=== PATIENT | male | born 1955 | race Caucasian/White ===

== ENCOUNTER 2023-02-25 08:15 | Observation (INO) | payer OTHER ==
--- OUTSIDE RECORDS SUMMARY | 2023-02-25 08:30 | XMS REPORT | Continuity of Care Document ---
:1955 Author Organization [facility] t Address [address] [place] [address] [address] [place] [address] Care Team Providers Name Role Phone Ji CUMMINS, Tani Acosta Primary Care Physician Zara Kumari Attending Clinician Unavailable Brenden Anthony Attending Clinician Unavailable Jae Jaffe I Attending Clinician Unavailable Mehran Rowe Attending Clinician Unavailable Rose Davies Physic Attending Clinician Unavailable IkRadha Attending Clinician Unavailable Ian Coronel Attending Clinician Unavailable Rose Davies Physic Admitting Clinician Unavailable Jae Jaffe I Admitting Clinician Unavailable IksoilaC Admitting Clinician Unavailable Avel Banerjee Admitting Clinician Unavailable Payers Payer Name Policy Type Policy Number Effective Date Expiration Date Dave ROWE (MEDICARE [id number] 2019 REPLACEMENT PPO) 00:00:00 Problems Condition Condition Condition Status Onset Resolution Last Treating Co mments Source Name Details Category Date Date Treatment Clinician Date Upper Upper Problem Active 2020-09 [facility] respirator Respirator 1-20 Fa charlene y y 00:00: Practic infection Infection 00 e Type 2 Type 2 Disease Active Methodi diabetes diabetes 04-16 mellitus mellitus 00:00: Hospit a without without 00 l complicati complicati on, with on, with long-term long-term current current use of use of insulin insulin Essential Essential Disease Active Met [facility] hypertensi hypertensi 04-16 on on 00:00: Hospita 00 l Mixed Mixed Disease Active Methodi hyperlipid hyperlipid 04-16 emia emia 00:00: Hospita 00 l Dupuytren' Dupuytren' Disease Active M ethodi s s 04-16 contractur contractur 00:00: Ho spita e e 00 l Hypotensio Hypotensio Disease Active M ethodi n n 04-16 00:00: Hospita 00 l director state pharmacy correction Disease Active Met hodi current current 04-16 use of use of 00:00: Hospita anticoagul anticoagul 00 l ant ant therapy therapy Paroxysmal Paroxysmal Disease Active M ethodi atrial atrial 04-16 fibrillati fibrillati 00:00: Ho spita on on 00 l Chronic Chronic Disease Active Methodi fatigue fatigue 04-16 00:00: Hospita 00 l BMI BMI Disease Active Methodi 38.0-38.9, 38.0-38.9, 04-16 adult adult 00:00: Hospita 00 l Generalize Generalize Disease Active M ethodi d anxiety d anxiety 04-16 disorder disorder 00:00: Hospit a 00 l Precordial Precordial Disease Active 0 M ethodi pain pain 04-16 00:00: Hospita 00 l Gastroesop Gastroesop Disease Active M ethodi hageal hageal 04-16 reflux reflux 00:00: Hospita disease disease 00 l without without esophagiti esophagiti s s Paresthesi Paresthesi Disease Active M ethodi a of both a of both 04-16 feet feet 00:00: Hospita 00 l Allergies, Adverse Reactions, Alerts Allergy Allergy Status Severity Reaction(s) Onset Inactive Treating Comm ents Source Name Type Date Date Clinician NSAIDS DA Active MO SWOLLEN 2021- [facility] (Non-[facility] THROAT 1-03 Clear roidal 00:00: [place] Anti-Inf 00 [facility] aspirin DA Active MO SWOLLEN 2021- [facility] THROAT 1-03 Clear 00:00: [place] [facility] aspirin DA Active U UNKNOWN 2021- [facility] 9-28 Clear 00:00: [place] [facility] ASPIRIN DA Active U UNKNOWN [facility] 9-27 Clear 00:00: [place] [facility] NSAIDS DA Active SV ANAPHYLAXIS [facility] (Non-Artur 3-31 Clear roidal 00:00: [place] Anti-Inf 00 [facility] NSAIDS DA Active SV 2020- [facility] (Non-Artur 3-31 Clear roidal 00:00: [place] Anti-Inf 00 [facility] aspirin DA Active SV ANAPHYLAXIS 2020- [facility] 3-30 Clear 00:00: [place] [facility] aspirin DA Active SV 2020- [facility] 3-30 Clear 00:00: [place] [facility] Nsaids Propensi Active Anaphylaxis Asprin Met hodi (Non-Artur ty to 7-[address] roidal adverse 00:00: Asprin Hospita Anti-Inf reaction 00 products l [facility] s to y Drug) drug aspirin DA Active U 2002-0 [facility] 8-22 Clear 00:00: [place] [facility] ASPIRIN DA Active U 2001-0 [facility] 8-22 Clear 00:00: [place] [facility] No Known DA Active U 2001-0 [facility] Contrast 8-22 Clear Allergie 00:00: [place] [facility] No Known DA Active U 2002-0 [facility] Food 8-22 Clear Allergie 00:00: [place] [facility] No Known DA Active U 2002-0 [facility] Other 8-22 Clear Allergie 00:00: [place] [facility] Family History Family Member Diagnosis Comments Start Date Stop Date Source Natural father Diabetes [facility] Natural father Heart disease [facility] Social History Social Habit Start Date Stop Date Quantity Comments Source Gender identity [facility] Sexual [facility] History of tobacco Cigarette Smoker [facility] Alcohol intake 2018-04-16 2018-04-16 Current drinker [facility] 00:00:00 00:00:00 of alcohol Hospital (finding) History of Social 2018-04-16 2018-04-[address] function 00:00:00 00:00:00 Hospital Tobacco Comment 2018-04-16 2018-04-16 patient states he [facility] 00:[facility]:00 has not smoked Hospital for 3 months now Alcohol Comment 2018-04-16 2018-04-16 occasional [facility] 00:00:00 00:00:00 Hospital Cigarettes smoked 2018-04-16 2018-04-[address] current (pack per 00:00:00 00:00:00 Hospita l day) - Reported Cigarette 2018-04-16 2018-04-16 [facility] pack-years 00:00:00 00:00:00 Hospital Tobacco use and 2018-04-16 2018-04-16 Smokeless tobacco [facility] exposure 00:00:00 00:00:00 non-user Hospital Sex Assigned At [birth year] [facility] 00:00:[facility] 00:[facility]:00 Hospital Smoking Status Start Date Stop Date Source Never Smoker [facility] Ex-smoker 2018-04-16 00:00:00 2018-04-16 00:00:00 Method t [facility] Medications Ordered Filled Start Stop Current Ordering Indication Dosage Frequency Signature Comments Components Source Medication Medication Date Date Medication? Clinician (SIG) Name Name metFORMIN 2017-09 Yes TAKE ONE [facility] (GLUCOPHAGE 0-[address] ) 1,000 mg 00:00: MOUTH Hospit a tablet 00 TWICE l DAILY with meals. metFORMIN 2017-09 Yes TAKE ONE [facility] (GLUCOPHAGE 0-[address] ) 1,000 mg 00:00: MOUTH Hospit a tablet 00 TWICE l DAILY with meals. metFORMIN 2017-09 Yes TAKE ONE [facility] (GLUCOPHAGE 0-[address] ) 1,000 mg 00:00: MOUTH Hospit a tablet 00 TWICE l DAILY with meals. metFORMIN 2017-09 Yes TAKE ONE [facility] (GLUCOPHAGE 0-[address] ) 1,000 mg 00:00: MOUTH Hospit a tablet 00 TWICE l DAILY with meals. metFORMIN 2017-09 Yes TAKE ONE [facility] (GLUCOPHAGE 0-[address] ) 1,000 mg 00:00: MOUTH Hospit a tablet 00 TWICE l DAILY with meals. metFORMIN 2017-09 Yes TAKE ONE [facility] (GLUCOPHAGE 0-23 TABLET BY ) 1,000 mg 00:00: MOUTH Hospit a tablet 00 TWICE l DAILY with meals. metFORMIN 2017-09 Yes TAKE ONE [facility] (GLUCOPHAGE 0-23 TABLET BY ) 1,000 mg 00:00: MOUTH Hospit a tablet 00 TWICE l DAILY with meals. metFORMIN 2017-09 Yes TAKE ONE [facility] (GLUCOPHAGE 0-23 TABLET BY ) 1,000 mg 00:00: MOUTH Hospit a tablet 00 TWICE l DAILY with meals. metFORMIN 2017-09 Yes TAKE ONE [facility] (GLUCOPHAGE 0-23 TABLET BY ) 1,000 mg 00:00: MOUTH Hospit a tablet 00 TWICE l DAILY with meals. FENOFIBRATE 0 Yes 135mg Take 135 M ethodi ORAL 7-[address] 09:29: mouth. Hospita 18 l FENOFIBRATE 2017- Yes 135mg Take 135 M ethodi ORAL 7-[address] 09:29: mouth. Hospita 18 l FENOFIBRATE 2017-0 Yes 135mg Take 135 M ethodi ORAL 7-[address] 09:29: mouth. Hospita 18 l FENOFIBRATE 2017-0 Yes 135mg Take 135 M ethodi ORAL 7-[address] 09:29: mouth. Hospita 18 l FENOFIBRATE 2018-0 Yes 135mg Take 135 M ethodi ORAL 7-[address] 09:29: mouth. Hospita 18 l FENOFIBRATE 2017-0 Yes 135mg Take 135 M ethodi ORAL 7-[address] 09:29: mouth. Hospita 18 l FENOFIBRATE 2017-0 Yes 135mg Take 135 M ethodi ORAL 7-[address] 09:29: mouth. Hospita 18 l FENOFIBRATE 2018-0 Yes 135mg Take 135 M ethodi ORAL 7-[address] 09:29: mouth. Hospita 18 l FENOFIBRATE 2017-0 Yes 135mg Take 135 M ethodi ORAL 7-[address] 09:29: mouth. Hospita 18 l METOPROLOL 2017-0 Yes 100mg Take 100 [facility] SUCCINATE 7-[address] ORAL 09:20: mouth. Hospita 54 l cholecalcif 2017-0 Yes 2000U Take 2,000 Methodi riki, 7-[address] vitamin D3, 09:20: mouth. Hosp jenniffer (VITAMIN D3 54 l ORAL) PARoxetine 2018-0 Yes 25mg QD Take 25 mg M ethodi CR 7-[address] (PAXIL-CR) 09:20: every Hospit a 25 MG 24 hr 54 morning. l tablet amLODIPine 2018-0 Yes 5mg QD Take 5 mg Me [facility] (NORVASC) 5 7-[address] mg tablet 09:20: daily. Hospit a 54 l METOPROLOL 2018-0 Yes 100mg Take 100 Me thodi SUCCINATE 7-[address] ORAL 09:20: mouth. Hospita 54 l cholecalcif 2018-0 Yes 2000U Take 2,000 Methodi riki, 7-[address] vitamin D3, 09:20: mouth. Hosp jenniffer (VITAMIN D3 54 l ORAL) PARoxetine 2018-0 Yes 25mg QD Take 25 mg M ethodi CR 7-[address] (PAXIL-CR) 09:20: every Hospit a 25 MG 24 hr 54 morning. l tablet amLODIPine 2018-0 Yes 5mg QD Take 5 mg Me thodi (NORVASC) 5 7-[address] mg tablet 09:20: daily. Hospit a 54 l METOPROLOL 2018-0 Yes 100mg Take 100 Me thodi SUCCINATE 7-[address] ORAL 09:20: mouth. Hospita 54 l cholecalcif 2018-0 Yes 2000U Take 2,000 Methodi riki, 7-[address] vitamin D3, 09:20: mouth. Hosp jenniffer (VITAMIN D3 54 l ORAL) PARoxetine 2018-0 Yes 25mg QD Take 25 mg M ethodi CR 7-[address] (PAXIL-CR) 09:20: every Hospit a 25 MG 24 hr 54 morning. l tablet amLODIPine 2018-0 Yes 5mg QD Take 5 mg Me [facility] (NORVASC) 5 7-[address] mg tablet 09:20: daily. Hospit a 54 l PARoxetine 2018-0 Yes 25mg QD Take 25 mg M ethodi CR 7-[address] (PAXIL-CR) 09:20: every Hospit a 25 MG 24 hr 54 morning. l tablet amLODIPine 2018-0 Yes 5mg QD Take 5 mg Me [facility] (NORVASC) 5 7-[address] mg tablet 09:20: daily. Hospit a 54 l METOPROLOL 2018-0 Yes 100mg Take 100 Me thodi SUCCINATE 7-[address] ORAL 09:20: mouth. Hospita 54 l cholecalcif 2018-0 Yes 2000U Take 2,000 Methodi riki, 7-[address] vitamin D3, 09:20: mouth. Hosp jenniffer (VITAMIN D3 54 l ORAL) METOPROLOL 2018-0 Yes 100mg Take 100 Me thodi SUCCINATE 7-[address] ORAL 09:20: mouth. Hospita 54 l cholecalcif 2018-0 Yes 2000U Take 2,000 Methodi riki, 7-[address] vitamin D3, 09:20: mouth. Hosp jenniffer (VITAMIN D3 54 l ORAL) PARoxetine 2018-0 Yes 25mg QD Take 25 mg M ethodi CR 7-[address] (PAXIL-CR) 09:20: every Hospit a 25 MG 24 hr 54 morning. l tablet amLODIPine 2018-0 Yes 5mg QD Take 5 mg Me [facility] (NORVASC) 5 7-[address] mg tablet 09:20: daily. Hospit a 54 l METOPROLOL 2018-0 Yes 100mg Take 100 Me thodi SUCCINATE 7-[address] ORAL 09:20: mouth. Hospita 54 l cholecalcif 2018-0 Yes 2000U Take 2,000 Methodi riki, 7-[address] vitamin D3, 09:20: mouth. Hosp jenniffer (VITAMIN D3 54 l ORAL) PARoxetine 2018-0 Yes 25mg QD Take 25 mg M ethodi CR 7-[address] (PAXIL-CR) 09:20: every Hospit a 25 MG 24 hr 54 morning. l tablet amLODIPine 2018-0 Yes 5mg QD Take 5 mg Me [facility]odi (NORVASC) 5 7-[address] mg tablet 09:20: daily. Hospit a 54 l METOPROLOL 2018-0 Yes 100mg Take 100 Me thodi SUCCINATE 7-[address] ORAL 09:20: mouth. Hospita 54 l cholecalcif 2018-0 Yes 2000U Take 2,000 Methodi riki, 7-[address] vitamin D3, 09:20: mouth. Hosp jenniffer (VITAMIN D3 54 l ORAL) PARoxetine 2018-0 Yes 25mg QD Take 25 mg M ethodi CR 7-[address] (PAXIL-CR) 09:20: every Hospit a 25 MG 24 hr 54 morning. l tablet amLODIPine 2018-0 Yes 5mg QD Take 5 mg Me [facility] (NORVASC) 5 7-[address] mg tablet 09:20: daily. Hospit a 54 l METOPROLOL 2018-0 Yes 100mg Take 100 Me [facility]odi SUCCINATE 7-[address] ORAL 09:20: mouth. Hospita 54 l cholecalcif 2018-0 Yes 2000U Take 2,000 Methodi riki, 7-[address] vitamin D3, 09:20: mouth. Hosp jenniffer (VITAMIN D3 54 l ORAL) PARoxetine 2018-0 Yes 25mg QD Take 25 mg M ethodi CR 7-[address] (PAXIL-CR) 09:20: every Hospit a 25 MG 24 hr 54 morning. l tablet amLODIPine 2018-0 Yes 5mg QD Take 5 mg Me [facility]odi (NORVASC) 5 7-[address] mg tablet 09:20: daily. Hospit a 54 l METOPROLOL 2018-0 Yes 100mg Take 100 Me thodi SUCCINATE 7-[address] ORAL 09:20: mouth. Hospita 54 l cholecalcif 2018-0 Yes 2000U Take 2,000 Methodi riki, 7-[address] vitamin D3, 09:20: mouth. Hosp jenniffer (VITAMIN D3 54 l ORAL) PARoxetine 2018-0 Yes 25mg QD Take 25 mg M ethodi CR 7-[address] (PAXIL-CR) 09:20: every Hospit a 25 MG 24 hr 54 morning. l tablet amLODIPine 2018-0 Yes 5mg QD Take 5 mg Me [facility]odi (NORVASC) 5 7-[address] mg tablet 09:20: daily. Hospit a 54 l docosahexan 2018-0 Yes 3600mg Take 3,600 [facility] oic 7-[address] acid/epa 09:16: mouth. Hospita (FISH OIL 06 l ORAL) esomeprazol 2018-0 Yes 20mg QD Take 20 mg Methodi e (NexIUM) 7-[address] 20 MG 09:16: daily Hospita capsule 06 before l breakfast. valsartan-h 2018-0 Yes 1{tbl} QD Take 1 Me [facility]odi ydrochlorot 7-[address] hiazide 09:16: mouth Hospita (DIOVAN-HCT 06 daily. l ) 320-25 mg per tablet edoxaban 2018-0 Yes 60mg QD Take 60 mg Met hodi (SAVAYSA) 7-[address] 60 mg 09:16: daily. Hospita tablet 06 l docosahexan 2018-0 Yes 3600mg Take 3,600 Methodi oic 7-[address] acid/epa 09:16: mouth. Hospita (FISH OIL 06 l ORAL) esomeprazol 2018-0 Yes 20mg QD Take 20 mg Methodi e (NexIUM) 7-[address] 20 MG 09:16: daily Hospita capsule 06 before l breakfast. valsartan-h 2018-0 Yes 1{tbl} QD Take 1 Me thodi ydrochlorot 7-[address] hiazide 09:16: mouth Hospita (DIOVAN-HCT 06 daily. l ) 320-25 mg per tablet edoxaban 2018-0 Yes 60mg QD Take 60 mg Met hodi (SAVAYSA) 7-[address] 60 mg 09:16: daily. Hospita tablet 06 l docosahexan 2018-0 Yes 3600mg Take 3,600 Methodi oic 7-[address] acid/epa 09:16: mouth. Hospita (FISH OIL 06 l ORAL) esomeprazol 2018-0 Yes 20mg QD Take 20 mg Methodi e (NexIUM) 7-[address] 20 MG 09:16: daily Hospita capsule 06 before l breakfast. valsartan-h 2018-0 Yes 1{tbl} QD Take 1 Me thodi ydrochlorot 7-[address] hiazide 09:16: mouth Hospita (DIOVAN-HCT 06 daily. l ) 320-25 mg per tablet edoxaban 2018-0 Yes 60mg QD Take 60 mg Met hodi (SAVAYSA) 7-[address] 60 mg 09:16: daily. Hospita tablet 06 l docosahexan 2018-0 Yes 3600mg Take 3,600 Methodi oic 7-[address] acid/epa 09:16: mouth. Hospita (FISH OIL 06 l ORAL) esomeprazol 2018-0 Yes 20mg QD Take 20 mg Methodi e (NexIUM) 7-[address] 20 MG 09:16: daily Hospita capsule 06 before l breakfast. valsartan-h 2018-0 Yes 1{tbl} QD Take 1 Me thodi ydrochlorot 7-[address] hiazide 09:16: mouth Hospita (DIOVAN-HCT 06 daily. l ) 320-25 mg per tablet edoxaban 2018-0 Yes 60mg QD Take 60 mg Met hodi (SAVAYSA) 7-[address] 60 mg 09:16: daily. Hospita tablet 06 l docosahexan 2018-0 Yes 3600mg Take 3,600 Methodi oic 7-[address] acid/epa 09:16: mouth. Hospita (FISH OIL 06 l ORAL) esomeprazol 2018-0 Yes 20mg QD Take 20 mg Methodi e (NexIUM) 7-[address] 20 MG 09:16: daily Hospita capsule 06 before l breakfast. valsartan-h 2018-0 Yes 1{tbl} QD Take 1 Me thodi ydrochlorot 7-[address] hiazide 09:16: mouth Hospita (DIOVAN-HCT 06 daily. l ) 320-25 mg per tablet edoxaban 2018-0 Yes 60mg QD Take 60 mg Met hodi (SAVAYSA) 7-[address] 60 mg 09:16: daily. Hospita tablet 06 l docosahexan 2018-0 Yes 3600mg Take 3,600 Methodi oic 7-[address] acid/epa 09:16: mouth. Hospita (FISH OIL 06 l ORAL) esomeprazol 2018-0 Yes 20mg QD Take 20 mg Methodi e (NexIUM) 7-[address] 20 MG 09:16: daily Hospita capsule 06 before l breakfast. valsartan-h 2018-0 Yes 1{tbl} QD Take 1 Me thodi ydrochlorot 7-[address] hiazide 09:16: mouth Hospita (DIOVAN-HCT 06 daily. l ) 320-25 mg per tablet edoxaban 2018-0 Yes 60mg QD Take 60 mg Met hodi (SAVAYSA) 7-[address] 60 mg 09:16: daily. Hospita tablet 06 l docosahexan 2018-0 Yes 3600mg Take 3,600 Methodi oic 7-[address] acid/epa 09:16: mouth. Hospita (FISH OIL 06 l ORAL) esomeprazol 2018-0 Yes 20mg QD Take 20 mg Methodi e (NexIUM) 7-[address] 20 MG 09:16: daily Hospita capsule 06 before l breakfast. valsartan-h 2018-0 Yes 1{tbl} QD Take 1 Me thodi ydrochlorot 7-[address] hiazide 09:16: mouth Hospita (DIOVAN-HCT 06 daily. l ) 320-25 mg per tablet edoxaban 2018-0 Yes 60mg QD Take 60 mg Met hodi (SAVAYSA) 7-[address] 60 mg 09:16: daily. Hospita tablet 06 l docosahexan 2018-0 Yes 3600mg Take 3,600 Methodi oic 7-[address] acid/epa 09:16: mouth. Hospita (FISH OIL 06 l ORAL) esomeprazol 2018-0 Yes 20mg QD Take 20 mg Methodi e (NexIUM) 7-[address] 20 MG 09:16: daily Hospita capsule 06 before l breakfast. valsartan-h 2018-0 Yes 1{tbl} QD Take 1 [facility]odi ydrochlorot 7-[address] hiazide 09:16: mouth Hospita (DIOVAN-HCT 06 daily. l ) 320-25 mg per tablet edoxaban 2018-0 Yes 60mg QD Take 60 mg Met hodi (SAVAYSA) 7-[address] 60 mg 09:16: daily. Hospita tablet 06 l docosahexan 2018-0 Yes 3600mg Take 3,600 Methodi oic 7-[address] acid/epa 09:16: mouth. Hospita (FISH OIL 06 l ORAL) esomeprazol 2018-0 Yes 20mg QD Take 20 mg Methodi e (NexIUM) 7-[address] 20 MG 09:16: daily Hospita capsule 06 before l breakfast. valsartan-h 2018-0 Yes 1{tbl} QD Take 1 Me [facility]odi ydrochlorot 7-[address] hiazide 09:16: mouth Hospita (DIOVAN-HCT 06 daily. l ) 320-25 mg per tablet edoxaban 2018-0 Yes 60mg QD Take 60 mg Met hodi (SAVAYSA) 7-[address] 60 mg 09:16: daily. Hospita tablet 06 l ascorbic 2018-0 Yes 500mg QD Take 500 [facility] acid, 7-[address] vitamin C, 09:13: mouth Hospit a (ascorbic 00 daily. l acid with edbbie hips) 500 MG tablet multivit-mi 2017-0 Yes Take by Met hodi nerals/ferr 04-[address] ous fum 09:13: Hospita (MULTI 00 l VITAMIN ORAL) ascorbic 2017-0 Yes 500mg QD Take 500 [facility] acid, 7-[address] vitamin C, 09:13: mouth Hospit a (ascorbic 00 daily. l acid with debbie hips) 500 MG tablet multivit-mi 2017-0 Yes Take by Met hodi nerals/ferr [address] ous fum 09:13: Hospita (MULTI 00 l VITAMIN ORAL) ascorbic 2017-0 Yes 500mg QD Take 500 [facility] acid, 7-[address] vitamin C, 09:13: mouth Hospit a (ascorbic 00 daily. l acid with debbie hips) 500 MG tablet multivit-mi 2017-0 Yes Take by Met hodi nerals/ferr 04-[address] ous fum 09:13: Hospita (MULTI 00 l VITAMIN ORAL) ascorbic 2017-0 Yes 500mg QD Take 500 [facility] acid, 7-[address] vitamin C, 09:13: mouth Hospit a (ascorbic 00 daily. l acid with debbie hips) 500 MG tablet multivit-mi 2017-0 Yes Take by Met hodi nerals/ferr 04-[address] ous fum 09:13: Hospita (MULTI 00 l VITAMIN ORAL) ascorbic 2018-0 Yes 500mg QD Take 500 [facility] acid, 7-[address] vitamin C, 09:13: mouth Hospit a (ascorbic 00 daily. l acid with debbie hips) 500 MG tablet multivit-mi 2018-0 Yes Take by Met hodi nerals/ferr [address] ous fum 09:13: Hospita (MULTI 00 l VITAMIN ORAL) ascorbic 2018-0 Yes 500mg QD Take 500 [facility] acid, 7-[address] vitamin C, 09:13: mouth Hospit a (ascorbic 00 daily. l acid with debbie hips) 500 MG tablet multivit-mi 2018-0 Yes Take by Met hodi nerals/ferr 7-[address] ous fum 09:13: Hospita (MULTI 00 l VITAMIN ORAL) ascorbic 2018-0 Yes 500mg QD Take 500 [facility] acid, 7-[address] vitamin C, 09:13: mouth Hospit a (ascorbic 00 daily. l acid with debbie hips) 500 MG tablet multivit-mi 2017-0 Yes Take by Met hodi nerals/ferr 7-[address] ous fum 09:13: Hospita (MULTI 00 l VITAMIN ORAL) ascorbic 2018-0 Yes 500mg QD Take 500 [facility] acid, 7-[address] vitamin C, 09:13: mouth Hospit a (ascorbic 00 daily. l acid with debbie hips) 500 MG tablet multivit-mi 2017-0 Yes Take by Met hodi nerals/ferr 7-[address] ous fum 09:13: Hospita (MULTI 00 l VITAMIN ORAL) ascorbic 2017-0 Yes 500mg QD Take 500 [facility] acid, 7-24 mg by vitamin C, 09:13: mouth Hospit a (ascorbic 00 daily. l acid with debbie hips) 500 MG tablet multivit-mi 2017-0 Yes Take by Met hodi nerals/ferr 7-[address] ous fum 09:13: Hospita (MULTI 00 l VITAMIN ORAL) canaglifloz Yes 300mg QD Take 300 M ethodi in 7-[address] (INVOKANA) 00:00: mouth Hospit a 300 mg 00 daily. l tablet pravastatin Yes 80mg QD Take 1 [facility] (PRAVACHOL) 7-24 tablet (80 st 80 MG 00:00: mg total) Hospita tablet 00 by mouth l nightly. dulaglutide 2017- Yes 1.5mg Q1W Inject 1.5 [facility] (TRULICITY) 7-[address] 1.5 mg/0.5 00:00: the skin Hos senait mL pen 00 every 7 l injector days. insulin 2018-0 Yes 125U QD Inject 125 [facility] degludec 7-[address] (TRESIBA 00:00: under the Hosp jenniffer FLEXTOUCH 00 skin l U-200) 200 nightly. unit/mL (3 mL) insulin pen canaglifloz 2018-0 Yes 300mg QD Take 300 M ethodi in 7-[address] (INVOKANA) 00:00: mouth Hospit a 300 mg 00 daily. l tablet pravastatin 2018-0 Yes 80mg QD Take 1 [facility] (PRAVACHOL) 7-24 tablet (80 st 80 MG 00:00: mg total) Hospita tablet 00 by mouth l nightly. dulaglutide 2018-0 Yes 1.5mg Q1W Inject 1.5 [facility] (TRULICITY) 7-[address] 1.5 mg/0.5 00:00: the skin Hos senait mL pen 00 every 7 l injector days. insulin 2018-0 Yes 125U QD Inject 125 [facility] degludec 7-[address] (TRESIBA 00:00: under the [facility]osp [facility] FLEXTOUCH 00 skin l U-200) 200 nightly. unit/mL (3 mL) insulin pen canaglifloz 2018-0 Yes 300mg QD Take 300 M ethodi in 7-[address] (INVOKANA) 00:00: mouth Hospit a 300 mg 00 daily. l tablet pravastatin 2018-0 Yes 80mg QD Take 1 [facility] (PRAVACHOL) 7-24 tablet (80 st 80 MG 00:00: mg total) Hospita tablet 00 by mouth l nightly. dulaglutide 2018-0 Yes 1.5mg Q1W Inject 1.5 [facility] (TRULICITY) 7-[address] 1.5 mg/0.5 00:00: the skin Hos senait mL pen 00 every 7 l injector days. insulin 2018-0 Yes 125U QD Inject 125 [facility] degludec 7-[address] (TRESIBA 00:00: under the [facility]osp [facility] FLEXTOUCH 00 skin l U-200) 200 nightly. unit/mL (3 mL) insulin pen canaglifloz 2018-0 Yes 300mg QD Take 300 M ethodi in 7-[address] (INVOKANA) 00:00: mouth Hospit a 300 mg 00 daily. l tablet canaglifloz 2018-0 Yes 300mg QD Take 300 M ethodi in 7-[address] (INVOKANA) 00:00: mouth Hospit a 300 mg 00 daily. l tablet pravastatin 2018-0 Yes 80mg QD Take 1 [facility] (PRAVACHOL) 7-24 tablet (80 st 80 MG 00:00: mg total) Hospita tablet 00 by mouth l nightly. dulaglutide 2018-0 Yes 1.5mg Q1W Inject 1.5 [facility] (TRULICITY) 7-[address] 1.5 mg/0.5 00:00: the skin Hos senait mL pen 00 every 7 l injector days. insulin 2018-0 Yes 125U QD Inject 125 [facility] degludec 7-[address] (TRESIBA 00:00: under the Hosp jenn[facility] FLEXTOUCH 00 skin l U-200) 200 nightly. unit/mL (3 mL) insulin pen pravastatin 2018-0 Yes 80mg QD Take 1 [facility] (PRAVACHOL) 7-24 tablet (80 st 80 MG 00:00: mg total) Hospita tablet 00 by mouth l nightly. dulaglutide 2018-0 Yes 1.5mg Q1W Inject 1.5 [facility] (TRULICITY) 7-[address] 1.5 mg/0.5 00:00: the skin Hos senait mL pen 00 every 7 l injector days. insulin 2018-0 Yes 125U QD Inject 125 [facility] degludec 7-[address] (TRESIBA 00:00: under the [facility]osp j[facility] FLEXTOUCH 00 skin l U-200) 200 nightly. unit/mL (3 mL) insulin pen canaglifloz 2018-0 Yes 300mg QD Take 300 M ethodi in 7-[address] (INVOKANA) 00:00: mouth Hospit a 300 mg 00 daily. l tablet pravastatin 2018-0 Yes 80mg QD Take 1 [facility] (PRAVACHOL) 7-24 tablet (80 st 80 MG 00:00: mg total) Hospita tablet 00 by mouth l nightly. dulaglutide 2018-0 Yes 1.5mg Q1W Inject 1.5 [facility] (TRULICITY) 7-[address] 1.5 mg/0.5 00:00: the skin Hos senait mL pen 00 every 7 l injector days. insulin 2018-0 Yes 125U QD Inject 125 Meth usnita degludec 7-[address] (TRESIBA 00:00: under the Hosp jenniffer FLEXTOUCH 00 skin l U-200) 200 nightly. unit/mL (3 mL) insulin pen canaglifloz 2018-0 Yes 300mg QD Take 300 M ethodi in 7-[address] (INVOKANA) 00:00: mouth Hospit a 300 mg 00 daily. l tablet pravastatin 2018-0 Yes 80mg QD Take 1 [facility] (PRAVACHOL) 7-24 tablet (80 st 80 MG 00:00: mg total) Hospita tablet 00 by mouth l nightly. dulaglutide 2018-0 Yes 1.5mg Q1W Inject 1.5 Methodi (TRULICITY) 7-[address] 1.5 mg/0.5 00:00: the skin Hos senait mL pen 00 every 7 l injector days. insulin 2018-0 Yes 125U QD Inject 125 Meth sunita degludec 7-[address] (TRESIBA 00:00: under the Hosp jenniffer FLEXTOUCH 00 skin l U-200) 200 nightly. unit/mL (3 mL) insulin pen canaglifloz 2018-0 Yes 300mg QD Take 300 M ethodi in 7-[address] (INVOKANA) 00:00: mouth Hospit a 300 mg 00 daily. l tablet pravastatin 2018-0 Yes 80mg QD Take 1 Meth sunita (PRAVACHOL) 7-24 tablet (80 st 80 MG 00:00: mg total) Hospita tablet 00 by mouth l nightly. dulaglutide 2018-0 Yes 1.5mg Q1W Inject 1.5 Methodi (TRULICITY) 7-[address] 1.5 mg/0.5 00:00: the skin Hos senait mL pen 00 every 7 l injector days. insulin 2018-0 Yes 125U QD Inject 125 Meth sunita degludec 7-[address] (TRESIBA 00:00: under the Hosp jenniffer FLEXTOUCH 00 skin l U-200) 200 nightly. unit/mL (3 mL) insulin pen canaglifloz 2018-0 Yes 300mg QD Take 300 M ethodi in 7-[address] (INVOKANA) 00:00: mouth Hospit a 300 mg 00 daily. l tablet pravastatin 2018-0 Yes 80mg QD Take 1 Meth sunita (PRAVACHOL) 7-24 tablet (80 st 80 MG 00:00: mg total) Hospita tablet 00 by mouth l nightly. dulaglutide 2018-0 Yes 1.5mg Q1W Inject 1.5 Methodi (TRULICITY) 7-[address] 1.5 mg/0.5 00:00: the skin Hos senait mL pen 00 every 7 l injector days. insulin 2018-0 Yes 125U QD Inject 125 Meth sunita degludec 7-[address] (TRESIBA 00:00: under the Hosp jenniffer FLEXTOUCH 00 skin l U-200) 200 nightly. unit/mL (3 mL) insulin pen amiodarone amiodarone No amiodarone [place] 100 mg 100 mg 100 mg Family tablet tablet tablet Practic e atorvastati atorvastati No atorvastat [place] n 40 mg n 40 mg in 40 mg Famil y tablet tablet tablet Practic e Basaglar Basaglar No Basaglar Melissa lois KwikPen KwikPen KwikPen Family U-100 U-100 U-100 Practic Insulin 100 Insulin 100 Insulin e unit/mL (3 unit/mL (3 100 mL) mL) unit/mL (3 subcutaneou subcutaneou mL) s s subcutaneo us BD BD No BD [place] Ultra-Fine Ultra-Fine Ultra-Fine Family Shantal Pen Shantal Pen Shantal Pen Pra ctic Needle 32 Needle 32 Needle 32 e gauge x gauge x gauge x " " " Bromfed DM Bromfed DM No 10mL Q4H Bromfed DM [facility] 2 mg-30 2 mg-30 2 mg-30 Family mg-10 mg/5 mg-10 mg/5 mg-10 mg/5 Practic mL oral mL oral mL oral e syrup Take syrup Take syrup Take 10 mL every 10 mL every 10 mL 4 hours by 4 hours by every 4 oral route oral route hours by for 7 days. for 7 days. oral route for 7 days. ciprofloxac ciprofloxac No ciprofloxa [place] in 500 mg in 500 mg arsen 500 mg Family tablet tablet tablet Practic e clonazepam clonazepam No clonazepam [facility] 1 mg tablet 1 mg tablet 1 mg F amily tablet Practic e clopidogrel clopidogrel No clopidogre [place] 75 mg 75 mg l 75 mg Family tablet tablet tablet Practic e gemfibrozil gemfibrozil No gemfibrozi [facility] 600 mg 600 mg l 600 mg Family tablet tablet tablet Practic e Jardiance Jardiance No Jardiance [place] 25 mg 25 mg 25 mg Family tablet tablet tablet Practic e losartan losartan No losartan [facility] lois 100 100 100 Family mg-hydrochl mg-hydrochl mg-hydroch Practic orothiazide orothiazide lorothiazi e 25 mg 25 mg de 25 mg tablet tablet tablet metformin metformin No metformin [facility] 1,000 mg 1,000 mg 1,000 mg Fam chantale tablet tablet tablet Practic e metoprolol metoprolol No metoprolol [facility] succinate succinate succinate Family ER 100 mg ER 100 mg ER 100 mg Practic tablet,exte tablet,exte tablet,ext e nded nded ended release 24 release 24 release 24 hr hr hr metoprolol metoprolol No metoprolol [facility] tartrate 25 tartrate 25 tartrate Family mg tablet mg tablet 25 mg Prac tic tablet e OneTouch OneTouch No OneTouch [facility] lois Delica Plus Delica Plus Delica Family Lancet 33 Lancet 33 Plus Pract ic gauge gauge Lancet 33 e gauge OneTouch OneTouch No OneTouch [facility] Verio Flex Verio Flex Verio Flex Family Meter Meter Meter Practic e OneTouch OneTouch No [facility] Ver[facility] test Verio test Verio test Family strips strips strips Practic e pantoprazol pantoprazol No pantoprazo [place] e 40 mg e 40 mg le 40 mg Famil y tablet,francisco tablet,francisco tablet,del Practic yed release yed release ayed e release paroxetine paroxetine No paroxetine [facility] ER 37.5 mg ER 37.5 mg ER 37.5 mg Family tablet,exte tablet,exte tablet,ext Practic nded nded ended e release 24 release 24 release 24 hr hr hr pioglitazon pioglitazon No pioglitazo [facility] e 30 mg e 30 mg ne 30 mg Famil y tablet tablet tablet Practic e Trulicity Trulicity No Trulicity [facility] 1.5 mg/0.5 1.5 mg/0.5 1.5 mg/0.5 Family mL mL mL Practic subcutaneou subcutaneou subcutaneo e s pen s pen us pen injector injector injector Xarelto 20 Xarelto 20 No Xarelto 20 Village mg tablet mg tablet mg tablet Family Practic e Zithromax Zithromax No Zithromax [facility] Z-Bib 250 Z-Bib 250 Z-Bib 250 Family mg tablet mg tablet mg tablet Practic TAKE 2 TAKE 2 TAKE 2 e TABLETS TABLETS TABLETS (500 MG) BY (500 MG) BY (500 MG) ORAL ROUTE ORAL ROUTE BY ORAL ONCE DAILY ONCE DAILY ROUTE ONCE FOR 1 DAY FOR 1 DAY DAILY FOR THEN 1 THEN 1 1 DAY THEN TABLET (250 TABLET (250 1 TABLET MG) BY ORAL MG) BY ORAL (250 MG) ROUTE ONCE ROUTE ONCE BY ORAL DAILY FOR 4 DAILY FOR 4 ROUTE ONCE DAYS DAYS DAILY FOR 4 DAYS Immunizations Ordered Immunization Filled Immunization Date Status Commen ts Source Name Name COVID-19, mRNA, COVID-19, mRNA, 2020-11-03 Completed [facility] Family LNP-S, PF, 100 LNP-S, PF, 100 00:00:00 Practi ce mcg/0.5 mL dose mcg/0.5 mL dose (Moderna) (Moderna) COVID-19, mRNA, COVID-19, mRNA, 2020-10-06 Completed Vill age Family LNP-S, PF, 100 LNP-S, PF, 100 00:00:00 Practi ce mcg/0.5 mL dose mcg/0.5 mL dose (Moderna) (Moderna) Procedures Procedure Date / Time Performed Performing Clinician [facility] e [id number] 2020-12-27 00:00:00 PATMA.12 [facility] [id number] 2020-12-23 00:00:00 CHAAB.01 [facility] [id number] 2020-12-23 00:00:00 CHAAB.01 [facility] [id number] 2020-12-23 00:00:00 CHAAB.01 [facility] [id number] 2020-12-23 00:00:00 CHAAB.01 [facility] [id number] 2020-12-23 00:00:00 MAYJO [facility] [id number] 2020-12-23 00:00:00 MAYJO [facility] [id number] 2020-12-22 00:00:00 SHABA.01 [facility] [id number] 2020-12-22 00:00:00 SHABA.01 [facility] Hernia Repair W/mesh 2011-07-25 00:00:00 [facility] Plan of Care Planned Activity Planned Date Details Comments Source Future Scheduled Test 2022-12-27 COVID-19 VACCINE (#1) [facility] 14:21:13 [code = COVID-19 VACCINE (#1)] Future Scheduled Test 2022-12-[address] [facility] 14:21:13 [code = COLONOSCOPY SCREENING] Future Scheduled Test 2022-12-27 SHINGLES VACCINES (1 [facility] 14:21:13 of 2) [code = SHINGLES VACCINES (1 of 2)] Future Scheduled Test 2022-12-27 65+ PNEUMOCOCCAL [facility] 14:21:13 VACCINE (1 - PCV) [code = 65+ PNEUMOCOCCAL VACCINE (1 - PCV)] Future Scheduled Test 2022-12-27 INFLUENZA VACCINE [facility] 14:21:13 [code = INFLUENZA VACCINE] Future Scheduled Test 2022-09-06 COVID-19 VACCINE (#1) [facility] 12:35:03 [code = COVID-19 VACCINE (#1)] Future Scheduled Test 2022-09-[address] [facility] 12:35:03 [code = COLONOSCOPY SCREENING] Future Scheduled Test 2022-09-06 SHINGLES VACCINES (1 [facility] 12:35:03 of 2) [code = SHINGLES VACCINES (1 of 2)] Future Scheduled Test 2022-09-06 65+ PNEUMOCOCCAL [facility] 12:35:03 VACCINE (1 - PCV) [code = 65+ PNEUMOCOCCAL VACCINE (1 - PCV)] Future Scheduled Test 2022-09-06 INFLUENZA VACCINE [facility] 12:35:03 [code = INFLUENZA VACCINE] Future Scheduled Test 2022-09-06 COVID-19 VACCINE (#1) [facility] 12:35:03 [code = COVID-19 VACCINE (#1)] Future Scheduled Test 2022-09-[address] [facility] 12:35:03 [code = COLONOSCOPY SCREENING] Future Scheduled Test 2022-09-06 SHINGLES VACCINES (1 [facility] 12:35:03 of 2) [code = SHINGLES VACCINES (1 of 2)] Future Scheduled Test 2022-09-06 65+ PNEUMOCOCCAL [facility] 12:35:03 VACCINE (1 - PCV) [code = 65+ PNEUMOCOCCAL VACCINE (1 - PCV)] Future Scheduled Test 2022-09-06 INFLUENZA VACCINE [facility] 12:35:03 [code = INFLUENZA VACCINE] Future Scheduled Test 2022-09-06 COVID-19 VACCINE (#1) [facility] 12:35:03 [code = COVID-19 VACCINE (#1)] Future Scheduled Test 2022-09-[address] [facility] 12:35:03 [code = COLONOSCOPY SCREENING] Future Scheduled Test 2022-09-06 SHINGLES VACCINES (1 [facility] 12:35:03 of 2) [code = SHINGLES VACCINES (1 of 2)] Future Scheduled Test 2022-09-06 65+ PNEUMOCOCCAL [facility] 12:35:03 VACCINE (1 - PCV) [code = 65+ PNEUMOCOCCAL VACCINE (1 - PCV)] Future Scheduled Test 2022-09-06 INFLUENZA VACCINE [facility] 12:35:03 [code = INFLUENZA VACCINE] Future Scheduled Test 2022-09-06 COVID-19 VACCINE (#1) [facility] 12:35:03 [code = COVID-19 VACCINE (#1)] Future Scheduled Test 2022-09-[address] [facility] 12:35:03 [code = COLONOSCOPY SCREENING] Future Scheduled Test 2022-09-06 SHINGLES VACCINES (1 [facility] 12:35:03 of 2) [code = SHINGLES VACCINES (1 of 2)] Future Scheduled Test 2022-09-06 65+ PNEUMOCOCCAL [facility] 12:35:03 VACCINE (1 - PCV) [code = 65+ PNEUMOCOCCAL VACCINE (1 - PCV)] Future Scheduled Test 2022-09-06 INFLUENZA VACCINE [facility] 12:35:03 [code = INFLUENZA VACCINE] Future Scheduled Test 2022-09-06 COVID-19 VACCINE (#1) [facility] 12:35:03 [code = COVID-19 VACCINE (#1)] Future Scheduled Test 2022-09-[address] [facility] 12:35:03 [code = COLONOSCOPY SCREENING] Future Scheduled Test 2022-09-06 SHINGLES VACCINES (1 [facility] 12:35:03 of 2) [code = SHINGLES VACCINES (1 of 2)] Future Scheduled Test 2022-09-06 65+ PNEUMOCOCCAL [facility] 12:35:03 VACCINE (1 - PCV) [code = 65+ PNEUMOCOCCAL VACCINE (1 - PCV)] Future Scheduled Test 2022-09-06 INFLUENZA VACCINE [facility] 12:35:03 [code = INFLUENZA VACCINE] Future Scheduled Test 2022-07-[address] [facility] 14:44:45 (1 of 3 - 3-dose series) [code = HEPATITIS B VACCINES (1 of 3 - 3-dose series)] Future Scheduled Test 2022-07-26 COVID-19 VACCINE (#1) [facility] 14:44:45 [code = COVID-19 VACCINE (#1)] Future Scheduled Test 2022-07-[address] [facility] 14:44:45 [code = COLONOSCOPY SCREENING] Future Scheduled Test 2022-07-26 SHINGLES VACCINES (1 [facility] 14:44:45 of 2) [code = SHINGLES VACCINES (1 of 2)] Future Scheduled Test 2022-07-26 65+ PNEUMOCOCCAL [facility] 14:44:45 VACCINE (1 - PCV) [code = 65+ PNEUMOCOCCAL VACCINE (1 - PCV)] Future Scheduled Test 2022-07-26 INFLUENZA VACCINE [facility] 14:44:45 [code = INFLUENZA VACCINE] Future Scheduled Test 2022-06-[address] [facility] 16:05:36 (1 of 3 - 3-dose series) [code = HEPATITIS B VACCINES (1 of 3 - 3-dose series)] Future Scheduled Test 2022-06-21 COVID-19 VACCINE (#1) [facility] 16:05:36 [code = COVID-19 VACCINE (#1)] Future Scheduled Test 2022-06-[address] [facility] 16:05:36 [code = COLONOSCOPY SCREENING] Future Scheduled Test 2022-06-21 SHINGLES VACCINES (1 [facility] 16:05:36 of 2) [code = SHINGLES VACCINES (1 of 2)] Future Scheduled Test 2022-06-21 65+ PNEUMOCOCCAL [facility] 16:05:36 VACCINE (1 - PCV) [code = 65+ PNEUMOCOCCAL VACCINE (1 - PCV)] Future Scheduled Test 2022-06-21 INFLUENZA VACCINE [facility] 16:05:36 [code = INFLUENZA VACCINE] Future Scheduled Test 2022-05-[address] [facility] 12:32:35 (1 of 3 - 3-dose series) [code = HEPATITIS B VACCINES (1 of 3 - 3-dose series)] Future Scheduled Test 2022-05-23 COVID-19 VACCINE (#1) [facility] 12:32:35 [code = COVID-19 VACCINE (#1)] Future Scheduled Test 2022-05-[address] [facility] 12:32:35 [code = COLONOSCOPY SCREENING] Future Scheduled Test 2022-05-23 SHINGLES VACCINES (1 [facility] 12:32:35 of 2) [code = SHINGLES VACCINES (1 of 2)] Future Scheduled Test 2022-05-23 65+ PNEUMOCOCCAL [facility] 12:32:35 VACCINE (1 - PCV) [code = 65+ PNEUMOCOCCAL VACCINE (1 - PCV)] Future Scheduled Test 2022-05-23 INFLUENZA VACCINE [facility] 12:32:35 [code = INFLUENZA VACCINE] Instructions [facility] Practice Encounters Start End Encounter Admission Attending Care Care Encounter Source Date/Time Date/Time Type Type Clinicians Facility Department ID 2020-12-21 Inpatient [id number] [facility] 09:27:20 Zara 27 [facility] 2022-07-31 2022-07-31 Outpatient TOMI Roth DAYS [id number] [facility] 05:26:00 05:26:00 Tamer 51 [facility] 2022-06-21 2022-06-26 Inpatient EM Yasmine [facility]01 [id number] [facility] 19:57:00 08:11:00 Jae Worthington 53 [facility] 2022-06-20 2022-06-20 Emergency EM Jae, [facility] JOSEPH [id number] [facility] 16:45:00 18:11:00 Mehran 11 [facility] 2022-03-13 2022-03-13 Outpatient MARYANN Nicole MRAD [id number] [facility] 11:12:00 11:12:00 Rose 62 [facility] 2021-12-06 2021-12-06 Outpatient Ike_C VFP VFP [id number] -[id number] [facility] 04:56:00 04:56:00 [id number] Family Practic e 2021-12-06 2021-12-06 Outpatient Ike_C VFP VFP [id number] -[id number] [facility] 04:56:00 04:56:00 [id number] Family Practic e 2021-12-06 2021-12-06 Outpatient Ike_C VFP VFP [id number] -[id number] [facility] 00:00:00 00:00:00 [id number] Family Practic e 2021-12-06 2021-12-06 Outpatient Ike_C VFP VFP [id number] -[id number] [facility] 00:00:00 00:00:00 [id number] Family Practic e 2021-11-02 2021-11-02 Outpatient Ike_C VFP VFP [id number] -[id number] [facility] 03:43:00 03:43:00 [id number] Family Practic e 2021-09-27 2021-09-27 Outpatient Ike_C VFP VFP [id number] -20 [facility] 02:48:00 02:48:00 [id number] Family Practic e 2021-09-09 2021-09-09 Outpatient Ike_C VFP VFP [id number] -[id number] [facility] 02:14:00 02:14:00 [id number] Family Practic e 2021-08-13 2021-08-13 Outpatient Ike_C VFP VFP [id number] -20 [facility] 11:00:00 11:00:00 [id number] Family Practic e 2021-08-13 2021-08-13 Marie VFP [place] - [id number] V illage 00:00:00 00:00:00 [facility] Famil y Jesus, MEDICINE ASSISTANT: [place] [id number] VM_HOU_[facility] [place] ([facility]) [facility], [place] [address] , Ph. 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 BASIC METABOLIC [id number] 11:19:00 Test Item Value Reference Range Interpretation Comments SODIUM (test code = NA) 142 mEq/L 134-147 N POTASSIUM (test code = 3.3 mEq/L 3.4-5.0 L K) CHLORIDE (test code = 105 mEq/L 100-108 N CL) CARBON DIOXIDE (test 25 mEq/l 21-33 N code = CO2) ANION GAP (test code = 15 0-20 N GAP) GLUCOSE (test code = 141 mg/dL 70-110 H GLU) BLOOD UREA NITROGEN 18 mg/dL 7-18 N (test code = BUN) GLOMERULAR FILTRATION 66.6 80-90 L Units of measure = RATE (test code = GFR) ml/mi n/1.73 m2 CREATININE (test code = 1.1 mg/dL 0.6-1.3 N CREAT) CALCIUM (test code = 9.4 mg/dL 8.0-10.5 N CA) GLUCOSE [id number] 22:09:00 Test Item Value Reference Range Interpretation Comments GLUCOSE BEDSIDE (test 183 MG/DL 70-110 H Perfor med by certified code = GLUBED) 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 GLUCOSE [id number] 16:20:00 Test Item Value Reference Range Interpretation Comments GLUCOSE BEDSIDE (test 271 MG/DL 70-110 H Perfor med by certified code = GLUBED) 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 GLUCOSE [id number] 12:08:00 Test Item Value Reference Range Interpretation Comments GLUCOSE BEDSIDE (test 246 MG/DL 70-110 H Perfor med by certified code = GLUBED) 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 CBC W/AUTO [id number] 08:14:00 Test Item Value Reference Range Interpretation Comments WHITE BLOOD CELL (test code = 7.4 x10 3/uL 4.5-11.0 N WBC) RED BLOOD CELL (test code = 4.35 x10 6/uL 4.00-5.60 N RBC) HEMOGLOBIN (test code = HGB) 12.4 g/dL 12.5-16.9 L HEMATOCRIT (test code = HCT) 37.2 % 37.5-50.7 L MEAN CELL VOLUME (test code = 85.5 fL 81.0-99.0 MCV) MEAN CELL HGB (test code = MCH) 28.5 pg 27.0-33.0 N MEAN CELL HGB CONCETRATION 33.3 g/dL 33.0-37.0 N (test code = MCHC) RED CELL DISTRIBUTION WIDTH CV 15.0 % 11.5-14.5 H (test code = RDW) RED CELL DISTRIBUTION WIDTH SD 47.5 fL 37.0-54.0 N (test code = RDW-SD) PLATELET COUNT (test code = 262 x10 3/uL 150-400 N PLT) MEAN PLATELET VOLUME (test code 10.4 fL 7.0-9.0 H = MPV) NEUTROPHIL % (test code = NT%) 74.6 % 56.0-77.0 N IMMATURE GRANULOCYTE % (test 2.0 % 0.0-2.0 N code = IG%) LYMPHOCYTE % (test code = LY%) 15.5 % 14.0-32.0 N MONOCYTE % (test code = MO%) 7.7 % 4.8-9.0 N EOSINOPHIL % (test code = EO%) 0.1 % 0.3-3.7 L BASOPHIL % (test code = BA%) 0.1 % 0.0-2.0 N NUCLEATED RBC % (test code = 0.0 % 0-0 N NRBC%) NEUTROPHIL # (test code = NT#) 5.54 x10 3/uL 2.0-7.6 N IMMATURE GRANULOCYTE # (test 0.15 x10 3/uL 0.00-0.03 H code = IG#) LYMPHOCYTE # (test code = LY#) 1.15 x10 3/uL 1.0-3.8 N MONOCYTE # (test code = MO#) 0.57 x10 3/uL 0.1-0.8 N EOSINOPHIL # (test code = EO#) 0.01 x10 3/uL 0.0-0.2 N BASOPHIL # (test code = BA#) 0.01 x10 3/uL 0.0-0.2 N NUCLEATED RBC # (test code = 0.00 x10 3/uL 0.0-0.1 N NRBC#) MANUAL DIFF REQUIRED (test code NO = MDIFF) GLUCOSE [id number] 07:41:00 Test Item Value Reference Range Interpretation Comments GLUCOSE BEDSIDE (test 199 MG/DL 70-110 H Perfor med by certified code = GLUBED) 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 BASIC METABOLIC [id number] 07:25:00 Test Item Value Reference Range Interpretation Comments SODIUM (test code = NA) 137 mEq/L 134-147 N POTASSIUM (test code = 4.1 mEq/L 3.4-5.0 N K) CHLORIDE (test code = 108 mEq/L 100-108 N CL) CARBON DIOXIDE (test 20 mEq/l 21-33 L code = CO2) ANION GAP (test code = 13 0-20 N GAP) GLUCOSE (test code = 200 mg/dL 70-110 H GLU) BLOOD UREA NITROGEN 11 mg/dL 7-18 (test code = BUN) GLOMERULAR FILTRATION 83.9 80-90 N Units of measure = RATE (test code = GFR) ml/mi n/1.73 m2 CREATININE (test code = 0.9 mg/dL 0.6-1.3 N CREAT) CALCIUM (test code = 8.3 mg/dL 8.0-10.5 N CA) GLUCOSE [id number] 20:51:00 Test Item Value Reference Range Interpretation Comments GLUCOSE BEDSIDE (test 218 MG/DL 70-110 H Perfor med by certified code = GLUBED) 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 GLUCOSE [id number] 16:56:00 Test Item Value Reference Range Interpretation Comments GLUCOSE BEDSIDE (test 280 MG/DL 70-110 H Perfor med by certified code = GLUBED) 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 GLUCOSE [id number] 11:58:00 Test Item Value Reference Range Interpretation Comments GLUCOSE BEDSIDE (test 201 MG/DL 70-110 H Perfor med by certified code = GLUBED) 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 BASIC METABOLIC [id number] 07:52:00 Test Item Value Reference Range Interpretation Comments SODIUM (test code = 138 mEq/L 134-147 N NA) POTASSIUM (test code = 5.0 mEq/L 3.4-5.0 SPECI MEN SLIGHTLY K) HEMOLYZED.Resul ts known to be adv ersely affected by hem olysis are: Potassium Magnesium LDH Phosphorus CHLORIDE (test code = 113 mEq/L 100-108 H CL) CARBON DIOXIDE (test 15 mEq/l 21-33 L code = CO2) ANION GAP (test code = 15 0-20 N GAP) GLUCOSE (test code = 162 mg/dL 70-110 H GLU) BLOOD UREA NITROGEN 7 mg/dL 7-18 (test code = BUN) GLOMERULAR FILTRATION 83.9 80-90 N Units of measure = RATE (test code = GFR) ml/mi n/1.73 m2 CREATININE (test code 0.9 mg/dL 0.6-1.3 N = CREAT) CALCIUM (test code = 8.9 mg/dL 8.0-10.5 N CA) GLUCOSE [id number] 07:35:00 Test Item Value Reference Range Interpretation Comments GLUCOSE BEDSIDE (test 189 MG/DL 70-110 H Perfor med by certified code = GLUBED) 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 [facility] CBC W/AUTO [id number] 07:10:00 Test Item Value Reference Range Interpretation Comments WHITE BLOOD CELL (test code = 9.2 x10 3/uL 4.5-11.0 N WBC) RED BLOOD CELL (test code = 4.55 x10 6/uL 4.00-5.60 N RBC) HEMOGLOBIN (test code = HGB) 12.9 g/dL 12.5-16.9 N HEMATOCRIT (test code = HCT) 41.0 % 37.5-50.7 N MEAN CELL VOLUME (test code = 90.1 fL 81.0-99.0 N MCV) MEAN CELL HGB (test code = MCH) 28.4 pg 27.0-33.0 N MEAN CELL HGB CONCETRATION 31.5 g/dL 33.0-37.0 L (test code = MCHC) RED CELL DISTRIBUTION WIDTH CV 15.8 % 11.5-14.5 H (test code = RDW) RED CELL DISTRIBUTION WIDTH SD 52.8 fL 37.0-54.0 N (test code = RDW-SD) PLATELET COUNT (test code = 258 x10 3/uL 150-400 N PLT) MEAN PLATELET VOLUME (test code 10.9 fL 7.0-9.0 H = MPV) NEUTROPHIL % (test code = NT%) 84.0 % 56.0-77.0 H IMMATURE GRANULOCYTE % (test 0.5 % 0.0-2.0 N code = IG%) LYMPHOCYTE % (test code = LY%) 11.2 % 14.0-32.0 L MONOCYTE % (test code = MO%) 4.1 % 4.8-9.0 L EOSINOPHIL % (test code = EO%) 0.1 % 0.3-3.7 L BASOPHIL % (test code = BA%) 0.1 % 0.0-2.0 N NUCLEATED RBC % (test code = 0.0 % 0-0 N NRBC%) NEUTROPHIL # (test code = NT#) 7.69 x10 3/uL 2.0-7.6 H IMMATURE GRANULOCYTE # (test 0.05 x10 3/uL 0.00-0.03 H code = IG#) LYMPHOCYTE # (test code = LY#) 1.03 x10 3/uL 1.0-3.8 N MONOCYTE # (test code = MO#) 0.38 x10 3/uL 0.1-0.8 N EOSINOPHIL # (test code = EO#) 0.01 x10 3/uL 0.0-0.2 N BASOPHIL # (test code = BA#) 0.01 x10 3/uL 0.0-0.2 N NUCLEATED RBC # (test code = 0.00 x10 3/uL 0.0-0.1 N NRBC#) MANUAL DIFF REQUIRED (test code NO = MDIFF) GLUCOSE [id number] 20:23:00 Test Item Value Reference Range Interpretation Comments GLUCOSE BEDSIDE (test 236 MG/DL 70-110 H Perfor med by certified code = GLUBED) 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 GLUCOSE [id number] 17:31:00 Test Item Value Reference Range Interpretation Comments GLUCOSE BEDSIDE (test 188 MG/DL 70-110 H Perfor med by certified code = GLUBED) 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 GLUCOSE [id number] 12:02:00 Test Item Value Reference Range Interpretation Comments GLUCOSE BEDSIDE (test 253 MG/DL 70-110 H Perfor med by certified code = GLUBED) 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 [facility] GLUCOSE [id number] 08:13:00 Test Item Value Reference Range Interpretation Comments GLUCOSE BEDSIDE (test 177 MG/DL 70-110 H Perfor med by certified code = GLUBED) 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 [facility] BASIC METABOLIC [id number] 04:53:00 Test Item Value Reference Range Interpretation Comments SODIUM (test code = NA) 141 mEq/L 134-147 N POTASSIUM (test code = 3.7 mEq/L 3.4-5.0 N K) CHLORIDE (test code = 108 mEq/L 100-108 N CL) CARBON DIOXIDE (test 23 mEq/l 21-33 N code = CO2) ANION GAP (test code = 13 0-20 N GAP) GLUCOSE (test code = 174 mg/dL 70-110 H GLU) BLOOD UREA NITROGEN 12 mg/dL 7-18 N (test code = BUN) GLOMERULAR FILTRATION 83.9 80-90 N Units of measure = RATE (test code = GFR) ml/mi n/1.73 m2 CREATININE (test code = 0.9 mg/dL 0.6-1.3 N CREAT) CALCIUM (test code = 8.5 mg/dL 8.0-10.5 N CA) [id number] 04:53:00 Test Item Value Reference Range Interpretation Comments PHOSPHOROUS (test code = PHOS) 2.4 MG/DL 2.5-4.9 L [id number] 04:53:00 Test Item Value Reference Range Interpretation Comments MAGNESIUM (test code = MAG) 1.98 mg/dL 1.80-2.40 N CBC W/AUTO [id number] 04:46:00 Test Item Value Reference Range Interpretation Comments WHITE BLOOD CELL (test code = 10.6 x10 3/uL 4.5-11.0 N WBC) RED BLOOD CELL (test code = 4.08 x10 6/uL 4.00-5.60 N RBC) HEMOGLOBIN (test code = HGB) 11.3 g/dL 12.5-16.9 L HEMATOCRIT (test code = HCT) 35.9 % 37.5-50.7 L MEAN CELL VOLUME (test code = 88.0 fL 81.0-99.0 N MCV) MEAN CELL HGB (test code = MCH) 27.7 pg 27.0-33.0 N MEAN CELL HGB CONCETRATION 31.5 g/dL 33.0-37.0 L (test code = MCHC) RED CELL DISTRIBUTION WIDTH CV 15.7 % 11.5-14.5 H (test code = RDW) RED CELL DISTRIBUTION WIDTH SD 50.8 fL 37.0-54.0 N (test code = RDW-SD) PLATELET COUNT (test code = 230 x10 3/uL 150-400 N PLT) MEAN PLATELET VOLUME (test code 10.6 fL 7.0-9.0 H = MPV) NEUTROPHIL % (test code = NT%) 86.4 % 56.0-77.0 H IMMATURE GRANULOCYTE % (test 0.5 % 0.0-2.0 N code = IG%) LYMPHOCYTE % (test code = LY%) 8.4 % 14.0-32.0 L MONOCYTE % (test code = MO%) 4.5 % 4.8-9.0 L EOSINOPHIL % (test code = EO%) 0.1 % 0.3-3.7 L BASOPHIL % (test code = BA%) 0.1 % 0.0-2.0 N NUCLEATED RBC % (test code = 0.0 % 0-0 N NRBC%) NEUTROPHIL # (test code = NT#) 9.15 x10 3/uL 2.0-7.6 H IMMATURE GRANULOCYTE # (test 0.05 x10 3/uL 0.00-0.03 H code = IG#) LYMPHOCYTE # (test code = LY#) 0.89 x10 3/uL 1.0-3.8 L MONOCYTE # (test code = MO#) 0.48 x10 3/uL 0.1-0.8 N EOSINOPHIL # (test code = EO#) 0.01 x10 3/uL 0.0-0.2 N BASOPHIL # (test code = BA#) 0.01 x10 3/uL 0.0-0.2 N NUCLEATED RBC # (test code = 0.00 x10 3/uL 0.0-0.1 N NRBC#) MANUAL DIFF REQUIRED (test code NO = MDIFF) GLUCOSE [id number] 19:59:00 Test Item Value Reference Range Interpretation Comments GLUCOSE BEDSIDE (test 254 MG/DL 70-110 H Perfor med by certified code = GLUBED) 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 [facility] BASIC METABOLIC [id number] 08:20:00 Test Item Value Reference Range Interpretation Comments SODIUM (test code = NA) 144 mEq/L 134-147 N POTASSIUM (test code = 3.9 mEq/L 3.4-5.0 K) CHLORIDE (test code = 107 mEq/L 100-108 N CL) CARBON DIOXIDE (test 24 mEq/l 21-33 N code = CO2) ANION GAP (test code = 17 0-20 N GAP) GLUCOSE (test code = 160 mg/dL 70-110 H GLU) BLOOD UREA NITROGEN 12 mg/dL 7-18 N (test code = BUN) GLOMERULAR FILTRATION 66.6 80-90 L Units of measure = RATE (test code = GFR) ml/mi n/1.73 m2 CREATININE (test code = 1.1 mg/dL 0.6-1.3 N CREAT) CALCIUM (test code = 9.6 mg/dL 8.0-10.5 N CA) [id number] 08:20:00 Test Item Value Reference Range Interpretation Comments MAGNESIUM (test code = MAG) 2.03 mg/dL 1.80-2.40 N TSH REFLEX TO [id number] 08:20:00 Test Item Value Reference Range Interpretation Comments TSH REFLEX TO FT4 (test code = 1.06 IU/mL 0.42-5.47 N TSHREFLEX) GLUCOSE [id number] 08:02:00 Test Item Value Reference Range Interpretation Comments GLUCOSE BEDSIDE (test 156 MG/DL 70-110 H Perfor med by certified code = GLUBED) 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 [facility] [id number] 07:16:00 Test Item Value Reference Range Interpretation Comments HGBA1C% (test code = HGBA1C%) 7.0 %A1C 4.8-6.0 H CBC W/O [id number] 07:00:00 Test Item Value Reference Range Interpretation Comments WHITE BLOOD CELL (test code = 11.4 x10 3/uL 4.5-11.0 H WBC) RED BLOOD CELL (test code = 4.36 x10 6/uL 4.00-5.60 N RBC) HEMOGLOBIN (test code = HGB) 12.6 g/dL 12.5-16.9 N HEMATOCRIT (test code = HCT) 38.1 % 37.5-50.7 N MEAN CELL VOLUME (test code = 87.4 fL 81.0-99.0 N MCV) MEAN CELL HGB (test code = MCH) 28.9 pg 27.0-33.0 N MEAN CELL HGB CONCETRATION 33.1 g/dL 33.0-37.0 N (test code = MCHC) RED CELL DISTRIBUTION WIDTH CV 15.8 % 11.5-14.5 H (test code = RDW) RED CELL DISTRIBUTION WIDTH SD 50.0 fL 37.0-54.0 N (test code = RDW-SD) PLATELET COUNT (test code = 241 x10 3/uL 150-400 N PLT) MEAN PLATELET VOLUME (test code 10.4 fL 7.0-9.0 H = MPV) TROP-I HIGH [id number] 01:16:00 Test Item Value Reference Range Interpretation Comments TROP-I HIGH 6 ng/L 0-54 N CAUTION: Units of the SENSITIVITY (test current te st methodology code = TROPIHS) (ng/L) diffe rfrom the prior test methodolog y (ng/mL) by a factor of 1000. 99th Percentile Upper Reference Limit (URL): Females: 34 ng/LMales: 54 n g/L In order to distinguish acute elevations of h igh sensitivitytrop onin from other clinical conditions, the FourthUnive rsal Definition of M yocardial Infarction stre ssesclinical assessment and the demonstration o f a rise and/orfall in s erial troponin result s above the URL. These resu lts were obtained using Siemens Atellica IM TnI Hreagent. Results from di fferent methodologies s hould not becompared to o ne another as quantitative results and URLs mayvary by method. HGB [id number] 00:59:00 Test Item Value Reference Range Interpretation Comments HEMOGLOBIN (test code = HGB) 12.1 g/dL 12.5-16.9 L HEMATOCRIT (test code = HCT) 37.0 % 37.5-50.7 L TROP-I HIGH [id number] 21:44:00 Test Item Value Reference Range Interpretation Comments TROP-I HIGH 6 ng/L 0-54 N CAUTION: Units of the SENSITIVITY (test current te st methodology code = TROPIHS) (ng/L) diffe rfrom the prior test methodolog y (ng/mL) by a factor of 1000. 99th Percentile Upper Reference Limit (URL): Females: 34 ng/LMales: 54 n g/L In order to distinguish acute elevations of h igh sensitivitytrop onin from other clinical conditions, the FourthUnive rsal Definition of M yocardial Infarction stre ssesclinical assessment and the demonstration o f a rise and/orfall in s erial troponin result s above the URL. These resu lts were obtained using Siemens Atellica IM TnI Hreagent. Results from di fferent methodologies s hould not becompared to o ne another as quantitative results and URLs mayvary by method. AG STREP GROUP A (THROAT)2022-06-21 18:12:00 Test Item Value Reference Range Interpretation Comments AG STREP GROUP A Negative Negative Negative fo r Strep A (THROAT) (test code = nuclei c acid STREPA) BASIC METABOLIC [id number] 18:06:00 Test Item Value Reference Range Interpretation Comments SODIUM (test code = NA) 140 mEq/L 134-147 N POTASSIUM (test code = 3.1 mEq/L 3.4-5.0 L K) CHLORIDE (test code = 102 mEq/L 100-108 N CL) CARBON DIOXIDE (test 26 mEq/l 21-33 N code = CO2) ANION GAP (test code = 15 0-20 N GAP) GLUCOSE (test code = 135 mg/dL 70-110 H GLU) BLOOD UREA NITROGEN 14 mg/dL 7-18 N (test code = BUN) GLOMERULAR FILTRATION 60.2 80-90 L Units of measure = RATE (test code = GFR) ml/mi n/1.73 m2 CREATININE (test code = 1.2 mg/dL 0.6-1.3 N CREAT) CALCIUM (test code = 9.7 mg/dL 8.0-10.5 N CA) GLUCOSE [id number] 17:59:00 Test Item Value Reference Range Interpretation Comments GLUCOSE BEDSIDE (test 127 MG/DL 70-110 H [facility] med by certified code = GLUBED) 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 [facility] CBC W/AUTO [id number] 17:50:00 Test Item Value Reference Range Interpretation Comments WHITE BLOOD CELL (test code = 12.2 x10 3/uL 4.5-11.0 H WBC) RED BLOOD CELL (test code = 4.65 x10 6/uL 4.00-5.60 N RBC) HEMOGLOBIN (test code = HGB) 13.2 g/dL 12.5-16.9 N HEMATOCRIT (test code = HCT) 40.6 % 37.5-50.7 N MEAN CELL VOLUME (test code = 87.3 fL 81.0-99.0 N MCV) MEAN CELL HGB (test code = MCH) 28.4 pg 27.0-33.0 N MEAN CELL HGB CONCETRATION 32.5 g/dL 33.0-37.0 L (test code = MCHC) RED CELL DISTRIBUTION WIDTH CV 16.1 % 11.5-14.5 H (test code = RDW) RED CELL DISTRIBUTION WIDTH SD 50.4 fL 37.0-54.0 N (test code = RDW-SD) PLATELET COUNT (test code = 243 x10 3/uL 150-400 N PLT) MEAN PLATELET VOLUME (test code 10.7 fL 7.0-9.0 H = MPV) NEUTROPHIL % (test code = NT%) 80.9 % 56.0-77.0 H IMMATURE GRANULOCYTE % (test 0.5 % 0.0-2.0 N code = IG%) LYMPHOCYTE % (test code = LY%) 10.6 % 14.0-32.0 L MONOCYTE % (test code = MO%) 7.6 % 4.8-9.0 N EOSINOPHIL % (test code = EO%) 0.1 % 0.3-3.7 L BASOPHIL % (test code = BA%) 0.3 % 0.0-2.0 N NUCLEATED RBC % (test code = 0.0 % 0-0 N NRBC%) NEUTROPHIL # (test code = NT#) 9.90 x10 3/uL 2.0-7.6 H IMMATURE GRANULOCYTE # (test 0.06 x10 3/uL 0.00-0.03 H code = IG#) LYMPHOCYTE # (test code = LY#) 1.30 x10 3/uL 1.0-3.8 N MONOCYTE # (test code = MO#) 0.93 x10 3/uL 0.1-0.8 H EOSINOPHIL # (test code = EO#) 0.01 x10 3/uL 0.0-0.2 N BASOPHIL # (test code = BA#) 0.04 x10 3/uL 0.0-0.2 N NUCLEATED RBC # (test code = 0.00 x10 3/uL 0.0-0.1 N NRBC#) MANUAL DIFF REQUIRED (test code NO = MDIFF) - CT MAXIFAC [id number] 00:00:[facility] 1955 Sex: M Name: SONYA MINAYA [facility] : 1955 Age/S: 66 / M [address] [place] [address] Unit #: [id number] Loc: [place] [address] Phys: Murphy Michelle MEDICINE ASSISTANT Acct: [id number] Dis Date: Status: REG ER PHONE #: [phone] Exam Date: 06/21/2022 [facility] FAX #: [phone] Reason: SWELLING, DYSPHAGIA EXAMS:CPT CODE: [id number] CT MAXIFAC W/CONTRAST 87617 PROCEDURE INFORMATION: Exam: CT Maxillofacial With Contrast Exam date and time: 06/21/2022 6:54 PM Age: 66 years old Clinical indication: Other: Swelling,dysphagia TECHNIQUE: Imaging protocol: Computed tomography of the face with contrast. Radiation optimization: All CT scans at this facility use at least one of these dose optimization techniques: automated exposure control; mA and/or kV adjustment per patient size (includes targeted exams where dose is matched to clinical indication); or iterative reconstruction. Contrast material: ISO 300; Contrast volume: 100 ml; Contrast route: INTRAVENOUS (IV); COMPARISON: No relevant prior studies available. FIN DINGS: Orbital cavities: Orbits are normal. Globes are unremarkable. Bones/joints: Degenerative changes of the cervical spine. Paranasal sinuses: Normal. No air-fluid levels. Lymph nodes: Enlarged jugular chain lymph nodes measuring up to 1.5 cm. Soft tissues: Unremarkable. Pharynx: Asymmetric enlargem ent of the right palatine tonsil, with a right peritonsillar collection measuring 1.5 x 0.9 x 1.0 cm. There is moderate edema of the right lateral pharyngeal wall as well as the right true vocal fold. IMPRESSION: 1. Asymmetric enlargement of the right palatine tonsil, with a right peritonsillar fluid c ollection measuring 1.5 x 0.9 x 1.0 cm. Moderate edema of the right lateral pharyngeal wall and truevocal folds are also noted. 2. In this age group, an underlying mass would be difficult to exclude and follow-up to resolution is recommended. ENT consultation may be helpful. 3. Mildly enlarged, likely reactive jugular chain lymph nodes. at 1925 Reported and signed by: Jony Kellogg M.D. PAGE 1 Signed Report (CONTINUED) Name: SONYA MINAYA [facility] : 1955 Age/S: 66 / M [address] [place] [address] Unit #: [id number] Loc: [place] [address] Phys: Murphy Michelle MEDICINE ASSISTANT Acct: [id number] Dis Date: Status: REG ER PHONE #: [phone] Exam Date: 06/21/2022 1857 FAX #: [phone] Reason: SWELLING, DYSPHAGIA EXAMS: CPT CODE: [id number] CT MAXIFAC W/CONTRAST 76091 (Continued) CC: Murphy Michelle MEDICINE ASSISTANT; Rose Davies Technologist:Carly Jimenez, RT(R)(CT) CTDI: DLP: Trnscb Date/Time: 06/21/2022 (1924) [email or web address] Orig Print D/T: S: 06/21/2022 (1924) PAGE 2 Signed Report- XR CHEST 2 [id number] 11:43:00 [facility] : 1955 Sex: M FAX: Rose Cornelius [phone] [place]: St: REG Name: SONYA MINAYA [facility] : 1955 Age/S: 66/M [address] [facility] Unit #: [id number] Loc: [place], [place] Phys: Rose Davies [address] Acct: [id number] Dis Date: Status: REG CLI PHONE #: [phone] Exam Date: 03/13/2022 1132 FAX #: [phone] Reason: PRODUCTIVE COUGH EXAMS: CPT CODE: [id number] XR CHEST 2 V 94714 EXAM: CHESTX-RAY INDICATION: PRODUCTIVE COUGH ADMITTING DIAGNOSIS: R05.8 LOCATION CODE: C3 COMPARISON: None TECHNIQUE: Two views of the chest DISCUSSION: Catheter and Tubes: none Lung: The lungs are clear. No pneumothorax or pleural effusion. Mediastinum: Multiple sternotomy wires are noted. Cardiac: Unremarkable Osseous structures are within normal limits. IMPRESSION: 1. No acute cardiopulmonary process. The above report was generated by using voice recognition. at 1143 Reported and signed by: Bran Montano M.D. CC: Rose garcia Technologist: UTE FARRIS Trniard Date/Time/By: 03/13/2022 (7433) : By: Marilee PAGE 1Signed Report FAX: Rose Cornelius [phone] [place]: St: REG Name: SONYA MINAYA [facility] : 1955 Age/S: 66/M [address] [facility] Unit #: [id number] Loc: [place] Phys: Rose Davies [address] Acct: [id number] Dis Date: Status: REG CLI PHONE #: [phone] Exam Date: 03/13/2022 1132 FAX #: [phone] Reason: PRODUCTIVE COUGH EXAMS: CPT CODE: [id number] XR CHEST 2V 16182 <Continued> Orig Print D/T: S: 03/13/2022 (5129) PAGE 2 Signed ReportSURGICAL PATH [id number] 08:12:00 Test Item Value Reference Range Interpretation Comments SURGICAL PATH SPECIMENS (test code = SURG) RUN DATE: 12/30/20 [place] - LAB PAGE 1 RUN TIME: 811 Specimen Inquiry RUN USER: INTERFACE PATIENT: SONYA MINAYA LOC: ERIC U #: [id number] AGE/SX: 65/M ROOM: [facility] RE12/22/20REG DR: Jae Jaffe MD : [birth year] BED: 1 DIS: 12/29/20 STATUS: DIS IN TLOC: SPEC #: [id number] RECD: 12/28/20 STATUS: TOSIN HORTON #: [id number] MUNA: 12/28/[address]: Jae Jaffe MD ENTERED: 12/29/20 SP TYPE: SURG SPEC OTHR DR: Ian Coronel MD,Paresh Banerjee,Ramin Blount MD, MD, Bahaeddin A MDORDERED: GROSS AND MICRO CODES: [id number] - PLEURAL FLUID COPIES TO: Ian Coronel MD [address] [place] [address] Paresh Hernadez MD [address] [facility] [place] [address] Jae Jaffe MD [address] [place] [address] [place] [address] Avel Banerjee MD [address] [facility] [address] [address] Ramin Sanchez MD [address] [place] [address] Zara Kumari MD [address] [place] [address] PROCEDURES: GROSS AND MICRO (Incomplete) CONTINUED ON NEXT PAGE RUN DATE: 12/30/20 [place] - LAB PAGE 2 RUN TIME: 811 Specimen Inquiry RUN USER: INTERFACE SPEC #: [id number] PATIENT: SONYA MINAYA #[id number] (Continued) TISSUES: 1. PLEURAL FLUID, NOS - Pleural fluid, left, cytology FINAL DIAGNOSIS Pleural fluid, left, cytology: No malignant cells identified. GROSS AND MICROSCOPIC GROSS DESCRIPTION: Received are 45 cc of dark red left pleural fluid, processed for cytospin and cell block, for cytologic evaluation. MICROSCOPIC EXAMINATION: A microscopic examination was performed to arrive at the diagnostic conclusion reported. 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 [facility] - DUP VEIN [id number] 14:40:00 [facility] : 1955 Sex: M Name: [facility] : 1955 Age/S: 65 / M [address] [place] [address] Blvd Unit #: [id number] Loc: [place] [address] Phys: Kevin Hinkle NP Acct: [id number] Dis Date: Status: ADM IN PHONE#: [phone] Exam Date: 12/29/2020 1346 FAX #: [phone] Reason: r/o dvt EXAMS: CPT CODE: [id number] DUP VEIN BUCK 93859 EXAM: 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 TECHNIQUE: Multiplanar grayscale, color Doppler and spectral Doppler ultrasound of the bilateral lower extremity veins. FINDINGS: Right lower extremity: Right saphenous vein thrombus is seen. The common femoral vein, femoral vein, pop liteal vein and visualized posterior tibial/calf veins are patent. There is no echogenic debris to suggest deep venous thrombosis. Left lower extremity: The common femoral vein, superficial femoral vein, popliteal vein and visualized posterior tibial/calf veins are patent. There is no echogenic debristo suggest deep venous thrombosis. IMPRESSION: No Deep Venous Thrombosis of the lower extremities. Right saphenous vein thrombus is seen. SL: [id number] at 1440 Reported and signed by: Kali Crews D.O. CC: Kevin Hinkle NP; Jae Worthington MD; Avel Banerjee MD; Zara Kumari MD Technologist: Ava Bah RDMS() Trnscb Date/Time: 12/29/2020 (1440) [email or web address] Orig Print D/T: S: 12/29/2020 (4113) Probe: PAGE 1 Signed Report- XR CHEST 1 [id number] 13:46:00 [facility] SONYA MINAY[facility] : 1955 Sex: M FAX: Kevin Hinkle NP [place]: St: ADM FAX: Jae Watkins I [phone] FAX: Avel Latham MD [phone] FAX: Zara Ruiz [phone] Name: SONYA MINAYA [facility] Lloyd Capellan : 1955 Age/S: 65/M [address] [place] [address] Unit #: [id number] Loc: G.[address] [place] [address] Phys: Kevin Hinkle NP Acct: [id number] Dis Date: Status: ADM IN PHONE #: [phone] Exam Date: 12/29/2020 0629 FAX #: [phone] Reason: Cardiac Surgery Post Op EXAMS: CPT CODE: [id number] XR CHEST 1 V 45801 EXAM: CHEST SINGLE VIEW HISTORY: 65-year-old male status post cardiac surgery COMPARISON: Chest radiograph 12/28/2020 FINDINGS: Stable left retrocardiac opacity. Stable mild residual prominence. The cardiomediastinal silhouette is stable. Osseous structures are unchanged. Sternotomy wires present. IMPRESSION: 1. Stable left retrocardiac opacity likely representing combination atelectasis, consolidation, and pleural fluid. 2. Mild interstitial prominence suggestive of congestion. SL: [id number] at 1346 Reported and signed by: Joce Sotomayor M.D. 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 [id number] 07:18:00 Test Item Value Reference Range Interpretation Comments GLUBED (test code = 169 MG/DL 70-110 H 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 [id number] 21:18:00 Test Item Value Reference Range Interpretation Comments GLUBED (test code = 127 MG/DL 70-110 H 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 [facility] [id number] 16:41:00 Test Item Value Reference Range Interpretation Comments GLUBED (test code = 159 MG/DL 70-110 H 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 [id number] 11:39:00 Test Item Value Reference Range Interpretation Comments GLUBED (test code = 212 MG/DL 70-110 H 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 [facility] - XR CHEST 1 [id number] 08:22:00 [facility] : 1955 Sex: M FAX: Kevin Hinkle NP [place]: St: [facility] FAX: Jae Watkins I [phone] FAX: Avel Latham MD [phone] FAX: Wilbert KumariSusypriti Moseley [phone] Name: SONYA MINAYA [facility] : 1955 Age/S: 65/M [address] [place] [address] Unit #: [id number] Loc: G.[address] [place] [address] Phys: Kevin Hinkle NP Acct: [id number] Dis Date: Status: ADM IN PHONE #: [phone] Exam Date: 12/28/202045 FAX #: [phone] Reason: Cardiac Surgery Post Op EXAMS: CPT CODE: [id number] XR CHEST 1 V 35238 Study: - XR CHEST 1V 12/28/2020 5:00 AM Patient Name: SONYA MINAYA MR: [id number] : 1955; Age: 65 years y/o Male Ordering Physician: Kevin Hinkle NP Clinical Indication: Cardiac Surgery Post Op Comparison: December 27, 2020 x-ray FINDINGS LUNGS: Left retrocardiac opacity, representing any combination of pleural effusion, atelectasis, or pneumonia. HEART AND MEDIASTINUM: Heart size at the upper limits of normal. Postoperative changes from CABG. LINES: None. OSSEOUS STRUCTURES: No fracture, dislocation, or suspicious focal osseous lesion. OTHER: None. IMPRESSION: Left retrocardiac opacity, representing any combination of pleural effusion, atelectasis, or pneumonia. SL: [id number] at 0822 Reported and signed by: Fco De La Cruz M.D. PAGE 1 Signed R eport (CONTINUED) FAX: Kevin Hinkle NP [place]: St: ADM FAX: Jae Watkins I [phone] FAX: Avel Latham MD [phone] FAX: Zara Ruiz [phone] Name: SONYA MINAYA [facility] : 1955 Age/S: 65/M [address] [place] [address] Unit #: [id number] Loc: G.[address] [place] [address] Phys: Kevin Hinkle NP Acct: [id number] Dis Date: Status: ADM IN PHONE #: [phone] Exam Date: 12/28/2020544 FAX #: [phone] Reason: Cardiac Surgery Post Op EXAMS: CPT CODE: [id number] XR CHEST 1 V 48932 (Continued) CC: Kevin Hinkle NP; Jae Worthington MD; Avel Banerjee MD; Zara Kumari MD Technologist: Arvind Alonzo, RT(R); Emma Patterson RT(R) Trniard Date/Time/By: 12/28/2020 (821) : By: [email or web address] Orig Print D/T: S: 12/28/2020 (824) PAGE 2 Signed ReportGLUBED 2020-12-28 08:13:00 Test Item Value Reference Range Interpretation Comments GLUBED (test code = 158 MG/DL 70-110 H 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 1955 Sex: M Name: SONYA MINAYA [facility] : 1955 Age/S: 65 / M [address] [place] [place] [address] Unit #: [id number] Loc: [place] [address] Phys: Kevin Hinkle NP Acct: [id number] Dis Date: Status: ADM IN PHONE #: [phone] Exam Date: 12/27/2020 1445 FAX #: [phone] Reason: pl effusion left EXAMS: CPT CODE: [id number] US THORACENTESIS W/IMAG 35285 PROCEDURE: Ultrasound-guided left thoracentesis. INDICATION: Left pleural effusion. COMPARISON: None. TECHNIQUE: The procedure, risks, benefits and alternatives were discussed. Informed consent was obtained. Timeout was performed prior to the procedure. The technical component of this study was performed by directly supervised physician medical staff assistant. The technical report is available in the electronic medical record. Performed by: JUSTINO Lamb Supervised and Electronically signed by: Kali Crews DO Findings: Total volume of 300 cc of blood-tingedpleural fluid was removed. IMPRESSION: 1. Technically successful ultrasound-guided thoracentesis. at 1516 Reported and signed by: Kali Crews D.O. CC: Kevin Hinkle NP; Jae Worthington MD; Avel Banerjee MD; Zara Kumari MD Technologist: Anna Bah [facility] Date/Time: 12/27/2020 (1515) [email or web address] Orig Print D/T: S: 12/27/2020 (1520) Probe: PAGE 1 Signed Report- XR CHEST 1 V 2020-12-27 15:04:00 [facility] 1955 Sex: M FAX: Paul Henriquez PA-C [phone] [place]: St: ADM FAX: Jae Watkins I [phone] FAX: Avel [place] MD [phone] FAX: Zara Ruiz [phone] Name: SONYA MINAYA [facility] : 1955 Age/S: 65/M [address] [place] [address] Unit #: [id number] Loc: G.[address] [place] [address] Phys: Paul Henriquez PA-C Acct: [id number] Dis Date: Status: ADM IN PHONE #: [phone] Exam Date: 12/27/2020 1455FAX #: [phone] Reason: POST LEFT THORACENTESIS DONE BY IR EXAMS: CPT CODE: [id number] XR CHEST 1 V 55393 EXAM: XR CHEST 1 VIEW DATE: 12/27/2020 2:45 PM : 1955; Age: 65 years y/o Male INDICATION: POST LEFT THORACENTESIS DONE BY IR COMPARISON: Radiograph from same day TECHNIQUE: AP chest. IMPRESSION: Lines, tubes and hardware: Prior sternotomy changes. Heart, mediastinum and lungs: Heart and hilar vasculature is stable. Right lung remains clear. Improvement in layering left effusion with underlying airspace disease. No left pneumothorax is seen. SL: [id number] at 1504 Reported and signed by: Kali Crews D.O. 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 [facility] - XR CHEST 1 [id number] 08:24:00 [facility] : 1955 Sex: M FAX: Kevin Hinkle NP [place]: St: ADM FAX: Jae Watkins I [phone] FAX: Avel [place] MD [phone] FAX: Zara Ruiz [phone] Name: SONYA MINAYA [facility] Lloyd Capellan : 1955 Age/S: 65/M [address] [place] [address] Unit #: [id number] Loc: G.[address] [place] [address] Phys: Kevin Hinkle NP Acct: [id number] Dis Date: Status: ADM IN PHONE #: [phone] Exam Date: 12/27/2020539 FAX #: [phone] Reason: Cardiac Surgery Post Op EXAMS: CPT CODE: [id number] XR CHEST 1 V 75282 EXAM: XR CHEST 1 VIEW DATE: 12/27/2020 5:00 AM : 1955; Age: 65 years y/o Male INDICATION: Cardiac Surgery Post Op COMPARISON: Radiograph from prior day TECHNIQUE: AP chest. IMPRESSION: Lines, tubes and hardware: Prior sternotomy changes. Heart, mediastinum and lungs: Heart and hilar vasculature is stable. Right lung remains clear. Unchanged moderate layering left effusion with underlying airspace disease. SL: [facility] [id number] at 0824 Reported andsigned by: Kali Crews D.O. 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 [id number] 16:55:00 Test Item Value Reference Range Interpretation Comments GLUBED (test code = 278 MG/DL 70-110 H 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 [id number] 16:55:00 Test Item Value Reference Range Interpretation Comments GLUBED (test code = 307 MG/DL 70-110 H 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 [id number] 11:46:00 Test Item Value Reference Range Interpretation Comments GLUBED (test code = 192 MG/DL 70-110 H 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 - XR CHEST 1 [id number] 09:54:00 [facility] : 1955 Sex: M FAX: Kevin Hinkle NP [place]: St: ADM FAX: Jae Watkins I [phone] FAX: Avel [place] MD [phone] FAX: Zara Ruiz [phone] Name: SONYA MINAYA [facility] : 1955 Age/S: 65/M [address] [place] [address] Unit #: [id number] Loc: G.[address] [place] [address] Phys: Kevin Hinkle NP Acct: [id number] Dis Date: Status: ADM IN PHONE #: [phone] Exam Date: 12/26/2020 0704 FAX #: [phone] Reason: Cardiac Surgery Post Op EXAMS: CPT CODE: [id number] XR CHEST 1 V 69654 Chest single view 12/26/2020 HISTORY: Postoperative cardiac surgery Comparison is made to 12/25/2020 FINDINGS: Cardiomegalyis stable. Aorta is unchanged. Left pleural effusion and left base atelectasis/infiltrate are unchanged. No interstitial edema is present. Midline sternotomy wires are stable. IMPRESSION: Stable chest.SL: [id number] at 0954 Reported and signed by: All Maher M.D. 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 BASIC METABOLIC [id number] 07:53:00 Test Item Value Reference Range Interpretation Comments SODIUM (test code = NA) 138 mEq/L 134-147 N POTASSIUM (test code = 3.4 mEq/L 3.4-5.0 N K) CHLORIDE (test code = 103 mEq/L 100-108 N CL) CARBON DIOXIDE (test 24 mEq/l 21-33 N code = CO2) ANION GAP (test code = 14 0-20 N GAP) GLUCOSE (test code = 149 mg/dL 70-110 H GLU) BLOOD UREA NITROGEN 13 mg/dL 7-18 N (test code = BUN) GLOMERULAR FILTRATION 96.4 80-90 H Units of measure = RATE (test code = GFR) ml/mi n/1.73 m2 CREATININE (test code = 0.8 mg/dL 0.6-1.3 N CREAT) CALCIUM (test code = 8.6 mg/dL 8.0-10.5 N CA) COMMENTS: POD #1HEPATIC FUNCTION [id number] 07:53:00 Test Item Value Reference Range Interpretation Comments TOTAL PROTEIN (test code = PROT) 6.2 g/dL 6.4-8.2 L ALBUMIN (test code = ALB) 3.20 g/dL 3.4-5.0 L BILIRUBIN TOTAL (test code = BILT) 0.70 mg/dL 0.0-1.0 N BILIRUBIN DIRECT (test code = 0.30 MG/DL 0.0-0.30 N BILD) BILIRUBIN INDIRECT (test code = 0.40 MG/DL BILIND) SGOT/AST (test code = AST) 35 IUnit/L 15-37 N SGPT/ALT (test code = ALT) 17 IUnit/L 30-65 L ALKALINE PHOSPHATASE TOTAL (test 54 IUnit/L 20-125 N code = ALKP) COMMENTS: POD #[id number] 07:53:00 Test Item Value Reference Range Interpretation Comments MAGNESIUM (test code = MAG) 1.96 mg/dL 1.80-2.40 N COMMENTS: POD #1CBC W/AUTO [id number] 07:14:00 Test Item Value Reference Range Interpretation Comments WHITE BLOOD CELL (test code = 10.0 x10 3/uL 4.5-11.0 N WBC) RED BLOOD CELL (test code = 3.32 x10 6/uL 4.00-5.60 L RBC) HEMOGLOBIN (test code = HGB) 9.4 g/dL 12.5-16.9 L HEMATOCRIT (test code = HCT) 30.3 % 37.5-50.7 L MEAN CELL VOLUME (test code = 91.3 fL 81.0-99.0 N MCV) MEAN CELL HGB (test code = MCH) 28.3 pg 27.0-33.0 N MEAN CELL HGB CONCETRATION 31.0 g/dL 33.0-37.0 L (test code = MCHC) RED CELL DISTRIBUTION WIDTH CV 15.3 % 11.5-14.5 H (test code = RDW) RED CELL DISTRIBUTION WIDTH SD 51.1 fL 37.0-54.0 N (test code = RDW-SD) PLATELET COUNT (test code = 172 x10 3/uL 150-400 N PLT) MEAN PLATELET VOLUME (test code 11.2 fL 7.0-9.0 H = MPV) NEUTROPHIL % (test code = NT%) 77.0 % 56.0-77.0 N IMMATURE GRANULOCYTE % (test 0.8 % 0.0-2.0 N code = IG%) LYMPHOCYTE % (test code = LY%) 14.2 % 14.0-32.0 N MONOCYTE % (test code = MO%) 7.5 % 4.8-9.0 N EOSINOPHIL % (test code = EO%) 0.2 % 0.3-3.7 L BASOPHIL % (test code = BA%) 0.3 % 0.0-2.0 N NUCLEATED RBC % (test code = 0.0 % 0-0 N NRBC%) NEUTROPHIL # (test code = NT#) 7.73 x10 3/uL 2.0-7.6 H IMMATURE GRANULOCYTE # (test 0.08 x10 3/uL 0.00-0.03 H code = IG#) LYMPHOCYTE # (test code = LY#) 1.43 x10 3/uL 1.0-3.8 N MONOCYTE # (test code = MO#) 0.75 x10 3/uL 0.1-0.8 N EOSINOPHIL # (test code = EO#) 0.02 x10 3/uL 0.0-0.2 N BASOPHIL # (test code = BA#) 0.03 x10 3/uL 0.0-0.2 N NUCLEATED RBC # (test code = 0.00 x10 3/uL 0.0-0.1 N NRBC#) MANUAL DIFF REQUIRED (test code NO = MDIFF) CBC W/AUTO [id number] 07:02:00 Test Item Value Reference Range Interpretation Comments WHITE BLOOD CELL (test code = x10 3/uL 4.5-11.0 WBC) RED BLOOD CELL (test code = RBC) x10 6/uL 4.00-5.60 HEMOGLOBIN (test code = HGB) g/dL 12.5-16.9 HEMATOCRIT (test code = HCT) % 37.5-50.7 MEAN CELL VOLUME (test code = fL 81.0-99.0 MCV) MEAN CELL HGB (test code = MCH) pg 27.0-33.0 MEAN CELL HGB CONCETRATION (test g/dL 33.0-37.0 code = MCHC) RED CELL DISTRIBUTION WIDTH CV % 11.5-14.5 (test code = RDW) PLATELET COUNT (test code = PLT) 172 x10 3/uL 150-400 N NEUTROPHIL % (test code = NT%) % 56.0-77.0 LYMPHOCYTE % (test code = LY%) % 14.0-32.0 NEUTROPHIL # (test code = NT#) x10 3/uL 2.0-7.6 LYMPHOCYTE # (test code = LY#) x10 3/uL 1.0-3.8 MANUAL DIFF REQUIRED (test code = MDIFF) [id number] 20:36:00 Test Item Value Reference Range Interpretation Comments GLUBED (test code = 153 MG/DL 70-110 H 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 [id number] 19:10:00 Test Item Value Reference Range Interpretation Comments GLUBED (test code = 207 MG/DL 70-110 H 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 1955 Sex: M FAX: Kevin Hinkle NP [place]: St: ADM FAX: Jae Watkins I [phone] FAX: Avel [place] MD [phone] FAX: Zara Ruiz [phone] Name: MARIMARSONYA [facility] : 1955 Age/S: 65/M [address] [place] [address] Unit #: [id number] Loc: G.[address] [place] [address] Phys: Kevin Hinkle NP Acct: [id number] Dis Date: Status: ADM IN PHONE #: [phone] Exam Date: 12/25/2020 0704 FAX #: [phone] Reason: Cardiac Surgery Post Op EXAMS: CPT CODE: [id number] XR CHEST 1 V [id number] Chest view 12/25/2020 HISTORY: Postoperative cardiac surgery Comparison is made to 12/24/2020 FINDINGS: Right jugular line has been removed. Cardiomegaly is stable. Aorta is unchanged. Midline sternotomy wires are stable. Left pleural effusion and left base atelectasis/infiltrate are unchanged. No focal opacity within the right lung is identified. IMPRESSION: 1. Removal of right jugular line. 2. Otherwise stable chest. SL:[id number] at 0807 Reported and signed by: All Maher M.D. CC: Kevin Hinkle NP; Jae Worthington MD; Avel Banerjee MD; Zara Kumari MD Technologist: Donna Burciaga, RT(R); Sally Jo, RT(R) Trniard Date/Time/By: 12/25/2020 (806) : By: [email or web address] Orig Print D/T: S: 12/25/2020 (0810) PAGE 1 [facility] [id number] 06:15:00 Test Item Value Reference Range Interpretation Comments ABG PATIENT RESP RATE (test code 20 /MIN = RRPATA) VIVEK'S TEST (test code = ALLENS) Positive POC VENOUS BLOOD GAS PH (test 7.530 7.33-7.45 H code = POCPHV) POC VENOUS BLOOD GAS PCO2 (test 26.0 mmHg 43-47 LL code = IWOXMS4F) POC VENOUS BLOOD GAS PO2 (test 59.7 mmHG 10-50 H code = DWXJE3U) POC TCO2 VENOUS (test code = 22.5 KPFXJD8G) POC HCO3 VENOUS (test code = 21.7 MMOL/L 22-27 L HVMEPV6E) POC BASE EXCESS VENOUS (test code -1.0 MMOL/L -4.0-4.0 N = POCBEV) POC O2 SATURATION VENOUS (test 93.7 % 60-80 H code = LWUF9TK) VENOUS BLOOD GAS FIO2 (test code 100 % = FIO2V) VENOUS BLOOD GAS DELIVERY (test NRBMASK code = DELV) VENOUS BLOOD GAS TEMP (test code 98.6 F = TEMPV) VENOUS BLOOD GAS SITE (test code R Radial = SITEV) BASIC METABOLIC [id number] 04:20:00 Test Item Value Reference Range Interpretation Comments SODIUM (test code = NA) 137 mEq/L 134-147 N POTASSIUM (test code = 3.8 mEq/L 3.4-5.0 N K) CHLORIDE (test code = 105 mEq/L 100-108 N CL) CARBON DIOXIDE (test 23 mEq/l 21-33 N code = CO2) ANION GAP (test code = 13 0-20 N GAP) GLUCOSE (test code = 183 mg/dL 70-110 H GLU) BLOOD UREA NITROGEN 11 mg/dL 7-18 (test code = BUN) GLOMERULAR FILTRATION 84.2 80-90 N Units of measure = RATE (test code = GFR) ml/mi n/1.73 m2 CREATININE (test code = 0.9 mg/dL 0.6-1.3 N CREAT) CALCIUM (test code = 8.6 mg/dL 8.0-10.5 N CA) COMMENTS: POD #1HEPATIC FUNCTION [id number] 04:20:00 Test Item Value Reference Range Interpretation Comments TOTAL PROTEIN (test code = PROT) 6.0 g/dL 6.4-8.2 L ALBUMIN (test code = ALB) 3.50 g/dL 3.4-5.0 N BILIRUBIN TOTAL (test code = BILT) 0.80 mg/dL 0.0-1.0 BILIRUBIN DIRECT (test code = 0.40 MG/DL 0.0-0.30 H BILD) BILIRUBIN INDIRECT (test code = 0.40 MG/DL BILIND) SGOT/AST (test code = AST) 64 IUnit/L 15-37 H SGPT/ALT (test code = ALT) 18 IUnit/L 30-65 L ALKALINE PHOSPHATASE TOTAL (test 42 IUnit/L 20-125 N code = ALKP) COMMENTS: POD #[id number] 04:20:00 Test Item Value Reference Range Interpretation Comments MAGNESIUM (test code = MAG) 2.17 mg/dL 1.80-2.40 N COMMENTS: POD #1CBC W/AUTO [id number] 04:08:00 Test Item Value Reference Range Interpretation Comments WHITE BLOOD CELL (test code = 10.8 x10 3/uL 4.5-11.0 N WBC) RED BLOOD CELL (test code = 3.42 x10 6/uL 4.00-5.60 L RBC) HEMOGLOBIN (test code = HGB) 9.7 g/dL 12.5-16.9 L HEMATOCRIT (test code = HCT) 30.6 % 37.5-50.7 L MEAN CELL VOLUME (test code = 89.5 fL 81.0-99.0 N MCV) MEAN CELL HGB (test code = MCH) 28.4 pg 27.0-33.0 N MEAN CELL HGB CONCETRATION 31.7 g/dL 33.0-37.0 L (test code = MCHC) RED CELL DISTRIBUTION WIDTH CV 15.9 % 11.5-14.5 H (test code = RDW) RED CELL DISTRIBUTION WIDTH SD 51.9 fL 37.0-54.0 N (test code = RDW-SD) PLATELET COUNT (test code = 149 x10 3/uL 150-400 L PLT) MEAN PLATELET VOLUME (test code 11.2 fL 7.0-9.0 H = MPV) NEUTROPHIL % (test code = NT%) 79.3 % 56.0-77.0 H IMMATURE GRANULOCYTE % (test 0.5 % 0.0-2.0 N code = IG%) LYMPHOCYTE % (test code = LY%) 11.8 % 14.0-32.0 L MONOCYTE % (test code = MO%) 8.1 % 4.8-9.0 N EOSINOPHIL % (test code = EO%) 0.0 % 0.3-3.7 L BASOPHIL % (test code = BA%) 0.3 % 0.0-2.0 N NUCLEATED RBC % (test code = 0.0 % 0-0 N NRBC%) NEUTROPHIL # (test code = NT#) 8.57 x10 3/uL 2.0-7.6 H IMMATURE GRANULOCYTE # (test 0.05 x10 3/uL 0.00-0.03 H code = IG#) LYMPHOCYTE # (test code = LY#) 1.27 x10 3/uL 1.0-3.8 N MONOCYTE # (test code = MO#) 0.88 x10 3/uL 0.1-0.8 H EOSINOPHIL # (test code = EO#) 0.00 x10 3/uL 0.0-0.2 N BASOPHIL # (test code = BA#) 0.03 x10 3/uL 0.0-0.2 N NUCLEATED RBC # (test code = 0.00 x10 3/uL 0.0-0.1 N NRBC#) MANUAL DIFF REQUIRED (test code NO = MDIFF) [id number] 21:32:00 Test Item Value Reference Range Interpretation Comments GLUBED (test code = 185 MG/DL 70-110 H 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 [facility] [id number] 16:40:00 Test Item Value Reference Range Interpretation Comments GLUBED (test code = 225 MG/DL 70-110 H 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 [facility] [id number] 12:21:00 Test Item Value Reference Range Interpretation Comments GLUBED (test code = 220 MG/DL 70-110 H 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 [facility] - XR CHEST 1 [id number] 08:09:00 [facility] : 1955 Sex: M FAX: Kevin Hinkle NP [place]: St: [facility] FAX: Jae Watkins I [phone] FAX: Avel [place] MD [phone] FAX: Zara Ruiz [phone] Name: SONYA MINAYA [facility] Lloyd Capellan : 1955 Age/S: 65/M [address] [place] [address] Unit #: [id number] Loc: [address] [address] Phys: Kevin Hinkle NP Acct: [id number] Dis Date: Status: ADM IN PHONE #: [phone] Exam Date: 12/24/2020 0549 FAX #: [phone] Reason: Cardiac Surgery Post Op EXAMS: CPT CODE: [id number] XR CHEST 1 V 11814 CHEST RADIOGRAPH ONE VIEW 12/24/2020 AT 0439 HOURS. CLINICAL HISTORY: Cardiac surgery. Postoperative. COMPARISON STUDIES: Chest one view 12/23/2020. FINDINGS: One view of the chest was obtained. Decreased lung volumes with central crowding of the pulmonary vasculature slightly improved subluxation of the left cardiac border. Persistent perihilar and bibasilar pulmonary opacities are again seen. Probable low-volume left pleural fluid. The right costophrenic sulcus is chart. Enlarged cardiac silhouette with median sternotomy keeping with history. The right IJ Humphrey-Tiffanie catheter sheath projects at the level of the SVC. Thepatient has been extubated and the nasogastric tube has been removed. No destructive bone lesions. IMPRESSION: 1. Extubation and nasogastric tube removal with slightly improved pulmonary aeration. 2. Persistent bilateral perihilar and bibasilar pulmonary opacities, probably representing atelectasis and or secretions. 3. Probable low-volume pleural fluid. SL: ER-H at 0809 Reported and signed by: Donato Plata M.D. 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 [id number] 04:10:00 Test Item Value Reference Range Interpretation Comments GLUBED (test code = 144 MG/DL 70-110 H 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 BASIC METABOLIC [id number] 03:49:00 Test Item Value Reference Range Interpretation Comments SODIUM (test code = NA) 140 mEq/L 134-147 N POTASSIUM (test code = 4.0 mEq/L 3.4-5.0 N K) CHLORIDE (test code = 107 mEq/L 100-108 N CL) CARBON DIOXIDE (test 26 mEq/l 21-33 N code = CO2) ANION GAP (test code = 11 0-20 N GAP) GLUCOSE (test code = 161 mg/dL 70-110 H GLU) BLOOD UREA NITROGEN 18 mg/dL 7-18 N (test code = BUN) GLOMERULAR FILTRATION 60.4 80-90 L Units of measure = RATE (test code = GFR) ml/mi n/1.73 m2 CREATININE (test code = 1.2 mg/dL 0.6-1.3 N CREAT) CALCIUM (test code = 8.6 mg/dL 8.0-10.5 N CA) COMMENTS: POD #1HEPATIC FUNCTION [id number] 03:49:00 Test Item Value Reference Range Interpretation Comments TOTAL PROTEIN (test code = PROT) 5.5 g/dL 6.4-8.2 L ALBUMIN (test code = ALB) 3.50 g/dL 3.4-5.0 N BILIRUBIN TOTAL (test code = BILT) 0.40 mg/dL 0.0-1.0 N BILIRUBIN DIRECT (test code = 0.20 MG/DL 0.0-0.30 N BILD) BILIRUBIN INDIRECT (test code = 0.20 MG/DL BILIND) SGOT/AST (test code = AST) 69 IUnit/L 15-37 H SGPT/ALT (test code = ALT) 17 IUnit/L 30-65 L ALKALINE PHOSPHATASE TOTAL (test 34 IUnit/L 20-125 N code = ALKP) COMMENTS: POD #[id number] 03:49:00 Test Item Value Reference Range Interpretation Comments MAGNESIUM (test code = MAG) 2.14 mg/dL 1.80-2.40 COMMENTS: POD #1LACTIC [id number] 03:42:00 Test Item Value Reference Range Interpretation Comments LACTIC ACID (test code = LACT) 1.4 mmol/L 0.4-1.9 N CBC W/AUTO [id number] 03:38:00 Test Item Value Reference Range Interpretation Comments WHITE BLOOD CELL (test code = 8.6 x10 3/uL 4.5-11.0 WBC) RED BLOOD CELL (test code = 3.42 x10 6/uL 4.00-5.60 L RBC) HEMOGLOBIN (test code = HGB) 9.6 g/dL 12.5-16.9 L HEMATOCRIT (test code = HCT) 30.8 % 37.5-50.7 L MEAN CELL VOLUME (test code = 90.1 fL 81.0-99.0 N MCV) MEAN CELL HGB (test code = MCH) 28.1 pg 27.0-33.0 N MEAN CELL HGB CONCETRATION 31.2 g/dL 33.0-37.0 L (test code = MCHC) RED CELL DISTRIBUTION WIDTH CV 15.9 % 11.5-14.5 H (test code = RDW) RED CELL DISTRIBUTION WIDTH SD 52.6 fL 37.0-54.0 N (test code = RDW-SD) PLATELET COUNT (test code = 154 x10 3/uL 150-400 N PLT) MEAN PLATELET VOLUME (test code 11.0 fL 7.0-9.0 H = MPV) NEUTROPHIL % (test code = NT%) 80.8 % 56.0-77.0 H IMMATURE GRANULOCYTE % (test 0.5 % 0.0-2.0 N code = IG%) LYMPHOCYTE % (test code = LY%) 10.3 % 14.0-32.0 L MONOCYTE % (test code = MO%) 8.2 % 4.8-9.0 N EOSINOPHIL % (test code = EO%) 0.0 % 0.3-3.7 L BASOPHIL % (test code = BA%) 0.2 % 0.0-2.0 N NUCLEATED RBC % (test code = 0.0 % 0-0 N NRBC%) NEUTROPHIL # (test code = NT#) 6.94 x10 3/uL 2.0-7.6 N IMMATURE GRANULOCYTE # (test 0.04 x10 3/uL 0.00-0.03 H code = IG#) LYMPHOCYTE # (test code = LY#) 0.88 x10 3/uL 1.0-3.8 L MONOCYTE # (test code = MO#) 0.70 x10 3/uL 0.1-0.8 N EOSINOPHIL # (test code = EO#) 0.00 x10 3/uL 0.0-0.2 N BASOPHIL # (test code = BA#) 0.02 x10 3/uL 0.0-0.2 N NUCLEATED RBC # (test code = 0.00 x10 3/uL 0.0-0.1 N NRBC#) MANUAL DIFF REQUIRED (test code NO = MDIFF) POC ARTERIAL BLOOD [id number] 03:11:00 Test Item Value Reference Range Interpretation Comments POC ARTERIAL BLOOD GAS PH (test 7.416 7.35-7.45 N code = POCPHA) POC ARTERIAL BLOOD GAS PCO2 (test 39.8 mmHg 35.0-45 N code = [id number]) POC TCO2 ARTERIAL (test code = 26.5 POCTCO2) POC ARTERIAL BLOOD GAS PO2 (test 56.6 mmHg 80-100.0 L code = PBDAD3Y) POC HCO3 ARTERIAL (test code = 25.3 MMOL/L 22.0-26.0 N [id number]) POC BASE EXCESS (test code = 1.0 MMOL/L -4.0-4.0 N POCBEA) POC O2 SATURATION (test code = 87.9 % 90-100 L POCO2S) ABG DELIVERY (test code = FRANCISCO) Cannula ABG TEMPERATURE (test code = 100.4 F TEMPA) ABG SITE (test code = SITEA) R Radial VIVEK'S TEST (test code = ALLENS) Positive [id number] 03:11:00 Test Item Value Reference Range Interpretation Comments SODIUM (test code = NA/ABG) MEQ/L 134-147 [id number] 03:11:00 Test Item Value Reference Range Interpretation Comments POTASSIUM (test code = K/ABG) MEQ/L 3.4-5.0 [id number] 03:11:00 Test Item Value Reference Range Interpretation Comments CHLORIDE (test code = CL/ABG) MEQ/L 100-108 CREATININE [id number] 03:11:00 Test Item Value Reference Range Interpretation Comments CREATININE ABG (test code = CREAABG) mg/dL 0.8-1.3 [id number] 03:11:00 Test Item Value Reference Range Interpretation Comments HEMOGLOBIN (test code = HGB/ABG) G/DL 12.5-16.9 [id number] 03:11:00 Test Item Value Reference Range Interpretation Comments HEMATOCRIT (test code = HCT/ABG) % 37.5-50.7 POC IONIZED [id number] 03:11:00 Test Item Value Reference Range Interpretation Comments POC IONIZED CALCIUM (test code = MMOL/L 1.12-1.32 POCCA) POC LACTIC [id number] 03:11:00 Test Item Value Reference Range Interpretation Comments POC LACTIC ACID (test code = POCLAC) mmol/l 0.9-1.7 POC [id number] 03:11:00 Test Item Value Reference Range Interpretation Comments POC GLUCOSE (test code = POCGLU) MG/DL 70-110 POC ARTERIAL BLOOD [id number] 03:11:00 Test Item Value Reference Range Interpretation Comments POC ARTERIAL BLOOD GAS PH (test 7.416 7.35-7.45 N code = POCPHA) POC ARTERIAL BLOOD GAS PCO2 (test 39.8 mmHg 35.0-45 N code = SWXPWW0C) POC TCO2 ARTERIAL (test code = 26.5 POCTCO2) POC ARTERIAL BLOOD GAS PO2 (test 56.6 mmHg 80-100.0 L code = CINAQ7A) POC HCO3 ARTERIAL (test code = 25.3 MMOL/L 22.0-26.0 N [id number]) POC BASE EXCESS (test code = 1.0 MMOL/L -4.0-4.0 N POCBEA) POC O2 SATURATION (test code = 87.9 % 90-100 L POCO2S) ABG DELIVERY (test code = FRANCISCO) Cannula ABG TEMPERATURE (test code = 100.4 F TEMPA) ABG SITE (test code = SITEA) R Radial VIVEK'S TEST (test code = ALLENS) Positive [id number] 03:11:00 Test Item Value Reference Range Interpretation Comments SODIUM (test code = NA/ABG) 140 MEQ/L 134-147 N [id number] 03:11:00 Test Item Value Reference Range Interpretation Comments POTASSIUM (test code = K/ABG) MEQ/L 3.4-5.0 [id number] 03:11:00 Test Item Value Reference Range Interpretation Comments CHLORIDE (test code = CL/ABG) MEQ/L 100-108 CREATININE [id number] 03:11:00 Test Item Value Reference Range Interpretation Comments CREATININE ABG (test code = CREAABG) mg/dL 0.8-1.3 [id number] 03:11:00 Test Item Value Reference Range Interpretation Comments HEMOGLOBIN (test code = HGB/ABG) G/DL 12.5-16.9 [id number] 03:11:00 Test Item Value Reference Range Interpretation Comments HEMATOCRIT (test code = HCT/ABG) % 37.5-50.7 POC IONIZED [id number] 03:11:00 Test Item Value Reference Range Interpretation Comments POC IONIZED CALCIUM (test code = MMOL/L 1.12-1.32 POCCA) POC LACTIC [id number] 03:11:00 Test Item Value Reference Range Interpretation Comments POC LACTIC ACID (test code = POCLAC) mmol/l 0.9-1.7 POC [id number] 03:11:00 Test Item Value Reference Range Interpretation Comments POC GLUCOSE (test code = POCGLU) MG/DL 70-110 POC ARTERIAL BLOOD [id number] 03:11:00 Test Item Value Reference Range Interpretation Comments POC ARTERIAL BLOOD GAS PH (test 7.416 7.35-7.45 N code = POCPHA) POC ARTERIAL BLOOD GAS PCO2 (test 39.8 mmHg 35.0-45 N code = RCUUYQ6H) POC TCO2 ARTERIAL (test code = 26.5 POCTCO2) POC ARTERIAL BLOOD GAS PO2 (test 56.6 mmHg 80-100.0 L code = DDZHZ4T) POC HCO3 ARTERIAL (test code = 25.3 MMOL/L 22.0-26.0 N TSCTOJ5Q) POC BASE EXCESS (test code = 1.0 MMOL/L -4.0-4.0 N POCBEA) POC O2 SATURATION (test code = 87.9 % 90-100 L POCO2S) ABG DELIVERY (test code = FRANCISCO) Cannula ABG TEMPERATURE (test code = 100.4 F TEMPA) ABG SITE (test code = SITEA) R Radial VIVEK'S TEST (test code = ALLENS) Positive [id number] 03:11:00 Test Item Value Reference Range Interpretation Comments SODIUM (test code = NA/ABG) 140 MEQ/L 134-147 N [id number] 03:11:00 Test Item Value Reference Range Interpretation Comments POTASSIUM (test code = K/ABG) 4.0 MEQ/L 3.4-5.0 N [id number] 03:11:00 Test Item Value Reference Range Interpretation Comments CHLORIDE (test code = CL/ABG) MEQ/L 100-108 CREATININE [id number] 03:11:00 Test Item Value Reference Range Interpretation Comments CREATININE ABG (test code = CREAABG) mg/dL 0.8-1.3 [id number] 03:11:00 Test Item Value Reference Range Interpretation Comments HEMOGLOBIN (test code = HGB/ABG) G/DL 12.5-16.9 [id number] 03:11:00 Test Item Value Reference Range Interpretation Comments HEMATOCRIT (test code = HCT/ABG) % 37.5-50.7 POC IONIZED [id number] 03:11:00 Test Item Value Reference Range Interpretation Comments POC IONIZED CALCIUM (test code = MMOL/L 1.12-1.32 POCCA) POC LACTIC [id number] 03:11:00 Test Item Value Reference Range Interpretation Comments POC LACTIC ACID (test code = POCLAC) mmol/l 0.9-1.7 POC [id number] 03:11:00 Test Item Value Reference Range Interpretation Comments POC GLUCOSE (test code = POCGLU) MG/DL 70-110 POC ARTERIAL BLOOD [id number] 03:11:00 Test Item Value Reference Range Interpretation Comments POC ARTERIAL BLOOD GAS PH (test 7.416 7.35-7.45 N code = POCPHA) POC ARTERIAL BLOOD GAS PCO2 (test 39.8 mmHg 35.0-45 N code = OEQECN0Y) POC TCO2 ARTERIAL (test code = 26.5 POCTCO2) POC ARTERIAL BLOOD GAS PO2 (test 56.6 mmHg 80-100.0 L code = ITDPU6R) POC HCO3 ARTERIAL (test code = 25.3 MMOL/L 22.0-26.0 N XYOEAQ2W) POC BASE EXCESS (test code = 1.0 MMOL/L -4.0-4.0 N POCBEA) POC O2 SATURATION (test code = 87.9 % 90-100 L POCO2S) ABG DELIVERY (test code = FRANCISCO) Cannula ABG TEMPERATURE (test code = 100.4 F TEMPA) ABG SITE (test code = SITEA) R Radial VIVEK'S TEST (test code = ALLENS) Positive [id number] 03:11:00 Test Item Value Reference Range Interpretation Comments SODIUM (test code = NA/ABG) 140 MEQ/L 134-147 N [id number] 03:11:00 Test Item Value Reference Range Interpretation Comments POTASSIUM (test code = K/ABG) 4.0 MEQ/L 3.4-5.0 N [id number] 03:11:00 Test Item Value Reference Range Interpretation Comments CHLORIDE (test code = CL/ABG) MEQ/L 100-108 CREATININE [id number] 03:11:00 Test Item Value Reference Range Interpretation Comments CREATININE ABG (test code = CREAABG) mg/dL 0.8-1.3 [id number] 03:11:00 Test Item Value Reference Range Interpretation Comments HEMOGLOBIN (test code = HGB/ABG) G/DL 12.5-16.9 [id number] 03:11:00 Test Item Value Reference Range Interpretation Comments HEMATOCRIT (test code = HCT/ABG) % 37.5-50.7 POC IONIZED [id number] 03:11:00 Test Item Value Reference Range Interpretation Comments POC IONIZED CALCIUM (test code = 1.13 MMOL/L 1.12-1.32 N POCCA) POC LACTIC [id number] 03:11:00 Test Item Value Reference Range Interpretation Comments POC LACTIC ACID (test code = POCLAC) mmol/l 0.9-1.7 POC [id number] 03:11:00 Test Item Value Reference Range Interpretation Comments POC GLUCOSE (test code = POCGLU) MG/DL 70-110 POC ARTERIAL BLOOD [id number] 03:11:00 Test Item Value Reference Range Interpretation Comments POC ARTERIAL BLOOD GAS PH (test 7.416 7.35-7.45 N code = POCPHA) POC ARTERIAL BLOOD GAS PCO2 (test 39.8 mmHg 35.0-45 N code = MAAFUO9B) POC TCO2 ARTERIAL (test code = 26.5 POCTCO2) POC ARTERIAL BLOOD GAS PO2 (test 56.6 mmHg 80-100.0 L code = CWCVQ8D) POC HCO3 ARTERIAL (test code = 25.3 MMOL/L 22.0-26.0 N PGNOQN5R) POC BASE EXCESS (test code = 1.0 MMOL/L -4.0-4.0 N POCBEA) POC O2 SATURATION (test code = 87.9 % 90-100 L POCO2S) ABG DELIVERY (test code = FRANCISCO) Cannula ABG TEMPERATURE (test code = 100.4 F TEMPA) ABG SITE (test code = SITEA) R Radial VIVEK'S TEST (test code = ALLENS) Positive [id number] 03:11:00 Test Item Value Reference Range Interpretation Comments SODIUM (test code = NA/ABG) 140 MEQ/L 134-147 N [id number] 03:11:00 Test Item Value Reference Range Interpretation Comments POTASSIUM (test code = K/ABG) 4.0 MEQ/L 3.4-5.0 N [id number] 03:11:00 Test Item Value Reference Range Interpretation Comments CHLORIDE (test code = CL/ABG) MEQ/L 100-108 CREATININE [id number] 03:11:00 Test Item Value Reference Range Interpretation Comments CREATININE ABG (test code = CREAABG) mg/dL 0.8-1.3 [id number] 03:11:00 Test Item Value Reference Range Interpretation Comments HEMOGLOBIN (test code = HGB/ABG) G/DL 12.5-16.9 [id number] 03:11:00 Test Item Value Reference Range Interpretation Comments HEMATOCRIT (test code = HCT/ABG) % 37.5-50.7 POC IONIZED [id number] 03:11:00 Test Item Value Reference Range Interpretation Comments POC IONIZED CALCIUM (test code = 1.13 MMOL/L 1.12-1.32 N POCCA) POC LACTIC [id number] 03:11:00 Test Item Value Reference Range Interpretation Comments POC LACTIC ACID (test code = POCLAC) mmol/l 0.9-1.7 POC [id number] 03:11:00 Test Item Value Reference Range Interpretation Comments POC GLUCOSE (test code = POCGLU) 160 MG/DL 70-110 H POC ARTERIAL BLOOD [id number] 03:11:00 Test Item Value Reference Range Interpretation Comments POC ARTERIAL BLOOD GAS PH (test 7.416 7.35-7.45 N code = POCPHA) POC ARTERIAL BLOOD GAS PCO2 (test 39.8 mmHg 35.0-45 N code = FYIBFM6X) POC TCO2 ARTERIAL (test code = 26.5 POCTCO2) POC ARTERIAL BLOOD GAS PO2 (test 56.6 mmHg 80-100.0 L code = RICFD5Q) POC HCO3 ARTERIAL (test code = 25.3 MMOL/L 22.0-26.0 N FKNIVB9T) POC BASE EXCESS (test code = 1.0 MMOL/L -4.0-4.0 N POCBEA) POC O2 SATURATION (test code = 87.9 % 90-100 L POCO2S) ABG DELIVERY (test code = FRANCISCO) Cannula ABG TEMPERATURE (test code = 100.4 F TEMPA) ABG SITE (test code = SITEA) R Radial VIVEK'S TEST (test code = ALLENS) Positive [id number] 03:11:00 Test Item Value Reference Range Interpretation Comments SODIUM (test code = NA/ABG) 140 MEQ/L 134-147 N [id number] 03:11:00 Test Item Value Reference Range Interpretation Comments POTASSIUM (test code = K/ABG) 4.0 MEQ/L 3.4-5.0 N [id number] 03:11:00 Test Item Value Reference Range Interpretation Comments CHLORIDE (test code = CL/ABG) MEQ/L 100-108 CREATININE [id number] 03:11:00 Test Item Value Reference Range Interpretation Comments CREATININE ABG (test code = CREAABG) mg/dL 0.8-1.3 [id number] 03:11:00 Test Item Value Reference Range Interpretation Comments HEMOGLOBIN (test code = HGB/ABG) G/DL 12.5-16.9 [id number] 03:11:00 Test Item Value Reference Range Interpretation Comments HEMATOCRIT (test code = HCT/ABG) % 37.5-50.7 POC IONIZED [id number] 03:11:00 Test Item Value Reference Range Interpretation Comments POC IONIZED CALCIUM (test code = 1.13 MMOL/L 1.12-1.32 N POCCA) POC LACTIC [id number] 03:11:00 Test Item Value Reference Range Interpretation Comments POC LACTIC ACID (test code = 1.3 mmol/l 0.9-1.7 N POCLAC) POC [id number] 03:11:00 Test Item Value Reference Range Interpretation Comments POC GLUCOSE (test code = POCGLU) 160 MG/DL 70-110 H POC ARTERIAL BLOOD [id number] 03:11:00 Test Item Value Reference Range Interpretation Comments POC ARTERIAL BLOOD GAS PH (test 7.416 7.35-7.45 N code = POCPHA) POC ARTERIAL BLOOD GAS PCO2 (test 39.8 mmHg 35.0-45 N code = MDLZMW4V) POC TCO2 ARTERIAL (test code = 26.5 POCTCO2) POC ARTERIAL BLOOD GAS PO2 (test 56.6 mmHg 80-100.0 L code = HPGRT5T) POC HCO3 ARTERIAL (test code = 25.3 MMOL/L 22.0-26.0 N UTMLLS3A) POC BASE EXCESS (test code = 1.0 MMOL/L -4.0-4.0 N POCBEA) POC O2 SATURATION (test code = 87.9 % 90-100 L POCO2S) ABG DELIVERY (test code = FRANCISCO) Cannula ABG TEMPERATURE (test code = 100.4 F TEMPA) ABG SITE (test code = SITEA) R Radial VIVEK'S TEST (test code = ALLENS) Positive [id number] 03:11:00 Test Item Value Reference Range Interpretation Comments SODIUM (test code = NA/ABG) 140 MEQ/L 134-147 N [id number] 03:11:00 Test Item Value Reference Range Interpretation Comments POTASSIUM (test code = K/ABG) 4.0 MEQ/L 3.4-5.0 N [id number] 03:11:00 Test Item Value Reference Range Interpretation Comments CHLORIDE (test code = CL/ABG) MEQ/L 100-108 CREATININE [id number] 03:11:00 Test Item Value Reference Range Interpretation Comments CREATININE ABG (test code = CREAABG) mg/dL 0.8-1.3 [id number] 03:11:00 Test Item Value Reference Range Interpretation Comments HEMOGLOBIN (test code = HGB/ABG) G/DL 12.5-16.9 [id number] 03:11:00 Test Item Value Reference Range Interpretation Comments HEMATOCRIT (test code = HCT/ABG) 28 % 37.5-50.7 L POC IONIZED [id number] 03:11:00 Test Item Value Reference Range Interpretation Comments POC IONIZED CALCIUM (test code = 1.13 MMOL/L 1.12-1.32 N POCCA) POC LACTIC [id number] 03:11:00 Test Item Value Reference Range Interpretation Comments POC LACTIC ACID (test code = 1.3 mmol/l 0.9-1.7 N POCLAC) POC [id number] 03:11:00 Test Item Value Reference Range Interpretation Comments POC GLUCOSE (test code = POCGLU) 160 MG/DL 70-110 H POC ARTERIAL BLOOD [id number] 03:11:00 Test Item Value Reference Range Interpretation Comments POC ARTERIAL BLOOD GAS PH (test 7.416 7.35-7.45 N code = POCPHA) POC ARTERIAL BLOOD GAS PCO2 (test 39.8 mmHg 35.0-45 N code = XPTANI2O) POC TCO2 ARTERIAL (test code = 26.5 POCTCO2) POC ARTERIAL BLOOD GAS PO2 (test 56.6 mmHg 80-100.0 L code = ASMYW4K) POC HCO3 ARTERIAL (test code = 25.3 MMOL/L 22.0-26.0 N QESUJP9V) POC BASE EXCESS (test code = 1.0 MMOL/L -4.0-4.0 N POCBEA) POC O2 SATURATION (test code = 87.9 % 90-100 L POCO2S) ABG DELIVERY (test code = FRANCISCO) Cannula ABG TEMPERATURE (test code = 100.4 F TEMPA) ABG SITE (test code = SITEA) R Radial VIVEK'S TEST (test code = ALLENS) Positive [id number] 03:11:00 Test Item Value Reference Range Interpretation Comments SODIUM (test code = NA/ABG) 140 MEQ/L 134-147 N [id number] 03:11:00 Test Item Value Reference Range Interpretation Comments POTASSIUM (test code = K/ABG) 4.0 MEQ/L 3.4-5.0 N [id number] 03:11:00 Test Item Value Reference Range Interpretation Comments CHLORIDE (test code = CL/ABG) MEQ/L 100-108 CREATININE [id number] 03:11:00 Test Item Value Reference Range Interpretation Comments CREATININE ABG (test code = CREAABG) mg/dL 0.8-1.3 [id number] 03:11:00 Test Item Value Reference Range Interpretation Comments HEMOGLOBIN (test code = HGB/ABG) 9.4 G/DL 12.5-16.9 L [id number] 03:11:00 Test Item Value Reference Range Interpretation Comments HEMATOCRIT (test code = HCT/ABG) 28 % 37.5-50.7 L POC IONIZED [id number] 03:11:00 Test Item Value Reference Range Interpretation Comments POC IONIZED CALCIUM (test code = 1.13 MMOL/L 1.12-1.32 N POCCA) POC LACTIC [id number] 03:11:00 Test Item Value Reference Range Interpretation Comments POC LACTIC ACID (test code = 1.3 mmol/l 0.9-1.7 N POCLAC) POC [id number] 03:11:00 Test Item Value Reference Range Interpretation Comments POC GLUCOSE (test code = POCGLU) 160 MG/DL 70-110 H POC ARTERIAL BLOOD [id number] 03:11:00 Test Item Value Reference Range Interpretation Comments POC ARTERIAL BLOOD GAS PH (test 7.416 7.35-7.45 N code = POCPHA) POC ARTERIAL BLOOD GAS PCO2 (test 39.8 mmHg 35.0-45 N code = AGMSSO0S) POC TCO2 ARTERIAL (test code = 26.5 POCTCO2) POC ARTERIAL BLOOD GAS PO2 (test 56.6 mmHg 80-100.0 L code = WHUMP2Y) POC HCO3 ARTERIAL (test code = 25.3 MMOL/L 22.0-26.0 N UXCROX4I) POC BASE EXCESS (test code = 1.0 MMOL/L -4.0-4.0 N POCBEA) POC O2 SATURATION (test code = 87.9 % 90-100 L POCO2S) ABG DELIVERY (test code = FRANCISCO) Cannula ABG TEMPERATURE (test code = 100.4 F TEMPA) ABG SITE (test code = SITEA) R Radial VIVEK'S TEST (test code = ALLENS) Positive [id number] 03:11:00 Test Item Value Reference Range Interpretation Comments SODIUM (test code = NA/ABG) 140 MEQ/L 134-147 N [id number] 03:11:00 Test Item Value Reference Range Interpretation Comments POTASSIUM (test code = K/ABG) 4.0 MEQ/L 3.4-5.0 N [id number] 03:11:00 Test Item Value Reference Range Interpretation Comments CHLORIDE (test code = CL/ABG) 103 MEQ/L 100-108 N CREATININE [id number] 03:11:00 Test Item Value Reference Range Interpretation Comments CREATININE ABG (test code = CREAABG) mg/dL 0.8-1.3 [id number] 03:11:00 Test Item Value Reference Range Interpretation Comments HEMOGLOBIN (test code = HGB/ABG) 9.4 G/DL 12.5-16.9 L [id number] 03:11:00 Test Item Value Reference Range Interpretation Comments HEMATOCRIT (test code = HCT/ABG) 28 % 37.5-50.7 L POC IONIZED [id number] 03:11:00 Test Item Value Reference Range Interpretation Comments POC IONIZED CALCIUM (test code = 1.13 MMOL/L 1.12-1.32 N POCCA) POC LACTIC [id number] 03:11:00 Test Item Value Reference Range Interpretation Comments POC LACTIC ACID (test code = 1.3 mmol/l 0.9-1.7 N POCLAC) POC [id number] 03:11:00 Test Item Value Reference Range Interpretation Comments POC GLUCOSE (test code = POCGLU) 160 MG/DL 70-110 H POC ARTERIAL BLOOD [id number] 03:11:00 Test Item Value Reference Range Interpretation Comments POC ARTERIAL BLOOD GAS PH (test 7.416 7.35-7.45 N code = POCPHA) POC ARTERIAL BLOOD GAS PCO2 (test 39.8 mmHg 35.0-45 N code = HVBHHP0R) POC TCO2 ARTERIAL (test code = 26.5 POCTCO2) POC ARTERIAL BLOOD GAS PO2 (test 56.6 mmHg 80-100.0 L code = XFLLG3M) POC HCO3 ARTERIAL (test code = 25.3 MMOL/L 22.0-26.0 N LYCGMO5D) POC BASE EXCESS (test code = 1.0 MMOL/L -4.0-4.0 N POCBEA) POC O2 SATURATION (test code = 87.9 % 90-100 L POCO2S) ABG DELIVERY (test code = FRANCISCO) Cannula ABG TEMPERATURE (test code = 100.4 F TEMPA) ABG SITE (test code = SITEA) R Radial VIVEK'S TEST (test code = ALLENS) Positive [id number] 03:11:00 Test Item Value Reference Range Interpretation Comments SODIUM (test code = NA/ABG) 140 MEQ/L 134-147 N [id number] 03:11:00 Test Item Value Reference Range Interpretation Comments POTASSIUM (test code = K/ABG) 4.0 MEQ/L 3.4-5.0 N [id number] 03:11:00 Test Item Value Reference Range Interpretation Comments CHLORIDE (test code = CL/ABG) 103 MEQ/L 100-108 N CREATININE [id number] 03:11:00 Test Item Value Reference Range Interpretation Comments CREATININE ABG (test code = 1.2 mg/dL 0.8-1.3 N CREAABG) [id number] 03:11:00 Test Item Value Reference Range Interpretation Comments HEMOGLOBIN (test code = HGB/ABG) 9.4 G/DL 12.5-16.9 L [id number] 03:11:00 Test Item Value Reference Range Interpretation Comments HEMATOCRIT (test code = HCT/ABG) 28 % 37.5-50.7 L POC IONIZED [id number] 03:11:00 Test Item Value Reference Range Interpretation Comments POC IONIZED CALCIUM (test code = 1.13 MMOL/L 1.12-1.32 N POCCA) POC LACTIC [id number] 03:11:00 Test Item Value Reference Range Interpretation Comments POC LACTIC ACID (test code = 1.3 mmol/l 0.9-1.7 N POCLAC) POC [id number] 03:11:00 Test Item Value Reference Range Interpretation Comments POC GLUCOSE (test code = POCGLU) 160 MG/DL 70-110 H [id number] 02:07:00 Test Item Value Reference Range Interpretation Comments GLUBED (test code = 151 MG/DL 70-110 H 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[place] [id number] 00:12:00 Test Item Value Reference Range Interpretation Comments GLUBED (test code = 145 MG/DL 70-110 H 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[place] [id number] 22:22:00 Test Item Value Reference Range Interpretation Comments GLUBED (test code = 131 MG/DL 70-110 H 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[place] LACTIC [id number] 21:38:00 Test Item Value Reference Range Interpretation Comments LACTIC ACID (test code = LACT) 1.9 mmol/L 0.4-1.9 N [id number] 21:34:00 Test Item Value Reference Range Interpretation Comments POTASSIUM (test code = K) 4.4 mEq/L 3.4-5.0 [id number] 20:02:00 Test Item Value Reference Range Interpretation Comments GLUBED (test code = 174 MG/DL 70-110 H 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[place] [id number] 19:24:00 Test Item Value Reference Range Interpretation Comments GLUBED (test code = 183 MG/DL 70-110 H 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[place] [id number] 19:24:00 Test Item Value Reference Range Interpretation Comments GLUBED (test code = 174 MG/DL 70-110 H 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[place] [id number] 19:24:00 Test Item Value Reference Range Interpretation Comments GLUBED (test code = 164 MG/DL 70-110 H 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[place] LACTIC ACID 2ND [id number] 17:42:00 Test Item Value Reference Range Interpretation Comments LACTIC ACID 2ND REPEAT (test code 5.6 mmol/L 0.4-1.9 HH = LACT2) LACTIC ACID [id number] 15:36:00 Test Item Value Reference Range Interpretation Comments LACTIC ACID REPEAT (test code = 6.4 mmol/l 0.4-1.9 HH LACTR) [id number] 15:01:00 Test Item Value Reference Range Interpretation Comments GLUBED (test code = 147 MG/DL 70-110 H 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[place] [id number] 15:01:00 Test Item Value Reference Range Interpretation Comments GLUBED (test code = 135 MG/DL 70-110 H 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[place] POC ARTERIAL BLOOD [id number] 14:42:00 Test Item Value Reference Range Interpretation Comments POC ARTERIAL BLOOD GAS PH (test 7.345 7.35-7.45 L code = POCPHA) POC ARTERIAL BLOOD GAS PCO2 41.9 mmHg 35.0-45 N (test code = CEWGYS4T) POC TCO2 ARTERIAL (test code = 24.2 POCTCO2) POC ARTERIAL BLOOD GAS PO2 (test 65.8 mmHg 80-100.0 L code = WWTKH5Z) POC HCO3 ARTERIAL (test code = 22.9 MMOL/L 22.0-26.0 N MXBRKU0S) POC BASE EXCESS (test code = -2.8 MMOL/L -4.0-4.0 N POCBEA) POC O2 SATURATION (test code = 91.5 % 90-100 N POCO2S) FIO2 (test code = FIO2A) 50 % PaO2/FiO2 (test code = [id number]) 131.60 mm/Hg ABG DELIVERY (test code = FRANCISCO) Adult Vent ABG VENT MODE (test code = CPAP/PS MODEA) ABG VENT RESP RATE (test code = 24 /MIN RRA) ABG TIDAL VOLUME (test code = 740 ml TVA) ABG PEEP (test code = PEEPA) 5 cmH2O ABG PRESSURE SUPPORT (test code 5 cmH2O = PSABG) ABG SITE (test code = SITEA) Art Line [id number] 14:42:00 Test Item Value Reference Range Interpretation Comments SODIUM (test code = NA/ABG) MEQ/L 134-147 [id number] 14:42:00 Test Item Value Reference Range Interpretation Comments POTASSIUM (test code = K/ABG) MEQ/L 3.4-5.0 [id number] 14:42:00 Test Item Value Reference Range Interpretation Comments CHLORIDE (test code = CL/ABG) MEQ/L 100-108 CREATININE [id number] 14:42:00 Test Item Value Reference Range Interpretation Comments CREATININE ABG (test code = CREAABG) mg/dL 0.8-1.3 [id number] 14:42:00 Test Item Value Reference Range Interpretation Comments HEMOGLOBIN (test code = HGB/ABG) G/DL 12.5-16.9 [id number] 14:42:00 Test Item Value Reference Range Interpretation Comments HEMATOCRIT (test code = HCT/ABG) % 37.5-50.7 POC IONIZED [id number] 14:42:00 Test Item Value Reference Range Interpretation Comments POC IONIZED CALCIUM (test code = MMOL/L 1.12-1.32 POCCA) POC LACTIC [id number] 14:42:00 Test Item Value Reference Range Interpretation Comments POC LACTIC ACID (test code = POCLAC) mmol/l 0.9-1.7 POC [id number] 14:42:00 Test Item Value Reference Range Interpretation Comments POC GLUCOSE (test code = POCGLU) MG/DL 70-110 POC ARTERIAL BLOOD [id number] 14:42:00 Test Item Value Reference Range Interpretation Comments POC ARTERIAL BLOOD GAS PH (test 7.345 7.35-7.45 L code = POCPHA) POC ARTERIAL BLOOD GAS PCO2 41.9 mmHg 35.0-45 N (test code = [id number]) POC TCO2 ARTERIAL (test code = 24.2 POCTCO2) POC ARTERIAL BLOOD GAS PO2 (test 65.8 mmHg 80-100.0 L code = PAJLY5U) POC HCO3 ARTERIAL (test code = 22.9 MMOL/L 22.0-26.0 N [id number]) POC BASE EXCESS (test code = -2.8 MMOL/L -4.0-4.0 N POCBEA) POC O2 SATURATION (test code = 91.5 % 90-100 N POCO2S) FIO2 (test code = FIO2A) 50 % PaO2/FiO2 (test code = [id number]) 131.60 mm/Hg ABG DELIVERY (test code = FRANCISCO) Adult Vent ABG VENT MODE (test code = CPAP/PS MODEA) ABG VENT RESP RATE (test code = 24 /MIN RRA) ABG TIDAL VOLUME (test code = 740 ml TVA) ABG PEEP (test code = PEEPA) 5 cmH2O ABG PRESSURE SUPPORT (test code 5 cmH2O = PSABG) ABG SITE (test code = SITEA) Art Line [id number] 14:42:00 Test Item Value Reference Range Interpretation Comments SODIUM (test code = NA/ABG) 146 MEQ/L 134-147 N [id number] 14:42:00 Test Item Value Reference Range Interpretation Comments POTASSIUM (test code = K/ABG) MEQ/L 3.4-5.0 [id number] 14:42:00 Test Item Value Reference Range Interpretation Comments CHLORIDE (test code = CL/ABG) MEQ/L 100-108 CREATININE [id number] 14:42:00 Test Item Value Reference Range Interpretation Comments CREATININE ABG (test code = CREAABG) mg/dL 0.8-1.3 [id number] 14:42:00 Test Item Value Reference Range Interpretation Comments HEMOGLOBIN (test code = HGB/ABG) G/DL 12.5-16.9 [id number] 14:42:00 Test Item Value Reference Range Interpretation Comments HEMATOCRIT (test code = HCT/ABG) % 37.5-50.7 POC IONIZED [id number] 14:42:00 Test Item Value Reference Range Interpretation Comments POC IONIZED CALCIUM (test code = MMOL/L 1.12-1.32 POCCA) POC LACTIC [id number] 14:42:00 Test Item Value Reference Range Interpretation Comments POC LACTIC ACID (test code = POCLAC) mmol/l 0.9-1.7 POC [id number] 14:42:00 Test Item Value Reference Range Interpretation Comments POC GLUCOSE (test code = POCGLU) MG/DL 70-110 POC ARTERIAL BLOOD [id number] 14:42:00 Test Item Value Reference Range Interpretation Comments POC ARTERIAL BLOOD GAS PH (test 7.345 7.35-7.45 L code = POCPHA) POC ARTERIAL BLOOD GAS PCO2 41.9 mmHg 35.0-45 N (test code = ESDACZ5Y) POC TCO2 ARTERIAL (test code = 24.2 POCTCO2) POC ARTERIAL BLOOD GAS PO2 (test 65.8 mmHg 80-100.0 L code = JMJYJ1K) POC HCO3 ARTERIAL (test code = 22.9 MMOL/L 22.0-26.0 N MIMHEC4L) POC BASE EXCESS (test code = -2.8 MMOL/L -4.0-4.0 N POCBEA) POC O2 SATURATION (test code = 91.5 % 90-100 N POCO2S) FIO2 (test code = FIO2A) 50 % PaO2/FiO2 (test code = [id number]) 131.60 mm/Hg ABG DELIVERY (test code = FRANCISCO) Adult Vent ABG VENT MODE (test code = CPAP/PS MODEA) ABG VENT RESP RATE (test code = 24 /MIN RRA) ABG TIDAL VOLUME (test code = 740 ml TVA) ABG PEEP (test code = PEEPA) 5 cmH2O ABG PRESSURE SUPPORT (test code 5 cmH2O = PSABG) ABG SITE (test code = SITEA) Art Line [id number] 14:42:00 Test Item Value Reference Range Interpretation Comments SODIUM (test code = NA/ABG) 146 MEQ/L 134-147 N [id number] 14:42:00 Test Item Value Reference Range Interpretation Comments POTASSIUM (test code = K/ABG) 3.5 MEQ/L 3.4-5.0 N [id number] 14:42:00 Test Item Value Reference Range Interpretation Comments CHLORIDE (test code = CL/ABG) MEQ/L 100-108 CREATININE [id number] 14:42:00 Test Item Value Reference Range Interpretation Comments CREATININE ABG (test code = CREAABG) mg/dL 0.8-1.3 [id number] 14:42:00 Test Item Value Reference Range Interpretation Comments HEMOGLOBIN (test code = HGB/ABG) G/DL 12.5-16.9 [id number] 14:42:00 Test Item Value Reference Range Interpretation Comments HEMATOCRIT (test code = HCT/ABG) % 37.5-50.7 POC IONIZED [id number] 14:42:00 Test Item Value Reference Range Interpretation Comments POC IONIZED CALCIUM (test code = MMOL/L 1.12-1.32 POCCA) POC LACTIC [id number] 14:42:00 Test Item Value Reference Range Interpretation Comments POC LACTIC ACID (test code = POCLAC) mmol/l 0.9-1.7 POC [id number] 14:42:00 Test Item Value Reference Range Interpretation Comments POC GLUCOSE (test code = POCGLU) MG/DL 70-110 POC ARTERIAL BLOOD [id number] 14:42:00 Test Item Value Reference Range Interpretation Comments POC ARTERIAL BLOOD GAS PH (test 7.345 7.35-7.45 L code = POCPHA) POC ARTERIAL BLOOD GAS PCO2 41.9 mmHg 35.0-45 N (test code = QLWSJT2C) POC TCO2 ARTERIAL (test code = 24.2 POCTCO2) POC ARTERIAL BLOOD GAS PO2 (test 65.8 mmHg 80-100.0 L code = TOGOS3R) POC HCO3 ARTERIAL (test code = 22.9 MMOL/L 22.0-26.0 N MSFXSK4K) POC BASE EXCESS (test code = -2.8 MMOL/L -4.0-4.0 N POCBEA) POC O2 SATURATION (test code = 91.5 % 90-100 N POCO2S) FIO2 (test code = FIO2A) 50 % PaO2/FiO2 (test code = GZP4KXE7) 131.60 mm/Hg ABG DELIVERY (test code = FRANCISCO) Adult Vent ABG VENT MODE (test code = CPAP/PS MODEA) ABG VENT RESP RATE (test code = 24 /MIN RRA) ABG TIDAL VOLUME (test code = 740 ml TVA) ABG PEEP (test code = PEEPA) 5 cmH2O ABG PRESSURE SUPPORT (test code 5 cmH2O = PSABG) ABG SITE (test code = SITEA) Art Line [id number] 14:42:00 Test Item Value Reference Range Interpretation Comments SODIUM (test code = NA/ABG) 146 MEQ/L 134-147 N [id number] 14:42:00 Test Item Value Reference Range Interpretation Comments POTASSIUM (test code = K/ABG) 3.5 MEQ/L 3.4-5.0 N [id number] 14:42:00 Test Item Value Reference Range Interpretation Comments CHLORIDE (test code = CL/ABG) MEQ/L 100-108 CREATININE [id number] 14:42:00 Test Item Value Reference Range Interpretation Comments CREATININE ABG (test code = CREAABG) mg/dL 0.8-1.3 [id number] 14:42:00 Test Item Value Reference Range Interpretation Comments HEMOGLOBIN (test code = HGB/ABG) G/DL 12.5-16.9 [id number] 14:42:00 Test Item Value Reference Range Interpretation Comments HEMATOCRIT (test code = HCT/ABG) % 37.5-50.7 POC IONIZED [id number] 14:42:00 Test Item Value Reference Range Interpretation Comments POC IONIZED CALCIUM (test code = 1.22 MMOL/L 1.12-1.32 N POCCA) POC LACTIC [id number] 14:42:00 Test Item Value Reference Range Interpretation Comments POC LACTIC ACID (test code = POCLAC) mmol/l 0.9-1.7 POC [id number] 14:42:00 Test Item Value Reference Range Interpretation Comments POC GLUCOSE (test code = POCGLU) MG/DL 70-110 POC ARTERIAL BLOOD [id number] 14:42:00 Test Item Value Reference Range Interpretation Comments POC ARTERIAL BLOOD GAS PH (test 7.345 7.35-7.45 L code = POCPHA) POC ARTERIAL BLOOD GAS PCO2 41.9 mmHg 35.0-45 N (test code = QXINDW2A) POC TCO2 ARTERIAL (test code = 24.2 POCTCO2) POC ARTERIAL BLOOD GAS PO2 (test 65.8 mmHg 80-100.0 L code = CUEPR5P) POC HCO3 ARTERIAL (test code = 22.9 MMOL/L 22.0-26.0 N VXERBA4R) POC BASE EXCESS (test code = -2.8 MMOL/L -4.0-4.0 N POCBEA) POC O2 SATURATION (test code = 91.5 % 90-100 N POCO2S) FIO2 (test code = FIO2A) 50 % PaO2/FiO2 (test code = DHV2ABG9) 131.60 mm/Hg ABG DELIVERY (test code = FARNCISCO) Adult Vent ABG VENT MODE (test code = CPAP/PS MODEA) ABG VENT RESP RATE (test code = 24 /MIN RRA) ABG TIDAL VOLUME (test code = 740 ml TVA) ABG PEEP (test code = PEEPA) 5 cmH2O ABG PRESSURE SUPPORT (test code 5 cmH2O = PSABG) ABG SITE (test code = SITEA) Art Line [id number] 14:42:00 Test Item Value Reference Range Interpretation Comments SODIUM (test code = NA/ABG) 146 MEQ/L 134-147 N [id number] 14:42:00 Test Item Value Reference Range Interpretation Comments POTASSIUM (test code = K/ABG) 3.5 MEQ/L 3.4-5.0 N [id number] 14:42:00 Test Item Value Reference Range Interpretation Comments CHLORIDE (test code = CL/ABG) MEQ/L 100-108 CREATININE [id number] 14:42:00 Test Item Value Reference Range Interpretation Comments CREATININE ABG (test code = CREAABG) mg/dL 0.8-1.3 [id number] 14:42:00 Test Item Value Reference Range Interpretation Comments HEMOGLOBIN (test code = HGB/ABG) G/DL 12.5-16.9 [id number] 14:42:00 Test Item Value Reference Range Interpretation Comments HEMATOCRIT (test code = HCT/ABG) % 37.5-50.7 POC IONIZED [id number] 14:42:00 Test Item Value Reference Range Interpretation Comments POC IONIZED CALCIUM (test code = 1.22 MMOL/L 1.12-1.32 N POCCA) POC LACTIC [id number] 14:42:00 Test Item Value Reference Range Interpretation Comments POC LACTIC ACID (test code = POCLAC) mmol/l 0.9-1.7 POC [id number] 14:42:00 Test Item Value Reference Range Interpretation Comments POC GLUCOSE (test code = POCGLU) 174 MG/DL 70-110 H POC ARTERIAL BLOOD [id number] 14:42:00 Test Item Value Reference Range Interpretation Comments POC ARTERIAL BLOOD GAS PH (test 7.345 7.35-7.45 L code = POCPHA) POC ARTERIAL BLOOD GAS PCO2 41.9 mmHg 35.0-45 N (test code = WABVND8K) POC TCO2 ARTERIAL (test code = 24.2 POCTCO2) POC ARTERIAL BLOOD GAS PO2 (test 65.8 mmHg 80-100.0 L code = GQXMX7E) POC HCO3 ARTERIAL (test code = 22.9 MMOL/L 22.0-26.0 N RYMCPQ0B) POC BASE EXCESS (test code = -2.8 MMOL/L -4.0-4.0 N POCBEA) POC O2 SATURATION (test code = 91.5 % 90-100 N POCO2S) FIO2 (test code = FIO2A) 50 % PaO2/FiO2 (test code = PWY2DUE5) 131.60 mm/Hg ABG DELIVERY (test code = FRANCISCO) Adult Vent ABG VENT MODE (test code = CPAP/PS MODEA) ABG VENT RESP RATE (test code = 24 /MIN RRA) ABG TIDAL VOLUME (test code = 740 ml TVA) ABG PEEP (test code = PEEPA) 5 cmH2O ABG PRESSURE SUPPORT (test code 5 cmH2O = PSABG) ABG SITE (test code = SITEA) Art Line [id number] 14:42:00 Test Item Value Reference Range Interpretation Comments SODIUM (test code = NA/ABG) 146 MEQ/L 134-147 N [id number] 14:42:00 Test Item Value Reference Range Interpretation Comments POTASSIUM (test code = K/ABG) 3.5 MEQ/L 3.4-5.0 N [id number] 14:42:00 Test Item Value Reference Range Interpretation Comments CHLORIDE (test code = CL/ABG) MEQ/L 100-108 CREATININE [id number] 14:42:00 Test Item Value Reference Range Interpretation Comments CREATININE ABG (test code = CREAABG) mg/dL 0.8-1.3 [id number] 14:42:00 Test Item Value Reference Range Interpretation Comments HEMOGLOBIN (test code = HGB/ABG) G/DL 12.5-16.9 [id number] 14:42:00 Test Item Value Reference Range Interpretation Comments HEMATOCRIT (test code = HCT/ABG) % 37.5-50.7 POC IONIZED [id number] 14:42:00 Test Item Value Reference Range Interpretation Comments POC IONIZED CALCIUM (test code = 1.22 MMOL/L 1.12-1.32 N POCCA) POC LACTIC [id number] 14:42:00 Test Item Value Reference Range Interpretation Comments POC LACTIC ACID (test code = 7.1 mmol/l 0.9-1.7 HH POCLAC) POC [id number] 14:42:00 Test Item Value Reference Range Interpretation Comments POC GLUCOSE (test code = POCGLU) 174 MG/DL 70-110 H POC ARTERIAL BLOOD [id number] 14:42:00 Test Item Value Reference Range Interpretation Comments POC ARTERIAL BLOOD GAS PH (test 7.345 7.35-7.45 L code = POCPHA) POC ARTERIAL BLOOD GAS PCO2 41.9 mmHg 35.0-45 N (test code = SLXMYP4Y) POC TCO2 ARTERIAL (test code = 24.2 POCTCO2) POC ARTERIAL BLOOD GAS PO2 (test 65.8 mmHg 80-100.0 L code = XFFOV1H) POC HCO3 ARTERIAL (test code = 22.9 MMOL/L 22.0-26.0 N VGMFTU7X) POC BASE EXCESS (test code = -2.8 MMOL/L -4.0-4.0 N POCBEA) POC O2 SATURATION (test code = 91.5 % 90-100 N POCO2S) FIO2 (test code = FIO2A) 50 % PaO2/FiO2 (test code = CNS8OSD5) 131.60 mm/Hg ABG DELIVERY (test code = FRANCISCO) Adult Vent ABG VENT MODE (test code = CPAP/PS MODEA) ABG VENT RESP RATE (test code = 24 /MIN RRA) ABG TIDAL VOLUME (test code = 740 ml TVA) ABG PEEP (test code = PEEPA) 5 cmH2O ABG PRESSURE SUPPORT (test code 5 cmH2O = PSABG) ABG SITE (test code = SITEA) Art Line [id number] 14:42:00 Test Item Value Reference Range Interpretation Comments SODIUM (test code = NA/ABG) 146 MEQ/L 134-147 N [id number] 14:42:00 Test Item Value Reference Range Interpretation Comments POTASSIUM (test code = K/ABG) 3.5 MEQ/L 3.4-5.0 N [id number] 14:42:00 Test Item Value Reference Range Interpretation Comments CHLORIDE (test code = CL/ABG) MEQ/L 100-108 CREATININE [id number] 14:42:00 Test Item Value Reference Range Interpretation Comments CREATININE ABG (test code = CREAABG) mg/dL 0.8-1.3 [id number] 14:42:00 Test Item Value Reference Range Interpretation Comments HEMOGLOBIN (test code = HGB/ABG) G/DL 12.5-16.9 [id number] 14:42:00 Test Item Value Reference Range Interpretation Comments HEMATOCRIT (test code = HCT/ABG) 35 % 37.5-50.7 L POC IONIZED [id number] 14:42:00 Test Item Value Reference Range Interpretation Comments POC IONIZED CALCIUM (test code = 1.22 MMOL/L 1.12-1.32 N POCCA) POC LACTIC [id number] 14:42:00 Test Item Value Reference Range Interpretation Comments POC LACTIC ACID (test code = 7.1 mmol/l 0.9-1.7 HH POCLAC) POC [id number] 14:42:00 Test Item Value Reference Range Interpretation Comments POC GLUCOSE (test code = POCGLU) 174 MG/DL 70-110 H POC ARTERIAL BLOOD [id number] 14:42:00 Test Item Value Reference Range Interpretation Comments POC ARTERIAL BLOOD GAS PH (test 7.345 7.35-7.45 L code = POCPHA) POC ARTERIAL BLOOD GAS PCO2 41.9 mmHg 35.0-45 N (test code = ZYGJOU8L) POC TCO2 ARTERIAL (test code = 24.2 POCTCO2) POC ARTERIAL BLOOD GAS PO2 (test 65.8 mmHg 80-100.0 L code = VQATR1Z) POC HCO3 ARTERIAL (test code = 22.9 MMOL/L 22.0-26.0 N BFIKNO5N) POC BASE EXCESS (test code = -2.8 MMOL/L -4.0-4.0 N POCBEA) POC O2 SATURATION (test code = 91.5 % 90-100 N POCO2S) FIO2 (test code = FIO2A) 50 % PaO2/FiO2 (test code = EOR2QJR6) 131.60 mm/Hg ABG DELIVERY (test code = FRANCISCO) Adult Vent ABG VENT MODE (test code = CPAP/PS MODEA) ABG VENT RESP RATE (test code = 24 /MIN RRA) ABG TIDAL VOLUME (test code = 740 ml TVA) ABG PEEP (test code = PEEPA) 5 cmH2O ABG PRESSURE SUPPORT (test code 5 cmH2O = PSABG) ABG SITE (test code = SITEA) Art Line [id number] 14:42:00 Test Item Value Reference Range Interpretation Comments SODIUM (test code = NA/ABG) 146 MEQ/L 134-147 N [id number] 14:42:00 Test Item Value Reference Range Interpretation Comments POTASSIUM (test code = K/ABG) 3.5 MEQ/L 3.4-5.0 N [id number] 14:42:00 Test Item Value Reference Range Interpretation Comments CHLORIDE (test code = CL/ABG) MEQ/L 100-108 CREATININE [id number] 14:42:00 Test Item Value Reference Range Interpretation Comments CREATININE ABG (test code = CREAABG) mg/dL 0.8-1.3 [id number] 14:42:00 Test Item Value Reference Range Interpretation Comments HEMOGLOBIN (test code = HGB/ABG) 11.8 G/DL 12.5-16.9 L [id number] 14:42:00 Test Item Value Reference Range Interpretation Comments HEMATOCRIT (test code = HCT/ABG) 35 % 37.5-50.7 L POC IONIZED [id number] 14:42:00 Test Item Value Reference Range Interpretation Comments POC IONIZED CALCIUM (test code = 1.22 MMOL/L 1.12-1.32 N POCCA) POC LACTIC [id number] 14:42:00 Test Item Value Reference Range Interpretation Comments POC LACTIC ACID (test code = 7.1 mmol/l 0.9-1.7 HH POCLAC) POC [id number] 14:42:00 Test Item Value Reference Range Interpretation Comments POC GLUCOSE (test code = POCGLU) 174 MG/DL 70-110 H POC ARTERIAL BLOOD [id number] 14:42:00 Test Item Value Reference Range Interpretation Comments POC ARTERIAL BLOOD GAS PH (test 7.345 7.35-7.45 L code = POCPHA) POC ARTERIAL BLOOD GAS PCO2 41.9 mmHg 35.0-45 N (test code = VFXIFZ1P) POC TCO2 ARTERIAL (test code = 24.2 POCTCO2) POC ARTERIAL BLOOD GAS PO2 (test 65.8 mmHg 80-100.0 L code = RTZSM9U) POC HCO3 ARTERIAL (test code = 22.9 MMOL/L 22.0-26.0 N ZMKGNX3L) POC BASE EXCESS (test code = -2.8 MMOL/L -4.0-4.0 N POCBEA) POC O2 SATURATION (test code = 91.5 % 90-100 N POCO2S) FIO2 (test code = FIO2A) 50 % PaO2/FiO2 (test code = TKM8AWC5) 131.60 mm/Hg ABG DELIVERY (test code = FRANCISCO) Adult Vent ABG VENT MODE (test code = CPAP/PS MODEA) ABG VENT RESP RATE (test code = 24 /MIN RRA) ABG TIDAL VOLUME (test code = 740 ml TVA) ABG PEEP (test code = PEEPA) 5 cmH2O ABG PRESSURE SUPPORT (test code 5 cmH2O = PSABG) ABG SITE (test code = SITEA) Art Line [id number] 14:42:00 Test Item Value Reference Range Interpretation Comments SODIUM (test code = NA/ABG) 146 MEQ/L 134-147 N [id number] 14:42:00 Test Item Value Reference Range Interpretation Comments POTASSIUM (test code = K/ABG) 3.5 MEQ/L 3.4-5.0 N [id number] 14:42:00 Test Item Value Reference Range Interpretation Comments CHLORIDE (test code = CL/ABG) 107 MEQ/L 100-108 N CREATININE [id number] 14:42:00 Test Item Value Reference Range Interpretation Comments CREATININE ABG (test code = CREAABG) mg/dL 0.8-1.3 [id number] 14:42:00 Test Item Value Reference Range Interpretation Comments HEMOGLOBIN (test code = HGB/ABG) 11.8 G/DL 12.5-16.9 L [id number] 14:42:00 Test Item Value Reference Range Interpretation Comments HEMATOCRIT (test code = HCT/ABG) 35 % 37.5-50.7 L POC IONIZED [id number] 14:42:00 Test Item Value Reference Range Interpretation Comments POC IONIZED CALCIUM (test code = 1.22 MMOL/L 1.12-1.32 N POCCA) POC LACTIC [id number] 14:42:00 Test Item Value Reference Range Interpretation Comments POC LACTIC ACID (test code = 7.1 mmol/l 0.9-1.7 HH POCLAC) POC [id number] 14:42:00 Test Item Value Reference Range Interpretation Comments POC GLUCOSE (test code = POCGLU) 174 MG/DL 70-110 H POC ARTERIAL BLOOD [id number] 14:42:00 Test Item Value Reference Range Interpretation Comments POC ARTERIAL BLOOD GAS PH (test 7.345 7.35-7.45 L code = POCPHA) POC ARTERIAL BLOOD GAS PCO2 41.9 mmHg 35.0-45 N (test code = OMHYIJ4Y) POC TCO2 ARTERIAL (test code = 24.2 POCTCO2) POC ARTERIAL BLOOD GAS PO2 (test 65.8 mmHg 80-100.0 L code = RXLIF3N) POC HCO3 ARTERIAL (test code = 22.9 MMOL/L 22.0-26.0 N XNFJKI4B) POC BASE EXCESS (test code = -2.8 MMOL/L -4.0-4.0 N POCBEA) POC O2 SATURATION (test code = 91.5 % 90-100 N POCO2S) FIO2 (test code = FIO2A) 50 % PaO2/FiO2 (test code = VDI9HXU6) 131.60 mm/Hg ABG DELIVERY (test code = FRANCISCO) Adult Vent ABG VENT MODE (test code = CPAP/PS MODEA) ABG VENT RESP RATE (test code = 24 /MIN RRA) ABG TIDAL VOLUME (test code = 740 ml TVA) ABG PEEP (test code = PEEPA) 5 cmH2O ABG PRESSURE SUPPORT (test code 5 cmH2O = PSABG) ABG SITE (test code = SITEA) Art Line [id number] 14:42:00 Test Item Value Reference Range Interpretation Comments SODIUM (test code = NA/ABG) 146 MEQ/L 134-147 N [id number] 14:42:00 Test Item Value Reference Range Interpretation Comments POTASSIUM (test code = K/ABG) 3.5 MEQ/L 3.4-5.0 N [id number] 14:42:00 Test Item Value Reference Range Interpretation Comments CHLORIDE (test code = CL/ABG) 107 MEQ/L 100-108 N CREATININE [id number] 14:42:00 Test Item Value Reference Range Interpretation Comments CREATININE ABG (test code = 1.2 mg/dL 0.8-1.3 CREAABG) [id number] 14:42:00 Test Item Value Reference Range Interpretation Comments HEMOGLOBIN (test code = HGB/ABG) 11.8 G/DL 12.5-16.9 L [id number] 14:42:00 Test Item Value Reference Range Interpretation Comments HEMATOCRIT (test code = HCT/ABG) 35 % 37.5-50.7 L POC IONIZED [id number] 14:42:00 Test Item Value Reference Range Interpretation Comments POC IONIZED CALCIUM (test code = 1.22 MMOL/L 1.12-1.32 N POCCA) POC LACTIC [id number] 14:42:00 Test Item Value Reference Range Interpretation Comments POC LACTIC ACID (test code = 7.1 mmol/l 0.9-1.7 HH POCLAC) POC [id number] 14:42:00 Test Item Value Reference Range Interpretation Comments POC GLUCOSE (test code = POCGLU) 174 MG/DL 70-110 H - XR CHEST 1 [id number] 14:24:00 [facility] : 1955 Sex: M FAX: Kevin Hinkle NP [place]: St: ADM FAX: Jae Watkins [phone] FAX: Avel Latham MD [phone] FAX: Wilbert ArmasbrynKaruna jean baptisterakan Moseley [phone] Name: SONYA MINAYA [facility] : 1955 Age/S: 65/M [address] [place] [address] Unit #: [id number] Loc: .[address] [place] [id number] Phys: Kevin Hinkle NP Acct: [id number] Dis Date: Status: ADM IN PHONE #: [phone] Exam Date: 12/23/2020 1337 FAX #: [phone] Reason: Cardiac Surgery Post Op EXAMS: CPT CODE: [id number] XR CHEST 1 V [id number] PROCEDURE: CHEST S CINTHYA VIEW INDICATION: Cardiac Surgery Post Op; . COMPARISON: 12/21/2020 FINDINGS: TUBES AND LINES: Endotracheal tube approximately 3.5 cm above the hal. Enteric tube tip at the level of proximal stomach. Mediastinal and left thoracostomy drains in place. Right IJ sheath in place. CHEST: Lung volumes are diminished. Indistinct opacities in the perihilar regions bilateral. Ill-defined increased opacity left base obscuring the left hemidiaphragm. There is no pneumothorax. Enlarged postoperative cardiomediastinal silhouette with indistinct margins. Sternotomy wires are intact. IMPRESSION: 1. Postoperative chest with diminished lung volumes, indistinct perihilar opacities and left basilar pleural-parenchymal disease. Indistinct appearance of the postoperative cardiac silhouette. SL: [id number] at 1424 Reported and signed by: Mikey Torres M.D. CC: Kevin Hinkle NP; Jae Worthington MD; Avel Banerjee MD; Zara Kumari MD Technologist: RED Lujan) Trnscrd Date/Time/By: 12/23/2020 (2066) : By: [email or web address] Orig Print D/T: S: 12/23/2020 (3870) PAGE 1 Signed ReportLACTIC [id number] 13:55:00 Test Item Value Reference Range Interpretation Comments LACTIC ACID (test 5.1 mmol/L 0.4-1.9 HH Critical r esult called code = LACT) to [employer] VALERIOLAB.DVW at 13 12/23/20Nurse r ead back result and tech confirmed it's correct? Y BASIC METABOLIC [id number] 13:55:00 Test Item Value Reference Range Interpretation Comments SODIUM (test code = NA) 146 mEq/L 134-147 N POTASSIUM (test code = 3.5 mEq/L 3.4-5.0 N K) CHLORIDE (test code = 112 mEq/L 100-108 H CL) CARBON DIOXIDE (test 24 mEq/l 21-33 N code = CO2) ANION GAP (test code = 14 0-20 N GAP) GLUCOSE (test code = 154 mg/dL 70-110 H GLU) BLOOD UREA NITROGEN 15 mg/dL 7-18 N (test code = BUN) GLOMERULAR FILTRATION 66.8 80-90 L Units of measure = RATE (test code = GFR) ml/mi n/1.73 m2 CREATININE (test code = 1.1 mg/dL 0.6-1.3 N CREAT) CALCIUM (test code = 9.0 mg/dL 8.0-10.5 N CA) COMMENTS: On [id number] 13:55:00 Test Item Value Reference Range Interpretation Comments MAGNESIUM (test code = MAG) 2.61 mg/dL 1.80-2.40 H COMMENTS: On arrivalCBC W/AUTO [id number] 13:41:00 Test Item Value Reference Range Interpretation Comments WHITE BLOOD CELL (test code = 16.4 x10 3/uL 4.5-11.0 H WBC) RED BLOOD CELL (test code = 3.84 x10 6/uL 4.00-5.60 L RBC) HEMOGLOBIN (test code = HGB) 11.1 g/dL 12.5-16.9 L HEMATOCRIT (test code = HCT) 34.7 % 37.5-50.7 L MEAN CELL VOLUME (test code = 90.4 fL 81.0-99.0 N MCV) MEAN CELL HGB (test code = 28.9 pg 27.0-33.0 N MCH) MEAN CELL HGB CONCETRATION 32.0 g/dL 33.0-37.0 L (test code = MCHC) RED CELL DISTRIBUTION WIDTH CV 15.4 % 11.5-14.5 H (test code = RDW) RED CELL DISTRIBUTION WIDTH SD 51.1 fL 37.0-54.0 N (test code = RDW-SD) PLATELET COUNT (test code = 211 x10 3/uL 150-400 N PLT) MEAN PLATELET VOLUME (test 10.5 fL 7.0-9.0 H code = MPV) NEUTROPHIL % (test code = NT%) 77.0 % 56.0-77.0 N IMMATURE GRANULOCYTE % (test 0.9 % 0.0-2.0 N code = IG%) LYMPHOCYTE % (test code = LY%) 19.4 % 14.0-32.0 N MONOCYTE % (test code = MO%) 2.2 % 4.8-9.0 L EOSINOPHIL % (test code = EO%) 0.2 % 0.3-3.7 L BASOPHIL % (test code = BA%) 0.3 % 0.0-2.0 N NUCLEATED RBC % (test code = 0.0 % 0-0 N NRBC%) NEUTROPHIL # (test code = NT#) 12.58 x10 3/uL 2.0-7.6 H IMMATURE GRANULOCYTE # (test 0.15 x10 3/uL 0.00-0.03 H code = IG#) LYMPHOCYTE # (test code = LY#) 3.18 x10 3/uL 1.0-3.8 N MONOCYTE # (test code = MO#) 0.36 x10 3/uL 0.1-0.8 N EOSINOPHIL # (test code = EO#) 0.04 x10 3/uL 0.0-0.2 N BASOPHIL # (test code = BA#) 0.05 x10 3/uL 0.0-0.2 N NUCLEATED RBC # (test code = 0.00 x10 3/uL 0.0-0.1 N NRBC#) MANUAL DIFF REQUIRED (test NO code = MDIFF) CBC W/AUTO [id number] 13:40:00 Test Item Value Reference Range Interpretation Comments WHITE BLOOD CELL (test code = x10 3/uL 4.5-11.0 WBC) RED BLOOD CELL (test code = RBC) x10 6/uL 4.00-5.60 HEMOGLOBIN (test code = HGB) g/dL 12.5-16.9 HEMATOCRIT (test code = HCT) % 37.5-50.7 MEAN CELL VOLUME (test code = fL 81.0-99.0 MCV) MEAN CELL HGB (test code = MCH) pg 27.0-33.0 MEAN CELL HGB CONCETRATION (test g/dL 33.0-37.0 code = MCHC) RED CELL DISTRIBUTION WIDTH CV % 11.5-14.5 (test code = RDW) PLATELET COUNT (test code = PLT) 211 x10 3/uL 150-400 N NEUTROPHIL % (test code = NT%) % 56.0-77.0 LYMPHOCYTE % (test code = LY%) % 14.0-32.0 NEUTROPHIL # (test code = NT#) x10 3/uL 2.0-7.6 LYMPHOCYTE # (test code = LY#) x10 3/uL 1.0-3.8 MANUAL DIFF REQUIRED (test code = MDIFF) POC IONIZED [id number] 13:14:00 Test Item Value Reference Range Interpretation Comments POC IONIZED CALCIUM (test code = 1.11 MMOL/L 1.12-1.32 L POCCA) POC LACTIC [id number] 13:14:00 Test Item Value Reference Range Interpretation Comments POC LACTIC ACID (test code = 4.2 mmol/l 0.9-1.7 HH POCLAC) POC [id number] 13:14:00 Test Item Value Reference Range Interpretation Comments POC GLUCOSE (test code = POCGLU) 122 MG/DL 70-110 H POC ARTERIAL BLOOD [id number] 13:14:00 Test Item Value Reference Range Interpretation Comments POC ARTERIAL BLOOD GAS PH (test 7.308 7.35-7.45 L code = POCPHA) POC ARTERIAL BLOOD GAS PCO2 (test 39.4 mmHg 35.0-45 N code = [id number]) POC TCO2 ARTERIAL (test code = 20.9 POCTCO2) POC ARTERIAL BLOOD GAS PO2 (test 51.5 mmHg 80-100.0 L code = [id number]) POC HCO3 ARTERIAL (test code = 19.7 MMOL/L 22.0-26.0 L [id number]) POC BASE EXCESS (test code = -6.6 MMOL/L -4.0-4.0 L POCBEA) POC O2 SATURATION (test code = 82.7 % 90-100 L POCO2S) FIO2 (test code = FIO2A) 90 % PaO2/FiO2 (test code = [id number]) 57.22 mm/Hg ABG DELIVERY (test code = FRANCISCO) Adult Vent ABG VENT MODE (test code = MODEA) CPAP/PS ABG PEEP (test code = PEEPA) 5 cmH2O ABG PRESSURE SUPPORT (test code = 5 cmH2O PSABG) ABG SITE (test code = SITEA) Art Line [id number] 13:14:00 Test Item Value Reference Range Interpretation Comments SODIUM (test code = NA/ABG) 147 MEQ/L 134-147 N [id number] 13:14:00 Test Item Value Reference Range Interpretation Comments POTASSIUM (test code = K/ABG) 2.7 MEQ/L 3.4-5.0 LL [id number] 13:14:00 Test Item Value Reference Range Interpretation Comments CHLORIDE (test code = CL/ABG) MEQ/L 100-108 CREATININE [id number] 13:14:00 Test Item Value Reference Range Interpretation Comments CREATININE ABG (test code = CREAABG) mg/dL 0.8-1.3 [id number] 13:14:00 Test Item Value Reference Range Interpretation Comments HEMOGLOBIN (test code = HGB/ABG) 8.8 G/DL 12.5-16.9 L [id number] 13:14:00 Test Item Value Reference Range Interpretation Comments HEMATOCRIT (test code = HCT/ABG) 26 % 37.5-50.7 L POC IONIZED [id number] 13:14:00 Test Item Value Reference Range Interpretation Comments POC IONIZED CALCIUM (test code = 1.11 MMOL/L 1.12-1.32 L POCCA) POC LACTIC [id number] 13:14:00 Test Item Value Reference Range Interpretation Comments POC LACTIC ACID (test code = 4.2 mmol/l 0.9-1.7 HH POCLAC) POC [id number] 13:14:00 Test Item Value Reference Range Interpretation Comments POC GLUCOSE (test code = POCGLU) 122 MG/DL 70-110 H POC ARTERIAL BLOOD [id number] 13:14:00 Test Item Value Reference Range Interpretation Comments POC ARTERIAL BLOOD GAS PH (test 7.308 7.35-7.45 L code = POCPHA) POC ARTERIAL BLOOD GAS PCO2 (test 39.4 mmHg 35.0-45 N code = TRJAKL6Z) POC TCO2 ARTERIAL (test code = 20.9 POCTCO2) POC ARTERIAL BLOOD GAS PO2 (test 51.5 mmHg 80-100.0 L code = RXDRU9P) POC HCO3 ARTERIAL (test code = 19.7 MMOL/L 22.0-26.0 L EZZZFN9S) POC BASE EXCESS (test code = -6.6 MMOL/L -4.0-4.0 L POCBEA) POC O2 SATURATION (test code = 82.7 % 90-100 L POCO2S) FIO2 (test code = FIO2A) 90 % PaO2/FiO2 (test code = [id number]) 57.22 mm/Hg ABG DELIVERY (test code = FRANCISCO) Adult Vent ABG VENT MODE (test code = MODEA) CPAP/PS ABG PEEP (test code = PEEPA) 5 cmH2O ABG PRESSURE SUPPORT (test code = 5 cmH2O PSABG) ABG SITE (test code = SITEA) Art Line [id number] 13:14:00 Test Item Value Reference Range Interpretation Comments SODIUM (test code = NA/ABG) 147 MEQ/L 134-147 N [id number] 13:14:00 Test Item Value Reference Range Interpretation Comments POTASSIUM (test code = K/ABG) 2.7 MEQ/L 3.4-5.0 LL [id number] 13:14:00 Test Item Value Reference Range Interpretation Comments CHLORIDE (test code = CL/ABG) 113 MEQ/L 100-108 H CREATININE [id number] 13:14:00 Test Item Value Reference Range Interpretation Comments CREATININE ABG (test code = CREAABG) mg/dL 0.8-1.3 [id number] 13:14:00 Test Item Value Reference Range Interpretation Comments HEMOGLOBIN (test code = HGB/ABG) 8.8 G/DL 12.5-16.9 L [id number] 13:14:00 Test Item Value Reference Range Interpretation Comments HEMATOCRIT (test code = HCT/ABG) 26 % 37.5-50.7 L POC IONIZED [id number] 13:14:00 Test Item Value Reference Range Interpretation Comments POC IONIZED CALCIUM (test code = 1.11 MMOL/L 1.12-1.32 L POCCA) POC LACTIC [id number] 13:14:00 Test Item Value Reference Range Interpretation Comments POC LACTIC ACID (test code = 4.2 mmol/l 0.9-1.7 HH POCLAC) POC [id number] 13:14:00 Test Item Value Reference Range Interpretation Comments POC GLUCOSE (test code = POCGLU) 122 MG/DL 70-110 H POC ARTERIAL BLOOD [id number] 13:14:00 Test Item Value Reference Range Interpretation Comments POC ARTERIAL BLOOD GAS PH (test 7.308 7.35-7.45 L code = POCPHA) POC ARTERIAL BLOOD GAS PCO2 (test 39.4 mmHg 35.0-45 N code = [id number]) POC TCO2 ARTERIAL (test code = 20.9 POCTCO2) POC ARTERIAL BLOOD GAS PO2 (test 51.5 mmHg 80-100.0 L code = GXPSO0G) POC HCO3 ARTERIAL (test code = 19.7 MMOL/L 22.0-26.0 L UILCEU0S) POC BASE EXCESS (test code = -6.6 MMOL/L -4.0-4.0 L POCBEA) POC O2 SATURATION (test code = 82.7 % 90-100 L POCO2S) FIO2 (test code = FIO2A) 90 % PaO2/FiO2 (test code = [id number]) 57.22 mm/Hg ABG DELIVERY (test code = FRANCISCO) Adult Vent ABG VENT MODE (test code = MODEA) CPAP/PS ABG PEEP (test code = PEEPA) 5 cmH2O ABG PRESSURE SUPPORT (test code = 5 cmH2O PSABG) ABG SITE (test code = SITEA) Art Line [id number] 13:14:00 Test Item Value Reference Range Interpretation Comments SODIUM (test code = NA/ABG) 147 MEQ/L 134-147 N [id number] 13:14:00 Test Item Value Reference Range Interpretation Comments POTASSIUM (test code = K/ABG) 2.7 MEQ/L 3.4-5.0 LL [id number] 13:14:00 Test Item Value Reference Range Interpretation Comments CHLORIDE (test code = CL/ABG) 113 MEQ/L 100-108 H CREATININE [id number] 13:14:00 Test Item Value Reference Range Interpretation Comments CREATININE ABG (test code = 0.9 mg/dL 0.8-1.3 N CREAABG) [id number] 13:14:00 Test Item Value Reference Range Interpretation Comments HEMOGLOBIN (test code = HGB/ABG) 8.8 G/DL 12.5-16.9 L [id number] 13:14:00 Test Item Value Reference Range Interpretation Comments HEMATOCRIT (test code = HCT/ABG) 26 % 37.5-50.7 L POC IONIZED [id number] 13:14:00 Test Item Value Reference Range Interpretation Comments POC IONIZED CALCIUM (test code = 1.11 MMOL/L 1.12-1.32 L POCCA) POC LACTIC [id number] 13:14:00 Test Item Value Reference Range Interpretation Comments POC LACTIC ACID (test code = 4.2 mmol/l 0.9-1.7 HH POCLAC) POC [id number] 13:14:00 Test Item Value Reference Range Interpretation Comments POC GLUCOSE (test code = POCGLU) 122 MG/DL 70-110 H POC ARTERIAL BLOOD [id number] 13:14:00 Test Item Value Reference Range Interpretation Comments POC ARTERIAL BLOOD GAS PH (test 7.308 7.35-7.45 L code = POCPHA) POC ARTERIAL BLOOD GAS PCO2 (test 39.4 mmHg 35.0-45 N code = LLNVJT9S) POC TCO2 ARTERIAL (test code = 20.9 POCTCO2) POC ARTERIAL BLOOD GAS PO2 (test 51.5 mmHg 80-100.0 L code = RVNGD1K) POC HCO3 ARTERIAL (test code = 19.7 MMOL/L 22.0-26.0 L ELDLSI9T) POC BASE EXCESS (test code = -6.6 MMOL/L -4.0-4.0 L POCBEA) POC O2 SATURATION (test code = 82.7 % 90-100 L POCO2S) FIO2 (test code = FIO2A) 90 % PaO2/FiO2 (test code = UUR1TGV9) 57.22 mm/Hg ABG DELIVERY (test code = FRANCISCO) Adult Vent ABG VENT MODE (test code = MODEA) CPAP/PS ABG PEEP (test code = PEEPA) 5 cmH2O ABG PRESSURE SUPPORT (test code = 5 cmH2O PSABG) ABG SITE (test code = SITEA) Art Line [id number] 13:14:00 Test Item Value Reference Range Interpretation Comments SODIUM (test code = NA/ABG) MEQ/L 134-147 [id number] 13:14:00 Test Item Value Reference Range Interpretation Comments POTASSIUM (test code = K/ABG) MEQ/L 3.4-5.0 [id number] 13:14:00 Test Item Value Reference Range Interpretation Comments CHLORIDE (test code = CL/ABG) MEQ/L 100-108 CREATININE [id number] 13:14:00 Test Item Value Reference Range Interpretation Comments CREATININE ABG (test code = CREAABG) mg/dL 0.8-1.3 [id number] 13:14:00 Test Item Value Reference Range Interpretation Comments HEMOGLOBIN (test code = HGB/ABG) G/DL 12.5-16.9 [id number] 13:14:00 Test Item Value Reference Range Interpretation Comments HEMATOCRIT (test code = HCT/ABG) % 37.5-50.7 POC IONIZED [id number] 13:14:00 Test Item Value Reference Range Interpretation Comments POC IONIZED CALCIUM (test code = MMOL/L 1.12-1.32 POCCA) POC LACTIC [id number] 13:14:00 Test Item Value Reference Range Interpretation Comments POC LACTIC ACID (test code = POCLAC) mmol/l 0.9-1.7 POC [id number] 13:14:00 Test Item Value Reference Range Interpretation Comments POC GLUCOSE (test code = POCGLU) MG/DL 70-110 POC ARTERIAL BLOOD [id number] 13:14:00 Test Item Value Reference Range Interpretation Comments POC ARTERIAL BLOOD GAS PH (test 7.308 7.35-7.45 L code = POCPHA) POC ARTERIAL BLOOD GAS PCO2 (test 39.4 mmHg 35.0-45 N code = OSLYMY3D) POC TCO2 ARTERIAL (test code = 20.9 POCTCO2) POC ARTERIAL BLOOD GAS PO2 (test 51.5 mmHg 80-100.0 L code = MZLMG7G) POC HCO3 ARTERIAL (test code = 19.7 MMOL/L 22.0-26.0 L ZKTJQZ6L) POC BASE EXCESS (test code = -6.6 MMOL/L -4.0-4.0 L POCBEA) POC O2 SATURATION (test code = 82.7 % 90-100 L POCO2S) FIO2 (test code = FIO2A) 90 % PaO2/FiO2 (test code = PFO3NKW3) 57.22 mm/Hg ABG DELIVERY (test code = FRANCISCO) Adult Vent ABG VENT MODE (test code = MODEA) CPAP/PS ABG PEEP (test code = PEEPA) 5 cmH2O ABG PRESSURE SUPPORT (test code = 5 cmH2O PSABG) ABG SITE (test code = SITEA) Art Line [id number] 13:14:00 Test Item Value Reference Range Interpretation Comments SODIUM (test code = NA/ABG) 147 MEQ/L 134-147 N [id number] 13:14:00 Test Item Value Reference Range Interpretation Comments POTASSIUM (test code = K/ABG) MEQ/L 3.4-5.0 [id number] 13:14:00 Test Item Value Reference Range Interpretation Comments CHLORIDE (test code = CL/ABG) MEQ/L 100-108 CREATININE [id number] 13:14:00 Test Item Value Reference Range Interpretation Comments CREATININE ABG (test code = CREAABG) mg/dL 0.8-1.3 [id number] 13:14:00 Test Item Value Reference Range Interpretation Comments HEMOGLOBIN (test code = HGB/ABG) G/DL 12.5-16.9 [id number] 13:14:00 Test Item Value Reference Range Interpretation Comments HEMATOCRIT (test code = HCT/ABG) % 37.5-50.7 POC IONIZED [id number] 13:14:00 Test Item Value Reference Range Interpretation Comments POC IONIZED CALCIUM (test code = MMOL/L 1.12-1.32 POCCA) POC LACTIC [id number] 13:14:00 Test Item Value Reference Range Interpretation Comments POC LACTIC ACID (test code = POCLAC) mmol/l 0.9-1.7 POC [id number] 13:14:00 Test Item Value Reference Range Interpretation Comments POC GLUCOSE (test code = POCGLU) MG/DL 70-110 POC ARTERIAL BLOOD [id number] 13:14:00 Test Item Value Reference Range Interpretation Comments POC ARTERIAL BLOOD GAS PH (test 7.308 7.35-7.45 L code = POCPHA) POC ARTERIAL BLOOD GAS PCO2 (test 39.4 mmHg 35.0-45 N code = PRTACG3V) POC TCO2 ARTERIAL (test code = 20.9 POCTCO2) POC ARTERIAL BLOOD GAS PO2 (test 51.5 mmHg 80-100.0 L code = WBGFV2Q) POC HCO3 ARTERIAL (test code = 19.7 MMOL/L 22.0-26.0 L MZBDRD9I) POC BASE EXCESS (test code = -6.6 MMOL/L -4.0-4.0 L POCBEA) POC O2 SATURATION (test code = 82.7 % 90-100 L POCO2S) FIO2 (test code = FIO2A) 90 % PaO2/FiO2 (test code = [id number]) 57.22 mm/Hg ABG DELIVERY (test code = FRANCISCO) Adult Vent ABG VENT MODE (test code = MODEA) CPAP/PS ABG PEEP (test code = PEEPA) 5 cmH2O ABG PRESSURE SUPPORT (test code = 5 cmH2O PSABG) ABG SITE (test code = SITEA) Art Line [id number] 13:14:00 Test Item Value Reference Range Interpretation Comments SODIUM (test code = NA/ABG) 147 MEQ/L 134-147 N [id number] 13:14:00 Test Item Value Reference Range Interpretation Comments POTASSIUM (test code = K/ABG) 2.7 MEQ/L 3.4-5.0 LL [id number] 13:14:00 Test Item Value Reference Range Interpretation Comments CHLORIDE (test code = CL/ABG) MEQ/L 100-108 CREATININE [id number] 13:14:00 Test Item Value Reference Range Interpretation Comments CREATININE ABG (test code = CREAABG) mg/dL 0.8-1.3 [id number] 13:14:00 Test Item Value Reference Range Interpretation Comments HEMOGLOBIN (test code = HGB/ABG) G/DL 12.5-16.9 [id number] 13:14:00 Test Item Value Reference Range Interpretation Comments HEMATOCRIT (test code = HCT/ABG) % 37.5-50.7 POC IONIZED [id number] 13:14:00 Test Item Value Reference Range Interpretation Comments POC IONIZED CALCIUM (test code = MMOL/L 1.12-1.32 POCCA) POC LACTIC [id number] 13:14:00 Test Item Value Reference Range Interpretation Comments POC LACTIC ACID (test code = POCLAC) mmol/l 0.9-1.7 POC [id number] 13:14:00 Test Item Value Reference Range Interpretation Comments POC GLUCOSE (test code = POCGLU) MG/DL 70-110 POC ARTERIAL BLOOD [id number] 13:14:00 Test Item Value Reference Range Interpretation Comments POC ARTERIAL BLOOD GAS PH (test 7.308 7.35-7.45 L code = POCPHA) POC ARTERIAL BLOOD GAS PCO2 (test 39.4 mmHg 35.0-45 N code = QLLWRR2X) POC TCO2 ARTERIAL (test code = 20.9 POCTCO2) POC ARTERIAL BLOOD GAS PO2 (test 51.5 mmHg 80-100.0 L code = RNOBI9S) POC HCO3 ARTERIAL (test code = 19.7 MMOL/L 22.0-26.0 L XRUMVS5C) POC BASE EXCESS (test code = -6.6 MMOL/L -4.0-4.0 L POCBEA) POC O2 SATURATION (test code = 82.7 % 90-100 L POCO2S) FIO2 (test code = FIO2A) 90 % PaO2/FiO2 (test code = OHB5SNW3) 57.22 mm/Hg ABG DELIVERY (test code = FRANCISCO) Adult Vent ABG VENT MODE (test code = MODEA) CPAP/PS ABG PEEP (test code = PEEPA) 5 cmH2O ABG PRESSURE SUPPORT (test code = 5 cmH2O PSABG) ABG SITE (test code = SITEA) Art Line [id number] 13:14:00 Test Item Value Reference Range Interpretation Comments SODIUM (test code = NA/ABG) 147 MEQ/L 134-147 N [id number] 13:14:00 Test Item Value Reference Range Interpretation Comments POTASSIUM (test code = K/ABG) 2.7 MEQ/L 3.4-5.0 LL [id number] 13:14:00 Test Item Value Reference Range Interpretation Comments CHLORIDE (test code = CL/ABG) MEQ/L 100-108 CREATININE [id number] 13:14:00 Test Item Value Reference Range Interpretation Comments CREATININE ABG (test code = CREAABG) mg/dL 0.8-1.3 [id number] 13:14:00 Test Item Value Reference Range Interpretation Comments HEMOGLOBIN (test code = HGB/ABG) G/DL 12.5-16.9 [id number] 13:14:00 Test Item Value Reference Range Interpretation Comments HEMATOCRIT (test code = HCT/ABG) % 37.5-50.7 POC IONIZED [id number] 13:14:00 Test Item Value Reference Range Interpretation Comments POC IONIZED CALCIUM (test code = 1.11 MMOL/L 1.12-1.32 L POCCA) POC LACTIC [id number] 13:14:00 Test Item Value Reference Range Interpretation Comments POC LACTIC ACID (test code = POCLAC) mmol/l 0.9-1.7 POC [id number] 13:14:00 Test Item Value Reference Range Interpretation Comments POC GLUCOSE (test code = POCGLU) MG/DL 70-110 POC ARTERIAL BLOOD [id number] 13:14:00 Test Item Value Reference Range Interpretation Comments POC ARTERIAL BLOOD GAS PH (test 7.308 7.35-7.45 L code = POCPHA) POC ARTERIAL BLOOD GAS PCO2 (test 39.4 mmHg 35.0-45 N code = RJTSNN8H) POC TCO2 ARTERIAL (test code = 20.9 POCTCO2) POC ARTERIAL BLOOD GAS PO2 (test 51.5 mmHg 80-100.0 L code = DUBAE5H) POC HCO3 ARTERIAL (test code = 19.7 MMOL/L 22.0-26.0 L MKYZOV8D) POC BASE EXCESS (test code = -6.6 MMOL/L -4.0-4.0 L POCBEA) POC O2 SATURATION (test code = 82.7 % 90-100 L POCO2S) FIO2 (test code = FIO2A) 90 % PaO2/FiO2 (test code = IJI0KBD0) 57.22 mm/Hg ABG DELIVERY (test code = FRANCISCO) Adult Vent ABG VENT MODE (test code = MODEA) CPAP/PS ABG PEEP (test code = PEEPA) 5 cmH2O ABG PRESSURE SUPPORT (test code = 5 cmH2O PSABG) ABG SITE (test code = SITEA) Art Line [id number] 13:14:00 Test Item Value Reference Range Interpretation Comments SODIUM (test code = NA/ABG) 147 MEQ/L 134-147 N [id number] 13:14:00 Test Item Value Reference Range Interpretation Comments POTASSIUM (test code = K/ABG) 2.7 MEQ/L 3.4-5.0 LL [id number] 13:14:00 Test Item Value Reference Range Interpretation Comments CHLORIDE (test code = CL/ABG) MEQ/L 100-108 CREATININE [id number] 13:14:00 Test Item Value Reference Range Interpretation Comments CREATININE ABG (test code = CREAABG) mg/dL 0.8-1.3 [id number] 13:14:00 Test Item Value Reference Range Interpretation Comments HEMOGLOBIN (test code = HGB/ABG) G/DL 12.5-16.9 [id number] 13:14:00 Test Item Value Reference Range Interpretation Comments HEMATOCRIT (test code = HCT/ABG) % 37.5-50.7 POC IONIZED [id number] 13:14:00 Test Item Value Reference Range Interpretation Comments POC IONIZED CALCIUM (test code = 1.11 MMOL/L 1.12-1.32 L POCCA) POC LACTIC [id number] 13:14:00 Test Item Value Reference Range Interpretation Comments POC LACTIC ACID (test code = POCLAC) mmol/l 0.9-1.7 POC [id number] 13:14:00 Test Item Value Reference Range Interpretation Comments POC GLUCOSE (test code = POCGLU) 122 MG/DL 70-110 H POC ARTERIAL BLOOD [id number] 13:14:00 Test Item Value Reference Range Interpretation Comments POC ARTERIAL BLOOD GAS PH (test 7.308 7.35-7.45 L code = POCPHA) POC ARTERIAL BLOOD GAS PCO2 (test 39.4 mmHg 35.0-45 N code = HLLIEX8J) POC TCO2 ARTERIAL (test code = 20.9 POCTCO2) POC ARTERIAL BLOOD GAS PO2 (test 51.5 mmHg 80-100.0 L code = WYFID6O) POC HCO3 ARTERIAL (test code = 19.7 MMOL/L 22.0-26.0 L JPJFYB9B) POC BASE EXCESS (test code = -6.6 MMOL/L -4.0-4.0 L POCBEA) POC O2 SATURATION (test code = 82.7 % 90-100 L POCO2S) FIO2 (test code = FIO2A) 90 % PaO2/FiO2 (test code = UXO5DLC9) 57.22 mm/Hg ABG DELIVERY (test code = FRANCISCO) Adult Vent ABG VENT MODE (test code = MODEA) CPAP/PS ABG PEEP (test code = PEEPA) 5 cmH2O ABG PRESSURE SUPPORT (test code = 5 cmH2O PSABG) ABG SITE (test code = SITEA) Art Line [id number] 13:14:00 Test Item Value Reference Range Interpretation Comments SODIUM (test code = NA/ABG) 147 MEQ/L 134-147 N [id number] 13:14:00 Test Item Value Reference Range Interpretation Comments POTASSIUM (test code = K/ABG) 2.7 MEQ/L 3.4-5.0 LL [id number] 13:14:00 Test Item Value Reference Range Interpretation Comments CHLORIDE (test code = CL/ABG) MEQ/L 100-108 CREATININE [id number] 13:14:00 Test Item Value Reference Range Interpretation Comments CREATININE ABG (test code = CREAABG) mg/dL 0.8-1.3 [id number] 13:14:00 Test Item Value Reference Range Interpretation Comments HEMOGLOBIN (test code = HGB/ABG) G/DL 12.5-16.9 [id number] 13:14:00 Test Item Value Reference Range Interpretation Comments HEMATOCRIT (test code = HCT/ABG) % 37.5-50.7 POC IONIZED [id number] 13:14:00 Test Item Value Reference Range Interpretation Comments POC IONIZED CALCIUM (test code = 1.11 MMOL/L 1.12-1.32 L POCCA) POC LACTIC [id number] 13:14:00 Test Item Value Reference Range Interpretation Comments POC LACTIC ACID (test code = 4.2 mmol/l 0.9-1.7 HH POCLAC) POC [id number] 13:14:00 Test Item Value Reference Range Interpretation Comments POC GLUCOSE (test code = POCGLU) 122 MG/DL 70-110 H POC ARTERIAL BLOOD [id number] 13:14:00 Test Item Value Reference Range Interpretation Comments POC ARTERIAL BLOOD GAS PH (test 7.308 7.35-7.45 L code = POCPHA) POC ARTERIAL BLOOD GAS PCO2 (test 39.4 mmHg 35.0-45 N code = GTVLNY2N) POC TCO2 ARTERIAL (test code = 20.9 POCTCO2) POC ARTERIAL BLOOD GAS PO2 (test 51.5 mmHg 80-100.0 L code = GMVVN5U) POC HCO3 ARTERIAL (test code = 19.7 MMOL/L 22.0-26.0 L EZKJNV8V) POC BASE EXCESS (test code = -6.6 MMOL/L -4.0-4.0 L POCBEA) POC O2 SATURATION (test code = 82.7 % 90-100 L POCO2S) FIO2 (test code = FIO2A) 90 % PaO2/FiO2 (test code = [id number]) 57.22 mm/Hg ABG DELIVERY (test code = FRANCISCO) Adult Vent ABG VENT MODE (test code = MODEA) CPAP/PS ABG PEEP (test code = PEEPA) 5 cmH2O ABG PRESSURE SUPPORT (test code = 5 cmH2O PSABG) ABG SITE (test code = SITEA) Art Line [id number] 13:14:00 Test Item Value Reference Range Interpretation Comments SODIUM (test code = NA/ABG) 147 MEQ/L 134-147 N [id number] 13:14:00 Test Item Value Reference Range Interpretation Comments POTASSIUM (test code = K/ABG) 2.7 MEQ/L 3.4-5.0 LL [id number] 13:14:00 Test Item Value Reference Range Interpretation Comments CHLORIDE (test code = CL/ABG) MEQ/L 100-108 CREATININE [id number] 13:14:00 Test Item Value Reference Range Interpretation Comments CREATININE ABG (test code = CREAABG) mg/dL 0.8-1.3 [id number] 13:14:00 Test Item Value Reference Range Interpretation Comments HEMOGLOBIN (test code = HGB/ABG) G/DL 12.5-16.9 [id number] 13:14:00 Test Item Value Reference Range Interpretation Comments HEMATOCRIT (test code = HCT/ABG) 26 % 37.5-50.7 L POC ARTERIAL BLOOD [id number] 12:49:00 Test Item Value Reference Range Interpretation Comments POC ARTERIAL BLOOD GAS PH (test 7.355 7.35-7.45 N code = POCPHA) POC ARTERIAL BLOOD GAS PCO2 (test 39.7 mmHg 35.0-45 N code = OJLMOF5L) POC TCO2 ARTERIAL (test code = 23.4 POCTCO2) POC ARTERIAL BLOOD GAS PO2 (test 195.8 mmHg 80-100.0 H code = AIPZK2C) POC HCO3 ARTERIAL (test code = 22.2 MMOL/L 22.0-26.0 N WADZMT1V) POC BASE EXCESS (test code = -3.1 MMOL/L -4.0-4.0 N POCBEA) POC O2 SATURATION (test code = 99.7 % 90-100 N POCO2S) [id number] 12:49:00 Test Item Value Reference Range Interpretation Comments SODIUM (test code = NA/ABG) MEQ/L 134-147 [id number] 12:49:00 Test Item Value Reference Range Interpretation Comments POTASSIUM (test code = K/ABG) MEQ/L 3.4-5.0 [id number] 12:49:00 Test Item Value Reference Range Interpretation Comments CHLORIDE (test code = CL/ABG) MEQ/L 100-108 CREATININE [id number] 12:49:00 Test Item Value Reference Range Interpretation Comments CREATININE ABG (test code = CREAABG) mg/dL 0.8-1.3 [id number] 12:49:00 Test Item Value Reference Range Interpretation Comments HEMOGLOBIN (test code = HGB/ABG) G/DL 12.5-16.9 [id number] 12:49:00 Test Item Value Reference Range Interpretation Comments HEMATOCRIT (test code = HCT/ABG) % 37.5-50.7 POC IONIZED [id number] 12:49:00 Test Item Value Reference Range Interpretation Comments POC IONIZED CALCIUM (test code = MMOL/L 1.12-1.32 POCCA) POC LACTIC [id number] 12:49:00 Test Item Value Reference Range Interpretation Comments POC LACTIC ACID (test code = POCLAC) mmol/l 0.9-1.7 POC [id number] 12:49:00 Test Item Value Reference Range Interpretation Comments POC GLUCOSE (test code = POCGLU) MG/DL 70-110 POC ARTERIAL BLOOD [id number] 12:49:00 Test Item Value Reference Range Interpretation Comments POC ARTERIAL BLOOD GAS PH (test 7.355 7.35-7.45 N code = POCPHA) POC ARTERIAL BLOOD GAS PCO2 (test 39.7 mmHg 35.0-45 N code = [id number]) POC TCO2 ARTERIAL (test code = 23.4 POCTCO2) POC ARTERIAL BLOOD GAS PO2 (test 195.8 mmHg 80-100.0 H code = MSAXZ1Z) POC HCO3 ARTERIAL (test code = 22.2 MMOL/L 22.0-26.0 N [id number]) POC BASE EXCESS (test code = -3.1 MMOL/L -4.0-4.0 N POCBEA) POC O2 SATURATION (test code = 99.7 % 90-100 N POCO2S) [id number] 12:49:00 Test Item Value Reference Range Interpretation Comments SODIUM (test code = NA/ABG) 143 MEQ/L 134-147 N [id number] 12:49:00 Test Item Value Reference Range Interpretation Comments POTASSIUM (test code = K/ABG) MEQ/L 3.4-5.0 [id number] 12:49:00 Test Item Value Reference Range Interpretation Comments CHLORIDE (test code = CL/ABG) MEQ/L 100-108 CREATININE [id number] 12:49:00 Test Item Value Reference Range Interpretation Comments CREATININE ABG (test code = CREAABG) mg/dL 0.8-1.3 [id number] 12:49:00 Test Item Value Reference Range Interpretation Comments HEMOGLOBIN (test code = HGB/ABG) G/DL 12.5-16.9 [id number] 12:49:00 Test Item Value Reference Range Interpretation Comments HEMATOCRIT (test code = HCT/ABG) % 37.5-50.7 POC IONIZED [id number] 12:49:00 Test Item Value Reference Range Interpretation Comments POC IONIZED CALCIUM (test code = MMOL/L 1.12-1.32 POCCA) POC LACTIC [id number] 12:49:00 Test Item Value Reference Range Interpretation Comments POC LACTIC ACID (test code = POCLAC) mmol/l 0.9-1.7 POC [id number] 12:49:00 Test Item Value Reference Range Interpretation Comments POC GLUCOSE (test code = POCGLU) MG/DL 70-110 POC ARTERIAL BLOOD [id number] 12:49:00 Test Item Value Reference Range Interpretation Comments POC ARTERIAL BLOOD GAS PH (test 7.355 7.35-7.45 N code = POCPHA) POC ARTERIAL BLOOD GAS PCO2 (test 39.7 mmHg 35.0-45 N code = [id number]) POC TCO2 ARTERIAL (test code = 23.4 POCTCO2) POC ARTERIAL BLOOD GAS PO2 (test 195.8 mmHg 80-100.0 H code = FQFMY6D) POC HCO3 ARTERIAL (test code = 22.2 MMOL/L 22.0-26.0 N [id number]) POC BASE EXCESS (test code = -3.1 MMOL/L -4.0-4.0 N POCBEA) POC O2 SATURATION (test code = 99.7 % 90-100 N POCO2S) [id number] 12:49:00 Test Item Value Reference Range Interpretation Comments SODIUM (test code = NA/ABG) 143 MEQ/L 134-147 N [id number] 12:49:00 Test Item Value Reference Range Interpretation Comments POTASSIUM (test code = K/ABG) 3.6 MEQ/L 3.4-5.0 N [id number] 12:49:00 Test Item Value Reference Range Interpretation Comments CHLORIDE (test code = CL/ABG) MEQ/L 100-108 CREATININE [id number] 12:49:00 Test Item Value Reference Range Interpretation Comments CREATININE ABG (test code = CREAABG) mg/dL 0.8-1.3 [id number] 12:49:00 Test Item Value Reference Range Interpretation Comments HEMOGLOBIN (test code = HGB/ABG) G/DL 12.5-16.9 [id number] 12:49:00 Test Item Value Reference Range Interpretation Comments HEMATOCRIT (test code = HCT/ABG) % 37.5-50.7 POC IONIZED [id number] 12:49:00 Test Item Value Reference Range Interpretation Comments POC IONIZED CALCIUM (test code = MMOL/L 1.12-1.32 POCCA) POC LACTIC [id number] 12:49:00 Test Item Value Reference Range Interpretation Comments POC LACTIC ACID (test code = POCLAC) mmol/l 0.9-1.7 POC [id number] 12:49:00 Test Item Value Reference Range Interpretation Comments POC GLUCOSE (test code = POCGLU) MG/DL 70-110 POC ARTERIAL BLOOD [id number] 12:49:00 Test Item Value Reference Range Interpretation Comments POC ARTERIAL BLOOD GAS PH (test 7.355 7.35-7.45 N code = POCPHA) POC ARTERIAL BLOOD GAS PCO2 (test 39.7 mmHg 35.0-45 N code = DKQJSA3B) POC TCO2 ARTERIAL (test code = 23.4 POCTCO2) POC ARTERIAL BLOOD GAS PO2 (test 195.8 mmHg 80-100.0 H code = WIUYI8G) POC HCO3 ARTERIAL (test code = 22.2 MMOL/L 22.0-26.0 N MOOJEX1G) POC BASE EXCESS (test code = -3.1 MMOL/L -4.0-4.0 N POCBEA) POC O2 SATURATION (test code = 99.7 % 90-100 N POCO2S) [id number] 12:49:00 Test Item Value Reference Range Interpretation Comments SODIUM (test code = NA/ABG) 143 MEQ/L 134-147 N [id number] 12:49:00 Test Item Value Reference Range Interpretation Comments POTASSIUM (test code = K/ABG) 3.6 MEQ/L 3.4-5.0 N [id number] 12:49:00 Test Item Value Reference Range Interpretation Comments CHLORIDE (test code = CL/ABG) MEQ/L 100-108 CREATININE [id number] 12:49:00 Test Item Value Reference Range Interpretation Comments CREATININE ABG (test code = CREAABG) mg/dL 0.8-1.3 [id number] 12:49:00 Test Item Value Reference Range Interpretation Comments HEMOGLOBIN (test code = HGB/ABG) G/DL 12.5-16.9 [id number] 12:49:00 Test Item Value Reference Range Interpretation Comments HEMATOCRIT (test code = HCT/ABG) % 37.5-50.7 POC IONIZED [id number] 12:49:00 Test Item Value Reference Range Interpretation Comments POC IONIZED CALCIUM (test code = 1.25 MMOL/L 1.12-1.32 N POCCA) POC LACTIC [id number] 12:49:00 Test Item Value Reference Range Interpretation Comments POC LACTIC ACID (test code = POCLAC) mmol/l 0.9-1.7 POC [id number] 12:49:00 Test Item Value Reference Range Interpretation Comments POC GLUCOSE (test code = POCGLU) MG/DL 70-110 POC ARTERIAL BLOOD [id number] 12:49:00 Test Item Value Reference Range Interpretation Comments POC ARTERIAL BLOOD GAS PH (test 7.355 7.35-7.45 N code = POCPHA) POC ARTERIAL BLOOD GAS PCO2 (test 39.7 mmHg 35.0-45 N code = VPILAG9U) POC TCO2 ARTERIAL (test code = 23.4 POCTCO2) POC ARTERIAL BLOOD GAS PO2 (test 195.8 mmHg 80-100.0 H code = XZHEZ5H) POC HCO3 ARTERIAL (test code = 22.2 MMOL/L 22.0-26.0 N GPHCHZ1R) POC BASE EXCESS (test code = -3.1 MMOL/L -4.0-4.0 N POCBEA) POC O2 SATURATION (test code = 99.7 % 90-100 N POCO2S) [id number] 12:49:00 Test Item Value Reference Range Interpretation Comments SODIUM (test code = NA/ABG) 143 MEQ/L 134-147 N [id number] 12:49:00 Test Item Value Reference Range Interpretation Comments POTASSIUM (test code = K/ABG) 3.6 MEQ/L 3.4-5.0 N [id number] 12:49:00 Test Item Value Reference Range Interpretation Comments CHLORIDE (test code = CL/ABG) MEQ/L 100-108 CREATININE [id number] 12:49:00 Test Item Value Reference Range Interpretation Comments CREATININE ABG (test code = CREAABG) mg/dL 0.8-1.3 [id number] 12:49:00 Test Item Value Reference Range Interpretation Comments HEMOGLOBIN (test code = HGB/ABG) G/DL 12.5-16.9 [id number] 12:49:00 Test Item Value Reference Range Interpretation Comments HEMATOCRIT (test code = HCT/ABG) % 37.5-50.7 POC IONIZED [id number] 12:49:00 Test Item Value Reference Range Interpretation Comments POC IONIZED CALCIUM (test code = 1.25 MMOL/L 1.12-1.32 N POCCA) POC LACTIC [id number] 12:49:00 Test Item Value Reference Range Interpretation Comments POC LACTIC ACID (test code = POCLAC) mmol/l 0.9-1.7 POC [id number] 12:49:00 Test Item Value Reference Range Interpretation Comments POC GLUCOSE (test code = POCGLU) 149 MG/DL 70-110 H POC ARTERIAL BLOOD [id number] 12:49:00 Test Item Value Reference Range Interpretation Comments POC ARTERIAL BLOOD GAS PH (test 7.355 7.35-7.45 N code = POCPHA) POC ARTERIAL BLOOD GAS PCO2 (test 39.7 mmHg 35.0-45 N code = RYNSPT3G) POC TCO2 ARTERIAL (test code = 23.4 POCTCO2) POC ARTERIAL BLOOD GAS PO2 (test 195.8 mmHg 80-100.0 H code = LZPDZ3P) POC HCO3 ARTERIAL (test code = 22.2 MMOL/L 22.0-26.0 N UCBFPJ3M) POC BASE EXCESS (test code = -3.1 MMOL/L -4.0-4.0 N POCBEA) POC O2 SATURATION (test code = 99.7 % 90-100 N POCO2S) [id number] 12:49:00 Test Item Value Reference Range Interpretation Comments SODIUM (test code = NA/ABG) 143 MEQ/L 134-147 N [id number] 12:49:00 Test Item Value Reference Range Interpretation Comments POTASSIUM (test code = K/ABG) 3.6 MEQ/L 3.4-5.0 N [id number] 12:49:00 Test Item Value Reference Range Interpretation Comments CHLORIDE (test code = CL/ABG) MEQ/L 100-108 CREATININE [id number] 12:49:00 Test Item Value Reference Range Interpretation Comments CREATININE ABG (test code = CREAABG) mg/dL 0.8-1.3 [id number] 12:49:00 Test Item Value Reference Range Interpretation Comments HEMOGLOBIN (test code = HGB/ABG) G/DL 12.5-16.9 [id number] 12:49:00 Test Item Value Reference Range Interpretation Comments HEMATOCRIT (test code = HCT/ABG) % 37.5-50.7 POC IONIZED [id number] 12:49:00 Test Item Value Reference Range Interpretation Comments POC IONIZED CALCIUM (test code = 1.25 MMOL/L 1.12-1.32 N POCCA) POC LACTIC [id number] 12:49:00 Test Item Value Reference Range Interpretation Comments POC LACTIC ACID (test code = 3.7 mmol/l 0.9-1.7 H POCLAC) POC [id number] 12:49:00 Test Item Value Reference Range Interpretation Comments POC GLUCOSE (test code = POCGLU) 149 MG/DL 70-110 H POC ARTERIAL BLOOD [id number] 12:49:00 Test Item Value Reference Range Interpretation Comments POC ARTERIAL BLOOD GAS PH (test 7.355 7.35-7.45 N code = POCPHA) POC ARTERIAL BLOOD GAS PCO2 (test 39.7 mmHg 35.0-45 N code = WFYVEK9B) POC TCO2 ARTERIAL (test code = 23.4 POCTCO2) POC ARTERIAL BLOOD GAS PO2 (test 195.8 mmHg 80-100.0 H code = VDQFZ7E) POC HCO3 ARTERIAL (test code = 22.2 MMOL/L 22.0-26.0 N XYGWSE5A) POC BASE EXCESS (test code = -3.1 MMOL/L -4.0-4.0 N POCBEA) POC O2 SATURATION (test code = 99.7 % 90-100 N POCO2S) [id number] 12:49:00 Test Item Value Reference Range Interpretation Comments SODIUM (test code = NA/ABG) 143 MEQ/L 134-147 N [id number] 12:49:00 Test Item Value Reference Range Interpretation Comments POTASSIUM (test code = K/ABG) 3.6 MEQ/L 3.4-5.0 N [id number] 12:49:00 Test Item Value Reference Range Interpretation Comments CHLORIDE (test code = CL/ABG) MEQ/L 100-108 CREATININE [id number] 12:49:00 Test Item Value Reference Range Interpretation Comments CREATININE ABG (test code = CREAABG) mg/dL 0.8-1.3 [id number] 12:49:00 Test Item Value Reference Range Interpretation Comments HEMOGLOBIN (test code = HGB/ABG) G/DL 12.5-16.9 [id number] 12:49:00 Test Item Value Reference Range Interpretation Comments HEMATOCRIT (test code = HCT/ABG) 31 % 37.5-50.7 L POC IONIZED [id number] 12:49:00 Test Item Value Reference Range Interpretation Comments POC IONIZED CALCIUM (test code = 1.25 MMOL/L 1.12-1.32 N POCCA) POC LACTIC [id number] 12:49:00 Test Item Value Reference Range Interpretation Comments POC LACTIC ACID (test code = 3.7 mmol/l 0.9-1.7 H POCLAC) POC [id number] 12:49:00 Test Item Value Reference Range Interpretation Comments POC GLUCOSE (test code = POCGLU) 149 MG/DL 70-110 H POC ARTERIAL BLOOD [id number] 12:49:00 Test Item Value Reference Range Interpretation Comments POC ARTERIAL BLOOD GAS PH (test 7.355 7.35-7.45 N code = POCPHA) POC ARTERIAL BLOOD GAS PCO2 (test 39.7 mmHg 35.0-45 N code = BXREZN2U) POC TCO2 ARTERIAL (test code = 23.4 POCTCO2) POC ARTERIAL BLOOD GAS PO2 (test 195.8 mmHg 80-100.0 H code = WMUWK9X) POC HCO3 ARTERIAL (test code = 22.2 MMOL/L 22.0-26.0 N VDUYSJ4R) POC BASE EXCESS (test code = -3.1 MMOL/L -4.0-4.0 N POCBEA) POC O2 SATURATION (test code = 99.7 % 90-100 N POCO2S) [id number] 12:49:00 Test Item Value Reference Range Interpretation Comments SODIUM (test code = NA/ABG) 143 MEQ/L 134-147 N [id number] 12:49:00 Test Item Value Reference Range Interpretation Comments POTASSIUM (test code = K/ABG) 3.6 MEQ/L 3.4-5.0 N [id number] 12:49:00 Test Item Value Reference Range Interpretation Comments CHLORIDE (test code = CL/ABG) MEQ/L 100-108 CREATININE [id number] 12:49:00 Test Item Value Reference Range Interpretation Comments CREATININE ABG (test code = CREAABG) mg/dL 0.8-1.3 [id number] 12:49:00 Test Item Value Reference Range Interpretation Comments HEMOGLOBIN (test code = HGB/ABG) 10.7 G/DL 12.5-16.9 L [id number] 12:49:00 Test Item Value Reference Range Interpretation Comments HEMATOCRIT (test code = HCT/ABG) 31 % 37.5-50.7 L POC IONIZED [id number] 12:49:00 Test Item Value Reference Range Interpretation Comments POC IONIZED CALCIUM (test code = 1.25 MMOL/L 1.12-1.32 N POCCA) POC LACTIC [id number] 12:49:00 Test Item Value Reference Range Interpretation Comments POC LACTIC ACID (test code = 3.7 mmol/l 0.9-1.7 H POCLAC) POC [id number] 12:49:00 Test Item Value Reference Range Interpretation Comments POC GLUCOSE (test code = POCGLU) 149 MG/DL 70-110 H POC ARTERIAL BLOOD [id number] 12:49:00 Test Item Value Reference Range Interpretation Comments POC ARTERIAL BLOOD GAS PH (test 7.355 7.35-7.45 N code = POCPHA) POC ARTERIAL BLOOD GAS PCO2 (test 39.7 mmHg 35.0-45 N code = EAAQFK8G) POC TCO2 ARTERIAL (test code = 23.4 POCTCO2) POC ARTERIAL BLOOD GAS PO2 (test 195.8 mmHg 80-100.0 H code = UXFBW0S) POC HCO3 ARTERIAL (test code = 22.2 MMOL/L 22.0-26.0 N ZHMSSH6M) POC BASE EXCESS (test code = -3.1 MMOL/L -4.0-4.0 N POCBEA) POC O2 SATURATION (test code = 99.7 % 90-100 N POCO2S) [id number] 12:49:00 Test Item Value Reference Range Interpretation Comments SODIUM (test code = NA/ABG) 143 MEQ/L 134-147 N [id number] 12:49:00 Test Item Value Reference Range Interpretation Comments POTASSIUM (test code = K/ABG) 3.6 MEQ/L 3.4-5.0 N [id number] 12:49:00 Test Item Value Reference Range Interpretation Comments CHLORIDE (test code = CL/ABG) 109 MEQ/L 100-108 H CREATININE [id number] 12:49:00 Test Item Value Reference Range Interpretation Comments CREATININE ABG (test code = CREAABG) mg/dL 0.8-1.3 [id number] 12:49:00 Test Item Value Reference Range Interpretation Comments HEMOGLOBIN (test code = HGB/ABG) 10.7 G/DL 12.5-16.9 L [id number] 12:49:00 Test Item Value Reference Range Interpretation Comments HEMATOCRIT (test code = HCT/ABG) 31 % 37.5-50.7 L POC IONIZED [id number] 12:49:00 Test Item Value Reference Range Interpretation Comments POC IONIZED CALCIUM (test code = 1.25 MMOL/L 1.12-1.32 N POCCA) POC LACTIC [id number] 12:49:00 Test Item Value Reference Range Interpretation Comments POC LACTIC ACID (test code = 3.7 mmol/l 0.9-1.7 H POCLAC) POC [id number] 12:49:00 Test Item Value Reference Range Interpretation Comments POC GLUCOSE (test code = POCGLU) 149 MG/DL 70-110 H POC ARTERIAL BLOOD [id number] 12:49:00 Test Item Value Reference Range Interpretation Comments POC ARTERIAL BLOOD GAS PH (test 7.355 7.35-7.45 N code = POCPHA) POC ARTERIAL BLOOD GAS PCO2 (test 39.7 mmHg 35.0-45 N code = NFIMPV4G) POC TCO2 ARTERIAL (test code = 23.4 POCTCO2) POC ARTERIAL BLOOD GAS PO2 (test 195.8 mmHg 80-100.0 H code = RDXNW7K) POC HCO3 ARTERIAL (test code = 22.2 MMOL/L 22.0-26.0 N SGQMDX6J) POC BASE EXCESS (test code = -3.1 MMOL/L -4.0-4.0 N POCBEA) POC O2 SATURATION (test code = 99.7 % 90-100 N POCO2S) [id number] 12:49:00 Test Item Value Reference Range Interpretation Comments SODIUM (test code = NA/ABG) 143 MEQ/L 134-147 N [id number] 12:49:00 Test Item Value Reference Range Interpretation Comments POTASSIUM (test code = K/ABG) 3.6 MEQ/L 3.4-5.0 N [id number] 12:49:00 Test Item Value Reference Range Interpretation Comments CHLORIDE (test code = CL/ABG) 109 MEQ/L 100-108 H CREATININE [id number] 12:49:00 Test Item Value Reference Range Interpretation Comments CREATININE ABG (test code = 0.9 mg/dL 0.8-1.3 N CREAABG) [id number] 12:49:00 Test Item Value Reference Range Interpretation Comments HEMOGLOBIN (test code = HGB/ABG) 10.7 G/DL 12.5-16.9 L [id number] 12:49:00 Test Item Value Reference Range Interpretation Comments HEMATOCRIT (test code = HCT/ABG) 31 % 37.5-50.7 L POC IONIZED [id number] 12:49:00 Test Item Value Reference Range Interpretation Comments POC IONIZED CALCIUM (test code = 1.25 MMOL/L 1.12-1.32 N POCCA) POC LACTIC [id number] 12:49:00 Test Item Value Reference Range Interpretation Comments POC LACTIC ACID (test code = 3.7 mmol/l 0.9-1.7 H POCLAC) POC [id number] 12:49:00 Test Item Value Reference Range Interpretation Comments POC GLUCOSE (test code = POCGLU) 149 MG/DL 70-110 H PROTHROMBIN [id number] 12:23:00 Test Item Value Reference Range Interpretation Comments PROTHROMBIN TIME 15.6 SECONDS 9.3-12.9 H PATIENT (test code = PTP) INTERNATIONAL NORMAL 1.4 0.8-1.2 H TARGET INR BY RATIO (test code = INDICATIO N Indication INR) INR1. Prophylax is of venous thrombos is 2.0 - 3.0 (orthoped ic surgery), Proph ylaxis of venous throm bosis (other than hig h-risk surgery), Treat ment of Deep Vein Thrombosis/Pulm onary Embolism, Preve ntion of systemic emb olism - Tissue heart va lves, Acute Myocardia l Infarction (to prevent systemic emboli sm), Valvular heart disease, Atrial Fibrillation, Bileaflet mecha nical valve in aortic position.2. Mec hanical prosthetic valv es (high risk), 2. 5 - 3.5 Presence of Lup us Anticoagulant o r Antiphospholipi d Antibodies, Pre vention of systemic emb olism - Acute Myocardia l Infarction (to prevent recurrent infar ct). COMMENTS: On arrivalTHROMBOPLASTIN TIME [id number] 12:23:00 Test Item Value Reference Range Interpretation Comments THROMBOPLASTIN TIME 28.2 Seconds 25.0-39.5 N Therape utic Range: PARTIAL (test code = 50.4 - 88.3 Seconds PTT) Effective 01/07/2019 COMMENTS: On arrivalCBC W/AUTO [id number] 12:15:00 Test Item Value Reference Range Interpretation Comments WHITE BLOOD CELL (test code = 17.0 x10 3/uL 4.5-11.0 H WBC) RED BLOOD CELL (test code = 3.46 x10 6/uL 4.00-5.60 L RBC) HEMOGLOBIN (test code = HGB) 10.0 g/dL 12.5-16.9 L HEMATOCRIT (test code = HCT) 31.2 % 37.5-50.7 L MEAN CELL VOLUME (test code = 90.2 fL 81.0-99.0 N MCV) MEAN CELL HGB (test code = 28.9 pg 27.0-33.0 N MCH) MEAN CELL HGB CONCETRATION 32.1 g/dL 33.0-37.0 L (test code = MCHC) RED CELL DISTRIBUTION WIDTH CV 15.3 % 11.5-14.5 H (test code = RDW) RED CELL DISTRIBUTION WIDTH SD 51.2 fL 37.0-54.0 N (test code = RDW-SD) PLATELET COUNT (test code = 208 x10 3/uL 150-400 N PLT) MEAN PLATELET VOLUME (test 10.6 fL 7.0-9.0 H code = MPV) NEUTROPHIL % (test code = NT%) 70.6 % 56.0-77.0 N IMMATURE GRANULOCYTE % (test 1.0 % 0.0-2.0 N code = IG%) LYMPHOCYTE % (test code = LY%) 25.2 % 14.0-32.0 N MONOCYTE % (test code = MO%) 2.6 % 4.8-9.0 L EOSINOPHIL % (test code = EO%) 0.2 % 0.3-3.7 L BASOPHIL % (test code = BA%) 0.4 % 0.0-2.0 N NUCLEATED RBC % (test code = 0.0 % 0-0 N NRBC%) NEUTROPHIL # (test code = NT#) 12.00 x10 3/uL 2.0-7.6 H IMMATURE GRANULOCYTE # (test 0.17 x10 3/uL 0.00-0.03 H code = IG#) LYMPHOCYTE # (test code = LY#) 4.28 x10 3/uL 1.0-3.8 H MONOCYTE # (test code = MO#) 0.45 x10 3/uL 0.1-0.8 N EOSINOPHIL # (test code = EO#) 0.04 x10 3/uL 0.0-0.2 N BASOPHIL # (test code = BA#) 0.06 x10 3/uL 0.0-0.2 N NUCLEATED RBC # (test code = 0.00 x10 3/uL 0.0-0.1 N NRBC#) MANUAL DIFF REQUIRED (test NO code = MDIFF) COMMENTS: On [id number] 12:01:00 Test Item Value Reference Range Interpretation Comments ACT-ISTAT (test code 109 SEC 74-137 N 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 ARTERIAL BLOOD [id number] 11:59:00 Test Item Value Reference Range Interpretation Comments POC ARTERIAL BLOOD GAS PH (test 7.365 7.35-7.45 N code = POCPHA) POC ARTERIAL BLOOD GAS PCO2 (test 41.6 mmHg 35.0-45 N code = ICSDMB6I) POC TCO2 ARTERIAL (test code = 25.1 POCTCO2) POC ARTERIAL BLOOD GAS PO2 (test 82.6 mmHg 80-100.0 N code = TWRXO8B) POC HCO3 ARTERIAL (test code = 23.8 MMOL/L 22.0-26.0 N XWFZZJ5E) POC BASE EXCESS (test code = -1.5 MMOL/L -4.0-4.0 N POCBEA) POC O2 SATURATION (test code = 95.7 % 90-100 N POCO2S) [id number] 11:59:00 Test Item Value Reference Range Interpretation Comments SODIUM (test code = NA/ABG) MEQ/L 134-147 [id number] 11:59:00 Test Item Value Reference Range Interpretation Comments POTASSIUM (test code = K/ABG) MEQ/L 3.4-5.0 [id number] 11:59:00 Test Item Value Reference Range Interpretation Comments CHLORIDE (test code = CL/ABG) MEQ/L 100-108 CREATININE [id number] 11:59:00 Test Item Value Reference Range Interpretation Comments CREATININE ABG (test code = CREAABG) mg/dL 0.8-1.3 [id number] 11:59:00 Test Item Value Reference Range Interpretation Comments HEMOGLOBIN (test code = HGB/ABG) G/DL 12.5-16.9 [id number] 11:59:00 Test Item Value Reference Range Interpretation Comments HEMATOCRIT (test code = HCT/ABG) % 37.5-50.7 POC IONIZED [id number] 11:59:00 Test Item Value Reference Range Interpretation Comments POC IONIZED CALCIUM (test code = MMOL/L 1.12-1.32 POCCA) POC LACTIC [id number] 11:59:00 Test Item Value Reference Range Interpretation Comments POC LACTIC ACID (test code = POCLAC) mmol/l 0.9-1.7 POC [id number] 11:59:00 Test Item Value Reference Range Interpretation Comments POC GLUCOSE (test code = POCGLU) MG/DL 70-110 POC ARTERIAL BLOOD [id number] 11:59:00 Test Item Value Reference Range Interpretation Comments POC ARTERIAL BLOOD GAS PH (test 7.365 7.35-7.45 N code = POCPHA) POC ARTERIAL BLOOD GAS PCO2 (test 41.6 mmHg 35.0-45 N code = MMHPJH6J) POC TCO2 ARTERIAL (test code = 25.1 POCTCO2) POC ARTERIAL BLOOD GAS PO2 (test 82.6 mmHg 80-100.0 N code = BGXYB9V) POC HCO3 ARTERIAL (test code = 23.8 MMOL/L 22.0-26.0 N FIILZQ1G) POC BASE EXCESS (test code = -1.5 MMOL/L -4.0-4.0 N POCBEA) POC O2 SATURATION (test code = 95.7 % 90-100 N POCO2S) [id number] 11:59:00 Test Item Value Reference Range Interpretation Comments SODIUM (test code = NA/ABG) 142 MEQ/L 134-147 N [id number] 11:59:00 Test Item Value Reference Range Interpretation Comments POTASSIUM (test code = K/ABG) MEQ/L 3.4-5.0 [id number] 11:59:00 Test Item Value Reference Range Interpretation Comments CHLORIDE (test code = CL/ABG) MEQ/L 100-108 CREATININE [id number] 11:59:00 Test Item Value Reference Range Interpretation Comments CREATININE ABG (test code = CREAABG) mg/dL 0.8-1.3 [id number] 11:59:00 Test Item Value Reference Range Interpretation Comments HEMOGLOBIN (test code = HGB/ABG) G/DL 12.5-16.9 [id number] 11:59:00 Test Item Value Reference Range Interpretation Comments HEMATOCRIT (test code = HCT/ABG) % 37.5-50.7 POC IONIZED [id number] 11:59:00 Test Item Value Reference Range Interpretation Comments POC IONIZED CALCIUM (test code = MMOL/L 1.12-1.32 POCCA) POC LACTIC [id number] 11:59:00 Test Item Value Reference Range Interpretation Comments POC LACTIC ACID (test code = POCLAC) mmol/l 0.9-1.7 POC [id number] 11:59:00 Test Item Value Reference Range Interpretation Comments POC GLUCOSE (test code = POCGLU) MG/DL 70-110 POC ARTERIAL BLOOD [id number] 11:59:00 Test Item Value Reference Range Interpretation Comments POC ARTERIAL BLOOD GAS PH (test 7.365 7.35-7.45 N code = POCPHA) POC ARTERIAL BLOOD GAS PCO2 (test 41.6 mmHg 35.0-45 N code = FHKKMG9L) POC TCO2 ARTERIAL (test code = 25.1 POCTCO2) POC ARTERIAL BLOOD GAS PO2 (test 82.6 mmHg 80-100.0 N code = JOGYA0A) POC HCO3 ARTERIAL (test code = 23.8 MMOL/L 22.0-26.0 N JQFUJQ4I) POC BASE EXCESS (test code = -1.5 MMOL/L -4.0-4.0 N POCBEA) POC O2 SATURATION (test code = 95.7 % 90-100 N POCO2S) [id number] 11:59:00 Test Item Value Reference Range Interpretation Comments SODIUM (test code = NA/ABG) 142 MEQ/L 134-147 N [id number] 11:59:00 Test Item Value Reference Range Interpretation Comments POTASSIUM (test code = K/ABG) 2.9 MEQ/L 3.4-5.0 L [id number] 11:59:00 Test Item Value Reference Range Interpretation Comments CHLORIDE (test code = CL/ABG) MEQ/L 100-108 CREATININE [id number] 11:59:00 Test Item Value Reference Range Interpretation Comments CREATININE ABG (test code = CREAABG) mg/dL 0.8-1.3 [id number] 11:59:00 Test Item Value Reference Range Interpretation Comments HEMOGLOBIN (test code = HGB/ABG) G/DL 12.5-16.9 [id number] 11:59:00 Test Item Value Reference Range Interpretation Comments HEMATOCRIT (test code = HCT/ABG) % 37.5-50.7 POC IONIZED [id number] 11:59:00 Test Item Value Reference Range Interpretation Comments POC IONIZED CALCIUM (test code = MMOL/L 1.12-1.32 POCCA) POC LACTIC [id number] 11:59:00 Test Item Value Reference Range Interpretation Comments POC LACTIC ACID (test code = POCLAC) mmol/l 0.9-1.7 POC [id number] 11:59:00 Test Item Value Reference Range Interpretation Comments POC GLUCOSE (test code = POCGLU) MG/DL 70-110 POC ARTERIAL BLOOD [id number] 11:59:00 Test Item Value Reference Range Interpretation Comments POC ARTERIAL BLOOD GAS PH (test 7.365 7.35-7.45 N code = POCPHA) POC ARTERIAL BLOOD GAS PCO2 (test 41.6 mmHg 35.0-45 N code = [id number]) POC TCO2 ARTERIAL (test code = 25.1 POCTCO2) POC ARTERIAL BLOOD GAS PO2 (test 82.6 mmHg 80-100.0 N code = [id number]) POC HCO3 ARTERIAL (test code = 23.8 MMOL/L 22.0-26.0 N [id number]) POC BASE EXCESS (test code = -1.5 MMOL/L -4.0-4.0 N POCBEA) POC O2 SATURATION (test code = 95.7 % 90-100 N POCO2S) [id number] 11:59:00 Test Item Value Reference Range Interpretation Comments SODIUM (test code = NA/ABG) 142 MEQ/L 134-147 N [id number] 11:59:00 Test Item Value Reference Range Interpretation Comments POTASSIUM (test code = K/ABG) 2.9 MEQ/L 3.4-5.0 L [id number] 11:59:00 Test Item Value Reference Range Interpretation Comments CHLORIDE (test code = CL/ABG) MEQ/L 100-108 CREATININE [id number] 11:59:00 Test Item Value Reference Range Interpretation Comments CREATININE ABG (test code = CREAABG) mg/dL 0.8-1.3 [id number] 11:59:00 Test Item Value Reference Range Interpretation Comments HEMOGLOBIN (test code = HGB/ABG) G/DL 12.5-16.9 [id number] 11:59:00 Test Item Value Reference Range Interpretation Comments HEMATOCRIT (test code = HCT/ABG) % 37.5-50.7 POC IONIZED [id number] 11:59:00 Test Item Value Reference Range Interpretation Comments POC IONIZED CALCIUM (test code = 1.12 MMOL/L 1.12-1.32 N POCCA) POC LACTIC [id number] 11:59:00 Test Item Value Reference Range Interpretation Comments POC LACTIC ACID (test code = POCLAC) mmol/l 0.9-1.7 POC [id number] 11:59:00 Test Item Value Reference Range Interpretation Comments POC GLUCOSE (test code = POCGLU) MG/DL 70-110 POC ARTERIAL BLOOD [id number] 11:59:00 Test Item Value Reference Range Interpretation Comments POC ARTERIAL BLOOD GAS PH (test 7.365 7.35-7.45 N code = POCPHA) POC ARTERIAL BLOOD GAS PCO2 (test 41.6 mmHg 35.0-45 N code = [id number]) POC TCO2 ARTERIAL (test code = 25.1 POCTCO2) POC ARTERIAL BLOOD GAS PO2 (test 82.6 mmHg 80-100.0 N code = QOUCJ1A) POC HCO3 ARTERIAL (test code = 23.8 MMOL/L 22.0-26.0 N [id number]) POC BASE EXCESS (test code = -1.5 MMOL/L -4.0-4.0 N POCBEA) POC O2 SATURATION (test code = 95.7 % 90-100 N POCO2S) [id number] 11:59:00 Test Item Value Reference Range Interpretation Comments SODIUM (test code = NA/ABG) 142 MEQ/L 134-147 N [id number] 11:59:00 Test Item Value Reference Range Interpretation Comments POTASSIUM (test code = K/ABG) 2.9 MEQ/L 3.4-5.0 L [id number] 11:59:00 Test Item Value Reference Range Interpretation Comments CHLORIDE (test code = CL/ABG) MEQ/L 100-108 CREATININE [id number] 11:59:00 Test Item Value Reference Range Interpretation Comments CREATININE ABG (test code = CREAABG) mg/dL 0.8-1.3 [id number] 11:59:00 Test Item Value Reference Range Interpretation Comments HEMOGLOBIN (test code = HGB/ABG) G/DL 12.5-16.9 [id number] 11:59:00 Test Item Value Reference Range Interpretation Comments HEMATOCRIT (test code = HCT/ABG) % 37.5-50.7 POC IONIZED [id number] 11:59:00 Test Item Value Reference Range Interpretation Comments POC IONIZED CALCIUM (test code = 1.12 MMOL/L 1.12-1.32 N POCCA) POC LACTIC [id number] 11:59:00 Test Item Value Reference Range Interpretation Comments POC LACTIC ACID (test code = POCLAC) mmol/l 0.9-1.7 POC [id number] 11:59:00 Test Item Value Reference Range Interpretation Comments POC GLUCOSE (test code = POCGLU) 182 MG/DL 70-110 H POC ARTERIAL BLOOD [id number] 11:59:00 Test Item Value Reference Range Interpretation Comments POC ARTERIAL BLOOD GAS PH (test 7.365 7.35-7.45 N code = POCPHA) POC ARTERIAL BLOOD GAS PCO2 (test 41.6 mmHg 35.0-45 N code = YVXBVO4Z) POC TCO2 ARTERIAL (test code = 25.1 POCTCO2) POC ARTERIAL BLOOD GAS PO2 (test 82.6 mmHg 80-100.0 N code = HVMCE1Z) POC HCO3 ARTERIAL (test code = 23.8 MMOL/L 22.0-26.0 N [id number]) POC BASE EXCESS (test code = -1.5 MMOL/L -4.0-4.0 N POCBEA) POC O2 SATURATION (test code = 95.7 % 90-100 N POCO2S) [id number] 11:59:00 Test Item Value Reference Range Interpretation Comments SODIUM (test code = NA/ABG) 142 MEQ/L 134-147 N [id number] 11:59:00 Test Item Value Reference Range Interpretation Comments POTASSIUM (test code = K/ABG) 2.9 MEQ/L 3.4-5.0 L [id number] 11:59:00 Test Item Value Reference Range Interpretation Comments CHLORIDE (test code = CL/ABG) MEQ/L 100-108 CREATININE [id number] 11:59:00 Test Item Value Reference Range Interpretation Comments CREATININE ABG (test code = CREAABG) mg/dL 0.8-1.3 [id number] 11:59:00 Test Item Value Reference Range Interpretation Comments HEMOGLOBIN (test code = HGB/ABG) G/DL 12.5-16.9 [id number] 11:59:00 Test Item Value Reference Range Interpretation Comments HEMATOCRIT (test code = HCT/ABG) % 37.5-50.7 POC IONIZED [id number] 11:59:00 Test Item Value Reference Range Interpretation Comments POC IONIZED CALCIUM (test code = 1.12 MMOL/L 1.12-1.32 N POCCA) POC LACTIC [id number] 11:59:00 Test Item Value Reference Range Interpretation Comments POC LACTIC ACID (test code = 3.0 mmol/l 0.9-1.7 H POCLAC) POC [id number] 11:59:00 Test Item Value Reference Range Interpretation Comments POC GLUCOSE (test code = POCGLU) 182 MG/DL 70-110 H POC ARTERIAL BLOOD [id number] 11:59:00 Test Item Value Reference Range Interpretation Comments POC ARTERIAL BLOOD GAS PH (test 7.365 7.35-7.45 N code = POCPHA) POC ARTERIAL BLOOD GAS PCO2 (test 41.6 mmHg 35.0-45 N code = HEHLGR8A) POC TCO2 ARTERIAL (test code = 25.1 POCTCO2) POC ARTERIAL BLOOD GAS PO2 (test 82.6 mmHg 80-100.0 N code = WQLFB3H) POC HCO3 ARTERIAL (test code = 23.8 MMOL/L 22.0-26.0 N VWICGZ6L) POC BASE EXCESS (test code = -1.5 MMOL/L -4.0-4.0 N POCBEA) POC O2 SATURATION (test code = 95.7 % 90-100 N POCO2S) [id number] 11:59:00 Test Item Value Reference Range Interpretation Comments SODIUM (test code = NA/ABG) 142 MEQ/L 134-147 N [id number] 11:59:00 Test Item Value Reference Range Interpretation Comments POTASSIUM (test code = K/ABG) 2.9 MEQ/L 3.4-5.0 L [id number] 11:59:00 Test Item Value Reference Range Interpretation Comments CHLORIDE (test code = CL/ABG) MEQ/L 100-108 CREATININE [id number] 11:59:00 Test Item Value Reference Range Interpretation Comments CREATININE ABG (test code = CREAABG) mg/dL 0.8-1.3 [id number] 11:59:00 Test Item Value Reference Range Interpretation Comments HEMOGLOBIN (test code = HGB/ABG) G/DL 12.5-16.9 [id number] 11:59:00 Test Item Value Reference Range Interpretation Comments HEMATOCRIT (test code = HCT/ABG) 30 % 37.5-50.7 L POC IONIZED [id number] 11:59:00 Test Item Value Reference Range Interpretation Comments POC IONIZED CALCIUM (test code = 1.12 MMOL/L 1.12-1.32 N POCCA) POC LACTIC [id number] 11:59:00 Test Item Value Reference Range Interpretation Comments POC LACTIC ACID (test code = 3.0 mmol/l 0.9-1.7 H POCLAC) POC [id number] 11:59:00 Test Item Value Reference Range Interpretation Comments POC GLUCOSE (test code = POCGLU) 182 MG/DL 70-110 H POC ARTERIAL BLOOD [id number] 11:59:00 Test Item Value Reference Range Interpretation Comments POC ARTERIAL BLOOD GAS PH (test 7.365 7.35-7.45 N code = POCPHA) POC ARTERIAL BLOOD GAS PCO2 (test 41.6 mmHg 35.0-45 N code = GKWMGL3S) POC TCO2 ARTERIAL (test code = 25.1 POCTCO2) POC ARTERIAL BLOOD GAS PO2 (test 82.6 mmHg 80-100.0 N code = DLCXM2M) POC HCO3 ARTERIAL (test code = 23.8 MMOL/L 22.0-26.0 N BXCUVD5R) POC BASE EXCESS (test code = -1.5 MMOL/L -4.0-4.0 N POCBEA) POC O2 SATURATION (test code = 95.7 % 90-100 N POCO2S) [id number] 11:59:00 Test Item Value Reference Range Interpretation Comments SODIUM (test code = NA/ABG) 142 MEQ/L 134-147 N [id number] 11:59:00 Test Item Value Reference Range Interpretation Comments POTASSIUM (test code = K/ABG) 2.9 MEQ/L 3.4-5.0 L [id number] 11:59:00 Test Item Value Reference Range Interpretation Comments CHLORIDE (test code = CL/ABG) MEQ/L 100-108 CREATININE [id number] 11:59:00 Test Item Value Reference Range Interpretation Comments CREATININE ABG (test code = CREAABG) mg/dL 0.8-1.3 [id number] 11:59:00 Test Item Value Reference Range Interpretation Comments HEMOGLOBIN (test code = HGB/ABG) 10.0 G/DL 12.5-16.9 L [id number] 11:59:00 Test Item Value Reference Range Interpretation Comments HEMATOCRIT (test code = HCT/ABG) 30 % 37.5-50.7 L POC IONIZED [id number] 11:59:00 Test Item Value Reference Range Interpretation Comments POC IONIZED CALCIUM (test code = 1.12 MMOL/L 1.12-1.32 N POCCA) POC LACTIC [id number] 11:59:00 Test Item Value Reference Range Interpretation Comments POC LACTIC ACID (test code = 3.0 mmol/l 0.9-1.7 H POCLAC) POC [id number] 11:59:00 Test Item Value Reference Range Interpretation Comments POC GLUCOSE (test code = POCGLU) 182 MG/DL 70-110 H POC ARTERIAL BLOOD [id number] 11:59:00 Test Item Value Reference Range Interpretation Comments POC ARTERIAL BLOOD GAS PH (test 7.365 7.35-7.45 N code = POCPHA) POC ARTERIAL BLOOD GAS PCO2 (test 41.6 mmHg 35.0-45 N code = [id number]) POC TCO2 ARTERIAL (test code = 25.1 POCTCO2) POC ARTERIAL BLOOD GAS PO2 (test 82.6 mmHg 80-100.0 N code = VLXQP0N) POC HCO3 ARTERIAL (test code = 23.8 MMOL/L 22.0-26.0 N OGWSVG8N) POC BASE EXCESS (test code = -1.5 MMOL/L -4.0-4.0 N POCBEA) POC O2 SATURATION (test code = 95.7 % 90-100 N POCO2S) [id number] 11:59:00 Test Item Value Reference Range Interpretation Comments SODIUM (test code = NA/ABG) 142 MEQ/L 134-147 N [id number] 11:59:00 Test Item Value Reference Range Interpretation Comments POTASSIUM (test code = K/ABG) 2.9 MEQ/L 3.4-5.0 L [id number] 11:59:00 Test Item Value Reference Range Interpretation Comments CHLORIDE (test code = CL/ABG) 107 MEQ/L 100-108 N CREATININE [id number] 11:59:00 Test Item Value Reference Range Interpretation Comments CREATININE ABG (test code = CREAABG) mg/dL 0.8-1.3 [id number] 11:59:00 Test Item Value Reference Range Interpretation Comments HEMOGLOBIN (test code = HGB/ABG) 10.0 G/DL 12.5-16.9 L [id number] 11:59:00 Test Item Value Reference Range Interpretation Comments HEMATOCRIT (test code = HCT/ABG) 30 % 37.5-50.7 L POC IONIZED [id number] 11:59:00 Test Item Value Reference Range Interpretation Comments POC IONIZED CALCIUM (test code = 1.12 MMOL/L 1.12-1.32 N POCCA) POC LACTIC [id number] 11:59:00 Test Item Value Reference Range Interpretation Comments POC LACTIC ACID (test code = 3.0 mmol/l 0.9-1.7 H POCLAC) POC [id number] 11:59:00 Test Item Value Reference Range Interpretation Comments POC GLUCOSE (test code = POCGLU) 182 MG/DL 70-110 H POC ARTERIAL BLOOD [id number] 11:59:00 Test Item Value Reference Range Interpretation Comments POC ARTERIAL BLOOD GAS PH (test 7.365 7.35-7.45 N code = POCPHA) POC ARTERIAL BLOOD GAS PCO2 (test 41.6 mmHg 35.0-45 N code = KEHZEQ3N) POC TCO2 ARTERIAL (test code = 25.1 POCTCO2) POC ARTERIAL BLOOD GAS PO2 (test 82.6 mmHg 80-100.0 N code = MWCOX7O) POC HCO3 ARTERIAL (test code = 23.8 MMOL/L 22.0-26.0 N LAOYGV0C) POC BASE EXCESS (test code = -1.5 MMOL/L -4.0-4.0 N POCBEA) POC O2 SATURATION (test code = 95.7 % 90-100 N POCO2S) [id number] 11:59:00 Test Item Value Reference Range Interpretation Comments SODIUM (test code = NA/ABG) 142 MEQ/L 134-147 N [id number] 11:59:00 Test Item Value Reference Range Interpretation Comments POTASSIUM (test code = K/ABG) 2.9 MEQ/L 3.4-5.0 L [id number] 11:59:00 Test Item Value Reference Range Interpretation Comments CHLORIDE (test code = CL/ABG) 107 MEQ/L 100-108 N CREATININE [id number] 11:59:00 Test Item Value Reference Range Interpretation Comments CREATININE ABG (test code = 1.1 mg/dL 0.8-1.3 N CREAABG) [id number] 11:59:00 Test Item Value Reference Range Interpretation Comments HEMOGLOBIN (test code = HGB/ABG) 10.0 G/DL 12.5-16.9 L [id number] 11:59:00 Test Item Value Reference Range Interpretation Comments HEMATOCRIT (test code = HCT/ABG) 30 % 37.5-50.7 L POC IONIZED [id number] 11:59:00 Test Item Value Reference Range Interpretation Comments POC IONIZED CALCIUM (test code = 1.12 MMOL/L 1.12-1.32 N POCCA) POC LACTIC [id number] 11:59:00 Test Item Value Reference Range Interpretation Comments POC LACTIC ACID (test code = 3.0 mmol/l 0.9-1.7 H POCLAC) POC [id number] 11:59:00 Test Item Value Reference Range Interpretation Comments POC GLUCOSE (test code = POCGLU) 182 MG/DL 70-110 H [id number] 11:34:00 Test Item Value Reference Range Interpretation Comments ACT-ISTAT (test code 500 SEC 74-137 H 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 ARTERIAL BLOOD [id number] 11:22:00 Test Item Value Reference Range Interpretation Comments POC ARTERIAL BLOOD GAS PH (test 7.398 7.35-7.45 N code = POCPHA) POC ARTERIAL BLOOD GAS PCO2 (test 41.5 mmHg 35.0-45 N code = UJTZDG5G) POC TCO2 ARTERIAL (test code = 26.8 POCTCO2) POC ARTERIAL BLOOD GAS PO2 (test 490.4 mmHg 80-100.0 HH code = APXPS1X) POC HCO3 ARTERIAL (test code = 25.6 MMOL/L 22.0-26.0 N VAUXXC6N) POC BASE EXCESS (test code = 0.6 MMOL/L -4.0-4.0 N POCBEA) POC O2 SATURATION (test code = 100.0 % 90-100 N POCO2S) [id number] 11:22:00 Test Item Value Reference Range Interpretation Comments SODIUM (test code = NA/ABG) MEQ/L 134-147 [id number] 11:22:00 Test Item Value Reference Range Interpretation Comments POTASSIUM (test code = K/ABG) MEQ/L 3.4-5.0 [id number] 11:22:00 Test Item Value Reference Range Interpretation Comments CHLORIDE (test code = CL/ABG) MEQ/L 100-108 CREATININE [id number] 11:22:00 Test Item Value Reference Range Interpretation Comments CREATININE ABG (test code = CREAABG) mg/dL 0.8-1.3 [id number] 11:22:00 Test Item Value Reference Range Interpretation Comments HEMOGLOBIN (test code = HGB/ABG) G/DL 12.5-16.9 [id number] 11:22:00 Test Item Value Reference Range Interpretation Comments HEMATOCRIT (test code = HCT/ABG) % 37.5-50.7 POC IONIZED [id number] 11:22:00 Test Item Value Reference Range Interpretation Comments POC IONIZED CALCIUM (test code = MMOL/L 1.12-1.32 POCCA) POC LACTIC [id number] 11:22:00 Test Item Value Reference Range Interpretation Comments POC LACTIC ACID (test code = POCLAC) mmol/l 0.9-1.7 POC [id number] 11:22:00 Test Item Value Reference Range Interpretation Comments POC GLUCOSE (test code = POCGLU) MG/DL 70-110 POC ARTERIAL BLOOD [id number] 11:22:00 Test Item Value Reference Range Interpretation Comments POC ARTERIAL BLOOD GAS PH (test 7.398 7.35-7.45 N code = POCPHA) POC ARTERIAL BLOOD GAS PCO2 (test 41.5 mmHg 35.0-45 N code = CLGWVO2G) POC TCO2 ARTERIAL (test code = 26.8 POCTCO2) POC ARTERIAL BLOOD GAS PO2 (test 490.4 mmHg 80-100.0 HH code = PJDZT8D) POC HCO3 ARTERIAL (test code = 25.6 MMOL/L 22.0-26.0 N SNSJOY0W) POC BASE EXCESS (test code = 0.6 MMOL/L -4.0-4.0 N POCBEA) POC O2 SATURATION (test code = 100.0 % 90-100 N POCO2S) [id number] 11:22:00 Test Item Value Reference Range Interpretation Comments SODIUM (test code = NA/ABG) 140 MEQ/L 134-147 N [id number] 11:22:00 Test Item Value Reference Range Interpretation Comments POTASSIUM (test code = K/ABG) MEQ/L 3.4-5.0 [id number] 11:22:00 Test Item Value Reference Range Interpretation Comments CHLORIDE (test code = CL/ABG) MEQ/L 100-108 CREATININE [id number] 11:22:00 Test Item Value Reference Range Interpretation Comments CREATININE ABG (test code = CREAABG) mg/dL 0.8-1.3 [id number] 11:22:00 Test Item Value Reference Range Interpretation Comments HEMOGLOBIN (test code = HGB/ABG) G/DL 12.5-16.9 [id number] 11:22:00 Test Item Value Reference Range Interpretation Comments HEMATOCRIT (test code = HCT/ABG) % 37.5-50.7 POC IONIZED [id number] 11:22:00 Test Item Value Reference Range Interpretation Comments POC IONIZED CALCIUM (test code = MMOL/L 1.12-1.32 POCCA) POC LACTIC [id number] 11:22:00 Test Item Value Reference Range Interpretation Comments POC LACTIC ACID (test code = POCLAC) mmol/l 0.9-1.7 POC [id number] 11:22:00 Test Item Value Reference Range Interpretation Comments POC GLUCOSE (test code = POCGLU) MG/DL 70-110 POC ARTERIAL BLOOD [id number] 11:22:00 Test Item Value Reference Range Interpretation Comments POC ARTERIAL BLOOD GAS PH (test 7.398 7.35-7.45 N code = POCPHA) POC ARTERIAL BLOOD GAS PCO2 (test 41.5 mmHg 35.0-45 N code = AFVCSL2Z) POC TCO2 ARTERIAL (test code = 26.8 POCTCO2) POC ARTERIAL BLOOD GAS PO2 (test 490.4 mmHg 80-100.0 HH code = KITNF3K) POC HCO3 ARTERIAL (test code = 25.6 MMOL/L 22.0-26.0 N VOKPUR4X) POC BASE EXCESS (test code = 0.6 MMOL/L -4.0-4.0 N POCBEA) POC O2 SATURATION (test code = 100.0 % 90-100 N POCO2S) [id number] 11:22:00 Test Item Value Reference Range Interpretation Comments SODIUM (test code = NA/ABG) 140 MEQ/L 134-147 N [id number] 11:22:00 Test Item Value Reference Range Interpretation Comments POTASSIUM (test code = K/ABG) 4.1 MEQ/L 3.4-5.0 N [id number] 11:22:00 Test Item Value Reference Range Interpretation Comments CHLORIDE (test code = CL/ABG) MEQ/L 100-108 CREATININE [id number] 11:22:00 Test Item Value Reference Range Interpretation Comments CREATININE ABG (test code = CREAABG) mg/dL 0.8-1.3 [id number] 11:22:00 Test Item Value Reference Range Interpretation Comments HEMOGLOBIN (test code = HGB/ABG) G/DL 12.5-16.9 [id number] 11:22:00 Test Item Value Reference Range Interpretation Comments HEMATOCRIT (test code = HCT/ABG) % 37.5-50.7 POC IONIZED [id number] 11:22:00 Test Item Value Reference Range Interpretation Comments POC IONIZED CALCIUM (test code = MMOL/L 1.12-1.32 POCCA) POC LACTIC [id number] 11:22:00 Test Item Value Reference Range Interpretation Comments POC LACTIC ACID (test code = POCLAC) mmol/l 0.9-1.7 POC [id number] 11:22:00 Test Item Value Reference Range Interpretation Comments POC GLUCOSE (test code = POCGLU) MG/DL 70-110 POC ARTERIAL BLOOD [id number] 11:22:00 Test Item Value Reference Range Interpretation Comments POC ARTERIAL BLOOD GAS PH (test 7.398 7.35-7.45 N code = POCPHA) POC ARTERIAL BLOOD GAS PCO2 (test 41.5 mmHg 35.0-45 N code = ICJMMB5K) POC TCO2 ARTERIAL (test code = 26.8 POCTCO2) POC ARTERIAL BLOOD GAS PO2 (test 490.4 mmHg 80-100.0 HH code = QCVYH3Q) POC HCO3 ARTERIAL (test code = 25.6 MMOL/L 22.0-26.0 N JDTGHY6D) POC BASE EXCESS (test code = 0.6 MMOL/L -4.0-4.0 N POCBEA) POC O2 SATURATION (test code = 100.0 % 90-100 N POCO2S) [id number] 11:22:00 Test Item Value Reference Range Interpretation Comments SODIUM (test code = NA/ABG) 140 MEQ/L 134-147 N [id number] 11:22:00 Test Item Value Reference Range Interpretation Comments POTASSIUM (test code = K/ABG) 4.1 MEQ/L 3.4-5.0 N [id number] 11:22:00 Test Item Value Reference Range Interpretation Comments CHLORIDE (test code = CL/ABG) MEQ/L 100-108 CREATININE [id number] 11:22:00 Test Item Value Reference Range Interpretation Comments CREATININE ABG (test code = CREAABG) mg/dL 0.8-1.3 [id number] 11:22:00 Test Item Value Reference Range Interpretation Comments HEMOGLOBIN (test code = HGB/ABG) G/DL 12.5-16.9 [id number] 11:22:00 Test Item Value Reference Range Interpretation Comments HEMATOCRIT (test code = HCT/ABG) % 37.5-50.7 POC IONIZED [id number] 11:22:00 Test Item Value Reference Range Interpretation Comments POC IONIZED CALCIUM (test code = 1.10 MMOL/L 1.12-1.32 L POCCA) POC LACTIC [id number] 11:22:00 Test Item Value Reference Range Interpretation Comments POC LACTIC ACID (test code = POCLAC) mmol/l 0.9-1.7 POC [id number] 11:22:00 Test Item Value Reference Range Interpretation Comments POC GLUCOSE (test code = POCGLU) MG/DL 70-110 POC ARTERIAL BLOOD [id number] 11:22:00 Test Item Value Reference Range Interpretation Comments POC ARTERIAL BLOOD GAS PH (test 7.398 7.35-7.45 N code = POCPHA) POC ARTERIAL BLOOD GAS PCO2 (test 41.5 mmHg 35.0-45 N code = YRDZOF5Q) POC TCO2 ARTERIAL (test code = 26.8 POCTCO2) POC ARTERIAL BLOOD GAS PO2 (test 490.4 mmHg 80-100.0 HH code = IIZUT9C) POC HCO3 ARTERIAL (test code = 25.6 MMOL/L 22.0-26.0 N CNRGBQ6D) POC BASE EXCESS (test code = 0.6 MMOL/L -4.0-4.0 N POCBEA) POC O2 SATURATION (test code = 100.0 % 90-100 N POCO2S) [id number] 11:22:00 Test Item Value Reference Range Interpretation Comments SODIUM (test code = NA/ABG) 140 MEQ/L 134-147 N [id number] 11:22:00 Test Item Value Reference Range Interpretation Comments POTASSIUM (test code = K/ABG) 4.1 MEQ/L 3.4-5.0 N [id number] 11:22:00 Test Item Value Reference Range Interpretation Comments CHLORIDE (test code = CL/ABG) MEQ/L 100-108 CREATININE [id number] 11:22:00 Test Item Value Reference Range Interpretation Comments CREATININE ABG (test code = CREAABG) mg/dL 0.8-1.3 [id number] 11:22:00 Test Item Value Reference Range Interpretation Comments HEMOGLOBIN (test code = HGB/ABG) G/DL 12.5-16.9 [id number] 11:22:00 Test Item Value Reference Range Interpretation Comments HEMATOCRIT (test code = HCT/ABG) % 37.5-50.7 POC IONIZED [id number] 11:22:00 Test Item Value Reference Range Interpretation Comments POC IONIZED CALCIUM (test code = 1.10 MMOL/L 1.12-1.32 L POCCA) POC LACTIC [id number] 11:22:00 Test Item Value Reference Range Interpretation Comments POC LACTIC ACID (test code = POCLAC) mmol/l 0.9-1.7 POC [id number] 11:22:00 Test Item Value Reference Range Interpretation Comments POC GLUCOSE (test code = POCGLU) 137 MG/DL 70-110 H POC ARTERIAL BLOOD [id number] 11:22:00 Test Item Value Reference Range Interpretation Comments POC ARTERIAL BLOOD GAS PH (test 7.398 7.35-7.45 N code = POCPHA) POC ARTERIAL BLOOD GAS PCO2 (test 41.5 mmHg 35.0-45 N code = SVGKYL0K) POC TCO2 ARTERIAL (test code = 26.8 POCTCO2) POC ARTERIAL BLOOD GAS PO2 (test 490.4 mmHg 80-100.0 HH code = CCBFM1E) POC HCO3 ARTERIAL (test code = 25.6 MMOL/L 22.0-26.0 N NGEVBK7K) POC BASE EXCESS (test code = 0.6 MMOL/L -4.0-4.0 N POCBEA) POC O2 SATURATION (test code = 100.0 % 90-100 N POCO2S) [id number] 11:22:00 Test Item Value Reference Range Interpretation Comments SODIUM (test code = NA/ABG) 140 MEQ/L 134-147 N [id number] 11:22:00 Test Item Value Reference Range Interpretation Comments POTASSIUM (test code = K/ABG) 4.1 MEQ/L 3.4-5.0 N [id number] 11:22:00 Test Item Value Reference Range Interpretation Comments CHLORIDE (test code = CL/ABG) MEQ/L 100-108 CREATININE [id number] 11:22:00 Test Item Value Reference Range Interpretation Comments CREATININE ABG (test code = CREAABG) mg/dL 0.8-1.3 [id number] 11:22:00 Test Item Value Reference Range Interpretation Comments HEMOGLOBIN (test code = HGB/ABG) G/DL 12.5-16.9 [id number] 11:22:00 Test Item Value Reference Range Interpretation Comments HEMATOCRIT (test code = HCT/ABG) % 37.5-50.7 POC IONIZED [id number] 11:22:00 Test Item Value Reference Range Interpretation Comments POC IONIZED CALCIUM (test code = 1.10 MMOL/L 1.12-1.32 L POCCA) POC LACTIC [id number] 11:22:00 Test Item Value Reference Range Interpretation Comments POC LACTIC ACID (test code = 2.0 mmol/l 0.9-1.7 H POCLAC) POC [id number] 11:22:00 Test Item Value Reference Range Interpretation Comments POC GLUCOSE (test code = POCGLU) 137 MG/DL 70-110 H POC ARTERIAL BLOOD [id number] 11:22:00 Test Item Value Reference Range Interpretation Comments POC ARTERIAL BLOOD GAS PH (test 7.398 7.35-7.45 N code = POCPHA) POC ARTERIAL BLOOD GAS PCO2 (test 41.5 mmHg 35.0-45 N code = [id number]) POC TCO2 ARTERIAL (test code = 26.8 POCTCO2) POC ARTERIAL BLOOD GAS PO2 (test 490.4 mmHg 80-100.0 HH code = WCLUG5V) POC HCO3 ARTERIAL (test code = 25.6 MMOL/L 22.0-26.0 N [id number]) POC BASE EXCESS (test code = 0.6 MMOL/L -4.0-4.0 N POCBEA) POC O2 SATURATION (test code = 100.0 % 90-100 N POCO2S) [id number] 11:22:00 Test Item Value Reference Range Interpretation Comments SODIUM (test code = NA/ABG) 140 MEQ/L 134-147 N [id number] 11:22:00 Test Item Value Reference Range Interpretation Comments POTASSIUM (test code = K/ABG) 4.1 MEQ/L 3.4-5.0 N [id number] 11:22:00 Test Item Value Reference Range Interpretation Comments CHLORIDE (test code = CL/ABG) MEQ/L 100-108 CREATININE [id number] 11:22:00 Test Item Value Reference Range Interpretation Comments CREATININE ABG (test code = CREAABG) mg/dL 0.8-1.3 [id number] 11:22:00 Test Item Value Reference Range Interpretation Comments HEMOGLOBIN (test code = HGB/ABG) G/DL 12.5-16.9 [id number] 11:22:00 Test Item Value Reference Range Interpretation Comments HEMATOCRIT (test code = HCT/ABG) 29 % 37.5-50.7 L POC IONIZED [id number] 11:22:00 Test Item Value Reference Range Interpretation Comments POC IONIZED CALCIUM (test code = 1.10 MMOL/L 1.12-1.32 L POCCA) POC LACTIC [id number] 11:22:00 Test Item Value Reference Range Interpretation Comments POC LACTIC ACID (test code = 2.0 mmol/l 0.9-1.7 H POCLAC) POC [id number] 11:22:00 Test Item Value Reference Range Interpretation Comments POC GLUCOSE (test code = POCGLU) 137 MG/DL 70-110 H POC ARTERIAL BLOOD [id number] 11:22:00 Test Item Value Reference Range Interpretation Comments POC ARTERIAL BLOOD GAS PH (test 7.398 7.35-7.45 N code = POCPHA) POC ARTERIAL BLOOD GAS PCO2 (test 41.5 mmHg 35.0-45 N code = [id number]) POC TCO2 ARTERIAL (test code = 26.8 POCTCO2) POC ARTERIAL BLOOD GAS PO2 (test 490.4 mmHg 80-100.0 HH code = GMSZM4R) POC HCO3 ARTERIAL (test code = 25.6 MMOL/L 22.0-26.0 N [id number]) POC BASE EXCESS (test code = 0.6 MMOL/L -4.0-4.0 N POCBEA) POC O2 SATURATION (test code = 100.0 % 90-100 N POCO2S) [id number] 11:22:00 Test Item Value Reference Range Interpretation Comments SODIUM (test code = NA/ABG) 140 MEQ/L 134-147 N [id number] 11:22:00 Test Item Value Reference Range Interpretation Comments POTASSIUM (test code = K/ABG) 4.1 MEQ/L 3.4-5.0 N [id number] 11:22:00 Test Item Value Reference Range Interpretation Comments CHLORIDE (test code = CL/ABG) MEQ/L 100-108 CREATININE [id number] 11:22:00 Test Item Value Reference Range Interpretation Comments CREATININE ABG (test code = CREAABG) mg/dL 0.8-1.3 [id number] 11:22:00 Test Item Value Reference Range Interpretation Comments HEMOGLOBIN (test code = HGB/ABG) 9.9 G/DL 12.5-16.9 L [id number] 11:22:00 Test Item Value Reference Range Interpretation Comments HEMATOCRIT (test code = HCT/ABG) 29 % 37.5-50.7 L POC IONIZED [id number] 11:22:00 Test Item Value Reference Range Interpretation Comments POC IONIZED CALCIUM (test code = 1.10 MMOL/L 1.12-1.32 L POCCA) POC LACTIC [id number] 11:22:00 Test Item Value Reference Range Interpretation Comments POC LACTIC ACID (test code = 2.0 mmol/l 0.9-1.7 H POCLAC) POC [id number] 11:22:00 Test Item Value Reference Range Interpretation Comments POC GLUCOSE (test code = POCGLU) 137 MG/DL 70-110 H POC ARTERIAL BLOOD [id number] 11:22:00 Test Item Value Reference Range Interpretation Comments POC ARTERIAL BLOOD GAS PH (test 7.398 7.35-7.45 N code = POCPHA) POC ARTERIAL BLOOD GAS PCO2 (test 41.5 mmHg 35.0-45 N code = DJALFR0Y) POC TCO2 ARTERIAL (test code = 26.8 POCTCO2) POC ARTERIAL BLOOD GAS PO2 (test 490.4 mmHg 80-100.0 HH code = FYBBH3P) POC HCO3 ARTERIAL (test code = 25.6 MMOL/L 22.0-26.0 N ZPEIQO0F) POC BASE EXCESS (test code = 0.6 MMOL/L -4.0-4.0 N POCBEA) POC O2 SATURATION (test code = 100.0 % 90-100 N POCO2S) [id number] 11:22:00 Test Item Value Reference Range Interpretation Comments SODIUM (test code = NA/ABG) 140 MEQ/L 134-147 N [id number] 11:22:00 Test Item Value Reference Range Interpretation Comments POTASSIUM (test code = K/ABG) 4.1 MEQ/L 3.4-5.0 N [id number] 11:22:00 Test Item Value Reference Range Interpretation Comments CHLORIDE (test code = CL/ABG) 106 MEQ/L 100-108 N CREATININE [id number] 11:22:00 Test Item Value Reference Range Interpretation Comments CREATININE ABG (test code = CREAABG) mg/dL 0.8-1.3 [id number] 11:22:00 Test Item Value Reference Range Interpretation Comments HEMOGLOBIN (test code = HGB/ABG) 9.9 G/DL 12.5-16.9 L [id number] 11:22:00 Test Item Value Reference Range Interpretation Comments HEMATOCRIT (test code = HCT/ABG) 29 % 37.5-50.7 L POC IONIZED [id number] 11:22:00 Test Item Value Reference Range Interpretation Comments POC IONIZED CALCIUM (test code = 1.10 MMOL/L 1.12-1.32 L POCCA) POC LACTIC [id number] 11:22:00 Test Item Value Reference Range Interpretation Comments POC LACTIC ACID (test code = 2.0 mmol/l 0.9-1.7 H POCLAC) POC [id number] 11:22:00 Test Item Value Reference Range Interpretation Comments POC GLUCOSE (test code = POCGLU) 137 MG/DL 70-110 H POC ARTERIAL BLOOD [id number] 11:22:00 Test Item Value Reference Range Interpretation Comments POC ARTERIAL BLOOD GAS PH (test 7.398 7.35-7.45 N code = POCPHA) POC ARTERIAL BLOOD GAS PCO2 (test 41.5 mmHg 35.0-45 N code = GRHNOW1D) POC TCO2 ARTERIAL (test code = 26.8 POCTCO2) POC ARTERIAL BLOOD GAS PO2 (test 490.4 mmHg 80-100.0 HH code = TNGFY9T) POC HCO3 ARTERIAL (test code = 25.6 MMOL/L 22.0-26.0 N ENHPOR7N) POC BASE EXCESS (test code = 0.6 MMOL/L -4.0-4.0 N POCBEA) POC O2 SATURATION (test code = 100.0 % 90-100 N POCO2S) [id number] 11:22:00 Test Item Value Reference Range Interpretation Comments SODIUM (test code = NA/ABG) 140 MEQ/L 134-147 N [id number] 11:22:00 Test Item Value Reference Range Interpretation Comments POTASSIUM (test code = K/ABG) 4.1 MEQ/L 3.4-5.0 N [id number] 11:22:00 Test Item Value Reference Range Interpretation Comments CHLORIDE (test code = CL/ABG) 106 MEQ/L 100-108 N CREATININE [id number] 11:22:00 Test Item Value Reference Range Interpretation Comments CREATININE ABG (test code = 1.0 mg/dL 0.8-1.3 N CREAABG) [id number] 11:22:00 Test Item Value Reference Range Interpretation Comments HEMOGLOBIN (test code = HGB/ABG) 9.9 G/DL 12.5-16.9 L [id number] 11:22:00 Test Item Value Reference Range Interpretation Comments HEMATOCRIT (test code = HCT/ABG) 29 % 37.5-50.7 L POC IONIZED [id number] 11:22:00 Test Item Value Reference Range Interpretation Comments POC IONIZED CALCIUM (test code = 1.10 MMOL/L 1.12-1.32 L POCCA) POC LACTIC [id number] 11:22:00 Test Item Value Reference Range Interpretation Comments POC LACTIC ACID (test code = 2.0 mmol/l 0.9-1.7 H POCLAC) POC [id number] 11:22:00 Test Item Value Reference Range Interpretation Comments POC GLUCOSE (test code = POCGLU) 137 MG/DL 70-110 H [id number] 11:09:00 Test Item Value Reference Range Interpretation Comments ACT-ISTAT (test code 543 SEC 74-137 H 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 ARTERIAL BLOOD [id number] 10:57:00 Test Item Value Reference Range Interpretation Comments POC ARTERIAL BLOOD GAS PH (test 7.422 7.35-7.45 N code = POCPHA) POC ARTERIAL BLOOD GAS PCO2 (test 40.1 mmHg 35.0-45 N code = JFSHWN4K) POC TCO2 ARTERIAL (test code = 27.3 POCTCO2) POC ARTERIAL BLOOD GAS PO2 (test 371.9 mmHg 80-100.0 HH code = OWYMO4I) POC HCO3 ARTERIAL (test code = 26.1 MMOL/L 22.0-26.0 H ARHQHW7F) POC BASE EXCESS (test code = 1.5 MMOL/L -4.0-4.0 N POCBEA) POC O2 SATURATION (test code = 100.0 % 90-100 N POCO2S) [id number] 10:57:00 Test Item Value Reference Range Interpretation Comments SODIUM (test code = NA/ABG) MEQ/L 134-147 [id number] 10:57:00 Test Item Value Reference Range Interpretation Comments POTASSIUM (test code = K/ABG) MEQ/L 3.4-5.0 [id number] 10:57:00 Test Item Value Reference Range Interpretation Comments CHLORIDE (test code = CL/ABG) MEQ/L 100-108 CREATININE [id number] 10:57:00 Test Item Value Reference Range Interpretation Comments CREATININE ABG (test code = CREAABG) mg/dL 0.8-1.3 [id number] 10:57:00 Test Item Value Reference Range Interpretation Comments HEMOGLOBIN (test code = HGB/ABG) G/DL 12.5-16.9 [id number] 10:57:00 Test Item Value Reference Range Interpretation Comments HEMATOCRIT (test code = HCT/ABG) % 37.5-50.7 POC IONIZED [id number] 10:57:00 Test Item Value Reference Range Interpretation Comments POC IONIZED CALCIUM (test code = MMOL/L 1.12-1.32 POCCA) POC LACTIC [id number] 10:57:00 Test Item Value Reference Range Interpretation Comments POC LACTIC ACID (test code = POCLAC) mmol/l 0.9-1.7 POC [id number] 10:57:00 Test Item Value Reference Range Interpretation Comments POC GLUCOSE (test code = POCGLU) MG/DL 70-110 POC ARTERIAL BLOOD [id number] 10:57:00 Test Item Value Reference Range Interpretation Comments POC ARTERIAL BLOOD GAS PH (test 7.422 7.35-7.45 N code = POCPHA) POC ARTERIAL BLOOD GAS PCO2 (test 40.1 mmHg 35.0-45 N code = MDYOPA3X) POC TCO2 ARTERIAL (test code = 27.3 POCTCO2) POC ARTERIAL BLOOD GAS PO2 (test 371.9 mmHg 80-100.0 HH code = DRAUW7T) POC HCO3 ARTERIAL (test code = 26.1 MMOL/L 22.0-26.0 H ZJYNCL9G) POC BASE EXCESS (test code = 1.5 MMOL/L -4.0-4.0 N POCBEA) POC O2 SATURATION (test code = 100.0 % 90-100 N POCO2S) [id number] 10:57:00 Test Item Value Reference Range Interpretation Comments SODIUM (test code = NA/ABG) 140 MEQ/L 134-147 N [id number] 10:57:00 Test Item Value Reference Range Interpretation Comments POTASSIUM (test code = K/ABG) MEQ/L 3.4-5.0 [id number] 10:57:00 Test Item Value Reference Range Interpretation Comments CHLORIDE (test code = CL/ABG) MEQ/L 100-108 CREATININE [id number] 10:57:00 Test Item Value Reference Range Interpretation Comments CREATININE ABG (test code = CREAABG) mg/dL 0.8-1.3 [id number] 10:57:00 Test Item Value Reference Range Interpretation Comments HEMOGLOBIN (test code = HGB/ABG) G/DL 12.5-16.9 [id number] 10:57:00 Test Item Value Reference Range Interpretation Comments HEMATOCRIT (test code = HCT/ABG) % 37.5-50.7 POC IONIZED [id number] 10:57:00 Test Item Value Reference Range Interpretation Comments POC IONIZED CALCIUM (test code = MMOL/L 1.12-1.32 POCCA) POC LACTIC [id number] 10:57:00 Test Item Value Reference Range Interpretation Comments POC LACTIC ACID (test code = POCLAC) mmol/l 0.9-1.7 POC [id number] 10:57:00 Test Item Value Reference Range Interpretation Comments POC GLUCOSE (test code = POCGLU) MG/DL 70-110 POC ARTERIAL BLOOD [id number] 10:57:00 Test Item Value Reference Range Interpretation Comments POC ARTERIAL BLOOD GAS PH (test 7.422 7.35-7.45 N code = POCPHA) POC ARTERIAL BLOOD GAS PCO2 (test 40.1 mmHg 35.0-45 N code = CKULMT9E) POC TCO2 ARTERIAL (test code = 27.3 POCTCO2) POC ARTERIAL BLOOD GAS PO2 (test 371.9 mmHg 80-100.0 HH code = DOQHD6K) POC HCO3 ARTERIAL (test code = 26.1 MMOL/L 22.0-26.0 H EMGBRE3R) POC BASE EXCESS (test code = 1.5 MMOL/L -4.0-4.0 N POCBEA) POC O2 SATURATION (test code = 100.0 % 90-100 N POCO2S) [id number] 10:57:00 Test Item Value Reference Range Interpretation Comments SODIUM (test code = NA/ABG) 140 MEQ/L 134-147 N [id number] 10:57:00 Test Item Value Reference Range Interpretation Comments POTASSIUM (test code = K/ABG) 4.4 MEQ/L 3.4-5.0 N [id number] 10:57:00 Test Item Value Reference Range Interpretation Comments CHLORIDE (test code = CL/ABG) MEQ/L 100-108 CREATININE [id number] 10:57:00 Test Item Value Reference Range Interpretation Comments CREATININE ABG (test code = CREAABG) mg/dL 0.8-1.3 [id number] 10:57:00 Test Item Value Reference Range Interpretation Comments HEMOGLOBIN (test code = HGB/ABG) G/DL 12.5-16.9 [id number] 10:57:00 Test Item Value Reference Range Interpretation Comments HEMATOCRIT (test code = HCT/ABG) % 37.5-50.7 POC IONIZED [id number] 10:57:00 Test Item Value Reference Range Interpretation Comments POC IONIZED CALCIUM (test code = MMOL/L 1.12-1.32 POCCA) POC LACTIC [id number] 10:57:00 Test Item Value Reference Range Interpretation Comments POC LACTIC ACID (test code = POCLAC) mmol/l 0.9-1.7 POC [id number] 10:57:00 Test Item Value Reference Range Interpretation Comments POC GLUCOSE (test code = POCGLU) MG/DL 70-110 POC ARTERIAL BLOOD [id number] 10:57:00 Test Item Value Reference Range Interpretation Comments POC ARTERIAL BLOOD GAS PH (test 7.422 7.35-7.45 N code = POCPHA) POC ARTERIAL BLOOD GAS PCO2 (test 40.1 mmHg 35.0-45 N code = WPZEJW4O) POC TCO2 ARTERIAL (test code = 27.3 POCTCO2) POC ARTERIAL BLOOD GAS PO2 (test 371.9 mmHg 80-100.0 HH code = HBJGU8X) POC HCO3 ARTERIAL (test code = 26.1 MMOL/L 22.0-26.0 H EPODOZ7O) POC BASE EXCESS (test code = 1.5 MMOL/L -4.0-4.0 N POCBEA) POC O2 SATURATION (test code = 100.0 % 90-100 N POCO2S) [id number] 10:57:00 Test Item Value Reference Range Interpretation Comments SODIUM (test code = NA/ABG) 140 MEQ/L 134-147 N [id number] 10:57:00 Test Item Value Reference Range Interpretation Comments POTASSIUM (test code = K/ABG) 4.4 MEQ/L 3.4-5.0 N [id number] 10:57:00 Test Item Value Reference Range Interpretation Comments CHLORIDE (test code = CL/ABG) MEQ/L 100-108 CREATININE [id number] 10:57:00 Test Item Value Reference Range Interpretation Comments CREATININE ABG (test code = CREAABG) mg/dL 0.8-1.3 [id number] 10:57:00 Test Item Value Reference Range Interpretation Comments HEMOGLOBIN (test code = HGB/ABG) G/DL 12.5-16.9 [id number] 10:57:00 Test Item Value Reference Range Interpretation Comments HEMATOCRIT (test code = HCT/ABG) % 37.5-50.7 POC IONIZED [id number] 10:57:00 Test Item Value Reference Range Interpretation Comments POC IONIZED CALCIUM (test code = 1.08 MMOL/L 1.12-1.32 L POCCA) POC LACTIC [id number] 10:57:00 Test Item Value Reference Range Interpretation Comments POC LACTIC ACID (test code = POCLAC) mmol/l 0.9-1.7 POC [id number] 10:57:00 Test Item Value Reference Range Interpretation Comments POC GLUCOSE (test code = POCGLU) MG/DL 70-110 POC ARTERIAL BLOOD [id number] 10:57:00 Test Item Value Reference Range Interpretation Comments POC ARTERIAL BLOOD GAS PH (test 7.422 7.35-7.45 N code = POCPHA) POC ARTERIAL BLOOD GAS PCO2 (test 40.1 mmHg 35.0-45 N code = EWZHBP6D) POC TCO2 ARTERIAL (test code = 27.3 POCTCO2) POC ARTERIAL BLOOD GAS PO2 (test 371.9 mmHg 80-100.0 HH code = BVCUY1O) POC HCO3 ARTERIAL (test code = 26.1 MMOL/L 22.0-26.0 H CWURIL3C) POC BASE EXCESS (test code = 1.5 MMOL/L -4.0-4.0 N POCBEA) POC O2 SATURATION (test code = 100.0 % 90-100 N POCO2S) [id number] 10:57:00 Test Item Value Reference Range Interpretation Comments SODIUM (test code = NA/ABG) 140 MEQ/L 134-147 N [id number] 10:57:00 Test Item Value Reference Range Interpretation Comments POTASSIUM (test code = K/ABG) 4.4 MEQ/L 3.4-5.0 N [id number] 10:57:00 Test Item Value Reference Range Interpretation Comments CHLORIDE (test code = CL/ABG) MEQ/L 100-108 CREATININE [id number] 10:57:00 Test Item Value Reference Range Interpretation Comments CREATININE ABG (test code = CREAABG) mg/dL 0.8-1.3 [id number] 10:57:00 Test Item Value Reference Range Interpretation Comments HEMOGLOBIN (test code = HGB/ABG) G/DL 12.5-16.9 [id number] 10:57:00 Test Item Value Reference Range Interpretation Comments HEMATOCRIT (test code = HCT/ABG) % 37.5-50.7 POC IONIZED [id number] 10:57:00 Test Item Value Reference Range Interpretation Comments POC IONIZED CALCIUM (test code = 1.08 MMOL/L 1.12-1.32 L POCCA) POC LACTIC [id number] 10:57:00 Test Item Value Reference Range Interpretation Comments POC LACTIC ACID (test code = POCLAC) mmol/l 0.9-1.7 POC [id number] 10:57:00 Test Item Value Reference Range Interpretation Comments POC GLUCOSE (test code = POCGLU) 140 MG/DL 70-110 H POC ARTERIAL BLOOD [id number] 10:57:00 Test Item Value Reference Range Interpretation Comments POC ARTERIAL BLOOD GAS PH (test 7.422 7.35-7.45 N code = POCPHA) POC ARTERIAL BLOOD GAS PCO2 (test 40.1 mmHg 35.0-45 N code = QQKODI4H) POC TCO2 ARTERIAL (test code = 27.3 POCTCO2) POC ARTERIAL BLOOD GAS PO2 (test 371.9 mmHg 80-100.0 HH code = ABAHH7Y) POC HCO3 ARTERIAL (test code = 26.1 MMOL/L 22.0-26.0 H KNQAIU7J) POC BASE EXCESS (test code = 1.5 MMOL/L -4.0-4.0 N POCBEA) POC O2 SATURATION (test code = 100.0 % 90-100 N POCO2S) [id number] 10:57:00 Test Item Value Reference Range Interpretation Comments SODIUM (test code = NA/ABG) 140 MEQ/L 134-147 N [id number] 10:57:00 Test Item Value Reference Range Interpretation Comments POTASSIUM (test code = K/ABG) 4.4 MEQ/L 3.4-5.0 N [id number] 10:57:00 Test Item Value Reference Range Interpretation Comments CHLORIDE (test code = CL/ABG) MEQ/L 100-108 CREATININE [id number] 10:57:00 Test Item Value Reference Range Interpretation Comments CREATININE ABG (test code = CREAABG) mg/dL 0.8-1.3 [id number] 10:57:00 Test Item Value Reference Range Interpretation Comments HEMOGLOBIN (test code = HGB/ABG) G/DL 12.5-16.9 [id number] 10:57:00 Test Item Value Reference Range Interpretation Comments HEMATOCRIT (test code = HCT/ABG) % 37.5-50.7 POC IONIZED [id number] 10:57:00 Test Item Value Reference Range Interpretation Comments POC IONIZED CALCIUM (test code = 1.08 MMOL/L 1.12-1.32 L POCCA) POC LACTIC [id number] 10:57:00 Test Item Value Reference Range Interpretation Comments POC LACTIC ACID (test code = 1.8 mmol/l 0.9-1.7 H POCLAC) POC [id number] 10:57:00 Test Item Value Reference Range Interpretation Comments POC GLUCOSE (test code = POCGLU) 140 MG/DL 70-110 H POC ARTERIAL BLOOD [id number] 10:57:00 Test Item Value Reference Range Interpretation Comments POC ARTERIAL BLOOD GAS PH (test 7.422 7.35-7.45 N code = POCPHA) POC ARTERIAL BLOOD GAS PCO2 (test 40.1 mmHg 35.0-45 N code = CGFRVP0O) POC TCO2 ARTERIAL (test code = 27.3 POCTCO2) POC ARTERIAL BLOOD GAS PO2 (test 371.9 mmHg 80-100.0 HH code = VAOUP2I) POC HCO3 ARTERIAL (test code = 26.1 MMOL/L 22.0-26.0 H HAOCHJ4U) POC BASE EXCESS (test code = 1.5 MMOL/L -4.0-4.0 N POCBEA) POC O2 SATURATION (test code = 100.0 % 90-100 N POCO2S) [id number] 10:57:00 Test Item Value Reference Range Interpretation Comments SODIUM (test code = NA/ABG) 140 MEQ/L 134-147 N [id number] 10:57:00 Test Item Value Reference Range Interpretation Comments POTASSIUM (test code = K/ABG) 4.4 MEQ/L 3.4-5.0 N [id number] 10:57:00 Test Item Value Reference Range Interpretation Comments CHLORIDE (test code = CL/ABG) MEQ/L 100-108 CREATININE [id number] 10:57:00 Test Item Value Reference Range Interpretation Comments CREATININE ABG (test code = CREAABG) mg/dL 0.8-1.3 [id number] 10:57:00 Test Item Value Reference Range Interpretation Comments HEMOGLOBIN (test code = HGB/ABG) G/DL 12.5-16.9 [id number] 10:57:00 Test Item Value Reference Range Interpretation Comments HEMATOCRIT (test code = HCT/ABG) 29 % 37.5-50.7 L POC IONIZED [id number] 10:57:00 Test Item Value Reference Range Interpretation Comments POC IONIZED CALCIUM (test code = 1.08 MMOL/L 1.12-1.32 L POCCA) POC LACTIC [id number] 10:57:00 Test Item Value Reference Range Interpretation Comments POC LACTIC ACID (test code = 1.8 mmol/l 0.9-1.7 H POCLAC) POC [id number] 10:57:00 Test Item Value Reference Range Interpretation Comments POC GLUCOSE (test code = POCGLU) 140 MG/DL 70-110 H POC ARTERIAL BLOOD [id number] 10:57:00 Test Item Value Reference Range Interpretation Comments POC ARTERIAL BLOOD GAS PH (test 7.422 7.35-7.45 N code = POCPHA) POC ARTERIAL BLOOD GAS PCO2 (test 40.1 mmHg 35.0-45 N code = RIHTDQ0F) POC TCO2 ARTERIAL (test code = 27.3 POCTCO2) POC ARTERIAL BLOOD GAS PO2 (test 371.9 mmHg 80-100.0 HH code = BVIBH9U) POC HCO3 ARTERIAL (test code = 26.1 MMOL/L 22.0-26.0 H FNGSLY4Z) POC BASE EXCESS (test code = 1.5 MMOL/L -4.0-4.0 N POCBEA) POC O2 SATURATION (test code = 100.0 % 90-100 N POCO2S) [id number] 10:57:00 Test Item Value Reference Range Interpretation Comments SODIUM (test code = NA/ABG) 140 MEQ/L 134-147 N [id number] 10:57:00 Test Item Value Reference Range Interpretation Comments POTASSIUM (test code = K/ABG) 4.4 MEQ/L 3.4-5.0 N [id number] 10:57:00 Test Item Value Reference Range Interpretation Comments CHLORIDE (test code = CL/ABG) MEQ/L 100-108 CREATININE [id number] 10:57:00 Test Item Value Reference Range Interpretation Comments CREATININE ABG (test code = CREAABG) mg/dL 0.8-1.3 [id number] 10:57:00 Test Item Value Reference Range Interpretation Comments HEMOGLOBIN (test code = HGB/ABG) 9.9 G/DL 12.5-16.9 L [id number] 10:57:00 Test Item Value Reference Range Interpretation Comments HEMATOCRIT (test code = HCT/ABG) 29 % 37.5-50.7 L POC IONIZED [id number] 10:57:00 Test Item Value Reference Range Interpretation Comments POC IONIZED CALCIUM (test code = 1.08 MMOL/L 1.12-1.32 L POCCA) POC LACTIC [id number] 10:57:00 Test Item Value Reference Range Interpretation Comments POC LACTIC ACID (test code = 1.8 mmol/l 0.9-1.7 H POCLAC) POC [id number] 10:57:00 Test Item Value Reference Range Interpretation Comments POC GLUCOSE (test code = POCGLU) 140 MG/DL 70-110 H POC ARTERIAL BLOOD [id number] 10:57:00 Test Item Value Reference Range Interpretation Comments POC ARTERIAL BLOOD GAS PH (test 7.422 7.35-7.45 N code = POCPHA) POC ARTERIAL BLOOD GAS PCO2 (test 40.1 mmHg 35.0-45 N code = QWBJFM9E) POC TCO2 ARTERIAL (test code = 27.3 POCTCO2) POC ARTERIAL BLOOD GAS PO2 (test 371.9 mmHg 80-100.0 HH code = YRTWB3I) POC HCO3 ARTERIAL (test code = 26.1 MMOL/L 22.0-26.0 H YKWQQG2N) POC BASE EXCESS (test code = 1.5 MMOL/L -4.0-4.0 N POCBEA) POC O2 SATURATION (test code = 100.0 % 90-100 N POCO2S) [id number] 10:57:00 Test Item Value Reference Range Interpretation Comments SODIUM (test code = NA/ABG) 140 MEQ/L 134-147 N [id number] 10:57:00 Test Item Value Reference Range Interpretation Comments POTASSIUM (test code = K/ABG) 4.4 MEQ/L 3.4-5.0 N [id number] 10:57:00 Test Item Value Reference Range Interpretation Comments CHLORIDE (test code = CL/ABG) 105 MEQ/L 100-108 N CREATININE [id number] 10:57:00 Test Item Value Reference Range Interpretation Comments CREATININE ABG (test code = CREAABG) mg/dL 0.8-1.3 [id number] 10:57:00 Test Item Value Reference Range Interpretation Comments HEMOGLOBIN (test code = HGB/ABG) 9.9 G/DL 12.5-16.9 L [id number] 10:57:00 Test Item Value Reference Range Interpretation Comments HEMATOCRIT (test code = HCT/ABG) 29 % 37.5-50.7 L POC IONIZED [id number] 10:57:00 Test Item Value Reference Range Interpretation Comments POC IONIZED CALCIUM (test code = 1.08 MMOL/L 1.12-1.32 L POCCA) POC LACTIC [id number] 10:57:00 Test Item Value Reference Range Interpretation Comments POC LACTIC ACID (test code = 1.8 mmol/l 0.9-1.7 H POCLAC) POC [id number] 10:57:00 Test Item Value Reference Range Interpretation Comments POC GLUCOSE (test code = POCGLU) 140 MG/DL 70-110 H POC ARTERIAL BLOOD [id number] 10:57:00 Test Item Value Reference Range Interpretation Comments POC ARTERIAL BLOOD GAS PH (test 7.422 7.35-7.45 N code = POCPHA) POC ARTERIAL BLOOD GAS PCO2 (test 40.1 mmHg 35.0-45 N code = HTBALU6B) POC TCO2 ARTERIAL (test code = 27.3 POCTCO2) POC ARTERIAL BLOOD GAS PO2 (test 371.9 mmHg 80-100.0 HH code = KRKLG4C) POC HCO3 ARTERIAL (test code = 26.1 MMOL/L 22.0-26.0 H DOMMWY5Y) POC BASE EXCESS (test code = 1.5 MMOL/L -4.0-4.0 N POCBEA) POC O2 SATURATION (test code = 100.0 % 90-100 N POCO2S) [id number] 10:57:00 Test Item Value Reference Range Interpretation Comments SODIUM (test code = NA/ABG) 140 MEQ/L 134-147 N [id number] 10:57:00 Test Item Value Reference Range Interpretation Comments POTASSIUM (test code = K/ABG) 4.4 MEQ/L 3.4-5.0 N [id number] 10:57:00 Test Item Value Reference Range Interpretation Comments CHLORIDE (test code = CL/ABG) 105 MEQ/L 100-108 N CREATININE [id number] 10:57:00 Test Item Value Reference Range Interpretation Comments CREATININE ABG (test code = 0.9 mg/dL 0.8-1.3 N CREAABG) [id number] 10:57:00 Test Item Value Reference Range Interpretation Comments HEMOGLOBIN (test code = HGB/ABG) 9.9 G/DL 12.5-16.9 L [id number] 10:57:00 Test Item Value Reference Range Interpretation Comments HEMATOCRIT (test code = HCT/ABG) 29 % 37.5-50.7 L POC IONIZED [id number] 10:57:00 Test Item Value Reference Range Interpretation Comments POC IONIZED CALCIUM (test code = 1.08 MMOL/L 1.12-1.32 L POCCA) POC LACTIC [id number] 10:57:00 Test Item Value Reference Range Interpretation Comments POC LACTIC ACID (test code = 1.8 mmol/l 0.9-1.7 H POCLAC) POC [id number] 10:57:00 Test Item Value Reference Range Interpretation Comments POC GLUCOSE (test code = POCGLU) 140 MG/DL 70-110 H [id number] 10:38:00 Test Item Value Reference Range Interpretation Comments ACT-ISTAT (test code 670 SEC 74-137 H 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 ARTERIAL BLOOD [id number] 10:23:00 Test Item Value Reference Range Interpretation Comments POC ARTERIAL BLOOD GAS PH (test 7.421 7.35-7.45 N code = POCPHA) POC ARTERIAL BLOOD GAS PCO2 (test 39.2 mmHg 35.0-45 N code = [id number]) POC TCO2 ARTERIAL (test code = 26.7 POCTCO2) POC ARTERIAL BLOOD GAS PO2 (test 252.2 mmHg 80-100.0 HH code = TVKKH8V) POC HCO3 ARTERIAL (test code = 25.5 MMOL/L 22.0-26.0 N [id number]) POC BASE EXCESS (test code = 1.0 MMOL/L -4.0-4.0 N POCBEA) POC O2 SATURATION (test code = 99.9 % 90-100 N POCO2S) [id number] 10:23:00 Test Item Value Reference Range Interpretation Comments SODIUM (test code = NA/ABG) MEQ/L 134-147 [id number] 10:23:00 Test Item Value Reference Range Interpretation Comments POTASSIUM (test code = K/ABG) MEQ/L 3.4-5.0 [id number] 10:23:00 Test Item Value Reference Range Interpretation Comments CHLORIDE (test code = CL/ABG) MEQ/L 100-108 CREATININE [id number] 10:23:00 Test Item Value Reference Range Interpretation Comments CREATININE ABG (test code = CREAABG) mg/dL 0.8-1.3 [id number] 10:23:00 Test Item Value Reference Range Interpretation Comments HEMOGLOBIN (test code = HGB/ABG) G/DL 12.5-16.9 [id number] 10:23:00 Test Item Value Reference Range Interpretation Comments HEMATOCRIT (test code = HCT/ABG) % 37.5-50.7 POC IONIZED [id number] 10:23:00 Test Item Value Reference Range Interpretation Comments POC IONIZED CALCIUM (test code = MMOL/L 1.12-1.32 POCCA) POC LACTIC [id number] 10:23:00 Test Item Value Reference Range Interpretation Comments POC LACTIC ACID (test code = POCLAC) mmol/l 0.9-1.7 POC [id number] 10:23:00 Test Item Value Reference Range Interpretation Comments POC GLUCOSE (test code = POCGLU) MG/DL 70-110 POC ARTERIAL BLOOD [id number] 10:23:00 Test Item Value Reference Range Interpretation Comments POC ARTERIAL BLOOD GAS PH (test 7.421 7.35-7.45 N code = POCPHA) POC ARTERIAL BLOOD GAS PCO2 (test 39.2 mmHg 35.0-45 N code = KJEFYM6L) POC TCO2 ARTERIAL (test code = 26.7 POCTCO2) POC ARTERIAL BLOOD GAS PO2 (test 252.2 mmHg 80-100.0 HH code = IXMDW0G) POC HCO3 ARTERIAL (test code = 25.5 MMOL/L 22.0-26.0 N UDDUJE1V) POC BASE EXCESS (test code = 1.0 MMOL/L -4.0-4.0 N POCBEA) POC O2 SATURATION (test code = 99.9 % 90-100 N POCO2S) [id number] 10:23:00 Test Item Value Reference Range Interpretation Comments SODIUM (test code = NA/ABG) 139 MEQ/L 134-147 N [id number] 10:23:00 Test Item Value Reference Range Interpretation Comments POTASSIUM (test code = K/ABG) MEQ/L 3.4-5.0 [id number] 10:23:00 Test Item Value Reference Range Interpretation Comments CHLORIDE (test code = CL/ABG) MEQ/L 100-108 CREATININE [id number] 10:23:00 Test Item Value Reference Range Interpretation Comments CREATININE ABG (test code = CREAABG) mg/dL 0.8-1.3 [id number] 10:23:00 Test Item Value Reference Range Interpretation Comments HEMOGLOBIN (test code = HGB/ABG) G/DL 12.5-16.9 [id number] 10:23:00 Test Item Value Reference Range Interpretation Comments HEMATOCRIT (test code = HCT/ABG) % 37.5-50.7 POC IONIZED [id number] 10:23:00 Test Item Value Reference Range Interpretation Comments POC IONIZED CALCIUM (test code = MMOL/L 1.12-1.32 POCCA) POC LACTIC [id number] 10:23:00 Test Item Value Reference Range Interpretation Comments POC LACTIC ACID (test code = POCLAC) mmol/l 0.9-1.7 POC [id number] 10:23:00 Test Item Value Reference Range Interpretation Comments POC GLUCOSE (test code = POCGLU) MG/DL 70-110 POC ARTERIAL BLOOD [id number] 10:23:00 Test Item Value Reference Range Interpretation Comments POC ARTERIAL BLOOD GAS PH (test 7.421 7.35-7.45 N code = POCPHA) POC ARTERIAL BLOOD GAS PCO2 (test 39.2 mmHg 35.0-45 N code = AAUAGX9Q) POC TCO2 ARTERIAL (test code = 26.7 POCTCO2) POC ARTERIAL BLOOD GAS PO2 (test 252.2 mmHg 80-100.0 HH code = FAWSQ3P) POC HCO3 ARTERIAL (test code = 25.5 MMOL/L 22.0-26.0 N FMFPMR4D) POC BASE EXCESS (test code = 1.0 MMOL/L -4.0-4.0 N POCBEA) POC O2 SATURATION (test code = 99.9 % 90-100 N POCO2S) [id number] 10:23:00 Test Item Value Reference Range Interpretation Comments SODIUM (test code = NA/ABG) 139 MEQ/L 134-147 N [id number] 10:23:00 Test Item Value Reference Range Interpretation Comments POTASSIUM (test code = K/ABG) 4.1 MEQ/L 3.4-5.0 N [id number] 10:23:00 Test Item Value Reference Range Interpretation Comments CHLORIDE (test code = CL/ABG) MEQ/L 100-108 CREATININE [id number] 10:23:00 Test Item Value Reference Range Interpretation Comments CREATININE ABG (test code = CREAABG) mg/dL 0.8-1.3 [id number] 10:23:00 Test Item Value Reference Range Interpretation Comments HEMOGLOBIN (test code = HGB/ABG) G/DL 12.5-16.9 [id number] 10:23:00 Test Item Value Reference Range Interpretation Comments HEMATOCRIT (test code = HCT/ABG) % 37.5-50.7 POC IONIZED [id number] 10:23:00 Test Item Value Reference Range Interpretation Comments POC IONIZED CALCIUM (test code = MMOL/L 1.12-1.32 POCCA) POC LACTIC [id number] 10:23:00 Test Item Value Reference Range Interpretation Comments POC LACTIC ACID (test code = POCLAC) mmol/l 0.9-1.7 POC [id number] 10:23:00 Test Item Value Reference Range Interpretation Comments POC GLUCOSE (test code = POCGLU) MG/DL 70-110 POC ARTERIAL BLOOD [id number] 10:23:00 Test Item Value Reference Range Interpretation Comments POC ARTERIAL BLOOD GAS PH (test 7.421 7.35-7.45 N code = POCPHA) POC ARTERIAL BLOOD GAS PCO2 (test 39.2 mmHg 35.0-45 N code = UQUUHJ3F) POC TCO2 ARTERIAL (test code = 26.7 POCTCO2) POC ARTERIAL BLOOD GAS PO2 (test 252.2 mmHg 80-100.0 HH code = VIYGO0W) POC HCO3 ARTERIAL (test code = 25.5 MMOL/L 22.0-26.0 N HSVHGF5L) POC BASE EXCESS (test code = 1.0 MMOL/L -4.0-4.0 N POCBEA) POC O2 SATURATION (test code = 99.9 % 90-100 N POCO2S) [id number] 10:23:00 Test Item Value Reference Range Interpretation Comments SODIUM (test code = NA/ABG) 139 MEQ/L 134-147 N [id number] 10:23:00 Test Item Value Reference Range Interpretation Comments POTASSIUM (test code = K/ABG) 4.1 MEQ/L 3.4-5.0 N [id number] 10:23:00 Test Item Value Reference Range Interpretation Comments CHLORIDE (test code = CL/ABG) MEQ/L 100-108 CREATININE [id number] 10:23:00 Test Item Value Reference Range Interpretation Comments CREATININE ABG (test code = CREAABG) mg/dL 0.8-1.3 [id number] 10:23:00 Test Item Value Reference Range Interpretation Comments HEMOGLOBIN (test code = HGB/ABG) G/DL 12.5-16.9 [id number] 10:23:00 Test Item Value Reference Range Interpretation Comments HEMATOCRIT (test code = HCT/ABG) % 37.5-50.7 POC IONIZED [id number] 10:23:00 Test Item Value Reference Range Interpretation Comments POC IONIZED CALCIUM (test code = 1.06 MMOL/L 1.12-1.32 L POCCA) POC LACTIC [id number] 10:23:00 Test Item Value Reference Range Interpretation Comments POC LACTIC ACID (test code = POCLAC) mmol/l 0.9-1.7 POC [id number] 10:23:00 Test Item Value Reference Range Interpretation Comments POC GLUCOSE (test code = POCGLU) MG/DL 70-110 POC ARTERIAL BLOOD [id number] 10:23:00 Test Item Value Reference Range Interpretation Comments POC ARTERIAL BLOOD GAS PH (test 7.421 7.35-7.45 N code = POCPHA) POC ARTERIAL BLOOD GAS PCO2 (test 39.2 mmHg 35.0-45 N code = WCMLHV8A) POC TCO2 ARTERIAL (test code = 26.7 POCTCO2) POC ARTERIAL BLOOD GAS PO2 (test 252.2 mmHg 80-100.0 HH code = XCARZ0S) POC HCO3 ARTERIAL (test code = 25.5 MMOL/L 22.0-26.0 N ROLHLB1X) POC BASE EXCESS (test code = 1.0 MMOL/L -4.0-4.0 N POCBEA) POC O2 SATURATION (test code = 99.9 % 90-100 N POCO2S) [id number] 10:23:00 Test Item Value Reference Range Interpretation Comments SODIUM (test code = NA/ABG) 139 MEQ/L 134-147 N [id number] 10:23:00 Test Item Value Reference Range Interpretation Comments POTASSIUM (test code = K/ABG) 4.1 MEQ/L 3.4-5.0 N [id number] 10:23:00 Test Item Value Reference Range Interpretation Comments CHLORIDE (test code = CL/ABG) MEQ/L 100-108 CREATININE [id number] 10:23:00 Test Item Value Reference Range Interpretation Comments CREATININE ABG (test code = CREAABG) mg/dL 0.8-1.3 [id number] 10:23:00 Test Item Value Reference Range Interpretation Comments HEMOGLOBIN (test code = HGB/ABG) G/DL 12.5-16.9 [id number] 10:23:00 Test Item Value Reference Range Interpretation Comments HEMATOCRIT (test code = HCT/ABG) % 37.5-50.7 POC IONIZED [id number] 10:23:00 Test Item Value Reference Range Interpretation Comments POC IONIZED CALCIUM (test code = 1.06 MMOL/L 1.12-1.32 L POCCA) POC LACTIC [id number] 10:23:00 Test Item Value Reference Range Interpretation Comments POC LACTIC ACID (test code = POCLAC) mmol/l 0.9-1.7 POC [id number] 10:23:00 Test Item Value Reference Range Interpretation Comments POC GLUCOSE (test code = POCGLU) 136 MG/DL 70-110 H POC ARTERIAL BLOOD [id number] 10:23:00 Test Item Value Reference Range Interpretation Comments POC ARTERIAL BLOOD GAS PH (test 7.421 7.35-7.45 N code = POCPHA) POC ARTERIAL BLOOD GAS PCO2 (test 39.2 mmHg 35.0-45 N code = PYVXIT1Q) POC TCO2 ARTERIAL (test code = 26.7 POCTCO2) POC ARTERIAL BLOOD GAS PO2 (test 252.2 mmHg 80-100.0 HH code = GCWTA9P) POC HCO3 ARTERIAL (test code = 25.5 MMOL/L 22.0-26.0 N XYFVNI7T) POC BASE EXCESS (test code = 1.0 MMOL/L -4.0-4.0 N POCBEA) POC O2 SATURATION (test code = 99.9 % 90-100 N POCO2S) [id number] 10:23:00 Test Item Value Reference Range Interpretation Comments SODIUM (test code = NA/ABG) 139 MEQ/L 134-147 N [id number] 10:23:00 Test Item Value Reference Range Interpretation Comments POTASSIUM (test code = K/ABG) 4.1 MEQ/L 3.4-5.0 N [id number] 10:23:00 Test Item Value Reference Range Interpretation Comments CHLORIDE (test code = CL/ABG) MEQ/L 100-108 CREATININE [id number] 10:23:00 Test Item Value Reference Range Interpretation Comments CREATININE ABG (test code = CREAABG) mg/dL 0.8-1.3 [id number] 10:23:00 Test Item Value Reference Range Interpretation Comments HEMOGLOBIN (test code = HGB/ABG) G/DL 12.5-16.9 [id number] 10:23:00 Test Item Value Reference Range Interpretation Comments HEMATOCRIT (test code = HCT/ABG) % 37.5-50.7 POC IONIZED [id number] 10:23:00 Test Item Value Reference Range Interpretation Comments POC IONIZED CALCIUM (test code = 1.06 MMOL/L 1.12-1.32 L POCCA) POC LACTIC [id number] 10:23:00 Test Item Value Reference Range Interpretation Comments POC LACTIC ACID (test code = 1.0 mmol/l 0.9-1.7 N POCLAC) POC [id number] 10:23:00 Test Item Value Reference Range Interpretation Comments POC GLUCOSE (test code = POCGLU) 136 MG/DL 70-110 H POC ARTERIAL BLOOD [id number] 10:23:00 Test Item Value Reference Range Interpretation Comments POC ARTERIAL BLOOD GAS PH (test 7.421 7.35-7.45 N code = POCPHA) POC ARTERIAL BLOOD GAS PCO2 (test 39.2 mmHg 35.0-45 N code = AGETDA9H) POC TCO2 ARTERIAL (test code = 26.7 POCTCO2) POC ARTERIAL BLOOD GAS PO2 (test 252.2 mmHg 80-100.0 HH code = LDPFW9V) POC HCO3 ARTERIAL (test code = 25.5 MMOL/L 22.0-26.0 N LSHFBT2G) POC BASE EXCESS (test code = 1.0 MMOL/L -4.0-4.0 N POCBEA) POC O2 SATURATION (test code = 99.9 % 90-100 N POCO2S) [id number] 10:23:00 Test Item Value Reference Range Interpretation Comments SODIUM (test code = NA/ABG) 139 MEQ/L 134-147 N [id number] 10:23:00 Test Item Value Reference Range Interpretation Comments POTASSIUM (test code = K/ABG) 4.1 MEQ/L 3.4-5.0 N [id number] 10:23:00 Test Item Value Reference Range Interpretation Comments CHLORIDE (test code = CL/ABG) MEQ/L 100-108 CREATININE [id number] 10:23:00 Test Item Value Reference Range Interpretation Comments CREATININE ABG (test code = CREAABG) mg/dL 0.8-1.3 [id number] 10:23:00 Test Item Value Reference Range Interpretation Comments HEMOGLOBIN (test code = HGB/ABG) G/DL 12.5-16.9 [id number] 10:23:00 Test Item Value Reference Range Interpretation Comments HEMATOCRIT (test code = HCT/ABG) 29 % 37.5-50.7 L POC IONIZED [id number] 10:23:00 Test Item Value Reference Range Interpretation Comments POC IONIZED CALCIUM (test code = 1.06 MMOL/L 1.12-1.32 L POCCA) POC LACTIC [id number] 10:23:00 Test Item Value Reference Range Interpretation Comments POC LACTIC ACID (test code = 1.0 mmol/l 0.9-1.7 N POCLAC) POC [id number] 10:23:00 Test Item Value Reference Range Interpretation Comments POC GLUCOSE (test code = POCGLU) 136 MG/DL 70-110 H POC ARTERIAL BLOOD [id number] 10:23:00 Test Item Value Reference Range Interpretation Comments POC ARTERIAL BLOOD GAS PH (test 7.421 7.35-7.45 N code = POCPHA) POC ARTERIAL BLOOD GAS PCO2 (test 39.2 mmHg 35.0-45 N code = AEMURF6M) POC TCO2 ARTERIAL (test code = 26.7 POCTCO2) POC ARTERIAL BLOOD GAS PO2 (test 252.2 mmHg 80-100.0 HH code = KMTFG4J) POC HCO3 ARTERIAL (test code = 25.5 MMOL/L 22.0-26.0 N PVKMCC3F) POC BASE EXCESS (test code = 1.0 MMOL/L -4.0-4.0 N POCBEA) POC O2 SATURATION (test code = 99.9 % 90-100 N POCO2S) [id number] 10:23:00 Test Item Value Reference Range Interpretation Comments SODIUM (test code = NA/ABG) 139 MEQ/L 134-147 N [id number] 10:23:00 Test Item Value Reference Range Interpretation Comments POTASSIUM (test code = K/ABG) 4.1 MEQ/L 3.4-5.0 N [id number] 10:23:00 Test Item Value Reference Range Interpretation Comments CHLORIDE (test code = CL/ABG) MEQ/L 100-108 CREATININE [id number] 10:23:00 Test Item Value Reference Range Interpretation Comments CREATININE ABG (test code = CREAABG) mg/dL 0.8-1.3 [id number] 10:23:00 Test Item Value Reference Range Interpretation Comments HEMOGLOBIN (test code = HGB/ABG) 9.9 G/DL 12.5-16.9 L [id number] 10:23:00 Test Item Value Reference Range Interpretation Comments HEMATOCRIT (test code = HCT/ABG) 29 % 37.5-50.7 L POC IONIZED [id number] 10:23:00 Test Item Value Reference Range Interpretation Comments POC IONIZED CALCIUM (test code = 1.06 MMOL/L 1.12-1.32 L POCCA) POC LACTIC [id number] 10:23:00 Test Item Value Reference Range Interpretation Comments POC LACTIC ACID (test code = 1.0 mmol/l 0.9-1.7 N POCLAC) POC [id number] 10:23:00 Test Item Value Reference Range Interpretation Comments POC GLUCOSE (test code = POCGLU) 136 MG/DL 70-110 H POC ARTERIAL BLOOD [id number] 10:23:00 Test Item Value Reference Range Interpretation Comments POC ARTERIAL BLOOD GAS PH (test 7.421 7.35-7.45 N code = POCPHA) POC ARTERIAL BLOOD GAS PCO2 (test 39.2 mmHg 35.0-45 N code = GLSUQY3J) POC TCO2 ARTERIAL (test code = 26.7 POCTCO2) POC ARTERIAL BLOOD GAS PO2 (test 252.2 mmHg 80-100.0 HH code = FEWCN4L) POC HCO3 ARTERIAL (test code = 25.5 MMOL/L 22.0-26.0 N BTVBBL9W) POC BASE EXCESS (test code = 1.0 MMOL/L -4.0-4.0 N POCBEA) POC O2 SATURATION (test code = 99.9 % 90-100 N POCO2S) [id number] 10:23:00 Test Item Value Reference Range Interpretation Comments SODIUM (test code = NA/ABG) 139 MEQ/L 134-147 N [id number] 10:23:00 Test Item Value Reference Range Interpretation Comments POTASSIUM (test code = K/ABG) 4.1 MEQ/L 3.4-5.0 N [id number] 10:23:00 Test Item Value Reference Range Interpretation Comments CHLORIDE (test code = CL/ABG) 105 MEQ/L 100-108 N CREATININE [id number] 10:23:00 Test Item Value Reference Range Interpretation Comments CREATININE ABG (test code = CREAABG) mg/dL 0.8-1.3 [id number] 10:23:00 Test Item Value Reference Range Interpretation Comments HEMOGLOBIN (test code = HGB/ABG) 9.9 G/DL 12.5-16.9 L [id number] 10:23:00 Test Item Value Reference Range Interpretation Comments HEMATOCRIT (test code = HCT/ABG) 29 % 37.5-50.7 L POC IONIZED [id number] 10:23:00 Test Item Value Reference Range Interpretation Comments POC IONIZED CALCIUM (test code = 1.06 MMOL/L 1.12-1.32 L POCCA) POC LACTIC [id number] 10:23:00 Test Item Value Reference Range Interpretation Comments POC LACTIC ACID (test code = 1.0 mmol/l 0.9-1.7 N POCLAC) POC [id number] 10:23:00 Test Item Value Reference Range Interpretation Comments POC GLUCOSE (test code = POCGLU) 136 MG/DL 70-110 H POC ARTERIAL BLOOD [id number] 10:23:00 Test Item Value Reference Range Interpretation Comments POC ARTERIAL BLOOD GAS PH (test 7.421 7.35-7.45 N code = POCPHA) POC ARTERIAL BLOOD GAS PCO2 (test 39.2 mmHg 35.0-45 N code = CEEDSD6H) POC TCO2 ARTERIAL (test code = 26.7 POCTCO2) POC ARTERIAL BLOOD GAS PO2 (test 252.2 mmHg 80-100.0 HH code = TJKEJ7E) POC HCO3 ARTERIAL (test code = 25.5 MMOL/L 22.0-26.0 N CEEYQE5H) POC BASE EXCESS (test code = 1.0 MMOL/L -4.0-4.0 N POCBEA) POC O2 SATURATION (test code = 99.9 % 90-100 N POCO2S) [id number] 10:23:00 Test Item Value Reference Range Interpretation Comments SODIUM (test code = NA/ABG) 139 MEQ/L 134-147 N [id number] 10:23:00 Test Item Value Reference Range Interpretation Comments POTASSIUM (test code = K/ABG) 4.1 MEQ/L 3.4-5.0 N [id number] 10:23:00 Test Item Value Reference Range Interpretation Comments CHLORIDE (test code = CL/ABG) 105 MEQ/L 100-108 N CREATININE [id number] 10:23:00 Test Item Value Reference Range Interpretation Comments CREATININE ABG (test code = 1.0 mg/dL 0.8-1.3 N CREAABG) [id number] 10:23:00 Test Item Value Reference Range Interpretation Comments HEMOGLOBIN (test code = HGB/ABG) 9.9 G/DL 12.5-16.9 L [id number] 10:23:00 Test Item Value Reference Range Interpretation Comments HEMATOCRIT (test code = HCT/ABG) 29 % 37.5-50.7 L POC IONIZED [id number] 10:23:00 Test Item Value Reference Range Interpretation Comments POC IONIZED CALCIUM (test code = 1.06 MMOL/L 1.12-1.32 L POCCA) POC LACTIC [id number] 10:23:00 Test Item Value Reference Range Interpretation Comments POC LACTIC ACID (test code = 1.0 mmol/l 0.9-1.7 N POCLAC) POC [id number] 10:23:00 Test Item Value Reference Range Interpretation Comments POC GLUCOSE (test code = POCGLU) 136 MG/DL 70-110 H [id number] 10:08:00 Test Item Value Reference Range Interpretation Comments ACT-ISTAT (test code 654 SEC 74-137 H 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 ARTERIAL BLOOD [id number] 09:55:00 Test Item Value Reference Range Interpretation Comments POC ARTERIAL BLOOD GAS PH (test 7.419 7.35-7.45 N code = POCPHA) POC ARTERIAL BLOOD GAS PCO2 (test 40.7 mmHg 35.0-45 N code = BPFBGZ9R) POC TCO2 ARTERIAL (test code = 27.6 POCTCO2) POC ARTERIAL BLOOD GAS PO2 (test 320.1 mmHg 80-100.0 HH code = XRTEU4E) POC HCO3 ARTERIAL (test code = 26.4 MMOL/L 22.0-26.0 H LCBUJG2C) POC BASE EXCESS (test code = 1.7 MMOL/L -4.0-4.0 N POCBEA) POC O2 SATURATION (test code = 99.9 % 90-100 N POCO2S) [id number] 09:55:00 Test Item Value Reference Range Interpretation Comments SODIUM (test code = NA/ABG) MEQ/L 134-147 [id number] 09:55:00 Test Item Value Reference Range Interpretation Comments POTASSIUM (test code = K/ABG) MEQ/L 3.4-5.0 [id number] 09:55:00 Test Item Value Reference Range Interpretation Comments CHLORIDE (test code = CL/ABG) MEQ/L 100-108 CREATININE [id number] 09:55:00 Test Item Value Reference Range Interpretation Comments CREATININE ABG (test code = CREAABG) mg/dL 0.8-1.3 [id number] 09:55:00 Test Item Value Reference Range Interpretation Comments HEMOGLOBIN (test code = HGB/ABG) G/DL 12.5-16.9 [id number] 09:55:00 Test Item Value Reference Range Interpretation Comments HEMATOCRIT (test code = HCT/ABG) % 37.5-50.7 POC IONIZED [id number] 09:55:00 Test Item Value Reference Range Interpretation Comments POC IONIZED CALCIUM (test code = MMOL/L 1.12-1.32 POCCA) POC LACTIC [id number] 09:55:00 Test Item Value Reference Range Interpretation Comments POC LACTIC ACID (test code = POCLAC) mmol/l 0.9-1.7 POC [id number] 09:55:00 Test Item Value Reference Range Interpretation Comments POC GLUCOSE (test code = POCGLU) MG/DL 70-110 POC ARTERIAL BLOOD [id number] 09:55:00 Test Item Value Reference Range Interpretation Comments POC ARTERIAL BLOOD GAS PH (test 7.419 7.35-7.45 N code = POCPHA) POC ARTERIAL BLOOD GAS PCO2 (test 40.7 mmHg 35.0-45 N code = MQUDZZ2M) POC TCO2 ARTERIAL (test code = 27.6 POCTCO2) POC ARTERIAL BLOOD GAS PO2 (test 320.1 mmHg 80-100.0 HH code = IGRQO7X) POC HCO3 ARTERIAL (test code = 26.4 MMOL/L 22.0-26.0 H QGTXEH3W) POC BASE EXCESS (test code = 1.7 MMOL/L -4.0-4.0 N POCBEA) POC O2 SATURATION (test code = 99.9 % 90-100 N POCO2S) [id number] 09:55:00 Test Item Value Reference Range Interpretation Comments SODIUM (test code = NA/ABG) 139 MEQ/L 134-147 N [id number] 09:55:00 Test Item Value Reference Range Interpretation Comments POTASSIUM (test code = K/ABG) MEQ/L 3.4-5.0 [id number] 09:55:00 Test Item Value Reference Range Interpretation Comments CHLORIDE (test code = CL/ABG) MEQ/L 100-108 CREATININE [id number] 09:55:00 Test Item Value Reference Range Interpretation Comments CREATININE ABG (test code = CREAABG) mg/dL 0.8-1.3 [id number] 09:55:00 Test Item Value Reference Range Interpretation Comments HEMOGLOBIN (test code = HGB/ABG) G/DL 12.5-16.9 [id number] 09:55:00 Test Item Value Reference Range Interpretation Comments HEMATOCRIT (test code = HCT/ABG) % 37.5-50.7 POC IONIZED [id number] 09:55:00 Test Item Value Reference Range Interpretation Comments POC IONIZED CALCIUM (test code = MMOL/L 1.12-1.32 POCCA) POC LACTIC [id number] 09:55:00 Test Item Value Reference Range Interpretation Comments POC LACTIC ACID (test code = POCLAC) mmol/l 0.9-1.7 POC [id number] 09:55:00 Test Item Value Reference Range Interpretation Comments POC GLUCOSE (test code = POCGLU) MG/DL 70-110 POC ARTERIAL BLOOD [id number] 09:55:00 Test Item Value Reference Range Interpretation Comments POC ARTERIAL BLOOD GAS PH (test 7.419 7.35-7.45 N code = POCPHA) POC ARTERIAL BLOOD GAS PCO2 (test 40.7 mmHg 35.0-45 N code = UNHUTX4O) POC TCO2 ARTERIAL (test code = 27.6 POCTCO2) POC ARTERIAL BLOOD GAS PO2 (test 320.1 mmHg 80-100.0 HH code = WAKPH5S) POC HCO3 ARTERIAL (test code = 26.4 MMOL/L 22.0-26.0 H RMGVLE5H) POC BASE EXCESS (test code = 1.7 MMOL/L -4.0-4.0 N POCBEA) POC O2 SATURATION (test code = 99.9 % 90-100 N POCO2S) [id number] 09:55:00 Test Item Value Reference Range Interpretation Comments SODIUM (test code = NA/ABG) 139 MEQ/L 134-147 N [id number] 09:55:00 Test Item Value Reference Range Interpretation Comments POTASSIUM (test code = K/ABG) 4.2 MEQ/L 3.4-5.0 N [id number] 09:55:00 Test Item Value Reference Range Interpretation Comments CHLORIDE (test code = CL/ABG) MEQ/L 100-108 CREATININE [id number] 09:55:00 Test Item Value Reference Range Interpretation Comments CREATININE ABG (test code = CREAABG) mg/dL 0.8-1.3 [id number] 09:55:00 Test Item Value Reference Range Interpretation Comments HEMOGLOBIN (test code = HGB/ABG) G/DL 12.5-16.9 [id number] 09:55:00 Test Item Value Reference Range Interpretation Comments HEMATOCRIT (test code = HCT/ABG) % 37.5-50.7 POC IONIZED [id number] 09:55:00 Test Item Value Reference Range Interpretation Comments POC IONIZED CALCIUM (test code = MMOL/L 1.12-1.32 POCCA) POC LACTIC [id number] 09:55:00 Test Item Value Reference Range Interpretation Comments POC LACTIC ACID (test code = POCLAC) mmol/l 0.9-1.7 POC [id number] 09:55:00 Test Item Value Reference Range Interpretation Comments POC GLUCOSE (test code = POCGLU) MG/DL 70-110 POC ARTERIAL BLOOD [id number] 09:55:00 Test Item Value Reference Range Interpretation Comments POC ARTERIAL BLOOD GAS PH (test 7.419 7.35-7.45 N code = POCPHA) POC ARTERIAL BLOOD GAS PCO2 (test 40.7 mmHg 35.0-45 N code = [id number]) POC TCO2 ARTERIAL (test code = 27.6 POCTCO2) POC ARTERIAL BLOOD GAS PO2 (test 320.1 mmHg 80-100.0 HH code = [id number]) POC HCO3 ARTERIAL (test code = 26.4 MMOL/L 22.0-26.0 H [id number]) POC BASE EXCESS (test code = 1.7 MMOL/L -4.0-4.0 N POCBEA) POC O2 SATURATION (test code = 99.9 % 90-100 N POCO2S) [id number] 09:55:00 Test Item Value Reference Range Interpretation Comments SODIUM (test code = NA/ABG) 139 MEQ/L 134-147 N [id number] 09:55:00 Test Item Value Reference Range Interpretation Comments POTASSIUM (test code = K/ABG) 4.2 MEQ/L 3.4-5.0 N [id number] 09:55:00 Test Item Value Reference Range Interpretation Comments CHLORIDE (test code = CL/ABG) MEQ/L 100-108 CREATININE [id number] 09:55:00 Test Item Value Reference Range Interpretation Comments CREATININE ABG (test code = CREAABG) mg/dL 0.8-1.3 [id number] 09:55:00 Test Item Value Reference Range Interpretation Comments HEMOGLOBIN (test code = HGB/ABG) G/DL 12.5-16.9 [id number] 09:55:00 Test Item Value Reference Range Interpretation Comments HEMATOCRIT (test code = HCT/ABG) % 37.5-50.7 POC IONIZED [id number] 09:55:00 Test Item Value Reference Range Interpretation Comments POC IONIZED CALCIUM (test code = 1.03 MMOL/L 1.12-1.32 L POCCA) POC LACTIC [id number] 09:55:00 Test Item Value Reference Range Interpretation Comments POC LACTIC ACID (test code = POCLAC) mmol/l 0.9-1.7 POC [id number] 09:55:00 Test Item Value Reference Range Interpretation Comments POC GLUCOSE (test code = POCGLU) MG/DL 70-110 POC ARTERIAL BLOOD [id number] 09:55:00 Test Item Value Reference Range Interpretation Comments POC ARTERIAL BLOOD GAS PH (test 7.419 7.35-7.45 N code = POCPHA) POC ARTERIAL BLOOD GAS PCO2 (test 40.7 mmHg 35.0-45 N code = [id number]) POC TCO2 ARTERIAL (test code = 27.6 POCTCO2) POC ARTERIAL BLOOD GAS PO2 (test 320.1 mmHg 80-100.0 HH code = RILFL4E) POC HCO3 ARTERIAL (test code = 26.4 MMOL/L 22.0-26.0 H [id number]) POC BASE EXCESS (test code = 1.7 MMOL/L -4.0-4.0 N POCBEA) POC O2 SATURATION (test code = 99.9 % 90-100 N POCO2S) [id number] 09:55:00 Test Item Value Reference Range Interpretation Comments SODIUM (test code = NA/ABG) 139 MEQ/L 134-147 N [id number] 09:55:00 Test Item Value Reference Range Interpretation Comments POTASSIUM (test code = K/ABG) 4.2 MEQ/L 3.4-5.0 N [id number] 09:55:00 Test Item Value Reference Range Interpretation Comments CHLORIDE (test code = CL/ABG) MEQ/L 100-108 CREATININE [id number] 09:55:00 Test Item Value Reference Range Interpretation Comments CREATININE ABG (test code = CREAABG) mg/dL 0.8-1.3 [id number] 09:55:00 Test Item Value Reference Range Interpretation Comments HEMOGLOBIN (test code = HGB/ABG) G/DL 12.5-16.9 [id number] 09:55:00 Test Item Value Reference Range Interpretation Comments HEMATOCRIT (test code = HCT/ABG) % 37.5-50.7 POC IONIZED [id number] 09:55:00 Test Item Value Reference Range Interpretation Comments POC IONIZED CALCIUM (test code = 1.03 MMOL/L 1.12-1.32 L POCCA) POC LACTIC [id number] 09:55:00 Test Item Value Reference Range Interpretation Comments POC LACTIC ACID (test code = POCLAC) mmol/l 0.9-1.7 POC [id number] 09:55:00 Test Item Value Reference Range Interpretation Comments POC GLUCOSE (test code = POCGLU) 135 MG/DL 70-110 H POC ARTERIAL BLOOD [id number] 09:55:00 Test Item Value Reference Range Interpretation Comments POC ARTERIAL BLOOD GAS PH (test 7.419 7.35-7.45 N code = POCPHA) POC ARTERIAL BLOOD GAS PCO2 (test 40.7 mmHg 35.0-45 N code = NTZJHO8A) POC TCO2 ARTERIAL (test code = 27.6 POCTCO2) POC ARTERIAL BLOOD GAS PO2 (test 320.1 mmHg 80-100.0 HH code = LPBPH4N) POC HCO3 ARTERIAL (test code = 26.4 MMOL/L 22.0-26.0 H VGERQU7L) POC BASE EXCESS (test code = 1.7 MMOL/L -4.0-4.0 N POCBEA) POC O2 SATURATION (test code = 99.9 % 90-100 N POCO2S) [id number] 09:55:00 Test Item Value Reference Range Interpretation Comments SODIUM (test code = NA/ABG) 139 MEQ/L 134-147 N [id number] 09:55:00 Test Item Value Reference Range Interpretation Comments POTASSIUM (test code = K/ABG) 4.2 MEQ/L 3.4-5.0 N [id number] 09:55:00 Test Item Value Reference Range Interpretation Comments CHLORIDE (test code = CL/ABG) MEQ/L 100-108 CREATININE [id number] 09:55:00 Test Item Value Reference Range Interpretation Comments CREATININE ABG (test code = CREAABG) mg/dL 0.8-1.3 [id number] 09:55:00 Test Item Value Reference Range Interpretation Comments HEMOGLOBIN (test code = HGB/ABG) G/DL 12.5-16.9 [id number] 09:55:00 Test Item Value Reference Range Interpretation Comments HEMATOCRIT (test code = HCT/ABG) % 37.5-50.7 POC IONIZED [id number] 09:55:00 Test Item Value Reference Range Interpretation Comments POC IONIZED CALCIUM (test code = 1.03 MMOL/L 1.12-1.32 L POCCA) POC LACTIC [id number] 09:55:00 Test Item Value Reference Range Interpretation Comments POC LACTIC ACID (test code = 1.1 mmol/l 0.9-1.7 N POCLAC) POC [id number] 09:55:00 Test Item Value Reference Range Interpretation Comments POC GLUCOSE (test code = POCGLU) 135 MG/DL 70-110 H POC ARTERIAL BLOOD [id number] 09:55:00 Test Item Value Reference Range Interpretation Comments POC ARTERIAL BLOOD GAS PH (test 7.419 7.35-7.45 N code = POCPHA) POC ARTERIAL BLOOD GAS PCO2 (test 40.7 mmHg 35.0-45 N code = UOTETF9Y) POC TCO2 ARTERIAL (test code = 27.6 POCTCO2) POC ARTERIAL BLOOD GAS PO2 (test 320.1 mmHg 80-100.0 HH code = QMBGH9K) POC HCO3 ARTERIAL (test code = 26.4 MMOL/L 22.0-26.0 H SNPSBJ9U) POC BASE EXCESS (test code = 1.7 MMOL/L -4.0-4.0 N POCBEA) POC O2 SATURATION (test code = 99.9 % 90-100 N POCO2S) [id number] 09:55:00 Test Item Value Reference Range Interpretation Comments SODIUM (test code = NA/ABG) 139 MEQ/L 134-147 N [id number] 09:55:00 Test Item Value Reference Range Interpretation Comments POTASSIUM (test code = K/ABG) 4.2 MEQ/L 3.4-5.0 N [id number] 09:55:00 Test Item Value Reference Range Interpretation Comments CHLORIDE (test code = CL/ABG) MEQ/L 100-108 CREATININE [id number] 09:55:00 Test Item Value Reference Range Interpretation Comments CREATININE ABG (test code = CREAABG) mg/dL 0.8-1.3 [id number] 09:55:00 Test Item Value Reference Range Interpretation Comments HEMOGLOBIN (test code = HGB/ABG) G/DL 12.5-16.9 [id number] 09:55:00 Test Item Value Reference Range Interpretation Comments HEMATOCRIT (test code = HCT/ABG) 30 % 37.5-50.7 L POC IONIZED [id number] 09:55:00 Test Item Value Reference Range Interpretation Comments POC IONIZED CALCIUM (test code = 1.03 MMOL/L 1.12-1.32 L POCCA) POC LACTIC [id number] 09:55:00 Test Item Value Reference Range Interpretation Comments POC LACTIC ACID (test code = 1.1 mmol/l 0.9-1.7 N POCLAC) POC [id number] 09:55:00 Test Item Value Reference Range Interpretation Comments POC GLUCOSE (test code = POCGLU) 135 MG/DL 70-110 H POC ARTERIAL BLOOD [id number] 09:55:00 Test Item Value Reference Range Interpretation Comments POC ARTERIAL BLOOD GAS PH (test 7.419 7.35-7.45 N code = POCPHA) POC ARTERIAL BLOOD GAS PCO2 (test 40.7 mmHg 35.0-45 N code = PZXNOT0Y) POC TCO2 ARTERIAL (test code = 27.6 POCTCO2) POC ARTERIAL BLOOD GAS PO2 (test 320.1 mmHg 80-100.0 HH code = LGURM8Y) POC HCO3 ARTERIAL (test code = 26.4 MMOL/L 22.0-26.0 H WFSINF7D) POC BASE EXCESS (test code = 1.7 MMOL/L -4.0-4.0 N POCBEA) POC O2 SATURATION (test code = 99.9 % 90-100 N POCO2S) [id number] 09:55:00 Test Item Value Reference Range Interpretation Comments SODIUM (test code = NA/ABG) 139 MEQ/L 134-147 N [id number] 09:55:00 Test Item Value Reference Range Interpretation Comments POTASSIUM (test code = K/ABG) 4.2 MEQ/L 3.4-5.0 N [id number] 09:55:00 Test Item Value Reference Range Interpretation Comments CHLORIDE (test code = CL/ABG) MEQ/L 100-108 CREATININE [id number] 09:55:00 Test Item Value Reference Range Interpretation Comments CREATININE ABG (test code = CREAABG) mg/dL 0.8-1.3 [id number] 09:55:00 Test Item Value Reference Range Interpretation Comments HEMOGLOBIN (test code = HGB/ABG) 10.3 G/DL 12.5-16.9 L [id number] 09:55:00 Test Item Value Reference Range Interpretation Comments HEMATOCRIT (test code = HCT/ABG) 30 % 37.5-50.7 L POC IONIZED [id number] 09:55:00 Test Item Value Reference Range Interpretation Comments POC IONIZED CALCIUM (test code = 1.03 MMOL/L 1.12-1.32 L POCCA) POC LACTIC [id number] 09:55:00 Test Item Value Reference Range Interpretation Comments POC LACTIC ACID (test code = 1.1 mmol/l 0.9-1.7 N POCLAC) POC [id number] 09:55:00 Test Item Value Reference Range Interpretation Comments POC GLUCOSE (test code = POCGLU) 135 MG/DL 70-110 H POC ARTERIAL BLOOD [id number] 09:55:00 Test Item Value Reference Range Interpretation Comments POC ARTERIAL BLOOD GAS PH (test 7.419 7.35-7.45 N code = POCPHA) POC ARTERIAL BLOOD GAS PCO2 (test 40.7 mmHg 35.0-45 N code = NFYBKS6K) POC TCO2 ARTERIAL (test code = 27.6 POCTCO2) POC ARTERIAL BLOOD GAS PO2 (test 320.1 mmHg 80-100.0 HH code = ZOLWP1E) POC HCO3 ARTERIAL (test code = 26.4 MMOL/L 22.0-26.0 H [id number]) POC BASE EXCESS (test code = 1.7 MMOL/L -4.0-4.0 N POCBEA) POC O2 SATURATION (test code = 99.9 % 90-100 N POCO2S) [id number] 09:55:00 Test Item Value Reference Range Interpretation Comments SODIUM (test code = NA/ABG) 139 MEQ/L 134-147 N [id number] 09:55:00 Test Item Value Reference Range Interpretation Comments POTASSIUM (test code = K/ABG) 4.2 MEQ/L 3.4-5.0 N [id number] 09:55:00 Test Item Value Reference Range Interpretation Comments CHLORIDE (test code = CL/ABG) 104 MEQ/L 100-108 N CREATININE [id number] 09:55:00 Test Item Value Reference Range Interpretation Comments CREATININE ABG (test code = CREAABG) mg/dL 0.8-1.3 [id number] 09:55:00 Test Item Value Reference Range Interpretation Comments HEMOGLOBIN (test code = HGB/ABG) 10.3 G/DL 12.5-16.9 L [id number] 09:55:00 Test Item Value Reference Range Interpretation Comments HEMATOCRIT (test code = HCT/ABG) 30 % 37.5-50.7 L POC IONIZED [id number] 09:55:00 Test Item Value Reference Range Interpretation Comments POC IONIZED CALCIUM (test code = 1.03 MMOL/L 1.12-1.32 L POCCA) POC LACTIC [id number] 09:55:00 Test Item Value Reference Range Interpretation Comments POC LACTIC ACID (test code = 1.1 mmol/l 0.9-1.7 N POCLAC) POC [id number] 09:55:00 Test Item Value Reference Range Interpretation Comments POC GLUCOSE (test code = POCGLU) 135 MG/DL 70-110 H POC ARTERIAL BLOOD [id number] 09:55:00 Test Item Value Reference Range Interpretation Comments POC ARTERIAL BLOOD GAS PH (test 7.419 7.35-7.45 N code = POCPHA) POC ARTERIAL BLOOD GAS PCO2 (test 40.7 mmHg 35.0-45 N code = QYBKUR8E) POC TCO2 ARTERIAL (test code = 27.6 POCTCO2) POC ARTERIAL BLOOD GAS PO2 (test 320.1 mmHg 80-100.0 HH code = MJKJL5B) POC HCO3 ARTERIAL (test code = 26.4 MMOL/L 22.0-26.0 H WBRNAF3M) POC BASE EXCESS (test code = 1.7 MMOL/L -4.0-4.0 N POCBEA) POC O2 SATURATION (test code = 99.9 % 90-100 N POCO2S) [id number] 09:55:00 Test Item Value Reference Range Interpretation Comments SODIUM (test code = NA/ABG) 139 MEQ/L 134-147 N [id number] 09:55:00 Test Item Value Reference Range Interpretation Comments POTASSIUM (test code = K/ABG) 4.2 MEQ/L 3.4-5.0 N [id number] 09:55:00 Test Item Value Reference Range Interpretation Comments CHLORIDE (test code = CL/ABG) 104 MEQ/L 100-108 N CREATININE [id number] 09:55:00 Test Item Value Reference Range Interpretation Comments CREATININE ABG (test code = 0.9 mg/dL 0.8-1.3 N CREAABG) [id number] 09:55:00 Test Item Value Reference Range Interpretation Comments HEMOGLOBIN (test code = HGB/ABG) 10.3 G/DL 12.5-16.9 L [id number] 09:55:00 Test Item Value Reference Range Interpretation Comments HEMATOCRIT (test code = HCT/ABG) 30 % 37.5-50.7 L POC IONIZED [id number] 09:55:00 Test Item Value Reference Range Interpretation Comments POC IONIZED CALCIUM (test code = 1.03 MMOL/L 1.12-1.32 L POCCA) POC LACTIC [id number] 09:55:00 Test Item Value Reference Range Interpretation Comments POC LACTIC ACID (test code = 1.1 mmol/l 0.9-1.7 N POCLAC) POC [id number] 09:55:00 Test Item Value Reference Range Interpretation Comments POC GLUCOSE (test code = POCGLU) 135 MG/DL 70-110 H [id number] 09:43:00 Test Item Value Reference Range Interpretation Comments ACT-ISTAT (test code 626 SEC 74-137 H 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[place] [id number] 09:37:00 Test Item Value Reference Range Interpretation Comments ACT-ISTAT (test code 626 SEC 74-137 H 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 ARTERIAL BLOOD [id number] 09:12:00 Test Item Value Reference Range Interpretation Comments POC ARTERIAL BLOOD GAS PH (test 7.390 7.35-7.45 N code = POCPHA) POC ARTERIAL BLOOD GAS PCO2 (test 41.0 mmHg 35.0-45 N code = UECGRH6B) POC TCO2 ARTERIAL (test code = 26.1 POCTCO2) POC ARTERIAL BLOOD GAS PO2 (test 178.3 mmHg 80-100.0 H code = UUPLY8B) POC HCO3 ARTERIAL (test code = 24.8 MMOL/L 22.0-26.0 N ZQURVS0N) POC BASE EXCESS (test code = -0.2 MMOL/L -4.0-4.0 N POCBEA) POC O2 SATURATION (test code = 99.6 % 90-100 N POCO2S) [id number] 09:12:00 Test Item Value Reference Range Interpretation Comments SODIUM (test code = NA/ABG) MEQ/L 134-147 [id number] 09:12:00 Test Item Value Reference Range Interpretation Comments POTASSIUM (test code = K/ABG) MEQ/L 3.4-5.0 [id number] 09:12:00 Test Item Value Reference Range Interpretation Comments CHLORIDE (test code = CL/ABG) MEQ/L 100-108 CREATININE [id number] 09:12:00 Test Item Value Reference Range Interpretation Comments CREATININE ABG (test code = CREAABG) mg/dL 0.8-1.3 [id number] 09:12:00 Test Item Value Reference Range Interpretation Comments HEMOGLOBIN (test code = HGB/ABG) G/DL 12.5-16.9 [id number] 09:12:00 Test Item Value Reference Range Interpretation Comments HEMATOCRIT (test code = HCT/ABG) % 37.5-50.7 POC IONIZED [id number] 09:12:00 Test Item Value Reference Range Interpretation Comments POC IONIZED CALCIUM (test code = MMOL/L 1.12-1.32 POCCA) POC LACTIC [id number] 09:12:00 Test Item Value Reference Range Interpretation Comments POC LACTIC ACID (test code = POCLAC) mmol/l 0.9-1.7 POC [id number] 09:12:00 Test Item Value Reference Range Interpretation Comments POC GLUCOSE (test code = POCGLU) MG/DL 70-110 POC ARTERIAL BLOOD [id number] 09:12:00 Test Item Value Reference Range Interpretation Comments POC ARTERIAL BLOOD GAS PH (test 7.390 7.35-7.45 N code = POCPHA) POC ARTERIAL BLOOD GAS PCO2 (test 41.0 mmHg 35.0-45 N code = TBIIWN6S) POC TCO2 ARTERIAL (test code = 26.1 POCTCO2) POC ARTERIAL BLOOD GAS PO2 (test 178.3 mmHg 80-100.0 H code = DXXBI9A) POC HCO3 ARTERIAL (test code = 24.8 MMOL/L 22.0-26.0 N CIGOXP8T) POC BASE EXCESS (test code = -0.2 MMOL/L -4.0-4.0 N POCBEA) POC O2 SATURATION (test code = 99.6 % 90-100 N POCO2S) [id number] 09:12:00 Test Item Value Reference Range Interpretation Comments SODIUM (test code = NA/ABG) 141 MEQ/L 134-147 N [id number] 09:12:00 Test Item Value Reference Range Interpretation Comments POTASSIUM (test code = K/ABG) MEQ/L 3.4-5.0 [id number] 09:12:00 Test Item Value Reference Range Interpretation Comments CHLORIDE (test code = CL/ABG) MEQ/L 100-108 CREATININE [id number] 09:12:00 Test Item Value Reference Range Interpretation Comments CREATININE ABG (test code = CREAABG) mg/dL 0.8-1.3 [id number] 09:12:00 Test Item Value Reference Range Interpretation Comments HEMOGLOBIN (test code = HGB/ABG) G/DL 12.5-16.9 [id number] 09:12:00 Test Item Value Reference Range Interpretation Comments HEMATOCRIT (test code = HCT/ABG) % 37.5-50.7 POC IONIZED [id number] 09:12:00 Test Item Value Reference Range Interpretation Comments POC IONIZED CALCIUM (test code = MMOL/L 1.12-1.32 POCCA) POC LACTIC [id number] 09:12:00 Test Item Value Reference Range Interpretation Comments POC LACTIC ACID (test code = POCLAC) mmol/l 0.9-1.7 POC [id number] 09:12:00 Test Item Value Reference Range Interpretation Comments POC GLUCOSE (test code = POCGLU) MG/DL 70-110 POC ARTERIAL BLOOD [id number] 09:12:00 Test Item Value Reference Range Interpretation Comments POC ARTERIAL BLOOD GAS PH (test 7.390 7.35-7.45 N code = POCPHA) POC ARTERIAL BLOOD GAS PCO2 (test 41.0 mmHg 35.0-45 N code = VRJMSP2L) POC TCO2 ARTERIAL (test code = 26.1 POCTCO2) POC ARTERIAL BLOOD GAS PO2 (test 178.3 mmHg 80-100.0 H code = IYQOX4U) POC HCO3 ARTERIAL (test code = 24.8 MMOL/L 22.0-26.0 N PULETY1B) POC BASE EXCESS (test code = -0.2 MMOL/L -4.0-4.0 N POCBEA) POC O2 SATURATION (test code = 99.6 % 90-100 N POCO2S) [id number] 09:12:00 Test Item Value Reference Range Interpretation Comments SODIUM (test code = NA/ABG) 141 MEQ/L 134-147 N [id number] 09:12:00 Test Item Value Reference Range Interpretation Comments POTASSIUM (test code = K/ABG) 3.6 MEQ/L 3.4-5.0 N [id number] 09:12:00 Test Item Value Reference Range Interpretation Comments CHLORIDE (test code = CL/ABG) MEQ/L 100-108 CREATININE [id number] 09:12:00 Test Item Value Reference Range Interpretation Comments CREATININE ABG (test code = CREAABG) mg/dL 0.8-1.3 [id number] 09:12:00 Test Item Value Reference Range Interpretation Comments HEMOGLOBIN (test code = HGB/ABG) G/DL 12.5-16.9 [id number] 09:12:00 Test Item Value Reference Range Interpretation Comments HEMATOCRIT (test code = HCT/ABG) % 37.5-50.7 POC IONIZED [id number] 09:12:00 Test Item Value Reference Range Interpretation Comments POC IONIZED CALCIUM (test code = MMOL/L 1.12-1.32 POCCA) POC LACTIC [id number] 09:12:00 Test Item Value Reference Range Interpretation Comments POC LACTIC ACID (test code = POCLAC) mmol/l 0.9-1.7 POC [id number] 09:12:00 Test Item Value Reference Range Interpretation Comments POC GLUCOSE (test code = POCGLU) MG/DL 70-110 POC ARTERIAL BLOOD [id number] 09:12:00 Test Item Value Reference Range Interpretation Comments POC ARTERIAL BLOOD GAS PH (test 7.390 7.35-7.45 N code = POCPHA) POC ARTERIAL BLOOD GAS PCO2 (test 41.0 mmHg 35.0-45 N code = KIIDQN3S) POC TCO2 ARTERIAL (test code = 26.1 POCTCO2) POC ARTERIAL BLOOD GAS PO2 (test 178.3 mmHg 80-100.0 H code = UCVCX4J) POC HCO3 ARTERIAL (test code = 24.8 MMOL/L 22.0-26.0 N KLYFIM5V) POC BASE EXCESS (test code = -0.2 MMOL/L -4.0-4.0 N POCBEA) POC O2 SATURATION (test code = 99.6 % 90-100 N POCO2S) [id number] 09:12:00 Test Item Value Reference Range Interpretation Comments SODIUM (test code = NA/ABG) 141 MEQ/L 134-147 N [id number] 09:12:00 Test Item Value Reference Range Interpretation Comments POTASSIUM (test code = K/ABG) 3.6 MEQ/L 3.4-5.0 N [id number] 09:12:00 Test Item Value Reference Range Interpretation Comments CHLORIDE (test code = CL/ABG) MEQ/L 100-108 CREATININE [id number] 09:12:00 Test Item Value Reference Range Interpretation Comments CREATININE ABG (test code = CREAABG) mg/dL 0.8-1.3 [id number] 09:12:00 Test Item Value Reference Range Interpretation Comments HEMOGLOBIN (test code = HGB/ABG) G/DL 12.5-16.9 [id number] 09:12:00 Test Item Value Reference Range Interpretation Comments HEMATOCRIT (test code = HCT/ABG) % 37.5-50.7 POC IONIZED [id number] 09:12:00 Test Item Value Reference Range Interpretation Comments POC IONIZED CALCIUM (test code = 1.15 MMOL/L 1.12-1.32 N POCCA) POC LACTIC [id number] 09:12:00 Test Item Value Reference Range Interpretation Comments POC LACTIC ACID (test code = POCLAC) mmol/l 0.9-1.7 POC [id number] 09:12:00 Test Item Value Reference Range Interpretation Comments POC GLUCOSE (test code = POCGLU) MG/DL 70-110 POC ARTERIAL BLOOD [id number] 09:12:00 Test Item Value Reference Range Interpretation Comments POC ARTERIAL BLOOD GAS PH (test 7.390 7.35-7.45 N code = POCPHA) POC ARTERIAL BLOOD GAS PCO2 (test 41.0 mmHg 35.0-45 N code = LJSJWX2G) POC TCO2 ARTERIAL (test code = 26.1 POCTCO2) POC ARTERIAL BLOOD GAS PO2 (test 178.3 mmHg 80-100.0 H code = GXEAI7A) POC HCO3 ARTERIAL (test code = 24.8 MMOL/L 22.0-26.0 N AOTQVC9X) POC BASE EXCESS (test code = -0.2 MMOL/L -4.0-4.0 N POCBEA) POC O2 SATURATION (test code = 99.6 % 90-100 N POCO2S) [id number] 09:12:00 Test Item Value Reference Range Interpretation Comments SODIUM (test code = NA/ABG) 141 MEQ/L 134-147 N [id number] 09:12:00 Test Item Value Reference Range Interpretation Comments POTASSIUM (test code = K/ABG) 3.6 MEQ/L 3.4-5.0 N [id number] 09:12:00 Test Item Value Reference Range Interpretation Comments CHLORIDE (test code = CL/ABG) MEQ/L 100-108 CREATININE [id number] 09:12:00 Test Item Value Reference Range Interpretation Comments CREATININE ABG (test code = CREAABG) mg/dL 0.8-1.3 [id number] 09:12:00 Test Item Value Reference Range Interpretation Comments HEMOGLOBIN (test code = HGB/ABG) G/DL 12.5-16.9 [id number] 09:12:00 Test Item Value Reference Range Interpretation Comments HEMATOCRIT (test code = HCT/ABG) % 37.5-50.7 POC IONIZED [id number] 09:12:00 Test Item Value Reference Range Interpretation Comments POC IONIZED CALCIUM (test code = 1.15 MMOL/L 1.12-1.32 N POCCA) POC LACTIC [id number] 09:12:00 Test Item Value Reference Range Interpretation Comments POC LACTIC ACID (test code = POCLAC) mmol/l 0.9-1.7 POC [id number] 09:12:00 Test Item Value Reference Range Interpretation Comments POC GLUCOSE (test code = POCGLU) 161 MG/DL 70-110 H POC ARTERIAL BLOOD [id number] 09:12:00 Test Item Value Reference Range Interpretation Comments POC ARTERIAL BLOOD GAS PH (test 7.390 7.35-7.45 N code = POCPHA) POC ARTERIAL BLOOD GAS PCO2 (test 41.0 mmHg 35.0-45 N code = TNKMKD5Q) POC TCO2 ARTERIAL (test code = 26.1 POCTCO2) POC ARTERIAL BLOOD GAS PO2 (test 178.3 mmHg 80-100.0 H code = MVUGJ1C) POC HCO3 ARTERIAL (test code = 24.8 MMOL/L 22.0-26.0 N SXPVTD2U) POC BASE EXCESS (test code = -0.2 MMOL/L -4.0-4.0 N POCBEA) POC O2 SATURATION (test code = 99.6 % 90-100 N POCO2S) [id number] 09:12:00 Test Item Value Reference Range Interpretation Comments SODIUM (test code = NA/ABG) 141 MEQ/L 134-147 N [id number] 09:12:00 Test Item Value Reference Range Interpretation Comments POTASSIUM (test code = K/ABG) 3.6 MEQ/L 3.4-5.0 N [id number] 09:12:00 Test Item Value Reference Range Interpretation Comments CHLORIDE (test code = CL/ABG) MEQ/L 100-108 CREATININE [id number] 09:12:00 Test Item Value Reference Range Interpretation Comments CREATININE ABG (test code = CREAABG) mg/dL 0.8-1.3 [id number] 09:12:00 Test Item Value Reference Range Interpretation Comments HEMOGLOBIN (test code = HGB/ABG) G/DL 12.5-16.9 [id number] 09:12:00 Test Item Value Reference Range Interpretation Comments HEMATOCRIT (test code = HCT/ABG) % 37.5-50.7 POC IONIZED [id number] 09:12:00 Test Item Value Reference Range Interpretation Comments POC IONIZED CALCIUM (test code = 1.15 MMOL/L 1.12-1.32 N POCCA) POC LACTIC [id number] 09:12:00 Test Item Value Reference Range Interpretation Comments POC LACTIC ACID (test code = 0.9 mmol/l 0.9-1.7 N POCLAC) POC [id number] 09:12:00 Test Item Value Reference Range Interpretation Comments POC GLUCOSE (test code = POCGLU) 161 MG/DL 70-110 H POC ARTERIAL BLOOD [id number] 09:12:00 Test Item Value Reference Range Interpretation Comments POC ARTERIAL BLOOD GAS PH (test 7.390 7.35-7.45 N code = POCPHA) POC ARTERIAL BLOOD GAS PCO2 (test 41.0 mmHg 35.0-45 N code = [id number]) POC TCO2 ARTERIAL (test code = 26.1 POCTCO2) POC ARTERIAL BLOOD GAS PO2 (test 178.3 mmHg 80-100.0 H code = [id number]) POC HCO3 ARTERIAL (test code = 24.8 MMOL/L 22.0-26.0 N [id number]) POC BASE EXCESS (test code = -0.2 MMOL/L -4.0-4.0 N POCBEA) POC O2 SATURATION (test code = 99.6 % 90-100 N POCO2S) [id number] 09:12:00 Test Item Value Reference Range Interpretation Comments SODIUM (test code = NA/ABG) 141 MEQ/L 134-147 N [id number] 09:12:00 Test Item Value Reference Range Interpretation Comments POTASSIUM (test code = K/ABG) 3.6 MEQ/L 3.4-5.0 N [id number] 09:12:00 Test Item Value Reference Range Interpretation Comments CHLORIDE (test code = CL/ABG) MEQ/L 100-108 CREATININE [id number] 09:12:00 Test Item Value Reference Range Interpretation Comments CREATININE ABG (test code = CREAABG) mg/dL 0.8-1.3 [id number] 09:12:00 Test Item Value Reference Range Interpretation Comments HEMOGLOBIN (test code = HGB/ABG) G/DL 12.5-16.9 [id number] 09:12:00 Test Item Value Reference Range Interpretation Comments HEMATOCRIT (test code = HCT/ABG) 39 % 37.5-50.7 N POC IONIZED [id number] 09:12:00 Test Item Value Reference Range Interpretation Comments POC IONIZED CALCIUM (test code = 1.15 MMOL/L 1.12-1.32 N POCCA) POC LACTIC [id number] 09:12:00 Test Item Value Reference Range Interpretation Comments POC LACTIC ACID (test code = 0.9 mmol/l 0.9-1.7 N POCLAC) POC [id number] 09:12:00 Test Item Value Reference Range Interpretation Comments POC GLUCOSE (test code = POCGLU) 161 MG/DL 70-110 H POC ARTERIAL BLOOD [id number] 09:12:00 Test Item Value Reference Range Interpretation Comments POC ARTERIAL BLOOD GAS PH (test 7.390 7.35-7.45 N code = POCPHA) POC ARTERIAL BLOOD GAS PCO2 (test 41.0 mmHg 35.0-45 N code = BQOTCS0V) POC TCO2 ARTERIAL (test code = 26.1 POCTCO2) POC ARTERIAL BLOOD GAS PO2 (test 178.3 mmHg 80-100.0 H code = DJYOU8G) POC HCO3 ARTERIAL (test code = 24.8 MMOL/L 22.0-26.0 N [id number]) POC BASE EXCESS (test code = -0.2 MMOL/L -4.0-4.0 N POCBEA) POC O2 SATURATION (test code = 99.6 % 90-100 N POCO2S) [id number] 09:12:00 Test Item Value Reference Range Interpretation Comments SODIUM (test code = NA/ABG) 141 MEQ/L 134-147 N [id number] 09:12:00 Test Item Value Reference Range Interpretation Comments POTASSIUM (test code = K/ABG) 3.6 MEQ/L 3.4-5.0 N [id number] 09:12:00 Test Item Value Reference Range Interpretation Comments CHLORIDE (test code = CL/ABG) MEQ/L 100-108 CREATININE [id number] 09:12:00 Test Item Value Reference Range Interpretation Comments CREATININE ABG (test code = CREAABG) mg/dL 0.8-1.3 [id number] 09:12:00 Test Item Value Reference Range Interpretation Comments HEMOGLOBIN (test code = HGB/ABG) 13.1 G/DL 12.5-16.9 N [id number] 09:12:00 Test Item Value Reference Range Interpretation Comments HEMATOCRIT (test code = HCT/ABG) 39 % 37.5-50.7 N POC IONIZED [id number] 09:12:00 Test Item Value Reference Range Interpretation Comments POC IONIZED CALCIUM (test code = 1.15 MMOL/L 1.12-1.32 N POCCA) POC LACTIC [id number] 09:12:00 Test Item Value Reference Range Interpretation Comments POC LACTIC ACID (test code = 0.9 mmol/l 0.9-1.7 N POCLAC) POC [id number] 09:12:00 Test Item Value Reference Range Interpretation Comments POC GLUCOSE (test code = POCGLU) 161 MG/DL 70-110 H POC ARTERIAL BLOOD [id number] 09:12:00 Test Item Value Reference Range Interpretation Comments POC ARTERIAL BLOOD GAS PH (test 7.390 7.35-7.45 N code = POCPHA) POC ARTERIAL BLOOD GAS PCO2 (test 41.0 mmHg 35.0-45 N code = TBSIAT3J) POC TCO2 ARTERIAL (test code = 26.1 POCTCO2) POC ARTERIAL BLOOD GAS PO2 (test 178.3 mmHg 80-100.0 H code = WRRNM3R) POC HCO3 ARTERIAL (test code = 24.8 MMOL/L 22.0-26.0 N JQCIPQ5K) POC BASE EXCESS (test code = -0.2 MMOL/L -4.0-4.0 N POCBEA) POC O2 SATURATION (test code = 99.6 % 90-100 N POCO2S) [id number] 09:12:00 Test Item Value Reference Range Interpretation Comments SODIUM (test code = NA/ABG) 141 MEQ/L 134-147 N [id number] 09:12:00 Test Item Value Reference Range Interpretation Comments POTASSIUM (test code = K/ABG) 3.6 MEQ/L 3.4-5.0 N [id number] 09:12:00 Test Item Value Reference Range Interpretation Comments CHLORIDE (test code = CL/ABG) 106 MEQ/L 100-108 N CREATININE [id number] 09:12:00 Test Item Value Reference Range Interpretation Comments CREATININE ABG (test code = CREAABG) mg/dL 0.8-1.3 [id number] 09:12:00 Test Item Value Reference Range Interpretation Comments HEMOGLOBIN (test code = HGB/ABG) 13.1 G/DL 12.5-16.9 N [id number] 09:12:00 Test Item Value Reference Range Interpretation Comments HEMATOCRIT (test code = HCT/ABG) 39 % 37.5-50.7 N POC IONIZED [id number] 09:12:00 Test Item Value Reference Range Interpretation Comments POC IONIZED CALCIUM (test code = 1.15 MMOL/L 1.12-1.32 N POCCA) POC LACTIC [id number] 09:12:00 Test Item Value Reference Range Interpretation Comments POC LACTIC ACID (test code = 0.9 mmol/l 0.9-1.7 N POCLAC) POC [id number] 09:12:00 Test Item Value Reference Range Interpretation Comments POC GLUCOSE (test code = POCGLU) 161 MG/DL 70-110 H POC ARTERIAL BLOOD [id number] 09:12:00 Test Item Value Reference Range Interpretation Comments POC ARTERIAL BLOOD GAS PH (test 7.390 7.35-7.45 N code = POCPHA) POC ARTERIAL BLOOD GAS PCO2 (test 41.0 mmHg 35.0-45 N code = DOKYWW5Q) POC TCO2 ARTERIAL (test code = 26.1 POCTCO2) POC ARTERIAL BLOOD GAS PO2 (test 178.3 mmHg 80-100.0 H code = UUFRA2O) POC HCO3 ARTERIAL (test code = 24.8 MMOL/L 22.0-26.0 N UDLTJK6A) POC BASE EXCESS (test code = -0.2 MMOL/L -4.0-4.0 N POCBEA) POC O2 SATURATION (test code = 99.6 % 90-100 N POCO2S) [id number] 09:12:00 Test Item Value Reference Range Interpretation Comments SODIUM (test code = NA/ABG) 141 MEQ/L 134-147 N [id number] 09:12:00 Test Item Value Reference Range Interpretation Comments POTASSIUM (test code = K/ABG) 3.6 MEQ/L 3.4-5.0 N [id number] 09:12:00 Test Item Value Reference Range Interpretation Comments CHLORIDE (test code = CL/ABG) 106 MEQ/L 100-108 N CREATININE [id number] 09:12:00 Test Item Value Reference Range Interpretation Comments CREATININE ABG (test code = 1.0 mg/dL 0.8-1.3 N CREAABG) [id number] 09:12:00 Test Item Value Reference Range Interpretation Comments HEMOGLOBIN (test code = HGB/ABG) 13.1 G/DL 12.5-16.9 N [id number] 09:12:00 Test Item Value Reference Range Interpretation Comments HEMATOCRIT (test code = HCT/ABG) 39 % 37.5-50.7 N POC IONIZED [id number] 09:12:00 Test Item Value Reference Range Interpretation Comments POC IONIZED CALCIUM (test code = 1.15 MMOL/L 1.12-1.32 N POCCA) POC LACTIC [id number] 09:12:00 Test Item Value Reference Range Interpretation Comments POC LACTIC ACID (test code = 0.9 mmol/l 0.9-1.7 N POCLAC) POC [id number] 09:12:00 Test Item Value Reference Range Interpretation Comments POC GLUCOSE (test code = POCGLU) 161 MG/DL 70-110 H [id number] 07:15:00 Test Item Value Reference Range Interpretation Comments ACT-ISTAT (test code 120 SEC 74-137 N 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[place] [id number] 07:08:00 Test Item Value Reference Range Interpretation Comments HEMOGLOBIN (test code = HGB/ABG) G/DL 12.5-16.9 [id number] 07:08:00 Test Item Value Reference Range Interpretation Comments HEMATOCRIT (test code = HCT/ABG) % 37.5-50.7 POC IONIZED [id number] 07:08:00 Test Item Value Reference Range Interpretation Comments POC IONIZED CALCIUM (test code = MMOL/L 1.12-1.32 POCCA) POC LACTIC [id number] 07:08:00 Test Item Value Reference Range Interpretation Comments POC LACTIC ACID (test code = POCLAC) mmol/l 0.9-1.7 POC [id number] 07:08:00 Test Item Value Reference Range Interpretation Comments POC GLUCOSE (test code = POCGLU) MG/DL 70-110 POC ARTERIAL BLOOD [id number] 07:08:00 Test Item Value Reference Range Interpretation Comments POC ARTERIAL BLOOD GAS PH (test 7.396 7.35-7.45 N code = POCPHA) POC ARTERIAL BLOOD GAS PCO2 (test 45.2 mmHg 35.0-45 H code = XIHAWL8D) POC TCO2 ARTERIAL (test code = 29.2 POCTCO2) POC ARTERIAL BLOOD GAS PO2 (test 83.0 mmHg 80-100.0 N code = INBPF7S) POC HCO3 ARTERIAL (test code = 27.8 MMOL/L 22.0-26.0 H DMTPII2M) POC BASE EXCESS (test code = 2.3 MMOL/L -4.0-4.0 N POCBEA) POC O2 SATURATION (test code = 96.0 % 90-100 N POCO2S) [id number] 07:08:00 Test Item Value Reference Range Interpretation Comments SODIUM (test code = NA/ABG) 141 MEQ/L 134-147 N [id number] 07:08:00 Test Item Value Reference Range Interpretation Comments POTASSIUM (test code = K/ABG) 3.5 MEQ/L 3.4-5.0 N [id number] 07:08:00 Test Item Value Reference Range Interpretation Comments CHLORIDE (test code = CL/ABG) MEQ/L 100-108 CREATININE [id number] 07:08:00 Test Item Value Reference Range Interpretation Comments CREATININE ABG (test code = CREAABG) mg/dL 0.8-1.3 [id number] 07:08:00 Test Item Value Reference Range Interpretation Comments HEMOGLOBIN (test code = HGB/ABG) G/DL 12.5-16.9 [id number] 07:08:00 Test Item Value Reference Range Interpretation Comments HEMATOCRIT (test code = HCT/ABG) % 37.5-50.7 POC IONIZED [id number] 07:08:00 Test Item Value Reference Range Interpretation Comments POC IONIZED CALCIUM (test code = MMOL/L 1.12-1.32 POCCA) POC LACTIC [id number] 07:08:00 Test Item Value Reference Range Interpretation Comments POC LACTIC ACID (test code = POCLAC) mmol/l 0.9-1.7 POC [id number] 07:08:00 Test Item Value Reference Range Interpretation Comments POC GLUCOSE (test code = POCGLU) MG/DL 70-110 POC ARTERIAL BLOOD [id number] 07:08:00 Test Item Value Reference Range Interpretation Comments POC ARTERIAL BLOOD GAS PH (test 7.396 7.35-7.45 N code = POCPHA) POC ARTERIAL BLOOD GAS PCO2 (test 45.2 mmHg 35.0-45 H code = YCKYSC7R) POC TCO2 ARTERIAL (test code = 29.2 POCTCO2) POC ARTERIAL BLOOD GAS PO2 (test 83.0 mmHg 80-100.0 N code = UHNSQ7F) POC HCO3 ARTERIAL (test code = 27.8 MMOL/L 22.0-26.0 H QPBDTD9O) POC BASE EXCESS (test code = 2.3 MMOL/L -4.0-4.0 N POCBEA) POC O2 SATURATION (test code = 96.0 % 90-100 N POCO2S) [id number] 07:08:00 Test Item Value Reference Range Interpretation Comments SODIUM (test code = NA/ABG) 141 MEQ/L 134-147 N [id number] 07:08:00 Test Item Value Reference Range Interpretation Comments POTASSIUM (test code = K/ABG) 3.5 MEQ/L 3.4-5.0 N [id number] 07:08:00 Test Item Value Reference Range Interpretation Comments CHLORIDE (test code = CL/ABG) MEQ/L 100-108 CREATININE [id number] 07:08:00 Test Item Value Reference Range Interpretation Comments CREATININE ABG (test code = CREAABG) mg/dL 0.8-1.3 [id number] 07:08:00 Test Item Value Reference Range Interpretation Comments HEMOGLOBIN (test code = HGB/ABG) G/DL 12.5-16.9 [id number] 07:08:00 Test Item Value Reference Range Interpretation Comments HEMATOCRIT (test code = HCT/ABG) % 37.5-50.7 POC IONIZED [id number] 07:08:00 Test Item Value Reference Range Interpretation Comments POC IONIZED CALCIUM (test code = 1.19 MMOL/L 1.12-1.32 N POCCA) POC LACTIC [id number] 07:08:00 Test Item Value Reference Range Interpretation Comments POC LACTIC ACID (test code = POCLAC) mmol/l 0.9-1.7 POC [id number] 07:08:00 Test Item Value Reference Range Interpretation Comments POC GLUCOSE (test code = POCGLU) MG/DL 70-110 POC ARTERIAL BLOOD [id number] 07:08:00 Test Item Value Reference Range Interpretation Comments POC ARTERIAL BLOOD GAS PH (test 7.396 7.35-7.45 N code = POCPHA) POC ARTERIAL BLOOD GAS PCO2 (test 45.2 mmHg 35.0-45 H code = KZGXFF3M) POC TCO2 ARTERIAL (test code = 29.2 POCTCO2) POC ARTERIAL BLOOD GAS PO2 (test 83.0 mmHg 80-100.0 N code = CBCYE7S) POC HCO3 ARTERIAL (test code = 27.8 MMOL/L 22.0-26.0 H TMFYCT9C) POC BASE EXCESS (test code = 2.3 MMOL/L -4.0-4.0 N POCBEA) POC O2 SATURATION (test code = 96.0 % 90-100 N POCO2S) [id number] 07:08:00 Test Item Value Reference Range Interpretation Comments SODIUM (test code = NA/ABG) 141 MEQ/L 134-147 N [id number] 07:08:00 Test Item Value Reference Range Interpretation Comments POTASSIUM (test code = K/ABG) 3.5 MEQ/L 3.4-5.0 N [id number] 07:08:00 Test Item Value Reference Range Interpretation Comments CHLORIDE (test code = CL/ABG) MEQ/L 100-108 CREATININE [id number] 07:08:00 Test Item Value Reference Range Interpretation Comments CREATININE ABG (test code = CREAABG) mg/dL 0.8-1.3 [id number] 07:08:00 Test Item Value Reference Range Interpretation Comments HEMOGLOBIN (test code = HGB/ABG) G/DL 12.5-16.9 [id number] 07:08:00 Test Item Value Reference Range Interpretation Comments HEMATOCRIT (test code = HCT/ABG) % 37.5-50.7 POC IONIZED [id number] 07:08:00 Test Item Value Reference Range Interpretation Comments POC IONIZED CALCIUM (test code = 1.19 MMOL/L 1.12-1.32 N POCCA) POC LACTIC [id number] 07:08:00 Test Item Value Reference Range Interpretation Comments POC LACTIC ACID (test code = POCLAC) mmol/l 0.9-1.7 POC [id number] 07:08:00 Test Item Value Reference Range Interpretation Comments POC GLUCOSE (test code = POCGLU) 136 MG/DL 70-110 H POC ARTERIAL BLOOD [id number] 07:08:00 Test Item Value Reference Range Interpretation Comments POC ARTERIAL BLOOD GAS PH (test 7.396 7.35-7.45 N code = POCPHA) POC ARTERIAL BLOOD GAS PCO2 (test 45.2 mmHg 35.0-45 H code = HNXZKT5A) POC TCO2 ARTERIAL (test code = 29.2 POCTCO2) POC ARTERIAL BLOOD GAS PO2 (test 83.0 mmHg 80-100.0 N code = RZPRZ0C) POC HCO3 ARTERIAL (test code = 27.8 MMOL/L 22.0-26.0 H JXHAZK4R) POC BASE EXCESS (test code = 2.3 MMOL/L -4.0-4.0 N POCBEA) POC O2 SATURATION (test code = 96.0 % 90-100 N POCO2S) [id number] 07:08:00 Test Item Value Reference Range Interpretation Comments SODIUM (test code = NA/ABG) 141 MEQ/L 134-147 N [id number] 07:08:00 Test Item Value Reference Range Interpretation Comments POTASSIUM (test code = K/ABG) 3.5 MEQ/L 3.4-5.0 N [id number] 07:08:00 Test Item Value Reference Range Interpretation Comments CHLORIDE (test code = CL/ABG) MEQ/L 100-108 CREATININE [id number] 07:08:00 Test Item Value Reference Range Interpretation Comments CREATININE ABG (test code = CREAABG) mg/dL 0.8-1.3 [id number] 07:08:00 Test Item Value Reference Range Interpretation Comments HEMOGLOBIN (test code = HGB/ABG) G/DL 12.5-16.9 [id number] 07:08:00 Test Item Value Reference Range Interpretation Comments HEMATOCRIT (test code = HCT/ABG) % 37.5-50.7 POC IONIZED [id number] 07:08:00 Test Item Value Reference Range Interpretation Comments POC IONIZED CALCIUM (test code = 1.19 MMOL/L 1.12-1.32 N POCCA) POC LACTIC [id number] 07:08:00 Test Item Value Reference Range Interpretation Comments POC LACTIC ACID (test code = 1.5 mmol/l 0.9-1.7 N POCLAC) POC [id number] 07:08:00 Test Item Value Reference Range Interpretation Comments POC GLUCOSE (test code = POCGLU) 136 MG/DL 70-110 H POC ARTERIAL BLOOD [id number] 07:08:00 Test Item Value Reference Range Interpretation Comments POC ARTERIAL BLOOD GAS PH (test 7.396 7.35-7.45 N code = POCPHA) POC ARTERIAL BLOOD GAS PCO2 (test 45.2 mmHg 35.0-45 H code = GSXJNW1O) POC TCO2 ARTERIAL (test code = 29.2 POCTCO2) POC ARTERIAL BLOOD GAS PO2 (test 83.0 mmHg 80-100.0 N code = PLRQT5O) POC HCO3 ARTERIAL (test code = 27.8 MMOL/L 22.0-26.0 H EJHARO4K) POC BASE EXCESS (test code = 2.3 MMOL/L -4.0-4.0 N POCBEA) POC O2 SATURATION (test code = 96.0 % 90-100 N POCO2S) [id number] 07:08:00 Test Item Value Reference Range Interpretation Comments SODIUM (test code = NA/ABG) 141 MEQ/L 134-147 N [id number] 07:08:00 Test Item Value Reference Range Interpretation Comments POTASSIUM (test code = K/ABG) 3.5 MEQ/L 3.4-5.0 N [id number] 07:08:00 Test Item Value Reference Range Interpretation Comments CHLORIDE (test code = CL/ABG) MEQ/L 100-108 CREATININE [id number] 07:08:00 Test Item Value Reference Range Interpretation Comments CREATININE ABG (test code = CREAABG) mg/dL 0.8-1.3 [id number] 07:08:00 Test Item Value Reference Range Interpretation Comments HEMOGLOBIN (test code = HGB/ABG) G/DL 12.5-16.9 [id number] 07:08:00 Test Item Value Reference Range Interpretation Comments HEMATOCRIT (test code = HCT/ABG) 40 % 37.5-50.7 N POC IONIZED [id number] 07:08:00 Test Item Value Reference Range Interpretation Comments POC IONIZED CALCIUM (test code = 1.19 MMOL/L 1.12-1.32 N POCCA) POC LACTIC [id number] 07:08:00 Test Item Value Reference Range Interpretation Comments POC LACTIC ACID (test code = 1.5 mmol/l 0.9-1.7 N POCLAC) POC [id number] 07:08:00 Test Item Value Reference Range Interpretation Comments POC GLUCOSE (test code = POCGLU) 136 MG/DL 70-110 H POC ARTERIAL BLOOD [id number] 07:08:00 Test Item Value Reference Range Interpretation Comments POC ARTERIAL BLOOD GAS PH (test 7.396 7.35-7.45 N code = POCPHA) POC ARTERIAL BLOOD GAS PCO2 (test 45.2 mmHg 35.0-45 H code = VTMGEU5O) POC TCO2 ARTERIAL (test code = 29.2 POCTCO2) POC ARTERIAL BLOOD GAS PO2 (test 83.0 mmHg 80-100.0 N code = IZCOW0W) POC HCO3 ARTERIAL (test code = 27.8 MMOL/L 22.0-26.0 H MXKGDE1J) POC BASE EXCESS (test code = 2.3 MMOL/L -4.0-4.0 N POCBEA) POC O2 SATURATION (test code = 96.0 % 90-100 N POCO2S) [id number] 07:08:00 Test Item Value Reference Range Interpretation Comments SODIUM (test code = NA/ABG) 141 MEQ/L 134-147 N [id number] 07:08:00 Test Item Value Reference Range Interpretation Comments POTASSIUM (test code = K/ABG) 3.5 MEQ/L 3.4-5.0 N [id number] 07:08:00 Test Item Value Reference Range Interpretation Comments CHLORIDE (test code = CL/ABG) MEQ/L 100-108 CREATININE [id number] 07:08:00 Test Item Value Reference Range Interpretation Comments CREATININE ABG (test code = CREAABG) mg/dL 0.8-1.3 [id number] 07:08:00 Test Item Value Reference Range Interpretation Comments HEMOGLOBIN (test code = HGB/ABG) 13.7 G/DL 12.5-16.9 N [id number] 07:08:00 Test Item Value Reference Range Interpretation Comments HEMATOCRIT (test code = HCT/ABG) 40 % 37.5-50.7 N POC IONIZED [id number] 07:08:00 Test Item Value Reference Range Interpretation Comments POC IONIZED CALCIUM (test code = 1.19 MMOL/L 1.12-1.32 N POCCA) POC LACTIC [id number] 07:08:00 Test Item Value Reference Range Interpretation Comments POC LACTIC ACID (test code = 1.5 mmol/l 0.9-1.7 N POCLAC) POC [id number] 07:08:00 Test Item Value Reference Range Interpretation Comments POC GLUCOSE (test code = POCGLU) 136 MG/DL 70-110 H POC ARTERIAL BLOOD [id number] 07:08:00 Test Item Value Reference Range Interpretation Comments POC ARTERIAL BLOOD GAS PH (test 7.396 7.35-7.45 N code = POCPHA) POC ARTERIAL BLOOD GAS PCO2 (test 45.2 mmHg 35.0-45 H code = PSMZYT4U) POC TCO2 ARTERIAL (test code = 29.2 POCTCO2) POC ARTERIAL BLOOD GAS PO2 (test 83.0 mmHg 80-100.0 N code = CYIGQ0D) POC HCO3 ARTERIAL (test code = 27.8 MMOL/L 22.0-26.0 H CHHRRE9D) POC BASE EXCESS (test code = 2.3 MMOL/L -4.0-4.0 N POCBEA) POC O2 SATURATION (test code = 96.0 % 90-100 N POCO2S) [id number] 07:08:00 Test Item Value Reference Range Interpretation Comments SODIUM (test code = NA/ABG) 141 MEQ/L 134-147 N [id number] 07:08:00 Test Item Value Reference Range Interpretation Comments POTASSIUM (test code = K/ABG) 3.5 MEQ/L 3.4-5.0 N [id number] 07:08:00 Test Item Value Reference Range Interpretation Comments CHLORIDE (test code = CL/ABG) 105 MEQ/L 100-108 N CREATININE [id number] 07:08:00 Test Item Value Reference Range Interpretation Comments CREATININE ABG (test code = CREAABG) mg/dL 0.8-1.3 [id number] 07:08:00 Test Item Value Reference Range Interpretation Comments HEMOGLOBIN (test code = HGB/ABG) 13.7 G/DL 12.5-16.9 N [id number] 07:08:00 Test Item Value Reference Range Interpretation Comments HEMATOCRIT (test code = HCT/ABG) 40 % 37.5-50.7 N POC IONIZED [id number] 07:08:00 Test Item Value Reference Range Interpretation Comments POC IONIZED CALCIUM (test code = 1.19 MMOL/L 1.12-1.32 N POCCA) POC LACTIC [id number] 07:08:00 Test Item Value Reference Range Interpretation Comments POC LACTIC ACID (test code = 1.5 mmol/l 0.9-1.7 N POCLAC) POC [id number] 07:08:00 Test Item Value Reference Range Interpretation Comments POC GLUCOSE (test code = POCGLU) 136 MG/DL 70-110 H POC ARTERIAL BLOOD [id number] 07:08:00 Test Item Value Reference Range Interpretation Comments POC ARTERIAL BLOOD GAS PH (test 7.396 7.35-7.45 N code = POCPHA) POC ARTERIAL BLOOD GAS PCO2 (test 45.2 mmHg 35.0-45 H code = FUGVUI6D) POC TCO2 ARTERIAL (test code = 29.2 POCTCO2) POC ARTERIAL BLOOD GAS PO2 (test 83.0 mmHg 80-100.0 N code = WXZLO0K) POC HCO3 ARTERIAL (test code = 27.8 MMOL/L 22.0-26.0 H DDCQPJ0J) POC BASE EXCESS (test code = 2.3 MMOL/L -4.0-4.0 N POCBEA) POC O2 SATURATION (test code = 96.0 % 90-100 N POCO2S) [id number] 07:08:00 Test Item Value Reference Range Interpretation Comments SODIUM (test code = NA/ABG) 141 MEQ/L 134-147 N [id number] 07:08:00 Test Item Value Reference Range Interpretation Comments POTASSIUM (test code = K/ABG) 3.5 MEQ/L 3.4-5.0 N [id number] 07:08:00 Test Item Value Reference Range Interpretation Comments CHLORIDE (test code = CL/ABG) 105 MEQ/L 100-108 N CREATININE [id number] 07:08:00 Test Item Value Reference Range Interpretation Comments CREATININE ABG (test code = 1.1 mg/dL 0.8-1.3 N CREAABG) [id number] 07:08:00 Test Item Value Reference Range Interpretation Comments HEMOGLOBIN (test code = HGB/ABG) 13.7 G/DL 12.5-16.9 N [id number] 07:08:00 Test Item Value Reference Range Interpretation Comments HEMATOCRIT (test code = HCT/ABG) 40 % 37.5-50.7 N POC IONIZED [id number] 07:08:00 Test Item Value Reference Range Interpretation Comments POC IONIZED CALCIUM (test code = 1.19 MMOL/L 1.12-1.32 N POCCA) POC LACTIC [id number] 07:08:00 Test Item Value Reference Range Interpretation Comments POC LACTIC ACID (test code = 1.5 mmol/l 0.9-1.7 N POCLAC) POC [id number] 07:08:00 Test Item Value Reference Range Interpretation Comments POC GLUCOSE (test code = POCGLU) 136 MG/DL 70-110 H POC ARTERIAL BLOOD [id number] 07:08:00 Test Item Value Reference Range Interpretation Comments POC ARTERIAL BLOOD GAS PH (test 7.396 7.35-7.45 N code = POCPHA) POC ARTERIAL BLOOD GAS PCO2 (test 45.2 mmHg 35.0-45 H code = DBMVBZ2C) POC TCO2 ARTERIAL (test code = 29.2 POCTCO2) POC ARTERIAL BLOOD GAS PO2 (test 83.0 mmHg 80-100.0 N code = LAJVR8X) POC HCO3 ARTERIAL (test code = 27.8 MMOL/L 22.0-26.0 H TMHZHF8H) POC BASE EXCESS (test code = 2.3 MMOL/L -4.0-4.0 N POCBEA) POC O2 SATURATION (test code = 96.0 % 90-100 N POCO2S) [id number] 07:08:00 Test Item Value Reference Range Interpretation Comments SODIUM (test code = NA/ABG) MEQ/L 134-147 [id number] 07:08:00 Test Item Value Reference Range Interpretation Comments POTASSIUM (test code = K/ABG) MEQ/L 3.4-5.0 [id number] 07:08:00 Test Item Value Reference Range Interpretation Comments CHLORIDE (test code = CL/ABG) MEQ/L 100-108 CREATININE [id number] 07:08:00 Test Item Value Reference Range Interpretation Comments CREATININE ABG (test code = CREAABG) mg/dL 0.8-1.3 [id number] 07:08:00 Test Item Value Reference Range Interpretation Comments HEMOGLOBIN (test code = HGB/ABG) G/DL 12.5-16.9 [id number] 07:08:00 Test Item Value Reference Range Interpretation Comments HEMATOCRIT (test code = HCT/ABG) % 37.5-50.7 POC IONIZED [id number] 07:08:00 Test Item Value Reference Range Interpretation Comments POC IONIZED CALCIUM (test code = MMOL/L 1.12-1.32 POCCA) POC LACTIC [id number] 07:08:00 Test Item Value Reference Range Interpretation Comments POC LACTIC ACID (test code = POCLAC) mmol/l 0.9-1.7 POC [id number] 07:08:00 Test Item Value Reference Range Interpretation Comments POC GLUCOSE (test code = POCGLU) MG/DL 70-110 POC ARTERIAL BLOOD [id number] 07:08:00 Test Item Value Reference Range Interpretation Comments POC ARTERIAL BLOOD GAS PH (test 7.396 7.35-7.45 N code = POCPHA) POC ARTERIAL BLOOD GAS PCO2 (test 45.2 mmHg 35.0-45 H code = [id number]) POC TCO2 ARTERIAL (test code = 29.2 POCTCO2) POC ARTERIAL BLOOD GAS PO2 (test 83.0 mmHg 80-100.0 N code = POURS9S) POC HCO3 ARTERIAL (test code = 27.8 MMOL/L 22.0-26.0 H [id number]) POC BASE EXCESS (test code = 2.3 MMOL/L -4.0-4.0 N POCBEA) POC O2 SATURATION (test code = 96.0 % 90-100 N POCO2S) [id number] 07:08:00 Test Item Value Reference Range Interpretation Comments SODIUM (test code = NA/ABG) 141 MEQ/L 134-147 N [id number] 07:08:00 Test Item Value Reference Range Interpretation Comments POTASSIUM (test code = K/ABG) MEQ/L 3.4-5.0 [id number] 07:08:00 Test Item Value Reference Range Interpretation Comments CHLORIDE (test code = CL/ABG) MEQ/L 100-108 CREATININE [id number] 07:08:00 Test Item Value Reference Range Interpretation Comments CREATININE ABG (test code = CREAABG) mg/dL 0.8-1.3 B-TYPE NATRIURETIC [id number] 05:10:00 Test Item Value Reference Range Interpretation Comments B-TYPE NATRIURETIC PEPTIDE (test 35.0 PG/ML 0-100 N code = BNP) COMPREHENSIVE METABOLIC [id number] 04:48:00 Test Item Value Reference Range Interpretation Comments SODIUM (test code = NA) 142 mEq/L 134-147 N POTASSIUM (test code = 3.1 mEq/L 3.4-5.0 L K) CHLORIDE (test code = 107 mEq/L 100-108 N CL) CARBON DIOXIDE (test 27 mEq/l 21-33 code = CO2) ANION GAP (test code = 11 0-20 N GAP) GLUCOSE (test code = 112 mg/dL 70-110 H GLU) BLOOD UREA NITROGEN 15 mg/dL 7-18 (test code = BUN) GLOMERULAR FILTRATION 74.5 80-90 L Units of measure = RATE (test code = GFR) ml/mi n/1.73 m2 CREATININE (test code = 1.0 mg/dL 0.6-1.3 N CREAT) TOTAL PROTEIN (test 6.8 g/dL 6.4-8.2 N code = PROT) ALBUMIN (test code = 3.80 g/dL 3.4-5.0 N ALB) CALCIUM (test code = 9.4 mg/dL 8.0-10.5 N CA) BILIRUBIN TOTAL (test 0.50 mg/dL 0.0-1.0 N code = BILT) SGOT/AST (test code = 17 IUnit/L 15-37 N AST) SGPT/ALT (test code = 16 IUnit/L 30-65 L ALT) ALKALINE PHOSPHATASE 59 IUnit/L 20-125 N TOTAL (test code = ALKP) LIPID PROFILE (CORONARY RISK)2020-12-23 04:48:00 Test Item Value Reference Range Interpretation Comments TRIGLYCERIDES (test 117 mg/dL 40-150 N code = TRIG) CHOLESTEROL (test 141 mg/dL <200 code = CHOL) CHOLESTEROL/HDL 4.27 RATIO 3.43-4.97 N RISK ASSOCIA DONNA WITH RATIO (test code = CHOL/HDL RATIOS: RISK CHOLHDL) MALE FEMALE1/2 AVERAGE 3.43 3.27AVERAG E 4.97 4.442X AVERAGE 9.55 7.053X AVERAGE 23.39 11.04 NOTE THAT THE REFERENCE VALUE IS RELATEDTO RISK LEVELS RECOMMENDED BY THE NATL.HEART, MYAH G, AND BLOOD INST. HDL CHOLESTEROL 33.0 mg/dL 32-72 N (test code = HDL) LIPOPROTEIN LDL 96.7 mg/dL 0-100 N <100 OPTIMAL 100-129 (test code = LDL) NEAR OPTIM AL/ABOVE [id number] 89 HIGH>FC=829 DAMARIS Y HIGH*Guidelines provided by the National Choles terol EducationProgra m Adult Treatment Panel III HGBA1C%2020-12-23 04:48:00 Test Item Value Reference Range Interpretation Comments HGBA1C% (test code = HGBA1C%) 5.6 %A1C 4.8-6.0 N PROTHROMBIN [id number] 04:37:00 Test Item Value Reference Range Interpretation Comments PROTHROMBIN TIME 12.1 SECONDS 9.3-12.9 PATIENT (test code = PTP) INTERNATIONAL NORMAL 1.1 0.8-1.2 N TARGET INR BY RATIO (test code = INDICATIO N Indication INR) INR1. Prophylax is of venous thrombos is 2.0 - 3.0 (orthoped ic surgery), Proph ylaxis of venous throm bosis (other than hig h-risk surgery), Treat ment of Deep Vein Thrombosis/Pulm onary Embolism, Preve ntion of systemic emb olism - Tissue heart va lves, Acute Myocardia l Infarction (to prevent systemic emboli sm), Valvular heart disease, Atrial Fibrillation, Bileaflet mecha nical valve in aortic position.2. Mec hanical prosthetic valv es (high risk), 2. 5 - 3.5 Presence of Lup us Anticoagulant o r Antiphospholipi d Antibodies, Pre vention of systemic emb olism - Acute Myocardia l Infarction (to prevent recurrent infar ct). THROMBOPLASTIN TIME [id number] 04:37:00 Test Item Value Reference Range Interpretation Comments THROMBOPLASTIN TIME 30.1 Seconds 25.0-39.5 N Therape utic Range: PARTIAL (test code = 50.4 - 88.3 Seconds PTT) Effective 01/07/2019 CBC W/AUTO [id number] 04:32:00 Test Item Value Reference Range Interpretation Comments WHITE BLOOD CELL (test code = 6.1 x10 3/uL 4.5-11.0 N WBC) RED BLOOD CELL (test code = 4.68 x10 6/uL 4.00-5.60 N RBC) HEMOGLOBIN (test code = HGB) 13.0 g/dL 12.5-16.9 N HEMATOCRIT (test code = HCT) 41.6 % 37.5-50.7 N MEAN CELL VOLUME (test code = 88.9 fL 81.0-99.0 MCV) MEAN CELL HGB (test code = MCH) 27.8 pg 27.0-33.0 N MEAN CELL HGB CONCETRATION 31.3 g/dL 33.0-37.0 L (test code = MCHC) RED CELL DISTRIBUTION WIDTH CV 15.2 % 11.5-14.5 H (test code = RDW) RED CELL DISTRIBUTION WIDTH SD 49.6 fL 37.0-54.0 N (test code = RDW-SD) PLATELET COUNT (test code = 237 x10 3/uL 150-400 N PLT) MEAN PLATELET VOLUME (test code 10.7 fL 7.0-9.0 H = MPV) NEUTROPHIL % (test code = NT%) 49.3 % 56.0-77.0 L IMMATURE GRANULOCYTE % (test 0.3 % 0.0-2.0 N code = IG%) LYMPHOCYTE % (test code = LY%) 39.9 % 14.0-32.0 H MONOCYTE % (test code = MO%) 7.7 % 4.8-9.0 N EOSINOPHIL % (test code = EO%) 2.1 % 0.3-3.7 N BASOPHIL % (test code = BA%) 0.7 % 0.0-2.0 N NUCLEATED RBC % (test code = 0.0 % 0-0 N NRBC%) NEUTROPHIL # (test code = NT#) 2.99 x10 3/uL 2.0-7.6 N IMMATURE GRANULOCYTE # (test 0.02 x10 3/uL 0.00-0.03 N code = IG#) LYMPHOCYTE # (test code = LY#) 2.42 x10 3/uL 1.0-3.8 N MONOCYTE # (test code = MO#) 0.47 x10 3/uL 0.1-0.8 N EOSINOPHIL # (test code = EO#) 0.13 x10 3/uL 0.0-0.2 N BASOPHIL # (test code = BA#) 0.04 x10 3/uL 0.0-0.2 N NUCLEATED RBC # (test code = 0.00 x10 3/uL 0.0-0.1 N NRBC#) MANUAL DIFF REQUIRED (test code NO = MDIFF) UA RFLX MICR CULT IF [id number] 22:49:00 Test Item Value Reference Range Interpretation Comments UA COLOR (test code = COLU) YELLOW YEL/STRAW UA APPEARANCE (test code = CLEAR CLEAR APPU) UA GLUCOSE DIPSTICK (test code 3+ NEGATIVE A = DGLUU) UA BILIRUBIN DIPSTICK (test NEGATIVE NEGATIVE code = BILU) UA KETONE DIPSTICK (test code NEGATIVE NEGATIVE = KETU) UA SPECIFIC GRAVITY (test code 1.028 1.005-1.030 N = SGU) UA BLOOD DIPSTICK (test code = NEGATIVE NEGATIVE EVER) UA PH DIPSTICK (test code = 5.0 5.0-7.0 N YUMIKO) UA PROTEIN DIPSTICK (test code NEGATIVE NEGATIVE = PROU) UA UROBILINIOGEN DIPSTICK 0.2 mg/dL 0.2-1.0 (test code = URO) UA NITRITE DIPSTICK (test code NEGATIVE NEGATIVE = NASIR) UA LEUKOCYTE ESTERASE DIPSTICK NEGATIVE NEGATIVE (test code = LEUU) UA WBC (test code = WBCU) 0-3 WBC/HPF 0-3 UA RBC (test code = RBCU) 0-3 RBC/HPF 0-3 UA WBC NO REFLEX (test code = 0-3 WBC/HPF 0-3 WBCUCL) UA BACTERIA (test code = BACU) NONE SEEN /HPF NONE SEEN UA SQUAMOUS CELLS (test code = 0-5 /HPF NONE SEEN SQU) UA MUCUS (test code = MUCU) TRACE /LPF NONE SEEN Indication for culture: Dysuria/FrequencySpecimen Description: CLEAN CATCH- CT CHEST W/O [id number] 19:01:00 [facility] 1955 Sex: M Name: SONYA MINAYA [facility] : 1955 Age/S: 65 / M [address] [place] [address] Blvd Unit #: [id number] Loc: [place] [address] Phys: Jacy Hernandez MEDICINE ASSISTANT Acct: [id number] Dis Date: Status: ADM IN PHONE #: [phone] Exam Date: 12/22/20201809 FAX #: [phone] Reason: CABG EXAMS: CPT CODE: [id number] CT CHEST W/O CONTRAST 33617 Clinical Indication: CABG; Comparison: None TECHNIQUE: Sequentialtrans-axial images were obtained thru the chest and upper abdomen [<without>] administration of iodinated contrast. Coronal and sagittal reconstructions were obtained. CT imaging performed at this location utilizes radiation dose optimization techniques which include one or more of the following: -Automated exposure control -Adjustment of the mA and/or kV according to patient size -Use of iterative reconstruction technique CT Radiation Dose DLP 467.7 mGy-cm FINDINGS: LUNG PARENCHYMA AND PLEURA: Mild centrilobular emphysematous changes in both upper lobes. There are no pleural effusions.There is no pneumothorax. AIRWAY: The central airway is normal. MEDIASTINUM: The non- contrast enhanced images of the mediastinum show no definite mediastinal lymphadenopathy. Moderate to severe calcified atheromatous plaques along the left anterior descending coronary artery. No cardiomegaly. The non-contrast enhanced images of the pulmonary arteries and great vessels are unremarkable. OSSEOUS STRUCTURES: There are no definite significant osseous abnormalities seen. VISUALIZED NON-CONTRAST ENHANCED UPPER ABDOMEN: Cholelithiasis. Partially visualized hyperdensity within the bilateral renal pelvises. No hydronephrosis. IMPRESSION: 1. Moderate to severe left anterior descending coronary artery atherosclerotic disease. 2. Mild centrilobular emphysematous changes in both upper lobes. 3. Cholelithiasis. SL:SINAN PAGE 1 Signed Report (CONTINUED) Name: SONYA MINAYA [facility] : 1955 Age/S: 65 / M [address] [place] [address] Unit #: [id number] Loc: [place] [address] Phys: Jacy Hernandez NP Acct: [id number] Dis Date: Status: ADM IN PHONE #: [phone] Exam Date: 12/22/20201809 FAX #: [phone] Reason: CABG EXAMS: CPT CODE: [id number] CT CHEST W/O CONTRAST 02390 (Continued) at 1901 Reported and signed by: Lorie Stein M.D. CC: Avel Banerjee MD; Zara Kumari MD; Jacy Hernandez NP Technologist:Nelson Callejas, RT(R)(CT) CTDI: DLP: Trnscb Date/Time: 12/22/2020 (1900) [email or web address] Orig Print D/T: S: 12/22/2020 (1903) PAGE 2 Signed Report- DUP EXTRACRANIAL [id number] 17:56:00 [facility] 1955 Sex: M Name: SONYA MINAYA : 1955 Age/S: 65 / M [address] [place] [address] Blvd Unit #: [id number] Loc: [place] [address] Phys: MaryCarlosaga MEDICINE ASSISTANT Acct: [id number] Dis Date: Status: ADM IN PHONE #: [phone] Exam Date: 12/22/2020 1746 FAX #: [phone] Reason: CABG EXAMS: CPT CODE: [id number] DUP EXTRACRANIAL BUCK 73401 CAROTID ULTRASOUND. INDICATION: Preop CABG. Coronary artery disease. Left heart catheter. COMPARISON: None. TECHNIQUE: Henriquez-scale, color Doppler and spectral Doppler ofthe carotid arteries was performed. Any reported ICA stenoses indirectly reference the distal internal carotid diameter as the denominator for stenosis measurement, utilizing consensus panel criteria. RIGHT: Mild plaque formation is identified. ICA PSV: 63 cm/sec CCA PSV: 76 cm/sec ICA/CCA ratio: 0.8Vertebral flow is antegrade. LEFT: Mild plaque formation is identified. ICA PSV: 69 cm/sec CCA PSV:90 cm/sec ICA/CCA ratio: 0.8 Vertebral flow is antegrade. IMPRESSION: 1. RIGHT: Carotid artery stenosis estimated at less than 50% 2. LEFT: Carotid artery stenosis estimated at less than 50% End Impression Consensus panel Doppler US criteria for diagnosis of ICA stenosis. Stenosis (%) ICA PSV (cm/sec) ICA/CCA ratio <50 <125 <2.0 50-69 125-230 2.0-4.0 >70 but less than >230 >4.0 near occlusion Near occlusion High, low, or undetectable Variable SL: SG-H PAGE 1 Signed Report (CONTINUED) Name: [facility] [place] : 1955 Age/S: 65 / M [address] [place] [address] Unit #: [id number] Loc: [place] [address] Phys: Jacy Hernandez NP Acct: [id number] Dis Date: Status: ADM IN PHONE #: [phone] Exam Date: 12/22/2020 174 FAX #: [phone] Reason: CABG EXAMS: CPT CODE: [id number] DUP EXTRACRANIAL BUCK 88636 (Continued) t 1755 Reported and signed by: Kenyon Chapman M.D. 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 [facility] - DUP VEIN [id number] 17:43:00 [facility] : 1955 Sex: M Name: SONYA MINAYA [facility] [place] : 1955 Age/S: 65 / M [address] [place] [address] Unit #: [id number] Loc: [place] [address] Phys: Jacy Hernandez MEDICINE ASSISTANT Acct: [id number] Dis Date: Status: ADM IN PHONE #: [phone] Exam Date: 12/22/20201741 FAX #: [phone] Reason: VEIN MAPPING EXAMS: CPTCODE: [id number] DUP VEIN BUCK 84308 BILATERAL LOWER EXTREMITY VEIN MAPPING: HISTORY: Preoperative evaluation for vein harvesting for upcoming CABG. Vein mapping. COMPARISON: None. FINDINGS: Real-time evaluation was used to measure the great saphenous vein in each leg. Bilateral great saphenous veins compress. RIGHT great saphenous measurements: Upper thigh: 5.3 mm. Mid thigh: 4.7 mm. Lower thigh: 5.5mm. Upper calf: 5.1 mm. Mid calf: 2.2 mm. Lower calf: 3.6 mm. LEFT great saphenous measurements: Upper thigh: 3.8 mm. Mid thigh: 2.6 mm. Lower thigh: 4.5 mm. Upper calf: 5 mm. Mid calf: 3.8 mm. Lower calf: 4.3 mm. IMPRESSION: 1. The greater saphenous veins are patent bilaterally from the ankles to the saphenofemoral junctions. 2. Vein mapping as described above. SL: SGChelsyH at 1743 Reported and signed by: Kenyon Chapman M.D. PAGE 1 Signed Report (CONTINUED) Name: SONYA MINAYA [facility] : 1955 Age/S: 65 / M [address] [place] [address] Unit #: [id number] Loc: [place] [address] Phys: Jacy Hernandez MEDICINE ASSISTANT Acct: [id number] Dis Date: Status: ADM IN PHONE #: [phone] Exam Date: 12/22/20201741 FAX #: [phone] Reason: VEIN MAPPING EXAMS: CPT CODE: [id number] DUP VEIN BUCK 23305 (Continued) CC: Avel Banerjee MD; Zara Kumari MD; Jacy Hernandez NP Technologist: Tarsha Snow RDMS(AB) Trnscb Date/Time: 12/22/2020 (490) BrendanSG9 Orig Print D/T: S: 12/22/2020 (4705) Probe: PAGE 2 Signed [id number] 10:19:00 Test Item Value Reference Range Interpretation Comments GLUBED (test code = 134 MG/DL 70-110 H 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 Brice t performance dep ends on theamount of vi suki (antigen) in th e sample.This brice t has not been FDA cleare d or approved; the t est hasbeen authori zed by FDA under an Em ergency Use Authorizati on(EUA) for use by labo ratories certified under the CLIA thatmeet the requirements to perform moderate, high or waivedcomplexit y tests. COMMENTS: If not done this admission- XR CHEST 2 [id number] 12:40:00 [facility] : 1955 Sex: M FAX: Avel Latham MD [phone] [place]: St: PRE FAX: Zara Ruiz [phone] Name: SONYA MINAYA [facility] [place] : 1955 Age/S: 65/M [address] [place] [address] Bl Unit #: [id number] Loc: [place] [address] Phys: Zara Kumari MD Acct: [id number] Dis Date: Status[place] [facility] [place] #: [phone] Exam Date: 12/21/2020 1228 FAX #: [phone] Reason: [facility] EXAMS: CPT CODE: [id number] XR CHEST 2V 64852 EXAM: XR CHEST 2 VIEWS DATE: 12/21/2020 11:30 AM : 1955; Age: 65 years y/o Male INDICATION: [facility] R007.9 COMPARISON: None. TECHNIQUE: PA and lateral chest radiographs. FINDINGS: Lines, tubes and hardware: None. Lungs and pleura: The lungs are clear. No pleural effusion. Heart and mediastinum: The heart size is normal for technique. The mediastinal contours are normal. Pulmonary vascularity is normal. IMPRESSION: No acute cardiopulmonary process. SL: [id number] at 1240 Reported and signed by: Kali Crews D.O. CC: Avel Banerjee MD; Zara Kumari MD Technologist: RT Johann(Marleen)(M) Trnscrd Date/Time/By: 12/21/2020 (3932) : By: [email or web address] Orig Print D/T: S: 12/21/2020 (5245) PAGE 1 Signed ReportPROTHROMBIN [id number] 12:23:00 Test Item Value Reference Range Interpretation Comments PROTHROMBIN TIME 16.4 SECONDS 9.3-12.9 H PATIENT (test code = PTP) INTERNATIONAL NORMAL 1.5 0.8-1.2 H TARGE T INR BY RATIO (test code = INDICATIO N Indication INR) INR1. Prophylax is of venous thrombos is 2.0 - 3.0 (orthoped ic surgery), Proph ylaxis of venous throm bosis (other than hig h-risk surgery), Treat ment of Deep Vein Thrombosis/Pulm onary Embolism, Preve ntion of systemic emb olism - Tissue heart va lves, Acute Myocardia l Infarction (to prevent systemic emboli sm), Valvular heart disease, Atrial Fibrillation, Bileaflet mecha nical valve in aortic position.2. Mec hanical prosthetic valv es (high risk), 2. 5 - 3.5 Presence of Lup us Anticoagulant o r Antiphospholipi d Antibodies, Pre vention of systemic emb olism - Acute Myocardia l Infarction (to prevent recurrent infar ct). BASIC METABOLIC [id number] 12:21:00 Test Item Value Reference Range Interpretation Comments SODIUM (test code = NA) 139 mEq/L 134-147 N POTASSIUM (test code = 3.6 mEq/L 3.4-5.0 N K) CHLORIDE (test code = 108 mEq/L 100-108 N CL) CARBON DIOXIDE (test 21 mEq/l 21-33 N code = CO2) ANION GAP (test code = 13 0-20 N GAP) GLUCOSE (test code = 172 mg/dL 70-110 H GLU) BLOOD UREA NITROGEN 8 mg/dL 7-18 N (test code = BUN) GLOMERULAR FILTRATION 66.8 80-90 L Units of measure = RATE (test code = GFR) ml/mi n/1.73 m2 CREATININE (test code = 1.1 mg/dL 0.6-1.3 N CREAT) CALCIUM (test code = 9.1 mg/dL 8.0-10.5 N CA) CBC W/AUTO [id number] 12:02:00 Test Item Value Reference Range Interpretation Comments WHITE BLOOD CELL (test code = 6.9 x10 3/uL 4.5-11.0 N WBC) RED BLOOD CELL (test code = 4.89 x10 6/uL 4.00-5.60 N RBC) HEMOGLOBIN (test code = HGB) 14.1 g/dL 12.5-16.9 N HEMATOCRIT (test code = HCT) 45.2 % 37.5-50.7 N MEAN CELL VOLUME (test code = 92.4 fL 81.0-99.0 N MCV) MEAN CELL HGB (test code = MCH) 28.8 pg 27.0-33.0 N MEAN CELL HGB CONCETRATION 31.2 g/dL 33.0-37.0 L (test code = MCHC) RED CELL DISTRIBUTION WIDTH CV 15.6 % 11.5-14.5 H (test code = RDW) RED CELL DISTRIBUTION WIDTH SD 53.1 fL 37.0-54.0 N (test code = RDW-SD) PLATELET COUNT (test code = 257 x10 3/uL 150-400 N PLT) MEAN PLATELET VOLUME (test code 10.4 fL 7.0-9.0 H = MPV) NEUTROPHIL % (test code = NT%) 54.7 % 56.0-77.0 L IMMATURE GRANULOCYTE % (test 0.4 % 0.0-2.0 N code = IG%) LYMPHOCYTE % (test code = LY%) 34.4 % 14.0-32.0 H MONOCYTE % (test code = MO%) 7.8 % 4.8-9.0 N EOSINOPHIL % (test code = EO%) 2.0 % 0.3-3.7 N BASOPHIL % (test code = BA%) 0.7 % 0.0-2.0 N NUCLEATED RBC % (test code = 0.0 % 0-0 N NRBC%) NEUTROPHIL # (test code = NT#) 3.78 x10 3/uL 2.0-7.6 N IMMATURE GRANULOCYTE # (test 0.03 x10 3/uL 0.00-0.03 N code = IG#) LYMPHOCYTE # (test code = LY#) 2.38 x10 3/uL 1.0-3.8 N MONOCYTE # (test code = MO#) 0.54 x10 3/uL 0.1-0.8 N EOSINOPHIL # (test code = EO#) 0.14 x10 3/uL 0.0-0.2 N BASOPHIL # (test code = BA#) 0.05 x10 3/uL 0.0-0.2 N NUCLEATED RBC # (test code = 0.00 x10 3/uL 0.0-0.1 N NRBC#) MANUAL DIFF REQUIRED (test code NO = MDIFF) CBC W/AUTO [id number] 12:01:00 Test Item Value Reference Range Interpretation Comments WHITE BLOOD CELL (test code = x10 3/uL 4.5-11.0 WBC) RED BLOOD CELL (test code = RBC) x10 6/uL 4.00-5.60 HEMOGLOBIN (test code = HGB) 14.1 g/dL 12.5-16.9 N HEMATOCRIT (test code = HCT) 45.2 % 37.5-50.7 N MEAN CELL VOLUME (test code = fL 81.0-99.0 MCV) MEAN CELL HGB (test code = MCH) pg 27.0-33.0 MEAN CELL HGB CONCETRATION (test g/dL 33.0-37.0 code = MCHC) RED CELL DISTRIBUTION WIDTH CV % 11.5-14.5 (test code = RDW) PLATELET COUNT (test code = PLT) 257 x10 3/uL 150-400 N NEUTROPHIL % (test code = NT%) % 56.0-77.0 LYMPHOCYTE % (test code = LY%) % 14.0-32.0 NEUTROPHIL # (test code = NT#) x10 3/uL 2.0-7.6 LYMPHOCYTE # (test code = LY#) x10 3/uL 1.0-3.8 MANUAL DIFF REQUIRED (test code = MDIFF) Notes Date/Time Note Provider Source 2022-07-31 13:49:00-00:00 [facility] Discharge Summary REPORT#:[id number] REPORT STATUS: Signed DATE:07/31/22 TIME: 1348 PATIENT: SONYA MINAYA UNIT #: [id number] ROOM/BED: : 53 AGE: 66 SEX: M ATTEND: Jame Anthony MD ADM AUTHOR: Brenden Anthony MD * ALL edits or amendments must be made on the el [employer]/computer document * General Information Discharge date: 07/31/22 Admission diagnosis: BPH with LUTS Discharge diagnosis: BPH with luts Hospital course: Patient presented for diagnostic cystoscopy. Madison rodas tolerated it well, following the procedure patient recovered in the recovery room. He is tolerating p.o. intake, voiding without difficul ty, and his pain was well controlled. And medically stable for discharge. Med Rec PCP PCP: PCP: Rose Davies Med Rec Discharge meds: Continue taking these medications: LOSARTAN/HCTZ (HYZAAR 100/25 MG) 100 MG-25 MG TA B 1 TABLET ORAL BEDTIME. METOPROLOL SUCC XL (TOPROL XL) 100 MG TAB.SA 100 MILLIGRAM ORAL BEDTIME. PANTOPRAZOLE DR (PROTONIX) 40 MG TAB.DR 40 MILLIGRAM ORAL BEDTIME. LORATADINE (CLARITIN) 10 MG TAB 10 MILLIGRAM ORAL DAILY NEEDED. as needed fo r ALLERGIES ATORVASTATIN (LIPITOR) 40 MG TAB 40 MILLIGRAM ORAL BEDTIME. PIOGLITAZONE (ACTOS) 30 MG TAB 30 MILLIGRAM ORAL DAILY PM AMIODARONE (PACERONE) 100 MG TAB 100 MILLIGRAM ORAL BEDTIME. DULAGLUTIDE (TRULICITY) 1.5 MG/0.5 ML PEN.INJCTR 1.5 MILLIGRAM SUBCUTANEOUS Q7D- FRI EMPAGLIFLOZIN (JARDIANCE) 25 MG TAB 25 MILLIGRAM ORAL DAILY. INSULIN ASPART (NovoLOG FLEXPEN (15mL)) 100 UNIT /ML (3 ML) PEN.INJCTR UNITS SUBCUTANEOUS THREE TIMES DAILY NEEDED. as needed for DM Instructions: PER SLIDING SCALE INSULIN GLARGINE (BASAGLAR KWIKPEN U-100 (15mL)) 100 UNIT/ML (3 ML) PEN.INJCTR 35 UNITS SUBCUTANEOUS DAILY PM PARoxetine CR (PAXIL CR) 37.5 MG TAB.SR.24H 37.5 MILLIGRAM ORAL DAILY. buPROPion HCL XL (WELLBUTRIN XL) 150 MG TAB.SR.2 4H 150 MILLIGRAM ORAL BEDTIME. [TURMERIC CURCUMIN] 1,950 MILLIGRAM ORAL BEDTIME. Instructions: TURMERIC CURCUMIN W/ BIOPERINE CHOLECALCIFEROL (VITAMIN D3) (VITAMIN D3) 25 MCG (1,000 UNIT) TAB 1,000 UNITS ORAL DAILY. OMEGA-3 FATTY ACIDS (FISH OIL) 1,000 MG CAP 1,000 MILLIGRAM ORAL DAILY. Start taking the following new medications: ACETAMINOPHEN (TYLENOL) 325 MG TAB 650 MILLIGRAM ORAL EVERY 4 HOURS NEEDED. as needed for pain Qty = 60 Refills = 1 Objective VS/I O Last Documented: Result Date Time Pulse Ox 99 07/31 1125 B/P 114/58 07/31 1125 O2 Delivery Room air 07/31 1125 Temp 97.8 07/31 1125 Pulse 59 07/31 1125 Resp 18 07/31 1125 PATIENT WEIGHT: Weight (lb): 286 Weight (oz): 9.62 Weight (kg): 130.000 Discharge Instructions PCP PCP: PCP: Rose Davies )( Discharge to: Home/Self Care Discharge Instructions Additional Discharge Routines: None )( Diet: Resume Home Diet/Feeds Free Text DC Notes Free Text DC Notes: - OK to see blood in the urine, stay well hydrat ed - Take all medications as prescribed. - Keep all follow-up appointments. - Use your prescribed pain medications as direct ed. - Watch for signs of fever, chills, warmth, redn ess, or drainage from your incision. Seek medical atten tion for: fever >100.4 F, increasing warmth, redness , swelling. - My office to schedule follow up in 3-5 days to discuss next step. Electronically Signed by Brenden Anthony MD on 04/14 at 1354 RPT #:[id number] END OF REPORT 2022-07-31 13:42:00-00:00 [facility] ([facility]) DT Operative Note REPORT#:[id number] REPORT STATUS: Signed DATE:07/31/22 TIME: 1342 PATIENT: SONYA MINAYA UNIT #: [id number] ROOM/BED: : 53 AGE: 66 SEX: M ATTEND: Rai Anthony MD ADM AUTHOR: Brenden Anthony MD * ALL edits or amendments must be made on the el [employer]/computer document * Operative Report Operative Note Note: FULL OPERATIVE NOTE Date of Surgery: 07/31/22 Surgeon: Brenden Anthony MD Anesthesia Type: General LMA Pre-operative diagnosis: BPH with LUTS Post-operative diagnosis: BPH with LUTS Procedures: Cystocopy (49205) Findings: Patent pendulous urethra, some evidenc e of prior scar tissue within the pendulous and distal bul bar urethra however the urethra was patent, bilobar obstructive BPH, trigonitis, moderate bladder trabeculations. clear efflux from bilateral UOs. Indication: Sonya Minaya is a 66-year-old male with prior procedure of his urethra as a child who has had progressively wor sening LUTS and was unable to tolerate in clinic cystoscop y. He presents today for cystoscopy under sedation. Complications: none Estimated blood loss: 0 mL Specimens: none Drains: none Informed consent was obtained. The patient was b rought to the OR. Underwent general anesthesia. Placed i n the lithotomy position. Prepped and draped in the usual sterile fashion. They received Cipro 500g for pre operative prophylaxis. A time out was performed. A rigid cystoscope was p laced through the urethra to perform cystoscopy with findings of garza nt pendulous urethra, some evidence of prior scar tissue within the pendulous and dista l bulbar urethra however the urethra was patent, bilobar obstructive BPH, tri gonitis, moderate bladder trabeculations. Clear efflux from bilateral UOs. The bladder was emptied and the scope was removed. The patient tolerated the pro cedure and transfered to the recovery room in good condition. Brenden Anthony MD Electronically Signed by Brenden Anthony MD on 04/14 at 1349 RPT #:[id number] END OF REPORT 2022-07-27 08:42:00-00:00 [id number] [place] [address] PATIENT NAME: SONYA MINAYA ADMIT DATE: ACCOUNT NO: [id number] ROOM NO: AGE: 66 REPORT TYPE: eELECTROCARDIOGRAM REPORT SEX: M ADMITTING PHYSICIAN: ATTENDING PHYSICIAN:Brenden Anthony MD Order: [id number] Test Reason : PAT Test Date/Time Stamp: SunJul 27 2022 08:42:05 Blood Pressure : / mmHG Vent. Rate : 059 BPM Atrial Rate : 059 BPM P-R Int : 290 ms QRS Dur : 096 ms QT Int : 442 ms P-R-T Axes : 088 -19 042 degree s QTc Int : 437 ms Sinus bradycardia with 1st degree AV block Low voltage QRS Left axis deviation Incomplete right bundle branch block Possible Inferior infarct , age undetermined Abnormal ECG PRE_OP Confirmed by ALBINA BARBOSA MD ([id number]) on 07/27/20 3:21:28 PM Referred By: Brenden Anthony Confirmed by:ALBINA BARBOSA MD at 1521 PATIENT NAME: SONYA MINAYA [id number] 2022-07-17 08:29:00-00:00 [facility] ([facility]) Discharge Summary REPORT#:[id number] REPORT STATUS: Signed DATE:07/17/22 TIME: 828 PATIENT: SONYA MINAYA UNIT #: [id number] ROOM/BED: [place] [id number] : 53 AGE: 66 SEX: M ATTEND: Jae Jaffe MD ADM AUTHOR: Jae Jaffe MD * ALL edits or amendments must be made on the [employer] document * PCP PCP PCP: PCP: Rose Davies Discharge to: home General Information Date of admission: Observation Start Date: Date of admission: 06/21/22 Discharge date: 06/26/22 Admission diagnosis: 1. Dysphagia secondary to peritonsillar abscess 2. Diabetes mellitus type 2 3. Hypertension 4. Dyslipidemia 5. 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 Patient reports low-grade fever. Patient denies shortness of breath, headache, nausea, vomiting, chest pain , or other associated symptoms.Admission vital signs blood pressure 153 over 65, pulse 85, re spiration 18, temperature 36.4, O2 sat 96% on room air. Abnormal labs WBC 12.2, potassium 3.1, glucose [address] MAXIFAC W/CONTRAST reveals: 1. Asymmetric enlargement of the right palatine tonsil, with a right peritonsillar fluid collection measuring 1 .5 x 0.9 x 1.0 cm. Moderate edema of the right lateral pharyngeal w all and true vocal folds are also noted. June 22, 2022: Patient reports he is feeling slightly better He is able to swallow He tolerated liquid diet Diet was advanced to soft diet He was seen and evaluated by ENT No surgical intervention at this time June 23, 2022: Continue to have some dysphagia with significant improvement overall Able to eat soft foods Continues IV antibiotics The patient was hemodynamically stable a nd was discharged home, follow-up with PCP. Discharge medications as per reconciliatio n list. Med Rec PCP PCP: PCP: Rose Davies Med Rec Discharge meds: Continue taking these medications: LOSARTAN/HCTZ (HYZAAR 100/25 MG) 100 MG-25 MG TA B 1 TABLET ORAL DAILY. METOPROLOL SUCC XL (TOPROL XL) 100 MG TAB.SA 100 MILLIGRAM ORAL DAILY. RIVAROXABAN (XARELTO) 20 MG TAB CLOPIDOGREL (PLAVIX) 75 MG TAB 75 MILLIGRAM ORAL DAILY. PANTOPRAZOLE DR (PROTONIX) 40 MG TAB.DR 40 MILLIGRAM ORAL DAILY. LORATADINE (CLARITIN) 10 MG TAB 10 MILLIGRAM ORAL DAILY NEEDED. as needed fo r ALLERGIES Instructions: FOR ALLERGIES ATORVASTATIN (LIPITOR) 40 MG TAB 40 MILLIGRAM ORAL DAILY. PIOGLITAZONE (ACTOS) 30 MG TAB 30 MILLIGRAM ORAL DAILY. AMIODARONE (PACERONE) 100 MG TAB 100 MILLIGRAM ORAL DAILY. DULAGLUTIDE (TRULICITY) 1.5 MG/0.5 ML PEN.INJCTR 1.5 MILLIGRAM SUBCUTANEOUS EVERY 7 DAYS. EMPAGLIFLOZIN (JARDIANCE) 25 MG TAB 25 MILLIGRAM ORAL DAILY. INSULIN ASPART (NovoLOG FLEXPEN (15mL)) 100 UNIT /ML (3 ML) PEN.INJCTR 0 UNITS SUBCUTANEOUS THREE TIMES DAILY NEEDE D. as needed for HYPERGLYCEMIA PER PROTOCOL INSULIN GLARGINE (BASAGLAR KWIKPEN U-100 (15mL)) 100 UNIT/ML (3 ML) PEN.INJCTR 0 UNITS SUBCUTANEOUS DAILY. PARoxetine CR (PAXIL CR) 37.5 MG TAB.SR.24H 37.5 MILLIGRAM ORAL DAILY. buPROPion HCL XL (WELLBUTRIN XL) 150 MG TAB.SR.2 4H 150 MILLIGRAM ORAL DAILY. Start taking the following new medications: CLINDAMYCIN HCL (CLEOCIN) 300 MG CAP 300 MILLIGRAM ORAL EVERY 6 HOURS. Days = 7 Qty = 28 No Refills Objective VS/I O Last Documented: Result Date Time Pulse Ox 96 06/26 442 B/P 136/86 06/26 442 B/P Mean 102.9 06/26 442 O2 Delivery Room air 06/26 442 Temp 37.0 06/26 442 Pulse 68 06/26 442 Resp 14 06/26 442 PATIENT WEIGHT: Weight (lb): Weight (oz): Weight (kg): 131.818 Physical Exam Head/Eyes: atraumatic, EOMI, normal conjunctiva/sclera, normal eyelids/periorb, normocephalic, PERRLA ENT: normal dentition, normal ear left, normal e ar right, normal nose, normal pharynx, normal sinus Neck: supple/no meningismus, no JVD Cardiovascular: normal capillary refill, regular rate rhythm Respiratory: clear to auscultation, no distress Abdomen: non-tender, soft, no distention, no gua rding, no hernia, no mass/ organomegaly, no rebound Rectal: not indicated Extremities: Extremities: moves all, no edema 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, 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 Skin: dry, intact Psychiatry: normal affect, n ormal judgement/insight, normal mood, not homicidal, not suicidal, no hallucinations Discharge Instructions PCP )( Discharge to: Home/Self Care Discharge Instructions Additional Discharge Routines: PCP Follow-Up, Co nsultant Follow-Up )( Diet: Diabetic )( Return to work/school date: 06/27/22 Follow-up Appointments PCP follow up: PCP: Rose Davies PCP follow up timeframe: In 1-2 weeks Special instructions: PLEASE CALL FOR THE REPORT Consulting provider 1: Provider 1: Ian Coronel MD Specialty: Cardiology Special instructions: PLEASE CALL FOR APPOINTMENT Consulting provider 2: Provider 2: Elijah Crawford MD Specialty: Otolaryngology Electronically Signed by Jae Jaffe MD o n 07/17/22 at 0832 [facility] #:[id number] END OF REPORT 2022-06-26 08:23:00-00:00 [id number] [place] [address] PATIENT NAME: SONYA MINAYA ADMIT DATE: 2 ACCOUNT NO: [id number] ROOM NO: [facility] AGE: 66 REPORT TYPE: PROGRESS NOTE SEX: M ADMITTING PHYSICIAN:Jae Jaffe MD ATTENDING PHYSICIAN:Jae Jaffe MD DATE: 06/25/2022 SUBJECTIVE: The patient examined, chart reviewed . Events of last 24 hours noted. The patient clinically is doing about the same. He remains awake and alert. He states that his throat pain has almost completely resolved. He is eating better. Denies any new complaints. Remain s afebrile. No nausea, vomiting reported. No diarrhea reported. CURRENT MEDICATIONS: Include amiodarone, atorvas tatin, chlorhexidine oral care, clopidogrel, dexamethasone IV, glargine in sulin, losartan, metoprolol, pantoprazole, paroxetine, rivaroxaban, bupropion , Unasyn IV, docusate with senna p.r.n., glucagon p.r.n., hydrocodone babita trate p.r.n., loratadine p.r.n., hydralazine p.r.n., morphine sulfate p.r .n., ondansetron p.r.n. PHYSICAL EXAMINATION: GENERAL: The patient is resting in chair, fully conscious and alert, does not appear to be in any acute distress at the presen t time, does not appear to be toxic, and does not appear to be in any acute di stress. VITAL SIGNS: Temperature maximum since admission is 97.6 degrees Fahrenheit; however, the patient states that he had feverish feeling last night, blood pressure is 136/85, respirations 18 per minute, and pulse is 87 per minute. The patient's weight is around 131 kg. HEENT: Head is atraumatic and normocephalic. Pup ils are equal and reacting to light bilaterally. Extraocular movements are int act. Oropharyngeal examination shows erythema involving the tonsill ar area bilaterally. The erythema of the soft palate on the right side borden s significantly improved and the swelling is going down. Tenderness on the ri ght angle of jaw is still there, but significantly decreased. NECK: The patient's neck is otherwise supple. JV D is absent. No carotid bruit, thyromegaly, or cervical lymphadenopathy. The patient has a tender swelling on both upper neck, more so on the righ t side than left. LUNGS: There is fair air entry bilaterally. HEART: S1, S2 audible. No murmur appreciated. ABDOMEN: Soft and bulging nontender , no hepatosplenomegaly. Bowel sounds are normoactive. EXTREMITIES: Calves are soft. No calf tenderness . No significant edema. the swelling and erythema of the soft palate where h e had the abscess is significantly decreased. The patient has no ten derness on the angle of right jaw. LABORATORY DATA: WBC stable around 7000 with hem oglobin of 12, hematocrit of 37, platelet count is 262. Serum sodium is 137, potassium 4.1, chloride 108, bicarbonate 20, glucose 200, BUN 11, creatinine 0.9. Estimated GFR is 84, calcium is 8.3. PATIENT NAME: SONYA MINAYA 4053 ASSESSMENT AND PLAN: The patient with multiple c omorbidities, was initially admitted through the Emergen cy Room with worsening right-sided throat pain with odynophagia and significant difficulty i n swallowing. The patient was found to have a right peritonsillar a bscess. He was started on IV antibiotics along with steroids systemically. Clinically, he has shown improvement in his condition, was evaluated by ENT and no surgical interventio n was suggested. The patient continues to make progress and now is able to ea t and drink without any problems. His pain and swelling of the r ight side of his angle of the jaw area and throat has significantly decreased. Clinical ly, he is making progress. We will for now continue him on the present antibiotic regimen and if he continues to show improvement in condition, we will consid er switching him to oral Augmentin on discharge in the morning. Discussed with the patient's nursing staff. Dictated By: Mamadou Piedra MD Date Dictated: 06/26/2022 08:23:14 Date Transcribed: 06/26/2022 09:41:16 BORDEN/SULTANA Receipt ID: [id number] Authenticated and Edited by Mamadou Piedra MD On 07/09/22 3:29:12 AM Electronically Signed by Mamadou Piedra MD on at 0331 PATIENT NAME: SONYA MINAYA 4053 2022-06-25 21:16:00-00:00 [facility] Internal Medicine Prog. Note REPORT#:[id number] REPORT STATUS: Signed DATE:06/25/22 TIME: 2115 PATIENT: SONYA MINAYA UNIT #: [id number] ROOM/BED: [place] [address] : 53 AGE: 66 SEX: M ATTEND: Jae Jaffe MD ADM AUTHOR: Junie Yu NP * ALL edits or amendments must be made on the [employer]/computer document * Subjective Chief complaint: Peritonsillar abscess Review of Systems Constitutional: Denies: chills, fever. ENT: Reports: sore throat, throat pain. Denies: earac he, nasal congestion. Respiratory: Denies: hemoptysis, parox no cturnal dyspnea, pleurisy, pleuritic pain, pneumonia , SOB, wheezing. Cardiovascular: Denies: chest pain, palpitations. GI: Denies: abdominal pain, nausea, vomiting. : Denies: flank pain, frequency, hematuria. Musculoskeletal: Denies: extremity pain, extr emity swelling, joint pain, lumbar pain, neck pain. Neuro: Denies: change in LOC, confusion, dizziness, foc al weakness, gait problem, headache, lightheaded, numbness, seizure, slurre d speech, spinning sensation, syncope, unable to speak, vision change. Psych: Denies: agitation, anxiety, auditory hallucinati on, change in mental status, confusion, delusional, depre ssion, homicidal ideation, hostile, insomnia, stress , suicidal ideation, visual hallucination. Objective General VS/I O: Laboratory Tests 06/25/22 0807: [Embedded Image Not Available] 06/25/22 0412: [Embedded Image Not Available] 06/24/22 050: [Embedded Image Not Available] Laboratory Tests 06/25 06/25 06/25 06/25 06/24 1609 1156 0730 0412 204 Chemistry Sodium (134 - 147 mEq/L) 137 Potassium (3.4 - 5.0 mEq/L) 4.1 Chloride (100 - 108 mEq/L) 108 Carbon Dioxide (21 - 33 mEq/l) 20 L Anion Gap (0 - 20) 13 BUN (7 - 18 mg/dL) 11 Creatinine (0.6 - 1.3 mg/dL) 0.9 Glomerular Filtr Rate (80 - 90) 83.9 Glucose (70 - 110 mg/dL) 200 H POC Glucose (70 - 110 MG/DL) 271 H 246 H 199 H 218 H Calcium (8.0 - 10.5 mg/dL) 8.3 06/24 06/24 06/24 06/24 06/23 1645 1147 0724 0500 2010 Chemistry Sodium (134 - 147 mEq/L) 138 Potassium (3.4 - 5.0 mEq/L) 5.0 Chloride (100 - 108 mEq/L) 113 H Carbon Dioxide (21 - 33 mEq/l) 15 L Anion Gap (0 - 20) 15 BUN (7 - 18 mg/dL) 7 Creatinine (0.6 - 1.3 mg/dL) 0.9 Glomerular Filtr Rate (80 - 90) 83.9 Glucose (70 - 110 mg/dL) 162 H POC Glucose (70 - 110 MG/DL) 280 H 201 H 189 H 236 H Calcium (8.0 - 10.5 mg/dL) 8.9 06/23 06/23 06/23 06/23 1716 1150 0802 0410 Chemistry Sodium (134 - 147 mEq/L) 141 Potassium (3.4 - 5.0 mEq/L) 3.7 Chloride (100 - 108 mEq/L) 108 Carbon Dioxide (21 - 33 mEq/l) 23 Anion Gap (0 - 20) 13 BUN (7 - 18 mg/dL) 12 Creatinine (0.6 - 1.3 mg/dL) 0.9 Glomerular Filtr Rate (80 - 90) 83.9 Glucose (70 - 110 mg/dL) 174 H POC Glucose (70 - 110 MG/DL) 188 H 253 H 177 H Calcium (8.0 - 10.5 mg/dL) 8.5 Phosphorus (2.5 - 4.9 MG/DL) 2.4 L Magnesium (1.80 - 2.40 mg/dL) 1.98 Laboratory Tests 06/25 06/24 06/23 0807 0500 0410 Hematology WBC (4.5 - 11.0 x10 3/uL) 7.4 9.2 10.6 RBC (4.00 - 5.60 x10 6/uL) 4.35 4.55 4.08 Hgb (12.5 - 16.9 g/dL) 12.4 L 12.9 11.3 L Hct (37.5 - 50.7 %) 37.2 L 41.0 35.9 L MCV (81.0 - 99.0 fL) 85.5 90.1 88.0 MCH (27.0 - 33.0 pg) 28.5 28.4 27.7 MCHC (33.0 - 37.0 g/dL) 33.3 31.5 L 31.5 L RDW (11.5 - 14.5 %) 15.0 H 15.8 H 15.7 H Plt Count (150 - 400 x10 3/uL) 262 258 230 MPV (7.0 - 9.0 fL) 10.4 H 10.9 H 10.6 H Neut % (Auto) (56.0 - 77.0 %) 74.6 84.0 H 86.4 H Lymph % (Auto) (14.0 - 32.0 %) 15.5 11.2 L 8.4 L [place] % (Auto) (4.8 - 9.0 %) 7.7 4.1 L 4.5 L Eos % (Auto) (0.3 - 3.7 %) 0.1 L 0.1 L 0.1 L Baso % (Auto) (0.0 - 2.0 %) 0.1 0.1 0.1 Neut # (Auto) (2.0 - 7.6 x10 3/uL) 5.54 7.69 H 9.15 H Lymph # (Auto) (1.0 - 3.8 x10 3/uL) 1.15 1.03 0 .89 L [place] # (Auto) (0.1 - 0.8 x10 3/uL) 0.57 0.38 0. 48 Eos # (Auto) (0.0 - 0.2 x10 3/uL) 0.01 0.01 0.0 1 Baso # (Auto) (0.0 - 0.2 x10 3/uL) 0.01 0.01 0 .01 Abs Immat Gran (auto) (0.00 - 0.03 x10 3/uL) 0. 15 H 0.05 H 0.05 H Add Manual Diff NO NO NO Immature Gran % (0.0 - 2.0 %) 2.0 0.5 0.5 Nucleated RBC % (0 - 0 %) 0.0 0.0 0.0 Nucleated RBCs # (Man) (0.0 - 0.1 x10 3/uL) 0. 00 0.00 0.00 Vital Signs: Date Time Temp Pulse Resp B/P B/P Pulse O2 O2 F low FiO2 Mean Ox Delivery Rate 06/25 1929 37.2 55 14 157/68 97.3 96 Room air 06/25 1610 36.9 56 15 135/66 88.9 93 Room air 06/25 1159 36.8 52 16 133/59 83.2 96 Room air 06/25 0734 36.6 66 16 149/80 103.0 96 Room air 06/25 0337 36.5 51 12 126/76 92.3 97 Room air 06/24 2342 36.6 61 12 146/83 104.1 98 Room air Current Medications Sig/Jero Start time Last Medication Dose Route Stop Time Status Admin Dexamethasone Sodium 6 MG Q12HR 06/25 900 AC 1 0 Phosphate IV 07/25 0859 0841 Insulin Human Lispro 0 AC HS 06/24 730 AC SUBQ 07/24 0729 1801 Rivaroxaban 20 MG DAILY 1700 06/23 1830 AC PO 07/24 1659 1801 Amiodarone HCl 100 MG DAILY 06/23 0900 AC 06/25 PO 07/23 0859 0844 Bupropion HCl 150 MG DAILY 06/23 900 AC 06/25 PO 07/23 0859 0842 Clopidogrel Bisulfate 75 MG DAILY 06/23 900 AC 06/25 PO 07/23 0859 0843 Losartan Potassium 50 MG DAILY 06/23 900 AC PO 07/23 0859 0844 Metoprolol Succinate 100 MG DAILY 06/23 900 AC 06/25 PO 07/23 0859 0843 Pantoprazole 40 MG DAILY 06/23 900 AC 06/25 PO 07/23 0859 0851 Paroxetine HCl 40 MG DAILY 06/23 900 AC 06/25 PO 07/23 0859 0848 Atorvastatin Calcium 40 MG 2100 06/22 2100 AC 1 PO 07/22 Dextrose/Water 125 ML ASDIR PRN 06/22 1315 CKD IV 07/22 1314 Dextrose/Water 250 ML ASDIR PRN 06/22 1315 CKD IV 07/22 1314 Glucagon 1 MG ASDIR PRN 06/22 1315 AC IM 07/22 1314 Insulin Glargine 15 UNIT BID 06/22 1315 AC SUBQ 07/22 1314 0848 Loratadine 10 MG DAILY PRN PRN 06/22 1200 AC PO 07/22 1159 Acetaminophen 650 MG Q4H PRN PRN 06/22 0545 AC PO 07/22 0544 Docusate Sodium 100 MG BID PRN PRN 06/22 0545 A C PO 07/22 0544 Hydralazine HCl 10 MG Q6H PRN PRN 06/22 0545 AC IV 07/22 0544 Hydrocodone Bitart/ 1 TAB Q4H PRN PRN 06/22 054 5 AC Acetaminophen PO 06/27 0544 Ondansetron HCl 4 MG Q4H PRN PRN 06/22 0545 AC IV 07/22 0544 Ampicillin Sodium/ 3 GM Q6H 06/22 0330 AC 10 2 Sulbactam Sodium IV 07/02 0329 1801 Sodium Chloride 100 ML Chlorhexidine 15 ML BID 06/21 2130 AC 06/25 Gluconate PO 07/21 2129 0841 Morphine Sulfate 4 MG Q4H PRN PRN 06/21 2130 AC IV 06/26 2129 Dexamethasone Sodium 6 MG Q6H 06/21 2100 DC Phosphate IV 07/21 Vital Signs Date Temp Pulse Resp B/P B/P Mean Pulse Ox FiO2 06/24-06/25 36.5-37.2 51-66 12-16 126-157/59-83 83.2-104.1 93-98 Last Documented: Result Date Time Pulse Ox 96 06/25 1929 B/P 157/68 06/25 1929 B/P Mean 97.3 06/25 1929 O2 Delivery Room air 06/25 1929 Temp 37.2 06/25 1929 Pulse 55 06/25 1929 Resp 14 06/25 1929 PATIENT WEIGHT: Weight (lb): Weight (oz): Weight (kg): 131.818 Physical Exam General appearance: alert, awake Head/Eyes: atraumatic, EOMI, normal conjunctiva/sclera, normal eyelids/periorb, normocephalic, PERRLA ENT: normal dentition, normal ear left, normal e ar right, normal nose, normal pharynx, normal sinus Neck: supple/no meningismus, no JVD Cardiovascular: normal capillary refill, regular rate rhythm Respiratory: clear to auscultation, no distress Abdomen: non-tender, soft, no distention, no gua rding, no hernia, no mass/ organomegaly, no rebound Rectal: not indicated Extremities: Extremities: moves all, no edema 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 Patient reports low-grade fever. Patient denies shortness of breath, headache, nausea, vo miting, chest pain, or other associated symptoms.Admissio n vital signs blood pressure 153 over 65, pulse 85, respiration 18, temperature 36.4, O2 sat 96% on room air. Abnormal labs WBC 12.2, potassium 3.1, glucose [address] MAXIFAC W/CONTRAST reveals: 1. Asymmetric enlargement of the right palatine tonsil, with a right peritonsillar fluid collection measuring 1 .5 x 0.9 x 1.0 cm. Moderate edema of the right lateral pharyngeal w all and true vocal folds are also noted. 1. Dysphagia secondary to peritonsillar abscess 2. Diabetes mellitus type 2 3. Hypertension 4. Dyslipidemia 5. Morbid obesity June 22, 2022: Patient reports he is feeling slightly better He is able to swallow He tolerated liquid diet Diet was advanced to soft diet He was seen and evaluated by ENT No surgical intervention at this time June 23, 2022: Continue to have some dysphagia with significant improvement overall Able to eat soft foods Continues IV antibiotics Reevaluate in the a.m. June 24, 2022: Symptoms improving 06/25/22 No changes Taper Decadron Plan of care: Continue with Unasyn Taper Decadron Consultants melanyal noted Pain control IV fluids Sliding scale insulin and add Lantus Antihypertensives Statin Keep on telemetry Daily labs Daily weight Monitor vital signs closely Neb treatment Continues current medications see above Monitor vital sign closely Strict I's and O's Will evaluate in a.m. for possible discharge Plan of care discussed with the patient, patient's spouse, patient's nurse, and Dr. Underwood. Electronically Signed by Junie Yu MEDICINE ASSISTANT on 1 10/09/21 at 0017 Electronically Signed by Jae Jaffe MD o n 08/11/22 at 0847 RPT #:[id number] END OF REPORT 2022-06-25 20:47:00-00:00 [facility]) Infectious Dis. Progress Note REPORT#:[id number] REPORT STATUS: Signed DATE:06/25/22 TIME: 2046 PATIENT: SONYA MINAYA UNIT #: [id number] ROOM/BED: [address] : [address] AGE: 66 SEX: M ATTEND: Jae Jaffe MD ADM AUTHOR: Mamadou Piedra MD * ALL edits or amendments must be made on the el [employer]ronic/computer document * Subjective Comments: Patient examined, chart reviewed, events of last 24 hours noted. See full dictated note. Electronically Signed by Mamadou Piedra MD on 11/15 at 2052 [facility] #:[id number] END OF REPORT 2022-06-25 02:23:00-00:00 [id number] [address] PATIENT NAME: SONYA MINAYA ADMIT DATE: 2 ACCOUNT NO: [id number] ROOM NO: [facility] AGE: 66 REPORT TYPE: PROGRESS NOTE SEX: M ADMITTING PHYSICIAN:Jae Jaffe MD ATTENDING PHYSICIAN:Jae Jaffe MD DATE: 06/24/2022 SUBJECTIVE: The patient examined, chart reviewed . Events of last 24 hours noted. The patient clinically is doing much bett er, remains awake and alert. Denies any new complaints. States that h is throat pain and swelling difficulty has significantly improved. Denies any fever or chills. Denies any headache, dizziness, or blurring of vision. Denies any nona athing problems. CURRENT MEDICATIONS: Include amiodarone, atorvas tatin, chlorhexidine oral care, clopidogrel, dexamethasone IV, glargine in sulin, losartan, metoprolol, pantoprazole, paroxetine, rivaroxaban, bupropion , Unasyn IV, docusate with senna p.r.n., glucagon p.r.n., hydrocodone babita trate p.r.n., loratadine p.r.n., hydralazine p.r.n., morphine sulfate p.r .n., ondansetron p.r.n. PHYSICAL EXAMINATION: GENERAL: The patient is resting in chair, fully conscious and alert, does not appear to be in any acute distress at the presen t time, does not appear to be toxic, and does not appear to be in any acute di stress. VITAL SIGNS: Temperature maximum since admission is 97.6 degrees Fahrenheit; however, the patient states that he had feverish feeling last night, blood pressure is 136/85, respirations 18 per minute, and pulse is 87 per minute. The patient's weight is around 131 kg. HEENT: Head is atraumatic and normocephalic. Pup ils are equal and reacting to light bilaterally. Extraocular movements are int act. Oropharyngeal examination shows erythema involving the tonsill ar area bilaterally. The erythema of the soft palate on the right side borden s significantly improved and the swelling is going down. Tenderness on the ri ght angle of jaw is still there, but significantly decreased. NECK: The patient's neck is otherwise supple. JV D is absent. No carotid bruit, thyromegaly, or cervical lymphadenopathy. The patient has a tender swelling on both upper neck, more so on the righ t side than left. LUNGS: There is fair air entry bilaterally. HEART: S1, S2 audible. No murmur appreciated. ABDOMEN: Soft and bulging nontender , no hepatosplenomegaly. Bowel sounds are normoactive. EXTREMITIES: Calves are soft. No calf tenderness . No significant edema. LABORATORY DATA: WBC is stable at around 9000 wi th hemoglobin of 13, hematocrit of 41, platelet count is 258. Serum s odium is 138, potassium 5.0, chloride 113, bicarbonate 15, glucose 162, BUN 7 , creatinine 0.9. Estimated GFR is 84, calcium is 8.9. ASSESSMENT AND PLAN: The patient with multiple c omorbidities, was initially admitted through the Emergency Room with worseni ng pain and swelling on the PATIENT NAME: SONYA MINAYA 4053 right side of his throat and found to have right peritonsillar abscess and that was extending to the right soft palate. The lance ent was started on IV Unasyn and was also started on dexamethasone after givi ng a dose of Solu-Medrol. The patient was evaluated by ENT and no surgical int ervention was suggested. Clinically, he has started t o show improvement in his condition and making slow progress. We will for now continue him on the pr esent regimen and monitor him closely for any new development. Once hi s abscess has significantly decreased, then we will consider switching him to oral Augm entin. Discussed with the patient's nursing staff. Dictated By: Mamadou Piedra MD Date Dictated: 06/25/2022 02:23:45 Date Transcribed: 06/25/2022 03:56:38 NERI/KATHARINA Receipt ID: [id number] Authenticated and Edited by Mamadou Piedra MD On 07/09/22 3:28:56 AM Electronically Signed by Mamadou Piedra MD on at 0331 PATIENT NAME: SONYA MINAYA [id number] 2022-06-24 21:49:00-00:00 [facility] REPORT#:[id number] REPORT STATUS: Signed DATE:06/24/22 TIME: 2148 PATIENT: SONYA MINAYA UNIT #: [id number] ROOM/BED: [place] [address] : 53 AGE: 66 SEX: M ATTEND: Jae Jaffe MD ADM AUTHOR: Junie Yu NP * ALL edits or amendments must be made on the [employer] document * Subjective Chief complaint: Peritonsillar abscess Review of Systems Constitutional: Denies: chills, fever. ENT: Reports: sore throat, throat pain. Denies: earac he, nasal congestion. Respiratory: Denies: hemoptysis, parox no cturnal dyspnea, pleurisy, pleuritic pain, pneumonia , SOB, wheezing. Cardiovascular: Denies: chest pain, palpitations. GI: Denies: abdominal pain, nausea, vomiting. : Denies: flank pain, frequency, hematuria. Musculoskeletal: Denies: extremity pain, extr emity swelling, joint pain, lumbar pain, neck pain. Neuro: Denies: change in LOC, confusion, dizziness, foc al weakness, gait problem, headache, lightheaded, numbness, seizure, slurre d speech, spinning sensation, syncope, unable to speak, vision change. Psych: Denies: agitation, anxiety, auditory hallucinati on, change in mental status, confusion, delusional, depre ssion, homicidal ideation, hostile, insomnia, stress , suicidal ideation, visual hallucination. Objective General VS/I O: Laboratory Tests 06/24 06/24 06/24 06/24 06/24 2040 1645 1147 0724 0500 Chemistry Sodium (134 - 147 mEq/L) 138 Potassium (3.4 - 5.0 mEq/L) 5.0 Chloride (100 - 108 mEq/L) 113 H Carbon Dioxide (21 - 33 mEq/l) 15 L Anion Gap (0 - 20) 15 BUN (7 - 18 mg/dL) 7 Creatinine (0.6 - 1.3 mg/dL) 0.9 Glomerular Filtr Rate (80 - 90) 83.9 Glucose (70 - 110 mg/dL) 162 H POC Glucose (70 - 110 MG/DL) 218 H 280 H 201 H 189 H Calcium (8.0 - 10.5 mg/dL) 8.9 06/23 1716 1150 0802 0410 Chemistry Sodium (134 - 147 mEq/L) 141 Potassium (3.4 - 5.0 mEq/L) 3.7 Chloride (100 - 108 mEq/L) 108 Carbon Dioxide (21 - 33 mEq/l) 23 Anion Gap (0 - 20) 13 BUN (7 - 18 mg/dL) 12 Creatinine (0.6 - 1.3 mg/dL) 0.9 Glomerular Filtr Rate (80 - 90) 83.9 Glucose (70 - 110 mg/dL) 174 H POC Glucose (70 - 110 MG/DL) 236 H 188 H 253 H 177 H Calcium (8.0 - 10.5 mg/dL) 8.5 Phosphorus (2.5 - 4.9 MG/DL) 2.4 L Magnesium (1.80 - 2.40 mg/dL) 1.98 06/22 06/22 06/22 06/22 06/22 1948 1540 1141 0751 0600 Chemistry POC Glucose (70 - 110 MG/DL) 254 H 244 H 223 H 156 H Hemoglobin A1c (4.8 - 6.0 %A1C) 7.0 H 06/22 06/21 0600 2330 Chemistry Sodium (134 - 147 mEq/L) 144 Potassium (3.4 - 5.0 mEq/L) 3.9 Chloride (100 - 108 mEq/L) 107 Carbon Dioxide (21 - 33 mEq/l) 24 Anion Gap (0 - 20) 17 BUN (7 - 18 mg/dL) 12 Creatinine (0.6 - 1.3 mg/dL) 1.1 Glomerular Filtr Rate (80 - 90) 66.6 L Glucose (70 - 110 mg/dL) 160 H Calcium (8.0 - 10.5 mg/dL) 9.6 Magnesium (1.80 - 2.40 mg/dL) 2.03 Troponin I High Sens (0 - 54 ng/L) 6 TSH (0.42 - 5.47 IU/mL) 1.06 Laboratory Tests 06/24 06/23 06/22 06/21 0500 0410 0600 2330 Hematology WBC (4.5 - 11.0 x10 3/uL) 9.2 10.6 11.4 H RBC (4.00 - 5.60 x10 6/uL) 4.55 4.08 4.36 Hgb (12.5 - 16.9 g/dL) 12.9 11.3 L 12.6 12.1 L Hct (37.5 - 50.7 %) 41.0 35.9 L 38.1 37.0 L MCV (81.0 - 99.0 fL) 90.1 88.0 87.4 MCH (27.0 - 33.0 pg) 28.4 27.7 28.9 MCHC (33.0 - 37.0 g/dL) 31.5 L 31.5 L 33.1 RDW (11.5 - 14.5 %) 15.8 H 15.7 H 15.8 H Plt Count (150 - 400 x10 3/uL) 258 230 241 MPV (7.0 - 9.0 fL) 10.9 H 10.6 H 10.4 H Neut % (Auto) (56.0 - 77.0 %) 84.0 H 86.4 H Lymph % (Auto) (14.0 - 32.0 %) 11.2 L 8.4 L [place] % (Auto) (4.8 - 9.0 %) 4.1 L 4.5 L Eos % (Auto) (0.3 - 3.7 %) 0.1 L 0.1 L Baso % (Auto) (0.0 - 2.0 %) 0.1 0.1 Neut # (Auto) (2.0 - 7.6 x10 3/uL) 7.69 H 9.15 H Lymph # (Auto) (1.0 - 3.8 x10 3/uL) 1.03 0.89 L [place] # (Auto) (0.1 - 0.8 x10 3/uL) 0.38 0.48 Eos # (Auto) (0.0 - 0.2 x10 3/uL) 0.01 0.01 Baso # (Auto) (0.0 - 0.2 x10 3/uL) 0.01 0.01 Abs Immat Gran (auto) (0.00 - 0.03 0.05 H 0.05 H x10 3/uL) Add Manual Diff NO NO Immature Gran % (0.0 - 2.0 %) 0.5 0.5 Nucleated RBC % (0 - 0 %) 0.0 0.0 Nucleated RBCs # (Man) (0.0 - 0.1 0.00 0.00 x10 3/uL) Chemistry: 06/24 1645 1147 0724 0500 Chemistry Sodium (134 - 147 mEq/L) 138 Potassium (3.4 - 5.0 mEq/L) 5.0 Chloride (100 - 108 mEq/L) 113 H Carbon Dioxide (21 - 33 mEq/l) 15 L BUN (7 - 18 mg/dL) 7 Creatinine (0.6 - 1.3 mg/dL) 0.9 Glucose (70 - 110 mg/dL) 162 H POC Glucose (70 - 110 MG/DL) 218 H 280 H 201 H 189 H Calcium (8.0 - 10.5 mg/dL) 8.9 Vital Signs: Date Time Temp Pulse Resp B/P B/P Pulse O2 O2 F low FiO2 Mean Ox Delivery Rate 06/24 2008 36.7 62 12 127/77 93.8 97 Room air 06/24 1704 20 06/24 1645 37.0 65 146/81 102.6 99 06/24 1207 20 06/24 1149 37.0 60 133/73 92.6 98 06/24 0756 36.7 61 18 145/70 95 98 06/24 0356 36.4 60 16 137/79 98.5 98 CPAP 06/238 36.8 56 16 122/69 86.5 98 CPAP Current Medications Sig/Jero Start time Last Medication Dose Route Stop Time Status Admin Insulin Human Lispro 0 AC HS 06/24 730 AC 1 SUBQ 07/24 729 1731 Rivaroxaban 20 MG DAILY 1700 06/23 1830 AC 1 PO 07/24 1659 1731 Amiodarone HCl 100 MG DAILY 06/23 09 AC 1 PO 07/23 0859 0918 Bupropion HCl 150 MG DAILY 06/23 900 AC 06/24 PO 07/23 0859 0918 Clopidogrel Bisulfate 75 MG DAILY 06/23 900 AC 06/24 PO 07/23 0859 09 Losartan Potassium 50 MG DAILY 06/23 900 AC PO 07/23 0859 09 Metoprolol Succinate 100 MG DAILY 06/23 900 AC 06/24 PO 07/23 0859 0918 Pantoprazole 40 MG DAILY 06/23 900 AC 06/24 PO 07/23 0859 09 Paroxetine HCl 40 MG DAILY 06/23 900 AC 06/24 PO 07/23 0859 09 Atorvastatin Calcium 40 MG 2100 06/22 2100 AC 1 PO 07/22 Dextrose/Water 125 ML ASDIR PRN 06/22 1315 CKD IV 07/22 1314 Dextrose/Water 250 ML ASDIR PRN 06/22 1315 CKD IV 07/22 1314 Glucagon 1 MG ASDIR PRN 06/22 1315 AC IM 07/22 1314 Insulin Glargine 15 UNIT BID 06/22 1315 AC 10/ 1 SUBQ 07/22 1314 2009 Loratadine 10 MG DAILY PRN PRN 06/22 1200 AC PO 07/22 1159 Acetaminophen 650 MG Q4H PRN PRN 06/22 0545 AC PO 07/22 0544 Docusate Sodium 100 MG BID PRN PRN 06/22 0545 A C PO 07/22 0544 Hydralazine HCl 10 MG Q6H PRN PRN 06/22 0545 AC IV 07/22 0544 Hydrocodone Bitart/ 1 TAB Q4H PRN PRN 06/22 054 5 AC Acetaminophen PO 06/27 0544 Ondansetron HCl 4 MG Q4H PRN PRN 06/22 0545 AC IV 07/22 0544 Ampicillin Sodium/ 3 GM Q6H 06/22 0330 AC 06/24 Sulbactam Sodium IV 07/02 0329 2010 Sodium Chloride 100 ML Chlorhexidine 15 ML BID 06/21 2130 AC 06/24 Gluconate PO 07/21 Morphine Sulfate 4 MG Q4H PRN PRN 06/21 2130 AC IV 06/26 2129 Dexamethasone Sodium 6 MG Q6H 06/21 2100 AC Phosphate IV 07/21 Vital Signs Date Temp Pulse Resp B/P B/P Mean Pulse Ox FiO2 06/23-06/24 36.4-37.0 56-65 12-20 122-146/69-81 86.5-102.6 97-99 Last Documented: Result Date Time Pulse Ox 97 06/24 2008 B/P 127/77 06/24 2008 B/P Mean 93.8 06/24 2008 O2 Delivery Room air 06/24 2008 Temp 36.7 06/24 2008 Pulse 62 06/24 2008 Resp 12 06/24 2008 PATIENT WEIGHT: Weight (lb): Weight (oz): Weight (kg): 131.818 Physical Exam General appearance: alert, awake, oriented Head/Eyes: atraumatic, EOMI, normal conjunctiva/sclera, normal eyelids/periorb, normocephalic, PERRLA ENT: normal dentition, normal ear left, normal e ar right, normal nose, normal pharynx, normal sinus Neck: supple/no meningismus, no JVD Cardiovascular: normal capillary refill, regular rate rhythm Respiratory: clear to auscultation, no distress Abdomen: non-tender, soft, no distention, no gua rding, no hernia, no mass/ organomegaly, no rebound Rectal: not indicated Extremities: Extremities: moves all, no edema 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 Patient reports low-grade fever. Patient denies shortness of breath, headache, nausea, vo miting, chest pain, or other associated symptoms.Admissio n vital signs blood pressure 153 over 65, pulse 85, respiration 18, temperature 36.4, O2 sat 96% on room air. Abnormal labs WBC 12.2, potassium 3.1, glucose [address] MAXIFAC W/CONTRAST reveals: 1. Asymmetric enlargement of the right palatine tonsil, with a right peritonsillar fluid collection measuring 1 .5 x 0.9 x 1.0 cm. Moderate edema of the right lateral pharyngeal w all and true vocal folds are also noted. 1. Dysphagia secondary to peritonsillar abscess 2. Diabetes mellitus type 2 3. Hypertension 4. Dyslipidemia 5. Morbid obesity June 22, 2022: Patient reports he is feeling slightly better He is able to swallow He tolerated liquid diet Diet was advanced to soft diet He was seen and evaluated by ENT No surgical intervention at this time June 23, 2022: Continue to have some dysphagia with significant improvement overall Able to eat soft foods Continues IV antibiotics Reevaluate in the a.m. June 24, 2022: Symptoms improving Plan of care: Continue with Unasyn Taper Decadron Consultants melanyal noted Pain control IV fluids Sliding scale insulin and add Lantus Antihypertensives Statin Keep on telemetry Daily labs Daily weight Monitor vital signs closely Neb treatment Continues current medications see above Monitor vital sign closely Strict I's and O's Will evaluate in a.m. for possible discharge Plan of care discussed with the patient, patient's spouse, patient's nurse, and Dr. Underwood. Electronically Signed by Junie Yu MEDICINE ASSISTANT on 1 at 0012 Electronically Signed by Jae Jaffe MD o n 07/24/22 at 0839 RPT #:[id number] END OF REPORT 2022-06-24 19:51:00-00:00 [facility] ([facility]) Infectious Dis. Progress Note REPORT#:[id number] REPORT STATUS: Signed DATE:06/24/22 TIME: 1950 PATIENT: SONYA MINAYA UNIT #: [id number] ROOM/BED: [place] [address] : 53 AGE: 66 SEX: M ATTEND: Jae Jaffe MD ADM AUTHOR: Mamadou Piedra MD * ALL edits or amendments must be made on the [employer]/computer document * Subjective Comments: Patient examined, chart reviewed, events of last 24 hours noted. See full dictated note. Electronically Signed by Mamadou Piedra MD on 10/15 at 1956 RPT #:[id number] END OF REPORT 2022-06-24 09:20:00-00:00 [id number] [place], [place] [address] PATIENT NAME: SONYA MINAYA ADMIT DATE: 2 ACCOUNT NO: [id number] ROOM NO: G.C135 AGE: 66 REPORT TYPE: PROGRESS NOTE SEX: M ADMITTING PHYSICIAN:Jae Jaffe MD ATTENDING PHYSICIAN:Jae Jaffe MD DATE: 06/23/2022 SUBJECTIVE: The patient examined, chart reviewed . Events of last 24 hours noted. The patient clinically is doing fairly we ll. He remains awake and alert. States that his pain and swelling in his throat has significantly improved. He is eating well and has no significa nt odynophagia. He denies any fever or chills. Denies any headache, di zziness, or blurring of vision. Denies any chest pain, cough, expectoration, or shortne ss of breath. Denies any abdominal pain, nausea, vomiting, or diarrhea. D enies any dysuria, hematuria, frequency or urgency. Denies any joint pains. CURRENT MEDICATIONS: Include amiodarone, atorvas tatin, chlorhexidine oral care, clopidogrel, dexamethasone IV, glargine in sulin, losartan, metoprolol, pantoprazole, paroxetine, rivaroxaban, bupropion , Unasyn IV, docusate with senna p.r.n., glucagon p.r.n., hydrocodone babita trate p.r.n., loratadine p.r.n., hydralazine p.r.n., morphine sulfate p.r .n., ondansetron p.r.n. PHYSICAL EXAMINATION: GENERAL: The patient is resting in chair, fully conscious and alert, does not appear to be in any acute distress at the presen t time, does not appear to be toxic, and does not appear to be in any acute di stress. VITAL SIGNS: Temperature maximum since admission is 97.6 degrees Fahrenheit; however, the patient states that he had feverish feeling last night, blood pressure is 136/85, respirations 18 per minute, and pulse is 87 per minute. The patient's weight is around 131 kg. HEENT: Head is atraumatic and normocephalic. Pup ils are equal and reacting to light bilaterally. Extraocular movements are int act. Oropharyngeal examination shows erythema involving the tonsill ar area bilaterally. The patient has significant enlargement of the right tonsil with swelling of the right peritonsillar region, which is ext ending to the palate on the right side as well. No purulence noted at the present time. NECK: The patient's neck is otherwise supple. JVD is absent. No carotid brui t, thyromegaly, or cervical lymphadenopathy. The patient has a tender swelli ng on both upper neck, more so on the right side than left. LUNGS: There is fair air entry bilaterally. HEART: S1, S2 audible. No murmur appreciated. ABDOMEN: Soft and bulging nontender, no hepatosp lenomegaly. Bowel sounds are normoactive. EXTREMITIES: Calves are soft. No calf tenderness . No significant edema. the soft palate swelling has slightly decreased. He still has mild tenderness on the right angle of the jaw area. LABORATORY DATA: WBC is stable around 11 ,000 with hemoglobin of 11, hematocrit of 36, platelet count is 230 . Serum sodium is 141, potassium 3.7, chloride 108, PATIENT NAME: SONYA MINAYA [id number] bicarbonate 23, glucose 174, BUN 12, creatinine 0.9. Estimated GFR is 84, calcium is 8.5, phosphorus is 2.4, magnesium is 1.98. A 2D echocardiogram done today shows left ventri cular cavity size is normal, wall thickness is increased, systolic function i s normal. The estimated ejection fraction is 55% to 60%. Regional wall m otion abnormalities cannot be excluded. Left ventricular diastolic function pa rameters are normal for the patient's age. Tricuspid valve shows mil d regurgitation. Prominent pericardial fat pad is present. There is no pericardial effu david. Inferior vena cava is normal in size. The respirop hasic diameter changes are within the normal range. ASSESSMENT AND PLAN: The patient with multiple c omorbidities, was admitted through the Emergency Room w ith worsening pain and swelling on the right side of his throat. The patient had been having off and on sore throat for the last about two months, but for 2 days prior t o hospitalization, his swelling within the right side of his throat and tonsillar area increased to a point where he had difficulty in swallowing. The patient was st arted on IV Unasyn and dexamethasone IV. Clinically, he has started to show improvement in his condition. He was evaluated by ENT and no surgic al intervention is planned at the present time. We will for now keep h im on the current IV antibiotics along with other supportive treatments. Discussed with the patient's nursing staff. Once he is ready to be discharged, then we will consider switching him to oral Augmentin. Dictated By: Mamadou Piedra MD Date Dictated: 06/24/2022 09:20:34 Date Transcribed: 06/24/2022 10:14:37 BORDEN/KATHARINA Receipt ID: [id number] Authenticated and Edited by Mamadou Piedra MD On 07/09/22 3:27:24 AM Electronically Signed by Mamadou Piedra MD on at 0329 PATIENT NAME: SONYA MINAYA [id number] 2022-06-23 21:24:00-00:00 [facility] REPORT#:[id number] REPORT STATUS: Signed DATE:06/23/22 TIME: 2123 PATIENT: SONYA MINAYA UNIT #: [id number] ROOM/BED: [place] [address] : 53 AGE: 66 SEX: M ATTEND: Jae Jaffe MD ADM AUTHOR: Junie Yu MEDICINE ASSISTANT * ALL edits or amendments must be made on the [employer]/computer document * Subjective Chief complaint: Peritonsillar abscess Review of Systems Constitutional: Denies: chills, fever. ENT: Reports: sore throat, throat pain. Denies: earac he, nasal congestion. Respiratory: Denies: hemoptysis, parox no cturnal dyspnea, pleurisy, pleuritic pain, pneumonia , SOB, wheezing. Cardiovascular: Denies: chest pain, palpitations. GI: Denies: abdominal pain, nausea, vomiting. : Denies: flank pain, frequency, hematuria. Musculoskeletal: Denies: extremity pain, extr emity swelling, joint pain, lumbar pain, neck pain. Neuro: Denies: change in LOC, confusion, dizziness, foc al weakness, gait problem, headache, lightheaded, numbness, seizure, slurre d speech, spinning sensation, syncope, unable to speak, vision change. Psych: Denies: agitation, anxiety, auditory hallucinati on, change in mental status, confusion, delusional, depre ssion, homicidal ideation, hostile, insomnia, stress , suicidal ideation, visual hallucination. Objective General VS/I O: Laboratory Tests 06/23 1716 1150 0802 0410 Chemistry Sodium (134 - 147 mEq/L) 141 Potassium (3.4 - 5.0 mEq/L) 3.7 Chloride (100 - 108 mEq/L) 108 Carbon Dioxide (21 - 33 mEq/l) 23 Anion Gap (0 - 20) 13 BUN (7 - 18 mg/dL) 12 Creatinine (0.6 - 1.3 mg/dL) 0.9 Glomerular Filtr Rate (80 - 90) 83.9 Glucose (70 - 110 mg/dL) 174 H POC Glucose (70 - 110 MG/DL) 236 H 188 H 253 H 177 H Calcium (8.0 - 10.5 mg/dL) 8.5 Phosphorus (2.5 - 4.9 MG/DL) 2.4 L Magnesium (1.80 - 2.40 mg/dL) 1.98 06/22 06/22 06/22 06/22 06/22 1948 1540 1141 0751 0600 Chemistry POC Glucose (70 - 110 MG/DL) 254 H 244 H 223 H 156 H Hemoglobin A1c (4.8 - 6.0 %A1C) 7.0 H 06/22 06/21 06/21 06/21 06/21 0600 2330 2000 1747 1737 Chemistry Sodium (134 - 147 mEq/L) 144 140 Potassium (3.4 - 5.0 mEq/L) 3.9 3.1 L Chloride (100 - 108 mEq/L) 107 102 Carbon Dioxide (21 - 33 mEq/l) 24 26 Anion Gap (0 - 20) 17 15 BUN (7 - 18 mg/dL) 12 14 Creatinine (0.6 - 1.3 mg/dL) 1.1 1.2 Glomerular Filtr Rate (80 - 90) 66.6 L 60.2 L Glucose (70 - 110 mg/dL) 160 H 135 H POC Glucose (70 - 110 MG/DL) 127 H Calcium (8.0 - 10.5 mg/dL) 9.6 9.7 Magnesium (1.80 - 2.40 mg/dL) 2.03 Troponin I High Sens (0 - 54 ng/L) 6 6 TSH (0.42 - 5.47 IU/mL) 1.06 Laboratory Tests 06/23 06/22 06/21 06/21 0410 0600 2330 1737 Hematology WBC (4.5 - 11.0 x10 3/uL) 10.6 11.4 H 12.2 H RBC (4.00 - 5.60 x10 6/uL) 4.08 4.36 4.65 Hgb (12.5 - 16.9 g/dL) 11.3 L 12.6 12.1 L 13.2 Hct (37.5 - 50.7 %) 35.9 L 38.1 37.0 L 40.6 MCV (81.0 - 99.0 fL) 88.0 87.4 87.3 MCH (27.0 - 33.0 pg) 27.7 28.9 28.4 MCHC (33.0 - 37.0 g/dL) 31.5 L 33.1 32.5 L RDW (11.5 - 14.5 %) 15.7 H 15.8 H 16.1 H Plt Count (150 - 400 x10 3/uL) 230 241 243 MPV (7.0 - 9.0 fL) 10.6 H 10.4 H 10.7 H Neut % (Auto) (56.0 - 77.0 %) 86.4 H 80.9 H Lymph % (Auto) (14.0 - 32.0 %) 8.4 L 10.6 L [place] % (Auto) (4.8 - 9.0 %) 4.5 L 7.6 Eos % (Auto) (0.3 - 3.7 %) 0.1 L 0.1 L Baso % (Auto) (0.0 - 2.0 %) 0.1 0.3 Neut # (Auto) (2.0 - 7.6 x10 3/uL) 9.15 H 9.90 H Lymph # (Auto) (1.0 - 3.8 x10 3/uL) 0.89 L 1.30 [place] # (Auto) (0.1 - 0.8 x10 3/uL) 0.48 0.93 H Eos # (Auto) (0.0 - 0.2 x10 3/uL) 0.01 0.01 Baso # (Auto) (0.0 - 0.2 x10 3/uL) 0.01 0.04 Abs Immat Gran (auto) (0.00 - 0.03 x10 3/uL) 0. 05 H 0.06 H Add Manual Diff NO NO Immature Gran % (0.0 - 2.0 %) 0.5 0.5 Nucleated RBC % (0 - 0 %) 0.0 0.0 Nucleated RBCs # (Man) (0.0 - 0.1 x10 3/uL) 0.0 0 0.00 Laboratory Tests 06/21 1747 Serology Group A Strep Screen (Negative) Negative Microbiology Date/Time Procedure - Status Source Growth 06/21 1747 Streptococcus Culture - COMP THROAT Chemistry: 06/23 1716 1150 0802 0410 Chemistry Sodium (134 - 147 mEq/L) 141 Potassium (3.4 - 5.0 mEq/L) 3.7 Chloride (100 - 108 mEq/L) 108 Carbon Dioxide (21 - 33 mEq/l) 23 BUN (7 - 18 mg/dL) 12 Creatinine (0.6 - 1.3 mg/dL) 0.9 Glucose (70 - 110 mg/dL) 174 H POC Glucose (70 - 110 MG/DL) 236 H 188 H 253 H 177 H Calcium (8.0 - 10.5 mg/dL) 8.5 Phosphorus (2.5 - 4.9 MG/DL) 2.4 L Magnesium (1.80 - 2.40 mg/dL) 1.98 Microbiology: 06/21 1747 THROAT: Streptococcus Culture - COMP Vital Signs: Date Time Temp Pulse Resp B/P B/P Pulse O2 O2 F low FiO2 Mean Ox Delivery Rate 06/23 1921 36.7 65 18 119/72 87.5 96 Room air 06/23 1721 36.3 57 14 124/65 84.3 96 Room air 06/23 1152 36.7 76 14 131/75 94.0 96 Room air 06/23 0805 36.5 75 14 132/76 94.8 98 Room air 06/23 0411 36.6 74 18 111/55 73.5 96 06/22 2255 37.0 81 17 137/82 100.5 96 06/23 0700 06/22 2300 06/22 1500 Intake Total 1275.00 Output Total Balance 1275.00 Intake, IV 525.00 Intake, Oral 750 Number 1 Bowel Movements Number Voids 8 Current Medications Sig/Jero Start time Last Medication Dose Route Stop Time Status Admin Rivaroxaban 20 MG DAILY 1700 06/23 1830 AC 05/27 0 PO 07/24 1659 1858 Amiodarone HCl 100 MG DAILY 06/23 0900 AC 06/23 PO 07/23 0859 0901 Bupropion HCl 150 MG DAILY 06/23 09 AC 06/23 PO 07/23 0859 0859 Clopidogrel Bisulfate 75 MG DAILY 06/23 09 AC 06/23 PO 07/23 0859 0901 Losartan Potassium 50 MG DAILY 06/23 09 AC PO 07/23 0859 0859 Metoprolol Succinate 100 MG DAILY 06/23 09 AC 06/23 PO 07/23 0859 0858 Pantoprazole 40 MG DAILY 06/23 0900 AC 06/23 PO 07/23 0859 0858 Paroxetine HCl 40 MG DAILY 06/23 09 AC 06/23 PO 07/23 0859 0857 Perflutren Protein 0 [facility] 06/23 0837 DC 06/23 Type A Microsphe IV 1205 Atorvastatin Calcium 40 MG 2100 06/22 2100 AC 0 06/23 PO 07/22 Rivaroxaban 20 MG DAILY 1700 06/22 1700 AC PO 07/22 1159 Dextrose/Water 125 ML ASDIR PRN 06/22 1315 CKD IV 07/22 1314 Dextrose/Water 250 ML ASDIR PRN 06/22 1315 CKD IV 07/22 1314 Glucagon 1 MG ASDIR PRN 06/22 1315 AC IM 07/22 1314 Insulin Glargine 15 UNIT BID 06/22 1315 AC 05/27 0 SUBQ 07/22 1314 2040 Insulin Human Lispro 0 TID PRN PRN 06/22 1200 PEND SUBQ 07/22 1159 Loratadine 10 MG DAILY PRN PRN 06/22 1200 AC PO 07/22 1159 Acetaminophen 650 MG Q4H PRN PRN 06/22 0545 AC PO 07/22 0544 Docusate Sodium 100 MG BID PRN PRN 06/22 0545 AC PO 07/22 0544 Hydralazine HCl 10 MG Q6H PRN PRN 06/22 0545 AC IV 07/22 0544 Hydrocodone Bitart/ 1 TAB Q4H PRN PRN 06/22 054 5 AC Acetaminophen PO 06/27 0544 Ondansetron HCl 4 MG Q4H PRN PRN 06/22 0545 AC IV 07/22 0544 Ampicillin Sodium/ 3 GM Q6H 06/22 0330 AC 06/23 Sulbactam Sodium IV 07/02 329 204 Sodium Chloride 100 ML Chlorhexidine 15 ML BID 06/21 2130 AC 06/23 Gluconate PO 07/21 Morphine Sulfate 4 MG Q4H PRN PRN 06/21 2130 AC IV 06/26 2129 Sodium Chloride 1,000 ML .[id number] 06/21 213 DC 06/21 IV 07/21 Dexamethasone Sodium 6 MG Q6H 06/21 2100 AC Phosphate IV 07/21 Recent Impressions-Last 72 Hrs CAT SCAN - CT MAXIFAC W/CONTRAST 06/21 1857 Report Impression - Status: SIGNED Entered: 06/21/20221924 IMPRESSION: 1. Asymmetric enlargement of the right palatine tonsil, with a right peritonsillar fluid collection measuring 1 .5 x 0.9 x 1.0 cm. Moderate edema of the right lateral pharyngeal w all and true vocal folds are also noted. 2. In this age group, an underlying mass would b e difficult to exclude and follow-up to resolution is recommend ed. ENT consultation may be helpful. 3. Mildly enlarged, likely reactive jugular aurelia n lymph nodes. Impression By: [email or web address] - Jony Kellogg M.D. Vital Signs Date Temp Pulse Resp B/P B/P Mean Pulse Ox FiO2 06/22-06/23 36.3-37.0 57-81 14-18 111-137/55-82 73.5-100.5 96-98 Last Documented: Result Date Time Pulse Ox 96 06/23 1921 B/P 119/72 06/23 1921 B/P Mean 87.5 06/23 1921 O2 Delivery Room air 06/23 1921 Temp 36.7 06/23 1921 Pulse 65 06/23 1921 Resp 18 06/23 1921 24 hour I O ending at 0700: 06/23 0700 06/22 190 Intake Total 1275.00 Output Total Balance 1275.00 Intake, IV 525.00 Intake, Oral 750 Number 1 Bowel Movements Number Voids 8 PATIENT WEIGHT: Weight (lb): Weight (oz): Weight (kg): 131.818 Physical Exam General appearance: alert, awake, oriented Head/Eyes: atraumatic, EOMI, normal conjunctiva/sclera, normal eyelids/periorb, normocephalic, PERRLA ENT: normal dentition, normal ear left, normal e ar right, normal nose, normal pharynx, normal sinus Neck: supple/no meningismus, no JVD Cardiovascular: normal capillary refill, regular rate rhythm Respiratory: clear to auscultation, no distress Abdomen: non-tender, soft, no distention, no gua rding, no hernia, no mass/ organomegaly, no rebound Rectal: not indicated Extremities: Extremities: moves all, no edema 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 Patient reports low-grade fever. Patient denies shortness of breath, headache, nausea, vo miting, chest pain, or other associated symptoms.Admissio n vital signs blood pressure 153 over 65, pulse 85, respiration 18, temperature 36.4, O2 sat 96% on room air. Abnormal labs WBC 12.2, potassium 3.1, glucose [address] MAXIFAC W/CONTRAST reveals: 1. Asymmetric enlargement of the right palatine tonsil, with a right peritonsillar fluid collection measuring 1 .5 x 0.9 x 1.0 cm. Moderate edema of the right lateral pharyngeal w all and true vocal folds are also noted. 1. Dysphagia secondary to peritonsillar abscess 2. Diabetes mellitus type 2 3. Hypertension 4. Dyslipidemia 5. Morbid obesity June 22, 2022: Patient reports he is feeling slightly better He is able to swallow He tolerated liquid diet Diet was advanced to soft diet He was seen and evaluated by ENT No surgical intervention at this time June 23, 2022: Continue to have some dysphagia with significant improvement overall Able to eat soft foods Continues IV antibiotics Reevaluate in the a.m. Plan of care: Continue with Unasyn Decadron Consultants eval noted Pain control IV morphine IV fluids Sliding scale insulin and add Lantus Antihypertensives Statin Keep on telemetry Daily labs Daily weight Monitor vital signs closely Neb treatment Continues current medications see above Monitor vital sign closely Strict I's and O's Plan of care discussed with the patient, patient's spouse, patient's nurse, and Dr. Underwood. Electronically Signed by Junie Yu MEDICINE ASSISTANT on 1 at 0328 Electronically Signed by Jae Jaffe MD o n 07/24/22 at 0839 RPT #:[id number] END OF REPORT 2022-06-23 20:48:00-00:00 [facility] ([facility]) Infectious Dis. Progress Note REPORT#:[id number] REPORT STATUS: Signed DATE:06/23/22 TIME: 2047 PATIENT: SONYA MINAYA UNIT #: [id number] ROOM/BED: [place] [address] : 53 AGE: 66 SEX: M ATTEND: Jae Jaffe MD ADM AUTHOR: Mamadou Piedra MD * ALL edits or amendments must be made on the el [employer]/computer document * Subjective Comments: Patient examined, chart reviewed, events of last 24 hours noted. See full dictated note. Electronically Signed by Mamadou Piedra MD on at 2053 RPT #:[id number] END OF REPORT 2022-06-23 17:13:00-00:00 [id number] [address] PATIENT NAME: SONYA MINAYA ADMIT DATE: 2 ACCOUNT NO: [id number] ROOM NO: [id number] AGE: 66 REPORT TYPE: eECHOCARDIOGRAM REPORT SEX: M ADMITTING PHYSICIAN:Jae Jaffe MD ATTENDING PHYSICIAN:Jae Jaffe MD *[address] [address] Transthoracic Echocardiogram Patient: Sonya Minaya Study Date: 06/23/2022 BP: 111 / 55 Location: [facility] URN: [id number] 053 : 1955 Age: 66 Height: 69 in / 175.3 cm Gender: M Weight: 289 .4 lb / 131.5 kg BMI/BSA: 42.8 kg/m 2 / 2.59 m 2 *Ordering Physician: * Ian Coronel MD *Interpreting Physician: * Ian Coronel MD *Popcorn Machine Operator: Angi Salmon Indications: CABG. Study data: Transthoracic echocardiogram. Proced ure: Transthoracic echocardiography was performed. Image quality wa s good. The study was technically limited due to poor patient complian ce, restricted patient mobility, and body habitus. Intravenous contrast (Optison, 3 mls) was administered. Complete 2D, complete spectral Dop pler, and color Doppler. Location: Bedside. Patient status: Inok ainsley. Patient room number: C135. Study status: Routine. Findings Left ventricle: The cavity size is normal. Wall thickness is increased. Systolic function is normal. The estimated eject ion fraction is 55-60%. Regional wall motion abnormalities cannot be exc luded. Left ventricular diastolic function parameters are normal for the patient's age. PATIENT NAME: SONYA MINAYA 4053 Right ventricle: The cavity size is normal. Syst olic function is normal. Left atrium: The atrium is normal in size. Right atrium: The atrium is normal in size. Aorta: Aortic root: The aortic root is normal in size. Aortic valve: The valve is structurally normal. The valve is trileaflet. There is no evidence of stenosis. Th ere is no regurgitation. Mitral valve: The valve is structurally normal. There is no evidence of stenosis. There is mild regurgitatio n. Tricuspid valve: RVSP calculated 34.14 mmHg. The valve is structurally normal. There is mild regurgitation. Pulmonic valve: The valve is structurally normal . There is no regurgitation. Pericardium: A prominent pericardial fat pad is present. There is no pericardial effusion. Pulmonary arteries: The main pulmonary artery is normal-sized. Systemic veins: Inferior vena cava: The vessel is normal in size . The respirophasic diameter changes are in the normal range (= 50%) . Measurements Left ventricle Value Ref ALTAGRACIA, LAX 5.4 cm 4.2 - 5.8 ESD, LAX 3.7 cm 2.5 - 4.0 ESD/bsa, LAX 1.4 cm/m 2 1.3 - 2.1 FS, LAX 32 % 25 - 43 ESD/bsa major 3.0 cm/m 2 --------- ax, A4C ALTAGRACIA/bsa minor 3.0 cm/m 2 --------- ax, A4C ALTAGRACIA major ax, 9.0 cm --------- A2C ALTAGRACIA/bsa major 3.5 cm/m 2 --------- ax, A2C PW, ED 1.3 cm 0.6 - 1.0 IVS/PW, ED 0.85 --------- EF 60 % 52 - 72 E', lat [place], TDI 15.0 cm/sec >=10.0 E/e', lat [place], 6 --------- TDI E', med [place], TDI 16.7 cm/sec >=7.0 E/e', med [place], 5 --------- TDI E', avg, TDI 15.9 cm/sec --------- E/e', avg, TDI 6 <=14 LVOT Value Ref Diam, S 2.00 cm --------- Area 3.1 cm 2 --------- Peak te, S 0.95 m/sec --------- PATIENT NAME: SONYA MINAYA 4053 Mean te, S 0.65 m/sec --------- VTI, S 26.8 cm --------- Peak grad, S 4 mm Hg --------- Mean grad, S 2 mm Hg --------- SV 86 ml --------- Qs 5.81 L/min --------- Qs/bsa 2.2 L/(min-m 2) --------- SV/bsa 33 ml/m 2 --------- Ventricular septum Value Ref IVS, ED 1.1 cm 0.6 - 1.0 Right ventricle Value Ref ALTAGRACIA, LAX 2.7 cm --------- Pressure, S 34 mm Hg --------- Left atrium Value Ref AP dim, ES 3.65 cm 3.00 - 4.00 AP dim, ES MM 3.8 cm 3.0 - 4.0 LA/Ao root 1.12 --------- ratio, MM Aortic valve Value Ref Leaflet sep, MM 2.31 cm --------- Peak v, S 1.12 m/sec --------- Peak grad, S 5.1 mm Hg --------- LVOT/AV, Vpeak 0.85 --------- ratio SHANNAN, Vmax 2.71 cm 2 --------- Mitral valve Value Ref Peak E 0.16 m/sec --------- Peak A 0.54 m/sec --------- Mean v, D 0.63 m/sec --------- VTI leaflet 30.5 cm --------- coapt Decel time 260 ms --------- PHT 75 ms --------- Mean grad, D 1.9 mm Hg --------- Peak grad, D 5.1 mm Hg --------- Peak E/A ratio 1.63 --------- MVA, PHT 3.0 cm 2 --------- Pulmonic valve Value Ref MO v, ED 0.68 m/sec --------- Tricuspid valve Value Ref TR peak v 2.46 m/sec <=2.8 Peak RV-RA grad, 24 mm Hg --------- S Aortic root Value Ref Root diam 3.4 cm <4.6 PATIENT NAME: SONYA MINAYA 4053 Root diam, ED MM 3.42 cm --------- Ascending aorta Value Ref AAo AP diam, S 3.6 cm --------- AAo AP diam/bsa, 1.4 cm/m 2 --------- S Pulmonary artery Value Ref Pressure, S 29.8 mm Hg --------- Systemic veins Value Ref Estimated CVP 10 mm Hg --------- Conclusions Summary: 1. Left ventricle: The cavity size is normal. Wa ll thickness is increased. Systolic function is normal. The est imated ejection fraction is 55-60%. Regional wall motion abnorm alities cannot be excluded. Left ventricular diastolic function p arameters are normal for the patient's age. 2. Tricuspid valve: RVSP calculated 34.14 mmHg. There is mild regurgitation. 3. Pericardium, extracardiac: A prominent perica rdial fat pad is present. There is no pericardial effusion. 4. Inferior vena cava: The vessel is normal in s ize. The respirophasic diameter changes are in the normal range (= 50% ). Prepared and electronically signed by Ian Coronel MD 06/23/2022 17:13 Electronically Signed by Ian Coronel MD on 0 06/23/22 at 1713 PATIENT NAME: SONYA MINAYA 4053 2022-06-23 12:19:00-00:00 [id number] [address] PATIENT NAME: SONYA MINAYA ADMIT DATE: 2 ACCOUNT NO: [id number] ROOM NO: [facility] AGE: 66 REPORT TYPE: CONSULTATION REPORT SEX: M ADMITTING PHYSICIAN:Jae Jaffe MD ATTENDING PHYSICIAN:Jae Jaffe MD CONSULTATION DATE: FOLLOWUP ENT CONSULTATION HISTORY OF PRESENT ILLNESS: The patient remains asymptomatic. No pain, no fever. No swallowing or breathing issues. He rem ains afebrile. PHYSICAL EXAMINATION: His exam shows minimal swe lling in the right peritonsillar area. IMPRESSION: My impression is that he has respond ed nicely to the antibiotic. His white count is coming down. I think he, from my standpoint, does not need surgical intervention at thi s time. The abscess was small, greatest diameter is 1.5 cm. Many of those resolved without the need for incision and drainage. RECOMMENDATIONS: My recommendation is to dischar ge the patient on clindamycin 300 mg t.i.d. for one week and follow up with me if needed. Dictated By: Elijah Crawford MD Date Dictated: 06/23/2022 12:19:57 Date Transcribed: 06/23/2022 12:28:24 CLS/SULTANA Receipt ID: [id number] Authenticated by Elijah Crawford MD On 12:03:48 PM Electronically Signed by Elijah Crawford MD on 1 at 1203 PATIENT NAME: SONYA MINAYA 4053 2022-06-23 10:54:00-00:00 [facility] REPORT#:[id number] REPORT STATUS: Signed DATE:06/23/22 TIME: 1054 PATIENT: SONYA MINAYA UNIT #: [id number] ROOM/BED: [place] [address] : 53 AGE: 66 SEX: M ATTEND: Jae Jaffe MD ADM AUTHOR: Emily Zapata NP * ALL edits or amendments must be made on the [employer]/computer document * Subjective Chief complaint: doing ok Objective General VS/I O: Laboratory Tests 06/23/22 0410: [Embedded Image Not Available] 06/22/22 0600: [Embedded Image Not Available] 06/21/22 2330: [Embedded Image Not Available] 06/21/22 1737: [Embedded Image Not Available] Current Medications Sig/Jero Start time Last Medication Dose Route Stop Time Status Admin Amiodarone HCl 100 MG DAILY 06/23 900 AC 06/23 PO 07/23 859 09 Bupropion HCl 150 MG DAILY 06/23 900 AC 06/23 PO 07/23 859 08 Clopidogrel Bisulfate 75 MG DAILY 06/23 900 AC 06/23 PO 07/23 859 09 Losartan Potassium 50 MG DAILY 06/23 900 AC PO 07/23 859 0859 Metoprolol Succinate 100 MG DAILY 06/23 900 A C 06/23 PO 10/30 0859 0858 Pantoprazole 40 MG DAILY 06/23 0900 AC 06/23 PO 07/23 0859 0858 Paroxetine HCl 40 MG DAILY 06/23 09 AC 06/23 PO 07/23 0859 0857 Perflutren Protein 0 .STK-MED ONE 06/23 0837 DC Type A Microsphe IV Enoxaparin Sodium 40 MG Q12H 06/23 0600 CAN SUBQ 07/23 0559 Atorvastatin Calcium 40 MG 2100 06/22 2100 AC 0 06/22 PO 07/22 2059 2135 Rivaroxaban 20 MG DAILY 1700 06/22 1700 DA PO 07/22 1159 Insulin Human Lispro 0 AC HS 06/22 1630 CAN SUBQ 07/22 1629 Dextrose/Water 125 ML ASDIR PRN 06/22 1315 CKD IV 07/22 1314 Dextrose/Water 250 ML ASDIR PRN 06/22 1315 CKD IV 07/22 1314 Glucagon 1 MG ASDIR PRN 06/22 1315 AC IM 07/22 1314 Insulin Glargine 15 UNIT BID 06/22 1315 AC SUBQ 07/22 1314 0900 Insulin Human Lispro 0 TID PRN PRN 06/22 1200 P END SUBQ 07/22 1159 Loratadine 10 MG DAILY PRN PRN 06/22 1200 AC PO 07/22 1159 Acetaminophen 650 MG Q4H PRN PRN 06/22 0545 AC PO 07/22 0544 Docusate Sodium 100 MG BID PRN PRN 06/22 0545 A C PO 07/22 0544 Hydralazine HCl 10 MG Q6H PRN PRN 06/22 0545 AC IV 07/22 0544 Hydrocodone Bitart/ 1 TAB Q4H PRN PRN 06/22 05 45 AC Acetaminophen PO 06/27 0544 Ondansetron HCl 4 MG Q4H PRN PRN 06/22 0545 AC IV 07/22 0544 Ampicillin Sodium/ 3 GM Q6H 06/22 0330 AC 06/23 Sulbactam Sodium IV 07/02 0329 0900 Sodium Chloride 100 ML Chlorhexidine 15 ML BID 06/210 AC 06/23 Gluconate PO 07/21 2129 0857 Morphine Sulfate 4 MG Q4H PRN PRN 06/21 2130 AC IV 06/26 2129 Sodium Chloride 1,000 ML .[id number] 06/210 AC 06/21 IV 07/21 Dexamethasone Sodium 6 MG Q6H 06/21 2100 AC Phosphate IV 07/21 Hydrocodone Bitart/ 1 TAB Q4H PRN PRN 06/21 200 0 DC Acetaminophen PO 06/22 1853 24 hour I O ending at 0700: 06/23 0700 06/22 1900 Intake Total 1275.00 Output Total Balance 1275.00 Intake, IV 525.00 Intake, Oral 750 Number 1 Bowel Movements Number Voids 8 Vital Signs: Date Time Temp Pulse Resp B/P B/P Pulse O2 O2 F low FiO2 Mean Ox Delivery Rate 06/23 0805 36.5 75 14 132/76 94.8 98 Room air 06/23 0411 36.6 74 18 111/55 73.5 96 06/22 2255 37.0 81 17 137/82 100.5 96 06/22 1848 36.8 84 18 121/76 91.3 95 06/22 1542 36.8 92 12 154/75 101.1 96 Room air 06/22 1144 36.7 78 12 121/81 94.2 95 Room air PATIENT WEIGHT: Weight (lb): Weight (oz): Weight (kg): 131.818 Physical Exam General appearance: alert, awake, oriented, no a cute distress, pleasant Head/Eyes: atraumatic, PERRL Cardiovascular: CV assessment: regular rate and rhythm, pedal p ulses present Respiratory: clear to auscultation, no distress Abdomen: soft, non-tender, normal bowel sounds, no distention, no guarding Lower extremity: LE assessment: normal capillary refill, normal temperature, no edema 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, oriented X 3 Skin: dry, intact Diagnosis, Assessment Plan Free Text DxA P Notes Free Text DxA P Notes: 1. Peritonsillar abscess ENT eval- no surgical intervention at this time on IV antibiotics if surgery is needed and echo is stable then ok to proceed from cardiac standpoint if indicated 2. Dysphagia due to abscess improved, able to swallow 3. CAD s/p CABG continue statin, bb, plavix echo pending stable 4. PAF- in NSR continue bb, amiodarone, xarelto 5. Hypertension bp controlled with current meds continue losartan, bb Electronically Signed by Emily Zapata NP on 0 06/23/22 at 1137 Electronically Signed by Ian Coronel MD on at 1719 [facility] #:[id number] END OF REPORT 2022-06-23 09:01:00-00:00 [id number] [place] [address] PATIENT NAME: SONYA MINAYA ADMIT DATE: 2 ACCOUNT NO: [id number] ROOM NO: [id number] AGE: 66 REPORT TYPE: PROGRESS NOTE SEX: M ADMITTING PHYSICIAN:Jae Jaffe MD ATTENDING PHYSICIAN:Jae Jaffe MD DATE: 06/22/2022 SUBJECTIVE: The patient was examined and chart r isaacweitzel. Events of last 24 hours noted. The patient clinically is doing bet ter. He remains awake and alert. Denies any new complaints. States that hi s odynophagia and dysphagia has significantly improved and now he is able to eat and drink. He even ate solid food. Denies any fever or chills. Denies a ny chest pain, cough, expectoration, or shortness of breath. D enies abdominal pain, nausea, vomiting or diarrhea. CURRENT MEDICATIONS: Include amiodarone, atorvastatin, chlorhexidine oral care, clopidogrel, dexamethasone IV, glargine insulin, losartan, metoprolol, pantoprazole, paroxetine, ri varoxaban, bupropion, Unasyn IV, docusate with senna p.r.n., glucagon p.r.n., hydrocodone bitartrate p.r.n., loratadine p.r.n., hydralazine p.r.n., morphine sulfate p.r.n., ond ansetron p.r.n. PHYSICAL EXAMINATION: GENERAL: The patient is resting in chair, fully conscious and alert, does not appear to be in any acute distress at the presen t time, does not appear to be toxic, and does not appear to be in any acute di stress. VITAL SIGNS: Temperature maximum since admission is 97.6 degrees Fahrenheit; however, the patient states that he had feverish feeling last night, blood pressure is 136/85, respirations 18 per minute, and pulse is 87 per minute. The patient's weight is around 131 kg. HEENT: Head is atraumatic and normocephalic. Pup ils are equal and reacting to light bilaterally. Extraocular movements are int act. Oropharyngeal examination shows erythema involving the tonsill ar area bilaterally. The patient has significant enlargement of the right tonsil with marked swelling of the right peritonsillar region, which is exte nding to the palate on the right side as well. No purulence noted at the pr esent time. NECK: The patient's neck is otherwise supple. JV D is absent. No carotid bruit, thyromegaly, or cervical lymphadenopathy. The patient has a tender swelling on both upper neck, more so on the righ t side than left. LUNGS: There is fair air entry bilaterally. HEART: S1, S2 audible. No murmur appreciated. ABDOMEN: Soft and bulging nontender, no hepatosp lenomegaly. Bowel sounds are normoactive. EXTREMITIES: Calves are soft. No calf tenderness . No significant edema. LABORATORY DATA: The scale manager, hemoglobin w as 12, hematocrit was 37. WBC this morning is around 11,00 0 with hemoglobin of 13, hematocrit of 38, platelet count is 241. Hemoglobin A1c is 7.0. Serum sodiu m is 144, potassium 3.9, chloride 107, bicarbonate 24 , glucose 160, BUN 12, creatinine 1.1, calcium 9.6, PATIENT NAME: SONYA MINAYA 4053 magnesium 2.03. TSH is 1.06. ASSESSMENT AND PLAN: The patient with multiple c omorbidities, was initially admitted through the Emergency Room with worseni ng odynophagia and dysphagia. The patient had these sympto ms started about 2 months ago with bilateral throat pain, which showed improvement with a course of amoxicillin. The patient subsequently had worsening and recurrenc e again and at that time, he took some antibiotics, which he kenyetta t from [place]. On further inquiry, it was found out that the Maltese antibiotic was also amoxicillin. The patient at this time, did not have much improvement. W ithin the last 2 days, the patient's throat pain and swelling increased to a point where he was not a ble to swallow any liquids or his own saliva. The patient was brought to the e mergency room. He was started on IV Unasyn and steroids. The patient has under gone CT of the soft tissue of the neck, which had shown peritonsillar abscess. Clinically, he is making slow progress on the current IV a ntibiotic regimen. For now, we will keep him on the same antibiotic. Discussed with is DOROTEO Yu a nd with the patient's nursing staff. Dictated By: Mamadou Piedra MD Date Dictated: 06/23/2022 09:01:02 Date Transcribed: 06/23/2022 09:23:36 BORDEN/SULTANA/AMI Receipt ID: [id number] Authenticated and Edited by Mamadou Piedra MD On 07/09/22 3:26:27 AM Electronically Signed by Mamadou Piedra MD on at 0327 PATIENT NAME: SONYA MINAYA 4053 2022-06-22 23:10:00-00:00 [facility] Prog. Note REPORT#:[id number] REPORT STATUS: Signed DATE:06/22/22 TIME: 2309 PATIENT: SONYA MINAYA UNIT #: [id number] ROOM/BED: [place] [address] : 53 AGE: 66 SEX: M ATTEND: Jae Jaffe MD ADM AUTHOR: Junie Yu NP * ALL edits or amendments must be made on the [employer]/computer document * Subjective Chief complaint: Peritonsillar abscess Review of Systems Constitutional: Denies: chills, fever. ENT: Reports: sore throat, throat pain. Denies: earac he, nasal congestion. Respiratory: Denies: hemoptysis, parox no cturnal dyspnea, pleurisy, pleuritic pain, pneumonia , SOB, wheezing. Cardiovascular: Denies: chest pain, palpitations. GI: Denies: abdominal pain, nausea, vomiting. : Denies: flank pain, frequency, hematuria. Musculoskeletal: Denies: extremity pain, extr emity swelling, joint pain, lumbar pain, neck pain. Neuro: Denies: change in LOC, confusion, dizziness, foc al weakness, gait problem, headache, lightheaded, numbness, seizure, slurre d speech, spinning sensation, syncope, unable to speak, vision change. Psych: Denies: agitation, anxiety, auditory hallucinati on, change in mental status, confusion, delusional, depre ssion, homicidal ideation, hostile, insomnia, stress , suicidal ideation, visual hallucination. Objective General VS/I O: Vital Signs Date Temp Pulse Resp B/P B/P Mean Pulse Ox FiO2 06/22 36.5-37.4 78-92 12-18 121-154/75-82 91.3- 101.9 94-96 Last Documented: Result Date Time Pulse Ox 96 06/22 225 B/P 137/82 06/225 B/P Mean 100.5 06/225 Temp 37.0 06/22 225 Pulse 81 06/22 2255 Resp 17 06/22 225 O2 Delivery Room air 06/22 1542 24 hour I O ending at 0700: 06/22 0700 06/21 1900 Intake Total Output Total Balance Patient 131.818 kg Weight Weight Stated/Reported Measurement Method PATIENT WEIGHT: Weight (lb): Weight (oz): Weight (kg): 131.818 Physical Exam General appearance: alert, awake Head/Eyes: atraumatic, EOMI, normal conjunctiva/sclera, normal eyelids/periorb, normocephalic, PERRLA ENT: normal dentition, normal ear left, normal e ar right, normal nose, normal pharynx, normal sinus Neck: supple/no meningismus, no JVD Cardiovascular: normal capillary refill, regular rate rhythm Respiratory: clear to auscultation, no distress Abdomen: non-tender, soft, no distention, no gua rding, no hernia, no mass/ organomegaly, no rebound Rectal: not indicated Extremities: Extremities: moves all, no edema 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, 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 Skin: dry, intact Psychiatry: normal affect, n ormal judgement/insight, normal mood, not homicidal, not suicidal, no hallucinations Results Findings/Data: Laboratory Tests 06/22/22 0600: [Embedded Image Not Available] 06/21/22 2330: [Embedded Image Not Available] Laboratory Tests 06/22 06/22 06/22 06/22 06/22 1948 1540 1141 0751 0600 Chemistry POC Glucose (70 - 110 MG/DL) 254 H 244 H 223 H 156 H Hemoglobin A1c (4.8 - 6.0 %A1C) 7.0 H 06/22 06/21 0600 2330 Chemistry Sodium (134 - 147 mEq/L) 144 Potassium (3.4 - 5.0 mEq/L) 3.9 Chloride (100 - 108 mEq/L) 107 Carbon Dioxide (21 - 33 mEq/l) 24 Anion Gap (0 - 20) 17 BUN (7 - 18 mg/dL) 12 Creatinine (0.6 - 1.3 mg/dL) 1.1 Glomerular Filtr Rate (80 - 90) 66.6 L Glucose (70 - 110 mg/dL) 160 H Calcium (8.0 - 10.5 mg/dL) 9.6 Magnesium (1.80 - 2.40 mg/dL) 2.03 Troponin I High Sens (0 - 54 ng/L) 6 TSH (0.42 - 5.47 IU/mL) 1.06 Laboratory Tests 06/22 06/21 0600 2330 Hematology WBC (4.5 - 11.0 x10 3/uL) 11.4 H RBC (4.00 - 5.60 x10 6/uL) 4.36 Hgb (12.5 - 16.9 g/dL) 12.6 12.1 L Hct (37.5 - 50.7 %) 38.1 37.0 L MCV (81.0 - 99.0 fL) 87.4 MCH (27.0 - 33.0 pg) 28.9 MCHC (33.0 - 37.0 g/dL) 33.1 RDW (11.5 - 14.5 %) 15.8 H Plt Count (150 - 400 x10 3/uL) 241 MPV (7.0 - 9.0 fL) 10.4 H Diagnosis, Assessment Plan Free Text DxA P Notes Free text DxA P notes: Assessment: 66-year-old male with past medical history of hy pertension, diabetes mellitus type 2, dyslipidemia, presented to the emergency room with a complaint of dysphagia, swelling and pain to the throat that started about 2 weeks ago and worsened in the last 3 days.Ago. Patient reports low-grade fever. Patient denies shortness of breath, headache, nausea, vo miting, chest pain, or other associated symptoms.Admissio n vital signs blood pressure 153 over 65, pulse 85, respiration 18, temperature 36.4, O2 sat 96% on room air. Abnormal labs WBC 12.2, potassium 3.1, glucose [address] MAXIFAC W/CONTRAST reveals: 1. Asymmetric enlargement of the right palatine tonsil, with a right peritonsillar fluid collection measuring 1 .5 x 0.9 x 1.0 cm. Moderate edema of the right lateral pharyngeal w all and true vocal folds are also noted. 1. Dysphagia secondary to peritonsillar abscess 2. Diabetes mellitus type 2 3. Hypertension 4. Dyslipidemia 5. Morbid obesity June 22, 2022: Patient reports he is feeling slightly better He is able to swallow He tolerated liquid diet Diet was advanced to soft diet He was seen and evaluated by ENT No surgical intervention at this time Plan of care: Continue with Unasyn Decadron Consultants eval noted Pain control IV morphine IV fluids Sliding scale insulin and add Lantus Antihypertensives Statin Keep on telemetry Daily labs Daily weight Monitor vital signs closely Neb treatment Continues current medications see above Monitor vital sign closely Strict I's and O's Plan of care discussed with the patient, patient's spouse, patient's nurse, and Dr. Underwood. Electronically Signed by Junie Yu MEDICINE ASSISTANT on 0 06/23/22 at 2124 Electronically Signed by Jae Jaffe MD o n 07/24/22 at 0838 RPT #:[id number] END OF REPORT 2022-06-22 20:56:00-00:00 [facility] ([facility]) Infectious Dis. Progress Note REPORT#:[id number] REPORT STATUS: Signed DATE:06/22/22 TIME: 2055 PATIENT: SONYA MINAYA UNIT #: [id number] ROOM/BED: [place] [address] : 53 AGE: 66 SEX: M ATTEND: Jae Jaffe MD [facility] AUTHOR: Mamadou Piedra MD * ALL edits or amendments must be made on the el [employer]/computer document * Subjective Comments: Patient examined, chart reviewed, events of last 24 hours noted. See full dictated note. Electronically Signed by Mamadou Piedra MD on at 2100 RPT #:[id number] END OF REPORT 2022-06-22 20:43:00-00:00 [facility] ([facility]) Cardiology Consultation REPORT#:[id number] REPORT STATUS: Signed DATE:06/22/22 TIME: 2042 PATIENT: SONYA MINAYA UNIT #: [id number] ROOM/BED: [place] [address] : 53 AGE: 66 SEX: M ATTEND: Jae Jaffe MD ADM AUTHOR: Ian Coronel MD * ALL edits or amendments must be made on the [employer]/computer document * History - Adult longitudinal Allergies: Coded Allergies: aspirin (UNKNOWN 06/21/22) Diagnosis, Assessment Plan Free Text DxA P Notes Free Text DxA P Notes: CARDIOLOGY CONSULT DICTATED Electronically Signed by Ian Coronel MD on at 2042 RPT #:[id number] END OF REPORT 2022-06-22 13:28:00-00:00 [id number] [place] [address] PATIENT NAME: SONYA MINAYA ADMIT DATE: 2 ACCOUNT NO: [id number] ROOM NO: [facility] AGE: 66 REPORT TYPE: CONSULTATION REPORT SEX: M ADMITTING PHYSICIAN:Jae Jaffe MD ATTENDING PHYSICIAN:Jae Jaffe MD CONSULTATION DATE: 06/22/2022 CARDIOLOGY CONSULTATION REQUESTING PHYSICIAN: Jae Worthington MD. REASON FOR CONSULTATION: History of bypass surge ry and shortness of breath. HISTORY OF PRESENT ILLNESS: Mr. Minaya is a 66-year-old pleasant gentleman with a history of coronary artery bypass surgery, his tory of hypertension, hypercholesterolemia, non-in sulin dependent diabetes mellitus, sleep apnea, was consulted for shortness of b reath. The patient was admitted with worsening pain in the throat as well as odynophagia and dysphag ia. He was found to have a possible abscess in the neck and was brought to the hospital because of worsening symptoms. PAST MEDICAL HISTORY: Otherwise as above. SOCIAL HISTORY: He is a nonsmoker at present. FAMILY HISTORY: Negative for premature coronary artery disease. MEDICATIONS: As charted. PHYSICAL EXAMINATION: VITAL SIGNS: Blood pressure is 121/81, heart rat e of 78 beats per minute and regular, respiratory rate 18, temperature 98.5. HEENT: There is no jugular venous distention. CHEST: Decreased breath sounds in all lung field s. HEART: Apical impulse not palpable. S1, S2 soft and regular. ABDOMEN: Moderate obesity. EXTREMITIES: 1+ edema. DIAGNOSTIC DATA: EKG shows normal sinus with non specific ST changes. IMPRESSION: 1. Abscess of the neck, as per ENT doctor. 2. Status post coronary artery bypass bahena rgery: Clinically stable with no chest pain, no shortness of breath. 3. Possible preoperative evaluation: Would requi re echocardiogram before we proceed with surgery. 4. Morbid obesity. PATIENT NAME: SONYA MINAYA 4053 5. Hypercholesterolemia, on medication. RECOMMENDATIONS: 1. If echo is normal, then okay to proceed with surgery. 2. Agree with ENT evaluation for possible mass. 3. Agree with current medication. 4. We will follow up after above. Dictated By: Ian Coronel MD Date Dictated: 06/22/2022 13:28:50 Date Transcribed: 06/22/2022 16:23:12 VIANNEY/SULTANA Receipt ID: [id number] Authenticated by Ian Coronel MD On 06/22/2022 0 8:41:57 PM Electronically Signed by Ian Coronel MD on 0 06/22/22 at 0841 PATIENT NAME: SONYA MINAYA 4053 2022-06-22 12:42:00-00:00 [id number] [place] [address] PATIENT NAME: SONYA MINAYA ADMIT DATE: 2 ACCOUNT NO: [id number] ROOM NO: G.C135 AGE: 66 REPORT TYPE: CONSULTATION REPORT SEX: M ADMITTING PHYSICIAN:Jae Jaffe MD ATTENDING PHYSICIAN:Jae Jaffe MD CONSULTATION DATE: 06/22/2022 ENT CONSULTATION NOTE HISTORY OF PRESENT ILLNESS: The patient with 2-d ay history of progressive right-sided throat pain and discomfort with low- grade fever, unresponsive to some antibiotics the patient has been taking fro [facility]. He showed on a CT scan a 1.5 cm right peritons illar abscess. He has received some IV antibiotics, ampicillin, sulbactam, and some steroids, which have greatly improved his symptoms to the point that he is swallowing with out difficulty and is 100% better just with a couple of IV doses of the ant ibiotics, so I think on exam, there is some peritonsillar swelling on the righ t side. Neck is unremarkable. Ears are clear. Nose is clear. It is a small per itonsillar abscess, seems to be responding to antibiotics. I do not think we need to do an incision and drainage at this point. I would like to recheck him in 24 hours and decide whether we need to do that or whether we just ne ed to treat him with some outpatient p.o. clindamycin and maybe a Medrol Dosepak. He will follow up in 24 hours. Dictated By: Elijah Crawford MD Date Dictated: 06/22/2022 12:42:28 Date Transcribed: 06/22/2022 15:16:03 CLS/PRA/PRE Receipt ID: [id number] Authenticated by Elijah Crawford MD On 12:03:36 PM Electronically Signed by Elijah Crawford MD on at 1203 PATIENT NAME: SONYA MINAYA 4053 2022-06-22 00:33:00-00:00 [id number] [address] PATIENT NAME: SONYA MINAYA ADMIT DATE: 2 ACCOUNT NO: [id number] ROOM NO: G.C135 AGE: 66 REPORT TYPE: CONSULTATION REPORT SEX: M ADMITTING PHYSICIAN:Jae Jaffe MD ATTENDING PHYSICIAN:Jae Jaffe MD CONSULTATION DATE: 06/21/2022 INFECTIOUS DISEASE CONSULTATION The patient examined, chart reviewed, old record s reviewed, and full consult dictated. Thank you, Dr. Underwood, for asking me to evaluate Mr. Sonya Minaya. HISTORY OF PRESENT ILLNESS: Mr. Minaya Is a 66-year-old pleasant male with past medical history of hypertension, hyperlipidemia, non-insulin dependent diabetes mellitus, history of coronary artery di sease status post coronary artery bypass grafting, who was admitted through the Emergency Room with worsening pain in his throat as well as odynophagia and dysphagia. The patient states that he had developed bilateral sore thro at about 2 months ago and it continued to fluctuate. The patient received a c ourse of oral antibiotics including Z-BIB, which showed improvement in his sore throat; however, after some time he started to have the symptoms again and this time he took some antibiotics, which his has brought from [place], but his condition continued to deteriorate and he had very slight improvemen t with that antibiotic. The patient now started to have increasing pain for last about 1 week, continued to have worsening of the sore throat and fo r the last about 2 days, he had mainly increased swelling on the right side of his thro at and had marked odynophagia and difficulty in swallowing due to that. The justino miranda was brought to the emergency room and he was found to have leukocytosis. He also had a fever last night. He did not check the actual temperature, but because of his worsening throat pain he had a CT of soft tissue of the ri ck done that showed enlarged right tonsil as well as a right-sided pe ritonsillar fluid collection is likely suggesting abscess. The patient otherwise remain s hemodynamically stable. He was given a dose of ceftriaxone IV and also give n a dose of Zosyn IV. Infectious disease consultation is reque sted for evaluation of the patient for right-sided peritonsillar abscess and for advise regarding further antibiotic treatment as necessary. REVIEW OF SYSTEMS: The patient denies any headac he, dizziness or blurring of vision. Continues to have pain in the right thro at and angle of the jaw area bilaterally, but more so on the right side. He c ontinues to have odynophagia and dysphagia. He states elisha t he has not eaten any solid food and only drinking liquids and still has diffic ulty in even drinking liquids due to increased pain. Denies any chest pain, cough, expectoration, or shortness of breath. Denies any nausea, vomiting, or diarrhea. Denies any ab dominal pain. Denies any dysuria, hematuria, frequency or urgency. Denies any joint pains. PATIENT NAME: SONYA MINAYA 4053 PAST MEDICAL HISTORY: His [facility] medical history is significant for hypertension, noninsulin-dependent diabetes mellitus, hyperlip idemia, history of coronary artery disease, morbid obesity, and chronically on anticoagulation. PAST SURGICAL HISTORY: Significant for coronary artery bypass grafting on 12/23/2020 at [facility]. ALLERGIES: THE PATIENT HAS ALLERGY TO ASPIRIN, W HICH CAUSES HIM TO HAVE ANAPHYLAXIS. FAMILY HISTORY: Noncontributory. SOCIAL AND PERSONAL HISTORY: The patient is liat ied and lives with his . He had smoked in the past for 10 years, but quit smoking over 10 years ago. No history of IV drug use or substance abuse. Occas ional alcohol use positive. VACCINATION HISTORY: The patient has received CO VID-19 Moderna vaccine three doses including a booster dose. MEDICATIONS: His current medications inc lude dexamethasone 6 mg IV q.6 hourly, ceftriaxone IV one dose was given in the emergency room, Zosyn IV, one dose was given in the emergency room, Tylenol p.r.n., glu cagon p.r.n. hydrocodone bitartrate p.r.n., morphine sulfate p.r.n., and ondansetron p.r.n. PHYSICAL EXAMINATION: GENERAL: The patient is resting in chair, fully conscious and alert, does not appear to be in any acute distress at the presen t time, does not appear to be toxic, and does not appear to be in any acute di stress. VITAL SIGNS: Temperature maximum since admission is 97.6 degrees Fahrenheit; however, the patient states that he had feverish feeling last night, blood pressure is 136/85, respirat ions 18 per minute, and pulse is 87 per minute. The patient's weight is around 131 kg. HEENT: Head is atraumatic and normocephalic. Pup ils are equal and reacting to light bilaterally. Extraocular movements are intact. Oropharyngeal examination shows erythema involving the tonsillar area bila terally. The patient has significant enlargement of the right tonsil with marked swelling of the right peritonsillar region, which is extending to the palate on the right side as well. No purulence noted at the present time. NECK: The patient's neck is otherwise supple. JV D is absent. No carotid bruit, thyromegaly, or cervical lymphadenopathy. The patient has a tender swelling on both upper neck, more so on the righ t side than left. LUNGS: There is fair air entry bilaterally. HEART: S1, S2 audible. No murmur appreciated. ABDOMEN: Soft and bulging nontender, no hepatosp lenomegaly. Bowel sounds are normoactive. EXTREMITIES: Calves are soft. No calf tenderness . No significant edema. LABORATORY DATA AND DIAGNOSTIC STUDIES: WBC on admission is around 12,000 with hemoglobin of 13, hematocrit of 41, and platelet count is 243. Automated differential show 81% neutrophils, 11% lymphocyt es, and 8% monocytes. Serum sodium is 140, potassium 3.1 , chloride 102, bicarbonate 26, glucose 135, BUN 14, creatinine 1.2, estimated GFR is 60.2, and calci um is 9.7. Group A strep screening is negative. High-sensitivity troponin I is 6. CT of maxillofacial area done in the emergency room shows asymmetric enlargement of the right PATIENT NAME: SONYA MINAYA 4053 palatine tonsil with right p eritonsillar fluid collection measuring 1.5 x 0.9 x 1 cm, moderate edema of the right latera l pharyngeal wall and true vocal folds are also seen in this age gr oup an underlying mass would be difficult to exclude and a follow up to resolution is recomme nded. ENT consultation may be helpful. Mildly enlarged, likely reactive jugular chain l ymph nodes. IMPRESSION: The patient with multiple comorbidit ies including a prior history of a coronary artery bypass graftng and history of non-insulin dependent diabetes mellitus, was admitted through the Emergency Room with worsening pain and swelling on the right tonsillar region and s ignificant dysphagia and odynophagia. The patient's clinical exam ination and imaging studies have shown evidence of a right-sided tonsillar enlargement and a peritonsillar fluid collection, raising strong s uspicion for tonsillitis. The patient initially had this episode about 2 months ago and at t hat time azithromycin course had shown improvement in his condition ; however, he has had recurrent throat pain, and for the last few days, it has go tten to a point where he is not able to swallow and he was found to have right peritonsillar abscess . The etiology usually is gram-positive organisms including Streptococcus anginosus. Group A strep, and Staph aureus with question of methicillin-resist ant staphylococcus aureus as well. However, respiratory anaerobes including P revotella, Fusobacterium, and Veillonella species should also be considered in the differential as well. Since the patient clinically appears hemodynamic ally stable we will for now, keep him on broad-spectrum I V antibiotics directed against mainly gram positives as well as including anaerobes found in the oropharyngeal cavity while further workup is in progress. SUGGEST: 1. Start Unasyn 3 grams IV piggyback q.6. hourly . 2. Chlorhexidine mouthwash q. 12 hourly. 3. Heating pad to the right angle of jaw area. 4. Agree with ENT evaluation. 5. Nasal swab for methicillin-resistant staphylo coccus aureus screen. 6. Further recommendations to follow depending o n the clinical course of the patient. Thank you again for inviting me to participate i n the care of your patient. I will continue to follow along with you. The case was discussed with the patient's spouse at the bedside and with Junie Yu NP. Dictated By: Mamadou Piedra MD Date Dictated: 06/22/2022 00:33:45 Date Transcribed: 06/22/2022 01:36:39 BORDEN/SVR Receipt ID: [id number] Authenticated and Edited by Mamadou Piedra MD On 07/09/22 3:25:26 AM Electronically Signed by Mamadou Piedra MD on at 0328 PATIENT NAME: SONYA MINAYA 4053 2022-06-21 23:47:00-00:00 [facility] ([facility]) Infect Disease Consult Note REPORT#:[id number] REPORT STATUS: Signed DATE:06/21/22 TIME: 2346 PATIENT: SONYA MINAYA UNIT #: [id number] ROOM/BED: [facility]-1 : 53 AGE: 66 SEX: M ATTEND: Jae Jaffe MD ADM AUTHOR: Mamadou Piedra MD * ALL edits or amendments must be made on the [employer] document * History of Present Illness HPI: Thank you for the consultation. Patient examined , chart reviewed, old record reviewed. Full dictated consultation report to eugene muñiz. History - Adult longitudinal Allergies: Coded Allergies: aspirin (UNKNOWN 06/21/22) Electronically Signed by Mamadou Piedra MD on at 2347 RPT #:[id number] END OF REPORT 2022-06-21 20:58:00-00:00 [facility] ([facility] History Physical - Adult REPORT#:[id number] REPORT STATUS: Signed DATE:06/21/22 TIME: 2057 PATIENT: SONYA MINAYA UNIT #: [id number] ROOM/BED: [place] [address] : 53 AGE: 66 SEX: M ATTEND: Jae Jaffe MD ADM AUTHOR: Junie Yu MEDICINE ASSISTANT * ALL edits or amendments must be made on the [employer] document * Junie Yu 06/21/222057: History of Present Illness HPI HPI: 66-year-old male with past medical history of hy pertension, diabetes mellitus type 2, dyslipidemia, presented to the emergency room with a complaint of dysphagia, swelling and pain to the throat that started about 2 weeks ago and worsened in the last 3 days.Ago. Patient reports low-grade fever. Patient denies shortness of breath, headache, nausea, vo miting, chest pain, or other associated symptoms.Admissio n vital signs blood pressure 153 over 65, pulse 85, respiration 18, temperature 36.4, O2 sat 96% on room air. Abnormal labs WBC 12.2, potassium 3.1, glucose [address] MAXIFAC W/CONTRAST reveals: 1. Asymmetric enlargement of the right palatine tonsil, with a right peritonsillar fluid collection measuring 1 .5 x 0.9 x 1.0 cm. Moderate edema of the right lateral pharyngeal w all and true vocal folds are also noted. History Smoking status for patients 13 years old or olde r: Unknown,if ever smoked Medication/Allergy-Vaccine Hx Allergies: Coded Allergies: aspirin (UNKNOWN 06/21/22) Review of Systems Constitutional: Denies: chills, fever. ENT: Reports: sore throat, throat pain. Denies: earac he, nasal congestion. Respiratory: Denies: hemoptysis, parox no cturnal dyspnea, pleurisy, pleuritic pain, pneumonia , SOB, wheezing. Cardiovascular: Denies: chest pain, palpitations. GI: Reports: dysphagia. Denies: abdominal pain, naus ea, vomiting. : Denies: flank pain, frequency, hematuria. Musculoskeletal: Arthritis: Reports: left lower, right lower. Denies: left upper, right upper. Neuro: Denies: change in LOC, confusion, dizziness, foc al weakness, gait problem, headache, lightheaded, numbness, seizure, slurre d speech, spinning sensation, syncope, unable to speak, vision change. Psych: Denies: agitation, anxiety, auditory hallucinati on, change in mental status, confusion, delusional, depre ssion, homicidal ideation, hostile, insomnia, stress , suicidal ideation, visual hallucination. Physical Exam VS/I O Vital Signs: Date Time Temp Pulse Resp B/P B/P Pulse O2 O2 F low FiO2 Mean Ox Delivery Rate 06/21 1629 36.4 85 18 153/65 94 96 Room air PATIENT WEIGHT: Weight (lb): Weight (oz): Weight (kg): 131.818 General appearance: alert, awake Head/Eyes: atraumatic, clear cornea, EOMI, normo cephalic, normal conjunctiva/ sclera, normal eyelids/periorb, PERRLA ENT: tonsillar swelling Neck: tenderness, no JVD, normal thyroid, supple /no meningismus Breast: symmetrical, no mass Cardiovascular: normal capillary refill, regular rate rhythm Respiratory: clear to auscultation, no distress, no tenderness Abdomen/GI: active bowel sounds, soft, n on-tender, no guarding, no rebound, no distention, no mass/organome donnie, no pulsatile mass, no hernia, normal abdominal aorta Abdomen quadrants: LLQ normal bowel sounds, LUQ normal irish l sounds, RLQ normal bowel sounds, RUQ normal bowel sounds Extremities: moves all, no edema-all extremities , normal capillary refill, normal range of motion, normal sensory, normal m otor function 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, oriented X 3 Skin: dry, intact, no gross abnormalities Lymphatic: axilla normal, inguinal normal, no ly mphadenopathy, neck normal Psychiatry: no hallucinations, normal affect, no rmal judgment/insight, normal mood, not homicidal, not suicidal Results Findings/Data: Laboratory Tests: 06/21 06/21 1747 1737 Chemistry Sodium (134 - 147 mEq/L) 140 Potassium (3.4 - 5.0 mEq/L) 3.1 L Chloride (100 - 108 mEq/L) 102 Carbon Dioxide (21 - 33 mEq/l) 26 Anion Gap (0 - 20) 15 BUN (7 - 18 mg/dL) 14 Creatinine (0.6 - 1.3 mg/dL) 1.2 Glomerular Filtr Rate (80 - 90) 60.2 L Glucose (70 - 110 mg/dL) 135 H POC Glucose (70 - 110 MG/DL) 127 H Calcium (8.0 - 10.5 mg/dL) 9.7 Hematology WBC (4.5 - 11.0 x10 3/uL) 12.2 H RBC (4.00 - 5.60 x10 6/uL) 4.65 Hgb (12.5 - 16.9 g/dL) 13.2 Hct (37.5 - 50.7 %) 40.6 MCV (81.0 - 99.0 fL) 87.3 MCH (27.0 - 33.0 pg) 28.4 MCHC (33.0 - 37.0 g/dL) 32.5 L RDW (11.5 - 14.5 %) 16.1 H Plt Count (150 - 400 x10 3/uL) 243 MPV (7.0 - 9.0 fL) 10.7 H Neut % (Auto) (56.0 - 77.0 %) 80.9 H Lymph % (Auto) (14.0 - 32.0 %) 10.6 L [place] % (Auto) (4.8 - 9.0 %) 7.6 Eos % (Auto) (0.3 - 3.7 %) 0.1 L Baso % (Auto) (0.0 - 2.0 %) 0.3 Neut # (Auto) (2.0 - 7.6 x10 3/uL) 9.90 H Lymph # (Auto) (1.0 - 3.8 x10 3/uL) 1.30 [place] # (Auto) (0.1 - 0.8 x10 3/uL) 0.93 H Eos # (Auto) (0.0 - 0.2 x10 3/uL) 0.01 Baso # (Auto) (0.0 - 0.2 x10 3/uL) 0.04 Abs Immat Gran (auto) (0.00 - 0.03 x10 3/uL) 0. 06 H Add Manual Diff NO Immature Gran % (0.0 - 2.0 %) 0.5 Nucleated RBC % (0 - 0 %) 0.0 Nucleated RBCs # (Man) (0.0 - 0.1 x10 3/uL) 0.0 0 Serology Group A Strep Screen (Negative) Negative Radiology data: Recent Impressions: CAT SCAN - CT MAXIFAC W/CONTRAST 06/21 1857 Report Impression - Status: SIGNED Entered: 06/21/20221924 IMPRESSION: 1. Asymmetric enlargement of the right palatine tonsil, with a right peritonsillar fluid collection measuring 1 .5 x 0.9 x 1.0 cm. Moderate edema of the right lateral pharyngeal w all and true vocal folds are also noted. 2. In this age group, an underlying mass would b e difficult to exclude and follow-up to resolution is recommend ed. ENT consultation may be helpful. 3. Mildly enlarged, likely reactive jugular aurelia n lymph nodes. Impression By: [email or web address] - Jony Kellogg M.D. Diagnosis, Assessment Plan Free Text DxA P Notes Free Text DxA P Notes: 66-year-old male with past medical history of hy pertension, diabetes mellitus type 2, dyslipidemia, presented to the emergency room with a complaint of dysphagia, swelling and pain to the throat that started about 2 weeks ago and worsened in the last 3 days.Ago. Patient reports low-grade fever. Patient denies shortness of breath, headache, nausea, vo miting, chest pain, or other associated symptoms.Admissio n vital signs blood pressure 153 over 65, pulse 85, respiration 18, temperature 36.4, O2 sat 96% on room air. Abnormal labs WBC 12.2, potassium 3.1, glucose [address] MAXIFAC W/CONTRAST reveals: 1. Asymmetric enlargement of the right palatine tonsil, with a right peritonsillar fluid collection measuring 1 .5 x 0.9 x 1.0 cm. Moderate edema of the right lateral pharyngeal w all and true vocal folds are also noted. 1. Dysphagia secondary to peritonsillar abscess 2. Diabetes mellitus type 2 3. Hypertension 4. Dyslipidemia 5. Morbid obesity Plan of care: Admit patient to the further evaluation and messi tment Start patient on IV antibiotics Decadron IV antibiotics as per ID Unasyn Patient was given ceftriaxone and Zosyn ENT consultation Pain control IV morphine IV fluids Sliding scale insulin Antihypertensives Statin Keep on telemetry Daily labs Daily weight Monitor vital signs closely Neb treatment Reconcile home medications Monitor vital sign closely Strict I's and O's Plan of care discussed with the patient, patient's spouse, patient's nurse, and Dr. Underwood. Jae Jaffe I 06/26/22 1635: Attestations Physician Attestation Agree w/findings plan: I Agree with the findings and plan as documented by DOROTEO Yu. Plan of care coordinated with DOROTEO Yu. Pertinent labs, Imaging, and behavioral consultant evaluations reviewed. Electronically Signed by Junie Yu NP on 0 06/22/22 at 2310 Electronically Signed by Jae Jaffe MD o n 06/26/22 at 1654 RPT #:[id number] END OF REPORT 2022-06-21 15:48:00-00:00 [facility] EMERGENCY PROVIDER REPORT REPORT#:[id number] REPORT STATUS: Signed DATE:06/21/22 TIME: 154 PATIENT: SONYA MINAYA UNIT #: [id number] ROOM/BED: [place] [address] AGE: 66 SEX: M PCP PHYS: Rose Davies Physi c SERVICE AUTHOR: Murphy Michelle MEDICINE ASSISTANT * ALL edits or amendments must be made on the [employer]/computer document * Murphy Michelle 06/21/22 1548: HPI-Sore Throat General Confirmed Patient Yes Initial Greet Date/Time 06/21/22 1548 Provider in Triage Greet Note I have greeted and performed a focused rapid initial assessment of this patient. A comprehensive ED assessment and evaluation of the patient, analysis of all test results, and completion of the medical deci david-making process will be conducted by additional ED providers. MSE Not Complete The medical screening exam i s not complete. Further evaluation and/or treatment is required. The patient will be re-directed to the emergency department. Presentation Chief Complaint Sore throat Free Text HPI Notes Free Text HPI Notes Patient is a 66-year-old mal e with previous cardiac history, diabetes, HTN, HLD presents to ED with complaint of dysphag ia, swelling to right throat and upper palate for greater than 2 weeks, became much wor se approximately 3 days ago. Did take course of unknown antibiotic approximat amira 2 to 3 weeks ago without efficacy. Denies fever, headache, SOB, N VD, CP, abdominal pain, SOB, change in bladder or bowel habits. Patient is allergic to aspirin. Home meds include Xarelto, metoprolol, clopidogr el, pantoprazole, loratadine, atorvastatin, pioglitazone, amiodarone, Trulicity, Jardiance, NovoLog, Basaglar, paroxetine, bupropion. PCP is Rose Anderson Review of Systems ROS Statements All systems rev neg except as marked. Past Medical History - Adult Stated Complaint SWOLLEN SPOT TO THROAT/POSS ABS CESS Allergies Coded Allergies: aspirin (UNKNOWN 06/21/22) Review of Nursing Notes Rev avail, and agree Physical Exam Free Text PE Notes Free Text PE Notes Patient is AAOx3, ambulatory with steady gait, N AD noted. Lungs are CTA B, abdomen soft and nontender. There is an area of visible swelling to the right soft palate, tonsils are difficult to visualize due to obstruction of tongue. There is no current airway compromise. Respirati ons even and unlabored. Interpretation Diagnostics Lab Results Interpretation Results Laboratory Tests 06/21/22 1737: [Embedded Image Not Available] Laboratory Tests: 06/21 06/21 1747 1737 Chemistry Sodium (134 - 147 mEq/L) 140 Potassium (3.4 - 5.0 mEq/L) 3.1 L Chloride (100 - 108 mEq/L) 102 Carbon Dioxide (21 - 33 mEq/l) 26 Anion Gap (0 - 20) 15 BUN (7 - 18 mg/dL) 14 Creatinine (0.6 - 1.3 mg/dL) 1.2 Glomerular Filtr Rate (80 - 90) 60.2 L Glucose (70 - 110 mg/dL) 135 H POC Glucose (70 - 110 MG/DL) 127 H Calcium (8.0 - 10.5 mg/dL) 9.7 Hematology WBC (4.5 - 11.0 x10 3/uL) 12.2 H RBC (4.00 - 5.60 x10 6/uL) 4.65 Hgb (12.5 - 16.9 g/dL) 13.2 Hct (37.5 - 50.7 %) 40.6 MCV (81.0 - 99.0 fL) 87.3 MCH (27.0 - 33.0 pg) 28.4 MCHC (33.0 - 37.0 g/dL) 32.5 L RDW (11.5 - 14.5 %) 16.1 H Plt Count (150 - 400 x10 3/uL) 243 MPV (7.0 - 9.0 fL) 10.7 H Neut % (Auto) (56.0 - 77.0 %) 80.9 H Lymph % (Auto) (14.0 - 32.0 %) 10.6 L [place] % (Auto) (4.8 - 9.0 %) 7.6 Eos % (Auto) (0.3 - 3.7 %) 0.1 L Baso % (Auto) (0.0 - 2.0 %) 0.3 Neut # (Auto) (2.0 - 7.6 x10 3/uL) 9.90 H Lymph # (Auto) (1.0 - 3.8 x10 3/uL) 1.30 [place] # (Auto) (0.1 - 0.8 x10 3/uL) 0.93 H Eos # (Auto) (0.0 - 0.2 x10 3/uL) 0.01 Baso # (Auto) (0.0 - 0.2 x10 3/uL) 0.04 Abs Immat Gran (auto) (0.00 - 0.03 x10 3/uL) 0. 06 H Add Manual Diff NO Immature Gran % (0.0 - 2.0 %) 0.5 Nucleated RBC % (0 - 0 %) 0.0 Nucleated RBCs # (Man) (0.0 - 0.1 x10 3/uL) 0.0 0 Serology Group A Strep Screen (Negative) Negative Microbiology: Date/Time Procedure - Status Source Growth 06/21 1747 Streptococcus Culture - COMP THROAT Recent Impressions: CAT SCAN - CT MAXIFAC W/CONTRAST 06/21 1857 Report Impression - Status: SIGNED Entered: 06/21/20221924 IMPRESSION: 1. Asymmetric enlargement of the right palatine tonsil, with a right peritonsillar fluid collection measuring 1 .5 x 0.9 x 1.0 cm. Moderate edema of the right lateral pharyngeal w all and true vocal folds are also noted. 2. In this age group, an underlying mass would b e difficult to exclude and follow-up to resolution is recommend ed. ENT consultation may be helpful. 3. Mildly enlarged, likely reactive jugular aurelia n lymph nodes. Impression By: [email or web address] - Jony Kellogg M.D. Patient Discharge Departure Vital Signs/Condition Vital Signs First Documented: Result Date Time Pulse Ox 96 06/21 1629 B/P 153/65 06/21 1629 B/P Mean 94 06/21 1629 O2 Delivery Room air 06/21 1629 Temp 36.4 06/21 1629 Pulse 85 06/21 1629 Resp 18 06/21 1629 Last Documented: Result Date Time Pulse Ox 96 06/21 1629 B/P 153/65 06/21 1629 B/P Mean 94 06/21 1629 O2 Delivery Room air 06/21 1629 Temp 36.4 06/21 1629 Pulse 85 06/21 1629 Resp 18 06/21 1629 All vital signs available at the time of this en try have been reviewed. Amy Yuan 06/21/221951: HPI-Sore Throat General Confirmed Patient Yes Presentation Chief Complaint Sore throat, Neck pain, Pain wit h swallowing Hx Obtained From Patient, Spouse Onset Occurred Gradual, Days ago Symptom Duration Since onset Progression since Onset Gradually worsening Context of Onset No sick contacts Past Medical History - Adult Home Medications Reported Medications LOSARTAN/HCTZ (HYZAAR 100/25 MG) 1 TAB PO DAILY METOPROLOL SUCC XL (TOPROL XL) 100 MG PO DAILY RIVAROXABAN (XARELTO) CLOPIDOGREL (PLAVIX) 75 MG PO DAILY PANTOPRAZOLE DR (PROTONIX) 40 MG PO DAILY LORATADINE (CLARITIN) 10 MG PO DAILY PRN PRN ALL ERGIES ATORVASTATIN (LIPITOR) 40 MG PO DAILY PIOGLITAZONE (ACTOS) 30 MG PO DAILY AMIODARONE (CORDARONE) 100 MG PO DAILY DULAGLUTIDE (TRULICITY) 1.5 MG SUBQ Q7D EMPAGLIFLOZIN (JARDIANCE) 25 MG PO DAILY INSULIN ASPART (NovoLOG FLEXPEN (15mL)) 0 UNITS SUBQ TID PRN PRN HYPERGLYCEMIA PER PROTOCOL INSULIN GLARGINE (BASAGLAR KWIKPEN U-100 (15mL)) 0 UNITS SUBQ DAILY PARoxetine CR (PAXIL CR) 37.5 MG PO DAILY buPROPion HCL XL (WELLBUTRIN XL) 150 MG PO DAILY Physical Exam Vital Signs Vital Signs First Documented: Result Date Time Pulse Ox 96 06/21 1629 B/P 153/65 06/21 1629 B/P Mean 94 06/21 1629 O2 Delivery Room air 06/21 1629 Temp 36.4 06/21 1629 Pulse 85 06/21 1629 Resp 18 06/21 162 Last Documented: Result Date Time Pulse Ox 96 06/21 1629 B/P 153/65 06/21 1629 B/P Mean 94 06/21 1629 O2 Delivery Room air 06/21 1629 Temp 36.4 06/21 1629 Pulse 85 06/21 1629 Resp 06/21 1629 Review of Vital Signs Reviewed Free Text PE Notes Free Text PE Notes General/Const: General/Const Awake, Alert, No ac moshe distress, Cooperative Eyes: Eyes PERRL, EOMI, Conjunctiva NL, no damien ng or discharge Ears/Nose/Throat: Ears/Nose/Throat Airway patent , Mucous membranes moist and erythematous; bilateral tons illar enlargement, right greater than left; anterior cervical chain lymphadenopat hy present; narrowing airway noted with enlargement and edema of tonsils MS Neck: Neck Supple, Full r wilberto of motion; cervical lymphadenopathy; tender to palpation Resp/Chest: Respiratory/Chest Breath sounds NL, Breath sounds = bilat, No respiratory distress, No rales, No rhonchi, No w heezing Cardiovascular: Cardiovascular Heart rate NL, Re gular rhythm, Heart sounds NL Abdomen/GI: Abdomen/GI Soft, rounded, no tenderness, No guarding, No rebound, BS normoactive, No distention Skin: Skin Color flushed, No rash, Warm, Dry Neurologic: Neurologic Oriented X3, Speech NL Interpretation Diagnostics Lab Results Interpretation Considerations Reviewed prior records Lab Imaging Statement Laboratory radiographic studies reviewed and con sidered in the medical decision-making. Re-Evaluation MDM Free Text MDM Notes Free Text MDM Notes Delay in disposition due to delay in order completion and lab completion/results processing. Re-Evaluation/Progress Re-Evaluation/Progress Text/Dict Note Patient is sitting and resting quietly. No acute distress at this time. Review of clinical and diagnostic findings at length wi th patient and his spouse. CT findings are consistent with tonsillar edema connor ng with soft tissue inflammation. No visible gifty ar abscess noted, however, consistency of edema and inflammation are suspected with peritonsillar ab scess. No increased work of breathing or tracheal deviation noted on reevalu ation. Will initiate IV antibiotics at this time. Recom mend admission for IV antibiotic and inpatient management. Patient voi wilfredo understanding and agrees with inpatient plan of care. Re-Eval Status Unchanged Eval Following Treatment Condition unchanged Pain Re-Evaluation Pain improved Plan Post Re-Eval Plan admit Tissue Perfusion Reassessment Patient tissue perfusion reassessment completed. ED Course Medication(s) Ordered Medication(s) Ordered: Anti-Infective Agents Sig/Jero Start time Last Medication Dose Route Stop Time Status Admin Ceftriaxone Sodium 1,000 MG X1ED STA 06/21 1949 DC 06/21 Sodium Chloride 10 ML IV 06/21 Central Nervous System Agents Sig/Jero Start time Last Medication Dose Route Stop Time Status Admin Acetaminophen 650 MG Q4H PRN PRN 06/21 2000 AC PO 06/22 185 Hydrocodone Bitart/ 1 TAB Q4H PRN PRN 06/21 200 0 AC Acetaminophen PO 06/22 185 Morphine Sulfate 4 MG Q4H PRN PRN 06/21 2000 DC IV 06/22 185 Diagnostic Agents Sig/Jero Start time Last Medication Dose Route Stop Time Status Admin Iopamidol 100 ML .STK-MED ONE 06/21 1920 DC IV 06/21 1921 192 Electrolytic, Caloric, And Marquez Sig/Jero Start time Last Medication Dose Route Stop Time Status Admin Dextrose/Water 25 ML ASDIR PRN 06/21 2000 CKD IV 06/22 185 Dextrose/Water 50 ML ASDIR PRN 06/21 2000 CKD IV 06/22 185 Gastrointestinal Drugs Sig/Jero Start time Last Medication Dose Route Stop Time Status Admin Ondansetron HCl 4 MG Q6H PRN PRN 06/21 2000 AC IV 06/22 185 Ondansetron HCl 4 MG X1ED STA 06/21 1949 DC IV 06/21 1950 2125 Hormones And Synthetic Substit Sig/Jero Start time Last Medication Dose Route Stop Time Status Admin Glucagon 1 MG ASDIR PRN 06/21 2000 AC IM 06/22 1853 Patient Discharge Departure Clinical Impression Clinical Impression Primary Impression: Tonsillar enlargement Disposition Decision Admit Admit Physician Name Jae Jaffe MD Admit Physician Hospitalist Request Time 1951 Request Date 06/21/22 )( Admission Accepts Yes )( Accepted Time 1951 )( Accepted Date 06/21/22 Call Information will see patient, agrees with eval, agrees with plan, CONFIRMED WITH [employer] MIGUEL Discharge/Care Plan Counseled Regarding Diagnosi s, Lab results, Imaging studies, Need for admission (Auto) Prescriptions Current Visit Scripts CLINDAMYCIN HCL (CLEOCIN) 300 MG PO Q6H 7 Days #28 CAPS Admit Note I have spoken with the patie nt and/or caregivers. I have explained the patient's condition, diagnoses and roosevelt atment plan based on the information available to me at this time. I have answered the patient's and/ or caregiver's questions and addressed any concerns. The patient and/or careg beverly have as good an understanding of the patient 's diagnosis, condition and treatment plan as can be expected at this point. The patient has been stabilized within the capability of the emergency department. The patient wi ll be transported for further care and management or will be moved to an observation or inpatient service. I have communicated with the staff or medical p ractitioner taking over this patient's care. Hold in ED Note I have spoken with the patie nt and/or caregivers. I have explained the patient's condition, diagnoses and roosevelt atment plan based on the information available to me at this time. I have answered the patient's and/ or caregiver's questions and addressed any concerns. The patient and/or careg beverly have as good an understanding of the patient 's diagnosis, condition and treatment plan as can be expected at this point. The patient has been stabilized within the capability of the emergency department. Although the emergency department has completed all appropriate management and is prepared to transp ort the patient to an observation or inpatient service, there are no a vailable beds. Therefore the patient will be placed in "ED Hold" status until such time as a bed becomes available. Jeramie Elmore 06/26/22 1257: Patient Discharge Departure Supervising Physician Note MidLv Saw Pt Alone I have reviewed the PA/MEDICINE ASSISTANT's note and plan of car e. I was available for consultation as needed at al l times during the patient's visit in the emergency department. I agree with the clinical impression , plan and disposition. Electronically Signed by Murphy Michelle NP on 05/26 05/15 at 2204 at 1012 at 1258 RPT #:[id number] END OF REPORT 2022-06-20 17:11:00-00:00 [facility] EMERGENCY PROVIDER REPORT REPORT#:[id number] REPORT STATUS: Signed DATE:06/20/22 TIME: 1711 PATIENT: SONYA MINAYA UNIT #: [id number] ROOM/BED: AGE: 66 SEX: M PCP PHYS: Rose [facility] SERVICE AUTHOR: Mehran Rowe DO * ALL edits or amendments must be made on the [employer]/computer document * HPI-General Illness Free Text HPI Notes Free Text HPI Notes 66M PMHx as below complainin g of pain in his throat that started yesterday after eating to Tylenol. Patient states he went to [facility] today and they did a strep test on him which was negative. They recom mended that they come to the emergency room to get scoped. Patient is able to eat mashed foods and 2 small bananas today. Denies coughing. Patient denies c hest pain, palpitations, or shortness of breath. Denies fevers chills or nig ht sweats. Denies abdominal pain, nausea, or vomiting. Offered repeat of strep test but patient decline d. Informed patient that I would speak to ENT doctor at this time General Initial Greet Date/Time 06/20/22 1650 Presentation Chief Complaint Sore throat Review of Systems ROS Statements All systems rev neg except as marked. Past Medical History - Adult Stated Complaint THROAT SWOLLEN/CAN'T BREATHE GO OD Allergies Uncoded Allergies: ASPIRIN (UNKNOWN 09/27/22) Physical Exam Vital Signs Vital Signs First Documented: Result Date Time Pulse Ox 97 06/20 1735 B/P 130/67 06/20 1735 B/P Mean 88 06/20 1735 O2 Delivery Room air 06/20 1735 Temp 36.5 06/20 1735 Pulse 73 06/20 1735 Resp 16 06/20 173 Last Documented: Result Date Time Pulse Ox 97 06/20 1735 B/P 130/67 06/20 1735 B/P Mean 88 06/20 173 O2 Delivery Room air 06/20 1735 Temp 36.5 06/20 1735 Pulse 73 06/20 173 Resp 06/20 173 Review of Vital Signs Reviewed Re-Evaluation MDM Free Text MDM Notes Additional Text Physical Exam General/Const General/Const Awake, Alert, No acute di stress, Well appearing, Well developed , Well hydrated, Well nourished, Cooperative, No t toxic appearing MS Head Head Atraumatic, Normocephalic Eyes Eyes EOMI MS Neck Neck Full range of motion, No tracheal deviatio n Resp/Chest Respiratory/Chest No respiratory distress Cardiovascular Cardiovascular Heart rate NL Skin Skin Color NL Neurologic Neurologic Oriented X3, Speech NL, No motor def icits, CN II - XII intact, Memory NL, Gait NL Psychiatric Psychiatric Affect NL, Mood NL Throat No erythema, no swelling, no exudates, airway p atent Re-Evaluation/Progress #1 Text/Dict Note Spoke to patient and informed him that the ENT d octor stated that he is not a candidate for getting a scop e of his oropharynx as Tylenol will dissolve on its own. Patient without coughing, nausea, or vomiti ng. Patient tolerating p.o. recommended soft diet and using pill material manager for medications. Patient states that he is in great pain and it makes it difficu lt to swallow. Offered admission for observation but patient declined. AAOX4.VSS. Patient nontoxic and well-appearing Time of Re-Eval 1811 Re-Eval Status Unchanged Consultation Consultation Referral/Consult Name Elijah Crawford MD Acetylene Plant Operator Called [facility] Patient Discharge Departure Vital Signs/Condition Vital Signs First Documented: Result Date Time Pulse Ox 97 06/20 1735 B/P 130/67 06/20 1735 B/P Mean 88 06/20 173 O2 Delivery Room air 06/20 1735 Temp 36.5 06/20 173 Pulse 73 06/20 1735 Resp 16 06/20 1735 Last Documented: Result Date Time Pulse Ox 97 06/20 1735 B/P 130/67 06/20 1735 B/P Mean 88 06/20 173 O2 Delivery Room air 06/20 1735 Temp 36.5 06/20 173 Pulse 73 06/20 1735 Resp 16 06/20 1735 All vital signs available at the time of this en try have been reviewed. Clinical Impression Clinical Impression Primary Impression: Foreign body sensation in th roat Disposition Decision Discharge )( Discharged to Home Yes )( Time 181 )( Date 06/20/22 Discharge/Care Plan Counseled Regarding Diagnosis, Need for follow-u p, When to return to ED Discharge Note I have spoken with the patie nt and/or caregivers. I have explained the patient's condition, diagnoses and roosevelt atment plan based on the information available to me at this time. I have answered the patient's and/ or caregiver's questions and addressed any concerns. The patient and/or careg beverly have as good an understanding of the patient 's diagnosis, condition and treatment plan as can be expected at this point. The vital signs have bee n stable. The patient's condition is stable and appr opriate for discharge from the emergency department. The patient will pursue further outpatient evalu ation with the primary care physician or other designated or consulting phys ician as outlined in the discharge instructions. The patient and/or caregivers are agreeable to this plan of care and follow-up instructions have been exp lained in detail. The patient and/or caregivers have received these instructio ns in written format and have expressed an understanding of the discharge inst ructions. The patient and/or caregivers are aware that any significant change in condition or worsening of symptoms should prompt an immediate return to [facility] or the closest emergency department or a call to 911. Electronically Signed by Mehran Rowe DO on 06/20 at 2045 RPT #:[id number] END OF REPORT 2021-02-02 14:41:00-00:00 [facility] ([facility]) Discharge Summary REPORT#:[id number] REPORT STATUS: Signed DATE:02/02/21 TIME: 1441 PATIENT: SONYA MINAYA UNIT #: [id number] ROOM/BED: 3363-1 : 53 AGE: 65 SEX: M ATTEND: Jae Jaffe MD ADM AUTHOR: Jae Jaffe MD * ALL edits or amendments must be made on the el [employer]/computer document * PCP PCP PCP: PCP: Avel Banerjee MD Discharge to: home General Information Date of admission: Observation Start Date: Date of admission: 12/22/20 Discharge date: 12/29/20 Admission diagnosis: 1. Status post left heart cath revealing multive ssel coronary artery disease 2. Chest pain/dyspnea on exertion 3. Hypertension 4. Diabetes mellitus type 2 5. Dyslipidemia statin 6. Morbid obesity Discharge diagnosis: I25.110 ATHSCL HEART DISEASE OF [place] ART W UNSTABLE ANG PCTRS J95.821 ACUTE POSTPROCEDURAL RESPIRATORY FAILURE Z20.822 CONTACT WITH AND (SUSPECTED) EXPOSURE TO COVID-19 D62 ACUTE POSTHEMORRHAGIC ANEMIA J90 PLEURAL EFFUSION, NOT ELSEWHERE CLASSIFIED Z68.41 BODY MASS INDEX [BMI]40.0-44.9, ADULT I48.0 PAROXYSMAL ATRIAL FIBRILLATION E11.9 TYPE 2 DIABETES MELLITUS WITHOUT COMPLICAT IONS E66.01 MORBID (SEVERE) OBESITY DUE TO EXCESS ARVIN ORIES E78.00 PURE HYPERCHOLESTEROLEMIA, UNSPECIFIED E78.5 HYPERLIPIDEMIA, UNSPECIFIED G47.33 OBSTRUCTIVE SLEEP APNEA (ADULT) (PEDIATRI C) I10 ESSENTIAL (PRIMARY) HYPERTENSION G47.00 INSOMNIA, UNSPECIFIED F41.9 ANXIETY DISORDER, UNSPECIFIED N19 UNSPECIFIED KIDNEY FAILURE Z79.01 MOLDER OFFBEARER (CURRENT) USE OF ANTICOAGULANTS Z79.84 FDC (CURRENT) USE OF ORAL HYPOGLYCE ERMA DRUGS Z87.891 PERSONAL HISTORY OF NICOTINE DEPENDENCE Z88.6 ALLERGY STATUS TO ANALGESIC AGENT Hospital course: 65-year-old male presented for elective left hea rt catheterization. Patient underwent the procedure well but needing coronar y artery bypass graft due to multiple vessel disease. 12/23/2020: Status post CABG x4 The patient was on telemetry, BP control, glycem ic control, pain control, electrolyte control, DVT/GI prophylaxis. The patient was hemodynamically stable and was discharged. Follow-up with PCP. Discharg e medications as per reconciliation list. Med Rec Med Rec Discharge meds: Stop taking the following medications: LOSARTAN/HCTZ (HYZAAR 100/25 MG) 100 MG-25 MG TA B 1 TABLET ORAL DAILY. GEMFIBROZIL (LOPID) 600 MG TAB 600 MILLIGRAM ORAL TWICE DAILY. RIVAROXABAN (XARELTO) 20 MG TAB 20 MILLIGRAM ORAL DAILY. METOPROLOL SUCC XL (TOPROL XL) 100 MG TAB.SA 100 MILLIGRAM ORAL DAILY. amLODIPine (NORVASC) 5 MG TAB 5 MILLIGRAM ORAL DAILY. ESOMEPRAZOLE MAG DR (NexIUM) 20 MG CAP.DR 20 MILLIGRAM ORAL DAILY. CALCIUM/CHOLECALCIFEROL (CALCET 150 MG/100 UNITS ) 200 MG CALCIUM-250 UNIT TAB 1 TABLET ORAL DAILY. Continue taking these medications: EMPAGLIFLOZIN (JARDIANCE) 25 MG TAB 25 MILLIGRAM ORAL DAILY. PARoxetine CR (PAXIL CR) 37.5 MG TAB.SR.24H 37.5 MILLIGRAM ORAL DAILY. [TUMERIC/BIOPERINE] 1 CAPSULE ORAL DAILY. DULAGLUTIDE (TRULICITY) 1.5 MG/0.5 ML PEN.INJCTR 1.5 MILLIGRAM SUBCUTANEOUS EVERY 7 DAYS. PIOGLITAZONE (ACTOS) 30 MG TAB 30 MILLIGRAM ORAL EVENING CHOLECALCIFEROL (VITAMIN D3) (VITAMIN D3) 1,000 UNIT TAB 1,000 UNITS ORAL DAILY. OMEGA-3 FATTY ACIDS (FISH OIL) 1,000 MG CAP 1,000 MILLIGRAM ORAL DAILY. INSULIN REGULAR (HumuLIN R) 100 UNITS/ML VIAL 15 UNITS SUBCUTANEOUS BEFORE MEALS. Start taking the following new medications: LORATADINE (CLARITIN) 10 MG TAB 10 MILLIGRAM ORAL DAILY NEEDED. as needed fo r CONGESTION Days = 30 No Refills LEVALBUTEROL (XOPENEX) 1.25 MG/3 ML SOLUTION 0.63 MILLIGRAM INHALATION RT - EVERY 4 HOURS NEEDED. as needed for WHEEZING / SHORTNESS OF BREATH Days = 30 No Refills ACETAMINOPHEN (TYLENOL) 325 MG TAB 650 MILLIGRAM ORAL EVERY 4 HOURS NEEDED. as needed for TEMP > 38.5 C Days = 30 No Refills POLYETHYLENE GLYCOL 3350 (MIRALAX) 255 GM POWDER 17 GRAM ORAL DAILY. Days = 30 No Refills FERROUS SULFATE (FEOSOL) 325 MG TAB 325 MILLIGRAM ORAL DAILY. Days = 30 Qty = 30 No Refills AMIODARONE (CORDARONE) 200 MG TAB 400 MILLIGRAM ORAL TWICE DAILY. Days = 30 Qty = 120 No Refills METOPROLOL TARTRATE (LOPRESSOR) 25 MG TAB 25 MILLIGRAM ORAL EVERY 12 HOURS. Days = 30 Qty = 60 No Refills guaiFENesin ER (MUCINEX) 600 MG TAB.SA 600 MILLIGRAM ORAL EVERY 12 HOURS. Days = 10 Qty = [address] (PROTONIX) 40 MG TAB.DR 40 MILLIGRAM ORAL DAILY. Days = 30 Qty = 30 No Refills DOCUSATE SODIUM (COLACE) 100 MG CAP 100 MILLIGRAM ORAL TWICE DAILY. Days = 30 Qty = 60 No Refills SENNA (SENOKOT) 8.6 MG TAB 2 TABLET ORAL BEDTIME. Days = 30 Qty = 60 No Refills CYANOCOBALAMIN (VITAMIN B-12) 500 MCG TAB 500 MICROGRAM ORAL DAILY. Days = 30 Qty = 30 No Refills CLOPIDOGREL (PLAVIX) 75 MG TAB 75 MILLIGRAM ORAL DAILY. Days = 30 Qty = 30 No Refills ATORVASTATIN (LIPITOR) 40 MG TAB 40 MILLIGRAM ORAL 2100 Days = 30 Qty = 30 No Refills The following medications have been changed: Old: [BASAGLAR] 70 UNITS SUBCUTANE. BEDTIME. New: [BASAGLAR] 30 UNITS SUBCUTANE. BEDTIME. Days = 30 Objective VS/I O Last Documented: Result Date Time Pulse Ox 95 12/29 1222 B/P 117/60 12/29 1222 B/P Mean 0.0 12/29 1222 O2 Delivery Room air 12/29 1222 Temp 36.8 12/29 1222 Pulse 67 12/29 1222 Resp 16 12/29 1222 O2 Flow Rate 4 12/28 2147 FiO2 40 / 1457 PATIENT WEIGHT: Weight (lb): 289 Weight (oz): 0.42 Weight (kg): 131.100 Physical Exam Neck: no JVD Cardiovascular: regular rate rhythm Respiratory: decreased breath sounds, on oxygen Abdomen: normal bowel sounds, soft Genitourinary: no CVA tenderness Extremities: Extremities: decreased range of motion, edema 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, 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 Skin: surgical site dsg cdi Psychiatry: normal judgement/insight Discharge Instructions PCP )( Discharge to: Home Health wPlan of Care Discharge Instructions Additional Discharge Routines: PCP Follow-Up, Co nsultant Follow-Up )( Diet: Diabetic, Cardiac Follow-up Appointments PCP follow up: PCP: Avel Banerjee MD PCP follow up timeframe: In 1-2 weeks Special instructions: CALL OFFICE FOR APPOINTMENT Consulting provider 1: Provider 1: Paresh Hernadez MD Specialty: Thoracic Surgery Consult follow up timeframe: In 1-2 weeks Special instructions: CALL OFFICE FOR APPOINTMENT Consulting provider 2: Provider 2: Ian Coronel MD Specialty: Cardiology Follow up timeframe: In 1-2 weeks Special instructions: CALL OFFICE FOR APPOINTMENT Electronically Signed by Jae Jaffe MD n 02/02/21 at 1445 [facility] #:[id number] END OF REPORT 2020-12-29 23:46:00-00:00 [facility] Cardiothoracic Surgery Prog REPORT#:[id number] REPORT STATUS: Signed DATE:12/29/20 TIME: 2345 PATIENT: SONYA MINAYA UNIT #: [id number] ROOM/BED: [place] [id number] : 53 AGE: 65 SEX: M ATTEND: Jae Jaffe MD ADM AUTHOR: Kevin Hinkle NP * ALL edits or amendments must be made on the [employer]/computer document * General Status post: 1. Coronary artery bypass graft surgery x4 (GAMING to LAD, saphenous vein to diagonal, saphenous vein to marginal, saphenous vein to PDA). 2. Pulmonary vein isolation. 3. Isolation of left atrial appendage. 4. Endoscopic vein harvesting (right greater sa phenous vein). Subjective Chief Complaint: follow up CABG Pain around chest tube site Review of Systems Constitutional: Denies: chills, fatigue, fever. Skin: Denies: rash, swelling. Eyes: Denies: redness, discharge. Respiratory: Denies: SOB, wheezing. Cardiovascular: Denies: chest pain. GI: Denies: nausea, vomiting. Musculoskeletal: Denies: joint pain, joint swelling. Objective Physical Exam HEENT: pupils reactive to light, sclera clear Cardiovascular: normal heart sounds, regular rat e rhythm Respiratory: aerating well, clear to auscultatio n Abdomen: soft, non-tender Genitourinary: no duran Extremities: dry, moves all Musculoskeletal: full range of motion 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 Sonya Minaya is a 65-year-old m rod with past medical history significant for diabetes, hypertension, CAD, A. fib(Xarelto), and sleep apnea who has been experiencing shortness of breath an d increased heart rate while walking only short distances. Patient also has b een having intermittent chest pain with one severe episode that woke him from sleep. 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 Cardiac work-up includ ed an echocardiogram which revealed EF 55 and mild TR. Patient underwent cardiac cathet erization today which demonstrated multivessel cor onary artery disease. CV surgery has been consulted to evaluate the need for CABG 1. Coronary artery bypass graft surgery x4 (GAMING to LAD, saphenous vein to diagonal, saphenous vein to marginal, saphenous vein to PDA). 2. Pulmonary vein isolation. 3. Isolation of left atrial appendage. 4. Endoscopic vein harvesting (right greater sap henous vein) 4/2 POD 1 Awake. alert, up in chair 2L NC with adequate sats. wean to keep sats>93% HD stable. SR on the monitor. De line. DC duran, neck line, a-line, IS/flutter. CXR reviewed. min chest tube output, dc'd left pleural now. reassessed ct output at 7pm(minimal then dcd mediastinal Bowel regimen PT/OT to ambulate Discharge plan is home with good support 4/3 Ambulate Encourage incentive spirometry Encourage p.o. Wean oxygen as tolerated Discharge planning 4/ Wean oxygen as tolerated Ambulate Encourage incentive spirometry Discharge planning Probably home next 24 to 48 hours 4/5 Awake, alert, up in chair Room air. no distress. adequate sats. gets anxio us Encourage IS/flutter HD stable. SR on the monitor refusing lab draws US guided thoracentesis with 250 cc drained May use own bipap at night PT/OT ambulate Discharge plan: home with who will help car e for him 4/6 Awake, alert. refuse lab draws. wants to go home HD stable. SR on the monitor . Room air, breathing comfortable CXR reviewed PT/OT ambulate Discharge plan: home with who will help car e for him 4/7 Awake, alert. refuse lab draws. wants to go home HD stable. SR on the monitor . Room air, breathing comfortable Doppler to r/o DVT Echo to r/o pericardial effusion Cont ambulation and Use IS Ok for discharge home from CV surgery standpoint Cont plavix, aspirin, BB, Statin, pantaprazole,, amio Follow up in our clinic in 2 weeks time. Electronically Signed by Kevin Hinkle NP on 04/13 at 2349 RPT #:[id number] END OF REPORT 2020-12-29 23:46:00-00:00 [facility] Cardiothoracic Surgery Prog REPORT#:[id number] REPORT STATUS: Signed DATE:12/29/20 TIME: 234 PATIENT: SONYA MINAYA UNIT #: [id number] ROOM/BED: [place] [address] : 53 AGE: 65 SEX: M ATTEND: Jae Jaffe MD ADM AUTHOR: Kevin Hinkle NP * ALL edits or amendments must be made on the [employer]/computer document * General Status post: 1. Coronary artery bypass graft surgery x4 (GAMING to LAD, saphenous vein to diagonal, saphenous vein to marginal, saphenous vein to PDA). 2. Pulmonary vein isolation. 3. Isolation of left atrial appendage. 4. Endoscopic vein harvesting (right greater sa phenous vein). Subjective Chief Complaint: follow up CABG Pain around chest tube site Review of Systems Constitutional: Denies: chills, fatigue, fever. Skin: Denies: rash, swelling. Eyes: Denies: redness, discharge. Respiratory: Denies: SOB, wheezing. Cardiovascular: Denies: chest pain. GI: Denies: nausea, vomiting. Musculoskeletal: Denies: joint pain, joint swelling. Objective Physical Exam HEENT: pupils reactive to light, sclera clear Cardiovascular: normal heart sounds, regular rat e rhythm Respiratory: aerating well, clear to auscultatio n Abdomen: soft, non-tender Genitourinary: no duran Extremities: dry, moves all Musculoskeletal: full range of motion 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 Sonya Minaya is a 65-year-old m rod with past medical history significant for diabetes, hypertension, CAD, A. fib(Xarelto), and sleep apnea who has been experiencing shortness of breath an d increased heart rate while walking only short distances. Patient also has b een having intermittent chest pain with one severe episode that woke him from sleep. 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 Cardiac work-up includ ed an echocardiogram which revealed EF 55 and mild TR. Patient underwent cardiac cathet erization today which demonstrated multivessel cor onary artery disease. CV surgery has been consulted to evaluate the need for CABG 1. Coronary artery bypass graft surgery x4 (GAMING to LAD, saphenous vein to diagonal, saphenous vein to marginal, saphenous vein to PDA). 2. Pulmonary vein isolation. 3. Isolation of left atrial appendage. 4. Endoscopic vein harvesting (right greater sap henous vein) 4/2 POD 1 Awake. alert, up in chair 2L NC with adequate sats. wean to keep sats>93% HD stable. SR on the monitor. De line. DC duran, neck line, a-line, IS/flutter. CXR reviewed. min chest tube output, dc'd left pleural now. reassessed ct output at 7pm(minimal then dcd mediastinal Bowel regimen PT/OT to ambulate Discharge plan is home with good support 4/3 Ambulate Encourage incentive spirometry Encourage p.o. Wean oxygen as tolerated Discharge planning 4/4 Wean oxygen as tolerated Ambulate Encourage incentive spirometry Discharge planning Probably home next 24 to 48 hours 4/5 Awake, alert, up in chair Room air. no distress. adequate sats. gets anxio us Encourage IS/flutter HD stable. SR on the monitor refusing lab draws US guided thoracentesis with 250 cc drained May use own bipap at night PT/OT ambulate Discharge plan: home with who will help car e for him 4/6 Awake, alert. refuse lab draws. wants to go home HD stable. SR on the monitor . Room air, breathing comfortable CXR reviewed PT/OT ambulate Discharge plan: home with who will help car e for him 4/ Awake, alert. refuse lab draws. wants to go home HD stable. SR on the monitor . Room air, breathing comfortable Doppler to r/o DVT Echo to r/o pericardial effusion Cont ambulation and Use IS Ok for discharge home from CV surgery standpoint Cont plavix, aspirin, BB, Statin, pantaprazole,, amio Follow up in our clinic in 2 weeks time. Electronically Signed by Kevin Hinkle MEDICINE ASSISTANT on 04/13 at 2349 at 0029 RPT #:[id number] END OF REPORT 2020-12-29 17:15:00-00:00 [id number] [place] [address] PATIENT NAME: SONYA MINAYA ADMIT DATE: 1 ACCOUNT NO: [id number] ROOM NO: [facility] AGE: 65 REPORT TYPE: eECHOCARDIOGRAM REPORT SEX: M ADMITTING PHYSICIAN:Jae Jaffe MD ATTENDING PHYSICIAN:Jae Jaffe MD *[place] [address] Limited Transthoracic Echocardiogram Patient: Sonya Minaya Study Date: 12/29/2020 BP: 117 / 60 Location: [facility] URN: [id number] [id number] : 1955 Age: 65 Height: 70 in / 177.8 cm Gender: M Weight: 288 .4 lb / 131.1 kg BMI/BSA: 41.5 kg/m 2 / 2.6 m 2 *Ordering Physician: * Kevin Hinkle *Interpreting Physician: * Ian Coronel MD *Popcorn Machine Operator: * Farhana Roa Indications: R/O PERICARDIAL EFFUSION. Study data: Transthoracic echocardiogram, limite d study. Procedure: Transthoracic echocardiography was performed. Im age quality was adequate. Limited 2D and limited spectral Dopple r. Location: Bedside. Patient status: Inpatient. Patient room number: 3363. Study status: Routine. Findings Left ventricle: The cavity size is normal. Wall thickness is normal. Systolic function is normal. The estimated eject ion fraction is 55-59%. Wall motion is normal; there are no regional wal l motion abnormalities. Left atrium: The atrium is mildly dilated. Pericardium: A trivial pericardial effusion is i dentified. PATIENT NAME: SONYA MINAYA 0927 Measurements Left ventricle Value Ref ALTAGRACIA, LAX 4.4 cm 4.2 - 5.8 ESD, LAX 3.4 cm 2.5 - 4.0 ESD/bsa, LAX 1.3 cm/m 2 1.3 - 2.1 FS, LAX 22 % 25 - 43 ESD/bsa major ax, A4C 3.0 cm/m 2 --------- ALTAGRACIA/bsa minor ax, A4C 3.0 cm/m 2 --------- ALTAGRACIA major ax, A2C 8.0 cm --------- ALTAGRACIA/bsa major ax, A2C 3.1 cm/m 2 --------- PW, ED 1.0 cm 0.6 - 1.0 IVS/PW, ED 0.99 --------- EF 46 % 52 - 72 LVOT Value Ref Diam, S 2.16 cm --------- Area 3.7 cm 2 --------- Ventricular septum Value Ref IVS, ED 1.0 cm 0.6 - 1.0 Right ventricle Value Ref ALTAGRACIA, LAX 3.1 cm --------- Left atrium Value Ref Vol/bsa, ES, 1-p A4C 39 ml/m 2 12 - 37 Vol/bsa, ES, A/L 45 ml/m 2 16 - 34 AP dim, ES MM 4.4 cm 3.0 - 4.0 LA/Ao root ratio, MM 1.14 --------- Aortic valve Value Ref Leaflet sep, MM 2.10 cm --------- Mitral valve Value Ref E-septal separation 0.8 cm --------- E-F slope 0.09 m/sec --------- Aortic root Value Ref Root diam, ED MM 3.89 cm --------- Conclusions Summary: 1. Left ventricle: The cavity size is normal. Wa ll thickness is normal. Systolic function is normal. The estimated ejec tion fraction is 55-59%. Wall motion is normal; there are no reg ional wall motion abnormalities. 2. Left atrium: The atrium is mildly dilated. 3. Pericardium, extracardiac: A trivial pericard ial effusion is identified. PATIENT NAME: SONYA MINAYA 0927 Prepared and electronically signed by Ian Coronel MD 12/29/2020 17:15 Electronically Signed by Ian Coronel MD on 04/13 at 1716 PATIENT NAME: SONYA MINAYA 0927 2020-12-29 07:29:00-00:00 [facility] REPORT#:[id number] REPORT STATUS: Signed DATE:12/29/20 TIME: 728 PATIENT: SONYA MINAYA UNIT #: [id number] ROOM/BED: [place] [address] : 53 AGE: 65 SEX: M ATTEND: Jae Jaffe MD ADM AUTHOR: Ian Coronel MD * ALL edits or amendments must be made on the [employer]/computer document * Subjective Chief Complaint: NO MORE BLOOD TESTS Objective General VS/I O: 24 hour I O ending at 0700: 12/29 0700 12/28 1900 Intake Total 755 Output Total 2740 -1984 Intake, Oral 755 Number Voids 7 Output, Urine 2740 Patient 131.1 kg Weight Weight Standing scale Measurement Method Vital Signs: Date Time Temp Pulse Resp B/P B/P Pulse O2 O2 F low FiO2 Mean Ox Delivery Rate 12/29 0452 99.0 73 21 141/55 83.6 96 Room air 12/28 2342 99.5 67 23 148/61 89.6 92 Room air 12/28 2147 95 Nasal 4 cannula 12/28 1959 99.1 75 23 149/69 95.7 94 Room air 12/28 1558 97.7 72 16 138/83 101.0 93 Simple mask 12/28 1056 98.2 79 16 129/78 95.0 93 Room air 12/28 0734 98.4 70 16 136/69 91.4 93 Room air PATIENT WEIGHT: Weight (lb): 289 Weight (oz): 0.42 Weight (kg): 131.100 Medications: Active Meds + DC'd Last 24 Hrs Furosemide 20 MG ONCE ONE IV (DC) Insulin Glargine 15 UNIT BEDTIME SUBQ Insulin Human Lispro 5 UNIT AC SUBQ Amiodarone HCl 400 MG BID PO (CKD) Metoprolol Tartrate 25 MG Q12HR PO Cyanocobalamin 500 MCG DAILY PO Ferrous Sulfate 325 MG DAILY PO Bisacodyl 10 MG ONCE PRN RECTAL Fluticasone Propionate 1 SPRAY DAILY NASAL (CKD ) Guaifenesin 600 MG Q12HR PO Hydralazine HCl 10 MG Q6H PRN PRN IV Sodium Chloride 0 ASDIR PRN IV Levalbuterol HCl 0.63 MG RTQ4H PRN PRN INH Loratadine 10 MG DAILY PRN PRN PO Atorvastatin Calcium 40 MG 2100 PO Insulin Human Lispro 0 AC HS SUBQ Clopidogrel Bisulfate 75 MG DAILY PO Polyethylene Glycol 17 GM DAILY PO Sodium Chloride 10 ML ASDIR IV Docusate Sodium 100 MG BID PO Senna 2 TAB BEDTIME PO (CKD) Acetaminophen 650 MG Q4H PRN PRN PO Dextrose/Water 25 ML ASDIR PRN IV (CKD) Dextrose/Water 50 ML ASDIR PRN IV (CKD) Glucagon 1 MG ASDIR PRN IM Magnesium Sulfate 100 ML ASDIR PRN IV Magnesium Sulfate 50 ML ASDIR PRN IV Magnesium Sulfate/Dextrose 100 ML ASDIR PRN IV Ondansetron HCl 4 MG Q6H PRN PRN IV Oxycodone HCl 5 MG Q4H PRN PRN PO (DC) Oxycodone HCl 10 MG Q4H PRN PRN PO (DC) Paroxetine HCl 40 MG DAILY PO Pantoprazole 40 MG DAILY@0600 PO Physical Exam General appearance: alert, awake Head/Eyes: atraumatic, PERRL Neck: full range of motion, non-tender, normal thyroid, supple/no meningismus, no bruit/NL carotids, no JVD, no lymphadenopathy , no masses or swelling Cardiovascular: CV assessment: regular rate and rhythm Respiratory: clear to auscultation, no distress Abdomen: non-tender, normal bowel sounds , no distention, no guarding, no mass/ organomegaly, no pulsatile mass, no rebound Upper extremity: UE assessment: normal capillary refill, no luis armando a 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 Severe LM and three vessel CAD: S/P CABG post-op per CTS no longer on bipap, breathing improved b ut went into afib today- IV amiodarone started for 24 hours with po bb- monitor will give more lasix today as well asa, plavix, statin, bb 2. Obesity 3.Atrial Fib: Will change to PO Amiod 4. Hyperlipedemia 5. NIDDM 6. Sleesp apnea and insomnia: Will give Klonipen QHS Electronically Signed by Ian Coronel MD on 04/13 at 0730 RPT #:[id number] END OF REPORT 2020-12-28 23:17:00-00:00 [facility] Internal Medicine Prog. Note REPORT#:[id number] REPORT STATUS: Signed DATE:12/28/20 TIME: 2316 PATIENT: SONYA MINAYA UNIT #: [id number] ROOM/BED: [place] [address] : 53 AGE: 65 SEX: M ATTEND: Jae Jaffe MD ADM AUTHOR: Junie Yu NP * ALL edits or amendments must be made on the [employer] document * Subjective Chief Complaint: Visit coronary artery disease Status post CABG x4 Review of Systems Constitutional: Denies: chills, fever. ENT: Reports: sore throat. Denies: earache, nasal con gestion. Respiratory: Reports: FREEMAN (dyspnea on exe rtion). Denies: hemoptysis, parox nocturnal dyspnea , pleurisy, pleuritic pain, pneumonia, SOB, whee zing. Cardiovascular: Reports: chest pain. Denies: palpitations. GI: Denies: abdominal pain, nausea, vomiting. : Reports: other. Musculoskeletal: Reports: extremity pain, extremity swelling. Den ies: joint pain, lumbar pain, neck pain. Neuro: Denies: focal weakness, headache, slurred speech . Psych: Denies: agitation, anxiety, auditory hallucinati on, change in mental status, confusion, delusional, depre ssion, homicidal ideation, hostile, insomnia, stress , suicidal ideation, visual hallucination. Objective General VS/I O: Chemistry: 12/28 1552 1054 0732 Chemistry POC Glucose (70 - 110 MG/DL) 127 H 159 H 212 H 158 H Vital Signs: Date Time Temp Pulse Resp B/P B/P Pulse O2 O2 F low FiO2 Mean Ox Delivery Rate 12/28 2146 95 Nasal 4 cannula 12/28 1958 37.3 75 23 149/69 95.7 94 Room air 12/28 1558 36.5 72 16 138/83 101.0 93 Simple mask 12/28 1056 36.8 79 16 129/78 95.0 93 Room air 12/28 0734 36.9 70 16 136/69 91.4 93 Room air 12/28 0619 98 Nasal 4 cannula 12/28 0348 36.7 64 20 130/75 93.1 98 12/27 2331 Nasal 2 cannula 12/28 0712/27 2300 12/27 1500 Intake Total 240 Output Total 550 200 Balance -550 40 Intake, Oral 240 Output, Urine 550 200 Current Medications Sig/Jero Start time Last Medication Dose Route Stop Time Status Admin Furosemide 20 MG ONCE ONE 12/28 1730 DC 12/28 IV 12/28 1731 1800 Insulin Glargine 15 UNIT BEDTIME 12/27 2100 AC 12/28 SUBQ 01/26 2059 2106 Insulin Human Lispro 5 UNIT AC 12/27 1630 AC SUBQ 01/26 1629 1656 Amiodarone HCl 400 MG BID 12/27 899 CKD 12/28 PO 01/26 0859 210 Metoprolol Tartrate 25 MG Q12HR 12/26 1215 AC 0 12/28 PO 01/25 1214 2108 Cyanocobalamin 500 MCG DAILY 12/26 899 AC 04 6 PO 01/25 0859 0906 Ferrous Sulfate 325 MG DAILY 12/26 09 AC PO 01/25 0859 0907 Bisacodyl 10 MG ONCE PRN 12/25 1200 AC RECTAL 01/24 1159 Fluticasone 1 SPRAY DAILY 12/25 899 CKD 12/28 Propionate NASAL 01/24 0859 0904 Guaifenesin 600 MG Q12HR 12/25 09 AC 12/28 PO 01/24 0859 2107 Hydralazine HCl 10 MG Q6H PRN PRN 12/25 0645 AC IV 01/24 0644 Sodium Chloride 0 ASDIR PRN 12/25 0645 AC IV 01/24 0644 Levalbuterol HCl 0.63 MG RTQ4H PRN PRN 12/25 04 30 AC 12/25 INH 01/24 0429 0551 Loratadine 10 MG DAILY PRN PRN 12/25 0430 AC PO 01/24 0429 1138 Atorvastatin Calcium 40 MG 2100 12/24 2100 AC 0 12/28 PO 01/23 Insulin Human Lispro 0 AC HS 12/24 1630 AC SUBQ 01/23 1629 1657 Clopidogrel Bisulfate 75 MG DAILY 12/24 09 AC 12/28 PO 01/23 0859 0906 Polyethylene Glycol 17 GM DAILY 12/24 09 AC 0 12/28 PO 01/23 0859 0904 Sodium Chloride 10 ML ASDIR 12/24 08 AC IV 01/23 0759 Docusate Sodium 100 MG BID 12/23 2100 AC 12/28 PO 01/22 Senna 2 TAB BEDTIME 12/23 2100 CKD 02 PO 01/22 Acetaminophen 650 MG Q4H PRN PRN 12/23 1130 AC 12/24 PO 01/22 1129 2212 Dextrose/Water 25 ML ASDIR PRN 12/23 1130 CKD IV 01/22 1129 Dextrose/Water 50 ML ASDIR PRN 12/23 1130 CKD IV 01/22 1129 Glucagon 1 MG ASDIR PRN 12/23 1130 AC IM 01/22 1129 Magnesium Sulfate 100 ML ASDIR PRN 12/23 1130 A C IV 01/22 1129 Magnesium Sulfate 50 ML ASDIR PRN 12/23 1130 AC 12/24 IV 01/22 1129 0448 Magnesium Sulfate/ 100 ML ASDIR PRN 12/23 1130 AC Dextrose IV 01/22 1129 Ondansetron HCl 4 MG Q6H PRN PRN 12/23 1130 AC IV 01/22 1129 Oxycodone HCl 5 MG Q4H PRN PRN 12/23 1130 DC PO 12/28 1129 0005 Oxycodone HCl 10 MG Q4H PRN PRN 12/23 1130 DC 0 12/26 PO 12/28 1129 2130 Paroxetine HCl 40 MG DAILY 12/23 09 AC 12/28 PO 01/22 0859 0905 Pantoprazole 40 MG DAILY@0600 12/23 0600 AC PO 01/22 0559 0640 Recent Impressions-Last 72 Hrs RADIOLOGY - XR CHEST 1 V 12/26 0704 Report Impression - Status: SIGNED Entered: 12/26/2020 0957 IMPRESSION: Stable chest. SL: [id number] Impression By: [email or web address] Charles Peterson. RADIOLOGY - XR CHEST 1 V 12/27 0540 Report Impression - Status: SIGNED Entered: 12/27/2020 0827 IMPRESSION: Lines, tubes and hardware: Prior sternotomy salgado ges. Heart, mediastinum and lungs: Heart and hilar va sculature is stable. Right lung remains clear. Unchanged moderate lay ering left effusion with underlying airspace disease. SL: [id number] Impression By: Pankaj Crews D.O. ULTRASOUND - US THORACENTESIS W/IMAG 12/27 1445 Report Impression - Status: SIGNED Entered: 12/27/2020 1520 IMPRESSION: 1. Technically successful ultrasound-guided thor acentesis. Impression By: Pankaj Crews D.O. RADIOLOGY - XR CHEST 1 V 12/27 1455 Report Impression - Status: SIGNED Entered: 12/27/2020 1507 IMPRESSION: Lines, tubes and hardware: Prior sternotomy salagdo ges. Heart, mediastinum and lungs: Heart and hilar va sculature is stable. Right lung remains clear. Improvement in layerin g left effusion with underlying airspace disease. No left pneumothora x is seen. SL: [id number] Impression By: Pankaj Crews D.O. RADIOLOGY - XR CHEST 1 V 12/28 0545 Report Impression - Status: SIGNED Entered: 12/28/2020 0825 IMPRESSION: Left retrocardiac opacity, representing any comb ination of pleural effusion, atelectasis, or pneumonia. SL: [id number] Impression By: [email or web address] Chelsy De La Cruz M.D. Vital Signs Date Temp Pulse Resp B/P B/P Mean Pulse Ox FiO2 12/27-12/28 36.5-37.3 64-79 16-23 129-149/69-83 91.4-101.0 93-98 Last Documented: Result Date Time Pulse Ox 95 12/28 2146 O2 Delivery Nasal cannula 12/28 2146 O2 Flow Rate 4 12/28 2146 B/P 149/69 12/28 1958 B/P Mean 95.7 12/28 1958 Temp 37.3 12/28 1958 Pulse 75 12/28 1958 Resp 23 12/28 1958 FiO2 40 12/25 1457 24 hour I O ending at 0700: 12/28 0712/27 1900 Intake Total 240 Output Total 750 Balance -510 Intake, Oral 240 Output, Urine 750 PATIENT WEIGHT: Weight (lb): 294 Weight (oz): 15.66 Weight (kg): 133.800 Physical Exam Neck: no JVD Cardiovascular: regular rate rhythm Respiratory: decreased breath sounds, on oxygen Abdomen: normal bowel sounds, soft Genitourinary: no CVA tenderness Extremities: Extremities: decreased range of motion, edema 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 Patient und erwent the procedure well but needing coronary artery bypass graft due to mult iple vessel disease. 1. Status post left heart cath revealing multive ssel coronary artery disease 2. Chest pain/dyspnea on exertion 3. Hypertension 4. Diabetes mellitus type 2 5. Dyslipidemia statin 6. Morbid obesity 12/23/2020: Status post CABG x4 Patient postop Is awake complaining of pain Chest tubes x2 Duran catheter to bedside drainage No pressors December 24, 2020 Patient out of bed Transferred to CVN 1 12/25/20 Patient notes that he is feeling fatigued and borden ving too much pain with ambulation Encourage ambulation and incentive spirometer Work with PT/OT We will discharge once cleared by cardiothoracic team 12/26/20 Patient with some anxiety Complains of shortness of breath when laying alirio n More comfortable sitting on a recliner December 27, 2020: Continue with present care Continue with diuretics Consultants gwendolyn noted 12/28/20 Patient seems to be doing better He was diuretics Continue with glycemic control Possible discharge in a.m. Plan of care: Keep patient on telemetry Continue to monitor closely Glycemic control -SS we will add Lantus in a.m. DVT prophylaxis Lovenox Continue with current medications Repeat labs Pain control Continue with PT/OT Possible discharge in a.m. Plan of care discussed with the patient, patient 's nurse, and Dr. Underwood. Electronically Signed by Junie Yu MEDICINE ASSISTANT on 0 02/07/21 at 0637 RPT #:[id number] END OF REPORT 2020-12-28 23:17:00-00:00 [facility] Internal Medicine Prog. Note REPORT#:[id number] REPORT STATUS: Signed DATE:12/28/20 TIME: 2316 PATIENT: SONYA MINAYA UNIT #: [id number] ROOM/BED: [place] [address] : 53 AGE: 65 SEX: M ATTEND: Jae Jaffe MD ADM AUTHOR: Junie Yu MEDICINE ASSISTANT * ALL edits or amendments must be made on the [employer]/computer document * uJnie Yu 12/28/20 2317: Subjective Chief Complaint: Visit coronary artery disease Status post CABG x4 Review of Systems Constitutional: Denies: chills, fever. ENT: Reports: sore throat. Denies: earache, nasal con gestion. Respiratory: Reports: FREEMAN (dyspnea on exe rtion). Denies: hemoptysis, parox nocturnal dyspnea , pleurisy, pleuritic pain, pneumonia, SOB, whee zing. Cardiovascular: Reports: chest pain. Denies: palpitations. GI: Denies: abdominal pain, nausea, vomiting. : Reports: other. Musculoskeletal: Reports: extremity pain, extremity swelling. Den ies: joint pain, lumbar pain, neck pain. Neuro: Denies: focal weakness, headache, slurred speech . Psych: Denies: agitation, anxiety, auditory hallucinati on, change in mental status, confusion, delusional, depre ssion, homicidal ideation, hostile, insomnia, stress , suicidal ideation, visual hallucination. Objective General VS/I O: Chemistry: 12/28 1552 1054 0732 Chemistry POC Glucose (70 - 110 MG/DL) 127 H 159 H 212 H 158 H Vital Signs: Date Time Temp Pulse Resp B/P B/P Pulse O2 O2 F low FiO2 Mean Ox Delivery Rate 12/28 2147 95 Nasal 4 cannula 12/28 1958 37.3 75 23 149/69 95.7 94 Room air 12/28 1558 36.5 72 16 138/83 101.0 93 Simple mask 12/28 1056 36.8 79 16 129/78 95.0 93 Room air 12/28 0734 36.9 70 16 136/69 91.4 93 Room air 12/28 0619 98 Nasal 4 cannula 12/28 0348 36.7 64 20 130/75 93.1 98 12/27 2331 Nasal 2 cannula 12/28 0712/27 2300 04 1500 Intake Total 240 Output Total 550 200 Balance -550 40 Intake, Oral 240 Output, Urine 550 200 Current Medications Sig/Jero Start time Last Medication Dose Route Stop Time Status Admin Furosemide 20 MG ONCE ONE 12/28 1730 DC 12/28 IV 12/28 1731 1800 Insulin Glargine 15 UNIT BEDTIME 12/27 2100 AC 12/28 SUBQ 01/26 205 210 Insulin Human Lispro 5 UNIT AC 12/27 1630 AC SUBQ 01/26 1629 1656 Amiodarone HCl 400 MG BID 12/27 899 CKD 12/28 PO 01/26 0859 210 Metoprolol Tartrate 25 MG Q12HR 12/26 1215 AC 0 12/28 PO 01/25 1214 2108 Cyanocobalamin 500 MCG DAILY 12/26 899 AC 04 6 PO 01/25 0859 0906 Ferrous Sulfate 325 MG DAILY 12/26 899 AC 6 PO 01/25 0859 0907 Bisacodyl 10 MG ONCE PRN 12/25 1200 AC RECTAL 01/24 1159 Fluticasone 1 SPRAY DAILY 12/25 899 CKD 12/28 Propionate NASAL 01/24 0859 0904 Guaifenesin 600 MG Q12HR 12/25 09 AC 12/28 PO 01/24 0859 210 Hydralazine HCl 10 MG Q6H PRN PRN 12/25 0645 AC IV 01/24 0644 Sodium Chloride 0 ASDIR PRN 12/25 0645 AC IV 01/24 0644 Levalbuterol HCl 0.63 MG RTQ4H PRN PRN 12/25 04 30 AC 12/25 INH 01/24 0429 0551 Loratadine 10 MG DAILY PRN PRN 12/25 0430 AC PO 01/24 0429 1138 Atorvastatin Calcium 40 MG 2100 12/24 2100 AC 0 12/28 PO 01/23 Insulin Human Lispro 0 AC HS 12/24 1630 AC 6 SUBQ 01/23 1629 1657 Clopidogrel Bisulfate 75 MG DAILY 12/24 09 AC 12/28 PO 01/23 0859 0906 Polyethylene Glycol 17 GM DAILY 12/24 09 AC 0 12/28 PO 01/23 0859 0904 Sodium Chloride 10 ML ASDIR 12/24 0800 AC IV 01/23 0759 Docusate Sodium 100 MG BID 12/23 2099 AC 12/28 PO 01/22 Senna 2 TAB BEDTIME 12/23 2100 CKD 12/24 PO 01/22 Acetaminophen 650 MG Q4H PRN PRN 12/23 1130 AC 12/24 PO 01/22 1129 2212 Dextrose/Water 25 ML ASDIR PRN 12/23 1130 CKD IV 01/22 1129 Dextrose/Water 50 ML ASDIR PRN 12/23 1130 CKD IV 01/22 1129 Glucagon 1 MG ASDIR PRN 12/23 1130 AC IM 01/22 1129 Magnesium Sulfate 100 ML ASDIR PRN 12/23 1130 A C IV 01/22 1129 Magnesium Sulfate 50 ML ASDIR PRN 12/23 1130 AC 12/24 IV 01/22 1129 0448 Magnesium Sulfate/ 100 ML ASDIR PRN 12/23 1130 AC Dextrose IV 01/22 1129 Ondansetron HCl 4 MG Q6H PRN PRN 12/23 1130 AC IV 01/22 1129 Oxycodone HCl 5 MG Q4H PRN PRN 12/23 1130 DC PO 12/28 1129 0005 Oxycodone HCl 10 MG Q4H PRN PRN 12/23 1130 DC 0 12/26 PO 12/28 1129 2130 Paroxetine HCl 40 MG DAILY 12/23 899 AC 12/28 PO 01/22 0859 0905 Pantoprazole 40 MG DAILY@0600 12/23 0600 AC PO 01/22 0559 0640 Recent Impressions-Last 72 Hrs RADIOLOGY - XR CHEST 1 V 12/26 0704 Report Impression - Status: SIGNED Entered: 12/26/2020 0957 IMPRESSION: Stable chest. SL: [id number] Impression By: [email or web address] Charles Peterson. RADIOLOGY - XR CHEST 1 V 12/27 0540 Report Impression - Status: SIGNED Entered: 12/27/2020 0827 IMPRESSION: Lines, tubes and hardware: Prior sternotomy salgado ges. Heart, mediastinum and lungs: Heart and hilar va sculature is stable. Right lung remains clear. Unchanged moderate lay ering left effusion with underlying airspace disease. SL: [id number] Impression By: Pankaj Crews D.O. ULTRASOUND - US THORACENTESIS W/IMAG 12/27 1445 Report Impression - Status: SIGNED Entered: 12/27/2020 1520 IMPRESSION: 1. Technically successful ultrasound-guided thor acentesis. Impression By: Pankaj Crews D.O. RADIOLOGY - XR CHEST 1 V 12/27 1455 Report Impression - Status: SIGNED Entered: 12/27/2020 1507 IMPRESSION: Lines, tubes and hardware: Prior sternotomy salgado ges. Heart, mediastinum and lungs: Heart and hilar va sculature is stable. Right lung remains clear. Improvement in layerin g left effusion with underlying airspace disease. No left pneumothora x is seen. SL: [id number] Impression By: Pankaj Crews D.O. RADIOLOGY - XR CHEST 1 V 12/28 0545 Report Impression - Status: SIGNED Entered: 12/28/2020 0825 IMPRESSION: Left retrocardiac opacity, representing any comb ination of pleural effusion, atelectasis, or pneumonia. SL: [id number] Impression By: [email or web address] Chelsy De La Cruz M.D. Vital Signs Date Temp Pulse Resp B/P B/P Mean Pulse Ox FiO2 04/-12/28 36.5-37.3 64-79 16-23 129-149/69-83 91.4-101.0 93-98 Last Documented: Result Date Time Pulse Ox 95 12/28 2146 O2 Delivery Nasal cannula 12/28 2146 O2 Flow Rate 4 12/28 2146 B/P 149/69 12/28 1958 B/P Mean 95.7 12/28 1958 Temp 37.3 12/28 1958 Pulse 75 12/28 1958 Resp 23 12/28 1958 FiO2 40 12/25 1457 24 hour I O ending at 0700: 12/28 0700 12/27 1900 Intake Total 240 Output Total 750 Balance -510 Intake, Oral 240 Output, Urine 750 PATIENT WEIGHT: Weight (lb): 294 Weight (oz): 15.66 Weight (kg): 133.800 Physical Exam Neck: no JVD Cardiovascular: regular rate rhythm Respiratory: decreased breath sounds, on oxygen Abdomen: normal bowel sounds, soft Genitourinary: no CVA tenderness Extremities: Extremities: decreased range of motion, edema 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 Patient und erwent the procedure well but needing coronary artery bypass graft due to mult iple vessel disease. 1. Status post left heart cath revealing multive ssel coronary artery disease 2. Chest pain/dyspnea on exertion 3. Hypertension 4. Diabetes mellitus type 2 5. Dyslipidemia statin 6. Morbid obesity 12/23/2020: Status post CABG x4 Patient postop Is awake complaining of pain Chest tubes x2 Duran catheter to bedside drainage No pressors December 24, 2020 Patient out of bed Transferred to CVN 1 12/25/20 Patient notes that he is feeling fatigued and borden ving too much pain with ambulation Encourage ambulation and incentive spirometer Work with PT/OT We will discharge once cleared by cardiothoracic team 12/26/20 Patient with some anxiety Complains of shortness of breath when laying alirio n More comfortable sitting on a recliner December 27, 2020: Continue with present care Continue with diuretics Consultants gwendolyn noted 12/28/20 Patient seems to be doing better He was diuretics Continue with glycemic control Possible discharge in a.m. Plan of care: Keep patient on telemetry Continue to monitor closely Glycemic control -SS we will add Lantus in a.m. DVT prophylaxis Lovenox Continue with current medications Repeat labs Pain control Continue with PT/OT Possible discharge in a.m. Plan of care discussed with the patient, patient 's nurse, and Dr. Underwood. Jae Underwood 02/24/21 1840: Attestations Physician Attestation Agree w/findings plan: Patient seen and evaluated on 12/28/2020. I Agree with the findings and plan as documented by DOROTEO Yu. Plan of care coordinat ed with DOROTEO Yu. Pertinent labs, Imaging, and behavioral consultant evaluations review ed. Electronically Signed by Junie Yu MEDICINE ASSISTANT on 0 02/07/21 at 0637 RPT #:[id number] END OF REPORT 2020-12-28 23:17:00-00:00 [facility] REPORT#:[id number] REPORT STATUS: Signed DATE:12/28/20 TIME: 2316 PATIENT: SONYA MINAYA UNIT #: [id number] ROOM/BED: [place] [address] : 53 AGE: 65 SEX: M ATTEND: Jae Jaffe MD ADM AUTHOR: Junie Yu MEDICINE ASSISTANT * ALL edits or amendments must be made on the [employer]/computer document * Junie Yu 12/28/20 2317: Subjective Chief Complaint: Visit coronary artery disease Status post CABG x4 Review of Systems Constitutional: Denies: chills, fever. ENT: Reports: sore throat. Denies: earache, nasal con gestion. Respiratory: Reports: FREEMAN (dyspnea on exe rtion). Denies: hemoptysis, parox nocturnal dyspnea , pleurisy, pleuritic pain, pneumonia, SOB, whee zing. Cardiovascular: Reports: chest pain. Denies: palpitations. GI: Denies: abdominal pain, nausea, vomiting. : Reports: other. Musculoskeletal: Reports: extremity pain, extremity swelling. Den ies: joint pain, lumbar pain, neck pain. Neuro: Denies: focal weakness, headache, slurred speech . Psych: Denies: agitation, anxiety, auditory hallucinati on, change in mental status, confusion, delusional, depre ssion, homicidal ideation, hostile, insomnia, stress , suicidal ideation, visual hallucination. Objective General VS/I O: Chemistry: 12/28 1552 1054 0732 Chemistry POC Glucose (70 - 110 MG/DL) 127 H 159 H 212 H 158 H Vital Signs: Date Time Temp Pulse Resp B/P B/P Pulse O2 O2 F low FiO2 Mean Ox Delivery Rate 12/28 2146 95 Nasal 4 cannula 12/28 1958 37.3 75 23 149/69 95.7 94 Room air 12/28 1558 36.5 72 16 138/83 101.0 93 Simple mask 12/28 105 36.8 79 16 129/78 95.0 93 Room air 12/28 0734 36.9 70 16 136/69 91.4 93 Room air 12/28 0619 98 Nasal 4 cannula 12/28 0348 36.7 64 20 130/75 93.1 98 12/27 2331 Nasal 2 cannula 12/28 0712/27 2300 12/27 1500 Intake Total 240 Output Total 550 200 Balance -550 40 Intake, Oral 240 Output, Urine 550 200 Current Medications Sig/Jero Start time Last Medication Dose Route Stop Time Status Admin Furosemide 20 MG ONCE ONE 12/28 1730 DC 12/28 IV 12/28 1731 1800 Insulin Glargine 15 UNIT BEDTIME 12/27 2100 AC 12/28 SUBQ 01/26 205 210 Insulin Human Lispro 5 UNIT AC 12/27 1630 AC SUBQ 01/26 1629 1656 Amiodarone HCl 400 MG BID 12/27 09 CKD 12/28 PO 01/26 859 210 Metoprolol Tartrate 25 MG Q12HR 12/26 1215 AC 0 12/28 PO 01/25 1214 2108 Cyanocobalamin 500 MCG DAILY 12/26 899 AC 040 6 PO 01/25 859 09 Ferrous Sulfate 325 MG DAILY 12/26 899 AC 6 PO 05/04 0859 0907 Bisacodyl 10 MG ONCE PRN 12/25 1200 AC RECTAL 01/24 1159 Fluticasone 1 SPRAY DAILY 12/25 09 CKD 12/28 Propionate NASAL 01/24 0859 0904 Guaifenesin 600 MG Q12HR 12/25 0900 AC 12/28 PO 01/24 0859 2107 Hydralazine HCl 10 MG Q6H PRN PRN 12/25 0645 AC IV 01/24 0644 Sodium Chloride 0 ASDIR PRN 12/25 0645 AC IV 01/24 0644 Levalbuterol HCl 0.63 MG RTQ4H PRN PRN 12/25 04 30 AC 12/25 INH 01/24 0429 0551 Loratadine 10 MG DAILY PRN PRN 12/25 0430 AC PO 01/24 0429 1138 Atorvastatin Calcium 40 MG 2100 12/24 2100 AC 0 12/28 PO 01/23 Insulin Human Lispro 0 AC HS 12/24 1630 AC 6 SUBQ 01/23 1629 1657 Clopidogrel Bisulfate 75 MG DAILY 12/24 09 AC 12/28 PO 01/23 0859 0906 Polyethylene Glycol 17 GM DAILY 12/24 0900 AC 0 12/28 PO 01/23 0859 0904 Sodium Chloride 10 ML ASDIR 12/24 08 AC IV 01/23 0759 Docusate Sodium 100 MG BID 12/23 2100 AC 12/28 PO 01/22 2059 210 Senna 2 TAB BEDTIME 12/23 2100 CKD 12/24 PO 01/22 205 204 Acetaminophen 650 MG Q4H PRN PRN 12/23 1130 AC 12/24 PO 01/22 1129 2212 Dextrose/Water 25 ML ASDIR PRN 12/23 1130 CKD IV 01/22 1129 Dextrose/Water 50 ML ASDIR PRN 12/23 1130 CKD IV 01/22 1129 Glucagon 1 MG ASDIR PRN 12/23 1130 AC IM 01/22 1129 Magnesium Sulfate 100 ML ASDIR PRN 12/23 1130 A C IV 01/22 1129 Magnesium Sulfate 50 ML ASDIR PRN 12/23 1130 AC 12/24 IV 01/22 1129 0448 Magnesium Sulfate/ 100 ML ASDIR PRN 12/23 1130 AC Dextrose IV 01/22 1129 Ondansetron HCl 4 MG Q6H PRN PRN 12/23 1130 AC IV 01/22 1129 Oxycodone HCl 5 MG Q4H PRN PRN 12/23 1130 DC PO 12/28 1129 0005 Oxycodone HCl 10 MG Q4H PRN PRN 12/23 1130 DC 12/26 PO 12/28 1129 2130 Paroxetine HCl 40 MG DAILY 12/23 0900 AC 12/28 PO 01/22 0859 0905 Pantoprazole 40 MG DAILY@0600 12/23 0600 AC PO 01/22 0559 0640 Recent Impressions-Last 72 Hrs RADIOLOGY - XR CHEST 1 V 12/26 0704 Report Impression - Status: SIGNED Entered: 12/26/2020 0957 IMPRESSION: Stable chest. SL: [id number] Impression By: [email or web address] Charles Peterson RADIOLOGY - XR CHEST 1 V 12/27 0540 Report Impression - Status: SIGNED Entered: 12/27/2020 0827 IMPRESSION: Lines, tubes and hardware: Prior sternotomy salgado ges. Heart, mediastinum and lungs: Heart and hilar va sculature is stable. Right lung remains clear. Unchanged moderate lay ering left effusion with underlying airspace disease. SL: [id number] Impression By: Pankaj Crews D.O. ULTRASOUND - US THORACENTESIS W/IMAG 12/27 1445 Report Impression - Status: SIGNED Entered: 12/27/2020 1520 IMPRESSION: 1. Technically successful ultrasound-guided thor acentesis. Impression By: Pankaj Crews D.O. RADIOLOGY - XR CHEST 1 V 12/27 1455 Report Impression - Status: SIGNED Entered: 12/27/2020 1507 IMPRESSION: Lines, tubes and hardware: Prior sternotomy salgado ges. Heart, mediastinum and lungs: Heart and hilar va sculature is stable. Right lung remains clear. Improvement in layerin g left effusion with underlying airspace disease. No left pneumothora x is seen. SL: [id number] Impression By: Pankaj Crews D.O. RADIOLOGY - XR CHEST 1 V 12/28 0545 Report Impression - Status: SIGNED Entered: 12/28/2020 0825 IMPRESSION: Left retrocardiac opacity, representing any comb ination of pleural effusion, atelectasis, or pneumonia. SL: [id number] Impression By: [email or web address] Chelsy De La Cruz M.D. Vital Signs Date Temp Pulse Resp B/P B/P Mean Pulse Ox FiO2 12/27-12/28 36.5-37.3 64-79 16-23 129-149/69-83 91.4-101.0 93-98 Last Documented: Result Date Time Pulse Ox 95 12/28 2146 O2 Delivery Nasal cannula 12/28 2146 O2 Flow Rate 4 12/28 2146 B/P 149/69 12/28 1958 B/P Mean 95.7 12/28 1958 Temp 37.3 12/28 1958 Pulse 75 12/28 1958 Resp 23 12/28 1958 FiO2 40 12/25 1457 24 hour I O ending at 0700: 12/28 0700 12/27 1900 Intake Total 240 Output Total 750 Balance -510 Intake, Oral 240 Output, Urine 750 PATIENT WEIGHT: Weight (lb): 294 Weight (oz): 15.66 Weight (kg): 133.800 Physical Exam Neck: no JVD Cardiovascular: regular rate rhythm Respiratory: decreased breath sounds, on oxygen Abdomen: normal bowel sounds, soft Genitourinary: no CVA tenderness Extremities: Extremities: decreased range of motion, edema 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 Patient und erwent the procedure well but needing coronary artery bypass graft due to mult iple vessel disease. 1. Status post left heart cath revealing multive ssel coronary artery disease 2. Chest pain/dyspnea on exertion 3. Hypertension 4. Diabetes mellitus type 2 5. Dyslipidemia statin 6. Morbid obesity 12/23/2020: Status post CABG x4 Patient postop Is awake complaining of pain Chest tubes x2 Duran catheter to bedside drainage No pressors December 24, 2020 Patient out of bed Transferred to N 1 12/25/20 Patient notes that he is feeling fatigued and borden ving too much pain with ambulation Encourage ambulation and incentive spirometer Work with PT/OT We will discharge once cleared by cardiothoracic team 12/26/20 Patient with some anxiety Complains of shortness of breath when laying alirio n More comfortable sitting on a recliner December 27, 2020: Continue with present care Continue with diuretics Consultants gwendolyn noted 12/28/20 Patient seems to be doing better He was diuretics Continue with glycemic control Possible discharge in a.m. Plan of care: Keep patient on telemetry Continue to monitor closely Glycemic control -SS we will add Lantus in a.m. DVT prophylaxis Lovenox Continue with current medications Repeat labs Pain control Continue with PT/OT Possible discharge in a.m. Plan of care discussed with the patient, patient 's nurse, and Dr. Underwood. Jae Underwood 02/24/21 1840: Attestations Physician Attestation Agree w/findings plan: Patient seen and evaluated on 12/28/2020. I Agree with the findings and plan as documented by DOROTEO Yu. Plan of care coordinat ed with DOROTEO Yu. Pertinent labs, Imaging, and behavioral consultant evaluations review ed. Electronically Signed by Junie Yu NP on 0 02/07/21 at 0637 Electronically Signed by Jae Jaffe MD 02/24/21 at 1842 RPT #:[id number] END OF REPORT 2020-12-28 20:04:00-00:00 [facility] Cardiothoracic Surgery Prog REPORT#:[id number] REPORT STATUS: Signed DATE:12/28/20 TIME: 2003 PATIENT: SONYA MINAYA UNIT #: [id number] ROOM/BED: [place] [address] : 53 AGE: 65 SEX: M ATTEND: Jae Jaffe MD ADM AUTHOR: Kevin Hinkle NP * ALL edits or amendments must be made on the el [employer]/computer document * General Status post: 1. Coronary artery bypass graft surgery x4 (GAMING to LAD, saphenous vein to diagonal, saphenous vein to marginal, saphenous vein to PDA). 2. Pulmonary vein isolation. 3. Isolation of left atrial appendage. 4. Endoscopic vein harvesting (right greater sa phenous vein). Subjective Chief Complaint: follow up CABG Pain around chest tube site Review of Systems Constitutional: Denies: chills, fatigue, fever. Skin: Denies: rash, swelling. Eyes: Denies: redness, discharge. Respiratory: Denies: SOB, wheezing. Cardiovascular: Denies: chest pain. GI: Denies: nausea, vomiting. Musculoskeletal: Denies: joint pain, joint swelling. Objective Physical Exam HEENT: pupils reactive to light, sclera clear Cardiovascular: normal heart sounds, regular rat e rhythm Respiratory: aerating well, clear to auscultatio n Abdomen: soft, non-tender Genitourinary: no duran Extremities: dry, moves all Musculoskeletal: full range of motion 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 Sonya Minaya is a 65-year-old m rod with past medical history significant for diabetes, hypertension, CAD, A. fib(Xarelto), and sleep apnea who has been experiencing shortness of breath an d increased heart rate while walking only short distances. Patient also has b een having intermittent chest pain with one severe episode that woke him from sleep. 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 Cardiac work-up includ ed an echocardiogram which revealed EF 55 and mild TR. Patient underwent cardiac cathet erization today which demonstrated multivessel cor onary artery disease. CV surgery has been consulted to evaluate the need for CABG 1. Coronary artery bypass graft surgery x4 (GAMING to LAD, saphenous vein to diagonal, saphenous vein to marginal, saphenous vein to PDA). 2. Pulmonary vein isolation. 3. Isolation of left atrial appendage. 4. Endoscopic vein harvesting (right greater sap henous vein) 4/2 POD 1 Awake. alert, up in chair 2L NC with adequate sats. wean to keep sats>93% HD stable. SR on the monitor. De line. DC duran, neck line, a-line, IS/flutter. CXR reviewed. min chest tube output, dc'd left pleural now. reassessed ct output at 7pm(minimal then dcd mediastinal Bowel regimen PT/OT to ambulate Discharge plan is home with good support 4/ Ambulate Encourage incentive spirometry Encourage p.o. Wean oxygen as tolerated Discharge planning 12/26 Wean oxygen as tolerated Ambulate Encourage incentive spirometry Discharge planning Probably home next 24 to 48 hours 4/5 Awake, alert, up in chair Room air. no distress. adequate sats. gets anxio us Encourage IS/flutter HD stable. SR on the monitor refusing lab draws US guided thoracentesis with 250 cc drained May use own bipap at night PT/OT ambulate Discharge plan: home with who will help car e for him 4/6 Awake, alert. refuse lab draws. wants to go home HD stable. SR on the monitor . Room air, breathing comfortable CXR reviewed PT/OT ambulate Discharge plan: home with who will help car e for him Electronically Signed by Kevin Hinkle NP on 04/13 at 2345 RPT #:[id number] END OF REPORT 2020-12-28 20:04:00-00:00 [facility] Cardiothoracic Surgery Prog REPORT#:[id number] REPORT STATUS: Signed DATE:12/28/20 TIME: 2003 PATIENT: SONYA MINAYA UNIT #: [id number] ROOM/BED: [place] [address] : 53 AGE: 65 SEX: M ATTEND: Jae Jaffe MD ADM AUTHOR: Kevin Hinkle NP * ALL edits or amendments must be made on the [employer]/computer document * General Status post: 1. Coronary artery bypass graft surgery x4 (GAMING to LAD, saphenous vein to diagonal, saphenous vein to marginal, saphenous vein to PDA). 2. Pulmonary vein isolation. 3. Isolation of left atrial appendage. 4. Endoscopic vein harvesting (right greater s aphenous vein). Subjective Chief Complaint: follow up CABG Pain around chest tube site Review of Systems Constitutional: Denies: chills, fatigue, fever. Skin: Denies: rash, swelling. Eyes: Denies: redness, discharge. Respiratory: Denies: SOB, wheezing. Cardiovascular: Denies: chest pain. GI: Denies: nausea, vomiting. Musculoskeletal: Denies: joint pain, joint swelling. Objective Physical Exam HEENT: pupils reactive to light, sclera clear Cardiovascular: normal heart sounds, regular rat e rhythm Respiratory: aerating well, clear to auscultatio n Abdomen: soft, non-tender Genitourinary: no duran Extremities: dry, moves all Musculoskeletal: full range of motion 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 Sonya Minaya is a 65-year-old m rod with past medical history significant for diabetes, hypertension, CAD, A. fib(Xarelto), and sleep apnea who has been experiencing shortness of breath an d increased heart rate while walking only short distances. Patient also has b een having intermittent chest pain with one severe episode that woke him from sleep. 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 Cardiac work-up includ ed an echocardiogram which revealed EF 55 and mild TR. Patient underwent cardiac cathet erization today which demonstrated multivessel cor onary artery disease. CV surgery has been consulted to evaluate the need for CABG 1. Coronary artery bypass graft surgery x4 (GAMING to LAD, saphenous vein to diagonal, saphenous vein to marginal, saphenous vein to PDA). 2. Pulmonary vein isolation. 3. Isolation of left atrial appendage. 4. Endoscopic vein harvesting (right greater sap henous vein) 4/2 POD 1 Awake. alert, up in chair 2L NC with adequate sats. wean to keep sats>93% HD stable. SR on the monitor. De line. DC duran, neck line, a-line, IS/flutter. CXR reviewed. min chest tube output, dc'd left pleural now. reassessed ct output at 7pm(minimal then dcd mediastinal Bowel regimen PT/OT to ambulate Discharge plan is home with good support 4/3 Ambulate Encourage incentive spirometry Encourage p.o. Wean oxygen as tolerated Discharge planning 4/4 Wean oxygen as tolerated Ambulate Encourage incentive spirometry Discharge planning Probably home next 24 to 48 hours 4/5 Awake, alert, up in chair Room air. no distress. adequate sats. gets anxio us Encourage IS/flutter HD stable. SR on the monitor refusing lab draws US guided thoracentesis with 250 cc drained May use own bipap at night PT/OT ambulate Discharge plan: home with who will help car e for him 4/6 Awake, alert. refuse lab draws. wants to go home HD stable. SR on the monitor . Room air, breathing comfortable CXR reviewed PT/OT ambulate Discharge plan: home with who will help car e for him Electronically Signed by Kevin Hinkle NP on 04/13 at 2345 at 0029 RPT #:[id number] END OF REPORT 2020-12-28 14:18:00-00:00 [facility] ([facility]) Clinical Note REPORT#:[id number] REPORT STATUS: Signed DATE:12/28/20 TIME: 1418 PATIENT: SONYA MINAYA UNIT #: [id number] ROOM/BED: [place] [address] : 53 AGE: 65 SEX: M ATTEND: Jae Jaffe MD ADM AUTHOR: Jae Jaffe MD * ALL edits or amendments must be made on the [employer]/computer document * Clinical Note Note: 65-year-old male 1. Status post left heart cath revealing multive ssel coronary artery disease 2. Chest pain and dyspnea on exertion 3. Hypertension 4. Diabetes mellitus type 2 5. Dyslipidemia 6. Morbid obesity 4/5: Status post CABG x4, pain with ambulation, anxiety 4/6: Continue to wean oxygen as patient tolerate s We will continue with telemetry, BP control, gly cemic control, pain control, electrolyte control, DVT/GI prophylaxis, repeat labs Electronically Signed by Jae Jaffe MD o n 01/12/21 at 1342 RPT #:[id number] END OF REPORT 2020-12-28 11:15:00-00:00 [facility] ([facility]) Cardiology Progress Note REPORT#:[id number] REPORT STATUS: Signed DATE:12/28/20 TIME: 1115 PATIENT: SONYA MINAYA UNIT #: [id number] ROOM/BED: [place] [address] : [birth year] AGE: 65 SEX: M ATTEND: Jae Jaffe MD ADM AUTHOR: Ian Coronel MD * ALL edits or amendments must be made on the [employer]/computer document * Subjective Chief Complaint: NO MORE BLOOD TESTS Objective General VS/I O: 24 hour I O ending at 0700: 12/28 0700 04/05 1900 Intake Total 240 Output Total 750 Balance -510 Intake, Oral 240 Output, Urine 750 Vital Signs: Date Time Temp Pulse Resp B/P B/P Pulse O2 O2 F low FiO2 Mean Ox Delivery Rate 12/28 1056 98.2 79 16 129/78 95.0 93 Room air 12/28 0734 98.4 70 16 136/69 91.4 93 Room air 12/28 0619 98 Nasal 4 cannula 12/28 0348 98.1 64 20 130/75 93.1 98 12/27 2331 Nasal 2 cannula 12/27 2013 98.2 79 18 134/77 95.7 97 Room air 12/27 1738 98.8 73 16 135/74 94.6 98 Room air 12/27 1500 Nasal 2 cannula 12/27 1255 97.9 72 16 119/71 87.3 95 Room air PATIENT WEIGHT: Weight (lb): 294 Weight (oz): 15.66 Weight (kg): 133.800 Medications: Active Meds + DC'd Last 24 Hrs Insulin Glargine 15 UNIT BEDTIME SUBQ Insulin Human Lispro 5 UNIT AC SUBQ Amiodarone HCl 400 MG BID PO (CKD) Metoprolol Tartrate 25 MG Q12HR PO Cyanocobalamin 500 MCG DAILY PO Ferrous Sulfate 325 MG DAILY PO Bisacodyl 10 MG ONCE PRN RECTAL Fluticasone Propionate 1 SPRAY DAILY NASAL (CKD) Guaifenesin 600 MG Q12HR PO Hydralazine HCl 10 MG Q6H PRN PRN IV Sodium Chloride 0 ASDIR PRN IV Levalbuterol HCl 0.63 MG RTQ4H PRN PRN INH Loratadine 10 MG DAILY PRN PRN PO Atorvastatin Calcium 40 MG 2100 PO Insulin Human Lispro 0 AC HS SUBQ Clopidogrel Bisulfate 75 MG DAILY PO Polyethylene Glycol 17 GM DAILY PO Sodium Chloride 10 ML ASDIR IV Docusate Sodium 100 MG BID PO Senna 2 TAB BEDTIME PO (CKD) Mupirocin 1 APPLIC BID NASAL (DC) Acetaminophen 650 MG Q4H PRN PRN PO Dextrose/Water 25 ML ASDIR PRN IV (CKD) Dextrose/Water 50 ML ASDIR PRN IV (CKD) Glucagon 1 MG ASDIR PRN IM Magnesium Sulfate 100 ML ASDIR PRN IV Magnesium Sulfate 50 ML ASDIR PRN IV Magnesium Sulfate/Dextrose 100 ML ASDIR PRN IV Ondansetron HCl 4 MG Q6H PRN PRN IV Oxycodone HCl 5 MG Q4H PRN PRN PO Oxycodone HCl 10 MG Q4H PRN PRN PO Paroxetine HCl 40 MG DAILY PO Pantoprazole 40 MG DAILY@0600 PO Physical Exam General appearance: alert, awake Head/Eyes: atraumatic, PERRL Neck: full range of motion, non-tender, normal thyroid, supple/no meningismus, no bruit/NL carotids, no JVD, no lymphadenopathy , no masses or swelling Cardiovascular: CV assessment: regular rate and rhythm Respiratory: clear to auscultation, no distress Abdomen: non-tender, normal bowel sounds , no distention, no guarding, no mass/ organomegaly, no pulsatile mass, no rebound Upper extremity: UE assessment: normal capillary refill, no luis armando a 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 Skin: dry, intact Diagnosis, Assessment Plan Free Text DxA P Notes Free Text DxA P Notes: 1. Severe LM and three vessel CAD: S/P CABG post-op per CTS no longer on bipap, breathing improved b ut went into afib today- IV amiodarone started for 24 hours with po bb- monitor will give more lasix today as well asa, plavix, statin, bb 2. Obesity 3.Atrial Fib: Will change to PO Amiod 4. Hyperlipedemia 5. NIDDM 6. Sleesp apnea Electronically Signed by Ian Coronel MD on 03/14 at 1116 RPT #:[id number] END OF REPORT 2020-12-27 23:05:00-00:00 [facility] Internal Medicine Prog. Note REPORT#:[id number] REPORT STATUS: Signed DATE:12/27/20 TIME: 2304 PATIENT: SONYA MINAYA UNIT #: [id number] ROOM/BED: [facility] [place]-1 : 53 AGE: 65 SEX: M ATTEND: Jae Jaffe MD ADM AUTHOR: Junie Yu NP * ALL edits or amendments must be made on the [employer]/computer document * Subjective Chief Complaint: Visit coronary artery disease Status post CABG x4 Review of Systems Constitutional: Denies: chills, fever. ENT: Reports: sore throat. Denies: earache, nasal con gestion. Respiratory: Reports: FREEMAN (dyspnea on exe rtion). Denies: hemoptysis, parox nocturnal dyspnea , pleurisy, pleuritic pain, pneumonia, SOB, whee zing. Cardiovascular: Reports: chest pain. Denies: palpitations. GI: Denies: abdominal pain, nausea, vomiting. : Reports: other. Musculoskeletal: Reports: extremity pain, extremity swelling. Den ies: joint pain, lumbar pain, neck pain. Neuro: Denies: focal weakness, headache, slurred speech . Psych: Denies: agitation, anxiety, auditory hallucinati on, change in mental status, confusion, delusional, depre ssion, homicidal ideation, hostile, insomnia, stress , suicidal ideation, visual hallucination. Objective General VS/I O: Laboratory Tests 12/25 0613 Blood Gas Puncture Site R Radial Vivek Test Positive VBG pH (7.33 - 7.45) 7.530 H VBG pCO2 (43 - 47 mmHg) 26.0 *L VBG pO2 (10 - 50 mmHG) 59.7 H VBG HCO3 (22 - 27 MMOL/L) 21.7 L POC VBG Total CO2 22.5 VBG O2 Saturation (60 - 80 %) 93.7 H VBG Base Excess (-4.0 - 4.0 MMOL/L) -1.0 VBG Temperature (F) 98.6 Respiration Rate (/MIN) 20 O2 Delivery Device [id number] FiO2 (%) 100 Laboratory Tests 12/27 12/27 12/27 12/26 12/26 1617 1229 0852 2122 1642 Chemistry POC Glucose (70 - 110 MG/DL) 204 H 340 H 238 H 197 H 278 H 12/26 12/26 12/26 12/26 12/25 1635 1135 0743 0520 2023 Chemistry Sodium (134 - 147 mEq/L) 138 Potassium (3.4 - 5.0 mEq/L) 3.4 Chloride (100 - 108 mEq/L) 103 Carbon Dioxide (21 - 33 mEq/l) 24 Anion Gap (0 - 20) 14 BUN (7 - 18 mg/dL) 13 Creatinine (0.6 - 1.3 mg/dL) 0.8 Glomerular Filtr Rate (80 - 90) 96.4 H Glucose (70 - 110 mg/dL) 149 H POC Glucose (70 - 110 MG/DL) 307 H 192 H 176 H 153 H Calcium (8.0 - 10.5 mg/dL) 8.6 Magnesium (1.80 - 2.40 mg/dL) 1.96 Total Bilirubin (0.0 - 1.0 mg/dL) 0.70 Direct Bilirubin (0.0 - 0.30 MG/DL) 0.30 Indirect Bilirubin (MG/DL) 0.40 AST (15 - 37 IUnit/L) 35 ALT (30 - 65 IUnit/L) 17 L Total Alk Phosphatase (20 - 125 54 IUnit/L) Total Protein (6.4 - 8.2 g/dL) 6.2 L Albumin (3.4 - 5.0 g/dL) 3.20 L 12/25 12/25 12/25 12/25 1615 1143 0809 0340 Chemistry Sodium (134 - 147 mEq/L) 137 Potassium (3.4 - 5.0 mEq/L) 3.8 Chloride (100 - 108 mEq/L) 105 Carbon Dioxide (21 - 33 mEq/l) 23 Anion Gap (0 - 20) 13 BUN (7 - 18 mg/dL) 11 Creatinine (0.6 - 1.3 mg/dL) 0.9 Glomerular Filtr Rate (80 - 90) 84.2 Glucose (70 - 110 mg/dL) 183 H POC Glucose (70 - 110 MG/DL) 187 H 207 H 176 H Calcium (8.0 - 10.5 mg/dL) 8.6 Magnesium (1.80 - 2.40 mg/dL) 2.17 Total Bilirubin (0.0 - 1.0 mg/dL) 0.80 Direct Bilirubin (0.0 - 0.30 MG/DL) 0.40 H Indirect Bilirubin (MG/DL) 0.40 AST (15 - 37 IUnit/L) 64 H ALT (30 - 65 IUnit/L) 18 L Total Alk Phosphatase (20 - 125 IUnit/L) 42 Total Protein (6.4 - 8.2 g/dL) 6.0 L Albumin (3.4 - 5.0 g/dL) 3.50 Laboratory Tests 12/26 12/25 0520 0340 Hematology WBC (4.5 - 11.0 x10 3/uL) 10.0 10.8 RBC (4.00 - 5.60 x10 6/uL) 3.32 L 3.42 L Hgb (12.5 - 16.9 g/dL) 9.4 L 9.7 L Hct (37.5 - 50.7 %) 30.3 L 30.6 L MCV (81.0 - 99.0 fL) 91.3 89.5 MCH (27.0 - 33.0 pg) 28.3 28.4 MCHC (33.0 - 37.0 g/dL) 31.0 L 31.7 L RDW (11.5 - 14.5 %) 15.3 H 15.9 H Plt Count (150 - 400 x10 3/uL) 172 149 L MPV (7.0 - 9.0 fL) 11.2 H 11.2 H Neut % (Auto) (56.0 - 77.0 %) 77.0 79.3 H Lymph % (Auto) (14.0 - 32.0 %) 14.2 11.8 L [place] % (Auto) (4.8 - 9.0 %) 7.5 8.1 Eos % (Auto) (0.3 - 3.7 %) 0.2 L 0.0 L Baso % (Auto) (0.0 - 2.0 %) 0.3 0.3 Neut # (Auto) (2.0 - 7.6 x10 3/uL) 7.73 H 8.57 H Lymph # (Auto) (1.0 - 3.8 x10 3/uL) 1.43 1.27 [place] # (Auto) (0.1 - 0.8 x10 3/uL) 0.75 0.88 H Eos # (Auto) (0.0 - 0.2 x10 3/uL) 0.02 0.00 Baso # (Auto) (0.0 - 0.2 x10 3/uL) 0.03 0.03 Abs Immat Gran (auto) (0.00 - 0.03 x10 3/uL) 0. 08 H 0.05 H Add Manual Diff NO NO Immature Gran % (0.0 - 2.0 %) 0.8 0.5 Nucleated RBC % (0 - 0 %) 0.0 0.0 Nucleated RBCs # (Man) (0.0 - 0.1 x10 3/uL) 0.0 0 0.00 Chemistry: 12/27 12/27 12/27 1617 1229 0852 Chemistry POC Glucose (70 - 110 MG/DL) 204 H 340 H 238 H Vital Signs: Date Time Temp Pulse Resp B/P B/P Pulse O2 O2 F low FiO2 Mean Ox Delivery Rate 12/27 2013 36.8 79 18 134/77 95.7 97 Room air 12/27 1738 37.1 73 16 135/74 94.6 98 Room air 12/27 1500 Nasal 2 cannula 12/27 1255 36.6 72 16 119/71 87.3 95 Room air 12/27 0829 37.0 83 16 124/65 84.6 93 Room air 12/27 0433 36.7 65 20 131/80 97.0 98 Room air 12/27 0101 97 Nasal 4.5 cannula 12/26 2323 36.9 60 16 105/65 78 96 Nasal 3 cannula 12/27 0700 12/26 2300 12/26 1500 Intake Total 317.00 233.20 418 Output Total 635 175 790 Balance -318.00 58.20 -372 Intake, IV 217.00 233.20 Intake, Oral 100 418 Number 1 Bowel Movements Number Voids 1 3 Output, Urine 635 175 790 Patient 133.8 kg Weight Weight Standing scale Measurement Method Current Medications Sig/Jero Start time Last Medication Dose Route Stop Time Status Admin Insulin Glargine 15 UNIT BEDTIME 12/27 2100 AC 12/27 SUBQ 01/26 Insulin Human Lispro 5 UNIT AC 12/27 163 AC SUBQ 01/26 1629 1713 Amiodarone HCl 400 MG BID 12/27 0900 CKD 12/27 PO 01/26 0859 2137 Amiodarone HCl 200 ML ASDIR 12/26 1215 DC 12/27 IV 01/25 1214 0642 Metoprolol Tartrate 25 MG Q12HR 12/26 1215 AC 0 12/27 PO 01/25 1214 2136 Cyanocobalamin 500 MCG DAILY 12/26 0900 AC 04/ 5 PO 01/25 0859 0943 Ferrous Sulfate 325 MG DAILY 12/26 0900 AC PO 01/25 0859 0942 Bisacodyl 10 MG ONCE PRN 12/25 1200 AC RECTAL 01/24 1159 Fluticasone 1 SPRAY DAILY 12/25 09 CKD 12/27 Propionate NASAL 01/24 0859 0945 Guaifenesin 600 MG Q12HR 12/25 0900 AC 12/27 PO 01/24 0859 2137 Hydralazine HCl 10 MG Q6H PRN PRN 12/25 0645 AC IV 01/24 0644 Sodium Chloride 0 ASDIR PRN 12/25 0645 AC IV 01/24 0644 Levalbuterol HCl 0.63 MG RTQ4H PRN PRN 12/25 04 30 AC 12/25 INH 01/24 0429 0551 Loratadine 10 MG DAILY PRN PRN 12/25 0430 AC PO 01/24 0429 1138 Atorvastatin Calcium 40 MG 2100 12/24 2100 AC 12/27 PO 01/23 2059 213 Insulin Human Lispro 0 AC HS 12/24 1630 AC 5 SUBQ 01/23 1629 1712 Clopidogrel Bisulfate 75 MG DAILY 12/24 0900 AC 12/27 PO 01/23 0859 0945 Polyethylene Glycol 17 GM DAILY 12/24 0900 AC 0 12/27 PO 01/23 0859 0942 Sodium Chloride 10 ML ASDIR 12/24 08 AC IV 01/23 0759 Docusate Sodium 100 MG BID 12/23 2100 AC 12/26 PO 01/22 2059 2129 Senna 2 TAB BEDTIME 12/23 2100 CKD 12/24 PO 01/22 205 2049 Amiodarone HCl 200 MG TID 12/23 1500 DC 12/26 PO 01/22 1459 2129 Mupirocin 1 APPLIC BID 12/23 1300 DC 12/27 NASAL 12/27 210 2136 Acetaminophen 650 MG Q4H PRN PRN 12/23 1130 AC 12/24 PO 01/22 1129 2212 Dextrose/Water 25 ML ASDIR PRN 12/23 1130 CKD IV 01/22 1129 Dextrose/Water 50 ML ASDIR PRN 12/23 1130 CKD IV 01/22 1129 Glucagon 1 MG ASDIR PRN 12/23 1130 AC IM 01/22 1129 Magnesium Sulfate 100 ML ASDIR PRN 12/23 1130 A C IV 01/22 1129 Magnesium Sulfate 50 ML ASDIR PRN 12/23 1130 A C 12/24 IV 01/22 1129 0448 Magnesium Sulfate/ 100 ML ASDIR PRN 12/23 1130 AC Dextrose IV 01/22 1129 Ondansetron HCl 4 MG Q6H PRN PRN 12/23 1130 AC IV 01/22 1129 Oxycodone HCl 5 MG Q4H PRN PRN 12/23 1130 AC 0 12/26 PO 12/28 1129 0005 Oxycodone HCl 10 MG Q4H PRN PRN 12/23 1130 AC 12/26 PO 12/28 1129 2130 Paroxetine HCl 40 MG DAILY 12/23 0900 AC 12/27 PO 01/22 0859 0943 Pantoprazole 40 MG DAILY@0600 12/23 0600 AC PO 01/22 0559 0523 Recent Impressions-Last 72 Hrs RADIOLOGY - XR CHEST 1 V 12/25 0704 Report Impression - Status: SIGNED Entered: 12/25/2020 0810 IMPRESSION: 1. Removal of right jugular line. 2. Otherwise stable chest. SL: [id number] Impression By: Charles Diaz RADIOLOGY - XR CHEST 1 V 12/26 07 Report Impression - Status: SIGNED Entered: 12/26/2020 0957 IMPRESSION: Stable chest. SL: [id number] Impression By: Charles Diaz RADIOLOGY - XR CHEST 1 V 12/27 0540 Report Impression - Status: SIGNED Entered: 12/27/2020 0827 IMPRESSION: Lines, tubes and hardware: Prior sternotomy salgado ges. Heart, mediastinum and lungs: Heart and hilar va sculature is stable. Right lung remains clear. Unchanged moderate lay ering left effusion with underlying airspace disease. SL: [id number] Impression By: [email or web address] Chelsy Crews D.O. ULTRASOUND - US THORACENTESIS W/IMAG 12/27 1445 Report Impression - Status: SIGNED Entered: 12/27/2020 1520 IMPRESSION: 1. Technically successful ultrasound-guided thor acentesis. Impression By: Pankaj Crews D.O. RADIOLOGY - XR CHEST 1 V 12/27 1455 Report Impression - Status: SIGNED Entered: 12/27/2020 1507 IMPRESSION: Lines, tubes and hardware: Prior sternotomy salgado ges. Heart, mediastinum and lungs: Heart and hilar va sculature is stable. Right lung remains clear. Improvement in layerin g left effusion with underlying airspace disease. No left pneumothora x is seen. SL: [id number] Impression By: Pankaj Crews D.O. Vital Signs Date Temp Pulse Resp B/P B/P Mean Pulse Ox FiO2 12/26-12/27 36.6-37.1 60-83 16-20 105-135/65-80 78-97.0 93-98 Last Documented: Result Date Time Pulse Ox 97 12/27 2013 B/P 134/77 12/27 2013 B/P Mean 95.7 12/27 2013 O2 Delivery Room air 12/27 2013 Temp 36.8 12/27 2013 Pulse 79 12/27 2013 Resp 18 12/27 2013 O2 Flow Rate 2 12/27 1500 FiO2 40 12/25 1457 24 hour I O ending at 0700: 12/27 0700 12/26 1900 Intake Total 317.00 651.20 Output Total 635 965 Balance -318.00 -313.80 Intake, IV 217.00 233.20 Intake, Oral 100 418 Number 1 Bowel Movements Number Voids 4 Output, Urine 635 965 Patient 133.8 kg Weight Weight Standing scale Measurement Method PATIENT WEIGHT: Weight (lb): 294 Weight (oz): 15.66 Weight (kg): 133.800 Physical Exam General appearance: alert, awake Neck: no JVD Cardiovascular: regular rate rhythm Respiratory: decreased breath sounds, on oxygen Abdomen: normal bowel sounds, soft Genitourinary: no CVA tenderness Extremities: Extremities: decreased range of motion, edema 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 Patient und erwent the procedure well but needing coronary artery bypass graft due to mult iple vessel disease. 1. Status post left heart cath revealing multive ssel coronary artery disease 2. Chest pain/dyspnea on exertion 3. Hypertension 4. Diabetes mellitus type 2 5. Dyslipidemia statin 6. Morbid obesity 12/23/2020: Status post CABG x4 Patient postop Is awake complaining of pain Chest tubes x2 Duran catheter to bedside drainage No pressors December 24, 2020 Patient out of bed Transferred to CVN 1 12/25/20 Patient notes that he is feeling fatigued and borden ving too much pain with ambulation Encourage ambulation and incentive spirometer Work with PT/OT We will discharge once cleared by cardiothoracic team 12/26/20 Patient with some anxiety Complains of shortness of breath when laying alirio n More comfortable sitting on a recliner December 27, 2020: Continue with present care Continue with diuretics Consultants eval noted Plan of care: Keep patient on telemetry Continue to monitor closely Glycemic control -SS we will add Lantus in a.m. DVT prophylaxis Lovenox Continue with current medications Repeat labs Pain control Continue with PT/OT We will repeat chest x-ray to evaluate for fluid overload Plan of care discussed with the patient, patient 's nurse, and Dr. Underwood. Electronically Signed by Junie Yu NP on 0 02/07/21 at 0635 RPT #:[id number] END OF REPORT 2020-12-27 23:05:00-00:00 [facility] Note REPORT#:[id number] REPORT STATUS: Signed DATE:12/27/20 TIME: 2304 PATIENT: SONYA MINAYA UNIT #: [id number] ROOM/BED: 3363-1 : 53 AGE: 65 SEX: M ATTEND: Jae Jaffe MD ADM AUTHOR: Junie Yu NP * ALL edits or amendments must be made on the [employer]/computer document * Subjective Chief Complaint: Visit coronary artery disease Status post CABG x4 Review of Systems Constitutional: Denies: chills, fever. ENT: Reports: sore throat. Denies: earache, nasal con gestion. Respiratory: Reports: FREEMAN (dyspnea on exe rtion). Denies: hemoptysis, parox nocturnal dyspnea , pleurisy, pleuritic pain, pneumonia, SOB, whee zing. Cardiovascular: Reports: chest pain. Denies: palpitations. GI: Denies: abdominal pain, nausea, vomiting. : Reports: other. Musculoskeletal: Reports: extremity pain, extremity swelling. Den ies: joint pain, lumbar pain, neck pain. Neuro: Denies: focal weakness, headache, slurred speech . Psych: Denies: agitation, anxiety, auditory hallucinati on, change in mental status, confusion, delusional, depre ssion, homicidal ideation, hostile, insomnia, stress , suicidal ideation, visual hallucination. Objective General VS/I O: Laboratory Tests 12/25 06 Blood Gas Puncture Site R Radial Vivek Test Positive VBG pH (7.33 - 7.45) 7.530 H VBG pCO2 (43 - 47 mmHg) 26.0 *L VBG pO2 (10 - 50 mmHG) 59.7 H VBG HCO3 (22 - 27 MMOL/L) 21.7 L POC VBG Total CO2 22.5 VBG O2 Saturation (60 - 80 %) 93.7 H VBG Base Excess (-4.0 - 4.0 MMOL/L) -1.0 VBG Temperature (F) 98.6 Respiration Rate (/MIN) 20 O2 Delivery Device [id number] FiO2 (%) 100 Laboratory Tests 12/27 12/27 12/27 12/26 12/26 1617 1229 0852 2122 1642 Chemistry POC Glucose (70 - 110 MG/DL) 204 H 340 H 238 H 197 H 278 H 12/26 12/26 12/26 12/26 12/25 1635 1135 0743 0520 2022 Chemistry Sodium (134 - 147 mEq/L) 138 Potassium (3.4 - 5.0 mEq/L) 3.4 Chloride (100 - 108 mEq/L) 103 Carbon Dioxide (21 - 33 mEq/l) 24 Anion Gap (0 - 20) 14 BUN (7 - 18 mg/dL) 13 Creatinine (0.6 - 1.3 mg/dL) 0.8 Glomerular Filtr Rate (80 - 90) 96.4 H Glucose (70 - 110 mg/dL) 149 H POC Glucose (70 - 110 MG/DL) 307 H 192 H 176 H 153 H Calcium (8.0 - 10.5 mg/dL) 8.6 Magnesium (1.80 - 2.40 mg/dL) 1.96 Total Bilirubin (0.0 - 1.0 mg/dL) 0.70 Direct Bilirubin (0.0 - 0.30 MG/DL) 0.30 Indirect Bilirubin (MG/DL) 0.40 AST (15 - 37 IUnit/L) 35 ALT (30 - 65 IUnit/L) 17 L Total Alk Phosphatase (20 - 125 54 IUnit/L) Total Protein (6.4 - 8.2 g/dL) 6.2 L Albumin (3.4 - 5.0 g/dL) 3.20 L 12/25 12/25 12/25 12/25 1615 1143 0809 0340 Chemistry Sodium (134 - 147 mEq/L) 137 Potassium (3.4 - 5.0 mEq/L) 3.8 Chloride (100 - 108 mEq/L) 105 Carbon Dioxide (21 - 33 mEq/l) 23 Anion Gap (0 - 20) 13 BUN (7 - 18 mg/dL) 11 Creatinine (0.6 - 1.3 mg/dL) 0.9 Glomerular Filtr Rate (80 - 90) 84.2 Glucose (70 - 110 mg/dL) 183 H POC Glucose (70 - 110 MG/DL) 187 H 207 H 176 H Calcium (8.0 - 10.5 mg/dL) 8.6 Magnesium (1.80 - 2.40 mg/dL) 2.17 Total Bilirubin (0.0 - 1.0 mg/dL) 0.80 Direct Bilirubin (0.0 - 0.30 MG/DL) 0.40 H Indirect Bilirubin (MG/DL) 0.40 AST (15 - 37 IUnit/L) 64 H ALT (30 - 65 IUnit/L) 18 L Total Alk Phosphatase (20 - 125 IUnit/L) 42 Total Protein (6.4 - 8.2 g/dL) 6.0 L Albumin (3.4 - 5.0 g/dL) 3.50 Laboratory Tests 12/26 04/ 0520 0340 Hematology WBC (4.5 - 11.0 x10 3/uL) 10.0 10.8 RBC (4.00 - 5.60 x10 6/uL) 3.32 L 3.42 L Hgb (12.5 - 16.9 g/dL) 9.4 L 9.7 L Hct (37.5 - 50.7 %) 30.3 L 30.6 L MCV (81.0 - 99.0 fL) 91.3 89.5 MCH (27.0 - 33.0 pg) 28.3 28.4 MCHC (33.0 - 37.0 g/dL) 31.0 L 31.7 L RDW (11.5 - 14.5 %) 15.3 H 15.9 H Plt Count (150 - 400 x10 3/uL) 172 149 L MPV (7.0 - 9.0 fL) 11.2 H 11.2 H Neut % (Auto) (56.0 - 77.0 %) 77.0 79.3 H Lymph % (Auto) (14.0 - 32.0 %) 14.2 11.8 L [place] % (Auto) (4.8 - 9.0 %) 7.5 8.1 Eos % (Auto) (0.3 - 3.7 %) 0.2 L 0.0 L Baso % (Auto) (0.0 - 2.0 %) 0.3 0.3 Neut # (Auto) (2.0 - 7.6 x10 3/uL) 7.73 H 8.57 H Lymph # (Auto) (1.0 - 3.8 x10 3/uL) 1.43 1.27 [place] # (Auto) (0.1 - 0.8 x10 3/uL) 0.75 0.88 H Eos # (Auto) (0.0 - 0.2 x10 3/uL) 0.02 0.00 Baso # (Auto) (0.0 - 0.2 x10 3/uL) 0.03 0.03 Abs Immat Gran (auto) (0.00 - 0.03 x10 3/uL) 0. 08 H 0.05 H Add Manual Diff NO NO Immature Gran % (0.0 - 2.0 %) 0.8 0.5 Nucleated RBC % (0 - 0 %) 0.0 0.0 Nucleated RBCs # (Man) (0.0 - 0.1 x10 3/uL) 0.0 0 0.00 Chemistry: 12/27 12/27 12/27 1617 1229 0852 Chemistry POC Glucose (70 - 110 MG/DL) 204 H 340 H 238 H Vital Signs: Date Time Temp Pulse Resp B/P B/P Pulse O2 O2 F low FiO2 Mean Ox Delivery Rate 12/27 2013 36.8 79 18 134/77 95.7 97 Room air 12/27 1738 37.1 73 16 135/74 94.6 98 Room air 12/27 1500 Nasal 2 cannula 12/27 1255 36.6 72 16 119/71 87.3 95 Room air 12/27 0829 37.0 83 16 124/65 84.6 93 Room air 12/27 0433 36.7 65 20 131/80 97.0 98 Room air 12/27 0101 97 Nasal 4.5 cannula 12/26 2323 36.9 60 16 105/65 78 96 Nasal 3 cannula 12/27 0700 12/26 2300 12/26 1500 Intake Total 317.00 233.20 418 Output Total 635 175 790 Balance -318.00 58.20 -372 Intake, IV 217.00 233.20 Intake, Oral 100 418 Number 1 Bowel Movements Number Voids 1 3 Output, Urine 635 175 790 Patient 133.8 kg Weight Weight Standing scale Measurement Method Current Medications Sig/Jero Start time Last Medication Dose Route Stop Time Status Admin Insulin Glargine 15 UNIT BEDTIME 12/27 2100 AC 12/27 SUBQ 01/26 Insulin Human Lispro 5 UNIT AC 12/27 1630 AC SUBQ 01/26 1629 1713 Amiodarone HCl 400 MG BID 12/27 899 CKD 12/27 PO 01/27 0859 213 Amiodarone HCl 200 ML ASDIR 12/26 1215 DC 5 IV 01/25 1214 0642 Metoprolol Tartrate 25 MG Q12HR 12/26 1215 AC 0 12/27 PO 01/25 121 213 Cyanocobalamin 500 MCG DAILY 12/26 899 AC 040 5 PO 01/26 0859 0943 Ferrous Sulfate 325 MG DAILY 12/26 899 AC 04/0 5 PO 01/25 0859 0942 Bisacodyl 10 MG ONCE PRN 12/25 1200 AC RECTAL 01/24 1159 Fluticasone 1 SPRAY DAILY 12/25 09 CKD 12/27 Propionate NASAL 01/24 0859 0945 Guaifenesin 600 MG Q12HR 12/25 0900 AC 12/27 PO 01/24 0859 2137 Hydralazine HCl 10 MG Q6H PRN PRN 12/25 0645 AC IV 01/24 0644 Sodium Chloride 0 ASDIR PRN 12/25 0645 AC IV 01/24 0644 Levalbuterol HCl 0.63 MG RTQ4H PRN PRN 12/25 04 30 AC 12/25 INH 01/24 0429 0551 Loratadine 10 MG DAILY PRN PRN 12/25 0430 AC PO 01/24 0429 1138 Atorvastatin Calcium 40 MG 2100 12/24 2100 AC 0 12/27 PO 01/23 2059 2135 Insulin Human Lispro 0 AC HS 12/24 1630 AC 5 SUBQ 01/23 1629 1712 Clopidogrel Bisulfate 75 MG DAILY 12/24 09 AC 12/27 PO 01/23 0859 0945 Polyethylene Glycol 17 GM DAILY 12/24 09 AC 0 12/27 PO 01/23 0859 0942 Sodium Chloride 10 ML ASDIR 12/24 08 AC IV 01/23 0759 Docusate Sodium 100 MG BID 12/23 2100 AC 12/26 PO 01/22 205 2129 Senna 2 TAB BEDTIME 12/23 2100 CKD 12/24 PO 01/22 205 204 Amiodarone HCl 200 MG TID 12/23 1500 DC 12/26 PO 01/22 1459 2129 Mupirocin 1 APPLIC BID 12/23 1300 DC 12/27 NASAL 12/27 2101 2136 Acetaminophen 650 MG Q4H PRN PRN 12/23 1130 AC 12/24 PO 01/22 1129 2212 Dextrose/Water 25 ML ASDIR PRN 12/23 1130 CKD IV 01/22 1129 Dextrose/Water 50 ML ASDIR PRN 12/23 1130 CKD IV 01/22 1129 Glucagon 1 MG ASDIR PRN 12/23 1130 AC IM 01/22 1129 Magnesium Sulfate 100 ML ASDIR PRN 12/23 1130 A C IV 01/22 1129 Magnesium Sulfate 50 ML ASDIR PRN 12/23 1130 AC 04/02 IV 01/22 1129 0448 Magnesium Sulfate/ 100 ML ASDIR PRN 12/23 1130 AC Dextrose IV 01/22 1129 Ondansetron HCl 4 MG Q6H PRN PRN 12/23 1130 AC IV 01/22 1129 Oxycodone HCl 5 MG Q4H PRN PRN 12/23 1130 AC PO 12/28 1129 0005 Oxycodone HCl 10 MG Q4H PRN PRN 12/23 1130 AC 12/26 PO 12/28 1129 2130 Paroxetine HCl 40 MG DAILY 12/23 0900 AC 12/27 PO 01/22 0859 0943 Pantoprazole 40 MG DAILY@0600 12/23 0600 AC PO 01/22 0559 0523 Recent Impressions-Last 72 Hrs RADIOLOGY - XR CHEST 1 V 12/25 07 Report Impression - Status: SIGNED Entered: 12/25/2020 0810 IMPRESSION: 1. Removal of right jugular line. 2. Otherwise stable chest. SL: [id number] Impression By: Charles Diaz RADIOLOGY - XR CHEST 1 V 12/26 0704 Report Impression - Status: SIGNED Entered: 12/26/2020 0957 IMPRESSION: Stable chest. SL: [id number] Impression By: Charles Diaz RADIOLOGY - XR CHEST 1 V 12/27 0540 Report Impression - Status: SIGNED Entered: 12/27/2020 0827 IMPRESSION: Lines, tubes and hardware: Prior sternotomy salgado ges. Heart, mediastinum and lungs: Heart and hilar va sculature is stable. Right lung remains clear. Unchanged moderate lay ering left effusion with underlying airspace disease. SL: [id number] Impression By: [email or web address] Chelsy Crews D.O. ULTRASOUND - US THORACENTESIS W/IMAG 12/27 1445 Report Impression - Status: SIGNED Entered: 12/27/2020 1520 IMPRESSION: 1. Technically successful ultrasound-guided thor acentesis. Impression By: Pankaj Crews D.O. RADIOLOGY - XR CHEST 1 V 12/27 1455 Report Impression - Status: SIGNED Entered: 12/27/2020 1507 IMPRESSION: Lines, tubes and hardware: Prior sternotomy salgado ges. Heart, mediastinum and lungs: Heart and hilar va sculature is stable. Right lung remains clear. Improvement in layerin g left effusion with underlying airspace disease. No left pneumothora x is seen. SL: [id number] Impression By: Pankaj Crews D.O. Vital Signs Date Temp Pulse Resp B/P B/P Mean Pulse Ox FiO2 12/26-12/27 36.6-37.1 60-83 16-20 105-135/65-80 78-97.0 93-98 Last Documented: Result Date Time Pulse Ox 97 12/27 2013 B/P 134/77 12/27 2013 B/P Mean 95.7 12/27 2013 O2 Delivery Room air 12/27 2013 Temp 36.8 12/27 2013 Pulse 79 12/27 2013 Resp 18 12/27 2013 O2 Flow Rate 2 12/27 1500 FiO2 40 12/25 1457 24 hour I O ending at 0700: 12/27 0700 12/26 1900 Intake Total 317.00 651.20 Output Total 635 965 Balance -318.00 -313.80 Intake, IV 217.00 233.20 Intake, Oral 100 418 Number 1 Bowel Movements Number Voids 4 Output, Urine 635 965 Patient 133.8 kg Weight Weight Standing scale Measurement Method PATIENT WEIGHT: Weight (lb): 294 Weight (oz): 15.66 Weight (kg): 133.800 Physical Exam General appearance: alert, awake Neck: no JVD Cardiovascular: regular rate rhythm Respiratory: decreased breath sounds, on oxygen Abdomen: normal bowel sounds, soft Genitourinary: no CVA tenderness Extremities: Extremities: decreased range of motion, edema 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 Patient und erwent the procedure well but needing coronary artery bypass graft due to mult iple vessel disease. 1. Status post left heart cath revealing multive ssel coronary artery disease 2. Chest pain/dyspnea on exertion 3. Hypertension 4. Diabetes mellitus type 2 5. Dyslipidemia statin 6. Morbid obesity 12/23/2020: Status post CABG x4 Patient postop Is awake complaining of pain Chest tubes x2 Duran catheter to bedside drainage No pressors December 24, 2020 Patient out of bed Transferred to CVN 1 12/25/20 Patient notes that he is feeling fatigued and borden ving too much pain with ambulation Encourage ambulation and incentive spirometer Work with PT/OT We will discharge once cleared by cardiothoracic team 12/26/20 Patient with some anxiety Complains of shortness of breath when laying alirio n More comfortable sitting on a recliner December 27, 2020: Continue with present care Continue with diuretics Consultants eval noted Plan of care: Keep patient on telemetry Continue to monitor closely Glycemic control -SS we will add Lantus in a.m. DVT prophylaxis Lovenox Continue with current medications Repeat labs Pain control Continue with PT/OT We will repeat chest x-ray to evaluate for fluid overload Plan of care discussed with the patient, patient 's nurse, and Dr. Underwood. Electronically Signed by Junie Yu MEDICINE ASSISTANT on 0 02/07/21 at 0635 Electronically Signed by Jae Jaffe MD o n 02/08/21 at 0837 RPT #:[id number] END OF REPORT 2020-12-27 20:17:00-00:00 [facility]) Clinical Note REPORT#:[id number] REPORT STATUS: Signed DATE:12/27/20 TIME: 2016 PATIENT: SONYA MINAYA UNIT #: [id number] ROOM/BED: [address] : 53 AGE: 65 SEX: M ATTEND: Jae Jaffe MD ADM AUTHOR: Jae Jaffe MD * ALL edits or amendments must be made on the el [employer]/computer document * Clinical Note Note: 65-year-old male 1. Status post left heart cath revealing multive ssel coronary artery disease 2. Chest pain and dyspnea on exertion 3. Hypertension 4. Diabetes mellitus type 2 5. Dyslipidemia 6. Morbid obesity Status post CABG x4 pain with ambulation anxiety We will continue with telemetry, BP control, gly cemic control, pain control, electrolyte control, DVT/GI prophylaxis, repeat labs. Electronically Signed by Jae Jaffe MD 01/12/21 at 1342 RPT #:[id number] END OF REPORT 2020-12-27 18:48:00-00:00 [facility] ([facility] Cardiothoracic Surgery Prog REPORT#:[id number] REPORT STATUS: Signed DATE:12/27/20 TIME: 1847 PATIENT: SONYA MINAYA UNIT #: [id number] ROOM/BED: [place] [address] : 53 AGE: 65 SEX: M ATTEND: Jae Jaffe MD ADM AUTHOR: Kevin Hinkle NP * ALL edits or amendments must be made on the [employer]/computer document * General Status post: 1. Coronary artery bypass graft surgery x4 (GAMING to LAD, saphenous vein to diagonal, saphenous vein to marginal, saphenous vein to PDA). 2. Pulmonary vein isolation. 3. Isolation of left atrial appendage. 4. Endoscopic vein harvesting (right greater sa phenous vein). Subjective Chief Complaint: follow up CABG Pain around chest tube site Review of Systems Constitutional: Denies: chills, fatigue, fever. Skin: Denies: rash, swelling. Eyes: Denies: redness, discharge. Respiratory: Denies: SOB, wheezing. Cardiovascular: Denies: chest pain. GI: Denies: nausea, vomiting. Musculoskeletal: Denies: joint pain, joint swelling. Objective Physical Exam HEENT: pupils reactive to light, sclera clear Cardiovascular: normal heart sounds, regular rat e rhythm Respiratory: aerating well, clear to auscultatio n Abdomen: soft, non-tender Genitourinary: no duran Extremities: dry, moves all Musculoskeletal: full range of motion 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 Sonya Minaya is a 65-year-old m rod with past medical history significant for diabetes, hypertension, CAD, A. fib(Xarelto), and sleep apnea who has been experiencing shortness of breath an d increased heart rate while walking only short distances. Patient also has b een having intermittent chest pain with one severe episode that woke him from sleep. 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 Cardiac work-up includ ed an echocardiogram which revealed EF 55 and mild TR. Patient underwent cardiac cathet erization today which demonstrated multivessel cor onary artery disease. CV surgery has been consulted to evaluate the need for CABG 1. Coronary artery bypass graft surgery x4 (GAMING to LAD, saphenous vein to diagonal, saphenous vein to marginal, saphenous vein to PDA). 2. Pulmonary vein isolation. 3. Isolation of left atrial appendage. 4. Endoscopic vein harvesting (right greater sap henous vein) 4/2 POD 1 Awake. alert, up in chair 2L NC with adequate sats. wean to keep sats>93% HD stable. SR on the monitor. De line. DC duran, neck line, a-line, IS/flutter. CXR reviewed. min chest tube output, dc'd left pleural now. reassessed ct output at 7pm(minimal then dcd mediastinal Bowel regimen PT/OT to ambulate Discharge plan is home with good support 4/3 Ambulate Encourage incentive spirometry Encourage p.o. Wean oxygen as tolerated Discharge planning 4/4 Wean oxygen as tolerated Ambulate Encourage incentive spirometry Discharge planning Probably home next 24 to 48 hours 4/5 Awake, alert, up in chair Room air. no distress. adequate sats. gets anxio us Encourage IS/flutter HD stable. SR on the monitor refusing lab draws US guided thoracentesis with 250 cc drained May use own bipap at night PT/OT ambulate Discharge plan: home with who will help car e for him Electronically Signed by Kevin Hinkle NP on 03/14 at 1929 RPT #:[id number] END OF REPORT 2020-12-27 18:48:00-00:00 [facility] Cardiothoracic Surgery Prog REPORT#:[id number] REPORT STATUS: Signed DATE:12/27/20 TIME: 1847 PATIENT: SONYA MINAYA UNIT #: [id number] ROOM/BED: 3363-1 : 53 AGE: 65 SEX: M ATTEND: Jae Christianson MD ADM AUTHOR: Kevin Hinkle NP * ALL edits or amendments must be made on the el [employer]/computer document * General Status post: 1. Coronary artery bypass graft surgery x4 (GAMING to LAD, saphenous vein to diagonal, saphenous vein to marginal, saphenous vein to PDA). 2. Pulmonary vein isolation. 3. Isolation of left atrial appendage. 4. Endoscopic vein harvesting (right greater sa phenous vein). Subjective Chief Complaint: follow up CABG Pain around chest tube site Review of Systems Constitutional: Denies: chills, fatigue, fever. Skin: Denies: rash, swelling. Eyes: Denies: redness, discharge. Respiratory: Denies: SOB, wheezing. Cardiovascular: Denies: chest pain. GI: Denies: nausea, vomiting. Musculoskeletal: Denies: joint pain, joint swelling. Objective Physical Exam HEENT: pupils reactive to light, sclera clear Cardiovascular: normal heart sounds, regular rat e rhythm Respiratory: aerating well, clear to auscultatio n Abdomen: soft, non-tender Genitourinary: no duran Extremities: dry, moves all Musculoskeletal: full range of motion 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 Sonya Minaya is a 65-year-old m rod with past medical history significant for diabetes, hypertension, CAD, A. fib(Xarelto), and sleep apnea who has been experiencing shortness of breath an d increased heart rate while walking only short distances. Patient also has b een having intermittent chest pain with one severe episode that woke him from sleep. 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 Cardiac work-up includ ed an echocardiogram which revealed EF 55 and mild TR. Patient underwent cardiac cathet erization today which demonstrated multivessel cor onary artery disease. CV surgery has been consulted to evaluate the need for CABG 1. Coronary artery bypass graft surgery x4 (GAMING to LAD, saphenous vein to diagonal, saphenous vein to marginal, saphenous vein to PDA). 2. Pulmonary vein isolation. 3. Isolation of left atrial appendage. 4. Endoscopic vein harvesting (right greater sap henous vein) 4/2 POD 1 Awake. alert, up in chair 2L NC with adequate sats. wean to keep sats>93% HD stable. SR on the monitor. De line. DC duran, neck line, a-line, IS/flutter. CXR reviewed. min chest tube output, dc'd left pleural now. reassessed ct output at 7pm(minimal then dcd mediastinal Bowel regimen PT/OT to ambulate Discharge plan is home with good support 12/25 Ambulate Encourage incentive spirometry Encourage p.o. Wean oxygen as tolerated Discharge planning 12/26 Wean oxygen as tolerated Ambulate Encourage incentive spirometry Discharge planning Probably home next 24 to 48 hours 12/27 Awake, alert, up in chair Room air. no distress. adequate sats. gets anxio us Encourage IS/flutter HD stable. SR on the monitor refusing lab draws US guided thoracentesis with 250 cc drained May use own bipap at night PT/OT ambulate Discharge plan: home with who will help car e for him Electronically Signed by Kevin Hinkle MEDICINE ASSISTANT on 03/14 at 1929 at 0028 RPT #:[id number] END OF REPORT 2020-12-27 15:00:00-00:00 [facility] ([facility] Brief Op Note REPORT#:[id number] REPORT STATUS: Signed DATE:12/27/20 TIME: 1500 PATIENT: SONYA MINAYA UNIT #: [id number] ROOM/BED: [place] [address] : 53 AGE: 65 SEX: M ATTEND: Jae Jaffe MD ADM AUTHOR: Paul Henriquez PA-C * ALL edits or amendments must be made on the el [employer]/computer document * Op/Inv Proc Note - Brief Pre-procedure diagnosis: Pleural Effusion Post-procedure diagnosis: same as pre procedure dx Procedures performed: ULTRASOUND GUIDED THORACENTESIS Primary Surgeon: Clifton Henriquez PA-C Railroad Wheels And Axles Inspector(s): none Anesthesia: local anesthesia Findings: The risks and benefits of th oracentesis were discussed and consent was granted. The risk of bleeding, infect ion, pneumothorax, and possible chest tube placement were discussed. All questions and concer ns were addressed. Physician Railroad Wheels And Axles Inspector directly supervised by Anderson Crews DO for the dura tion of the procedure Time out was performed. With the patient seated erect, the posterior thorax was scanned with ultrasound and an appropriate s ite for thoracentesis was marked. An ultrasound image was stored in PACs. The skin was prepped and draped in the usual sterile fashion . 1% lidocaine was used to anesthetize a tract from the skin to pleural space. A 20G spinal needle w as used to enter the pleural space. Once an aspirate of p leural fluid was obtained, the catheter was advanced into the pleural space and the needle withdrawn. Approximately 250 cc s of bloody fluid was removed. Th ere were no intraoperative complications and patient tolerated the procedure well. An immediate post- op CXR was negative for pneumothorax. The patient left the procedure marcia m in good condition Complications: none Estimated blood loss in ml's: none Specimens removed/altered: Pleural Fluid Electronically Signed by Paul Henriquez PA-C on 0 12/27/20 at 1504 RPT #:[id number] END OF REPORT 2020-12-27 07:28:00-00:00 [facility] Cardiology Progress Note REPORT#:[id number] REPORT STATUS: Signed DATE:12/27/20 TIME: 727 PATIENT: SONYA MINAYA UNIT #: [id number] ROOM/BED: [place] [address] : 53 AGE: 65 SEX: M ATTEND: Jae Jaffe MD ADM AUTHOR: Ian Coronel MD * ALL edits or amendments must be made on the el [employer]/computer document * Subjective Chief Complaint: NO MORE BLOOD TESTS Objective General VS/I O: 24 hour I O ending at 0700: 12/27 0700 04 1900 Intake Total 317.00 651.20 Output Total 635 965 Balance -318.00 -313.80 Intake, IV 217.00 233.20 Intake, Oral 100 418 Number 1 Bowel Movements Number Voids 4 Output, Urine 635 965 Patient 133.8 kg Weight Weight Standing scale Measurement Method Vital Signs: Date Time Temp Pulse Resp B/P B/P Pulse O2 O2 F low FiO2 Mean Ox Delivery Rate 12/27 0433 98.1 65 20 131/80 97.0 98 Room air 12/27 0101 97 Nasal 4.5 cannula 12/26 2323 98.4 60 16 105/65 78 96 Nasal 3 cannula 12/27 1999 98.1 61 16 107/70 82 95 Nasal 3 cannula 12/26 1945 Nasal 3 cannula 12/26 1720 98.4 79 24 113/52 0.0 97 Nasal cannula 12/26 1218 99.0 85 20 110/73 0.0 95 Nasal cannula 12/26 0850 98.4 12/26 0845 Room air 3 12/26 0838 79 20 148/78 100.9 94 PATIENT WEIGHT: Weight (lb): 294 Weight (oz): 15.66 Weight (kg): 133.800 Medications: Active Meds + DC'd Last 24 Hrs Amiodarone HCl 400 MG BID PO (CKD) Furosemide 40 MG ONCE ONE IV (DC) Potassium Chloride 40 MEQ ONCE ONE PO (DC) Amiodarone HCl 200 ML ASDIR IV (DC) Metoprolol Tartrate 25 MG Q12HR PO Amiodarone HCl 100 ML STAT STA IV (DC) Cyanocobalamin 500 MCG DAILY PO Ferrous Sulfate 325 MG DAILY PO Bisacodyl 10 MG ONCE PRN RECTAL Fluticasone Propionate 1 SPRAY DAILY NASAL (CKD) Guaifenesin 600 MG Q12HR PO Hydralazine HCl 10 MG Q6H PRN PRN IV Sodium Chloride 0 ASDIR PRN IV Levalbuterol HCl 0.63 MG RTQ4H PRN PRN INH Loratadine 10 MG DAILY PRN PRN PO Atorvastatin Calcium 40 MG 2100 PO Insulin Human Lispro 0 AC HS SUBQ Clopidogrel Bisulfate 75 MG DAILY PO Polyethylene Glycol 17 GM DAILY PO Sodium Chloride 10 ML ASDIR IV Docusate Sodium 100 MG BID PO Senna 2 TAB BEDTIME PO (CKD) Amiodarone HCl 200 MG TID PO (DC) Mupirocin 1 APPLIC BID NASAL Acetaminophen 650 MG Q4H PRN PRN PO Dextrose/Water 25 ML ASDIR PRN IV (CKD) Dextrose/Water 50 ML ASDIR PRN IV (CKD) Glucagon 1 MG ASDIR PRN IM Magnesium Sulfate 100 ML ASDIR PRN IV Magnesium Sulfate 50 ML ASDIR PRN IV Magnesium Sulfate/Dextrose 100 ML ASDIR PRN IV Ondansetron HCl 4 MG Q6H PRN PRN IV Oxycodone HCl 5 MG Q4H PRN PRN PO Oxycodone HCl 10 MG Q4H PRN PRN PO Paroxetine HCl 40 MG DAILY PO Pantoprazole 40 MG DAILY@0600 PO Physical Exam General appearance: alert, awake Head/Eyes: atraumatic, PERRL Neck: full range of motion, non-tender, normal thyroid, supple/no meningismus, no bruit/NL carotids, no JVD, no lymphadenopathy , no masses or swelling Cardiovascular: CV assessment: regular rate and rhythm Respiratory: clear to auscultation, no distress Abdomen: non-tender, normal bowel sounds , no distention, no guarding, no mass/ organomegaly, no pulsatile mass, no rebound Upper extremity: UE assessment: normal capillary refill, no luis armando a 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 Skin: dry, intact Results Findings/Data: Laboratory Tests 12/26 12/26 12/26 12/26 12/26 2122 1642 1635 1135 0743 Chemistry POC Glucose (70 - 110 MG/DL) 197 H 278 H 307 H 192 H 176 H Diagnosis, Assessment Plan Free Text DxA P Notes Free Text DxA P Notes: 1. Severe LM and three vessel CAD: S/P CABG post-op per CTS no longer on bipap, breathing improved b ut went into afib today- IV amiodarone started for 24 hours with po bb- monitor will give more lasix today as well asa, plavix, statin, bb 2. Obesity 3.Atrial Fib: Will change to PO Amiod 4. Hyperlipedemia 5. NIDDM 6. Sleesp apnea Electronically Signed by Ian Coronel MD on 02/11 at 0729 RPT #:[id number] END OF REPORT 2020-12-26 23:58:00-00:00 [facility] Clinical Note REPORT#:[id number] REPORT STATUS: Signed DATE:12/26/20 TIME: 2357 PATIENT: SONYA MINAYA UNIT #: [id number] [address] AGE: 65 SEX: M ATTEND: Jae Jaffe MD ADM AUTHOR: Jae Jaffe MD * ALL edits or amendments must be made on the [employer] document * Clinical Note Note: Events noted chart review Electronically Signed by Jae Jaffe MD o n 12/28/20 at 1420 RPT #:[id number] END OF REPORT 2020-12-26 22:40:00-00:00 [facility] Internal Medicine Prog. Note REPORT#:[id number] REPORT STATUS: Signed DATE:12/26/20 TIME: 2239 PATIENT: SONYA MINAYA UNIT #: [id number] ROOM/BED: [place] [address] : 53 AGE: 65 SEX: M ATTEND: Jae Jaffe MD ADM AUTHOR: Junie Yu MEDICINE ASSISTANT * ALL edits or amendments must be made on the [employer] document * Subjective Chief Complaint: Visit coronary artery disease Status post CABG x4 Review of Systems Constitutional: Denies: chills, fever. ENT: Reports: sore throat. Denies: earache, nasal con gestion. Respiratory: Reports: FREEMAN (dyspnea on exe rtion). Denies: hemoptysis, parox nocturnal dyspnea , pleurisy, pleuritic pain, pneumonia, SOB, whee zing. Cardiovascular: Reports: chest pain. Denies: palpitations. GI: Denies: abdominal pain, nausea, vomiting. : Reports: other. Musculoskeletal: Reports: extremity pain, extremity swelling. Den ies: joint pain, lumbar pain, neck pain. Neuro: Denies: focal weakness, headache, slurred speech . Psych: Denies: agitation, anxiety, auditory hallucinati on, change in mental status, confusion, delusional, depre ssion, homicidal ideation, hostile, insomnia, stress , suicidal ideation, visual hallucination. Objective General VS/I O: Laboratory Tests 12/25 12/24 0613 0308 Blood Gas Puncture Site R Radial R Radial O2 Saturation (90 - 100 %) 87.9 L ABG pH (7.35 - 7.45) 7.416 ABG pCO2 (35.0 - 45 mmHg) 39.8 ABG pO2 (80 - 100.0 mmHg) 56.6 L ABG HCO3 (22.0 - 26.0 MMOL/L) 25.3 ABG Total CO2 26.5 ABG Base Excess (-4.0 - 4.0 MMOL/L) 1.0 ABG Hematocrit (37.5 - 50.7 %) 28 L ABG Hemoglobin (12.5 - 16.9 G/DL) 9.4 L Vivek Test Positive Positive VBG pH (7.33 - 7.45) 7.530 H VBG pCO2 (43 - 47 mmHg) 26.0 *L VBG pO2 (10 - 50 mmHG) 59.7 H VBG HCO3 (22 - 27 MMOL/L) 21.7 L POC VBG Total CO2 22.5 VBG O2 Saturation (60 - 80 %) 93.7 H VBG Base Excess (-4.0 - 4.0 MMOL/L) -1.0 VBG Temperature (F) 98.6 Sodium (134 - 147 MEQ/L) 140 Potassium (3.4 - 5.0 MEQ/L) 4.0 Chloride (100 - 108 MEQ/L) 103 Ionized Calcium (1.12 - 1.32 MMOL/L) 1.13 Lactic Acid (0.9 - 1.7 mmol/l) 1.3 Temperature (F) 100.4 Respiration Rate (/MIN) 20 O2 Delivery Device [id number] Cannula FiO2 (%) 100 Laboratory Tests 12/26 12/26 12/26 12/26 12/26 2122 1642 1635 1135 0743 Chemistry POC Glucose (70 - 110 MG/DL) 197 H 278 H 307 H 192 H 176 H 12/26 12/25 12/25 12/25 12/25 0520 2022 1615 1143 0809 Chemistry Sodium (134 - 147 mEq/L) 138 Potassium (3.4 - 5.0 mEq/L) 3.4 Chloride (100 - 108 mEq/L) 103 Carbon Dioxide (21 - 33 mEq/l) 24 Anion Gap (0 - 20) 14 BUN (7 - 18 mg/dL) 13 Creatinine (0.6 - 1.3 mg/dL) 0.8 Glomerular Filtr Rate (80 - 90) 96.4 H Glucose (70 - 110 mg/dL) 149 H POC Glucose (70 - 110 MG/DL) 153 H 187 H 207 H 176 H Calcium (8.0 - 10.5 mg/dL) 8.6 Magnesium (1.80 - 2.40 mg/dL) 1.96 Total Bilirubin (0.0 - 1.0 mg/dL) 0.70 Direct Bilirubin (0.0 - 0.30 MG/DL) 0.30 Indirect Bilirubin (MG/DL) 0.40 AST (15 - 37 IUnit/L) 35 ALT (30 - 65 IUnit/L) 17 L Total Alk Phosphatase (20 - 125 54 IUnit/L) Total Protein (6.4 - 8.2 g/dL) 6.2 L Albumin (3.4 - 5.0 g/dL) 3.20 L 12/25 12/24 12/24 12/24 12/24 0340 2112 1627 1205 0548 Chemistry Sodium (134 - 147 mEq/L) 137 Potassium (3.4 - 5.0 mEq/L) 3.8 Chloride (100 - 108 mEq/L) 105 Carbon Dioxide (21 - 33 mEq/l) 23 Anion Gap (0 - 20) 13 BUN (7 - 18 mg/dL) 11 Creatinine (0.6 - 1.3 mg/dL) 0.9 Glomerular Filtr Rate (80 - 90) 84.2 Glucose (70 - 110 mg/dL) 183 H POC Glucose (70 - 110 MG/DL) 185 H 225 H 220 H 164 H Calcium (8.0 - 10.5 mg/dL) 8.6 Magnesium (1.80 - 2.40 mg/dL) 2.17 Total Bilirubin (0.0 - 1.0 mg/dL) 0.80 Direct Bilirubin (0.0 - 0.30 MG/DL) 0.40 H Indirect Bilirubin (MG/DL) 0.40 AST (15 - 37 IUnit/L) 64 H ALT (30 - 65 IUnit/L) 18 L Total Alk Phosphatase (20 - 125 42 IUnit/L) Total Protein (6.4 - 8.2 g/dL) 6.0 L Albumin (3.4 - 5.0 g/dL) 3.50 12/24 12/24 12/24 12/24 12/24 0358 0308 0300 0300 0155 Chemistry Sodium (134 - 147 mEq/L) 140 Potassium (3.4 - 5.0 mEq/L) 4.0 Chloride (100 - 108 mEq/L) 107 Carbon Dioxide (21 - 33 mEq/l) 26 Anion Gap (0 - 20) 11 BUN (7 - 18 mg/dL) 18 Creatinine (0.6 - 1.3 mg/dL) 1.2 POC Creatinine (0.8 - 1.3 mg/dL) 1.2 Glomerular Filtr Rate (80 - 90) 60.4 L Glucose (70 - 110 mg/dL) 161 H POC Glucose (70 - 110 MG/DL) 144 H 151 H POC Glucose (mg/dL) (70 - 110 MG/DL) 160 H Lactic Acid (0.4 - 1.9 mmol/L) 1.4 Calcium (8.0 - 10.5 mg/dL) 8.6 Magnesium (1.80 - 2.40 mg/dL) 2.14 Total Bilirubin (0.0 - 1.0 mg/dL) 0.40 Direct Bilirubin (0.0 - 0.30 MG/DL) 0.20 Indirect Bilirubin (MG/DL) 0.20 AST (15 - 37 IUnit/L) 69 H ALT (30 - 65 IUnit/L) 17 L Total Alk Phosphatase (20 - 125 34 IUnit/L) Total Protein (6.4 - 8.2 g/dL) 5.5 L Albumin (3.4 - 5.0 g/dL) 3.50 12/24 0001 Chemistry POC Glucose (70 - 110 MG/DL) 145 H Laboratory Tests 12/26 12/25 12/24 0520 0340 0300 Hematology WBC (4.5 - 11.0 x10 3/uL) 10.0 10.8 8.6 RBC (4.00 - 5.60 x10 6/uL) 3.32 L 3.42 L 3.42 L Hgb (12.5 - 16.9 g/dL) 9.4 L 9.7 L 9.6 L Hct (37.5 - 50.7 %) 30.3 L 30.6 L 30.8 L MCV (81.0 - 99.0 fL) 91.3 89.5 90.1 MCH (27.0 - 33.0 pg) 28.3 28.4 28.1 MCHC (33.0 - 37.0 g/dL) 31.0 L 31.7 L 31.2 L RDW (11.5 - 14.5 %) 15.3 H 15.9 H 15.9 H Plt Count (150 - 400 x10 3/uL) 172 149 L 154 MPV (7.0 - 9.0 fL) 11.2 H 11.2 H 11.0 H Neut % (Auto) (56.0 - 77.0 %) 77.0 79.3 H 80.8 H Lymph % (Auto) (14.0 - 32.0 %) 14.2 11.8 L 10. 3 L [place] % (Auto) (4.8 - 9.0 %) 7.5 8.1 8.2 Eos % (Auto) (0.3 - 3.7 %) 0.2 L 0.0 L 0.0 L Baso % (Auto) (0.0 - 2.0 %) 0.3 0.3 0.2 Neut # (Auto) (2.0 - 7.6 x10 3/uL) 7.73 H 8.57 H 6.94 Lymph # (Auto) (1.0 - 3.8 x10 3/uL) 1.43 1.27 0 .88 L [place] # (Auto) (0.1 - 0.8 x10 3/uL) 0.75 0.88 H 0.70 Eos # (Auto) (0.0 - 0.2 x10 3/uL) 0.02 0.00 0. 00 Baso # (Auto) (0.0 - 0.2 x10 3/uL) 0.03 0.03 0. 02 Abs Immat Gran (auto) (0.00 - 0.03 x10 3/uL) 0. 08 H 0.05 H 0.04 H Add Manual Diff NO NO NO Immature Gran % (0.0 - 2.0 %) 0.8 0.5 0.5 Nucleated RBC % (0 - 0 %) 0.0 0.0 0.0 Nucleated RBCs # (Man) (0.0 - 0.1 x10 3/uL) 0.0 0 0.00 0.00 Chemistry: 12/26 12/26 12/26 12/26 12/26 2122 1642 1635 1135 0743 Chemistry POC Glucose (70 - 110 MG/DL) 197 H 278 H 307 H 192 H 176 H 12/26 0520 Chemistry Sodium (134 - 147 mEq/L) 138 Potassium (3.4 - 5.0 mEq/L) 3.4 Chloride (100 - 108 mEq/L) 103 Carbon Dioxide (21 - 33 mEq/l) 24 BUN (7 - 18 mg/dL) 13 Creatinine (0.6 - 1.3 mg/dL) 0.8 Glucose (70 - 110 mg/dL) 149 H Calcium (8.0 - 10.5 mg/dL) 8.6 Magnesium (1.80 - 2.40 mg/dL) 1.96 Total Bilirubin (0.0 - 1.0 mg/dL) 0.70 AST (15 - 37 IUnit/L) 35 ALT (30 - 65 IUnit/L) 17 L Total Alk Phosphatase (20 - 125 IUnit/L) 54 Total Protein (6.4 - 8.2 g/dL) 6.2 L Albumin (3.4 - 5.0 g/dL) 3.20 L Vital Signs: Date Time Temp Pulse Resp B/P B/P Pulse O2 O2 F low FiO2 Mean Ox Delivery Rate 12/26 1720 36.9 79 24 113/52 0.0 97 Nasal cannula 12/26 1218 37.2 85 20 110/73 0.0 95 Nasal cannula 12/26 0850 36.9 12/26 0845 Room air 3 12/26 0838 79 20 148/78 100.9 94 12/26 0605 37.1 73 20 130/73 91.8 94 Nasal cannula 12/26 0015 37.6 79 18 135/73 0.0 94 Nasal cannula 12/26 0700 12/25 2300 12/25 1500 Intake Total Output Total 650 400 Balance -650 -400 Number 2 Bowel Movements Number Voids 1 2 Output, Urine 650 400 Patient 134.4 kg Weight Weight Standing scale Measurement Method Current Medications Sig/Jero Start time Last Medication Dose Route Stop Time Status Admin Furosemide 40 MG ONCE ONE 12/26 1400 DC 12/26 IV 12/26 1401 1416 Potassium Chloride 40 MEQ ONCE ONE 12/26 1400 D C 12/26 PO 12/26 1401 1415 Amiodarone HCl 200 ML ASDIR 12/26 1215 CKD 04/0 4 IV 01/25 1214 2051 Metoprolol Tartrate 25 MG Q12HR 12/26 1215 AC 0 12/26 PO 01/25 1214 2129 Amiodarone HCl 100 ML STAT STA 12/26 1205 DC 0 04 IV 12/26 1214 1320 Cyanocobalamin 500 MCG DAILY 12/26 0900 AC 04/0 4 PO 01/25 0859 0853 Ferrous Sulfate 325 MG DAILY 12/26 0900 AC 04/0 4 PO 01/25 0859 0853 Bisacodyl 10 MG ONCE PRN 12/25 1200 AC RECTAL 01/24 1159 Fluticasone 1 SPRAY DAILY 12/25 09 CKD 12/26 Propionate NASAL 01/24 0859 0855 Guaifenesin 600 MG Q12HR 12/25 0900 AC 12/26 PO 01/24 0859 2129 Hydralazine HCl 10 MG Q6H PRN PRN 12/25 0645 AC IV 01/24 0644 Sodium Chloride 0 ASDIR PRN 12/25 0645 AC IV 01/24 0644 Levalbuterol HCl 0.63 MG RTQ4H PRN PRN 12/25 04 30 AC 12/25 INH 01/24 0429 0551 Loratadine 10 MG DAILY PRN PRN 12/25 0430 AC PO 01/24 0429 2140 Atorvastatin Calcium 40 MG 2100 12/24 2100 AC 0 12/26 PO 01/23 Insulin Human Lispro 0 AC HS 12/24 1630 AC 04 4 SUBQ 01/23 1629 1651 Clopidogrel Bisulfate 75 MG DAILY 12/24 0900 AC 12/26 PO 01/23 0859 0854 Polyethylene Glycol 17 GM DAILY 12/24 0900 AC 12/26 PO 01/23 0859 0852 Sodium Chloride 10 ML ASDIR 12/24 0800 AC IV 01/23 0759 Docusate Sodium 100 MG BID 12/23 2100 AC 12/26 PO 01/22 Senna 2 TAB BEDTIME 12/23 2100 CKD 12/24 PO 01/22 Amiodarone HCl 200 MG TID 12/23 1500 AC 12/26 PO 01/22 1459 2129 Mupirocin 1 APPLIC BID 12/23 1300 AC 12/26 NASAL 12/27 210 2130 Acetaminophen 650 MG Q4H PRN PRN 12/23 1130 AC 12/24 PO 01/22 1129 2212 Dextrose/Water 25 ML ASDIR PRN 12/23 1130 CKD IV 01/22 1129 Dextrose/Water 50 ML ASDIR PRN 12/23 1130 CKD IV 01/22 1129 Glucagon 1 MG ASDIR PRN 12/23 1130 AC IM 01/22 1129 Magnesium Sulfate 100 ML ASDIR PRN 12/23 1130 A C IV 01/22 1129 Magnesium Sulfate 50 ML ASDIR PRN 12/23 1130 AC 12/24 IV 01/22 1129 0448 Magnesium Sulfate/ 100 ML ASDIR PRN 12/23 1130 AC Dextrose IV 01/22 1129 Ondansetron HCl 4 MG Q6H PRN PRN 12/23 1130 AC IV 01/22 1129 Oxycodone HCl 5 MG Q4H PRN PRN 12/23 1130 AC PO 12/28 1129 0005 Oxycodone HCl 10 MG Q4H PRN PRN 12/23 1130 AC 0 12/26 PO 12/28 1129 2130 Paroxetine HCl 40 MG DAILY 12/23 0900 AC 12/26 PO 01/22 0859 0852 Pantoprazole 40 MG DAILY@0600 12/23 0600 AC PO 01/22 0559 0602 Recent Impressions-Last 72 Hrs RADIOLOGY - XR CHEST 1 V 12/24 0549 Report Impression - Status: SIGNED Entered: 12/24/2020 0812 IMPRESSION: 1. Extubation and nasogastric tube removal with slightly improved pulmonary aeration. 2. Persistent bilateral perihilar and bibasilar pulmonary opacities, probably representing atelectasis and or secreti ons. 3. Probable low-volume pleural fluid. SL: ER-H Impression By: [email or web address] - Donato tian M.D. RADIOLOGY - XR CHEST 1 V 12/25 0704 Report Impression - Status: SIGNED Entered: 12/25/2020 0810 IMPRESSION: 1. Removal of right jugular line. 2. Otherwise stable chest. SL: [id number] Impression By: [email or web address] - Charles Sandhu. RADIOLOGY - XR CHEST 1 V 12/26 0704 Report Impression - Status: SIGNED Entered: 12/26/2020 0957 IMPRESSION: Stable chest. SL: [id number] Impression By: [email or web address] - Charles Sandhu Vital Signs Date Temp Pulse Resp B/P B/P Mean Pulse Ox FiO 2 12/26 36.9-37.6 73-85 18-24 110-148/52-78 0.0-1 00.9 94-97 Last Documented: Result Date Time Pulse Ox 97 12/26 1720 B/P 113/52 12/26 1720 B/P Mean 0.0 12/26 1720 O2 Delivery Nasal cannula 12/26 1720 Temp 36.9 12/26 1720 Pulse 79 12/26 1720 Resp 24 12/26 1720 O2 Flow Rate 3 12/26 0845 FiO2 40 12/25 1457 24 hour I O ending at 0700: 12/26 0700 04 1900 Intake Total Output Total 650 400 Balance -650 -400 Number 2 Bowel Movements Number Voids 1 2 Output, Urine 650 400 Patient 134.4 kg Weight Weight Standing scale Measurement Method PATIENT WEIGHT: Weight (lb): 296 Weight (oz): 4.82 Weight (kg): 134.400 Physical Exam General appearance: alert, awake Neck: no JVD Cardiovascular: regular rate rhythm Respiratory: decreased breath sounds, on oxygen Abdomen: normal bowel sounds, soft Genitourinary: no CVA tenderness Extremities: Extremities: decreased range of motion, edema 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 Patient und erwent the procedure well but needing coronary artery bypass graft due to mult iple vessel disease. 1. Status post left heart cath revealing multive ssel coronary artery disease 2. Chest pain/dyspnea on exertion 3. Hypertension 4. Diabetes mellitus type 2 5. Dyslipidemia statin 6. Morbid obesity 12/23/2020: Status post CABG x4 Patient postop Is awake complaining of pain Chest tubes x2 Duran catheter to bedside drainage No pressors December 24, 2020 Patient out of bed Transferred to N 1 12/25/20 Patient notes that he is feeling fatigued and borden ving too much pain with ambulation Encourage ambulation and incentive spirometer Work with PT/OT We will discharge once cleared by cardiothoracic team 12/26/20 Patient with some anxiety Complains of shortness of breath when laying alirio n More comfortable sitting on a recliner Plan of care: Keep patient on telemetry Continue to monitor closely Glycemic control -SS we will add Lantus in a.m. DVT prophylaxis Lovenox Continue with current medications Repeat labs Pain control Continue with PT/OT We will repeat chest x-ray to evaluate for fluid overload Plan of care discussed with the patient, patient 's nurse, and Dr. Underwood. Electronically Signed by Junie Yu MEDICINE ASSISTANT on 0 12/28/20 at 0747 RPT #:[id number] END OF REPORT 2020-12-26 22:40:00-00:00 [facility] Internal Medicine Prog. Note REPORT#:[id number] REPORT STATUS: Signed DATE:12/26/20 TIME: 2239 PATIENT: SONYA MINAYA UNIT #: [id number] ROOM/BED: [place] [address] : 53 AGE: 65 SEX: M ATTEND: Jae Christianson MD ADM AUTHOR: Junie Yu MEDICINE ASSISTANT * ALL edits or amendments must be made on the [employer]/computer document * Junie Yu 12/26/20 2240: Subjective Chief Complaint: Visit coronary artery disease Status post CABG x4 Review of Systems Constitutional: Denies: chills, fever. ENT: Reports: sore throat. Denies: earache, nasal con gestion. Respiratory: Reports: FREEMAN (dyspnea on exe rtion). Denies: hemoptysis, parox nocturnal dyspnea , pleurisy, pleuritic pain, pneumonia, SOB, whee zing. Cardiovascular: Reports: chest pain. Denies: palpitations. GI: Denies: abdominal pain, nausea, vomiting. : Reports: other. Musculoskeletal: Reports: extremity pain, extremity swelling. Den ies: joint pain, lumbar pain, neck pain. Neuro: Denies: focal weakness, headache, slurred speech . Psych: Denies: agitation, anxiety, auditory hallucinati on, change in mental status, confusion, delusional, depre ssion, homicidal ideation, hostile, insomnia, stress , suicidal ideation, visual hallucination. Objective General VS/I O: Laboratory Tests 12/2513 0308 Blood Gas Puncture Site R Radial R Radial O2 Saturation (90 - 100 %) 87.9 L ABG pH (7.35 - 7.45) 7.416 ABG pCO2 (35.0 - 45 mmHg) 39.8 ABG pO2 (80 - 100.0 mmHg) 56.6 L ABG HCO3 (22.0 - 26.0 MMOL/L) 25.3 ABG Total CO2 26.5 ABG Base Excess (-4.0 - 4.0 MMOL/L) 1.0 ABG Hematocrit (37.5 - 50.7 %) 28 L ABG Hemoglobin (12.5 - 16.9 G/DL) 9.4 L Vivek Test Positive Positive VBG pH (7.33 - 7.45) 7.530 H VBG pCO2 (43 - 47 mmHg) 26.0 *L VBG pO2 (10 - 50 mmHG) 59.7 H VBG HCO3 (22 - 27 MMOL/L) 21.7 L POC VBG Total CO2 22.5 VBG O2 Saturation (60 - 80 %) 93.7 H VBG Base Excess (-4.0 - 4.0 MMOL/L) -1.0 VBG Temperature (F) 98.6 Sodium (134 - 147 MEQ/L) 140 Potassium (3.4 - 5.0 MEQ/L) 4.0 Chloride (100 - 108 MEQ/L) 103 Ionized Calcium (1.12 - 1.32 MMOL/L) 1.13 Lactic Acid (0.9 - 1.7 mmol/l) 1.3 Temperature (F) 100.4 Respiration Rate (/MIN) 20 O2 Delivery Device NRBMASK Cannula FiO2 (%) 100 Laboratory Tests 12/26 1642 1635 1135 0743 Chemistry POC Glucose (70 - 110 MG/DL) 197 H 278 H 307 H 192 H 176 H 12/2620 2022 1615 1143 0809 Chemistry Sodium (134 - 147 mEq/L) 138 Potassium (3.4 - 5.0 mEq/L) 3.4 Chloride (100 - 108 mEq/L) 103 Carbon Dioxide (21 - 33 mEq/l) 24 Anion Gap (0 - 20) 14 BUN (7 - 18 mg/dL) 13 Creatinine (0.6 - 1.3 mg/dL) 0.8 Glomerular Filtr Rate (80 - 90) 96.4 H Glucose (70 - 110 mg/dL) 149 H POC Glucose (70 - 110 MG/DL) 153 H 187 H 207 H 176 H Calcium (8.0 - 10.5 mg/dL) 8.6 Magnesium (1.80 - 2.40 mg/dL) 1.96 Total Bilirubin (0.0 - 1.0 mg/dL) 0.70 Direct Bilirubin (0.0 - 0.30 MG/DL) 0.30 Indirect Bilirubin (MG/DL) 0.40 AST (15 - 37 IUnit/L) 35 ALT (30 - 65 IUnit/L) 17 L Total Alk Phosphatase (20 - 125 54 IUnit/L) Total Protein (6.4 - 8.2 g/dL) 6.2 L Albumin (3.4 - 5.0 g/dL) 3.20 L 12/25 12/24 12/24 12/24 12/24 0340 2112 1627 1205 0548 Chemistry Sodium (134 - 147 mEq/L) 137 Potassium (3.4 - 5.0 mEq/L) 3.8 Chloride (100 - 108 mEq/L) 105 Carbon Dioxide (21 - 33 mEq/l) 23 Anion Gap (0 - 20) 13 BUN (7 - 18 mg/dL) 11 Creatinine (0.6 - 1.3 mg/dL) 0.9 Glomerular Filtr Rate (80 - 90) 84.2 Glucose (70 - 110 mg/dL) 183 H POC Glucose (70 - 110 MG/DL) 185 H 225 H 220 H 164 H Calcium (8.0 - 10.5 mg/dL) 8.6 Magnesium (1.80 - 2.40 mg/dL) 2.17 Total Bilirubin (0.0 - 1.0 mg/dL) 0.80 Direct Bilirubin (0.0 - 0.30 MG/DL) 0.40 H Indirect Bilirubin (MG/DL) 0.40 AST (15 - 37 IUnit/L) 64 H ALT (30 - 65 IUnit/L) 18 L Total Alk Phosphatase (20 - 125 42 IUnit/L) Total Protein (6.4 - 8.2 g/dL) 6.0 L Albumin (3.4 - 5.0 g/dL) 3.50 12/24 12/24 12/24 12/24 12/24 0358 0308 0300 0300 0155 Chemistry Sodium (134 - 147 mEq/L) 140 Potassium (3.4 - 5.0 mEq/L) 4.0 Chloride (100 - 108 mEq/L) 107 Carbon Dioxide (21 - 33 mEq/l) 26 Anion Gap (0 - 20) 11 BUN (7 - 18 mg/dL) 18 Creatinine (0.6 - 1.3 mg/dL) 1.2 POC Creatinine (0.8 - 1.3 mg/dL) 1.2 Glomerular Filtr Rate (80 - 90) 60.4 L Glucose (70 - 110 mg/dL) 161 H POC Glucose (70 - 110 MG/DL) 144 H 151 H POC Glucose (mg/dL) (70 - 110 MG/DL) 160 H Lactic Acid (0.4 - 1.9 mmol/L) 1.4 Calcium (8.0 - 10.5 mg/dL) 8.6 Magnesium (1.80 - 2.40 mg/dL) 2.14 Total Bilirubin (0.0 - 1.0 mg/dL) 0.40 Direct Bilirubin (0.0 - 0.30 MG/DL) 0.20 Indirect Bilirubin (MG/DL) 0.20 AST (15 - 37 IUnit/L) 69 H ALT (30 - 65 IUnit/L) 17 L Total Alk Phosphatase (20 - 125 34 IUnit/L) Total Protein (6.4 - 8.2 g/dL) 5.5 L Albumin (3.4 - 5.0 g/dL) 3.50 12/24 0001 Chemistry POC Glucose (70 - 110 MG/DL) 145 H Laboratory Tests 12/26 12/25 12/24 0520 0340 0300 Hematology WBC (4.5 - 11.0 x10 3/uL) 10.0 10.8 8.6 RBC (4.00 - 5.60 x10 6/uL) 3.32 L 3.42 L 3.42 L Hgb (12.5 - 16.9 g/dL) 9.4 L 9.7 L 9.6 L Hct (37.5 - 50.7 %) 30.3 L 30.6 L 30.8 L MCV (81.0 - 99.0 fL) 91.3 89.5 90.1 MCH (27.0 - 33.0 pg) 28.3 28.4 28.1 MCHC (33.0 - 37.0 g/dL) 31.0 L 31.7 L 31.2 L RDW (11.5 - 14.5 %) 15.3 H 15.9 H 15.9 H Plt Count (150 - 400 x10 3/uL) 172 149 L 154 MPV (7.0 - 9.0 fL) 11.2 H 11.2 H 11.0 H Neut % (Auto) (56.0 - 77.0 %) 77.0 79.3 H 80.8 H Lymph % (Auto) (14.0 - 32.0 %) 14.2 11.8 L 10.3 L [place] % (Auto) (4.8 - 9.0 %) 7.5 8.1 8.2 Eos % (Auto) (0.3 - 3.7 %) 0.2 L 0.0 L 0.0 L Baso % (Auto) (0.0 - 2.0 %) 0.3 0.3 0.2 Neut # (Auto) (2.0 - 7.6 x10 3/uL) 7.73 H 8.57 H 6.94 Lymph # (Auto) (1.0 - 3.8 x10 3/uL) 1.43 1.27 0 .88 L [place] # (Auto) (0.1 - 0.8 x10 3/uL) 0.75 0.88 H 0.70 Eos # (Auto) (0.0 - 0.2 x10 3/uL) 0.02 0.00 0.0 0 Baso # (Auto) (0.0 - 0.2 x10 3/uL) 0.03 0.03 0. 02 Abs Immat Gran (auto) (0.00 - 0.03 x10 3/uL) 0. 08 H 0.05 H 0.04 H Add Manual Diff NO NO NO Immature Gran % (0.0 - 2.0 %) 0.8 0.5 0.5 Nucleated RBC % (0 - 0 %) 0.0 0.0 0.0 Nucleated RBCs # (Man) (0.0 - 0.1 x10 3/uL) 0.0 0 0.00 0.00 Chemistry: 12/26 12/26 12/26 12/26 12/26 2122 1642 1635 1135 0743 Chemistry POC Glucose (70 - 110 MG/DL) 197 H 278 H 307 H 192 H 176 H 12/26 0520 Chemistry Sodium (134 - 147 mEq/L) 138 Potassium (3.4 - 5.0 mEq/L) 3.4 Chloride (100 - 108 mEq/L) 103 Carbon Dioxide (21 - 33 mEq/l) 24 BUN (7 - 18 mg/dL) 13 Creatinine (0.6 - 1.3 mg/dL) 0.8 Glucose (70 - 110 mg/dL) 149 H Calcium (8.0 - 10.5 mg/dL) 8.6 Magnesium (1.80 - 2.40 mg/dL) 1.96 Total Bilirubin (0.0 - 1.0 mg/dL) 0.70 AST (15 - 37 IUnit/L) 35 ALT (30 - 65 IUnit/L) 17 L Total Alk Phosphatase (20 - 125 IUnit/L) 54 Total Protein (6.4 - 8.2 g/dL) 6.2 L Albumin (3.4 - 5.0 g/dL) 3.20 L Vital Signs: Date Time Temp Pulse Resp B/P B/P Pulse O2 O2 F low FiO2 Mean Ox Delivery Rate 12/26 1720 36.9 79 24 113/52 0.0 97 Nasal cannula 12/26 1218 37.2 85 20 110/73 0.0 95 Nasal cannula 12/26 0850 36.9 12/26 0845 Room air 3 12/26 0838 79 20 148/78 100.9 94 12/26 0605 37.1 73 20 130/73 91.8 94 Nasal cannula 12/26 0015 37.6 79 18 135/73 0.0 94 Nasal cannula 12/26 0700 12/25 2300 12/25 1500 Intake Total Output Total 650 400 Balance -650 -400 Number 2 Bowel Movements Number Voids 1 2 Output, Urine 650 400 Patient 134.4 kg Weight Weight Standing scale Measurement Method Current Medications Sig/Jero Start time Last Medication Dose Route Stop Time Status Admin Furosemide 40 MG ONCE ONE 12/26 1400 DC 12/26 IV 12/26 1401 1416 Potassium Chloride 40 MEQ ONCE ONE 12/26 1400 D C 12/26 PO 12/26 1401 1415 Amiodarone HCl 200 ML ASDIR 12/26 1215 CKD 04/0 4 IV 01/25 1214 2051 Metoprolol Tartrate 25 MG Q12HR 12/26 1215 AC 0 12/26 PO 01/25 1214 2129 Amiodarone HCl 100 ML STAT STA 12/26 1205 DC IV 12/26 1214 1320 Cyanocobalamin 500 MCG DAILY 12/26 0900 AC 4 PO 01/25 0859 0853 Ferrous Sulfate 325 MG DAILY 12/26 0900 AC 4 PO 01/25 0859 0853 Bisacodyl 10 MG ONCE PRN 12/25 1200 AC RECTAL 01/24 1159 Fluticasone 1 SPRAY DAILY 12/25 09 CKD 12/26 Propionate NASAL 01/24 0859 0855 Guaifenesin 600 MG Q12HR 12/25 0900 AC 12/26 PO 01/24 0859 2129 Hydralazine HCl 10 MG Q6H PRN PRN 12/25 0645 AC IV 01/24 0644 Sodium Chloride 0 ASDIR PRN 12/25 0645 AC IV 01/24 0644 Levalbuterol HCl 0.63 MG RTQ4H PRN PRN 12/25 04 30 AC 12/25 INH 01/24 0429 0551 Loratadine 10 MG DAILY PRN PRN 12/25 0430 AC PO 01/24 0429 2140 Atorvastatin Calcium 40 MG 2100 12/24 2100 AC 0 12/26 PO 01/23 2059 2129 Insulin Human Lispro 0 AC HS 12/24 1630 AC 4 SUBQ 01/23 1629 1651 Clopidogrel Bisulfate 75 MG DAILY 12/24 0900 AC 12/26 PO 01/23 0859 0854 Polyethylene Glycol 17 GM DAILY 12/24 0900 AC 12/26 PO 01/23 0859 0852 Sodium Chloride 10 ML ASDIR 12/24 0800 AC IV 01/23 0759 Docusate Sodium 100 MG BID 12/23 2100 AC 12/26 PO 01/22 Senna 2 TAB BEDTIME 12/23 2100 CKD 12/24 PO 01/22 2059 204 Amiodarone HCl 200 MG TID 12/23 1500 AC 12/26 PO 01/22 1459 2129 Mupirocin 1 APPLIC BID 12/23 1300 AC 12/26 NASAL 12/27 2101 2130 Acetaminophen 650 MG Q4H PRN PRN 12/23 1130 AC 12/24 PO 01/22 1129 2212 Dextrose/Water 25 ML ASDIR PRN 12/23 1130 CKD IV 01/22 1129 Dextrose/Water 50 ML ASDIR PRN 12/23 1130 CKD IV 01/22 1129 Glucagon 1 MG ASDIR PRN 12/23 1130 AC IM 01/22 1129 Magnesium Sulfate 100 ML ASDIR PRN 12/23 1130 A C IV 01/22 1129 Magnesium Sulfate 50 ML ASDIR PRN 12/23 1130 AC 12/24 IV 01/22 1129 0448 Magnesium Sulfate/ 100 ML ASDIR PRN 12/23 1130 AC Dextrose IV 01/22 1129 Ondansetron HCl 4 MG Q6H PRN PRN 12/23 1130 AC IV 01/22 1129 Oxycodone HCl 5 MG Q4H PRN PRN 12/23 1130 AC PO 12/28 1129 0005 Oxycodone HCl 10 MG Q4H PRN PRN 12/23 1130 AC 0 12/26 PO 12/28 1129 2130 Paroxetine HCl 40 MG DAILY 12/23 0900 AC 12/26 PO 01/22 0859 0852 Pantoprazole 40 MG DAILY@0600 12/23 0600 AC PO 01/22 0559 0602 Recent Impressions-Last 72 Hrs RADIOLOGY - XR CHEST 1 V 12/24 0549 Report Impression - Status: SIGNED Entered: 12/24/2020 0812 IMPRESSION: 1. Extubation and nasogastric tube removal with slightly improved pulmonary aeration. 2. Persistent bilateral perihilar and bibasilar pulmonary opacities, probably representing atelectasis and or secreti ons. 3. Probable low-volume pleural fluid. SL: ER-H Impression By: [email or web address] - Donato tian M.D. RADIOLOGY - XR CHEST 1 V 12/25 0704 Report Impression - Status: SIGNED Entered: 12/25/2020 0810 IMPRESSION: 1. Removal of right jugular line. 2. Otherwise stable chest. SL: [id number] Impression By: Charles Diaz RADIOLOGY - XR CHEST 1 V 12/27 703 Report Impression - Status: SIGNED Entered: 12/26/2020 0957 IMPRESSION: Stable chest. SL: [id number] Impression By: Charles Diaz Vital Signs Date Temp Pulse Resp B/P B/P Mean Pulse Ox FiO2 12/26 36.9-37.6 73-85 18-24 110-148/52-78 0.0-1 00.9 94-97 Last Documented: Result Date Time Pulse Ox 97 12/26 1720 B/P 113/52 12/26 1720 B/P Mean 0.0 12/26 1720 O2 Delivery Nasal cannula 12/26 1720 Temp 36.9 12/26 1720 Pulse 79 12/26 1720 Resp 24 12/26 1720 O2 Flow Rate 3 12/26 0845 FiO2 40 12/25 1457 24 hour I O ending at 0700: 12/26 0700 12/25 1900 Intake Total Output Total 650 400 Balance -650 -400 Number 2 Bowel Movements Number Voids 1 2 Output, Urine 650 400 Patient 134.4 kg Weight Weight Standing scale Measurement Method PATIENT WEIGHT: Weight (lb): 296 Weight (oz): 4.82 Weight (kg): 134.400 Physical Exam General appearance: alert, awake Neck: no JVD Cardiovascular: regular rate rhythm Respiratory: decreased breath sounds, on oxygen Abdomen: normal bowel sounds, soft Genitourinary: no CVA tenderness Extremities: Extremities: decreased range of motion, edema 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 Patient und erwent the procedure well but needing coronary artery bypass graft due to mult iple vessel disease. 1. Status post left heart cath revealing multive ssel coronary artery disease 2. Chest pain/dyspnea on exertion 3. Hypertension 4. Diabetes mellitus type 2 5. Dyslipidemia statin 6. Morbid obesity 12/23/2020: Status post CABG x4 Patient postop Is awake complaining of pain Chest tubes x2 Duran catheter to bedside drainage No pressors December 24, 2020 Patient out of bed Transferred to CVN 1 12/25/20 Patient notes that he is feeling fatigued and borden ving too much pain with ambulation Encourage ambulation and incentive spirometer Work with PT/OT We will discharge once cleared by cardiothoracic team 12/26/20 Patient with some anxiety Complains of shortness of breath when laying alirio n More comfortable sitting on a recliner Plan of care: Keep patient on telemetry Continue to monitor closely Glycemic control -SS we will add Lantus in a.m. DVT prophylaxis Lovenox Continue with current medications Repeat labs Pain control Continue with PT/OT We will repeat chest x-ray to evaluate for fluid overload Plan of care discussed with the patient, patient 's nurse, and Dr. Underwood. Jae Underwood 12/30/20 0705: Attestations Physician Attestation Agree w/findings plan: I agree with the findings and plan as documented by DOROTEO Yu. Plan of care coordinated with DOROTEO Yu. Pertinent labs, Imaging, and behavioral consultant evaluations reviewed. 65-year-old male presented f or elective left heart catheterization. He has some anxiety and he also complain s of shortness of breath when laying down, but he is more comfortable sitting on a recliner. We will continue with telemetry, glycemic control with sliding scale, DVT prophyl axis with Lovenox, current medications, repeat labs, pain control, and PT/OT. We will continue to monitor him closely. We will repeat chest x-ray to evalu ate for fluid overload. Electronically Signed by Junie Yu NP on 0 12/28/20 at 0747 RPT #:[id number] END OF REPORT 2020-12-26 22:40:00-00:00 [facility] REPORT#:[id number] REPORT STATUS: Signed DATE:12/26/20 TIME: 2239 PATIENT: SONYA MINAYA UNIT #: [id number] ROOM/BED: 3363-1 : 53 AGE: 65 SEX: M ATTEND: Jae Jaffe MD ADM AUTHOR: Junie Yu MEDICINE ASSISTANT * ALL edits or amendments must be made on the [employer]/computer document * Junie Yu 12/26/20 2240: Subjective Chief Complaint: Visit coronary artery disease Status post CABG x4 Review of Systems Constitutional: Denies: chills, fever. ENT: Reports: sore throat. Denies: earache, nasal con gestion. Respiratory: Reports: FREEMAN (dyspnea on exe rtion). Denies: hemoptysis, parox nocturnal dyspnea , pleurisy, pleuritic pain, pneumonia, SOB, whee zing. Cardiovascular: Reports: chest pain. Denies: palpitations. GI: Denies: abdominal pain, nausea, vomiting. : Reports: other. Musculoskeletal: Reports: extremity pain, extremity swelling. Den ies: joint pain, lumbar pain, neck pain. Neuro: Denies: focal weakness, headache, slurred speech . Psych: Denies: agitation, anxiety, auditory hallucinati on, change in mental status, confusion, delusional, depre ssion, homicidal ideation, hostile, insomnia, stress , suicidal ideation, visual hallucination. Objective General VS/I O: Laboratory Tests 12/25 12/24 0613 0308 Blood Gas Puncture Site R Radial R Radial O2 Saturation (90 - 100 %) 87.9 L ABG pH (7.35 - 7.45) 7.416 ABG pCO2 (35.0 - 45 mmHg) 39.8 ABG pO2 (80 - 100.0 mmHg) 56.6 L ABG HCO3 (22.0 - 26.0 MMOL/L) 25.3 ABG Total CO2 26.5 ABG Base Excess (-4.0 - 4.0 MMOL/L) 1.0 ABG Hematocrit (37.5 - 50.7 %) 28 L ABG Hemoglobin (12.5 - 16.9 G/DL) 9.4 L Vivek Test Positive Positive VBG pH (7.33 - 7.45) 7.530 H VBG pCO2 (43 - 47 mmHg) 26.0 *L VBG pO2 (10 - 50 mmHG) 59.7 H VBG HCO3 (22 - 27 MMOL/L) 21.7 L POC VBG Total CO2 22.5 VBG O2 Saturation (60 - 80 %) 93.7 H VBG Base Excess (-4.0 - 4.0 MMOL/L) -1.0 VBG Temperature (F) 98.6 Sodium (134 - 147 MEQ/L) 140 Potassium (3.4 - 5.0 MEQ/L) 4.0 Chloride (100 - 108 MEQ/L) 103 Ionized Calcium (1.12 - 1.32 MMOL/L) 1.13 Lactic Acid (0.9 - 1.7 mmol/l) 1.3 Temperature (F) 100.4 Respiration Rate (/MIN) 20 O2 Delivery Device NRBMASK Cannula FiO2 (%) 100 Laboratory Tests 12/26 1642 1635 1135 0743 Chemistry POC Glucose (70 - 110 MG/DL) 197 H 278 H 307 H 192 H 176 H 12/26 12/25 12/25 12/25 12/25 0520 2022 1615 1143 0809 Chemistry Sodium (134 - 147 mEq/L) 138 Potassium (3.4 - 5.0 mEq/L) 3.4 Chloride (100 - 108 mEq/L) 103 Carbon Dioxide (21 - 33 mEq/l) 24 Anion Gap (0 - 20) 14 BUN (7 - 18 mg/dL) 13 Creatinine (0.6 - 1.3 mg/dL) 0.8 Glomerular Filtr Rate (80 - 90) 96.4 H Glucose (70 - 110 mg/dL) 149 H POC Glucose (70 - 110 MG/DL) 153 H 187 H 207 H 176 H Calcium (8.0 - 10.5 mg/dL) 8.6 Magnesium (1.80 - 2.40 mg/dL) 1.96 Total Bilirubin (0.0 - 1.0 mg/dL) 0.70 Direct Bilirubin (0.0 - 0.30 MG/DL) 0.30 Indirect Bilirubin (MG/DL) 0.40 AST (15 - 37 IUnit/L) 35 ALT (30 - 65 IUnit/L) 17 L Total Alk Phosphatase (20 - 125 54 IUnit/L) Total Protein (6.4 - 8.2 g/dL) 6.2 L Albumin (3.4 - 5.0 g/dL) 3.20 L 12/25 12/24 12/24 12/24 12/24 0340 2112 1627 1205 0548 Chemistry Sodium (134 - 147 mEq/L) 137 Potassium (3.4 - 5.0 mEq/L) 3.8 Chloride (100 - 108 mEq/L) 105 Carbon Dioxide (21 - 33 mEq/l) 23 Anion Gap (0 - 20) 13 BUN (7 - 18 mg/dL) 11 Creatinine (0.6 - 1.3 mg/dL) 0.9 Glomerular Filtr Rate (80 - 90) 84.2 Glucose (70 - 110 mg/dL) 183 H POC Glucose (70 - 110 MG/DL) 185 H 225 H 220 H 164 H Calcium (8.0 - 10.5 mg/dL) 8.6 Magnesium (1.80 - 2.40 mg/dL) 2.17 Total Bilirubin (0.0 - 1.0 mg/dL) 0.80 Direct Bilirubin (0.0 - 0.30 MG/DL) 0.40 H Indirect Bilirubin (MG/DL) 0.40 AST (15 - 37 IUnit/L) 64 H ALT (30 - 65 IUnit/L) 18 L Total Alk Phosphatase (20 - 125 42 IUnit/L) Total Protein (6.4 - 8.2 g/dL) 6.0 L Albumin (3.4 - 5.0 g/dL) 3.50 12/24 12/24 12/24 12/24 12/24 0358 0308 0300 0300 0155 Chemistry Sodium (134 - 147 mEq/L) 140 Potassium (3.4 - 5.0 mEq/L) 4.0 Chloride (100 - 108 mEq/L) 107 Carbon Dioxide (21 - 33 mEq/l) 26 Anion Gap (0 - 20) 11 BUN (7 - 18 mg/dL) 18 Creatinine (0.6 - 1.3 mg/dL) 1.2 POC Creatinine (0.8 - 1.3 mg/dL) 1.2 Glomerular Filtr Rate (80 - 90) 60.4 L Glucose (70 - 110 mg/dL) 161 H POC Glucose (70 - 110 MG/DL) 144 H 151 H POC Glucose (mg/dL) (70 - 110 MG/DL) 160 H Lactic Acid (0.4 - 1.9 mmol/L) 1.4 Calcium (8.0 - 10.5 mg/dL) 8.6 Magnesium (1.80 - 2.40 mg/dL) 2.14 Total Bilirubin (0.0 - 1.0 mg/dL) 0.40 Direct Bilirubin (0.0 - 0.30 MG/DL) 0.20 Indirect Bilirubin (MG/DL) 0.20 AST (15 - 37 IUnit/L) 69 H ALT (30 - 65 IUnit/L) 17 L Total Alk Phosphatase (20 - 125 34 IUnit/L) Total Protein (6.4 - 8.2 g/dL) 5.5 L Albumin (3.4 - 5.0 g/dL) 3.50 04/ 0001 Chemistry POC Glucose (70 - 110 MG/DL) 145 H Laboratory Tests 12/26 12/25 12/24 0520 0340 0300 Hematology WBC (4.5 - 11.0 x10 3/uL) 10.0 10.8 8.6 RBC (4.00 - 5.60 x10 6/uL) 3.32 L 3.42 L 3.42 L Hgb (12.5 - 16.9 g/dL) 9.4 L 9.7 L 9.6 L Hct (37.5 - 50.7 %) 30.3 L 30.6 L 30.8 L MCV (81.0 - 99.0 fL) 91.3 89.5 90.1 MCH (27.0 - 33.0 pg) 28.3 28.4 28.1 MCHC (33.0 - 37.0 g/dL) 31.0 L 31.7 L 31.2 L RDW (11.5 - 14.5 %) 15.3 H 15.9 H 15.9 H Plt Count (150 - 400 x10 3/uL) 172 149 L 154 MPV (7.0 - 9.0 fL) 11.2 H 11.2 H 11.0 H Neut % (Auto) (56.0 - 77.0 %) 77.0 79.3 H 80.8 H Lymph % (Auto) (14.0 - 32.0 %) 14.2 11.8 L 10. 3 L [place] % (Auto) (4.8 - 9.0 %) 7.5 8.1 8.2 Eos % (Auto) (0.3 - 3.7 %) 0.2 L 0.0 L 0.0 L Baso % (Auto) (0.0 - 2.0 %) 0.3 0.3 0.2 Neut # (Auto) (2.0 - 7.6 x10 3/uL) 7.73 H 8.57 H 6.94 Lymph # (Auto) (1.0 - 3.8 x10 3/uL) 1.43 1.27 0 .88 L [place] # (Auto) (0.1 - 0.8 x10 3/uL) 0.75 0.88 H 0.70 Eos # (Auto) (0.0 - 0.2 x10 3/uL) 0.02 0.00 0.0 0 Baso # (Auto) (0.0 - 0.2 x10 3/uL) 0.03 0.03 0. 02 Abs Immat Gran (auto) (0.00 - 0.03 x10 3/uL) 0. 08 H 0.05 H 0.04 H Add Manual Diff NO NO NO Immature Gran % (0.0 - 2.0 %) 0.8 0.5 0.5 Nucleated RBC % (0 - 0 %) 0.0 0.0 0.0 Nucleated RBCs # (Man) (0.0 - 0.1 x10 3/uL) 0.0 0 0.00 0.00 Chemistry: 12/26 12/26 12/26 12/26 12/26 2122 1642 1635 1135 0743 Chemistry POC Glucose (70 - 110 MG/DL) 197 H 278 H 307 H 192 H 176 H 12/26 0520 Chemistry Sodium (134 - 147 mEq/L) 138 Potassium (3.4 - 5.0 mEq/L) 3.4 Chloride (100 - 108 mEq/L) 103 Carbon Dioxide (21 - 33 mEq/l) 24 BUN (7 - 18 mg/dL) 13 Creatinine (0.6 - 1.3 mg/dL) 0.8 Glucose (70 - 110 mg/dL) 149 H Calcium (8.0 - 10.5 mg/dL) 8.6 Magnesium (1.80 - 2.40 mg/dL) 1.96 Total Bilirubin (0.0 - 1.0 mg/dL) 0.70 AST (15 - 37 IUnit/L) 35 ALT (30 - 65 IUnit/L) 17 L Total Alk Phosphatase (20 - 125 IUnit/L) 54 Total Protein (6.4 - 8.2 g/dL) 6.2 L Albumin (3.4 - 5.0 g/dL) 3.20 L Vital Signs: Date Time Temp Pulse Resp B/P B/P Pulse O2 O2 F low FiO2 Mean Ox Delivery Rate 12/26 1720 36.9 79 24 113/52 0.0 97 Nasal cannula 12/26 1218 37.2 85 20 110/73 0.0 95 Nasal cannula 12/26 0850 36.9 12/26 0845 Room air 3 12/26 0838 79 20 148/78 100.9 94 12/26 0605 37.1 73 20 130/73 91.8 94 Nasal cannula 12/26 0015 37.6 79 18 135/73 0.0 94 Nasal cannula 12/26 0700 12/25 2300 12/25 1500 Intake Total Output Total 650 400 Balance -650 -400 Number 2 Bowel Movements Number Voids 1 2 Output, Urine 650 400 Patient 134.4 kg Weight Weight Standing scale Measurement Method Current Medications Sig/Jero Start time Last Medication Dose Route Stop Time Status Admin Furosemide 40 MG ONCE ONE 12/26 1400 DC 12/26 IV 12/26 1401 1416 Potassium Chloride 40 MEQ ONCE ONE 12/26 1400 D C 12/26 PO 12/26 1401 1415 Amiodarone HCl 200 ML ASDIR 12/26 1215 CKD 04/ 4 IV 01/25 1214 2051 Metoprolol Tartrate 25 MG Q12HR 12/26 1215 AC 0 12/26 PO 01/25 1214 2129 Amiodarone HCl 100 ML STAT STA 12/26 1205 DC IV 12/26 1214 1320 Cyanocobalamin 500 MCG DAILY 12/26 09 AC 4 PO 01/25 0859 0853 Ferrous Sulfate 325 MG DAILY 12/26 899 AC 4 PO 01/25 0859 0853 Bisacodyl 10 MG ONCE PRN 12/25 1200 AC RECTAL 01/24 1159 Fluticasone 1 SPRAY DAILY 12/25 09 CKD 12/26 Propionate NASAL 01/24 0859 0855 Guaifenesin 600 MG Q12HR 12/25 0900 AC 12/26 PO 01/24 0859 2129 Hydralazine HCl 10 MG Q6H PRN PRN 12/25 0645 AC IV 01/24 0644 Sodium Chloride 0 ASDIR PRN 12/25 0645 AC IV 01/24 0644 Levalbuterol HCl 0.63 MG RTQ4H PRN PRN 12/25 04 30 AC 12/25 INH 01/24 0429 0551 Loratadine 10 MG DAILY PRN PRN 12/25 0430 AC PO 01/24 0429 2140 Atorvastatin Calcium 40 MG 2100 12/24 2100 AC 0 12/26 PO 01/23 Insulin Human Lispro 0 AC HS 12/24 1630 AC 4 SUBQ 01/23 1629 1651 Clopidogrel Bisulfate 75 MG DAILY 12/24 0900 AC 12/26 PO 01/23 0859 0854 Polyethylene Glycol 17 GM DAILY 12/24 0900 AC 0 12/26 PO 01/23 0859 0852 Sodium Chloride 10 ML ASDIR 12/24 0800 AC IV 01/23 0759 Docusate Sodium 100 MG BID 12/23 2100 AC 12/26 PO 01/22 2059 212 Senna 2 TAB BEDTIME 12/23 2100 CKD 12/24 PO 01/22 205 204 Amiodarone HCl 200 MG TID 12/23 1500 AC 12/26 PO 01/22 1459 2129 Mupirocin 1 APPLIC BID 12/23 1300 AC 12/26 NASAL 12/27 2101 2130 Acetaminophen 650 MG Q4H PRN PRN 12/23 1130 AC 12/24 PO 01/22 1129 2212 Dextrose/Water 25 ML ASDIR PRN 12/23 1130 CKD IV 01/22 1129 Dextrose/Water 50 ML ASDIR PRN 12/23 1130 CKD IV 01/22 1129 Glucagon 1 MG ASDIR PRN 12/23 1130 AC IM 01/22 1129 Magnesium Sulfate 100 ML ASDIR PRN 12/23 1130 A C IV 01/22 1129 Magnesium Sulfate 50 ML ASDIR PRN 12/23 1130 AC 12/24 IV 01/22 1129 0448 Magnesium Sulfate/ 100 ML ASDIR PRN 12/23 1130 AC Dextrose IV 01/22 1129 Ondansetron HCl 4 MG Q6H PRN PRN 12/23 1130 AC IV 01/22 1129 Oxycodone HCl 5 MG Q4H PRN PRN 12/23 1130 AC / PO 12/28 1129 0005 Oxycodone HCl 10 MG Q4H PRN PRN 12/23 1130 AC 0 12/26 PO 12/28 1129 2130 Paroxetine HCl 40 MG DAILY 12/23 0900 AC 12/26 PO 01/22 0859 0852 Pantoprazole 40 MG DAILY@0600 12/23 0600 AC PO 01/22 0559 0602 Recent Impressions-Last 72 Hrs RADIOLOGY - XR CHEST 1 V 12/24 0549 Report Impression - Status: SIGNED Entered: 12/24/2020 0812 IMPRESSION: 1. Extubation and nasogastric tube removal with slightly improved pulmonary aeration. 2. Persistent bilateral perihilar and bibasilar pulmonary opacities, probably representing atelectasis and or secreti ons. 3. Probable low-volume pleural fluid. SL: ER-H Impression By: [email or web address] Chelsy tian M.D. RADIOLOGY - XR CHEST 1 V 12/25 0704 Report Impression - Status: SIGNED Entered: 12/25/2020 0810 IMPRESSION: 1. Removal of right jugular line. 2. Otherwise stable chest. SL: [id number] Impression By: Charles Diaz RADIOLOGY - XR CHEST 1 V 12/26 0704 Report Impression - Status: SIGNED Entered: 12/26/2020 0957 IMPRESSION: Stable chest. SL: [id number] Impression By: Charles Diaz Vital Signs Date Temp Pulse Resp B/P B/P Mean Pulse Ox FiO2 12/26 36.9-37.6 73-85 18-24 110-148/52-78 0.0-1 00.9 94-97 Last Documented: Result Date Time Pulse Ox 97 12/26 1720 B/P 113/52 12/26 1720 B/P Mean 0.0 12/26 1720 O2 Delivery Nasal cannula 12/26 1720 Temp 36.9 12/26 1720 Pulse 79 12/26 1720 Resp 24 12/26 1720 O2 Flow Rate 3 12/26 0845 FiO2 40 12/25 1457 24 hour I O ending at 0700: 12/26 0700 12/25 1900 Intake Total Output Total 650 400 Balance -650 -400 Number 2 Bowel Movements Number Voids 1 2 Output, Urine 650 400 Patient 134.4 kg Weight Weight Standing scale Measurement Method PATIENT WEIGHT: Weight (lb): 296 Weight (oz): 4.82 Weight (kg): 134.400 Physical Exam General appearance: alert, awake Neck: no JVD Cardiovascular: regular rate rhythm Respiratory: decreased breath sounds, on oxygen Abdomen: normal bowel sounds, soft Genitourinary: no CVA tenderness Extremities: Extremities: decreased range of motion, edema 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 Patient und erwent the procedure well but needing coronary artery bypass graft due to mult iple vessel disease. 1. Status post left heart cath revealing multive ssel coronary artery disease 2. Chest pain/dyspnea on exertion 3. Hypertension 4. Diabetes mellitus type 2 5. Dyslipidemia statin 6. Morbid obesity 12/23/2020: Status post CABG x4 Patient postop Is awake complaining of pain Chest tubes x2 Duran catheter to bedside drainage No pressors December 24, 2020 Patient out of bed Transferred to [facility] 1 12/25/20 Patient notes that he is feeling fatigued and borden ving too much pain with ambulation Encourage ambulation and incentive spirometer Work with PT/OT We will discharge once cleared by cardiothoracic team 12/26/20 Patient with some anxiety Complains of shortness of breath when laying alirio n More comfortable sitting on a recliner Plan of care: Keep patient on telemetry Continue to monitor closely Glycemic control -SS we will add Lantus in a.m. DVT prophylaxis Lovenox Continue with current medications Repeat labs Pain control Continue with PT/OT We will repeat chest x-ray to evaluate for fluid overload Plan of care discussed with the patient, patient 's nurse, and Dr. Underwood. Jae Underwood 12/30/20 0705: Attestations Physician Attestation Agree w/findings plan: I agree with the findings and plan as documented by DOROTEO Yu. Plan of care coordinated with DOROTEO Yu. Pertinent labs, Imaging, and behavioral consultant evaluations reviewed. 65-year-old male presented f or elective left heart catheterization. He has some anxiety and he also complain s of shortness of breath when laying down, but he is more comfortable sitting on a recliner. We will continue with telemetry, glycemic control with sliding scale, DVT prophyl axis with Lovenox, current medications, repeat labs, pain control, and PT/OT. We will continue to monitor him closely. We will repeat chest x-ray to evalu ate for fluid overload. Electronically Signed by Junie Yu NP on 0 12/28/20 at 0747 Electronically Signed by Jae Jaffe MD o n 12/30/20 at 0723 RPT #:[id number] END OF REPORT 2020-12-26 10:57:00-00:00 [facility] Cardiothoracic Surgery Prog REPORT#:[id number] REPORT STATUS: Signed DATE:12/26/20 TIME: 1057 PATIENT: SONYA MINAYA UNIT #: [id number] ROOM/BED: [place] [address] : 53 AGE: 65 SEX: M ATTEND: Jae Jaffe MD ADM AUTHOR: Paresh Hernadez MD * ALL edits or amendments must be made on the [employer]/computer document * Subjective HPI: Doing well Hemodynamically stable Good pain control Still on supplemental oxygen Objective General VS/I O Last Documented: Result Date Time Temp 36.9 12/26 0850 Pulse Ox 94 12/26 0838 B/P 148/78 12/26 0838 B/P Mean 100.9 12/26 0838 Pulse 79 12/26 0838 Resp 20 12/26 0838 O2 Delivery Nasal cannula 12/26 0605 O2 Flow Rate 3 12/25 2100 FiO2 40 12/25 1457 24 hour I O ending at 0700: 12/26 0700 04 1900 Intake Total Output Total 650 400 Balance -650 -400 Number 2 Bowel Movements Number Voids 1 2 Output, Urine 650 400 Patient 134.4 kg Weight Weight Standing scale Measurement Method PATIENT WEIGHT: Weight (lb): 296 Weight (oz): 4.82 Weight (kg): 134.400 Physical Exam General appearance: alert, awake, oriented HEENT: anicteric, mucosal membranes moist Cardiovascular: BP/pulses equal bilat., normal h eart sounds, regular rate rhythm Respiratory: aerating well, clear to auscultatio n Abdomen: soft, non-tender, normal bowel sounds Genitourinary: no flank pain, no duran Extremities: dry, moves all 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, oriented X 3 Current Medications Medications: Active Meds + DC'd Last 24 Hrs Cyanocobalamin 500 MCG DAILY PO Ferrous Sulfate 325 MG DAILY PO Bisacodyl 10 MG ONCE PRN RECTAL Magnesium Hydroxide 30 ML ONCE PRN PO (DC) Fluticasone Propionate 1 SPRAY DAILY NASAL (CKD) Guaifenesin 600 MG Q12HR PO Hydralazine HCl 10 MG Q6H PRN PRN IV Sodium Chloride 0 ASDIR PRN IV Levalbuterol HCl 0.63 MG RTQ4H PRN PRN INH Loratadine 10 MG DAILY PRN PRN PO Atorvastatin Calcium 40 MG 2100 PO Insulin Human Lispro 0 AC HS SUBQ Clopidogrel Bisulfate 75 MG DAILY PO Polyethylene Glycol 17 GM DAILY PO Sodium Chloride 10 ML ASDIR IV Docusate Sodium 100 MG BID PO Senna 2 TAB BEDTIME PO (CKD) Amiodarone HCl 200 MG TID PO Mupirocin 1 APPLIC BID NASAL Acetaminophen 650 MG Q4H PRN PRN PO Dextrose/Water 25 ML ASDIR PRN IV (CKD) Dextrose/Water 50 ML ASDIR PRN IV (CKD) Glucagon 1 MG ASDIR PRN IM Magnesium Sulfate 100 ML ASDIR PRN IV Magnesium Sulfate 50 ML ASDIR PRN IV Magnesium Sulfate/Dextrose 100 ML ASDIR PRN IV Ondansetron HCl 4 MG Q6H PRN PRN IV Oxycodone HCl 5 MG Q4H PRN PRN PO Oxycodone HCl 10 MG Q4H PRN PRN PO Paroxetine HCl 40 MG DAILY PO Pantoprazole 40 MG DAILY@0600 PO Results Findings/Data: Laboratory Tests 12/26 12/26 12/25 12/25 12/25 0743 0520 2023 1615 1143 Chemistry Sodium (134 - 147 mEq/L) 138 Potassium (3.4 - 5.0 mEq/L) 3.4 Chloride (100 - 108 mEq/L) 103 Carbon Dioxide (21 - 33 mEq/l) 24 Anion Gap (0 - 20) 14 BUN (7 - 18 mg/dL) 13 Creatinine (0.6 - 1.3 mg/dL) 0.8 Glomerular Filtr Rate (80 - 90) 96.4 H Glucose (70 - 110 mg/dL) 149 H POC Glucose (70 - 110 MG/DL) 176 H 153 H 187 H 207 H Calcium (8.0 - 10.5 mg/dL) 8.6 Magnesium (1.80 - 2.40 mg/dL) 1.96 Total Bilirubin (0.0 - 1.0 mg/dL) 0.70 Direct Bilirubin (0.0 - 0.30 MG/DL) 0.30 Indirect Bilirubin (MG/DL) 0.40 AST (15 - 37 IUnit/L) 35 ALT (30 - 65 IUnit/L) 17 L Total Alk Phosphatase (20 - 125 IUnit/L) 54 Total Protein (6.4 - 8.2 g/dL) 6.2 L Albumin (3.4 - 5.0 g/dL) 3.20 L Laboratory Tests 12/26 0520 Hematology WBC (4.5 - 11.0 x10 3/uL) 10.0 RBC (4.00 - 5.60 x10 6/uL) 3.32 L Hgb (12.5 - 16.9 g/dL) 9.4 L Hct (37.5 - 50.7 %) 30.3 L MCV (81.0 - 99.0 fL) 91.3 MCH (27.0 - 33.0 pg) 28.3 MCHC (33.0 - 37.0 g/dL) 31.0 L RDW (11.5 - 14.5 %) 15.3 H Plt Count (150 - 400 x10 3/uL) 172 MPV (7.0 - 9.0 fL) 11.2 H Neut % (Auto) (56.0 - 77.0 %) 77.0 Lymph % (Auto) (14.0 - 32.0 %) 14.2 [place] % (Auto) (4.8 - 9.0 %) 7.5 Eos % (Auto) (0.3 - 3.7 %) 0.2 L Baso % (Auto) (0.0 - 2.0 %) 0.3 Neut # (Auto) (2.0 - 7.6 x10 3/uL) 7.73 H Lymph # (Auto) (1.0 - 3.8 x10 3/uL) 1.43 [place] # (Auto) (0.1 - 0.8 x10 3/uL) 0.75 Eos # (Auto) (0.0 - 0.2 x10 3/uL) 0.02 Baso # (Auto) (0.0 - 0.2 x10 3/uL) 0.03 Abs Immat Gran (auto) (0.00 - 0.03 x10 3/uL) 0. 08 H Add Manual Diff NO Immature Gran % (0.0 - 2.0 %) 0.8 Nucleated RBC % (0 - 0 %) 0.0 Nucleated RBCs # (Man) (0.0 - 0.1 x10 3/uL) 0.0 0 Diagnosis, Assessment Plan Hospital course to date: Wean oxygen as tolerated Ambulate Encourage incentive spirometry Discharge planning Probably home next 24 to 48 hours at 1058 RPT #:[id number] END OF REPORT 2020-12-26 09:54:00-00:00 [facility] Cardiology Progress Note REPORT#:[id number] REPORT STATUS: Signed DATE:12/26/20 TIME: 953 PATIENT: SONYA MINAYA UNIT #: [id number] ROOM/BED: [place] [address] : 53 AGE: 65 SEX: M ATTEND: Jae Jaffe MD ADM AUTHOR: Emily Zapata NP * ALL edits or amendments must be made on the [employer]/computer document * Subjective Chief Complaint: breathing better Comments: went into afib with RVR Objective General VS/I O: Laboratory Tests 12/26/20 0520: [Embedded Image Not Available] 12/25/20 0340: [Embedded Image Not Available] Current Medications Sig/Jero Start time Last Medication Dose Route Stop Time Status Admin Amiodarone HCl 200 ML ASDIR 04/04 1215 CKD IV 01/25 1214 Metoprolol Tartrate 25 MG Q12HR 12/26 1215 AC 0 12/26 PO 01/25 1214 1319 Amiodarone HCl 100 ML STAT STA 12/26 1205 DC IV 12/26 1214 1320 Cyanocobalamin 500 MCG DAILY 12/26 0900 AC 04/0 4 PO 01/25 0859 0853 Ferrous Sulfate 325 MG DAILY 12/26 0900 AC 04/0 4 PO 01/25 0859 0853 Bisacodyl 10 MG ONCE PRN 12/25 1200 AC RECTAL 01/24 1159 Fluticasone 1 SPRAY DAILY 12/25 0900 CKD 12/26 Propionate NASAL 01/24 0859 0855 Guaifenesin 600 MG Q12HR 12/25 0900 AC 12/26 PO 01/24 0859 0853 Hydralazine HCl 10 MG Q6H PRN PRN 12/25 0645 AC IV 01/24 0644 Sodium Chloride 0 ASDIR PRN 12/25 0645 AC IV 01/24 0644 Levalbuterol HCl 0.63 MG RTQ4H PRN PRN 12/25 04 30 AC 12/25 INH 01/24 0429 0551 Loratadine 10 MG DAILY PRN PRN 12/25 0430 AC 0 12/25 PO 01/24 0429 0454 Atorvastatin Calcium 40 MG 2100 12/24 2100 AC 0 12/25 PO 01/23 Insulin Human Lispro 0 AC HS 12/24 1630 AC 04/0 4 SUBQ 01/23 1629 1320 Clopidogrel Bisulfate 75 MG DAILY 12/24 0900 AC 12/26 PO 01/23 0859 0854 Polyethylene Glycol 17 GM DAILY 12/24 0900 AC 0 12/26 PO 01/23 0859 0852 Sodium Chloride 10 ML ASDIR 12/24 0800 AC IV 01/23 0759 Docusate Sodium 100 MG BID 12/23 2100 AC 12/26 PO 01/22 205 0853 Senna 2 TAB BEDTIME 12/23 2100 CKD 12/24 PO 01/22 2059 204 Amiodarone HCl 200 MG TID 12/23 1500 AC 12/26 PO 01/22 1459 0854 Mupirocin 1 APPLIC BID 12/23 1300 AC 12/26 NASAL 12/27 2101 0855 Acetaminophen 650 MG Q4H PRN PRN 12/23 1130 AC 12/24 PO 01/22 1129 2212 Dextrose/Water 25 ML ASDIR PRN 12/23 1130 CKD IV 01/22 1129 Dextrose/Water 50 ML ASDIR PRN 12/23 1130 CKD IV 01/22 1129 Glucagon 1 MG ASDIR PRN 12/23 1130 AC IM 01/22 1129 Magnesium Sulfate 100 ML ASDIR PRN 12/23 1130 A C IV 01/22 1129 Magnesium Sulfate 50 ML ASDIR PRN 12/23 1130 AC 12/24 IV 01/22 1129 0448 Magnesium Sulfate/ 100 ML ASDIR PRN 12/23 1130 AC Dextrose IV 01/22 1129 Ondansetron HCl 4 MG Q6H PRN PRN 12/23 1130 AC IV 01/22 1129 Oxycodone HCl 5 MG Q4H PRN PRN 12/23 1130 AC PO 12/28 1129 0005 Oxycodone HCl 10 MG Q4H PRN PRN 12/23 1130 AC 0 12/25 PO 12/28 1129 1620 Paroxetine HCl 40 MG DAILY 12/23 09 AC 12/26 PO 01/22 0859 0852 Pantoprazole 40 MG DAILY@0600 12/23 0600 AC PO 01/22 0559 0602 24 hour I O ending at 0700: 12/26 0700 12/25 1900 Intake Total Output Total 650 400 Balance -650 -400 Number 2 Bowel Movements Number Voids 1 2 Output, Urine 650 400 Patient 134.4 kg Weight Weight Standing scale Measurement Method Vital Signs: Date Time Temp Pulse Resp B/P B/P Pulse O2 O2 F low FiO2 Mean Ox Delivery Rate 12/26 1218 37.2 85 20 110/73 0.0 95 Nasal cannula 12/26 0850 36.9 04 0845 Room air 3 12/26 0838 79 20 148/78 100.9 94 12/26 0605 37.1 73 20 130/73 91.8 94 Nasal cannula 12/26 0015 37.6 79 18 135/73 0.0 94 Nasal cannula 12/25 2100 Nasal 3 cannula 12/25 2032 37.7 80 18 143/77 98.9 95 Nasal cannula 12/25 1739 37.3 78 20 126/69 88.0 94 Nasal cannula 12/25 1457 82 95 40 PATIENT WEIGHT: Weight (lb): 296 Weight (oz): 4.82 Weight (kg): 134.400 Physical Exam General appearance: alert, awake, oriented, no a cute distress Head/Eyes: atraumatic, PERRL Neck: full range of motion, non-tender, normal thyroid, supple/no meningismus, no bruit/NL carotids, no JVD, no lymphadenopathy , no masses or swelling Cardiovascular: CV assessment: regular rate and rhythm Respiratory: clear to auscultation, no distress Abdomen: non-tender, normal bowel sounds , no distention, no guarding, no mass/ organomegaly, no pulsatile mass, no rebound Upper extremity: UE assessment: normal capillary refill, no luis armando a 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 SL: [id number] Impression By: [email or web address] - Charles Sandhu Diagnosis, Assessment Plan Free Text DxA P Notes Free Text DxA P Notes: 1. Severe LM and three vessel CAD: S/P CABG post-op per CTS no longer on bipap, breathing improved b ut went into afib today- IV amiodarone started for 24 hours with po bb- monitor will give more lasix today as well asa, plavix, statin, bb 2. Obesity 3. HTN 4. Hyperlipedemia 5. NIDDM 6. Sleesp apnea Electronically Signed by Emily Zapata NP on 01/12 at 1356 RPT #:[id number] END OF REPORT 2020-12-26 09:54:00-00:00 [facility] REPORT#:[id number] REPORT STATUS: Signed DATE:12/26/20 TIME: 953 PATIENT: SONYA MINAYA UNIT #: [id number] ROOM/BED: [place] [address] : 53 AGE: 65 SEX: M ATTEND: Jae Jaffe MD ADM AUTHOR: Emily Zapata NP * ALL edits or amendments must be made on the [employer]/computer document * Subjective Chief Complaint: breathing better Comments: went into afib with RVR Objective General VS/I O: Laboratory Tests 12/26/20 0520: [Embedded Image Not Available] 12/25/20 0340: [Embedded Image Not Available] Current Medications Sig/Jero Start time Last Medication Dose Route Stop Time Status Admin Amiodarone HCl 200 ML ASDIR 12/26 1215 CKD IV 01/25 1214 Metoprolol Tartrate 25 MG Q12HR 12/26 1215 AC 0 12/26 PO 01/25 1214 1319 Amiodarone HCl 100 ML STAT STA 12/26 1205 DC IV 12/26 1214 1320 Cyanocobalamin 500 MCG DAILY 12/26 09 AC 4 PO 01/25 0859 0853 Ferrous Sulfate 325 MG DAILY 12/26 0900 AC 4 PO 01/25 0859 0853 Bisacodyl 10 MG ONCE PRN 12/25 1200 AC RECTAL 01/24 1159 Fluticasone 1 SPRAY DAILY 12/25 09 CKD 12/26 Propionate NASAL 01/24 0859 0855 Guaifenesin 600 MG Q12HR 12/25 0900 AC 12/26 PO 01/24 0859 0853 Hydralazine HCl 10 MG Q6H PRN PRN 12/25 0645 AC IV 01/24 0644 Sodium Chloride 0 ASDIR PRN 12/25 0645 AC IV 01/24 0644 Levalbuterol HCl 0.63 MG RTQ4H PRN PRN 12/25 04 30 AC 12/25 INH 01/24 0429 0551 Loratadine 10 MG DAILY PRN PRN 12/25 0430 AC PO 01/24 0429 0454 Atorvastatin Calcium 40 MG 2100 12/24 2100 AC 0 12/25 PO 01/23 2059 210 Insulin Human Lispro 0 AC HS 12/24 1630 AC 04 4 SUBQ 01/23 1629 1320 Clopidogrel Bisulfate 75 MG DAILY 12/24 0900 AC 12/26 PO 01/23 0859 0854 Polyethylene Glycol 17 GM DAILY 12/24 0900 AC 0 12/26 PO 01/23 0859 0852 Sodium Chloride 10 ML ASDIR 12/24 0800 AC IV 01/23 0759 Docusate Sodium 100 MG BID 12/23 2100 AC 12/26 PO 01/22 2059 0853 Senna 2 TAB BEDTIME 12/23 2100 CKD 12/24 PO 01/22 Amiodarone HCl 200 MG TID 12/23 1500 AC 12/26 PO 01/22 1459 0854 Mupirocin 1 APPLIC BID 12/23 1300 AC 12/26 NASAL 12/27 210 0855 Acetaminophen 650 MG Q4H PRN PRN 12/23 1130 AC 12/24 PO 01/22 1129 2212 Dextrose/Water 25 ML ASDIR PRN 12/23 1130 CKD IV 01/22 1129 Dextrose/Water 50 ML ASDIR PRN 12/23 1130 CKD IV 01/22 1129 Glucagon 1 MG ASDIR PRN 12/23 1130 AC IM 01/22 1129 Magnesium Sulfate 100 ML ASDIR PRN 12/23 1130 A C IV 01/22 1129 Magnesium Sulfate 50 ML ASDIR PRN 12/23 1130 AC 12/24 IV 01/22 1129 0448 Magnesium Sulfate/ 100 ML ASDIR PRN 12/23 1130 AC Dextrose IV 01/22 1129 Ondansetron HCl 4 MG Q6H PRN PRN 12/23 1130 AC IV 01/22 1129 Oxycodone HCl 5 MG Q4H PRN PRN 12/23 1130 AC PO 12/28 1129 0005 Oxycodone HCl 10 MG Q4H PRN PRN 12/23 1130 AC 0 12/25 PO 12/28 1129 1620 Paroxetine HCl 40 MG DAILY 12/23 09 AC 12/26 PO 01/22 0859 0852 Pantoprazole 40 MG DAILY@12/23 0600 AC PO 01/22 0559 0602 24 hour I O ending at 0700: 12/26 0700 12/25 1900 Intake Total Output Total 650 400 Balance -650 -400 Number 2 Bowel Movements Number Voids 1 2 Output, Urine 650 400 Patient 134.4 kg Weight Weight Standing scale Measurement Method Vital Signs: Date Time Temp Pulse Resp B/P B/P Pulse O2 O2 Flow FiO2 Mean Ox Delivery Rate 12/26 1218 37.2 85 20 110/73 0.0 95 Nasal cannula 12/26 0850 36.9 12/26 0845 Room air 3 12/26 0838 79 20 148/78 100.9 94 12/26 0605 37.1 73 20 130/73 91.8 94 Nasal cannula 12/26 0015 37.6 79 18 135/73 0.0 94 Nasal cannula 12/25 2100 Nasal 3 cannula 12/26 2031 37.7 80 18 143/77 98.9 95 Nasal cannula 12/25 1739 37.3 78 20 126/69 88.0 94 Nasal cannula 12/25 1457 82 95 40 PATIENT WEIGHT: Weight (lb): 296 Weight (oz): 4.82 Weight (kg): 134.400 Physical Exam General appearance: alert, awake, oriented, no a cute distress Head/Eyes: atraumatic, PERRL Neck: full range of motion, non-tender, normal thyroid, supple/no meningismus, no bruit/NL carotids, no JVD, no lymphadenopathy , no masses or swelling Cardiovascular: CV assessment: regular rate and rhythm Respiratory: clear to auscultation, no distress Abdomen: non-tender, normal bowel sounds , no distention, no guarding, no mass/ organomegaly, no pulsatile mass, no rebound Upper extremity: UE assessment: normal capillary refill, no luis armando a 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 Skin: dry, intact Results Radiology data: Recent Impressions: RADIOLOGY - XR CHEST 1 V 12/26 0704 Report Impression - Status: SIGNED Entered: 12/26/2020 0957 IMPRESSION: Stable chest. SL: [id number] Impression By: [email or web address] - Charles Sandhu Diagnosis, Assessment Plan Free Text DxA P Notes Free Text DxA P Notes: 1. Severe LM and three vessel CAD: S/P CABG post-op per CTS no longer on bipap, breathing improved b ut went into afib today- IV amiodarone started for 24 hours with po bb- monitor will give more lasix today as well asa, plavix, statin, bb 2. Obesity 3. HTN 4. Hyperlipedemia 5. NIDDM 6. Sleesp apnea Electronically Signed by Emily Zapata NP on 01/12 at 1356 at 0940 RPT #:[id number] END OF REPORT 2020-12-25 23:51:00-00:00 [facility] ([facility]) Clinical Note REPORT#:[id number] REPORT STATUS: Signed DATE:12/25/20 TIME: 2350 PATIENT: SONYA MINAYA UNIT #: [id number] ROOM/BED: [place] [address] : 53 AGE: 65 SEX: M ATTEND: Jae Jaffe MD ADM AUTHOR: Jae Jaffe MD * ALL edits or amendments must be made on the [employer] document * Clinical Note Note: Events noted Electronically Signed by Jae Jaffe MD n 12/28/20 at 1420 RPT #:[id number] END OF REPORT 2020-12-25 23:43:00-00:00 [facility] ([facility]) Internal Medicine Prog. Note REPORT#:[id number] REPORT STATUS: Signed DATE:12/25/20 TIME: 2342 PATIENT: SONYA MINAYA UNIT #: [id number] ROOM/BED: [place] [address] : 53 AGE: 65 SEX: M ATTEND: Jae Jaffe MD ADM AUTHOR: Junie Yu MEDICINE ASSISTANT * ALL edits or amendments must be made on the [employer] document * Subjective Chief Complaint: Visit coronary artery disease Status post CABG x4 Review of Systems Constitutional: Denies: chills, fever. ENT: Reports: sore throat. Denies: earache, nasal con gestion. Respiratory: Reports: FREEMAN (dyspnea on exe rtion). Denies: hemoptysis, parox nocturnal dyspnea , pleurisy, pleuritic pain, pneumonia, SOB, whee zing. Cardiovascular: Reports: chest pain. Denies: palpitations. GI: Denies: abdominal pain, nausea, vomiting. : Reports: other. Musculoskeletal: Reports: extremity pain, extremity swelling. Den ies: joint pain, lumbar pain, neck pain. Neuro: Denies: focal weakness, headache, slurred speech . Psych: Denies: agitation, anxiety, auditory hallucinati on, change in mental status, confusion, delusional, depre ssion, homicidal ideation, hostile, insomnia, stress , suicidal ideation, visual hallucination. Objective General VS/I O: Vital Signs Date Temp Pulse Resp B/P B/P Mean Pulse Ox FiO2 12/25 36.8-37.7 78-97 12-30 126-155/69-82 88.0- 106.6 88-100 40 Last Documented: Result Date Time O2 Delivery Nasal cannula 12/25 2099 O2 Flow Rate 3 12/25 2099 Pulse Ox 95 12/26 2031 B/P 143/77 12/26 2031 B/P Mean 98.9 12/26 2031 Temp 37.7 12/26 2031 Pulse 80 12/26 2031 Resp 18 12/26 2031 FiO2 40 12/25 1457 24 hour I O ending at 0700: 12/25 0700 12/24 1900 Intake Total 480 Output Total 700 Balance -220 Intake, Oral 480 Number 2 Incontinent Voids Number Voids 1 Output, Chest 140 Tube Drainage Output, Urine 560 Patient 136.6 kg 130.181 kg Weight Weight Bed scale Measurement Method PATIENT WEIGHT: Weight (lb): 301 Weight (oz): 2.42 Weight (kg): 136.600 Physical Exam General appearance: alert, awake Neck: no JVD Cardiovascular: regular rate rhythm Respiratory: decreased breath sounds, on oxygen Abdomen: normal bowel sounds, soft Genitourinary: no CVA tenderness Extremities: Extremities: decreased range of motion, edema 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 Patient und erwent the procedure well but needing coronary artery bypass graft due to mult iple vessel disease. 1. Status post left heart cath revealing multive ssel coronary artery disease 2. Chest pain/dyspnea on exertion 3. Hypertension 4. Diabetes mellitus type 2 5. Dyslipidemia statin 6. Morbid obesity 12/23/2020: Status post CABG x4 Patient postop Is awake complaining of pain Chest tubes x2 Duran catheter to bedside drainage No pressors December 24, 2020 Patient out of bed Transferred to [facility] 1 12/25/20 Patient notes that he is feeling fatigued and borden ving too much pain with ambulation Encourage ambulation and incentive spirometer Work with PT/OT We will discharge once cleared by cardiothoracic team Plan of care: Keep patient on telemetry Continue to monitor closely Glycemic control -SS DVT prophylaxis Lovenox Continue with current medications Repeat labs Pain control Continue with PT/OT Plan of care discussed with the patient, patient 's nurse, and Dr. Underwood. Electronically Signed by Junie Yu MEDICINE ASSISTANT on 0 12/27/20 at 0458 RPT #:[id number] END OF REPORT 2020-12-25 23:43:00-00:00 [facility] Internal Medicine Prog. Note REPORT#:[id number] REPORT STATUS: Signed DATE:12/25/20 TIME: 2342 PATIENT: SONYA MINAYA UNIT #: [id number] ROOM/BED: [place] [address] : 53 AGE: 65 SEX: M ATTEND: Jae Jaffe MD ADM AUTHOR: Junie Yu MEDICINE ASSISTANT * ALL edits or amendments must be made on the [employer]/computer document * Junie Yu 12/25/20 2343: Subjective Chief Complaint: Visit coronary artery disease Status post CABG x4 Review of Systems Constitutional: Denies: chills, fever. ENT: Reports: sore throat. Denies: earache, nasal con gestion. Respiratory: Reports: FREEMAN (dyspnea on exe rtion). Denies: hemoptysis, parox nocturnal dyspnea , pleurisy, pleuritic pain, pneumonia, SOB, whee zing. Cardiovascular: Reports: chest pain. Denies: palpitations. GI: Denies: abdominal pain, nausea, vomiting. : Reports: other. Musculoskeletal: Reports: extremity pain, extremity swelling. Den ies: joint pain, lumbar pain, neck pain. Neuro: Denies: focal weakness, headache, slurred speech . Psych: Denies: agitation, anxiety, auditory hallucinati on, change in mental status, confusion, delusional, depre ssion, homicidal ideation, hostile, insomnia, stress , suicidal ideation, visual hallucination. Objective General VS/I O: Vital Signs Date Temp Pulse Resp B/P B/P Mean Pulse Ox FiO2 12/25 36.8-37.7 78-97 12-30 126-155/69-82 88.0- 106.6 88-100 40 Last Documented: Result Date Time O2 Delivery Nasal cannula 12/25 2099 O2 Flow Rate 3 12/25 2099 Pulse Ox 95 12/26 2031 B/P 143/77 12/26 2031 B/P Mean 98.9 12/26 2031 Temp 37.7 12/26 2031 Pulse 80 12/26 2031 Resp 18 12/26 2031 FiO2 40 12/25 1457 24 hour I O ending at 0700: 12/25 0700 12/24 1900 Intake Total 480 Output Total 700 Balance -220 Intake, Oral 480 Number 2 Incontinent Voids Number Voids 1 Output, Chest 140 Tube Drainage Output, Urine 560 Patient 136.6 kg 130.181 kg Weight Weight Bed scale Measurement Method PATIENT WEIGHT: Weight (lb): 301 Weight (oz): 2.42 Weight (kg): 136.600 Physical Exam General appearance: alert, awake Neck: no JVD Cardiovascular: regular rate rhythm Respiratory: decreased breath sounds, on oxygen Abdomen: normal bowel sounds, soft Genitourinary: no CVA tenderness Extremities: Extremities: decreased range of motion, edema 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 Patient und erwent the procedure well but needing coronary artery bypass graft due to mult iple vessel disease. 1. Status post left heart cath revealing multive ssel coronary artery disease 2. Chest pain/dyspnea on exertion 3. Hypertension 4. Diabetes mellitus type 2 5. Dyslipidemia statin 6. Morbid obesity 12/23/2020: Status post CABG x4 Patient postop Is awake complaining of pain Chest tubes x2 Duran catheter to bedside drainage No pressors December 24, 2020 Patient out of bed Transferred to N 1 12/25/20 Patient notes that he is feeling fatigued and borden ving too much pain with ambulation Encourage ambulation and incentive spirometer Work with PT/OT We will discharge once cleared by cardiothoracic team Plan of care: Keep patient on telemetry Continue to monitor closely Glycemic control -SS DVT prophylaxis Lovenox Continue with current medications Repeat labs Pain control Continue with PT/OT Plan of care discussed with the patient, patient 's nurse, and Dr. Underwood. Jae Underwood 12/29/20 0805: Attestations Physician Attestation Agree w/findings plan: I agree with the findings and plan as documented by DOROTEO Yu. Plan of care coordinated with DOROTEO Yu. Pertinent labs, Imaging, and behavioral consultant evaluations reviewed. 65-year-old male presented for elective left hea rt catheterization. He states that he is feeling fatigued and having too much pain with ambulation. We have encouraged him ambulation an d incentive spirometer and continue to work with PT/ OT. We will discharge once cleared by cardiothor acic team. We will continue with telemetry, glycemic control with sliding sc rod, DVT prophylaxis with Lovenox, current medications, repeat labs, pain control, and PT/OT. We will continue to monitor him closely. Electronically Signed by Junie Yu NP on 0 12/27/20 at 0458 RPT #:[id number] END OF REPORT 2020-12-25 23:43:00-00:00 [facility] REPORT#:[id number] REPORT STATUS: Signed DATE:12/25/20 TIME: 2342 PATIENT: SONYA MINAYA UNIT #: [id number] ROOM/BED: [address] : 53 AGE: 65 SEX: M ATTEND: Jae Jaffe MD ADM AUTHOR: Junie Yu NP * ALL edits or amendments must be made on the [employer]/computer document * Junie Yu 12/25/20 2343: Subjective Chief Complaint: Visit coronary artery disease Status post CABG x4 Review of Systems Constitutional: Denies: chills, fever. ENT: Reports: sore throat. Denies: earache, nasal con gestion. Respiratory: Reports: FREEMAN (dyspnea on exe rtion). Denies: hemoptysis, parox nocturnal dyspnea , pleurisy, pleuritic pain, pneumonia, SOB, whee zing. Cardiovascular: Reports: chest pain. Denies: palpitations. GI: Denies: abdominal pain, nausea, vomiting. : Reports: other. Musculoskeletal: Reports: extremity pain, extremity swelling. Den ies: joint pain, lumbar pain, neck pain. Neuro: Denies: focal weakness, headache, slurred speech . Psych: Denies: agitation, anxiety, auditory hallucinati on, change in mental status, confusion, delusional, depre ssion, homicidal ideation, hostile, insomnia, stress , suicidal ideation, visual hallucination. Objective General VS/I O: Vital Signs Date Temp Pulse Resp B/P B/P Mean Pulse Ox FiO2 12/25 36.8-37.7 78-97 12-30 126-155/69-82 88.0- 106.6 88-100 40 Last Documented: Result Date Time O2 Delivery Nasal cannula 12/25 2099 O2 Flow Rate 3 12/25 2099 Pulse Ox 95 12/26 2031 B/P 143/77 12/26 2031 B/P Mean 98.9 12/26 2031 Temp 37.7 12/26 2031 Pulse 80 12/26 2031 Resp 18 12/26 2031 FiO2 40 12/25 1457 24 hour I O ending at 0700: 12/25 0700 12/24 1900 Intake Total 480 Output Total 700 Balance -220 Intake, Oral 480 Number 2 Incontinent Voids Number Voids 1 Output, Chest 140 Tube Drainage Output, Urine 560 Patient 136.6 kg 130.181 kg Weight Weight Bed scale Measurement Method PATIENT WEIGHT: Weight (lb): 301 Weight (oz): 2.42 Weight (kg): 136.600 Physical Exam General appearance: alert, awake Neck: no JVD Cardiovascular: regular rate rhythm Respiratory: decreased breath sounds, on oxygen Abdomen: normal bowel sounds, soft Genitourinary: no CVA tenderness Extremities: Extremities: decreased range of motion, edema 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 Patient und erwent the procedure well but needing coronary artery bypass graft due to mult iple vessel disease. 1. Status post left heart cath revealing multive ssel coronary artery disease 2. Chest pain/dyspnea on exertion 3. Hypertension 4. Diabetes mellitus type 2 5. Dyslipidemia statin 6. Morbid obesity 12/23/2020: Status post CABG x4 Patient postop Is awake complaining of pain Chest tubes x2 Duran catheter to bedside drainage No pressors December 24, 2020 Patient out of bed Transferred to N 1 12/25/20 Patient notes that he is feeling fatigued and borden ving too much pain with ambulation Encourage ambulation and incentive spirometer Work with PT/OT We will discharge once cleared by cardiothoracic team Plan of care: Keep patient on telemetry Continue to monitor closely Glycemic control -SS DVT prophylaxis Lovenox Continue with current medications Repeat labs Pain control Continue with PT/OT Plan of care discussed with the patient, patient 's nurse, and Dr. Underwood. Jae Underwood 12/29/20 1437: Attestations Physician Attestation Agree w/findings plan: I agree with the findings and plan as documented by DOROTEO Yu. Plan of care coordinated with DOROTEO Yu. Pertinent labs, Imaging, and behavioral consultant evaluations reviewed. 65-year-old male presented for elective left hea rt catheterization. He states that he is feeling fatigued and having too much pain with ambulation. We have encouraged him ambulation an d incentive spirometer and continue to work with PT/ OT. We will discharge once cleared by cardiothor acic team. We will continue with telemetry, glycemic control with sliding sc rod, DVT prophylaxis with Lovenox, current medications, repeat labs, pain control, and PT/OT. We will continue to monitor him closely. Electronically Signed by Junie Yu NP on 0 12/27/20 at 0458 RPT #:[id number] END OF REPORT 2020-12-25 23:43:00-00:00 [facility]g. [facility] REPORT#:[id number] REPORT STATUS: Signed DATE:12/25/20 TIME: 2342 PATIENT: SONYA MINAYA UNIT #: [id number] ROOM/BED: [address] : 53 AGE: 65 SEX: M ATTEND: Jae Christianson MD ADM AUTHOR: Junie Yu MEDICINE ASSISTANT * ALL edits or amendments must be made on the [employer]/computer document * Junie Yu 12/25/20 2343: Subjective Chief Complaint: Visit coronary artery disease Status post CABG x4 Review of Systems Constitutional: Denies: chills, fever. ENT: Reports: sore throat. Denies: earache, nasal con gestion. Respiratory: Reports: FREEMAN (dyspnea on exe rtion). Denies: hemoptysis, parox nocturnal dyspnea , pleurisy, pleuritic pain, pneumonia, SOB, whee zing. Cardiovascular: Reports: chest pain. Denies: palpitations. GI: Denies: abdominal pain, nausea, vomiting. : Reports: other. Musculoskeletal: Reports: extremity pain, extremity swelling. Den ies: joint pain, lumbar pain, neck pain. Neuro: Denies: focal weakness, headache, slurred speech . Psych: Denies: agitation, anxiety, auditory hallucinati on, change in mental status, confusion, delusional, depre ssion, homicidal ideation, hostile, insomnia, stress , suicidal ideation, visual hallucination. Objective General VS/I O: Vital Signs Date Temp Pulse Resp B/P B/P Mean Pulse Ox FiO2 12/25 36.8-37.7 78-97 12-30 126-155/69-82 88.0- 106.6 88-100 40 Last Documented: Result Date Time O2 Delivery Nasal cannula 12/25 2099 O2 Flow Rate 3 12/25 2099 Pulse Ox 95 12/26 2031 B/P 143/77 12/26 2031 B/P Mean 98.9 12/26 2031 Temp 37.7 12/26 2031 Pulse 80 12/26 2031 Resp 18 12/26 2031 FiO2 40 12/25 1457 24 hour I O ending at 0700: 12/25 0700 12/24 1900 Intake Total 480 Output Total 700 Balance -220 Intake, Oral 480 Number 2 Incontinent Voids Number Voids 1 Output, Chest 140 Tube Drainage Output, Urine 560 Patient 136.6 kg 130.181 kg Weight Weight Bed scale Measurement Method PATIENT WEIGHT: Weight (lb): 301 Weight (oz): 2.42 Weight (kg): 136.600 Physical Exam General appearance: alert, awake Neck: no JVD Cardiovascular: regular rate rhythm Respiratory: decreased breath sounds, on oxygen Abdomen: normal bowel sounds, soft Genitourinary: no CVA tenderness Extremities: Extremities: decreased range of motion, edema 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 Patient und erwent the procedure well but needing coronary artery bypass graft due to mult iple vessel disease. 1. Status post left heart cath revealing multive ssel coronary artery disease 2. Chest pain/dyspnea on exertion 3. Hypertension 4. Diabetes mellitus type 2 5. Dyslipidemia statin 6. Morbid obesity 12/23/2020: Status post CABG x4 Patient postop Is awake complaining of pain Chest tubes x2 Duran catheter to bedside drainage No pressors December 24, 2020 Patient out of bed Transferred to [facility] 1 12/25/20 Patient notes that he is feeling fatigued and borden ving too much pain with ambulation Encourage ambulation and incentive spirometer Work with PT/OT We will discharge once cleared by cardiothoracic team Plan of care: Keep patient on telemetry Continue to monitor closely Glycemic control -SS DVT prophylaxis Lovenox Continue with current medications Repeat labs Pain control Continue with PT/OT Plan of care discussed with the patient, patient 's nurse, and Dr. Underwood. Jae Underwood 12/29/20 5921: Attestations Physician Attestation Agree w/findings plan: I agree with the findings and plan as documented by DOROTEO Yu. Plan of care coordinated with DOROTEO Yu. Pertinent labs, Imaging, and behavioral consultant evaluations reviewed. 65-year-old male presented for elective left hea rt catheterization. He states that he is feeling fatigued and having too much pain with ambulation. We have encouraged him ambulation an d incentive spirometer and continue to work with PT/ OT. We will discharge once cleared by cardiothor acic team. We will continue with telemetry, glycemic control with sliding sc rod, DVT prophylaxis with Lovenox, current medications, repeat labs, pain control, and PT/OT. We will continue to monitor him closely. Electronically Signed by Junie Yu NP on 0 12/27/20 at 0458 Electronically Signed by Jae Jaffe MD o n 12/30/20 at 0729 RPT #:[id number] END OF REPORT 2020-12-25 14:22:00-00:00 [facility] Cardiology Progress Note REPORT#:[id number] REPORT STATUS: Signed DATE:12/25/20 TIME: 1421 PATIENT: SONYA MINAYA UNIT #: [id number] ROOM/BED: [place] [address] : 53 AGE: 65 SEX: M ATTEND: Jae Jaffe MD ADM AUTHOR: Emily Zapata NP * ALL edits or amendments must be made on the [employer]/computer document * Subjective Chief Complaint: on bipap Objective General VS/I O: Laboratory Tests 12/25/20 0340: [Embedded Image Not Available] 12/24/20 0300: [Embedded Image Not Available] 12/23/20 2106: [Embedded Image Not Available] Current Medications Sig/Jero Start time Last Medication Dose Route Stop Time Status Admin Cyanocobalamin 500 MCG DAILY 12/26 0900 AC PO 01/25 0859 Ferrous Sulfate 325 MG DAILY 12/26 0900 AC PO 01/25 0859 Bisacodyl 10 MG ONCE PRN 12/25 1200 AC RECTAL 01/24 1159 Magnesium Hydroxide 30 ML ONCE PRN 12/25 1200 D C 12/25 PO 1206 Furosemide 40 MG ONCE ONE 12/25 1045 DC 12/25 IV 12/25 1046 1101 Potassium Chloride 20 MEQ ONCE ONE 12/25 1000 D C 12/25 PO 12/25 1001 1101 Fluticasone 1 SPRAY DAILY 12/25 0900 CKD 12/25 Propionate NASAL 01/24 0859 0841 Guaifenesin 600 MG Q12HR 12/25 0900 AC 12/25 PO 01/24 0859 0839 Metoprolol Tartrate 12.5 MG NOW ONE 12/25 0715 DC 12/25 PO 12/25 0716 0743 Hydralazine HCl 10 MG Q6H PRN PRN 12/25 0645 AC IV 01/24 0644 Lorazepam 0.5 MG ONCE ONE 12/25 0645 DC 12/25 IV 12/25 0646 0647 Sodium Chloride 0 ASDIR PRN 12/25 0645 AC IV 01/24 0644 Levalbuterol HCl 0.63 MG RTQ4H PRN PRN 12/25 04 30 AC 12/25 INH 01/24 0429 0551 Loratadine 10 MG DAILY PRN PRN 12/25 0430 AC PO 01/24 0429 0454 Atorvastatin Calcium 40 MG 2100 12/24 2100 AC 0 12/24 PO 01/23 Insulin Human Lispro 0 AC HS 12/24 1630 AC 3 SUBQ 01/23 1629 1206 Clopidogrel Bisulfate 75 MG DAILY 12/24 0900 AC 12/25 PO 01/23 0859 0839 Polyethylene Glycol 17 GM DAILY 12/24 0900 AC 12/25 PO 01/23 0859 0839 Sodium Chloride 10 ML ASDIR 12/24 0800 AC IV 01/23 0759 Docusate Sodium 100 MG BID 12/23 2100 AC 12/25 PO 01/22 2059 0839 Senna 2 TAB BEDTIME 12/23 2100 CKD 12/24 PO 01/22 2059 204 Amiodarone HCl 200 MG TID 12/23 1500 AC 12/25 PO 01/22 1459 0839 Mupirocin 1 APPLIC BID 12/23 1300 AC 12/25 NASAL 12/27 2101 0841 Acetaminophen 650 MG Q4H PRN PRN 12/23 1130 AC 12/24 PO 01/22 1129 2212 Dextrose/Water 25 ML ASDIR PRN 12/23 1130 CKD IV 01/22 1129 Dextrose/Water 50 ML ASDIR PRN 12/23 1130 CKD IV 01/22 1129 Glucagon 1 MG ASDIR PRN 12/23 1130 AC IM 01/22 1129 Magnesium Sulfate 100 ML ASDIR PRN 12/23 1130 A C IV 01/22 1129 Magnesium Sulfate 50 ML ASDIR PRN 12/23 1130 AC 12/24 IV 01/22 1129 0448 Magnesium Sulfate/ 100 ML ASDIR PRN 12/23 1130 AC Dextrose IV 01/22 1129 Ondansetron HCl 4 MG Q6H PRN PRN 12/23 1130 AC IV 01/22 1129 Oxycodone HCl 5 MG Q4H PRN PRN 12/23 1130 AC PO 12/28 1129 Oxycodone HCl 10 MG Q4H PRN PRN 12/23 1130 AC 0 12/24 PO 12/28 1129 0923 Paroxetine HCl 40 MG DAILY 12/23 09 AC 12/25 PO 01/22 0859 0838 Pantoprazole 40 MG DAILY@0600 12/23 06 AC PO 01/22 0559 0743 24 hour I O ending at 0700: 12/25 0712/24 1900 Intake Total 480 Output Total 700 Balance -220 Intake, Oral 480 Number 2 Incontinent Voids Number Voids 1 Output, Chest 140 Tube Drainage Output, Urine 560 Patient 136.6 kg 130.181 kg Weight Weight Bed scale Measurement Method Vital Signs: Date Time Temp Pulse Resp B/P B/P Pulse O2 O2 F low FiO2 Mean Ox Delivery Rate 12/25 0917 BiPAP 12/25 0813 36.8 84 12 155/78 103.9 90 BiPAP mas k 12/25 0719 81 99 40 12/25 0628 37.7 97 30 155/82 106.6 96 Simple mask 12/25 0617 100 Non 15 rebreather mask 12/25 0040 37.0 84 20 126/70 88.7 88 Nasal cannula 12/24 2313 87 90 Nasal 4 cannula 12/24 2216 88 93 Nasal 5 cannula 12/24 2047 37.6 83 24 124/71 88.5 92 Nasal 5 cannula 12/24 2030 Nasal 5 cannula 12/24 1628 37.1 83 20 124/73 89.7 86 PATIENT WEIGHT: Weight (lb): 301 Weight (oz): 2.42 Weight (kg): 136.600 Physical Exam General appearance: respiratory support Neck: full range of motion, non-tender, normal thyroid, supple/no meningismus, no bruit/NL carotids, no JVD, no lymphadenopathy , no masses or swelling Cardiovascular: CV assessment: regular rate and rhythm Respiratory: clear to auscultation, no distress Abdomen: non-tender, normal bowel sounds , no distention, no guarding, no mass/ organomegaly, no pulsatile mass, no rebound Upper extremity: UE assessment: normal capillary refill, no luis armando a Neuro/FELLER BUNCHER OPERATOR: disoriented Skin: dry, intact Results Radiology data: Recent Impressions: RADIOLOGY - XR CHEST 1 V 12/25 0704 Report Impression - Status: SIGNED Entered: 12/25/2020 08 IMPRESSION: 1. Removal of right jugular line. 2. Otherwise stable chest. SL: [id number] Impression By: [email or web address] - Charles Sandhu Diagnosis, Assessment Plan Free Text DxA P Notes Free Text DxA P Notes: 1. Severe LM and three vessel CAD: S/P CABG post-op per CTS pt is on bipap this morning, cxr reviewed- will give a dose of lasix today asa, plavix, statin monitor, continue supportive care 2. Obesity 3. HTN 4. Hyperlipedemia 5. NIDDM 6. Sleesp apnea Electronically Signed by Emily Zapata NP on 12/12 at 1426 RPT #:[id number] END OF REPORT 2020-12-25 14:22:00-00:00 [facility] Cardiology Progress Note REPORT#:[id number] REPORT STATUS: Signed DATE:12/25/20 TIME: 1422 PATIENT: SONYA MINAYA UNIT #: [id number] ROOM/BED: [place] [address] : 53 AGE: 65 SEX: M ATTEND: Jae Jaffe MD ADM AUTHOR: Emily Zapata NP * ALL edits or amendments must be made on the [employer]/computer document * Subjective Chief Complaint: on bipap Objective General VS/I O: Laboratory Tests 12/25/20 0340: [Embedded Image Not Available] 12/24/20 0300: [Embedded Image Not Available] 12/23/20 2106: [Embedded Image Not Available] Current Medications Sig/Jero Start time Last Medication Dose Route Stop Time Status Admin Cyanocobalamin 500 MCG DAILY 12/26 09 AC PO 01/25 0859 Ferrous Sulfate 325 MG DAILY 12/26 0900 AC PO 01/25 0859 Bisacodyl 10 MG ONCE PRN 12/25 1200 AC RECTAL 01/24 1159 Magnesium Hydroxide 30 ML ONCE PRN 12/25 1200 D C 12/25 PO 1206 Furosemide 40 MG ONCE ONE 12/25 1045 DC 12/25 IV 12/25 1046 1101 Potassium Chloride 20 MEQ ONCE ONE 12/25 1000 D C 12/25 PO 12/25 1001 1101 Fluticasone 1 SPRAY DAILY 12/25 0900 CKD 12/25 Propionate NASAL 01/24 0859 0841 Guaifenesin 600 MG Q12HR 12/25 0900 AC 12/25 PO 01/24 0859 0839 Metoprolol Tartrate 12.5 MG NOW ONE 12/25 0715 DC 12/25 PO 12/25 0716 0743 Hydralazine HCl 10 MG Q6H PRN PRN 12/25 0645 AC IV 01/24 0644 Lorazepam 0.5 MG ONCE ONE 12/25 0645 DC 12/25 IV 12/25 0646 0647 Sodium Chloride 0 ASDIR PRN 12/25 0645 AC IV 01/24 0644 Levalbuterol HCl 0.63 MG RTQ4H PRN PRN 12/25 04 30 AC 12/25 INH 01/24 0429 0551 Loratadine 10 MG DAILY PRN PRN 12/25 0430 AC PO 01/24 0429 0454 Atorvastatin Calcium 40 MG 2100 12/24 2100 AC 0 12/24 PO 01/23 Insulin Human Lispro 0 AC HS 12/24 1630 AC 04 3 SUBQ 01/23 1629 1206 Clopidogrel Bisulfate 75 MG DAILY 12/24 0900 A C 12/25 PO 01/23 0859 0839 Polyethylene Glycol 17 GM DAILY 12/24 0900 AC 0 12/25 PO 01/23 0859 0839 Sodium Chloride 10 ML ASDIR 12/24 0800 AC IV 01/23 0759 Docusate Sodium 100 MG BID 12/23 2100 AC 12/25 PO 01/22 205 0839 Senna 2 TAB BEDTIME 12/23 2100 CKD 12/24 PO 01/22 205 204 Amiodarone HCl 200 MG TID 12/23 1500 AC 12/25 PO 01/22 1459 0839 Mupirocin 1 APPLIC BID 12/23 1300 AC 12/25 NASAL 12/27 2101 0841 Acetaminophen 650 MG Q4H PRN PRN 12/23 1130 AC 12/24 PO 01/22 1129 2212 Dextrose/Water 25 ML ASDIR PRN 12/23 1130 CKD IV 01/22 1129 Dextrose/Water 50 ML ASDIR PRN 12/23 1130 CKD IV 01/22 1129 Glucagon 1 MG ASDIR PRN 12/23 1130 AC IM 01/22 1129 Magnesium Sulfate 100 ML ASDIR PRN 12/23 1130 A C IV 01/22 1129 Magnesium Sulfate 50 ML ASDIR PRN 12/23 1130 AC /02 IV 01/22 1129 0448 Magnesium Sulfate/ 100 ML ASDIR PRN 12/23 1130 AC Dextrose IV 01/22 1129 Ondansetron HCl 4 MG Q6H PRN PRN 12/23 1130 AC IV 01/22 1129 Oxycodone HCl 5 MG Q4H PRN PRN 12/23 1130 AC PO 12/28 1129 Oxycodone HCl 10 MG Q4H PRN PRN 12/23 1130 AC 0 12/24 PO 12/28 1129 0923 Paroxetine HCl 40 MG DAILY 12/23 09 AC 12/25 PO 01/22 0859 0838 Pantoprazole 40 MG DAILY@0600 12/23 06 AC PO 01/22 0559 0743 24 hour I O ending at 0700: 12/25 0700 12/24 1900 Intake Total 480 Output Total 700 Balance -220 Intake, Oral 480 Number 2 Incontinent Voids Number Voids 1 Output, Chest 140 Tube Drainage Output, Urine 560 Patient 136.6 kg 130.181 kg Weight Weight Bed scale Measurement Method Vital Signs: Date Time Temp Pulse Resp B/P B/P Pulse O2 O2 F low FiO2 Mean Ox Delivery Rate 12/25 916 BiPAP 12/25 08 36.8 84 12 155/78 103.9 90 BiPAP mas k 12/25 07 81 99 40 12/25 06 37.7 97 30 155/82 106.6 96 Simple mask 12/25 06 100 Non 15 rebreather mask 12/25 0040 37.0 84 20 126/70 88.7 88 Nasal cannula 12/24 2313 87 90 Nasal 4 cannula 12/24 2216 88 93 Nasal 5 cannula 12/24 2046 37.6 83 24 124/71 88.5 92 Nasal 5 cannula 12/24 2030 Nasal 5 cannula 12/24 162 37.1 83 20 124/73 89.7 86 PATIENT WEIGHT: Weight (lb): 301 Weight (oz): 2.42 Weight (kg): 136.600 Physical Exam General appearance: respiratory support Neck: full range of motion, non-tender, normal thyroid, supple/no meningismus, no bruit/NL carotids, no JVD, no lymphadenopathy , no masses or swelling Cardiovascular: CV assessment: regular rate and rhythm Respiratory: clear to auscultation, no distress Abdomen: non-tender, normal bowel sounds , no distention, no guarding, no mass/ organomegaly, no pulsatile mass, no rebound Upper extremity: UE assessment: normal capillary refill, no luis armando a Neuro/FELLER BUNCHER OPERATOR: disoriented Skin: dry, intact Results Radiology data: Recent Impressions: RADIOLOGY - XR CHEST 1 V 12/25 0704 Report Impression - Status: SIGNED Entered: 12/25/2020 08 IMPRESSION: 1. Removal of right jugular line. 2. Otherwise stable chest. SL: [id number] Impression By: [email or web address] - Charles Sandhu Diagnosis, Assessment Plan Free Text DxA P Notes Free Text DxA P Notes: 1. Severe LM and three vessel CAD: S/P CABG post-op per CTS pt is on bipap this morning, cxr reviewed- will give a dose of lasix today asa, plavix, statin monitor, continue supportive care 2. Obesity 3. HTN 4. Hyperlipedemia 5. NIDDM 6. Sleesp apnea Electronically Signed by Emily Zapata NP on 12/12 at 1426 at 0940 RPT #:[id number] END OF REPORT 2020-12-25 11:31:00-00:00 [facility]L [facility] ([facility]) Cardiothoracic Surgery Prog REPORT#:[id number] REPORT STATUS: Signed DATE:12/25/20 TIME: 1130 PATIENT: SONYA MINAYA UNIT #: [id number] ROOM/BED: [place] [address] : 53 AGE: 65 SEX: M ATTEND: Jae Jaffe MD ADM AUTHOR: Paresh Hernadez MD * ALL edits or amendments must be made on the el [employer]/computer document * Subjective HPI: Doing well Hemodynamically stable On supplemental oxygen Good pain control Objective General VS/I O Last Documented: Result Date Time O2 Delivery BiPAP 12/25 916 Pulse Ox 90 12/25 812 B/P 155/78 12/25 812 B/P Mean 103.9 12/25 812 Temp 36.8 12/25 812 Pulse 84 12/25 812 Resp 12 12/25 812 FiO2 40 12/25 718 O2 Flow Rate 15 12/25 616 24 hour I O ending at 0700: 12/25 0700 12/24 1900 Intake Total 480 Output Total 700 Balance -220 Intake, Oral 480 Number 2 Incontinent Voids Number Voids 1 Output, Chest 140 Tube Drainage Output, Urine 560 Patient 136.6 kg 130.181 kg Weight Weight Bed scale Measurement Method PATIENT WEIGHT: Weight (lb): 301 Weight (oz): 2.42 Weight (kg): 136.600 Physical Exam General appearance: alert, awake, oriented HEENT: anicteric, mucosal membranes moist Cardiovascular: BP/pulses equal bilat., normal h eart sounds, regular rate rhythm Respiratory: aerating well, clear to auscultatio n Abdomen: soft, non-tender, normal bowel sounds Genitourinary: no flank pain, no duran Extremities: dry, moves all 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, oriented X 3 Current Medications Medications: Active Meds + DC'd Last 24 Hrs Cyanocobalamin 500 MCG DAILY PO Ferrous Sulfate 325 MG DAILY PO Bisacodyl 10 MG ONCE PRN RECTAL Magnesium Hydroxide 30 ML ONCE PRN PO Furosemide 40 MG ONCE ONE IV (DC) Potassium Chloride 20 MEQ ONCE ONE PO (DC) Fluticasone Propionate 1 SPRAY DAILY NASAL (CKD) Guaifenesin 600 MG Q12HR PO Metoprolol Tartrate 12.5 MG NOW ONE PO (DC) Hydralazine HCl 10 MG Q6H PRN PRN IV Lorazepam 0.5 MG ONCE ONE IV (DC) Sodium Chloride 0 ASDIR PRN IV Levalbuterol HCl 0.63 MG RTQ4H PRN PRN INH Loratadine 10 MG DAILY PRN PRN PO Atorvastatin Calcium 40 MG 2100 PO Insulin Human Lispro 0 AC HS SUBQ Clopidogrel Bisulfate 75 MG DAILY PO Polyethylene Glycol 17 GM DAILY PO Sodium Chloride 10 ML ASDIR IV Docusate Sodium 100 MG BID PO Senna 2 TAB BEDTIME PO (CKD) Amiodarone HCl 200 MG TID PO Mupirocin 1 APPLIC BID NASAL Acetaminophen 650 MG Q4H PRN PRN PO Dextrose/Water 25 ML ASDIR PRN IV (CKD) Dextrose/Water 50 ML ASDIR PRN IV (CKD) Glucagon 1 MG ASDIR PRN IM Magnesium Sulfate 100 ML ASDIR PRN IV Magnesium Sulfate 50 ML ASDIR PRN IV Magnesium Sulfate/Dextrose 100 ML ASDIR PRN IV Ondansetron HCl 4 MG Q6H PRN PRN IV Oxycodone HCl 5 MG Q4H PRN PRN PO Oxycodone HCl 10 MG Q4H PRN PRN PO Paroxetine HCl 40 MG DAILY PO Pantoprazole 40 MG DAILY@0600 PO Results Findings/Data: Laboratory Tests 12/25 612 Blood Gas Puncture Site R Radial Vivek Test Positive VBG pH (7.33 - 7.45) 7.530 H VBG pCO2 (43 - 47 mmHg) 26.0 *L VBG pO2 (10 - 50 mmHG) 59.7 H VBG HCO3 (22 - 27 MMOL/L) 21.7 L POC VBG Total CO2 22.5 VBG O2 Saturation (60 - 80 %) 93.7 H VBG Base Excess (-4.0 - 4.0 MMOL/L) -1.0 VBG Temperature (F) 98.6 Respiration Rate (/MIN) 20 O2 Delivery Device [id number] FiO2 (%) 100 Laboratory Tests 12/25 12/25 12/24 12/24 12/24 0809 0340 2112 1627 1205 Chemistry Sodium (134 - 147 mEq/L) 137 Potassium (3.4 - 5.0 mEq/L) 3.8 Chloride (100 - 108 mEq/L) 105 Carbon Dioxide (21 - 33 mEq/l) 23 Anion Gap (0 - 20) 13 BUN (7 - 18 mg/dL) 11 Creatinine (0.6 - 1.3 mg/dL) 0.9 Glomerular Filtr Rate (80 - 90) 84.2 Glucose (70 - 110 mg/dL) 183 H POC Glucose (70 - 110 MG/DL) 176 H 185 H 225 H 220 H Calcium (8.0 - 10.5 mg/dL) 8.6 Magnesium (1.80 - 2.40 mg/dL) 2.17 Total Bilirubin (0.0 - 1.0 mg/dL) 0.80 Direct Bilirubin (0.0 - 0.30 MG/DL) 0.40 H Indirect Bilirubin (MG/DL) 0.40 AST (15 - 37 IUnit/L) 64 H ALT (30 - 65 IUnit/L) 18 L Total Alk Phosphatase (20 - 125 42 IUnit/L) Total Protein (6.4 - 8.2 g/dL) 6.0 L Albumin (3.4 - 5.0 g/dL) 3.50 Laboratory Tests / 0340 Hematology WBC (4.5 - 11.0 x10 3/uL) 10.8 RBC (4.00 - 5.60 x10 6/uL) 3.42 L Hgb (12.5 - 16.9 g/dL) 9.7 L Hct (37.5 - 50.7 %) 30.6 L MCV (81.0 - 99.0 fL) 89.5 MCH (27.0 - 33.0 pg) 28.4 MCHC (33.0 - 37.0 g/dL) 31.7 L RDW (11.5 - 14.5 %) 15.9 H Plt Count (150 - 400 x10 3/uL) 149 L MPV (7.0 - 9.0 fL) 11.2 H Neut % (Auto) (56.0 - 77.0 %) 79.3 H Lymph % (Auto) (14.0 - 32.0 %) 11.8 L [place] % (Auto) (4.8 - 9.0 %) 8.1 Eos % (Auto) (0.3 - 3.7 %) 0.0 L Baso % (Auto) (0.0 - 2.0 %) 0.3 Neut # (Auto) (2.0 - 7.6 x10 3/uL) 8.57 H Lymph # (Auto) (1.0 - 3.8 x10 3/uL) 1.27 [place] # (Auto) (0.1 - 0.8 x10 3/uL) 0.88 H Eos # (Auto) (0.0 - 0.2 x10 3/uL) 0.00 Baso # (Auto) (0.0 - 0.2 x10 3/uL) 0.03 Abs Immat Gran (auto) (0.00 - 0.03 x10 3/uL) 0. 05 H Add Manual Diff NO Immature Gran % (0.0 - 2.0 %) 0.5 Nucleated RBC % (0 - 0 %) 0.0 Nucleated RBCs # (Man) (0.0 - 0.1 x10 3/uL) 0.0 0 Diagnosis, Assessment Plan Hospital course to date: Ambulate Encourage incentive spirometry Encourage p.o. Wean oxygen as tolerated Discharge planning at 1133 RPT #:[id number] END OF REPORT 2020-12-25 08:00:00-00:00 [id number] [place] [address] PATIENT NAME: SONYA MINAYA ADMIT DATE: ACCOUNT NO: [id number] ROOM NO: [facility] [place] AGE: 65 REPORT TYPE: eELECTROCARDIOGRAM REPORT SEX: M ADMITTING PHYSICIAN:Jae Jaffe MD ATTENDING PHYSICIAN:Jae Jaffe MD Order: [id number] Test Reason : PREOP Test Date/Time Stamp: SunDec 25 2020 08:00:42 Blood Pressure : / mmHG Vent. Rate : 083 BPM Atrial Rate : 083 BPM P-R Int : 206 ms QRS Dur : 088 ms QT Int : 384 ms P-R-T Axes : 080 -10 020 degree s QTc Int : 451 ms Normal sinus rhythm Low voltage QRS Cannot rule out Inferior infarct , age undetermi malik Abnormal ECG When compared with ECG of 24-DEC-2020 04:10, Minimal criteria for Anterior infarct are now pr esent No significant change was found Confirmed by MD CORONEL GERARD ([id number]) on 9:07:05 PM Referred By: Zara Kumari Confirmed by:SHANTELL CORONEL MD Electronically Signed by Ian Coronel MD on 04/13 at 4469 PATIENT NAME: SONYA MINAYA 0927 2020-12-24 23:56:00-00:00 [facility] Internal Medicine Prog. Note REPORT#:[id number] REPORT STATUS: Signed DATE:12/24/20 TIME: 2355 PATIENT: SONYA MINAYA UNIT #: [id number] ROOM/BED: [place] [address] : 53 AGE: 65 SEX: M ATTEND: Jae Jaffe MD ADM AUTHOR: Junie Yu NP * ALL edits or amendments must be made on the [employer] document * Subjective Chief Complaint: Multivessel coronary artery disease Status post CABG x4 Review of Systems Constitutional: Denies: chills, fever. ENT: Reports: sore throat. Denies: earache, nasal con gestion. Respiratory: Reports: FREEMAN (dyspnea on exe rtion). Denies: hemoptysis, parox nocturnal dyspnea , pleurisy, pleuritic pain, pneumonia, SOB, whee zing. Cardiovascular: Reports: chest pain. Denies: palpitations. GI: Denies: abdominal pain, nausea, vomiting. : Reports: other. Musculoskeletal: Reports: extremity pain, extremity swelling. Den ies: joint pain, lumbar pain, neck pain. Neuro: Denies: focal weakness, headache, slurred speech . Psych: Denies: agitation, anxiety, auditory hallucinati on, change in mental status, confusion, delusional, depre ssion, homicidal ideation, hostile, insomnia, stress , suicidal ideation, visual hallucination. Objective General VS/I O: Vital Signs Date Temp Pulse Resp B/P B/P Mean Pulse Ox FiO2 12/24 37.1-38.3 75-101 19-43 97-134/51-73 69-89 .7 80-100 Last Documented: Result Date Time Pulse Ox 90 12/24 2312 O2 Delivery Nasal cannula 12/24 2312 O2 Flow Rate 4 12/24 2312 Pulse 87 12/24 2312 B/P 124/71 12/24 2046 B/P Mean 88.5 12/24 2046 Temp 37.6 12/24 2046 Resp 24 12/24 2046 FiO2 40 12/23 1440 24 hour I O ending at 0700: 04 0700 04 1900 Intake Total 3552.00 1727.00 Output Total 1121 604 Balance 2431.00 1123.00 Intake, IV 2052.00 1337.00 Intake, Oral 1500 390 Output, Chest 266 164 Tube Drainage Output, Urine 855 440 PATIENT WEIGHT: Weight (lb): 287 Weight (oz): 14.78 Weight (kg): 130.181 Medications: Active Meds + DC'd Last 24 Hrs Cyanocobalamin 500 MCG DAILY PO Ferrous Sulfate 325 MG DAILY PO Bisacodyl 10 MG ONCE PRN RECTAL Magnesium Hydroxide 30 ML ONCE PRN PO Atorvastatin Calcium 40 MG 2100 PO Insulin Human Lispro 0 AC HS SUBQ Clopidogrel Bisulfate 75 MG DAILY PO Polyethylene Glycol 17 GM DAILY PO Sodium Chloride 10 ML ASDIR IV Docusate Sodium 100 MG BID PO Metoprolol Tartrate 12.5 MG Q12HR PO (DC) Senna 2 TAB BEDTIME PO (CKD) Amiodarone HCl 200 MG TID PO Cefazolin Sodium 3 GM ONCE ONE IV (DC) Sodium Chloride 250 ML Mupirocin 1 APPLIC BID NASAL Acetaminophen 650 MG Q4H PRN PRN PO Acetaminophen 650 MG Q4H PRN PRN RECTAL (DC) Albumin Human 25 GM ASDIR PRN IV (DC) Calcium Chloride 1 GM ASDIR PRN IV (DC) Dextrose/Water 25 ML ASDIR PRN IV (CKD) Dextrose/Water 50 ML ASDIR PRN IV (CKD) Epinephrine 5 MG ASDIR IV (DC) Dextrose/Water 245 ML Glucagon 1 MG ASDIR PRN IM Insulin Human Regular 100 UNIT ASDIR IV (DC) Sodium Chloride 99 ML Magnesium Sulfate 100 ML ASDIR PRN IV Magnesium Sulfate 50 ML ASDIR PRN IV Magnesium Sulfate/Dextrose 100 ML ASDIR PRN IV Morphine Sulfate 4 MG Q2H PRN PRN IV (DC) Nitroglycerin/Dextrose 250 ML ASDIR IV (DC) Norepinephrine Bitartrate 250 ML TITRATE IV (DC) Ondansetron HCl 4 MG Q6H PRN PRN IV Oxycodone HCl 5 MG Q4H PRN PRN PO Oxycodone HCl 10 MG Q4H PRN PRN PO Potassium Chloride 100 ML ASDIR PRN IV (DC) Sodium Bicarbonate 50 MEQ ASDIR PRN IV (DC) Sodium Chloride 1,000 ML .Q20H IV (DC) Sodium Chloride 250 ML Q24H IV (DC) Paroxetine HCl 40 MG DAILY PO Pantoprazole 40 MG DAILY@0600 PO Physical Exam General appearance: alert, awake, oriented Neck: no JVD Cardiovascular: regular rate rhythm Respiratory: chest tube, decreased breath sounds , on oxygen Abdomen: normal bowel sounds, soft Genitourinary: no CVA tenderness Extremities: Extremities: decreased range of motion, edema 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, 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 Skin: surgical site dsg cdi Psychiatry: normal judgement/insight Results Findings/Data: Laboratory Tests 12/24/20 0300: [Embedded Image Not Available] Laboratory Tests 12/24 030 Blood Gas Puncture Site R Radial O2 Saturation (90 - 100 %) 87.9 L ABG pH (7.35 - 7.45) 7.416 ABG pCO2 (35.0 - 45 mmHg) 39.8 ABG pO2 (80 - 100.0 mmHg) 56.6 L ABG HCO3 (22.0 - 26.0 MMOL/L) 25.3 ABG Total CO2 26.5 ABG Base Excess (-4.0 - 4.0 MMOL/L) 1.0 ABG Hematocrit (37.5 - 50.7 %) 28 L ABG Hemoglobin (12.5 - 16.9 G/DL) 9.4 L Vivek Test Positive Sodium (134 - 147 MEQ/L) 140 Potassium (3.4 - 5.0 MEQ/L) 4.0 Chloride (100 - 108 MEQ/L) 103 Ionized Calcium (1.12 - 1.32 MMOL/L) 1.13 Lactic Acid (0.9 - 1.7 mmol/l) 1.3 Temperature (F) 100.4 O2 Delivery Device Cannula Laboratory Tests 12/24 12/24 12/24 12/24 12/24 2112 1627 1205 0548 0358 Chemistry POC Glucose (70 - 110 MG/DL) 185 H 225 H 220 H 164 H 144 H 12/24 12/24 12/24 12/24 0308 0300 0300 0155 Chemistry Sodium (134 - 147 mEq/L) 140 Potassium (3.4 - 5.0 mEq/L) 4.0 Chloride (100 - 108 mEq/L) 107 Carbon Dioxide (21 - 33 mEq/l) 26 Anion Gap (0 - 20) 11 BUN (7 - 18 mg/dL) 18 Creatinine (0.6 - 1.3 mg/dL) 1.2 POC Creatinine (0.8 - 1.3 mg/dL) 1.2 Glomerular Filtr Rate (80 - 90) 60.4 L Glucose (70 - 110 mg/dL) 161 H POC Glucose (70 - 110 MG/DL) 151 H POC Glucose (mg/dL) (70 - 110 MG/DL) 160 H Lactic Acid (0.4 - 1.9 mmol/L) 1.4 Calcium (8.0 - 10.5 mg/dL) 8.6 Magnesium (1.80 - 2.40 mg/dL) 2.14 Total Bilirubin (0.0 - 1.0 mg/dL) 0.40 Direct Bilirubin (0.0 - 0.30 MG/DL) 0.20 Indirect Bilirubin (MG/DL) 0.20 AST (15 - 37 IUnit/L) 69 H ALT (30 - 65 IUnit/L) 17 L Total Alk Phosphatase (20 - 125 IUnit/L) 34 Total Protein (6.4 - 8.2 g/dL) 5.5 L Albumin (3.4 - 5.0 g/dL) 3.50 Laboratory Tests / 0300 Hematology WBC (4.5 - 11.0 x10 3/uL) 8.6 RBC (4.00 - 5.60 x10 6/uL) 3.42 L Hgb (12.5 - 16.9 g/dL) 9.6 L Hct (37.5 - 50.7 %) 30.8 L MCV (81.0 - 99.0 fL) 90.1 MCH (27.0 - 33.0 pg) 28.1 MCHC (33.0 - 37.0 g/dL) 31.2 L RDW (11.5 - 14.5 %) 15.9 H Plt Count (150 - 400 x10 3/uL) 154 MPV (7.0 - 9.0 fL) 11.0 H Neut % (Auto) (56.0 - 77.0 %) 80.8 H Lymph % (Auto) (14.0 - 32.0 %) 10.3 L [place] % (Auto) (4.8 - 9.0 %) 8.2 Eos % (Auto) (0.3 - 3.7 %) 0.0 L Baso % (Auto) (0.0 - 2.0 %) 0.2 Neut # (Auto) (2.0 - 7.6 x10 3/uL) 6.94 Lymph # (Auto) (1.0 - 3.8 x10 3/uL) 0.88 L [place] # (Auto) (0.1 - 0.8 x10 3/uL) 0.70 Eos # (Auto) (0.0 - 0.2 x10 3/uL) 0.00 Baso # (Auto) (0.0 - 0.2 x10 3/uL) 0.02 Abs Immat Gran (auto) (0.00 - 0.03 x10 3/uL) 0. 04 H Add Manual Diff NO Immature Gran % (0.0 - 2.0 %) 0.5 Nucleated RBC % (0 - 0 %) 0.0 Nucleated RBCs # (Man) (0.0 - 0.1 x10 3/uL) 0.0 0 Radiology data: Recent Impressions: RADIOLOGY - XR CHEST 1 V 12/24 0549 Report Impression - Status: SIGNED Entered: 12/24/2020 0812 IMPRESSION: 1. Extubation and nasogastric tube removal with slightly improved pulmonary aeration. 2. Persistent bilateral perihilar and bibasilar pulmonary opacities, probably representing atelectasis and or secreti ons. 3. Probable low-volume pleural fluid. SL: ER-H Impression By: [email or web address] - Donato tian M.D. Diagnosis, Assessment Plan Free Text DxA P Notes Free text DxA P notes: Assessment: 65-year-old male with past medical history as de scribed above presented for elective left heart catheterization. Patient und erwent the procedure well but needing coronary artery bypass graft due to mult iple vessel disease. 1. Status post left heart cath revealing multive ssel coronary artery disease 2. Chest pain/dyspnea on exertion 3. Hypertension 4. Diabetes mellitus type 2 5. Dyslipidemia statin 6. Morbid obesity 12/23/2020: Status post CABG x4 Patient postop Is awake complaining of pain Chest tubes x2 Duran catheter to bedside drainage No pressors December 24, 2020 Patient out of bed Transferred to CVN 1 Plan of care: Keep patient on telemetry Continue to monitor closely Glycemic control -SS DVT prophylaxis Lovenox Continue with current medications Repeat labs Pain control Continue with PT/OT Plan of care discussed with the patient, patient 's nurse, and Dr. Underwood. Electronically Signed by Junie Yu NP on 0 12/26/20 at 0419 RPT #:[id number] END OF REPORT 2020-12-24 23:56:00-00:00 [facility] Internal Medicine Prog. Note REPORT#:[id number] REPORT STATUS: Signed DATE:12/24/20 TIME: 2355 PATIENT: SONYA MINAYA UNIT #: [id number] ROOM/BED: [place] [address] : 53 AGE: 65 SEX: M ATTEND: Jae Jaffe MD ADM AUTHOR: Junie Yu NP * ALL edits or amendments must be made on the [employer]/computer document * Junie Yu 12/24/20 2356: Subjective Chief Complaint: Multivessel coronary artery disease Status post CABG x4 Review of Systems Constitutional: Denies: chills, fever. ENT: Reports: sore throat. Denies: earache, nasal con gestion. Respiratory: Reports: FREEMAN (dyspnea on exe rtion). Denies: hemoptysis, parox nocturnal dyspnea , pleurisy, pleuritic pain, pneumonia, SOB, whee zing. Cardiovascular: Reports: chest pain. Denies: palpitations. GI: Denies: abdominal pain, nausea, vomiting. : Reports: other. Musculoskeletal: Reports: extremity pain, extremity swelling. Den ies: joint pain, lumbar pain, neck pain. Neuro: Denies: focal weakness, headache, slurred speech . Psych: Denies: agitation, anxiety, auditory hallucinati on, change in mental status, confusion, delusional, depre ssion, homicidal ideation, hostile, insomnia, stress , suicidal ideation, visual hallucination. Objective General VS/I O: Vital Signs Date Temp Pulse Resp B/P B/P Mean Pulse Ox FiO2 12/24 37.1-38.3 75-101 19-43 97-134/51-73 69-89 .7 80-100 Last Documented: Result Date Time Pulse Ox 90 12/24 2312 O2 Delivery Nasal cannula 12/24 2312 O2 Flow Rate 4 12/24 2312 Pulse 87 12/24 2312 B/P 124/71 12/24 2046 B/P Mean 88.5 12/24 2046 Temp 37.6 12/24 2046 Resp 24 12/24 2046 FiO2 40 12/23 1440 24 hour I O ending at 0700: 12/24 0700 12/23 1900 Intake Total 3552.00 1727.00 Output Total 1121 604 Balance 2431.00 1123.00 Intake, IV 2052.00 1337.00 Intake, Oral 1500 390 Output, Chest 266 164 Tube Drainage Output, Urine 855 440 PATIENT WEIGHT: Weight (lb): 287 Weight (oz): 14.78 Weight (kg): 130.181 Medications: Active Meds + DC'd Last 24 Hrs Cyanocobalamin 500 MCG DAILY PO Ferrous Sulfate 325 MG DAILY PO Bisacodyl 10 MG ONCE PRN RECTAL Magnesium Hydroxide 30 ML ONCE PRN PO Atorvastatin Calcium 40 MG 2100 PO Insulin Human Lispro 0 AC HS SUBQ Clopidogrel Bisulfate 75 MG DAILY PO Polyethylene Glycol 17 GM DAILY PO Sodium Chloride 10 ML ASDIR IV Docusate Sodium 100 MG BID PO Metoprolol Tartrate 12.5 MG Q12HR PO (DC) Senna 2 TAB BEDTIME PO (CKD) Amiodarone HCl 200 MG TID PO Cefazolin Sodium 3 GM ONCE ONE IV (DC) Sodium Chloride 250 ML Mupirocin 1 APPLIC BID NASAL Acetaminophen 650 MG Q4H PRN PRN PO Acetaminophen 650 MG Q4H PRN PRN RECTAL (DC) Albumin Human 25 GM ASDIR PRN IV (DC) Calcium Chloride 1 GM ASDIR PRN IV (DC) Dextrose/Water 25 ML ASDIR PRN IV (CKD) Dextrose/Water 50 ML ASDIR PRN IV (CKD) Epinephrine 5 MG ASDIR IV (DC) Dextrose/Water 245 ML Glucagon 1 MG ASDIR PRN IM Insulin Human Regular 100 UNIT ASDIR IV (DC) Sodium Chloride 99 ML Magnesium Sulfate 100 ML ASDIR PRN IV Magnesium Sulfate 50 ML ASDIR PRN IV Magnesium Sulfate/Dextrose 100 ML ASDIR PRN IV Morphine Sulfate 4 MG Q2H PRN PRN IV (DC) Nitroglycerin/Dextrose 250 ML ASDIR IV (DC) Norepinephrine Bitartrate 250 ML TITRATE IV (DC) Ondansetron HCl 4 MG Q6H PRN PRN IV Oxycodone HCl 5 MG Q4H PRN PRN PO Oxycodone HCl 10 MG Q4H PRN PRN PO Potassium Chloride 100 ML ASDIR PRN IV (DC) Sodium Bicarbonate 50 MEQ ASDIR PRN IV (DC) Sodium Chloride 1,000 ML .Q20H IV (DC) Sodium Chloride 250 ML Q24H IV (DC) Paroxetine HCl 40 MG DAILY PO Pantoprazole 40 MG DAILY@0600 PO Physical Exam General appearance: alert, awake, oriented Neck: no JVD Cardiovascular: regular rate rhythm Respiratory: chest tube, decreased breath sounds , on oxygen Abdomen: normal bowel sounds, soft Genitourinary: no CVA tenderness Extremities: Extremities: decreased range of motion, edema 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, 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 Skin: surgical site dsg cdi Psychiatry: normal judgement/insight Results Findings/Data: Laboratory Tests 12/24/20 0300: [Embedded Image Not Available] Laboratory Tests 12/24 0308 Blood Gas Puncture Site R Radial O2 Saturation (90 - 100 %) 87.9 L ABG pH (7.35 - 7.45) 7.416 ABG pCO2 (35.0 - 45 mmHg) 39.8 ABG pO2 (80 - 100.0 mmHg) 56.6 L ABG HCO3 (22.0 - 26.0 MMOL/L) 25.3 ABG Total CO2 26.5 ABG Base Excess (-4.0 - 4.0 MMOL/L) 1.0 ABG Hematocrit (37.5 - 50.7 %) 28 L ABG Hemoglobin (12.5 - 16.9 G/DL) 9.4 L Vivek Test Positive Sodium (134 - 147 MEQ/L) 140 Potassium (3.4 - 5.0 MEQ/L) 4.0 Chloride (100 - 108 MEQ/L) 103 Ionized Calcium (1.12 - 1.32 MMOL/L) 1.13 Lactic Acid (0.9 - 1.7 mmol/l) 1.3 Temperature (F) 100.4 O2 Delivery Device Cannula Laboratory Tests 12/24 12/24 12/24 12/24 12/24 2112 1627 1205 0548 0358 Chemistry POC Glucose (70 - 110 MG/DL) 185 H 225 H 220 H 164 H 144 H 12/248 0300 0300 0155 Chemistry Sodium (134 - 147 mEq/L) 140 Potassium (3.4 - 5.0 mEq/L) 4.0 Chloride (100 - 108 mEq/L) 107 Carbon Dioxide (21 - 33 mEq/l) 26 Anion Gap (0 - 20) 11 BUN (7 - 18 mg/dL) 18 Creatinine (0.6 - 1.3 mg/dL) 1.2 POC Creatinine (0.8 - 1.3 mg/dL) 1.2 Glomerular Filtr Rate (80 - 90) 60.4 L Glucose (70 - 110 mg/dL) 161 H POC Glucose (70 - 110 MG/DL) 151 H POC Glucose (mg/dL) (70 - 110 MG/DL) 160 H Lactic Acid (0.4 - 1.9 mmol/L) 1.4 Calcium (8.0 - 10.5 mg/dL) 8.6 Magnesium (1.80 - 2.40 mg/dL) 2.14 Total Bilirubin (0.0 - 1.0 mg/dL) 0.40 Direct Bilirubin (0.0 - 0.30 MG/DL) 0.20 Indirect Bilirubin (MG/DL) 0.20 AST (15 - 37 IUnit/L) 69 H ALT (30 - 65 IUnit/L) 17 L Total Alk Phosphatase (20 - 125 IUnit/L) 34 Total Protein (6.4 - 8.2 g/dL) 5.5 L Albumin (3.4 - 5.0 g/dL) 3.50 Laboratory Tests 12/24 299 Hematology WBC (4.5 - 11.0 x10 3/uL) 8.6 RBC (4.00 - 5.60 x10 6/uL) 3.42 L Hgb (12.5 - 16.9 g/dL) 9.6 L Hct (37.5 - 50.7 %) 30.8 L MCV (81.0 - 99.0 fL) 90.1 MCH (27.0 - 33.0 pg) 28.1 MCHC (33.0 - 37.0 g/dL) 31.2 L RDW (11.5 - 14.5 %) 15.9 H Plt Count (150 - 400 x10 3/uL) 154 MPV (7.0 - 9.0 fL) 11.0 H Neut % (Auto) (56.0 - 77.0 %) 80.8 H Lymph % (Auto) (14.0 - 32.0 %) 10.3 L [place] % (Auto) (4.8 - 9.0 %) 8.2 Eos % (Auto) (0.3 - 3.7 %) 0.0 L Baso % (Auto) (0.0 - 2.0 %) 0.2 Neut # (Auto) (2.0 - 7.6 x10 3/uL) 6.94 Lymph # (Auto) (1.0 - 3.8 x10 3/uL) 0.88 L [place] # (Auto) (0.1 - 0.8 x10 3/uL) 0.70 Eos # (Auto) (0.0 - 0.2 x10 3/uL) 0.00 Baso # (Auto) (0.0 - 0.2 x10 3/uL) 0.02 Abs Immat Gran (auto) (0.00 - 0.03 x10 3/uL) 0. 04 H Add Manual Diff NO Immature Gran % (0.0 - 2.0 %) 0.5 Nucleated RBC % (0 - 0 %) 0.0 Nucleated RBCs # (Man) (0.0 - 0.1 x10 3/uL) 0.0 0 Radiology data: Recent Impressions: RADIOLOGY - XR CHEST 1 V 12/24 0549 Report Impression - Status: SIGNED Entered: 12/24/2020 0812 IMPRESSION: 1. Extubation and nasogastric tube removal with slightly improved pulmonary aeration. 2. Persistent bilateral perihilar and bibasilar pulmonary opacities, probably representing atelectasis and or secreti ons. 3. Probable low-volume pleural fluid. SL: ER-H Impression By: [email or web address] - Donato tian M.D. Diagnosis, Assessment Plan Free Text DxA P Notes Free text DxA P notes: Assessment: 65-year-old male with past medical history as de scribed above presented for elective left heart catheterization. Patient und erwent the procedure well but needing coronary artery bypass graft due to mult iple vessel disease. 1. Status post left heart cath revealing multive ssel coronary artery disease 2. Chest pain/dyspnea on exertion 3. Hypertension 4. Diabetes mellitus type 2 5. Dyslipidemia statin 6. Morbid obesity 12/23/2020: Status post CABG x4 Patient postop Is awake complaining of pain Chest tubes x2 Duran catheter to bedside drainage No pressors December 24, 2020 Patient out of bed Transferred to CVN 1 Plan of care: Keep patient on telemetry Continue to monitor closely Glycemic control -SS DVT prophylaxis Lovenox Continue with current medications Repeat labs Pain control Continue with PT/OT Plan of care discussed with the patient, patient 's nurse, and Dr. Underwood. Jae Underwood 12/28/20 0746: Attestations Physician Attestation Agree w/findings plan: I agree with the findings and plan as documented by DOROTEO Yu. Plan of care coordinated with DOROTEO Yu. Pertinent labs, Imaging, and behavioral consultant evaluations reviewed. 65-year-old male presented for elective left heart catheterization. He is able to get out of bed. He was transferred to CVN 1. We will continue with telemetry, glycemic control with sliding scale, DVT prophylaxis with Lovenox, current medications, repeat labs, pain c ontrol, and PT/OT. We will continue to monitor him closely. Electronically Signed by Junie Yu NP on 0 12/26/20 at 0419 RPT #:[id number] END OF REPORT 2020-12-24 23:56:00-00:00 [facility] REPORT#:[id number] REPORT STATUS: Signed DATE:12/24/20 TIME: 2355 PATIENT: SONYA MINAYA UNIT #: [id number] ROOM/BED: [address] : 53 AGE: 65 SEX: M ATTEND: Jae Jaffe MD ADM AUTHOR: Junie Yu MEDICINE ASSISTANT * ALL edits or amendments must be made on the [employer]/computer document * Junie Yu 12/24/20 2356: Subjective Chief Complaint: Multivessel coronary artery disease Status post CABG x4 Review of Systems Constitutional: Denies: chills, fever. ENT: Reports: sore throat. Denies: earache, nasal con gestion. Respiratory: Reports: FREEMAN (dyspnea on exe rtion). Denies: hemoptysis, parox nocturnal dyspnea , pleurisy, pleuritic pain, pneumonia, SOB, whee zing. Cardiovascular: Reports: chest pain. Denies: palpitations. GI: Denies: abdominal pain, nausea, vomiting. : Reports: other. Musculoskeletal: Reports: extremity pain, extremity swelling. Den ies: joint pain, lumbar pain, neck pain. Neuro: Denies: focal weakness, headache, slurred speech . Psych: Denies: agitation, anxiety, auditory hallucinati on, change in mental status, confusion, delusional, depre ssion, homicidal ideation, hostile, insomnia, stress , suicidal ideation, visual hallucination. Objective General VS/I O: Vital Signs Date Temp Pulse Resp B/P B/P Mean Pulse Ox FiO2 12/24 37.1-38.3 75-101 19-43 97-134/51-73 69-89 .7 80-100 Last Documented: Result Date Time Pulse Ox 90 12/24 2312 O2 Delivery Nasal cannula 12/24 2312 O2 Flow Rate 4 12/24 2312 Pulse 87 12/24 2313 B/P 124/71 12/24 2046 B/P Mean 88.5 12/24 2046 Temp 37.6 12/24 2046 Resp 24 12/24 2046 FiO2 40 12/23 1440 24 hour I O ending at 0700: 12/24 0700 12/23 1900 Intake Total 3552.00 1727.00 Output Total 1121 604 Balance 2431.00 1123.00 Intake, IV 2052.00 1337.00 Intake, Oral 1500 390 Output, Chest 266 164 Tube Drainage Output, Urine 855 440 PATIENT WEIGHT: Weight (lb): 287 Weight (oz): 14.78 Weight (kg): 130.181 Medications: Active Meds + DC'd Last 24 Hrs Cyanocobalamin 500 MCG DAILY PO Ferrous Sulfate 325 MG DAILY PO Bisacodyl 10 MG ONCE PRN RECTAL Magnesium Hydroxide 30 ML ONCE PRN PO Atorvastatin Calcium 40 MG 2100 PO Insulin Human Lispro 0 AC HS SUBQ Clopidogrel Bisulfate 75 MG DAILY PO Polyethylene Glycol 17 GM DAILY PO Sodium Chloride 10 ML ASDIR IV Docusate Sodium 100 MG BID PO Metoprolol Tartrate 12.5 MG Q12HR PO (DC) Senna 2 TAB BEDTIME PO (CKD) Amiodarone HCl 200 MG TID PO Cefazolin Sodium 3 GM ONCE ONE IV (DC) Sodium Chloride 250 ML Mupirocin 1 APPLIC BID NASAL Acetaminophen 650 MG Q4H PRN PRN PO Acetaminophen 650 MG Q4H PRN PRN RECTAL (DC) Albumin Human 25 GM ASDIR PRN IV (DC) Calcium Chloride 1 GM ASDIR PRN IV (DC) Dextrose/Water 25 ML ASDIR PRN IV (CKD) Dextrose/Water 50 ML ASDIR PRN IV (CKD) Epinephrine 5 MG ASDIR IV (DC) Dextrose/Water 245 ML Glucagon 1 MG ASDIR PRN IM Insulin Human Regular 100 UNIT ASDIR IV (DC) Sodium Chloride 99 ML Magnesium Sulfate 100 ML ASDIR PRN IV Magnesium Sulfate 50 ML ASDIR PRN IV Magnesium Sulfate/Dextrose 100 ML ASDIR PRN IV Morphine Sulfate 4 MG Q2H PRN PRN IV (DC) Nitroglycerin/Dextrose 250 ML ASDIR IV (DC) Norepinephrine Bitartrate 250 ML TITRATE IV (DC) Ondansetron HCl 4 MG Q6H PRN PRN IV Oxycodone HCl 5 MG Q4H PRN PRN PO Oxycodone HCl 10 MG Q4H PRN PRN PO Potassium Chloride 100 ML ASDIR PRN IV (DC) Sodium Bicarbonate 50 MEQ ASDIR PRN IV (DC) Sodium Chloride 1,000 ML .Q20H IV (DC) Sodium Chloride 250 ML Q24H IV (DC) Paroxetine HCl 40 MG DAILY PO Pantoprazole 40 MG DAILY@0600 PO Physical Exam General appearance: alert, awake, oriented Neck: no JVD Cardiovascular: regular rate rhythm Respiratory: chest tube, decreased breath sounds , on oxygen Abdomen: normal bowel sounds, soft Genitourinary: no CVA tenderness Extremities: Extremities: decreased range of motion, edema 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, 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 Skin: surgical site dsg cdi Psychiatry: normal judgement/insight Results Findings/Data: Laboratory Tests 12/24/20 0300: [Embedded Image Not Available] Laboratory Tests 12/25 307 Blood Gas Puncture Site R Radial O2 Saturation (90 - 100 %) 87.9 L ABG pH (7.35 - 7.45) 7.416 ABG pCO2 (35.0 - 45 mmHg) 39.8 ABG pO2 (80 - 100.0 mmHg) 56.6 L ABG HCO3 (22.0 - 26.0 MMOL/L) 25.3 ABG Total CO2 26.5 ABG Base Excess (-4.0 - 4.0 MMOL/L) 1.0 ABG Hematocrit (37.5 - 50.7 %) 28 L ABG Hemoglobin (12.5 - 16.9 G/DL) 9.4 L Vivek Test Positive Sodium (134 - 147 MEQ/L) 140 Potassium (3.4 - 5.0 MEQ/L) 4.0 Chloride (100 - 108 MEQ/L) 103 Ionized Calcium (1.12 - 1.32 MMOL/L) 1.13 Lactic Acid (0.9 - 1.7 mmol/l) 1.3 Temperature (F) 100.4 O2 Delivery Device Cannula Laboratory Tests 12/24 12/24 12/24 12/24 12/24 2112 1627 1205 0548 0358 Chemistry POC Glucose (70 - 110 MG/DL) 185 H 225 H 220 H 164 H 144 H 12/24 12/24 12/24 12/24 0308 0300 0300 0155 Chemistry Sodium (134 - 147 mEq/L) 140 Potassium (3.4 - 5.0 mEq/L) 4.0 Chloride (100 - 108 mEq/L) 107 Carbon Dioxide (21 - 33 mEq/l) 26 Anion Gap (0 - 20) 11 BUN (7 - 18 mg/dL) 18 Creatinine (0.6 - 1.3 mg/dL) 1.2 POC Creatinine (0.8 - 1.3 mg/dL) 1.2 Glomerular Filtr Rate (80 - 90) 60.4 L Glucose (70 - 110 mg/dL) 161 H POC Glucose (70 - 110 MG/DL) 151 H POC Glucose (mg/dL) (70 - 110 MG/DL) 160 H Lactic Acid (0.4 - 1.9 mmol/L) 1.4 Calcium (8.0 - 10.5 mg/dL) 8.6 Magnesium (1.80 - 2.40 mg/dL) 2.14 Total Bilirubin (0.0 - 1.0 mg/dL) 0.40 Direct Bilirubin (0.0 - 0.30 MG/DL) 0.20 Indirect Bilirubin (MG/DL) 0.20 AST (15 - 37 IUnit/L) 69 H ALT (30 - 65 IUnit/L) 17 L Total Alk Phosphatase (20 - 125 IUnit/L) 34 Total Protein (6.4 - 8.2 g/dL) 5.5 L Albumin (3.4 - 5.0 g/dL) 3.50 Laboratory Tests 12/24 0300 Hematology WBC (4.5 - 11.0 x10 3/uL) 8.6 RBC (4.00 - 5.60 x10 6/uL) 3.42 L Hgb (12.5 - 16.9 g/dL) 9.6 L Hct (37.5 - 50.7 %) 30.8 L MCV (81.0 - 99.0 fL) 90.1 MCH (27.0 - 33.0 pg) 28.1 MCHC (33.0 - 37.0 g/dL) 31.2 L RDW (11.5 - 14.5 %) 15.9 H Plt Count (150 - 400 x10 3/uL) 154 MPV (7.0 - 9.0 fL) 11.0 H Neut % (Auto) (56.0 - 77.0 %) 80.8 H Lymph % (Auto) (14.0 - 32.0 %) 10.3 L [place] % (Auto) (4.8 - 9.0 %) 8.2 Eos % (Auto) (0.3 - 3.7 %) 0.0 L Baso % (Auto) (0.0 - 2.0 %) 0.2 Neut # (Auto) (2.0 - 7.6 x10 3/uL) 6.94 Lymph # (Auto) (1.0 - 3.8 x10 3/uL) 0.88 L [place] # (Auto) (0.1 - 0.8 x10 3/uL) 0.70 Eos # (Auto) (0.0 - 0.2 x10 3/uL) 0.00 Baso # (Auto) (0.0 - 0.2 x10 3/uL) 0.02 Abs Immat Gran (auto) (0.00 - 0.03 x10 3/uL) 0. 04 H Add Manual Diff NO Immature Gran % (0.0 - 2.0 %) 0.5 Nucleated RBC % (0 - 0 %) 0.0 Nucleated RBCs # (Man) (0.0 - 0.1 x10 3/uL) 0.0 0 Radiology data: Recent Impressions: RADIOLOGY - XR CHEST 1 V 12/24 0549 Report Impression - Status: SIGNED Entered: 12/24/2020 0812 IMPRESSION: 1. Extubation and nasogastric tube removal with slightly improved pulmonary aeration. 2. Persistent bilateral perihilar and bibasilar pulmonary opacities, probably representing atelectasis and or secreti ons. 3. Probable low-volume pleural fluid. SL: ER-H Impression By: [email or web address] - Donato tian M.D. Diagnosis, Assessment Plan Free Text DxA P Notes Free text DxA P notes: Assessment: 65-year-old male with past medical history as de scribed above presented for elective left heart catheterization. Patient und erwent the procedure well but needing coronary artery bypass graft due to mult iple vessel disease. 1. Status post left heart cath revealing multive ssel coronary artery disease 2. Chest pain/dyspnea on exertion 3. Hypertension 4. Diabetes mellitus type 2 5. Dyslipidemia statin 6. Morbid obesity 12/23/2020: Status post CABG x4 Patient postop Is awake complaining of pain Chest tubes x2 Duran catheter to bedside drainage No pressors December 24, 2020 Patient out of bed Transferred to [facility] Plan of care: Keep patient on telemetry Continue to monitor closely Glycemic control -SS DVT prophylaxis Lovenox Continue with current medications Repeat labs Pain control Continue with PT/OT Plan of care discussed with the patient, patient 's nurse, and Dr. Underwood. Jae Underwood 12/28/20 0746: Attestations Physician Attestation Agree w/findings plan: I agree with the findings and plan as documented by DOROTEO Yu. Plan of care coordinated with DOROTEO Yu. Pertinent labs, Imaging, and behavioral consultant evaluations reviewed. 65-year-old male presented for elective left heart catheterization. He is able to get out of bed. He was transferred to [facility] 1. We will continue with telemetry, glycemic control with sliding scale, DVT prophylaxis with Lovenox, current medications, repeat labs, pain c ontrol, and PT/OT. We will continue to monitor him closely. Electronically Signed by Junie Yu NP on 0 12/26/20 at 0419 Electronically Signed by Jae Jaffe MD o n 12/28/20 at 0823 RPT #:[id number] END OF REPORT 2020-12-24 18:53:00-00:00 [facility] Cardiothoracic Surgery Prog REPORT#:[id number] REPORT STATUS: Signed DATE:12/24/20 TIME: 1852 PATIENT: SONYA MINAYA UNIT #: [id number] ROOM/BED: [place] [address] : 53 AGE: 65 SEX: M ATTEND: Jae Jaffe MD ADM AUTHOR: Kevin Hinkle NP * ALL edits or amendments must be made on the [employer]/computer document * General Status post: 1. Coronary artery bypass graft surgery x4 (GAMING to LAD, saphenous vein to diagonal, saphenous vein to marginal, saphenous vein to PDA). 2. Pulmonary vein isolation. 3. Isolation of left atrial appendage. 4. Endoscopic vein harvesting (right greater sap henous vein). Subjective Chief Complaint: follow up CABG Pain around chest tube site Review of Systems Constitutional: Denies: chills, fatigue, fever. Skin: Denies: rash, swelling. Eyes: Denies: redness, discharge. Respiratory: Denies: SOB, wheezing. Cardiovascular: Denies: chest pain. GI: Denies: nausea, vomiting. Musculoskeletal: Denies: joint pain, joint swelling. Objective General VS/I O Last Documented: Result Date Time Temp 98.4 12/26 0850 O2 Delivery Room air 12/26 0845 O2 Flow Rate 3 12/26 0845 Pulse Ox 94 12/26 0838 B/P 148/78 12/26 0838 B/P Mean 100.9 12/26 0838 Pulse 79 12/26 0838 Resp 20 12/26 0838 FiO2 40 12/25 1457 24 hour I O ending at 0700: 12/26 0700 12/25 1900 Intake Total Output Total 650 400 Balance -650 -400 Number 2 Bowel Movements Number Voids 1 2 Output, Urine 650 400 Patient 296 lb Weight Weight Standing scale Measurement Method PATIENT WEIGHT: Weight (lb): 296 Weight (oz): 4.82 Weight (kg): 134.400 Physical Exam General appearance: alert, awake, oriented HEENT: pupils reactive to light, sclera clear Cardiovascular: normal heart sounds, regular rat e rhythm Respiratory: aerating well, clear to auscultatio n Abdomen: soft, non-tender Genitourinary: no duran Extremities: dry, moves all Musculoskeletal: full range of motion 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 Sonya Minaya is a 65-year-old m rod with past medical history significant for diabetes, hypertension, CAD, A. fib(Xarelto), and sleep apnea who has been experiencing shortness of breath an d increased heart rate while walking only short distances. Patient also has b een having intermittent chest pain with one severe episode that woke him from sleep. 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 Cardiac work-up includ ed an echocardiogram which revealed EF 55 and mild TR. Patient underwent cardiac cathet erization today which demonstrated multivessel cor onary artery disease. CV surgery has been consulted to evaluate the need for CABG 1. Coronary artery bypass graft surgery x4 (GAMING to LAD, saphenous vein to diagonal, saphenous vein to marginal, saphenous vein to PDA). 2. Pulmonary vein isolation. 3. Isolation of left atrial appendage. 4. Endoscopic vein harvesting (right greater sap henous vein) 4/2 POD 1 Awake. alert, up in chair 2L NC with adequate sats. wean to keep sats>93% HD stable. SR on the monitor. De line. DC duran, neck line, a-line, IS/flutter. CXR reviewed. min chest tube output, dc'd left pleural now. reassessed ct output at 7pm(minimal then dcd mediastinal Bowel regimen PT/OT to ambulate Discharge plan is home with good support Electronically Signed by Kevin Hinkle MEDICINE ASSISTANT on 01/12 at 1158 RPT #:[id number] END OF REPORT 2020-12-24 18:53:00-00:00 [facility]) Cardiothoracic Surgery Prog REPORT#:[id number] REPORT STATUS: Signed DATE:12/24/20 TIME: 1852 PATIENT: SONYA MINAYA UNIT #: [id number] ROOM/BED: [address] : [address] AGE: 65 SEX: M ATTEND: Jae Jaffe MD ADM AUTHOR: Kevin Hinkle NP * ALL edits or amendments must be made on the el [employer]/computer document * General Status post: 1. Coronary artery bypass graft surgery x4 (GAMING to LAD, saphenous vein to diagonal, saphenous vein to marginal, saphenous vein to PDA). 2. Pulmonary vein isolation. 3. Isolation of left atrial appendage. 4. Endoscopic vein harvesting (right greater sap henous vein). Subjective Chief Complaint: follow up CABG Pain around chest tube site Review of Systems Constitutional: Denies: chills, fatigue, fever. Skin: Denies: rash, swelling. Eyes: Denies: redness, discharge. Respiratory: Denies: SOB, wheezing. Cardiovascular: Denies: chest pain. GI: Denies: nausea, vomiting. Musculoskeletal: Denies: joint pain, joint swelling. Objective General VS/I O Last Documented: Result Date Time Temp 98.4 12/26 0850 O2 Delivery Room air 12/26 0845 O2 Flow Rate 3 12/26 0845 Pulse Ox 94 12/26 0838 B/P 148/78 12/26 0838 B/P Mean 100.9 12/26 0838 Pulse 79 12/26 0838 Resp 20 12/26 0838 FiO2 40 12/25 1457 24 hour I O ending at 0700: 12/26 0700 12/25 1900 Intake Total Output Total 650 400 Balance -650 -400 Number 2 Bowel Movements Number Voids 1 2 Output, Urine 650 400 Patient 296 lb Weight Weight Standing scale Measurement Method PATIENT WEIGHT: Weight (lb): 296 Weight (oz): 4.82 Weight (kg): 134.400 Physical Exam General appearance: alert, awake, oriented HEENT: pupils reactive to light, sclera clear Cardiovascular: normal heart sounds, regular rat e rhythm Respiratory: aerating well, clear to auscultatio n Abdomen: soft, non-tender Genitourinary: no duran Extremities: dry, moves all Musculoskeletal: full range of motion 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 Sonya Minaya is a 65-year-old m rod with past medical history significant for diabetes, hypertension, CAD, A. fib(Xarelto), and sleep apnea who has been experiencing shortness of breath an d increased heart rate while walking only short distances. Patient also has b een having intermittent chest pain with one severe episode that woke him from sleep. 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 Cardiac work-up includ ed an echocardiogram which revealed EF 55 and mild TR. Patient underwent cardiac cathet erization today which demonstrated multivessel cor onary artery disease. CV surgery has been consulted to evaluate the need for CABG 1. Coronary artery bypass graft surgery x4 (GAMING to LAD, saphenous vein to diagonal, saphenous vein to marginal, saphenous vein to PDA). 2. Pulmonary vein isolation. 3. Isolation of left atrial appendage. 4. Endoscopic vein harvesting (right greater sap henous vein) / POD 1 Awake. alert, up in chair 2L NC with adequate sats. wean to keep sats>93% HD stable. SR on the monitor. De line. DC duran, neck line, a-line, IS/flutter. CXR reviewed. min chest tube output, dc'd left pleural now. reassessed ct output at 7pm(minimal then dcd mediastinal Bowel regimen PT/OT to ambulate Discharge plan is home with good support Electronically Signed by Kevin Hinkle NP on 01/12 at 1158 at 1414 RPT #:[id number] END OF REPORT 2020-12-24 10:40:00-00:00 [facility] Critical Care Progress Note REPORT#:[id number] REPORT STATUS: Signed DATE:12/24/20 TIME: 1040 PATIENT: SONYA MINAYA UNIT #: [id number] ROOM/BED: 3363[address]1 : 53 AGE: 65 SEX: M ATTEND: Jae Jaffe MD ADM AUTHOR: Ramin Sanchez MD * ALL edits or amendments must be made on the el [employer]/computer document * Subjective Chief complaint: Status post CABG x5, PVI and ILAA done on 12/24/19 21 HPI: 24-hour events Day 1 postop Labs reviewed On insulin drip Complains of pain around the sternum site Objective General VS/I O Last Documented: Result Date Time Pulse Ox 100 12/24 0900 B/P 112/56 12/24 09 B/P Mean 77 12/24 09 Pulse 77 12/24 0900 Resp 24 12/24 09 Temp 100.0 12/24 07 O2 Delivery Nasal cannula 12/24 718 O2 Flow Rate 4 12/24 718 FiO2 40 12/23 1440 24 hour I O ending at 0700: 12/24 0700 12/23 1900 Intake Total 3552.00 1727.00 Output Total 1121 604 Balance 2431.00 1123.00 Intake, IV 2052.00 1337.00 Intake, Oral 1500 390 Output, Chest 266 164 Tube Drainage Output, Urine 855 440 PATIENT WEIGHT: Weight (lb): 287 Weight (oz): 14.78 Weight (kg): 130.600 Medications: Active Meds + DC'd Last 24 Hrs Cyanocobalamin 500 MCG DAILY PO Ferrous Sulfate 325 MG DAILY PO Bisacodyl 10 MG ONCE PRN RECTAL Magnesium Hydroxide 30 ML ONCE PRN PO Atorvastatin Calcium 40 MG 2100 PO Clopidogrel Bisulfate 75 MG DAILY PO Polyethylene Glycol 17 GM DAILY PO Sodium Chloride 10 ML ASDIR IV Docusate Sodium 100 MG BID PO Metoprolol Tartrate 12.5 MG Q12HR PO (DC) Senna 2 TAB BEDTIME PO (CKD) Albumin Human 250 ML ONCE ONE IV (DC) Amiodarone HCl 200 MG TID PO Fentanyl Citrate 25 MCG NOW ONE IV (DC) Cefazolin Sodium 3 GM ONCE ONE IV (DC) Sodium Chloride 250 ML Mupirocin 1 APPLIC BID NASAL Potassium Chloride 100 ML .STK-MED ONE IV (DC) Sodium Bicarbonate 0 .STK-MED ONE IV (DC) Parenteral Electrolytes 1,000 ML .STK-MED ONE IV (DC) Potassium Chloride 100 ML .STK-MED ONE IV (DC) Acetaminophen 650 MG Q4H PRN PRN PO Acetaminophen 650 MG Q4H PRN PRN RECTAL (DC) Albumin Human 25 GM ASDIR PRN IV (DC) Calcium Chloride 1 GM ASDIR PRN IV (DC) Chlorhexidine Gluconate 15 ML Q2H MM (DC) Dextrose/Water 25 ML ASDIR PRN IV (CKD) Dextrose/Water 50 ML ASDIR PRN IV (CKD) Epinephrine 5 MG ASDIR IV (DC) Dextrose/Water 245 ML Glucagon 1 MG ASDIR PRN IM Insulin Human Regular 100 UNIT ASDIR IV (DC) Sodium Chloride 99 ML Magnesium Sulfate 100 ML ASDIR PRN IV Magnesium Sulfate 50 ML ASDIR PRN IV Magnesium Sulfate/Dextrose 100 ML ASDIR PRN IV Morphine Sulfate 4 MG Q2H PRN PRN IV (DC) Nitroglycerin/Dextrose 250 ML ASDIR IV (DC) Norepinephrine Bitartrate 250 ML TITRATE IV (DC) Ondansetron HCl 4 MG Q6H PRN PRN IV Oxycodone HCl 5 MG Q4H PRN PRN PO Oxycodone HCl 10 MG Q4H PRN PRN PO Potassium Chloride 100 ML ASDIR PRN IV (DC) Sodium Bicarbonate 50 MEQ ASDIR PRN IV (DC) Sodium Chloride 1,000 ML .Q20H IV (DC) Sodium Chloride 250 ML Q24H IV (DC) Cefazolin Sodium 0 .STK-MED ONE .ROUTE (DC) Amlodipine Besylate 5 MG DAILY PO (DC) Hydrochlorothiazide 25 MG DAILY PO (DC) Losartan Potassium 100 MG DAILY PO (DC) Metoprolol Succinate 100 MG DAILY PO (DC) Paroxetine HCl 40 MG DAILY PO Pantoprazole 40 MG DAILY@0600 PO Cefazolin Sodium 3 GM PREOP ONCALL IV (DC) Sodium Chloride 250 ML Vancomycin HCl 2,000 MG PREOP IV (DC) Sodium Chloride 500 ML Verapamil HCl 16.6 MG .Q24H ONE IV (DC) Heparin Sodium (Porcine) 1,660 UNIT Sodium Bicarbonate 0.7 ML Nitroglycerin/Dextrose 8.3 MG Lactated Ringer's 949.5 ML Mupirocin 1 APPLIC BID NASAL (DC) Gemfibrozil 600 MG BID PO (DC) Atropine Sulfate 0.5 MG ASDIR PRN IV (DC) Sodium Chloride 500 ML ASDIR PRN IV (DC) Results Findings/data: Laboratory Tests 12/24 12/23 12/23 12/23 0308 1435 1310 1244 Blood Gas Puncture Site R Radial Art Line Art Line O2 Saturation (90 - 100 %) 87.9 L 91.5 82.7 L 99.7 ABG pH (7.35 - 7.45) 7.416 7.345 L 7.308 L 7.35 5 ABG pCO2 (35.0 - 45 mmHg) 39.8 41.9 39.4 39.7 ABG pO2 (80 - 100.0 mmHg) 56.6 L 65.8 L 51.5 L 195.8 H ABG PO2/FiO2 Ratio (mm/Hg) 131.60 57.22 ABG HCO3 (22.0 - 26.0 MMOL/L) 25.3 22.9 19.7 L 22.2 ABG Total CO2 26.5 24.2 20.9 23.4 ABG Base Excess (-4.0 - 4.0 1.0 -2.8 -6.6 L -3 .1 MMOL/L) ABG Hematocrit (37.5 - 50.7 %) 28 L 35 L 26 L 3 1 L ABG Hemoglobin (12.5 - 16.9 G/DL) 9.4 L 11.8 L 8.8 L 10.7 L Vivek Test Positive Sodium (134 - 147 MEQ/L) 140 146 147 143 Potassium (3.4 - 5.0 MEQ/L) 4.0 3.5 2.7 *L 3.6 Chloride (100 - 108 MEQ/L) 103 107 113 H 109 H Ionized Calcium (1.12 - 1.32 1.13 1.22 1.11 L 1 .25 MMOL/L) Lactic Acid (0.9 - 1.7 mmol/l) 1.3 7.1 *H 4.2 * H 3.7 H Temperature (F) 100.4 O2 Delivery Device Cannula Adult Vent Adult Eamon t Vent Mode CPAP/PS CPAP/PS Vent Rate (/MIN) 24 FiO2 (%) 50 90 Tidal Volume (ml) 740 PEEP (cmH2O) 5 5 Pressure Support (cmH2O) 5 5 12/23 12/23 12/23 1155 1118 1054 Blood Gas O2 Saturation (90 - 100 %) 95.7 100.0 100.0 ABG pH (7.35 - 7.45) 7.365 7.398 7.422 ABG pCO2 (35.0 - 45 mmHg) 41.6 41.5 40.1 ABG pO2 (80 - 100.0 mmHg) 82.6 490.4 *H 371.9 * H ABG HCO3 (22.0 - 26.0 MMOL/L) 23.8 25.6 26.1 H ABG Total CO2 25.1 26.8 27.3 ABG Base Excess (-4.0 - 4.0 MMOL/L) -1.5 0.6 1. 5 ABG Hematocrit (37.5 - 50.7 %) 30 L 29 L 29 L ABG Hemoglobin (12.5 - 16.9 G/DL) 10.0 L 9.9 L 9.9 L Sodium (134 - 147 MEQ/L) 142 140 140 Potassium (3.4 - 5.0 MEQ/L) 2.9 L 4.1 4.4 Chloride (100 - 108 MEQ/L) 107 106 105 Ionized Calcium (1.12 - 1.32 MMOL/L) 1.12 1.10 L 1.08 L Lactic Acid (0.9 - 1.7 mmol/l) 3.0 H 2.0 H 1.8 H Laboratory Tests 12/24 12/24 12/24 12/24 12/24 0548 0358 0308 0300 0300 Chemistry Sodium (134 - 147 mEq/L) 140 Potassium (3.4 - 5.0 mEq/L) 4.0 Chloride (100 - 108 mEq/L) 107 Carbon Dioxide (21 - 33 mEq/l) 26 Anion Gap (0 - 20) 11 BUN (7 - 18 mg/dL) 18 Creatinine (0.6 - 1.3 mg/dL) 1.2 POC Creatinine (0.8 - 1.3 mg/dL) 1.2 Glomerular Filtr Rate (80 - 90) 60.4 L Glucose (70 - 110 mg/dL) 161 H POC Glucose (70 - 110 MG/DL) 164 H 144 H POC Glucose (mg/dL) (70 - 110 MG/DL) 160 H Lactic Acid (0.4 - 1.9 mmol/L) 1.4 Calcium (8.0 - 10.5 mg/dL) 8.6 Magnesium (1.80 - 2.40 mg/dL) 2.14 Total Bilirubin (0.0 - 1.0 mg/dL) 0.40 Direct Bilirubin (0.0 - 0.30 MG/DL) 0.20 Indirect Bilirubin (MG/DL) 0.20 AST (15 - 37 IUnit/L) 69 H ALT (30 - 65 IUnit/L) 17 L Total Alk Phosphatase (20 - 125 34 IUnit/L) Total Protein (6.4 - 8.2 g/dL) 5.5 L Albumin (3.4 - 5.0 g/dL) 3.50 12/24 12/24 12/23 12/23 12/23 0155 0001 2159 2106 2106 Chemistry Potassium (3.4 - 5.0 mEq/L) 4.4 POC Glucose (70 - 110 MG/DL) 151 H 145 H 131 H Lactic Acid (0.4 - 1.9 mmol/L) 1.9 12/23 12/23 12/23 12/23 12/23 1948 1807 1706 1557 1510 Chemistry POC Glucose (70 - 110 MG/DL) 174 H 183 H 174 H Lactic Acid (0.4 - 1.9 mmol/L) 5.6 *H 6.4 *H 12/23 12/23 12/23 12/23 12/23 1453 1435 1412 1310 1310 Chemistry POC Creatinine (0.8 - 1.3 mg/dL) 1.2 POC Glucose (70 - 110 MG/DL) 164 H 147 H 135 H POC Glucose (mg/dL) (70 - 110 MG/DL) 174 H Lactic Acid (0.4 - 1.9 mmol/L) 5.1 *H 12/23 12/23 12/23 12/23 12/23 1310 1310 1244 1155 1118 Chemistry Sodium (134 - 147 mEq/L) 146 Potassium (3.4 - 5.0 mEq/L) 3.5 Chloride (100 - 108 mEq/L) 112 H Carbon Dioxide (21 - 33 mEq/l) 24 Anion Gap (0 - 20) 14 BUN (7 - 18 mg/dL) 15 Creatinine (0.6 - 1.3 mg/dL) 1.1 POC Creatinine (0.8 - 1.3 mg/dL) 0.9 0.9 1.1 1. 0 Glomerular Filtr Rate (80 - 90) 66.8 L Glucose (70 - 110 mg/dL) 154 H POC Glucose (mg/dL) (70 - 110 MG/DL) 122 H 149 H 182 H 137 H Calcium (8.0 - 10.5 mg/dL) 9.0 Magnesium (1.80 - 2.40 mg/dL) 2.61 H 04 1054 Chemistry POC Creatinine (0.8 - 1.3 mg/dL) 0.9 POC Glucose (mg/dL) (70 - 110 MG/DL) 140 H Laboratory Tests 12/23 12/23 12/23 12/23 1157 1156 1120 1056 Coagulation INR (0.8 - 1.2) 1.4 H PTT (Tom) (25.0 - 39.5 Seconds) 28.2 PT Patient/Control Mix (9.3 - 12.9 SECONDS) 15. 6 H Activated Coag Time (74 - 137 SEC) 109 500 H 54 3 H Laboratory Tests 12/24 12/23 12/23 0300 1310 1156 Hematology WBC (4.5 - 11.0 x10 3/uL) 8.6 16.4 H 17.0 H RBC (4.00 - 5.60 x10 6/uL) 3.42 L 3.84 L 3.46 L Hgb (12.5 - 16.9 g/dL) 9.6 L 11.1 L 10.0 L Hct (37.5 - 50.7 %) 30.8 L 34.7 L 31.2 L MCV (81.0 - 99.0 fL) 90.1 90.4 90.2 MCH (27.0 - 33.0 pg) 28.1 28.9 28.9 MCHC (33.0 - 37.0 g/dL) 31.2 L 32.0 L 32.1 L RDW (11.5 - 14.5 %) 15.9 H 15.4 H 15.3 H Plt Count (150 - 400 x10 3/uL) 154 211 208 MPV (7.0 - 9.0 fL) 11.0 H 10.5 H 10.6 H Neut % (Auto) (56.0 - 77.0 %) 80.8 H 77.0 70.6 Lymph % (Auto) (14.0 - 32.0 %) 10.3 L 19.4 25.2 [place] % (Auto) (4.8 - 9.0 %) 8.2 2.2 L 2.6 L Eos % (Auto) (0.3 - 3.7 %) 0.0 L 0.2 L 0.2 L Baso % (Auto) (0.0 - 2.0 %) 0.2 0.3 0.4 Neut # (Auto) (2.0 - 7.6 x10 3/uL) 6.94 12.58 H 12.00 H Lymph # (Auto) (1.0 - 3.8 x10 3/uL) 0.88 L 3.18 4.28 H [place] # (Auto) (0.1 - 0.8 x10 3/uL) 0.70 0.36 0. 45 Eos # (Auto) (0.0 - 0.2 x10 3/uL) 0.00 0.04 0. 04 Baso # (Auto) (0.0 - 0.2 x10 3/uL) 0.02 0.05 0. 06 Abs Immat Gran (auto) (0.00 - 0.03 x10 3/uL) 0. 04 H 0.15 H 0.17 H Add Manual Diff NO NO NO Immature Gran % (0.0 - 2.0 %) 0.5 0.9 1.0 Nucleated RBC % (0 - 0 %) 0.0 0.0 0.0 Nucleated RBCs # (Man) (0.0 - 0.1 x10 3/uL) 0.0 0 0.00 0.00 Laboratory Tests 12/24/20 0300: [Embedded Image Not Available] 12/23/20 2106: [Embedded Image Not Available] 12/23/20 1310: [Embedded Image Not Available] 12/23/20 1156: [Embedded Image Not Available] Microbiology: 12/22 2210 NASAL: MSSA Surveillance Screen - COM P 12/22 2210 NASAL: MRSA DNA Surveillance Screen - COMP 12/22 1548 NASAL: MRSA DNA Surveillance Screen - ORD Radiology data Recent Impressions: RADIOLOGY - XR CHEST 1 V 12/23 1337 Report Impression - Status: SIGNED Entered: 12/23/2020 6097 IMPRESSION: 1. Postoperative chest with diminished lung volu mes, indistinct perihilar opacities and left basilar pleural-par enchymal disease. Indistinct appearance of the postoperative cardi ac silhouette. SL: [id number] Impression By: Oma Torres M.D. RADIOLOGY - XR CHEST 1 V 12/24 4722 Report Impression - Status: SIGNED Entered: 12/24/2020 0812 IMPRESSION: 1. Extubation and nasogastric tube removal with slightly improved pulmonary aeration. 2. Persistent bilateral perihilar and bibasilar pulmonary opacities, probably representing atelectasis and or secreti ons. 3. Probable low-volume pleural fluid. SL: ER-H Impression By: [email or web address] - Donato tian M.D. Free Text Obj Notes Free Text Obj Notes: Physical exam: VS reviewed General: Awake, alert, obese, in mild distress s econdary to pain HEENT: PERRLA, normal conjunctiva Mouth is moist Neck, Supple Heart: RRR with no murmurs Lungs: Decreased breath sounds, no crackles Abdomen: soft, NT, mild abdominal distention Extr: Minimal lower leg edema Neuro: Awake, alert, follow basic commands Skin: No rashes Has [address] Sternum: Incision is closed with dressings Diagnosis, Assessment Plan Free text A P: 65-year-old male, with a past medical history of multivessel coronary artery disease, diabetes mellitus, hypertension, atrial fibrillation on Xarelto at home , obstructive sleep apnea, on CPAP, hyperlipidem ia, obesity. Patient had a cardiac cath done and showed multivessel disease . Cardiothoracic was consulted.Status post CABG x5, PVI and ILAA done on 12/23/2020. Patient received 2 L of demarco talloids, 620 mL of Cell Saver, 1 unit of autologous blood, EBL 100 mL, patient is intubated, ET tube 8.5 cm, on mechanical ventilation, on low-dose epi nephrine drip, insulin drip, Amicar drip, and has [address] Status post CABG x5, PVI and ILAA done on 12/24/19 21. Coronary artery disease, multivessel Diabetes mellitus, hemoglobin A1c is 5.6 Hypertension Atrial fibrillation Hyperlipidemia Obesity DAMEON Acute anemia blood loss, postop Acute hypoxic respiratory failure, postop Plan: Transferred to CVICU for further care Patient currently is off sedation, plan is to do vacation sedation and goal is to extubate. Keep MAP more than 65 mmhg, patient curr ently is on low-dose epinephrine drip, titrate epinephrine drip for now. Will give 500 mL of crystalloids. Check labs now Patient currently is intubat ed, on mechanical ventilation, plan is to put him on SIMV, ABG reviewed, hypoxic, monitor him closely . Acidotic. Plan is to do vacation sedation and then do SBT and goal is to extubate today. Keep O2 sats more than 91%. Patient has a history of sleep apnea, we ars CPAP at home, once he is extubated he needs to be on BiPAP or CPAP at bedtime and d uring naps. ABG reviewed Continue insulin drip per CABG protocol, also th e patient is diabetic, needs tight glucose control. Hyperlipidemia, plan is to continue Lipitor. Atrial fibrillation, monitor him closely, status post ILAA CABG orders were written. Continue Amicar drip per protocol Has chest tubes #[address], continue to monitor chest tube output. Hypokalemia, replete potassium now. Trend lactic acid 12/24/2020 Day 1 postop of CABG Extubated yesterday On insulin drip per CABG protocol, plan is to tr ansition to sliding scale insulin Needs incentive spirometry Has DAMEON, he has his home CPA P, he needs to wear CPAP at bedtime and during naps Keep O2 sats more than 90%, wean O2 On aspirin, Plavix, Lipitor PT and OT consulted Out of bed Remove Duran, remove central line, remove arteri al line Continue stool softeners Urine output is 1.2 L, continue to monit or input and output, creatinine is 1.2 today Lactic acid is 1.4 Discussed with thoracic surgery this morning Electronically Signed by Ramin Sanchez MD 12/24/20 at 1435 RPT #:[id number] END OF REPORT 2020-12-24 08:13:00-00:00 [facility] ([facility]) Cardiology Progress Note REPORT#:[id number] REPORT STATUS: Signed DATE:12/24/20 TIME: 812 PATIENT: SONYA MINAYA UNIT #: [id number] ROOM/BED: 2204-1 : 53 AGE: 65 SEX: M ATTEND: Jae Jaffe MD ADM AUTHOR: Ian Coronel MD * ALL edits or amendments must be made on the el [employer]ronic/[employer] document * Subjective Chief Complaint: better Objective General VS/I O: 24 hour I O ending at 0700: 12/24 0700 04/ 1900 Intake Total 3552.00 1727.00 Output Total 1121 604 Balance 2431.00 1123.00 Intake, IV 2052.00 1337.00 Intake, Oral 1500 390 Output, Chest 266 164 Tube Drainage Output, Urine 855 440 Vital Signs: Date Time Temp Pulse Resp B/P B/P Pulse O2 O2 F low FiO2 Mean Ox Delivery Rate / 0719 100.0 04/ 0719 Nasal 4 cannula / 0530 100.2 82 27 118/67 84 92 04/02 0500 100.4 85 24 105/58 76 80 04/02 0430 119/53 71 04/02 0430 100.4 83 22 112/54 78 95 04/02 0400 100.4 81 22 102/66 79 94 04/02 0330 100.4 80 22 105/55 72 94 04/02 0300 108/55 71 04/02 0300 100.4 81 22 110/57 75 94 04/02 0230 123/51 70 04/02 0230 100.6 86 21 111/62 81 93 04/02 0200 109/52 69 04/02 0200 100.9 90 19 97/55 71 92 04/02 0130 107/63 82 04/02 0130 100.8 101 43 119/55 78 89 04/02 0116 131/58 79 04/02 0116 100.8 92 25 117/57 82 94 04/02 0100 122/57 75 04/02 0100 100.8 91 23 115/59 85 93 04/02 0030 134/57 78 04/02 0030 100.8 92 21 114/61 81 94 04/02 0000 123/58 76 04/02 0000 100.8 96 26 123/66 88 94 04/01 2300 93/60 72 04/01 2300 100.6 92 21 98/51 70 96 04/01 2245 97/62 73 04/01 2245 100.4 90 19 105/59 79 97 04/01 2230 100/63 76 04/01 2230 100.4 92 23 107/56 77 96 04/01 2215 108/59 75 04/01 2215 100.4 92 22 109/59 80 96 04/01 2200 100.6 93 20 103/59 76 93 04/01 2148 91 Nasal 2 cannula /2144 100.4 96 19 104/57 77 91 04/01 0 100.2 96 20 97/53 70 91 04/01 2114 100.2 93 14 101/56 75 93 04/01 211 100.2 93 21 94/55 71 92 04/01 2100 82/56 65 04/01 2100 100.2 92 19 99/58 76 92 04/01 2044 103/54 68 04/01 2044 100.2 92 20 92/55 68 92 04/01 2030 89/60 71 04/01 2029 100.2 91 20 100/55 73 90 04/2014 99/50 64 04/01 2014 100.0 92 20 98/53 73 91 04/01 1999 Nasal 2 cannula 04/1999 110/59 74 04/01 1999 100.0 91 19 107/55 75 91 04/01 1945 107/56 71 04/01 1945 100.0 90 17 102/55 73 91 04/01 1930 87/50 62 04/01 1930 100.0 92 18 99/53 72 91 04/01 1915 105/49 66 04/01 1915 100.0 92 11 96/52 69 92 04/01 1900 111/50 68 04/01 1900 100.0 92 14 103/56 73 93 04/01 1830 111/50 67 04/01 1830 100.0 93 14 105/52 73 94 04/01 1815 100.0 95 22 94/51 69 93 04/01 1800 85/53 63 04/01 1800 100.0 98 22 100/59 76 93 04/01 1745 100/47 63 04/01 1745 94/52 64 04/01 1744 99.9 97 13 97/47 62 93 04/01 1730 99/45 61 04/01 1730 99.9 96 15 94/51 68 93 04/01 1715 97/49 61 04/01 1715 99.9 96 16 94/51 70 93 04/01 1701 99.7 97 21 111/58 77 94 04/01 1700 99/47 63 04/01 1700 99.7 97 16 89/53 66 95 04/01 1645 100/50 64 04/01 1645 99.7 96 13 88/55 67 95 04/01 1630 110/47 64 04/01 1630 99.5 95 24 102/59 76 94 04/01 1616 91/49 61 04/01 1616 99.5 96 20 105/51 73 94 04/01 1600 95/49 61 04/01 1600 99.3 92 22 98/51 70 95 04/01 1545 109/46 63 04/01 1545 99.1 92 22 100/58 76 98 04/01 1530 97/49 61 04/01 1530 99.0 92 23 92/53 67 99 04/01 1515 86/48 58 04/01 1515 99.0 88 15 92/53 67 98 04/01 1500 96/50 63 04/01 1500 98.8 89 23 110/55 76 98 04/01 1446 114/50 66 04/01 1446 98.6 87 23 98 04/01 1440 99 Nasal 5 40 cannula 04/01 1440 77 20 99 04/01 1430 98/48 61 04/01 1430 98.2 82 17 98/56 73 98 04/01 1415 104/52 65 04/01 1415 97.9 81 20 101/56 72 96 04/01 1401 115/52 69 04/01 1401 97.2 81 23 111/68 81 96 04/01 1400 50 04/01 1346 89/52 60 04/01 1345 97.5 72 27 90/48 60 84 04/01 1330 Ventilator 60 04/01 1330 139/21 66 04/01 1330 97.3 76 109/59 77 81 04/01 1326 108/54 68 04/01 1326 97.3 83 47 108/67 79 86 04/01 1321 97.2 82 111/52 75 86 04/01 1316 125/59 77 04/01 1316 97.2 85 127/89 104 87 04/01 1315 97.2 84 8 124/62 80 86 04/01 1310 102/43 59 04/01 1310 97.3 83 16 89/51 63 87 04/01 1309 77 92 100 04/01 1307 90/35 52 04/01 1307 97.2 87 17 87/48 62 89 PATIENT WEIGHT: Weight (lb): 287 Weight (oz): 14.78 Weight (kg): 130.600 Medications: Active Meds + DC'd Last 24 Hrs Cyanocobalamin 500 MCG DAILY PO Ferrous Sulfate 325 MG DAILY PO Bisacodyl 10 MG ONCE PRN RECTAL Magnesium Hydroxide 30 ML ONCE PRN PO Atorvastatin Calcium 40 MG 2100 PO Clopidogrel Bisulfate 75 MG DAILY PO Polyethylene Glycol 17 GM DAILY PO Sodium Chloride 10 ML ASDIR IV Docusate Sodium 100 MG BID PO Metoprolol Tartrate 12.5 MG Q12HR PO Senna 2 TAB BEDTIME PO (CKD) Albumin Human 250 ML ONCE ONE IV (DC) Amiodarone HCl 200 MG TID PO Fentanyl Citrate 25 MCG NOW ONE IV (DC) Cefazolin Sodium 3 GM ONCE ONE IV Sodium Chloride 250 ML Mupirocin 1 APPLIC BID NASAL Potassium Chloride 100 ML .STK-MED ONE IV (DC) Sodium Bicarbonate 0 .STK-MED ONE IV (DC) Parenteral Electrolytes 1,000 ML .STK-MED ONE IV (DC) Potassium Chloride 100 ML .STK-MED ONE IV (DC) Acetaminophen 650 MG Q4H PRN PRN PO Acetaminophen 650 MG Q4H PRN PRN RECTAL Albumin Human 25 GM ASDIR PRN IV Calcium Chloride 1 GM ASDIR PRN IV Chlorhexidine Gluconate 15 ML Q2H MM (DC) Dextrose/Water 25 ML ASDIR PRN IV (CKD) Dextrose/Water 50 ML ASDIR PRN IV (CKD) Epinephrine 5 MG ASDIR IV Dextrose/Water 245 ML Glucagon 1 MG ASDIR PRN IM Insulin Human Regular 100 UNIT ASDIR IV (CKD) Sodium Chloride 99 ML Magnesium Sulfate 100 ML ASDIR PRN IV Magnesium Sulfate 50 ML ASDIR PRN IV Magnesium Sulfate/Dextrose 100 ML ASDIR PRN IV Morphine Sulfate 4 MG Q2H PRN PRN IV Nitroglycerin/Dextrose 250 ML ASDIR IV Norepinephrine Bitartrate 250 ML TITRATE IV Ondansetron HCl 4 MG Q6H PRN PRN IV Oxycodone HCl 5 MG Q4H PRN PRN PO Oxycodone HCl 10 MG Q4H PRN PRN PO Potassium Chloride 100 ML ASDIR PRN IV Sodium Bicarbonate 50 MEQ ASDIR PRN IV Sodium Chloride 1,000 ML .Q20H IV Sodium Chloride 250 ML Q24H IV Cefazolin Sodium 0 .STK-MED ONE .ROUTE (DC) Sodium Chloride 100 ML .STK-MED ONE IV (DC) Glycopyrrolate 0 .STK-MED ONE .ROUTE (DC) Metoclopramide HCl 0 .STK-MED ONE .ROUTE (DC) Neostigmine Methylsulfate 0 .STK-MED ONE .ROUTE (DC) Ondansetron HCl 0 .STK-MED ONE .ROUTE (DC) Sevoflurane 0 .STK-MED ONE INH (DC) Amlodipine Besylate 5 MG DAILY PO (DC) Hydrochlorothiazide 25 MG DAILY PO (DC) Losartan Potassium 100 MG DAILY PO (DC) Hydrochlorothiazide 25 MG Losartan Potassium 100 MG DAILY PO (DC) Metoprolol Succinate 100 MG DAILY PO (DC) Paroxetine HCl 40 MG DAILY PO Pantoprazole 40 MG DAILY@0600 PO Cefazolin Sodium 3 GM PREOP ONCALL IV (DC) Sodium Chloride 250 ML Vancomycin HCl 2,000 MG PREOP IV (DC) Sodium Chloride 500 ML Verapamil HCl 16.6 MG .Q24H ONE IV (DC) Heparin Sodium (Porcine) 1,660 UNIT Sodium Bicarbonate 0.7 ML Nitroglycerin/Dextrose 8.3 MG Lactated Ringer's 949.5 ML Mupirocin 1 APPLIC BID NASAL (DC) Gemfibrozil 600 MG BID PO (DC) Atropine Sulfate 0.5 MG ASDIR PRN IV (DC) Sodium Chloride 500 ML ASDIR PRN IV (DC) Physical Exam General appearance: alert, awake Neck: full range of motion, non-tender, normal thyroid, supple/no meningismus, no bruit/NL carotids, no JVD, no lymphadenopathy , no masses or swelling Cardiovascular: CV assessment: regular rate and rhythm Respiratory: clear to auscultation, no distress Abdomen: non-tender, normal bowel sounds , no distention, no guarding, no mass/ organomegaly, no pulsatile mass, no rebound Upper extremity: UE assessment: normal capillary refill, no luis armando a Results Findings/Data: Laboratory Tests 12/24 12/23 12/23 12/23 0308 1435 1310 1244 Blood Gas Puncture Site R Radial Art Line Art Line O2 Saturation (90 - 100 %) 87.9 L 91.5 82.7 L 9 9.7 ABG pH (7.35 - 7.45) 7.416 7.345 L 7.308 L 7.35 5 ABG pCO2 (35.0 - 45 mmHg) 39.8 41.9 39.4 39.7 ABG pO2 (80 - 100.0 mmHg) 56.6 L 65.8 L 51.5 L 195.8 H ABG PO2/FiO2 Ratio (mm/Hg) 131.60 57.22 ABG HCO3 (22.0 - 26.0 MMOL/L) 25.3 22.9 19.7 L 22.2 ABG Total CO2 26.5 24.2 20.9 23.4 ABG Base Excess (-4.0 - 4.0 1.0 -2.8 -6.6 L -3. 1 MMOL/L) ABG Hematocrit (37.5 - 50.7 %) 28 L 35 L 26 L 3 1 L ABG Hemoglobin (12.5 - 16.9 G/DL) 9.4 L 11.8 L 8.8 L 10.7 L Vivek Test Positive Sodium (134 - 147 MEQ/L) 140 146 147 143 Potassium (3.4 - 5.0 MEQ/L) 4.0 3.5 2.7 *L 3.6 Chloride (100 - 108 MEQ/L) 103 107 113 H 109 H Ionized Calcium (1.12 - 1.32 1.13 1.22 1.11 L 1 .25 MMOL/L) Lactic Acid (0.9 - 1.7 mmol/l) 1.3 7.1 *H 4.2 * H 3.7 H Temperature (F) 100.4 O2 Delivery Device Cannula Adult Vent Adult Eamon t Vent Mode CPAP/PS CPAP/PS Vent Rate (/MIN) 24 FiO2 (%) 50 90 Tidal Volume (ml) 740 PEEP (cmH2O) 5 5 Pressure Support (cmH2O) 5 5 12/23 12/23 12/23 12/23 1155 1118 1054 1020 Blood Gas O2 Saturation (90 - 100 %) 95.7 100.0 100.0 99. 9 ABG pH (7.35 - 7.45) 7.365 7.398 7.422 7.421 ABG pCO2 (35.0 - 45 mmHg) 41.6 41.5 40.1 39.2 ABG pO2 (80 - 100.0 mmHg) 82.6 490.4 *H 371.9 * H 252.2 *H ABG HCO3 (22.0 - 26.0 MMOL/L) 23.8 25.6 26.1 H 25.5 ABG Total CO2 25.1 26.8 27.3 26.7 ABG Base Excess (-4.0 - 4.0 MMOL/L) -1.5 0.6 1. 5 1.0 ABG Hematocrit (37.5 - 50.7 %) 30 L 29 L 29 L 2 9 L ABG Hemoglobin (12.5 - 16.9 G/DL) 10.0 L 9.9 L 9.9 L 9.9 L Sodium (134 - 147 MEQ/L) 142 140 140 139 Potassium (3.4 - 5.0 MEQ/L) 2.9 L 4.1 4.4 4.1 Chloride (100 - 108 MEQ/L) 107 106 105 105 Ionized Calcium (1.12 - 1.32 MMOL/L) 1.12 1.10 L 1.08 L 1.06 L Lactic Acid (0.9 - 1.7 mmol/l) 3.0 H 2.0 H 1.8 H 1.0 12/23 12/23 0951 0909 Blood Gas O2 Saturation (90 - 100 %) 99.9 99.6 ABG pH (7.35 - 7.45) 7.419 7.390 ABG pCO2 (35.0 - 45 mmHg) 40.7 41.0 ABG pO2 (80 - 100.0 mmHg) 320.1 *H 178.3 H ABG HCO3 (22.0 - 26.0 MMOL/L) 26.4 H 24.8 ABG Total CO2 27.6 26.1 ABG Base Excess (-4.0 - 4.0 MMOL/L) 1.7 -0.2 ABG Hematocrit (37.5 - 50.7 %) 30 L 39 ABG Hemoglobin (12.5 - 16.9 G/DL) 10.3 L 13.1 Sodium (134 - 147 MEQ/L) 139 141 Potassium (3.4 - 5.0 MEQ/L) 4.2 3.6 Chloride (100 - 108 MEQ/L) 104 106 Ionized Calcium (1.12 - 1.32 MMOL/L) 1.03 L 1.1 5 Lactic Acid (0.9 - 1.7 mmol/l) 1.1 0.9 Laboratory Tests 12/24 12/24 12/24 12/24 12/24 0548 0358 0308 0300 0300 Chemistry Sodium (134 - 147 mEq/L) 140 Potassium (3.4 - 5.0 mEq/L) 4.0 Chloride (100 - 108 mEq/L) 107 Carbon Dioxide (21 - 33 mEq/l) 26 Anion Gap (0 - 20) 11 BUN (7 - 18 mg/dL) 18 Creatinine (0.6 - 1.3 mg/dL) 1.2 POC Creatinine (0.8 - 1.3 mg/dL) 1.2 Glomerular Filtr Rate (80 - 90) 60.4 L Glucose (70 - 110 mg/dL) 161 H POC Glucose (70 - 110 MG/DL) 164 H 144 H POC Glucose (mg/dL) (70 - 110 MG/DL) 160 H Lactic Acid (0.4 - 1.9 mmol/L) 1.4 Calcium (8.0 - 10.5 mg/dL) 8.6 Magnesium (1.80 - 2.40 mg/dL) 2.14 Total Bilirubin (0.0 - 1.0 mg/dL) 0.40 Direct Bilirubin (0.0 - 0.30 MG/DL) 0.20 Indirect Bilirubin (MG/DL) 0.20 AST (15 - 37 IUnit/L) 69 H ALT (30 - 65 IUnit/L) 17 L Total Alk Phosphatase (20 - 125 34 IUnit/L) Total Protein (6.4 - 8.2 g/dL) 5.5 L Albumin (3.4 - 5.0 g/dL) 3.50 12/24 12/24 12/23 12/23 12/23 0155 0001 2159 2106 2106 Chemistry Potassium (3.4 - 5.0 mEq/L) 4.4 POC Glucose (70 - 110 MG/DL) 151 H 145 H 131 H Lactic Acid (0.4 - 1.9 mmol/L) 1.9 12/23 12/23 12/23 12/23 12/23 1948 1807 1706 1557 1510 Chemistry POC Glucose (70 - 110 MG/DL) 174 H 183 H 174 H Lactic Acid (0.4 - 1.9 mmol/L) 5.6 *H 6.4 *H 12/23 12/23 12/23 12/23 12/23 1453 1435 1412 1310 1310 Chemistry POC Creatinine (0.8 - 1.3 mg/dL) 1.2 POC Glucose (70 - 110 MG/DL) 164 H 147 H 135 H POC Glucose (mg/dL) (70 - 110 MG/DL) 174 H Lactic Acid (0.4 - 1.9 mmol/L) 5.1 *H 12/23 12/23 12/23 12/23 12/23 1310 1310 1244 1155 1118 Chemistry Sodium (134 - 147 mEq/L) 146 Potassium (3.4 - 5.0 mEq/L) 3.5 Chloride (100 - 108 mEq/L) 112 H Carbon Dioxide (21 - 33 mEq/l) 24 Anion Gap (0 - 20) 14 BUN (7 - 18 mg/dL) 15 Creatinine (0.6 - 1.3 mg/dL) 1.1 POC Creatinine (0.8 - 1.3 mg/dL) 0.9 0.9 1.1 1. 0 Glomerular Filtr Rate (80 - 90) 66.8 L Glucose (70 - 110 mg/dL) 154 H POC Glucose (mg/dL) (70 - 110 MG/DL) 122 H 149 H 182 H 137 H Calcium (8.0 - 10.5 mg/dL) 9.0 Magnesium (1.80 - 2.40 mg/dL) 2.61 H 12/23 12/23 12/23 12/23 1054 1020 0951 0909 Chemistry POC Creatinine (0.8 - 1.3 mg/dL) 0.9 1.0 0.9 1. 0 POC Glucose (mg/dL) (70 - 110 MG/DL) 140 H 136 H 135 H 161 H Laboratory Tests 12/23 12/23 12/23 12/23 1157 1156 1120 1056 Coagulation INR (0.8 - 1.2) 1.4 H PTT ([place]) (25.0 - 39.5 Seconds) 28.2 PT Patient/Control Mix (9.3 - 12.9 SECONDS) 15. 6 H Activated Coag Time (74 - 137 SEC) 109 500 H 54 3 H 12/23 12/23 12/23 12/23 1022 0953 0927 0926 Coagulation Activated Coag Time (74 - 137 SEC) 670 H 654 H 626 H 626 H Laboratory Tests 12/24 12/23 12/23 0300 1310 1156 Hematology WBC (4.5 - 11.0 x10 3/uL) 8.6 16.4 H 17.0 H RBC (4.00 - 5.60 x10 6/uL) 3.42 L 3.84 L 3.46 L Hgb (12.5 - 16.9 g/dL) 9.6 L 11.1 L 10.0 L Hct (37.5 - 50.7 %) 30.8 L 34.7 L 31.2 L MCV (81.0 - 99.0 fL) 90.1 90.4 90.2 MCH (27.0 - 33.0 pg) 28.1 28.9 28.9 MCHC (33.0 - 37.0 g/dL) 31.2 L 32.0 L 32.1 L RDW (11.5 - 14.5 %) 15.9 H 15.4 H 15.3 H Plt Count (150 - 400 x10 3/uL) 154 211 208 MPV (7.0 - 9.0 fL) 11.0 H 10.5 H 10.6 H Neut % (Auto) (56.0 - 77.0 %) 80.8 H 77.0 70.6 Lymph % (Auto) (14.0 - 32.0 %) 10.3 L 19.4 25. 2 [place] % (Auto) (4.8 - 9.0 %) 8.2 2.2 L 2.6 L Eos % (Auto) (0.3 - 3.7 %) 0.0 L 0.2 L 0.2 L Baso % (Auto) (0.0 - 2.0 %) 0.2 0.3 0.4 Neut # (Auto) (2.0 - 7.6 x10 3/uL) 6.94 12.58 H 12.00 H Lymph # (Auto) (1.0 - 3.8 x10 3/uL) 0.88 L 3.1 8 4.28 H [place] # (Auto) (0.1 - 0.8 x10 3/uL) 0.70 0.36 0. 45 Eos # (Auto) (0.0 - 0.2 x10 3/uL) 0.00 0.04 0.0 4 Baso # (Auto) (0.0 - 0.2 x10 3/uL) 0.02 0.05 0. 06 Abs Immat Gran (auto) (0.00 - 0.03 x10 3/uL) 0. 04 H 0.15 H 0.17 H Add Manual Diff NO NO NO Immature Gran % (0.0 - 2.0 %) 0.5 0.9 1.0 Nucleated RBC % (0 - 0 %) 0.0 0.0 0.0 Nucleated RBCs # (Man) (0.0 - 0.1 x10 3/uL) 0.0 0 0.00 0.00 Laboratory Tests 12/24 12/23 0300 1310 Chemistry Magnesium (1.80 - 2.40 mg/dL) 2.14 2.61 H Radiology data: Recent Impressions: RADIOLOGY - XR CHEST 1 V 12/23 1337 Report Impression - Status: SIGNED Entered: 12/23/2020 1427 IMPRESSION: 1. Postoperative chest with diminished lung volu mes, indistinct perihilar opacities and left basilar pleural-par enchymal disease. Indistinct appearance of the postoperative cardi ac silhouette. SL: [id number] Impression By: Oma Torres M.D. RADIOLOGY - XR CHEST 1 V 12/24 0549 Report Impression - Status: SIGNED Entered: 12/24/2020 0812 IMPRESSION: 1. Extubation and nasogastric tube removal with slightly improved pulmonary aeration. 2. Persistent bilateral perihilar and bibasilar pulmonary opacities, probably representing atelectasis and or secreti ons. 3. Probable low-volume pleural fluid. SL: ER-H Impression By: Trip tian M.D. Diagnosis, Assessment Plan Free Text DxA P Notes Free Text DxA P Notes: 1. 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 Obesity 3. HTN 4. Hyperlipedemia 5. NIDDM 6. Sleesp apnea PER CTS Electronically Signed by Ian Coronel MD on 11/14 at 0815 RPT #:[id number] END OF REPORT 2020-12-24 04:10:00-00:00 [id number] [place] [id number] PATIENT NAME: SONYA MINAYA ADMIT DATE: ACCOUNT NO: [id number] ROOM NO: [facility] [place] AGE: 65 REPORT TYPE: eELECTROCARDIOGRAM REPORT SEX: M ADMITTING PHYSICIAN:Jae Jaffe MD ATTENDING PHYSICIAN:Jae Jaffe MD Order: [id number] Test Reason : POD 1 Test Date/Time Stamp: SunDec 24 2020 04:10:52 Blood Pressure : / mmHG Vent. Rate : 084 BPM Atrial Rate : 084 BPM P-R Int : 222 ms QRS Dur : 080 ms QT Int : 384 ms P-R-T Axes : 087 002 027 degree s QTc Int : 453 ms Sinus rhythm with 1st degree AV block Low voltage QRS Borderline ECG When compared with ECG of 23-DEC-2020 13:27, Significant changes have occurred Confirmed by MD CORONEL GERARD ([id number]) on 6:06:54 PM Referred By: Zara Kumari Confirmed by:SHANTELL CORONEL MD Electronically Signed by Ian Coronel MD on 11/14 at 1807 PATIENT NAME: SONYA MINAYA 0927 2020-12-24 01:42:00-00:00 [facility] REPORT#:[id number] REPORT STATUS: Signed DATE:12/24/20 TIME: 014 PATIENT: SONYA MINAYA UNIT #: [id number] ROOM/BED: [facility] [place]-1 : 53 AGE: 65 SEX: M ATTEND: Jae Jaffe MD ADM AUTHOR: Junie Yu MEDICINE ASSISTANT * ALL edits or amendments must be made on the el [employer]/computer document * Subjective Chief Complaint: Visit coronary artery disease Status post CABG x4 Free Text Subj Notes Free Text Subj Notes: Constitutional: Denies: chills, fever. ENT: Reports: sore throat. Denies: earache, nasal con gestion. Respiratory: Reports: FREEMAN (dyspnea on exe rtion). Denies: hemoptysis, parox nocturnal dyspnea , pleurisy, pleuritic pain, pneumonia, SOB, whee zing. Cardiovascular: Reports: chest pain. Denies: palpitations. GI: Denies: abdominal pain, nausea, vomiting. : Reports: other. Musculoskeletal: Reports: extremity pain, extremity swelling. Den ies: joint pain, lumbar pain, neck pain. Neuro: Denies: focal weakness, headache, slurred speech . Psych: Denies: agitation, anxiety, auditory hallucinati on, change in mental status, confusion, delusional, depre ssion, homicidal ideation, hostile, insomnia, stress , suicidal ideation, visual hallucination. Objective General VS/I O: Vital Signs Date Temp Pulse Resp B/P B/P Mean Pulse Ox FiO2 36.2-38.2 59-98 8-47 82-139/21-89 52-104 81-99 40-100 Last Documented: Result Date Time B/P B/ Pulse Tem Pu Re O2 Delivery Nasal cannula 12/24 2147 O2 Flow Rate 2 12/24 2147 FiO2 40 12/23 1440 24 hour I O ending at 0700: 12/23 1900 Intake Total 1727.00 Output Total 604 Balance 1123.00 Intake, IV 1337.00 Intake, Oral 390 Output, Chest 164 Tube Drainage Output, Urine 440 PATIENT WEIGHT: Weight (lb): 287 Weight (oz): 14.78 Weight (kg): 130.600 Results Findings/Data: Laboratory Tests 12/23/20 2106: [Embedded Image Not Available] 12/23/20 1310: [Embedded Image Not Available] 12/23/20 1156: [Embedded Image Not Available] 12/23/20 0400: [Embedded Image Not Available] Laboratory Tests 12/23 12/23 12/23 12/23 1435 1310 1244 1155 Blood Gas Puncture Site Art Line Art Line O2 Saturation (90 - 100 %) 91.5 82.7 L 99.7 95. 7 ABG pH (7.35 - 7.45) 7.345 L 7.308 L 7.355 7.36 5 ABG pCO2 (35.0 - 45 mmHg) 41.9 39.4 39.7 41.6 ABG pO2 (80 - 100.0 mmHg) 65.8 L 51.5 L 195.8 H 82.6 ABG PO2/FiO2 Ratio (mm/Hg) 131.60 57.22 ABG HCO3 (22.0 - 26.0 MMOL/L) 22.9 19.7 L 22.2 23.8 ABG Total CO2 24.2 20.9 23.4 25.1 ABG Base Excess (-4.0 - 4.0 MMOL/L) -2.8 -6.6 L -3.1 -1.5 ABG Hematocrit (37.5 - 50.7 %) 35 L 26 L 31 L 3 0 L ABG Hemoglobin (12.5 - 16.9 G/DL) 11.8 L 8.8 L 10.7 L 10.0 L Sodium (134 - 147 MEQ/L) 146 147 143 142 Potassium (3.4 - 5.0 MEQ/L) 3.5 2.7 *L 3.6 2.9 L Chloride (100 - 108 MEQ/L) 107 113 H 109 H 107 Ionized Calcium (1.12 - 1.32 MMOL/L) 1.22 1.11 L 1.25 1.12 Lactic Acid (0.9 - 1.7 mmol/l) 7.1 *H 4.2 *H 3. 7 H 3.0 H O2 Delivery Device Adult Vent Adult Vent Vent Mode CPAP/PS CPAP/PS Vent Rate (/MIN) 24 FiO2 (%) 50 90 Tidal Volume (ml) 740 PEEP (cmH2O) 5 5 Pressure Support (cmH2O) 5 5 12/23 12/23 12/23 12/23 1118 1054 1020 0951 Blood Gas O2 Saturation (90 - 100 %) 100.0 100.0 99.9 99. 9 ABG pH (7.35 - 7.45) 7.398 7.422 7.421 7.419 ABG pCO2 (35.0 - 45 mmHg) 41.5 40.1 39.2 40.7 ABG pO2 (80 - 100.0 mmHg) 490.4 *H 371.9 *H 252 .2 *H 320.1 *H ABG HCO3 (22.0 - 26.0 MMOL/L) 25.6 26.1 H 25.5 26.4 H ABG Total CO2 26.8 27.3 26.7 27.6 ABG Base Excess (-4.0 - 4.0 MMOL/L) 0.6 1.5 1.0 1.7 ABG Hematocrit (37.5 - 50.7 %) 29 L 29 L 29 L 3 0 L ABG Hemoglobin (12.5 - 16.9 G/DL) 9.9 L 9.9 L 9 .9 L 10.3 L Sodium (134 - 147 MEQ/L) 140 140 139 139 Potassium (3.4 - 5.0 MEQ/L) 4.1 4.4 4.1 4.2 Chloride (100 - 108 MEQ/L) 106 105 105 104 Ionized Calcium (1.12 - 1.32 MMOL/L) 1.10 L 1.0 8 L 1.06 L 1.03 L Lactic Acid (0.9 - 1.7 mmol/l) 2.0 H 1.8 H 1.0 1.1 12/23 12/23 0909 0703 Blood Gas O2 Saturation (90 - 100 %) 99.6 96.0 ABG pH (7.35 - 7.45) 7.390 7.396 ABG pCO2 (35.0 - 45 mmHg) 41.0 45.2 H ABG pO2 (80 - 100.0 mmHg) 178.3 H 83.0 ABG HCO3 (22.0 - 26.0 MMOL/L) 24.8 27.8 H ABG Total CO2 26.1 29.2 ABG Base Excess (-4.0 - 4.0 MMOL/L) -0.2 2.3 ABG Hematocrit (37.5 - 50.7 %) 39 40 ABG Hemoglobin (12.5 - 16.9 G/DL) 13.1 13.7 Sodium (134 - 147 MEQ/L) 141 141 Potassium (3.4 - 5.0 MEQ/L) 3.6 3.5 Chloride (100 - 108 MEQ/L) 106 105 Ionized Calcium (1.12 - 1.32 MMOL/L) 1.15 1.19 Lactic Acid (0.9 - 1.7 mmol/l) 0.9 1.5 Laboratory Tests 12/24 12/23 12/23 12/23 12/23 0001 2159 2106 2106 1948 Chemistry Potassium (3.4 - 5.0 mEq/L) 4.4 POC Glucose (70 - 110 MG/DL) 145 H 131 H 174 H Lactic Acid (0.4 - 1.9 mmol/L) 1.9 12/23 12/23 12/23 12/23 12/23 1807 1706 1557 1510 1453 Chemistry POC Glucose (70 - 110 MG/DL) 183 H 174 H 164 H Lactic Acid (0.4 - 1.9 mmol/L) 5.6 *H 6.4 *H 12/23 12/23 12/23 12/23 12/23 1435 1412 1310 1310 1310 Chemistry POC Creatinine (0.8 - 1.3 mg/dL) 1.2 0.9 POC Glucose (70 - 110 MG/DL) 147 H 135 H POC Glucose (mg/dL) (70 - 110 MG/DL) 174 H 122 H Lactic Acid (0.4 - 1.9 mmol/L) 5.1 *H 12/23 12/23 12/23 12/23 12/23 1310 1244 1155 1118 1054 Chemistry Sodium (134 - 147 mEq/L) 146 Potassium (3.4 - 5.0 mEq/L) 3.5 Chloride (100 - 108 mEq/L) 112 H Carbon Dioxide (21 - 33 mEq/l) 24 Anion Gap (0 - 20) 14 BUN (7 - 18 mg/dL) 15 Creatinine (0.6 - 1.3 mg/dL) 1.1 POC Creatinine (0.8 - 1.3 mg/dL) 0.9 1.1 1.0 0 .9 Glomerular Filtr Rate (80 - 90) 66.8 L Glucose (70 - 110 mg/dL) 154 H POC Glucose (mg/dL) (70 - 110 MG/DL) 149 H 182 H 137 H 140 H Calcium (8.0 - 10.5 mg/dL) 9.0 Magnesium (1.80 - 2.40 mg/dL) 2.61 H 12/23 12/23 12/23 12/23 12/23 1020 0951 0909 0703 0400 Chemistry POC Creatinine (0.8 - 1.3 mg/dL) 1.0 0.9 1.0 1. 1 POC Glucose (mg/dL) (70 - 110 MG/DL) 136 H 135 H 161 H 136 H Hemoglobin A1c (4.8 - 6.0 %A1C) 5.6 12/23 12/23 0400 0400 Chemistry Sodium (134 - 147 mEq/L) 142 Potassium (3.4 - 5.0 mEq/L) 3.1 L Chloride (100 - 108 mEq/L) 107 Carbon Dioxide (21 - 33 mEq/l) 27 Anion Gap (0 - 20) 11 BUN (7 - 18 mg/dL) 15 Creatinine (0.6 - 1.3 mg/dL) 1.0 Glomerular Filtr Rate (80 - 90) 74.5 L Glucose (70 - 110 mg/dL) 112 H Calcium (8.0 - 10.5 mg/dL) 9.4 Total Bilirubin (0.0 - 1.0 mg/dL) 0.50 AST (15 - 37 IUnit/L) 17 ALT (30 - 65 IUnit/L) 16 L Total Alk Phosphatase (20 - 125 IUnit/L) 59 B-Natriuretic Peptide (0 - 100 PG/ML) 35.0 Total Protein (6.4 - 8.2 g/dL) 6.8 Albumin (3.4 - 5.0 g/dL) 3.80 Triglycerides (40 - 150 mg/dL) 117 Cholesterol (<200 mg/dL) 141 LDL Cholesterol Measurd (0 - 100 mg/dL) 96.7 HDL Cholesterol (32 - 72 mg/dL) 33.0 Cholesterol/HDL Ratio (3.43 - 4.97 RATIO) 4.27 Laboratory Tests 12/23 12/23 12/23 12/23 12/23 1157 1156 1120 1056 1022 Coagulation INR (0.8 - 1.2) 1.4 H PTT (Tom) (25.0 - 39.5 Seconds) 28.2 PT Patient/Control Mix (9.3 - 12.9 15.6 H SECONDS) Activated Coag Time (74 - 137 SEC) 109 500 H 54 3 H 670 H 12/23 12/23 12/23 12/23 12/23 0953 0927 0926 0706 0400 Coagulation INR (0.8 - 1.2) 1.1 PTT (Tom) (25.0 - 39.5 Seconds) 30.1 PT Patient/Control Mix (9.3 - 12.9 SECONDS) 12. 1 Activated Coag Time (74 - 137 SEC) 654 H 626 H 626 H 120 Laboratory Tests 12/23 12/23 12/23 1310 1156 0400 Hematology WBC (4.5 - 11.0 x10 3/uL) 16.4 H 17.0 H 6.1 RBC (4.00 - 5.60 x10 6/uL) 3.84 L 3.46 L 4.68 Hgb (12.5 - 16.9 g/dL) 11.1 L 10.0 L 13.0 Hct (37.5 - 50.7 %) 34.7 L 31.2 L 41.6 MCV (81.0 - 99.0 fL) 90.4 90.2 88.9 MCH (27.0 - 33.0 pg) 28.9 28.9 27.8 MCHC (33.0 - 37.0 g/dL) 32.0 L 32.1 L 31.3 L RDW (11.5 - 14.5 %) 15.4 H 15.3 H 15.2 H Plt Count (150 - 400 x10 3/uL) 211 208 237 MPV (7.0 - 9.0 fL) 10.5 H 10.6 H 10.7 H Neut % (Auto) (56.0 - 77.0 %) 77.0 70.6 49.3 L Lymph % (Auto) (14.0 - 32.0 %) 19.4 25.2 39.9 H [place] % (Auto) (4.8 - 9.0 %) 2.2 L 2.6 L 7.7 Eos % (Auto) (0.3 - 3.7 %) 0.2 L 0.2 L 2.1 Baso % (Auto) (0.0 - 2.0 %) 0.3 0.4 0.7 Neut # (Auto) (2.0 - 7.6 x10 3/uL) 12.58 H 12.0 0 H 2.99 Lymph # (Auto) (1.0 - 3.8 x10 3/uL) 3.18 4.28 H 2.42 [place] # (Auto) (0.1 - 0.8 x10 3/uL) 0.36 0.45 0. 47 Eos # (Auto) (0.0 - 0.2 x10 3/uL) 0.04 0.04 0.1 3 Baso # (Auto) (0.0 - 0.2 x10 3/uL) 0.05 0.06 0. 04 Abs Immat Gran (auto) (0.00 - 0.03 x10 3/uL) 0. 15 H 0.17 H 0.02 Add Manual Diff NO NO NO Immature Gran % (0.0 - 2.0 %) 0.9 1.0 0.3 Nucleated RBC % (0 - 0 %) 0.0 0.0 0.0 Nucleated RBCs # (Man) (0.0 - 0.1 x10 3/uL) 0.0 0 0.00 0.00 Radiology data: Recent Impressions: RADIOLOGY - XR CHEST 1 V 12/23 1337 Report Impression - Status: SIGNED Entered: 12/23/2020 1427 IMPRESSION: 1. Postoperative chest with diminished lung volu mes, indistinct perihilar opacities and left basilar pleural-par enchymal disease. Indistinct appearance of the postoperative cardi ac silhouette. SL: [id number] Impression By: Oma Torres M.D. 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 Patient und erwent the procedure well but needing coronary artery bypass graft due to mult iple vessel disease. 1. Status post left heart cath revealing multive ssel coronary artery disease 2. Chest pain/dyspnea on exertion 3. Hypertension 4. Diabetes mellitus type 2 5. Dyslipidemia statin 6. Morbid obesity 12/23/2020: Status post CABG x4 Patient postop Is awake complaining of pain Chest tubes x2 Duran catheter to bedside drainage No pressors Patient currently on insulin drip Plan of care: Keep patient on telemetry Continue to monitor closely Glycemic control patient insulin drip now DVT prophylaxis Lovenox am Continue with current medications Repeat labs Pain control Continue with PT/OT Plan of care discussed with the patient, patient 's nurse, and Dr. Underwood. Electronically Signed by Junie Yu NP on 0 12/25/20 at 0734 RPT #:[id number] END OF REPORT 2020-12-24 01:42:00-00:00 [facility] Internal Medicine Prog. Note REPORT#:[id number] REPORT STATUS: Signed DATE:12/24/20 TIME: 141 PATIENT: SONYA MINAYA UNIT #: [id number] ROOM/BED: [place] [address] : 53 AGE: 65 SEX: M ATTEND: Jae Jaffe MD ADM AUTHOR: Junie Yu MEDICINE ASSISTANT * ALL edits or amendments must be made on the [employer] document * Junie Yu 12/24/20 0142: Subjective Chief Complaint: Visit coronary artery disease Status post CABG x4 Free Text Subj Notes Free Text Subj Notes: Constitutional: Denies: chills, fever. ENT: Reports: sore throat. Denies: earache, nasal con gestion. Respiratory: Reports: FREMEAN (dyspnea on exe rtion). Denies: hemoptysis, parox nocturnal dyspnea , pleurisy, pleuritic pain, pneumonia, SOB, whee zing. Cardiovascular: Reports: chest pain. Denies: palpitations. GI: Denies: abdominal pain, nausea, vomiting. : Reports: other. Musculoskeletal: Reports: extremity pain, extremity swelling. Den ies: joint pain, lumbar pain, neck pain. Neuro: Denies: focal weakness, headache, slurred speech . Psych: Denies: agitation, anxiety, auditory hallucinati on, change in mental status, confusion, delusional, depre ssion, homicidal ideation, hostile, insomnia, stress , suicidal ideation, visual hallucination. Objective General VS/I O: Vital Signs Date Temp Pulse Resp B/P B/P Mean Pulse Ox FiO2 36.2-38.2 59-98 8-47 82-139/21-89 52-104 81-99 40-100 Last Documented: Result Date Time B/P B/ Pulse Tem Pu Re O2 Delivery Nasal cannula 12/24 2147 O2 Flow Rate 2 12/24 2147 FiO2 40 12/23 1440 24 hour I O ending at 0700: 12/23 1900 Intake Total 1727.00 Output Total 604 Balance 1123.00 Intake, IV 1337.00 Intake, Oral 390 Output, Chest 164 Tube Drainage Output, Urine 440 PATIENT WEIGHT: Weight (lb): 287 Weight (oz): 14.78 Weight (kg): 130.600 Results Findings/Data: Laboratory Tests 12/23/20 2106: [Embedded Image Not Available] 12/23/20 1310: [Embedded Image Not Available] 12/23/20 1156: [Embedded Image Not Available] 12/23/20 0400: [Embedded Image Not Available] Laboratory Tests 12/23 12/23 12/23 12/23 1435 1310 1244 1155 Blood Gas Puncture Site Art Line Art Line O2 Saturation (90 - 100 %) 91.5 82.7 L 99.7 95. 7 ABG pH (7.35 - 7.45) 7.345 L 7.308 L 7.355 7.36 5 ABG pCO2 (35.0 - 45 mmHg) 41.9 39.4 39.7 41.6 ABG pO2 (80 - 100.0 mmHg) 65.8 L 51.5 L 195.8 H 82.6 ABG PO2/FiO2 Ratio (mm/Hg) 131.60 57.22 ABG HCO3 (22.0 - 26.0 MMOL/L) 22.9 19.7 L 22.2 23.8 ABG Total CO2 24.2 20.9 23.4 25.1 ABG Base Excess (-4.0 - 4.0 MMOL/L) -2.8 -6.6 L -3.1 -1.5 ABG Hematocrit (37.5 - 50.7 %) 35 L 26 L 31 L 30 L ABG Hemoglobin (12.5 - 16.9 G/DL) 11.8 L 8.8 L 10.7 L 10.0 L Sodium (134 - 147 MEQ/L) 146 147 143 142 Potassium (3.4 - 5.0 MEQ/L) 3.5 2.7 *L 3.6 2.9 L Chloride (100 - 108 MEQ/L) 107 113 H 109 H 107 Ionized Calcium (1.12 - 1.32 MMOL/L) 1.22 1.11 L 1.25 1.12 Lactic Acid (0.9 - 1.7 mmol/l) 7.1 *H 4.2 *H 3. 7 H 3.0 H O2 Delivery Device Adult Vent Adult Vent Vent Mode CPAP/PS CPAP/PS Vent Rate (/MIN) 24 FiO2 (%) 50 90 Tidal Volume (ml) 740 PEEP (cmH2O) 5 5 Pressure Support (cmH2O) 5 5 12/23 12/23 12/23 12/23 1118 1054 1020 0951 Blood Gas O2 Saturation (90 - 100 %) 100.0 100.0 99.9 99. 9 ABG pH (7.35 - 7.45) 7.398 7.422 7.421 7.419 ABG pCO2 (35.0 - 45 mmHg) 41.5 40.1 39.2 40.7 ABG pO2 (80 - 100.0 mmHg) 490.4 *H 371.9 *H 252 .2 *H 320.1 *H ABG HCO3 (22.0 - 26.0 MMOL/L) 25.6 26.1 H 25.5 26.4 H ABG Total CO2 26.8 27.3 26.7 27.6 ABG Base Excess (-4.0 - 4.0 MMOL/L) 0.6 1.5 1.0 1.7 ABG Hematocrit (37.5 - 50.7 %) 29 L 29 L 29 L 3 0 L ABG Hemoglobin (12.5 - 16.9 G/DL) 9.9 L 9.9 L 9 .9 L 10.3 L Sodium (134 - 147 MEQ/L) 140 140 139 139 Potassium (3.4 - 5.0 MEQ/L) 4.1 4.4 4.1 4.2 Chloride (100 - 108 MEQ/L) 106 105 105 104 Ionized Calcium (1.12 - 1.32 MMOL/L) 1.10 L 1.0 8 L 1.06 L 1.03 L Lactic Acid (0.9 - 1.7 mmol/l) 2.0 H 1.8 H 1.0 1.1 12/23 12/23 0909 0703 Blood Gas O2 Saturation (90 - 100 %) 99.6 96.0 ABG pH (7.35 - 7.45) 7.390 7.396 ABG pCO2 (35.0 - 45 mmHg) 41.0 45.2 H ABG pO2 (80 - 100.0 mmHg) 178.3 H 83.0 ABG HCO3 (22.0 - 26.0 MMOL/L) 24.8 27.8 H ABG Total CO2 26.1 29.2 ABG Base Excess (-4.0 - 4.0 MMOL/L) -0.2 2.3 ABG Hematocrit (37.5 - 50.7 %) 39 40 ABG Hemoglobin (12.5 - 16.9 G/DL) 13.1 13.7 Sodium (134 - 147 MEQ/L) 141 141 Potassium (3.4 - 5.0 MEQ/L) 3.6 3.5 Chloride (100 - 108 MEQ/L) 106 105 Ionized Calcium (1.12 - 1.32 MMOL/L) 1.15 1.19 Lactic Acid (0.9 - 1.7 mmol/l) 0.9 1.5 Laboratory Tests 12/24 12/23 12/23 12/23 12/23 0001 2159 2106 2106 1948 Chemistry Potassium (3.4 - 5.0 mEq/L) 4.4 POC Glucose (70 - 110 MG/DL) 145 H 131 H 174 H Lactic Acid (0.4 - 1.9 mmol/L) 1.9 12/23 12/23 12/23 12/23 12/23 1807 1706 1557 1510 1453 Chemistry POC Glucose (70 - 110 MG/DL) 183 H 174 H 164 H Lactic Acid (0.4 - 1.9 mmol/L) 5.6 *H 6.4 *H 12/23 12/23 12/23 12/23 12/23 1435 1412 1310 1310 1310 Chemistry POC Creatinine (0.8 - 1.3 mg/dL) 1.2 0.9 POC Glucose (70 - 110 MG/DL) 147 H 135 H POC Glucose (mg/dL) (70 - 110 MG/DL) 174 H 122 H Lactic Acid (0.4 - 1.9 mmol/L) 5.1 *H 12/23 12/23 12/23 12/23 12/23 1310 1244 1155 1118 1054 Chemistry Sodium (134 - 147 mEq/L) 146 Potassium (3.4 - 5.0 mEq/L) 3.5 Chloride (100 - 108 mEq/L) 112 H Carbon Dioxide (21 - 33 mEq/l) 24 Anion Gap (0 - 20) 14 BUN (7 - 18 mg/dL) 15 Creatinine (0.6 - 1.3 mg/dL) 1.1 POC Creatinine (0.8 - 1.3 mg/dL) 0.9 1.1 1.0 0 .9 Glomerular Filtr Rate (80 - 90) 66.8 L Glucose (70 - 110 mg/dL) 154 H POC Glucose (mg/dL) (70 - 110 MG/DL) 149 H 182 H 137 H 140 H Calcium (8.0 - 10.5 mg/dL) 9.0 Magnesium (1.80 - 2.40 mg/dL) 2.61 H 12/23 12/23 12/23 12/23 12/23 1020 0951 0909 0703 0400 Chemistry POC Creatinine (0.8 - 1.3 mg/dL) 1.0 0.9 1.0 1. 1 POC Glucose (mg/dL) (70 - 110 MG/DL) 136 H 135 H 161 H 136 H Hemoglobin A1c (4.8 - 6.0 %A1C) 5.6 12/23 12/23 0400 0400 Chemistry Sodium (134 - 147 mEq/L) 142 Potassium (3.4 - 5.0 mEq/L) 3.1 L Chloride (100 - 108 mEq/L) 107 Carbon Dioxide (21 - 33 mEq/l) 27 Anion Gap (0 - 20) 11 BUN (7 - 18 mg/dL) 15 Creatinine (0.6 - 1.3 mg/dL) 1.0 Glomerular Filtr Rate (80 - 90) 74.5 L Glucose (70 - 110 mg/dL) 112 H Calcium (8.0 - 10.5 mg/dL) 9.4 Total Bilirubin (0.0 - 1.0 mg/dL) 0.50 AST (15 - 37 IUnit/L) 17 ALT (30 - 65 IUnit/L) 16 L Total Alk Phosphatase (20 - 125 IUnit/L) 59 B-Natriuretic Peptide (0 - 100 PG/ML) 35.0 Total Protein (6.4 - 8.2 g/dL) 6.8 Albumin (3.4 - 5.0 g/dL) 3.80 Triglycerides (40 - 150 mg/dL) 117 Cholesterol (<200 mg/dL) 141 LDL Cholesterol Measurd (0 - 100 mg/dL) 96.7 HDL Cholesterol (32 - 72 mg/dL) 33.0 Cholesterol/HDL Ratio (3.43 - 4.97 RATIO) 4.27 Laboratory Tests 12/23 12/23 12/23 12/23 12/23 1157 1156 1120 1056 1022 Coagulation INR (0.8 - 1.2) 1.4 H PTT ([place]) (25.0 - 39.5 Seconds) 28.2 PT Patient/Control Mix (9.3 - 12.9 15.6 H SECONDS) Activated Coag Time (74 - 137 SEC) 109 500 H 54 3 H 670 H 12/23 12/23 12/23 12/23 12/23 0953 0927 0926 0706 0400 Coagulation INR (0.8 - 1.2) 1.1 PTT ([place]) (25.0 - 39.5 Seconds) 30.1 PT Patient/Control Mix (9.3 - 12.9 SECONDS) 12. 1 Activated Coag Time (74 - 137 SEC) 654 H 626 H 626 H 120 Laboratory Tests 12/23 12/23 12/23 1310 1156 0400 Hematology WBC (4.5 - 11.0 x10 3/uL) 16.4 H 17.0 H 6.1 RBC (4.00 - 5.60 x10 6/uL) 3.84 L 3.46 L 4.68 Hgb (12.5 - 16.9 g/dL) 11.1 L 10.0 L 13.0 Hct (37.5 - 50.7 %) 34.7 L 31.2 L 41.6 MCV (81.0 - 99.0 fL) 90.4 90.2 88.9 MCH (27.0 - 33.0 pg) 28.9 28.9 27.8 MCHC (33.0 - 37.0 g/dL) 32.0 L 32.1 L 31.3 L RDW (11.5 - 14.5 %) 15.4 H 15.3 H 15.2 H Plt Count (150 - 400 x10 3/uL) 211 208 237 MPV (7.0 - 9.0 fL) 10.5 H 10.6 H 10.7 H Neut % (Auto) (56.0 - 77.0 %) 77.0 70.6 49.3 L Lymph % (Auto) (14.0 - 32.0 %) 19.4 25.2 39.9 H [place] % (Auto) (4.8 - 9.0 %) 2.2 L 2.6 L 7.7 Eos % (Auto) (0.3 - 3.7 %) 0.2 L 0.2 L 2.1 Baso % (Auto) (0.0 - 2.0 %) 0.3 0.4 0.7 Neut # (Auto) (2.0 - 7.6 x10 3/uL) 12.58 H 12. 00 H 2.99 Lymph # (Auto) (1.0 - 3.8 x10 3/uL) 3.18 4.28 H 2.42 [place] # (Auto) (0.1 - 0.8 x10 3/uL) 0.36 0.45 0. 47 Eos # (Auto) (0.0 - 0.2 x10 3/uL) 0.04 0.04 0.1 3 Baso # (Auto) (0.0 - 0.2 x10 3/uL) 0.05 0.06 0. 04 Abs Immat Gran (auto) (0.00 - 0.03 x10 3/uL) 0. 15 H 0.17 H 0.02 Add Manual Diff NO NO NO Immature Gran % (0.0 - 2.0 %) 0.9 1.0 0.3 Nucleated RBC % (0 - 0 %) 0.0 0.0 0.0 Nucleated RBCs # (Man) (0.0 - 0.1 x10 3/uL) 0.0 0 0.00 0.00 Radiology data: Recent Impressions: RADIOLOGY - XR CHEST 1 V 12/23 1337 Report Impression - Status: SIGNED Entered: 12/23/2020 2799 IMPRESSION: 1. Postoperative chest with diminished lung volu mes, indistinct perihilar opacities and left basilar pleural-par enchymal disease. Indistinct appearance of the postoperative cardi ac silhouette. SL: [id number] Impression By: Oma Torres M.D. 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 Patient und erwent the procedure well but needing coronary artery bypass graft due to mult iple vessel disease. 1. Status post left heart cath revealing multive ssel coronary artery disease 2. Chest pain/dyspnea on exertion 3. Hypertension 4. Diabetes mellitus type 2 5. Dyslipidemia statin 6. Morbid obesity 12/23/2020: Status post CABG x4 Patient postop Is awake complaining of pain Chest tubes x2 Duran catheter to bedside drainage No pressors Patient currently on insulin drip Plan of care: Keep patient on telemetry Continue to monitor closely Glycemic control patient insulin drip now DVT prophylaxis Lovenox am Continue with current medications Repeat labs Pain control Continue with PT/OT Plan of care discussed with the patient, patient 's nurse, and Dr. Underwood. Jae Underwood 12/28/20 0058: Attestations Physician Attestation Agree w/findings plan: I agree with the findings and plan as documented by DOROTEO Yu. Plan of care coordinated with DOROTEO Yu. Pertinent labs, Imaging, and behavioral consultant evaluations reviewed. 65-year-old male presented for elective left hea rt catheterization. He underwent CABG x4. He is in postop care. He is a wake and is complaining of pain. He has chest tubes x2 and Duran catheter t o bedside, which is drainage. He is on no pressors. He is currently on insulin drip. We will continue with telemetry, glycemic control, DVT prophylaxis with Lovenox, current medications, repeat labs, pain control, and PT/OT. We will continue to monitor him closely. Electronically Signed by Junie Yu NP on 0 12/25/20 at 0734 RPT #:[id number] END OF REPORT 2020-12-24 01:42:00-00:00 [facility]) Internal Medicine Prog. Note REPORT#:[id number] REPORT STATUS: Signed DATE:12/24/20 TIME: 141 PATIENT: SONYA MINAYA UNIT #: [id number] ROOM/BED: 3363-1 : 53 AGE: 65 SEX: M ATTEND: Jae Jaffe MD ADM AUTHOR: Junie Yu MEDICINE ASSISTANT * ALL edits or amendments must be made on the [employer]/computer document * Junie Yu 12/24/20 0142: Subjective Chief Complaint: Visit coronary artery disease Status post CABG x4 Free Text Subj Notes Free Text Subj Notes: Constitutional: Denies: chills, fever. ENT: Reports: sore throat. Denies: earache, nasal con gestion. Respiratory: Reports: FREEMAN (dyspnea on exe rtion). Denies: hemoptysis, parox nocturnal dyspnea , pleurisy, pleuritic pain, pneumonia, SOB, whee zing. Cardiovascular: Reports: chest pain. Denies: palpitations. GI: Denies: abdominal pain, nausea, vomiting. : Reports: other. Musculoskeletal: Reports: extremity pain, extremity swelling. Den ies: joint pain, lumbar pain, neck pain. Neuro: Denies: focal weakness, headache, slurred speech . Psych: Denies: agitation, anxiety, auditory hallucinati on, change in mental status, confusion, delusional, depre ssion, homicidal ideation, hostile, insomnia, stress , suicidal ideation, visual hallucination. Objective General VS/I O: Vital Signs Date Temp Pulse Resp B/P B/P Mean Pulse Ox FiO2 36.2-38.2 59-98 8-47 82-139/21-89 52-104 81-99 40-100 Last Documented: Result Date Time B/P B/ Pulse Tem Pu Re O2 Delivery Nasal cannula 12/24 2147 O2 Flow Rate 2 12/24 2147 FiO2 40 12/23 1440 24 hour I O ending at 0700: 12/23 1900 Intake Total 1727.00 Output Total 604 Balance 1123.00 Intake, IV 1337.00 Intake, Oral 390 Output, Chest 164 Tube Drainage Output, Urine 440 PATIENT WEIGHT: Weight (lb): 287 Weight (oz): 14.78 Weight (kg): 130.600 Results Findings/Data: Laboratory Tests 12/23/20 2106: [Embedded Image Not Available] 12/23/20 1310: [Embedded Image Not Available] 12/23/20 1156: [Embedded Image Not Available] 12/23/20 0400: [Embedded Image Not Available] Laboratory Tests 12/23 12/23 12/23 12/23 1435 1310 1244 1155 Blood Gas Puncture Site Art Line Art Line O2 Saturation (90 - 100 %) 91.5 82.7 L 99.7 95. 7 ABG pH (7.35 - 7.45) 7.345 L 7.308 L 7.355 7.36 5 ABG pCO2 (35.0 - 45 mmHg) 41.9 39.4 39.7 41.6 ABG pO2 (80 - 100.0 mmHg) 65.8 L 51.5 L 195.8 H 82.6 ABG PO2/FiO2 Ratio (mm/Hg) 131.60 57.22 ABG HCO3 (22.0 - 26.0 MMOL/L) 22.9 19.7 L 22.2 23.8 ABG Total CO2 24.2 20.9 23.4 25.1 ABG Base Excess (-4.0 - 4.0 MMOL/L) -2.8 -6.6 L -3.1 -1.5 ABG Hematocrit (37.5 - 50.7 %) 35 L 26 L 31 L 30 L ABG Hemoglobin (12.5 - 16.9 G/DL) 11.8 L 8.8 L 10.7 L 10.0 L Sodium (134 - 147 MEQ/L) 146 147 143 142 Potassium (3.4 - 5.0 MEQ/L) 3.5 2.7 *L 3.6 2.9 L Chloride (100 - 108 MEQ/L) 107 113 H 109 H 107 Ionized Calcium (1.12 - 1.32 MMOL/L) 1.22 1.11 L 1.25 1.12 Lactic Acid (0.9 - 1.7 mmol/l) 7.1 *H 4.2 *H 3. 7 H 3.0 H O2 Delivery Device Adult Vent Adult Vent Vent Mode CPAP/PS CPAP/PS Vent Rate (/MIN) 24 FiO2 (%) 50 90 Tidal Volume (ml) 740 PEEP (cmH2O) 5 5 Pressure Support (cmH2O) 5 5 12/23 12/23 12/23 12/23 1118 1054 1020 0951 Blood Gas O2 Saturation (90 - 100 %) 100.0 100.0 99.9 99. 9 ABG pH (7.35 - 7.45) 7.398 7.422 7.421 7.419 ABG pCO2 (35.0 - 45 mmHg) 41.5 40.1 39.2 40.7 ABG pO2 (80 - 100.0 mmHg) 490.4 *H 371.9 *H 252 .2 *H 320.1 *H ABG HCO3 (22.0 - 26.0 MMOL/L) 25.6 26.1 H 25.5 26.4 H ABG Total CO2 26.8 27.3 26.7 27.6 ABG Base Excess (-4.0 - 4.0 MMOL/L) 0.6 1.5 1.0 1.7 ABG Hematocrit (37.5 - 50.7 %) 29 L 29 L 29 L 3 0 L ABG Hemoglobin (12.5 - 16.9 G/DL) 9.9 L 9.9 L 9 .9 L 10.3 L Sodium (134 - 147 MEQ/L) 140 140 139 139 Potassium (3.4 - 5.0 MEQ/L) 4.1 4.4 4.1 4.2 Chloride (100 - 108 MEQ/L) 106 105 105 104 Ionized Calcium (1.12 - 1.32 MMOL/L) 1.10 L 1.0 8 L 1.06 L 1.03 L Lactic Acid (0.9 - 1.7 mmol/l) 2.0 H 1.8 H 1.0 1.1 12/23 12/23 0909 0703 Blood Gas O2 Saturation (90 - 100 %) 99.6 96.0 ABG pH (7.35 - 7.45) 7.390 7.396 ABG pCO2 (35.0 - 45 mmHg) 41.0 45.2 H ABG pO2 (80 - 100.0 mmHg) 178.3 H 83.0 ABG HCO3 (22.0 - 26.0 MMOL/L) 24.8 27.8 H ABG Total CO2 26.1 29.2 ABG Base Excess (-4.0 - 4.0 MMOL/L) -0.2 2.3 ABG Hematocrit (37.5 - 50.7 %) 39 40 ABG Hemoglobin (12.5 - 16.9 G/DL) 13.1 13.7 Sodium (134 - 147 MEQ/L) 141 141 Potassium (3.4 - 5.0 MEQ/L) 3.6 3.5 Chloride (100 - 108 MEQ/L) 106 105 Ionized Calcium (1.12 - 1.32 MMOL/L) 1.15 1.19 Lactic Acid (0.9 - 1.7 mmol/l) 0.9 1.5 Laboratory Tests 12/24 12/23 12/23 12/23 12/23 0001 2159 2106 2106 1948 Chemistry Potassium (3.4 - 5.0 mEq/L) 4.4 POC Glucose (70 - 110 MG/DL) 145 H 131 H 174 H Lactic Acid (0.4 - 1.9 mmol/L) 1.9 12/23 12/23 12/23 12/23 12/23 1807 1706 1557 1510 1453 Chemistry POC Glucose (70 - 110 MG/DL) 183 H 174 H 164 H Lactic Acid (0.4 - 1.9 mmol/L) 5.6 *H 6.4 *H 12/23 12/23 12/23 12/23 12/23 1435 1412 1310 1310 1310 Chemistry POC Creatinine (0.8 - 1.3 mg/dL) 1.2 0.9 POC Glucose (70 - 110 MG/DL) 147 H 135 H POC Glucose (mg/dL) (70 - 110 MG/DL) 174 H 122 H Lactic Acid (0.4 - 1.9 mmol/L) 5.1 *H 12/23 12/23 12/23 12/23 12/23 1310 1244 1155 1118 1054 Chemistry Sodium (134 - 147 mEq/L) 146 Potassium (3.4 - 5.0 mEq/L) 3.5 Chloride (100 - 108 mEq/L) 112 H Carbon Dioxide (21 - 33 mEq/l) 24 Anion Gap (0 - 20) 14 BUN (7 - 18 mg/dL) 15 Creatinine (0.6 - 1.3 mg/dL) 1.1 POC Creatinine (0.8 - 1.3 mg/dL) 0.9 1.1 1.0 0 .9 Glomerular Filtr Rate (80 - 90) 66.8 L Glucose (70 - 110 mg/dL) 154 H POC Glucose (mg/dL) (70 - 110 MG/DL) 149 H 182 H 137 H 140 H Calcium (8.0 - 10.5 mg/dL) 9.0 Magnesium (1.80 - 2.40 mg/dL) 2.61 H 12/23 12/23 12/23 12/23 12/23 1020 0951 0909 0703 0400 Chemistry POC Creatinine (0.8 - 1.3 mg/dL) 1.0 0.9 1.0 1. 1 POC Glucose (mg/dL) (70 - 110 MG/DL) 136 H 135 H 161 H 136 H Hemoglobin A1c (4.8 - 6.0 %A1C) 5.6 12/23 12/23 0400 0400 Chemistry Sodium (134 - 147 mEq/L) 142 Potassium (3.4 - 5.0 mEq/L) 3.1 L Chloride (100 - 108 mEq/L) 107 Carbon Dioxide (21 - 33 mEq/l) 27 Anion Gap (0 - 20) 11 BUN (7 - 18 mg/dL) 15 Creatinine (0.6 - 1.3 mg/dL) 1.0 Glomerular Filtr Rate (80 - 90) 74.5 L Glucose (70 - 110 mg/dL) 112 H Calcium (8.0 - 10.5 mg/dL) 9.4 Total Bilirubin (0.0 - 1.0 mg/dL) 0.50 AST (15 - 37 IUnit/L) 17 ALT (30 - 65 IUnit/L) 16 L Total Alk Phosphatase (20 - 125 IUnit/L) 59 B-Natriuretic Peptide (0 - 100 PG/ML) 35.0 Total Protein (6.4 - 8.2 g/dL) 6.8 Albumin (3.4 - 5.0 g/dL) 3.80 Triglycerides (40 - 150 mg/dL) 117 Cholesterol (<200 mg/dL) 141 LDL Cholesterol [place] (0 - 100 mg/dL) 96.7 HDL Cholesterol (32 - 72 mg/dL) 33.0 Cholesterol/HDL Ratio (3.43 - 4.97 RATIO) 4.27 Laboratory Tests 12/23 12/23 12/23 12/23 12/23 1157 1156 1120 1056 1022 Coagulation INR (0.8 - 1.2) 1.4 H PTT (Tom) (25.0 - 39.5 Seconds) 28.2 PT Patient/Control Mix (9.3 - 12.9 15.6 H SECONDS) Activated Coag Time (74 - 137 SEC) 109 500 H 54 3 H 670 H 12/23 12/23 12/23 12/23 12/23 0953 0927 0926 0706 0400 Coagulation INR (0.8 - 1.2) 1.1 PTT ([place]) (25.0 - 39.5 Seconds) 30.1 PT Patient/Control Mix (9.3 - 12.9 SECONDS) 12. 1 Activated Coag Time (74 - 137 SEC) 654 H 626 H 626 H 120 Laboratory Tests 12/23 12/23 12/23 1310 1156 0400 Hematology WBC (4.5 - 11.0 x10 3/uL) 16.4 H 17.0 H 6.1 RBC (4.00 - 5.60 x10 6/uL) 3.84 L 3.46 L 4.68 Hgb (12.5 - 16.9 g/dL) 11.1 L 10.0 L 13.0 Hct (37.5 - 50.7 %) 34.7 L 31.2 L 41.6 MCV (81.0 - 99.0 fL) 90.4 90.2 88.9 MCH (27.0 - 33.0 pg) 28.9 28.9 27.8 MCHC (33.0 - 37.0 g/dL) 32.0 L 32.1 L 31.3 L RDW (11.5 - 14.5 %) 15.4 H 15.3 H 15.2 H Plt Count (150 - 400 x10 3/uL) 211 208 237 MPV (7.0 - 9.0 fL) 10.5 H 10.6 H 10.7 H Neut % (Auto) (56.0 - 77.0 %) 77.0 70.6 49.3 L Lymph % (Auto) (14.0 - 32.0 %) 19.4 25.2 39.9 H [place] % (Auto) (4.8 - 9.0 %) 2.2 L 2.6 L 7.7 Eos % (Auto) (0.3 - 3.7 %) 0.2 L 0.2 L 2.1 Baso % (Auto) (0.0 - 2.0 %) 0.3 0.4 0.7 Neut # (Auto) (2.0 - 7.6 x10 3/uL) 12.58 H 12.0 0 H 2.99 Lymph # (Auto) (1.0 - 3.8 x10 3/uL) 3.18 4.28 H 2.42 [place] # (Auto) (0.1 - 0.8 x10 3/uL) 0.36 0.45 0. 47 Eos # (Auto) (0.0 - 0.2 x10 3/uL) 0.04 0.04 0.1 3 Baso # (Auto) (0.0 - 0.2 x10 3/uL) 0.05 0.06 0. 04 Abs Immat Gran (auto) (0.00 - 0.03 x10 3/uL) 0. 15 H 0.17 H 0.02 Add Manual Diff NO NO NO Immature Gran % (0.0 - 2.0 %) 0.9 1.0 0.3 Nucleated RBC % (0 - 0 %) 0.0 0.0 0.0 Nucleated RBCs # (Man) (0.0 - 0.1 x10 3/uL) 0.0 0 0.00 0.00 Radiology data: Recent Impressions: RADIOLOGY - XR CHEST 1 V 12/23 1337 Report Impression - Status: SIGNED Entered: 12/23/2020 0767 IMPRESSION: 1. Postoperative chest with diminished lung volu mes, indistinct perihilar opacities and left basilar pleural-par enchymal disease. Indistinct appearance of the postoperative cardi ac silhouette. SL: [id number] Impression By: Oma Torres M.D. 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 Patient und erwent the procedure well but needing coronary artery bypass graft due to mult iple vessel disease. 1. Status post left heart cath revealing multive ssel coronary artery disease 2. Chest pain/dyspnea on exertion 3. Hypertension 4. Diabetes mellitus type 2 5. Dyslipidemia statin 6. Morbid obesity 12/23/2020: Status post CABG x4 Patient postop Is awake complaining of pain Chest tubes x2 Duran catheter to bedside drainage No pressors Patient currently on insulin drip Plan of care: Keep patient on telemetry Continue to monitor closely Glycemic control patient insulin drip now DVT prophylaxis Lovenox am Continue with current medications Repeat labs Pain control Continue with PT/OT Plan of care discussed with the patient, patient 's nurse, and Dr. Underwood. Jae Underwood 12/28/20 0058: Attestations Physician Attestation Agree w/findings plan: I agree with the findings and plan as documented by DOROTEO Yu. Plan of care coordinated with DOROTEO Yu. Pertinent labs, Imaging, and behavioral consultant evaluations reviewed. 65-year-old male presented for elective left hea rt catheterization. He underwent CABG x4. He is in postop care. He is a wake and is complaining of pain. He has chest tubes x2 and Duran catheter t o bedside, which is drainage. He is on no pressors. He is currently on insulin drip. We will continue with telemetry, glycemic control, DVT prophylaxis with Lovenox, current medications, repeat labs, pain control, and PT/OT. We will continue to monitor him closely. Electronically Signed by Junie Yu NP on 0 12/25/20 at 0734 Electronically Signed by Jae aJffe MD 12/28/20 at 0737 RPT #:[id number] END OF REPORT 2020-12-23 14:30:00-00:00 [facility] ([facility] Cardiology Progress Note REPORT#:[id number] REPORT STATUS: Signed DATE:12/23/20 TIME: 1430 PATIENT: SONYA MINAYA UNIT #: [id number] ROOM/BED: 2204-1 : 53 AGE: 65 SEX: M ATTEND: Jae Jaffe MD ADM AUTHOR: Ian Coronel MD * ALL edits or amendments must be made on the [employer]/computer document * Subjective Chief Complaint: GOING FOR CABG Objective General VS/I O: 24 hour I O ending at 0700: 12/23 0700 12/22 1900 Intake Total 240 Output Total 150 Balance 90 Intake, Oral 240 Output, Urine 150 Patient 130.6 kg 136.364 kg Weight Weight Bed scale Stated/Reported Measurement Method Vital Signs: Date Time Temp Pulse Resp B/P B/P Pulse O2 O2 F low FiO2 Mean Ox Delivery Rate 12/23 1400 50 12/23 1346 89/52 60 12/23 1345 97.5 72 27 90/48 60 84 04 1330 Ventilator 60 12/23 1330 139/21 66 12/23 1330 97.3 76 109/59 77 81 04 1315 97.2 84 8 124/62 80 86 12/23 1310 102/43 59 04 1310 97.3 83 16 89/51 63 87 12/23 1309 77 92 100 04/ 1307 90/35 52 04 1307 97.2 87 17 87/48 62 89 04/ 0200 98.5 Room air 12/23 0200 59 13 122/70 92 90 04/ 0110 61 24 131/77 96 12/22 2308 98.2 62 18 138/77 97.4 97 Room air 12/22 1924 97.9 79 20 118/66 83.1 96 Room air 12/22 1549 99.3 62 17 142/77 98.6 96 Room air PATIENT WEIGHT: Weight (lb): 287 Weight (oz): 14.78 Weight (kg): 130.600 Medications: Active Meds + DC'd Last 24 Hrs Cyanocobalamin 500 MCG DAILY PO Ferrous Sulfate 325 MG DAILY PO Bisacodyl 10 MG ONCE PRN RECTAL Magnesium Hydroxide 30 ML ONCE PRN PO Atorvastatin Calcium 40 MG 2100 PO Clopidogrel Bisulfate 75 MG DAILY PO Polyethylene Glycol 17 GM DAILY PO Docusate Sodium 100 MG BID PO Metoprolol Tartrate 12.5 MG Q12HR PO Senna 2 TAB BEDTIME PO (CKD) Amiodarone HCl 200 MG TID PO Fentanyl Citrate 25 MCG NOW ONE IV (DC) Cefazolin Sodium 3 GM ONCE ONE IV Sodium Chloride 250 ML Mupirocin 1 APPLIC BID NASAL Potassium Chloride 100 ML .STK-MED ONE IV (DC) Sodium Bicarbonate 0 .STK-MED ONE IV (DC) Parenteral Electrolytes 1,000 ML .STK-MED ONE IV (DC) Potassium Chloride 100 ML .STK-MED ONE IV (DC) Acetaminophen 650 MG Q4H PRN PRN PO Acetaminophen 650 MG Q4H PRN PRN RECTAL Albumin Human 25 GM ASDIR PRN IV Calcium Chloride 1 GM ASDIR PRN IV Chlorhexidine Gluconate 15 ML Q2H MM (CKD) Dextrose/Water 25 ML ASDIR PRN IV (CKD) Dextrose/Water 50 ML ASDIR PRN IV (CKD) Epinephrine 5 MG ASDIR IV Dextrose/Water 245 ML Glucagon 1 MG ASDIR PRN IM Insulin Human Regular 100 UNIT ASDIR IV (CKD) Sodium Chloride 99 ML Magnesium Sulfate 100 ML ASDIR PRN IV Magnesium Sulfate 50 ML ASDIR PRN IV Magnesium Sulfate/Dextrose 100 ML ASDIR PRN IV Morphine Sulfate 4 MG Q2H PRN PRN IV Nitroglycerin/Dextrose 250 ML ASDIR IV Norepinephrine Bitartrate 250 ML TITRATE IV Ondansetron HCl 4 MG Q6H PRN PRN IV Oxycodone HCl 5 MG Q4H PRN PRN PO Oxycodone HCl 10 MG Q4H PRN PRN PO Potassium Chloride 100 ML ASDIR PRN IV Sodium Bicarbonate 50 MEQ ASDIR PRN IV Sodium Chloride 1,000 ML .Q20H IV Sodium Chloride 250 ML Q24H IV Cefazolin Sodium 0 .STK-MED ONE .ROUTE (DC) Sodium Chloride 100 ML .STK-MED ONE IV (DC) Glycopyrrolate 0 .STK-MED ONE .ROUTE (DC) Metoclopramide HCl 0 .STK-MED ONE .ROUTE (DC) Neostigmine Methylsulfate 0 .STK-MED ONE .ROUTE (DC) Ondansetron HCl 0 .STK-MED ONE .ROUTE (DC) Sevoflurane 0 .STK-MED ONE INH (DC) Amlodipine Besylate 5 MG DAILY PO (DC) Hydrochlorothiazide 25 MG DAILY PO (DC) Losartan Potassium 100 MG DAILY PO (DC) Hydrochlorothiazide 25 MG Losartan Potassium 100 MG DAILY PO (DC) Metoprolol Succinate 100 MG DAILY PO (DC) Paroxetine HCl 40 MG DAILY PO Rocuronium Bronte 0 .STK-MED ONE IV (DC) Heparin Sodium 0 .STK-MED ONE .ROUTE (DC) Albumin Human 100 ML .STK-MED ONE IV (DC) Heparin Sodium 0 .STK-MED ONE .ROUTE (DC) Sodium Chloride 100 ML .STK-MED ONE IV (DC) Lidocaine HCl 0 .STK-MED ONE IV (DC) Magnesium Sulfate 0 .STK-MED ONE IV (DC) Mannitol 0 .STK-MED ONE IV (DC) Phenylephrine HCl 0 .STK-MED ONE .ROUTE (DC) Sodium Bicarbonate 0 .STK-MED ONE IV (DC) Fentanyl Citrate 0 .STK-MED ONE IV (DC) Midazolam HCl 0 .STK-MED ONE .ROUTE (DC) Propofol 20 ML .STK-MED ONE IV (DC) Fentanyl Citrate 0 .STK-MED ONE .ROUTE (DC) Dexamethasone Sodium Phosphate 0 .STK-MED ONE .R OUTE (DC) Esmolol HCl 0 .STK-MED ONE IV (DC) Lidocaine HCl 0 .STK-MED ONE .ROUTE (DC) Lidocaine HCl 0 .STK-MED ONE .ROUTE (DC) Lidocaine HCl 0 .STK-MED ONE .ROUTE (DC) Midazolam HCl 0 .STK-MED ONE .ROUTE (DC) Ondansetron HCl 0 .STK-MED ONE .ROUTE (DC) Rocuronium Bronte 0 .STK-MED ONE IV (DC) Sodium Chloride 250 ML .STK-MED ONE IV (DC) Pantoprazole 40 MG DAILY@0600 PO Sodium Chloride 250 ML .STK-MED ONE IV (DC) Vancomycin HCl 0 .STK-MED ONE .ROUTE (DC) Papaverine HCl 0 .STK-MED ONE IV (DC) Phenylephrine HCl 250 ML .STK-MED ONE IV (DC) Epinephrine/Dextrose 250 ML .STK-MED ONE IV (DC) Insulin Human Regular 100 ML .STK-MED ONE IV (DC ) Norepinephrine Bitartrate 250 ML .STK-MED ONE IV (DC) Aminocaproic Acid 0 .STK-MED ONE IV (DC) Famotidine 0 .STK-MED ONE IV (DC) Heparin Sodium 0 .STK-MED ONE .ROUTE (DC) Nitroglycerin/Dextrose 250 ML .STK-MED ONE IV (D C) Sodium Chloride 100 ML .STK-MED ONE IV (DC) Calcium Chloride 0 .STK-MED ONE IV (DC) Cefazolin Sodium 0 .STK-MED ONE .ROUTE (DC) Magnesium Sulfate 0 .STK-MED ONE IV (DC) Potassium Chloride 100 ML .STK-MED ONE IV (DC) Protamine Sulfate 0 .STK-MED ONE IV (DC) Potassium Chloride 40 MEQ ONCE ONE PO (DC) Cefazolin Sodium 3 GM PREOP ONCALL IV (DC) Sodium Chloride 250 ML Metoprolol Tartrate 6.25 MG ONCE ONE PO (DC) Vancomycin HCl 2,045.46 MG PREOP ONCALL IV (CAN) Sodium Chloride 250 ML Vancomycin HCl 2,000 MG PREOP IV (DC) Sodium Chloride 500 ML Verapamil HCl 16.6 MG .Q24H ONE IV (DC) Heparin Sodium (Porcine) 1,660 UNIT Sodium Bicarbonate 0.7 ML Nitroglycerin/Dextrose 8.3 MG Lactated Ringer's 949.5 ML Mupirocin 1 APPLIC BID NASAL (DC) Gemfibrozil 600 MG BID PO (DC) Atropine Sulfate 0.5 MG ASDIR PRN IV (DC) Ondansetron HCl 4 MG Q4H PRN PRN IV (DC) Sodium Chloride 1,000 ML .[id number] IV (DC) Sodium Chloride 500 ML ASDIR PRN IV (DC) Sodium Chloride 1,000 ML .Q20H IV (DC) Physical Exam General appearance: alert, awake Neck: full range of motion, non-tender, normal thyroid, supple/no meningismus, no bruit/NL carotids, no JVD, no lymphadenopathy , no masses or swelling Cardiovascular: CV assessment: regular rate and rhythm Respiratory: clear to auscultation, no distress Abdomen: non-tender, normal bowel sounds , no distention, no guarding, no mass/ organomegaly, no pulsatile mass, no rebound Upper extremity: UE assessment: normal capillary refill, no waldemar ma Results Findings/Data: Laboratory Tests 12/23 12/23 12/23 12/23 1310 1244 1155 1118 Blood Gas Puncture Site Art Line O2 Saturation (90 - 100 %) 82.7 L 99.7 95.7 10 0.0 ABG pH (7.35 - 7.45) 7.308 L 7.355 7.365 7.398 ABG pCO2 (35.0 - 45 mmHg) 39.4 39.7 41.6 41.5 ABG pO2 (80 - 100.0 mmHg) 51.5 L 195.8 H 82.6 4 90.4 *H ABG PO2/FiO2 Ratio (mm/Hg) 57.22 ABG HCO3 (22.0 - 26.0 MMOL/L) 19.7 L 22.2 23.8 25.6 ABG Total CO2 20.9 23.4 25.1 26.8 ABG Base Excess (-4.0 - 4.0 MMOL/L) -6.6 L -3.1 -1.5 0.6 ABG Hematocrit (37.5 - 50.7 %) 26 L 31 L 30 L 2 9 L ABG Hemoglobin (12.5 - 16.9 G/DL) 8.8 L 10.7 L 10.0 L 9.9 L Sodium (134 - 147 MEQ/L) 147 143 142 140 Potassium (3.4 - 5.0 MEQ/L) 2.7 *L 3.6 2.9 L 4. 1 Chloride (100 - 108 MEQ/L) 113 H 109 H 107 106 Ionized Calcium (1.12 - 1.32 MMOL/L) 1.11 L 1. 25 1.12 1.10 L Lactic Acid (0.9 - 1.7 mmol/l) 4.2 *H 3.7 H 3.0 H 2.0 H O2 Delivery Device Adult Vent Vent Mode CPAP/PS FiO2 (%) 90 PEEP (cmH2O) 5 Pressure Support (cmH2O) 5 12/23 12/23 12/23 12/23 1054 1020 0951 0909 Blood Gas O2 Saturation (90 - 100 %) 100.0 99.9 99.9 99.6 ABG pH (7.35 - 7.45) 7.422 7.421 7.419 7.390 ABG pCO2 (35.0 - 45 mmHg) 40.1 39.2 40.7 41.0 ABG pO2 (80 - 100.0 mmHg) 371.9 *H 252.2 *H 320 .1 *H 178.3 H ABG HCO3 (22.0 - 26.0 MMOL/L) 26.1 H 25.5 26.4 H 24.8 ABG Total CO2 27.3 26.7 27.6 26.1 ABG Base Excess (-4.0 - 4.0 MMOL/L) 1.5 1.0 1.7 -0.2 ABG Hematocrit (37.5 - 50.7 %) 29 L 29 L 30 L 3 9 ABG Hemoglobin (12.5 - 16.9 G/DL) 9.9 L 9.9 L 1 0.3 L 13.1 Sodium (134 - 147 MEQ/L) 140 139 139 141 Potassium (3.4 - 5.0 MEQ/L) 4.4 4.1 4.2 3.6 Chloride (100 - 108 MEQ/L) 105 105 104 106 Ionized Calcium (1.12 - 1.32 MMOL/L) 1.08 L 1.0 6 L 1.03 L 1.15 Lactic Acid (0.9 - 1.7 mmol/l) 1.8 H 1.0 1.1 0. 9 / 0703 Blood Gas O2 Saturation (90 - 100 %) 96.0 ABG pH (7.35 - 7.45) 7.396 ABG pCO2 (35.0 - 45 mmHg) 45.2 H ABG pO2 (80 - 100.0 mmHg) 83.0 ABG HCO3 (22.0 - 26.0 MMOL/L) 27.8 H ABG Total CO2 29.2 ABG Base Excess (-4.0 - 4.0 MMOL/L) 2.3 ABG Hematocrit (37.5 - 50.7 %) 40 ABG Hemoglobin (12.5 - 16.9 G/DL) 13.7 Sodium (134 - 147 MEQ/L) 141 Potassium (3.4 - 5.0 MEQ/L) 3.5 Chloride (100 - 108 MEQ/L) 105 Ionized Calcium (1.12 - 1.32 MMOL/L) 1.19 Lactic Acid (0.9 - 1.7 mmol/l) 1.5 Laboratory Tests 12/23 12/23 12/23 12/23 12/23 1310 1310 1310 1244 1155 Chemistry Sodium (134 - 147 mEq/L) 146 Potassium (3.4 - 5.0 mEq/L) 3.5 Chloride (100 - 108 mEq/L) 112 H Carbon Dioxide (21 - 33 mEq/l) 24 Anion Gap (0 - 20) 14 BUN (7 - 18 mg/dL) 15 Creatinine (0.6 - 1.3 mg/dL) 1.1 POC Creatinine (0.8 - 1.3 mg/dL) 0.9 0.9 1.1 Glomerular Filtr Rate (80 - 90) 66.8 L Glucose (70 - 110 mg/dL) 154 H POC Glucose (mg/dL) (70 - 110 MG/DL) 122 H 149 H 182 H Lactic Acid (0.4 - 1.9 mmol/L) 5.1 *H Calcium (8.0 - 10.5 mg/dL) 9.0 Magnesium (1.80 - 2.40 mg/dL) 2.61 H 12/23 12/23 12/23 12/23 12/23 1118 1054 1020 0951 0909 Chemistry POC Creatinine (0.8 - 1.3 mg/dL) 1.0 0.9 1.0 0. 9 1.0 POC Glucose (mg/dL) (70 - 110 MG/DL) 137 H 140 H 136 H 135 H 161 H 12/23 12/23 12/23 12/23 12/22 0703 0400 0400 0400 1543 Chemistry Sodium (134 - 147 mEq/L) 142 Potassium (3.4 - 5.0 mEq/L) 3.1 L Chloride (100 - 108 mEq/L) 107 Carbon Dioxide (21 - 33 mEq/l) 27 Anion Gap (0 - 20) 11 BUN (7 - 18 mg/dL) 15 Creatinine (0.6 - 1.3 mg/dL) 1.0 POC Creatinine (0.8 - 1.3 mg/dL) 1.1 Glomerular Filtr Rate (80 - 90) 74.5 L Glucose (70 - 110 mg/dL) 112 H POC Glucose (70 - 110 MG/DL) 166 H POC Glucose (mg/dL) (70 - 110 MG/DL) 136 H Hemoglobin A1c (4.8 - 6.0 %A1C) 5.6 Calcium (8.0 - 10.5 mg/dL) 9.4 Total Bilirubin (0.0 - 1.0 mg/dL) 0.50 AST (15 - 37 IUnit/L) 17 ALT (30 - 65 IUnit/L) 16 L Total Alk Phosphatase (20 - 125 IUnit/L) 59 B-Natriuretic Peptide (0 - 100 PG/ML) 35.0 Total Protein (6.4 - 8.2 g/dL) 6.8 Albumin (3.4 - 5.0 g/dL) 3.80 Triglycerides (40 - 150 mg/dL) 117 Cholesterol (<200 mg/dL) 141 LDL Cholesterol Measurd (0 - 100 mg/dL) 96.7 HDL Cholesterol (32 - 72 mg/dL) 33.0 Cholesterol/HDL Ratio (3.43 - 4.97 RATIO) 4.27 Laboratory Tests 12/23 12/23 12/23 12/23 12/23 1157 1156 1120 1056 1022 Coagulation INR (0.8 - 1.2) 1.4 H PTT (Tom) (25.0 - 39.5 Seconds) 28.2 PT Patient/Control Mix (9.3 - 12.9 15.6 H SECONDS) Activated Coag Time (74 - 137 SEC) 109 500 H 54 3 H 670 H 12/23 12/23 12/23 12/23 12/23 0953 0927 0926 0706 0400 Coagulation INR (0.8 - 1.2) 1.1 PTT (Tom) (25.0 - 39.5 Seconds) 30.1 PT Patient/Control Mix (9.3 - 12.9 SECONDS) 12. 1 Activated Coag Time (74 - 137 SEC) 654 H 626 H 626 H 120 Laboratory Tests 12/23 12/23 12/23 1310 1156 0400 Hematology WBC (4.5 - 11.0 x10 3/uL) 16.4 H 17.0 H 6.1 RBC (4.00 - 5.60 x10 6/uL) 3.84 L 3.46 L 4.68 Hgb (12.5 - 16.9 g/dL) 11.1 L 10.0 L 13.0 Hct (37.5 - 50.7 %) 34.7 L 31.2 L 41.6 MCV (81.0 - 99.0 fL) 90.4 90.2 88.9 MCH (27.0 - 33.0 pg) 28.9 28.9 27.8 MCHC (33.0 - 37.0 g/dL) 32.0 L 32.1 L 31.3 L RDW (11.5 - 14.5 %) 15.4 H 15.3 H 15.2 H Plt Count (150 - 400 x10 3/uL) 211 208 237 MPV (7.0 - 9.0 fL) 10.5 H 10.6 H 10.7 H Neut % (Auto) (56.0 - 77.0 %) 77.0 70.6 49.3 L Lymph % (Auto) (14.0 - 32.0 %) 19.4 25.2 39.9 H [place] % (Auto) (4.8 - 9.0 %) 2.2 L 2.6 L 7.7 Eos % (Auto) (0.3 - 3.7 %) 0.2 L 0.2 L 2.1 Baso % (Auto) (0.0 - 2.0 %) 0.3 0.4 0.7 Neut # (Auto) (2.0 - 7.6 x10 3/uL) 12.58 H 12.0 0 H 2.99 Lymph # (Auto) (1.0 - 3.8 x10 3/uL) 3.18 4.28 H 2.42 [place] # (Auto) (0.1 - 0.8 x10 3/uL) 0.36 0.45 0. 47 Eos # (Auto) (0.0 - 0.2 x10 3/uL) 0.04 0.04 0.1 3 Baso # (Auto) (0.0 - 0.2 x10 3/uL) 0.05 0.06 0. 04 Abs Immat Gran (auto) (0.00 - 0.03 x10 3/uL) 0. 15 H 0.17 H 0.02 Add Manual Diff NO NO NO Immature Gran % (0.0 - 2.0 %) 0.9 1.0 0.3 Nucleated RBC % (0 - 0 %) 0.0 0.0 0.0 Nucleated RBCs # (Man) (0.0 - 0.1 x10 3/uL) 0.0 0 0.00 0.00 Microbiology Date/Time Procedure - Status Source Growth 12/22 2209 MSSA Surveillance Screen - COMP NASAL 12/22 2209 MRSA DNA Surveillance Screen - COMP NASAL Laboratory Tests 12/23 12/23 1310 0400 Chemistry Magnesium (1.80 - 2.40 mg/dL) 2.61 H B-Natriuretic Peptide (0 - 100 PG/ML) 35.0 Radiology data: Recent Impressions: ULTRASOUND - DUP VEIN BUCK 12/22 174 Report Impression - Status: SIGNED Entered: 12/22/2020 1747 IMPRESSION: 1. The greater saphenous veins are patent bilate rally from the ankles to the saphenofemoral junctions. 2. Vein mapping as described above. SL: SG-H Impression By: Solo Chapman M.D. ULTRASOUND - DUP EXTRACRANIAL BUCK 12/22 1746 Report Impression - Status: SIGNED Entered: 12/22/2020 175 IMPRESSION: 1. RIGHT: Carotid artery stenosis estimated at l ess than 50% 2. LEFT: Carotid artery stenosis estimated at le ss than 50% End Impression Consensus panel Doppler US criteria for diagnosi s of ICA stenosis. Stenosis (%) ICA PSV (cm/sec) ICA/CCA ratio <50 <125 <2.0 50-69 125-230 2.0-4.0 >70 but less than >230 >4.0 near occlusion Near occlusion High, low, or undetectable Variab le SL: SG-H Impression By: Solo Chapman M.D. CAT SCAN - CT CHEST W/O CONTRAST 12/22 1809 Report Impression - Status: SIGNED Entered: 12/22/2020 1904 IMPRESSION: 1. Moderate to severe left anterior descending c oronary artery atherosclerotic disease. 2. Mild centrilobular emphysematous changes in b oth upper lobes. 3. Cholelithiasis. SL: APATIL-H Impression By: [email or web address] Radha Johnson RADIOLOGY - XR CHEST 1 V 12/23 1337 Report Impression - Status: SIGNED Entered: 12/23/2020 1427 IMPRESSION: 1. Postoperative chest with diminished lung volu mes, indistinct perihilar opacities and left basilar pleural-par enchymal disease. Indistinct appearance of the postoperative cardi ac silhouette. SL: [id number] Impression By: Oma Torres M.D. Results: labs reviewed, vital signs stable Diagnosis, Assessment Plan Free Text DxA P Notes Free Text DxA P Notes: 1. Severe LM and three vessel CAD: CABG TODAY 2. Obesity 3. HTN 4. Hyperlipedemia 5. NIDDM 6. Sleesp apnea PER CTS Electronically Signed by Ian Coronel MD on 10/14 at 1432 RPT #:[id number] END OF REPORT 2020-12-23 13:30:00-00:00 [facility] ([facility] Critical Care Consult Note REPORT#:[id number] REPORT STATUS: Signed DATE:12/23/20 TIME: 1330 PATIENT: SONYA MINAYA UNIT #: [id number] ROOM/BED: [place] [address] : 53 AGE: 65 SEX: M ATTEND: Jae Jaffe MD ADM AUTHOR: Ramin Sanchez MD * ALL edits or amendments must be made on the [employer]/computer document * History of Present Illness HPI Reason for consult: Status post CABG x5, PVI and ILAA done on 12/24/19 Chief complaint: Status post CABG x5, PVI and ILAA done on 12/24/19 HPI: 65-year-old male, with a past medical history of multivessel coronary artery disease, diabetes mellitus, hypertension, atrial fibrillation on Xarelto at home , obstructive sleep apnea, on CPAP, hyperlipidem ia, obesity. Patient had a cardiac cath done and showed multivessel disease . Cardiothoracic was consulted.Status post CABG x5, PVI and ILAA done on 12/23/2020. Patient received 2 L of demarco talloids, 620 mL of Cell Saver, 1 unit of autologous blood, EBL 100 mL, patient is intubated, ET tube 8.5 cm, on mechanical ventilation, on low-dose epi nephrine drip, insulin drip, Amicar drip, and has [address] The patient was transferre d to CVICU for further care. History - Adult longitudinal Additional medical history: Adam artery disease, hypertension, diabetes uriel itus type 2, dyslipidemia, morbid obesity Additional family history: Coronary artery disease, stroke, cancer, Alcohol use: Alcohol use Drug use: Denies recreational drugs Smoking status: Smoking status for patients 13 years old or old er: Former Smoker Allergies: Coded Allergies: NSAIDS (Non-Steroidal Anti-Inflamma (Severe, PEPITO PHYLAXIS 12/22/20) aspirin (Severe, ANAPHYLAXIS 12/21/20) Review of Systems ROS Unable to obtain due to: Intubated, received sedation in the OR, unable t o do review of systems Objective Physical Exam VS/I O: Last Documented: Result Date Time O2 Delivery Room air 12/23 199 Temp 98.5 12/23 0200 Pulse Ox 90 12/23 0200 B/P 122/70 12/23 199 B/P Mean 92 12/23 0200 Pulse 59 12/23 0200 Resp 13 12/23 0200 24 hour I O ending at 0700: 12/23 0700 12/22 1900 Intake Total 240 Output Total 150 Balance 90 Intake, Oral 240 Output, Urine 150 Patient 130.6 kg 136.364 kg Weight Weight Bed scale Stated/Reported Measurement Method Patient Weight and BMI Weight (kg): 130.600 BMI: 41.3 Medications: Active Meds + DC'd Last 24 Hrs Cyanocobalamin 500 MCG DAILY PO Ferrous Sulfate 325 MG DAILY PO Bisacodyl 10 MG ONCE PRN RECTAL Magnesium Hydroxide 30 ML ONCE PRN PO Atorvastatin Calcium 40 MG 2100 PO Clopidogrel Bisulfate 75 MG DAILY PO Polyethylene Glycol 17 GM DAILY PO Docusate Sodium 100 MG BID PO Metoprolol Tartrate 12.5 MG Q12HR PO Senna 2 TAB BEDTIME PO (CKD) Amiodarone HCl 200 MG TID PO Cefazolin Sodium 3 GM ONCE ONE IV Sodium Chloride 250 ML Mupirocin 1 APPLIC BID NASAL Potassium Chloride 100 ML .STK-MED ONE IV (DC) Sodium Bicarbonate 0 .STK-MED ONE IV (DC) Parenteral Electrolytes 1,000 ML .STK-MED ONE IV (DC) Potassium Chloride 100 ML .STK-MED ONE IV (DC) Acetaminophen 650 MG Q4H PRN PRN PO Acetaminophen 650 MG Q4H PRN PRN RECTAL Albumin Human 25 GM ASDIR PRN IV Calcium Chloride 1 GM ASDIR PRN IV Chlorhexidine Gluconate 15 ML Q2H MM (CKD) Dextrose/Water 25 ML ASDIR PRN IV (CKD) Dextrose/Water 50 ML ASDIR PRN IV (CKD) Epinephrine 5 MG ASDIR IV Dextrose/Water 245 ML Glucagon 1 MG ASDIR PRN IM Insulin Human Regular 100 UNIT ASDIR IV (CKD) Sodium Chloride 99 ML Magnesium Sulfate 100 ML ASDIR PRN IV Magnesium Sulfate 50 ML ASDIR PRN IV Magnesium Sulfate/Dextrose 100 ML ASDIR PRN IV Morphine Sulfate 4 MG Q2H PRN PRN IV Nitroglycerin/Dextrose 250 ML ASDIR IV Norepinephrine Bitartrate 250 ML TITRATE IV Ondansetron HCl 4 MG Q6H PRN PRN IV Oxycodone HCl 5 MG Q4H PRN PRN PO Oxycodone HCl 10 MG Q4H PRN PRN PO Potassium Chloride 100 ML ASDIR PRN IV Sodium Bicarbonate 50 MEQ ASDIR PRN IV Sodium Chloride 1,000 ML .Q20H IV Sodium Chloride 250 ML Q24H IV Cefazolin Sodium 0 .STK-MED ONE .ROUTE (DC) Sodium Chloride 100 ML .STK-MED ONE IV (DC) Glycopyrrolate 0 .STK-MED ONE .ROUTE (DC) Metoclopramide HCl 0 .STK-MED ONE .ROUTE (DC) Neostigmine Methylsulfate 0 .STK-MED ONE .ROUTE (DC) Ondansetron HCl 0 .STK-MED ONE .ROUTE (DC) Sevoflurane 0 .STK-MED ONE INH (DC) Amlodipine Besylate 5 MG DAILY PO (DC) Hydrochlorothiazide 25 MG DAILY PO (DC) Losartan Potassium 100 MG DAILY PO (DC) Hydrochlorothiazide 25 MG Losartan Potassium 100 MG DAILY PO (DC) Metoprolol Succinate 100 MG DAILY PO (DC) Paroxetine HCl 40 MG DAILY PO Rocuronium Bronte 0 .STK-MED ONE IV (DC) Heparin Sodium 0 .STK-MED ONE .ROUTE (DC) Albumin Human 100 ML .STK-MED ONE IV (DC) Heparin Sodium 0 .STK-MED ONE .ROUTE (DC) Sodium Chloride 100 ML .STK-MED ONE IV (DC) Lidocaine HCl 0 .STK-MED ONE IV (DC) Magnesium Sulfate 0 .STK-MED ONE IV (DC) Mannitol 0 .STK-MED ONE IV (DC) Phenylephrine HCl 0 .STK-MED ONE .ROUTE (DC) Sodium Bicarbonate 0 .STK-MED ONE IV (DC) Fentanyl Citrate 0 .STK-MED ONE IV (DC) Midazolam HCl 0 .STK-MED ONE .ROUTE (DC) Propofol 20 ML .STK-MED ONE IV (DC) Fentanyl Citrate 0 .STK-MED ONE .ROUTE (DC) Dexamethasone Sodium Phosphate 0 .STK-MED ONE .R OUTE (DC) Esmolol HCl 0 .STK-MED ONE IV (DC) Lidocaine HCl 0 .STK-MED ONE .ROUTE (DC) Lidocaine HCl 0 .STK-MED ONE .ROUTE (DC) Lidocaine HCl 0 .STK-MED ONE .ROUTE (DC) Midazolam HCl 0 .STK-MED ONE .ROUTE (DC) Ondansetron HCl 0 .STK-MED ONE .ROUTE (DC) Rocuronium Bronte 0 .STK-MED ONE IV (DC) Sodium Chloride 250 ML .STK-MED ONE IV (DC) Pantoprazole 40 MG DAILY@0600 PO Sodium Chloride 250 ML .STK-MED ONE IV (DC) Vancomycin HCl 0 .STK-MED ONE .ROUTE (DC) Papaverine HCl 0 .STK-MED ONE IV (DC) Phenylephrine HCl 250 ML .STK-MED ONE IV (DC) Epinephrine/Dextrose 250 ML .STK-MED ONE IV (DC) Insulin Human Regular 100 ML .STK-MED ONE IV (DC ) Norepinephrine Bitartrate 250 ML .STK-MED ONE IV (DC) Aminocaproic Acid 0 .STK-MED ONE IV (DC) Famotidine 0 .STK-MED ONE IV (DC) Heparin Sodium 0 .STK-MED ONE .ROUTE (DC) Nitroglycerin/Dextrose 250 ML .STK-MED ONE IV (D C) Sodium Chloride 100 ML .STK-MED ONE IV (DC) Calcium Chloride 0 .STK-MED ONE IV (DC) Cefazolin Sodium 0 .STK-MED ONE .ROUTE (DC) Magnesium Sulfate 0 .STK-MED ONE IV (DC) Potassium Chloride 100 ML .STK-MED ONE IV (DC) Protamine Sulfate 0 .STK-MED ONE IV (DC) Potassium Chloride 40 MEQ ONCE ONE PO (DC) Cefazolin Sodium 3 GM PREOP ONCALL IV (DC) Sodium Chloride 250 ML Metoprolol Tartrate 6.25 MG ONCE ONE PO (DC) Vancomycin HCl 2,045.46 MG PREOP ONCALL IV (CAN) Sodium Chloride 250 ML Vancomycin HCl 2,000 MG PREOP IV (DC) Sodium Chloride 500 ML Verapamil HCl 16.6 MG .Q24H ONE IV (DC) Heparin Sodium (Porcine) 1,660 UNIT Sodium Bicarbonate 0.7 ML Nitroglycerin/Dextrose 8.3 MG Lactated Ringer's 949.5 ML Mupirocin 1 APPLIC BID NASAL (DC) Gemfibrozil 600 MG BID PO (DC) Atropine Sulfate 0.5 MG ASDIR PRN IV (DC) Ondansetron HCl 4 MG Q4H PRN PRN IV (DC) Sodium Chloride 1,000 ML .[id number] IV (DC) Sodium Chloride 500 ML ASDIR PRN IV (DC) Sodium Chloride 1,000 ML .Q20H IV (DC) Results Findings/Data: Laboratory Tests 12/23/20 1156: [Embedded Image Not Available] 12/23/20 0400: [Embedded Image Not Available] Laboratory Tests 12/23 12/23 12/23 12/23 1310 [id number] Blood Gas Puncture Site Art Line O2 Saturation (90 - 100 %) 82.7 L 99.7 95.7 100 .0 ABG pH (7.35 - 7.45) 7.308 L 7.355 7.365 7.398 ABG pCO2 (35.0 - 45 mmHg) 39.4 39.7 41.6 41.5 ABG pO2 (80 - 100.0 mmHg) 51.5 L 195.8 H 82.6 4 90.4 *H ABG PO2/FiO2 Ratio (mm/Hg) 57.22 ABG HCO3 (22.0 - 26.0 MMOL/L) 19.7 L 22.2 23.8 25.6 ABG Total CO2 20.9 23.4 25.1 26.8 ABG Base Excess (-4.0 - 4.0 MMOL/L) -6.6 L -3.1 -1.5 0.6 ABG Hematocrit (37.5 - 50.7 %) 26 L 31 L 30 L 2 9 L ABG Hemoglobin (12.5 - 16.9 G/DL) 8.8 L 10.7 L 10.0 L 9.9 L Sodium (134 - 147 MEQ/L) 147 143 142 140 Potassium (3.4 - 5.0 MEQ/L) 2.7 *L 3.6 2.9 L 4. 1 Chloride (100 - 108 MEQ/L) 113 H 109 H 107 106 Ionized Calcium (1.12 - 1.32 MMOL/L) 1.11 L 1.2 5 1.12 1.10 L Lactic Acid (0.9 - 1.7 mmol/l) 4.2 *H 3.7 H 3.0 H 2.0 H O2 Delivery Device Adult Vent Vent Mode CPAP/PS FiO2 (%) 90 PEEP (cmH2O) 5 Pressure Support (cmH2O) 5 12/23 12/23 12/23 12/23 1054 1020 0951 0909 Blood Gas O2 Saturation (90 - 100 %) 100.0 99.9 99.9 99. 6 ABG pH (7.35 - 7.45) 7.422 7.421 7.419 7.390 ABG pCO2 (35.0 - 45 mmHg) 40.1 39.2 40.7 41.0 ABG pO2 (80 - 100.0 mmHg) 371.9 *H 252.2 *H 320 .1 *H 178.3 H ABG HCO3 (22.0 - 26.0 MMOL/L) 26.1 H 25.5 26.4 H 24.8 ABG Total CO2 27.3 26.7 27.6 26.1 ABG Base Excess (-4.0 - 4.0 MMOL/L) 1.5 1.0 1.7 -0.2 ABG Hematocrit (37.5 - 50.7 %) 29 L 29 L 30 L 3 9 ABG Hemoglobin (12.5 - 16.9 G/DL) 9.9 L 9.9 L 1 0.3 L 13.1 Sodium (134 - 147 MEQ/L) 140 139 139 141 Potassium (3.4 - 5.0 MEQ/L) 4.4 4.1 4.2 3.6 Chloride (100 - 108 MEQ/L) 105 105 104 106 Ionized Calcium (1.12 - 1.32 MMOL/L) 1.08 L 1.0 6 L 1.03 L 1.15 Lactic Acid (0.9 - 1.7 mmol/l) 1.8 H 1.0 1.1 0. 9 12/23 0703 Blood Gas O2 Saturation (90 - 100 %) 96.0 ABG pH (7.35 - 7.45) 7.396 ABG pCO2 (35.0 - 45 mmHg) 45.2 H ABG pO2 (80 - 100.0 mmHg) 83.0 ABG HCO3 (22.0 - 26.0 MMOL/L) 27.8 H ABG Total CO2 29.2 ABG Base Excess (-4.0 - 4.0 MMOL/L) 2.3 ABG Hematocrit (37.5 - 50.7 %) 40 ABG Hemoglobin (12.5 - 16.9 G/DL) 13.7 Sodium (134 - 147 MEQ/L) 141 Potassium (3.4 - 5.0 MEQ/L) 3.5 Chloride (100 - 108 MEQ/L) 105 Ionized Calcium (1.12 - 1.32 MMOL/L) 1.19 Lactic Acid (0.9 - 1.7 mmol/l) 1.5 Laboratory Tests 12/23 12/23 12/23 12/23 12/23 1310 1244 1155 1118 1054 Chemistry POC Creatinine (0.8 - 1.3 mg/dL) 0.9 0.9 1.1 1. 0 0.9 POC Glucose (mg/dL) (70 - 110 MG/DL) 122 H 149 H 182 H 137 H 140 H 12/23 12/23 12/23 12/23 12/23 1020 0951 0909 0703 0400 Chemistry POC Creatinine (0.8 - 1.3 mg/dL) 1.0 0.9 1.0 1. 1 POC Glucose (mg/dL) (70 - 110 MG/DL) 136 H 135 H 161 H 136 H Hemoglobin A1c (4.8 - 6.0 %A1C) 5.6 12/23 12/23 12/22 0400 0400 1543 Chemistry Sodium (134 - 147 mEq/L) 142 Potassium (3.4 - 5.0 mEq/L) 3.1 L Chloride (100 - 108 mEq/L) 107 Carbon Dioxide (21 - 33 mEq/l) 27 Anion Gap (0 - 20) 11 BUN (7 - 18 mg/dL) 15 Creatinine (0.6 - 1.3 mg/dL) 1.0 Glomerular Filtr Rate (80 - 90) 74.5 L Glucose (70 - 110 mg/dL) 112 H POC Glucose (70 - 110 MG/DL) 166 H Calcium (8.0 - 10.5 mg/dL) 9.4 Total Bilirubin (0.0 - 1.0 mg/dL) 0.50 AST (15 - 37 IUnit/L) 17 ALT (30 - 65 IUnit/L) 16 L Total Alk Phosphatase (20 - 125 IUnit/L) 59 B-Natriuretic Peptide (0 - 100 PG/ML) 35.0 Total Protein (6.4 - 8.2 g/dL) 6.8 Albumin (3.4 - 5.0 g/dL) 3.80 Triglycerides (40 - 150 mg/dL) 117 Cholesterol (<200 mg/dL) 141 LDL Cholesterol Measurd (0 - 100 mg/dL) 96.7 HDL Cholesterol (32 - 72 mg/dL) 33.0 Cholesterol/HDL Ratio (3.43 - 4.97 RATIO) 4.27 Laboratory Tests 12/23 12/23 12/23 12/23 12/23 1157 1156 1120 1056 1022 Coagulation INR (0.8 - 1.2) 1.4 H PTT (Tom) (25.0 - 39.5 Seconds) 28.2 PT Patient/Control Mix (9.3 - 12.9 15.6 H SECONDS) Activated Coag Time (74 - 137 SEC) 109 500 H 54 3 H 670 H 12/23 12/23 12/23 12/23 12/23 0953 0927 0926 0706 0400 Coagulation INR (0.8 - 1.2) 1.1 PTT (Tom) (25.0 - 39.5 Seconds) 30.1 PT Patient/Control Mix (9.3 - 12.9 SECONDS) 12. 1 Activated Coag Time (74 - 137 SEC) 654 H 626 H 626 H 120 Laboratory Tests 12/23 12/23 1156 0400 Hematology WBC (4.5 - 11.0 x10 3/uL) 17.0 H 6.1 RBC (4.00 - 5.60 x10 6/uL) 3.46 L 4.68 Hgb (12.5 - 16.9 g/dL) 10.0 L 13.0 Hct (37.5 - 50.7 %) 31.2 L 41.6 MCV (81.0 - 99.0 fL) 90.2 88.9 MCH (27.0 - 33.0 pg) 28.9 27.8 MCHC (33.0 - 37.0 g/dL) 32.1 L 31.3 L RDW (11.5 - 14.5 %) 15.3 H 15.2 H Plt Count (150 - 400 x10 3/uL) 208 237 MPV (7.0 - 9.0 fL) 10.6 H 10.7 H Neut % (Auto) (56.0 - 77.0 %) 70.6 49.3 L Lymph % (Auto) (14.0 - 32.0 %) 25.2 39.9 H [place] % (Auto) (4.8 - 9.0 %) 2.6 L 7.7 Eos % (Auto) (0.3 - 3.7 %) 0.2 L 2.1 Baso % (Auto) (0.0 - 2.0 %) 0.4 0.7 Neut # (Auto) (2.0 - 7.6 x10 3/uL) 12.00 H 2.99 Lymph # (Auto) (1.0 - 3.8 x10 3/uL) 4.28 H 2.42 [place] # (Auto) (0.1 - 0.8 x10 3/uL) 0.45 0.47 Eos # (Auto) (0.0 - 0.2 x10 3/uL) 0.04 0.13 Baso # (Auto) (0.0 - 0.2 x10 3/uL) 0.06 0.04 Abs Immat Gran (auto) (0.00 - 0.03 x10 3/uL) 0. 17 H 0.02 Add Manual Diff NO NO Immature Gran % (0.0 - 2.0 %) 1.0 0.3 Nucleated RBC % (0 - 0 %) 0.0 0.0 Nucleated RBCs # (Man) (0.0 - 0.1 x10 3/uL) 0.0 0 0.00 Microbiology: 12/22 2209 NASAL: MSSA Surveillance Screen - COM P 12/22 2209 NASAL: MRSA DNA Surveillance Screen - COMP 12/22 1548 NASAL: MRSA DNA Surveillance Screen - ORD Radiology data: Recent Impressions: ULTRASOUND - DUP VEIN BUCK 12/22 174 Report Impression - Status: SIGNED Entered: 12/22/2020 1747 IMPRESSION: 1. The greater saphenous veins are patent bilate rally from the ankles to the saphenofemoral junctions. 2. Vein mapping as described above. SL: SG-H Impression By: Solo Chapman M.D. ULTRASOUND - DUP EXTRACRANIAL BUCK 12/22 1746 Report Impression - Status: SIGNED Entered: 12/22/2020 175 IMPRESSION: 1. RIGHT: Carotid artery stenosis estimated at l ess than 50% 2. LEFT: Carotid artery stenosis estimated at le ss than 50% End Impression Consensus panel Doppler US criteria for diagnosi s of ICA stenosis. Stenosis (%) ICA PSV (cm/sec) ICA/CCA ratio <50 <125 <2.0 50-69 125-230 2.0-4.0 >70 but less than >230 >4.0 near occlusion Near occlusion High, low, or undetectable Variab le SL: SG-H Impression By: Solo Chapman M.D. CAT SCAN - CT CHEST W/O CONTRAST 12/22 1810 Report Impression - Status: SIGNED Entered: 12/22/2020 1904 IMPRESSION: 1. Moderate to severe left anterior descending c oronary artery atherosclerotic disease. 2. Mild centrilobular emphysematous changes in b oth upper lobes. 3. Cholelithiasis. SL: APATIL-H Impression By: BrendanVBRadha Chao Free Text Obj Notes Free Text Obj Notes: Physical exam: VS reviewed General: Somnolent, intubated, obese HEENT: PERRLA, normal conjunctiva Mouth is moist, ett in place Neck, Supple Heart: RRR with no murmurs Lungs: Clear to auscultation, no crackles Abdomen: soft, NT, mild abdominal distention Extr: no lower leg edema Neuro: Somnolent, received sedation in the OR, n ot following commands. Skin: no rashes Has [address] Sternum: Incision is closed with dressings Diagnosis, Assessment Plan Free text DxA P: 65-year-old male, with a past medical history of multivessel coronary artery disease, diabetes mellitus, hypertension, atrial fibrillation on Xarelto at home , obstructive sleep apnea, on CPAP, hyperlipidem ia, obesity. Patient had a cardiac cath done and showed multivessel disease . Cardiothoracic was consulted.Status post CABG x5, PVI and ILAA done on 12/23/2020. Patient received 2 L of demarco talloids, 620 mL of Cell Saver, 1 unit of autologous blood, EBL 100 mL, patient is intubated, ET tube 8.5 cm, on mechanical ventilation, on low-dose epi nephrine drip, insulin drip, Amicar drip, and has [address] Status post CABG x5, PVI and ILAA done on 12/24/19. Coronary artery disease, multivessel Diabetes mellitus, hemoglobin A1c is 5.6 Hypertension Atrial fibrillation Hyperlipidemia Obesity DAMEON Acute anemia blood loss, postop Acute hypoxic respiratory failure, postop Plan: Transferred to CVICU for further care Patient currently is off sedation, plan is to do vacation sedation and goal is to extubate. Keep MAP more than 65 mmhg, patient curr ently is on low-dose epinephrine drip, titrate epinephrine drip for now. Will give 500 mL of crystalloids. Check labs now Patient currently is intubat ed, on mechanical ventilation, plan is to put him on SIMV, ABG reviewed, hypoxic, monitor him closely . Acidotic. Plan is to do vacation sedation and then do SBT and goal is to extubate today. Keep O2 sats more than 91%. Patient has a history of sleep apnea, we ars CPAP at home, once he is extubated he needs to be on BiPAP or CPAP at bedtime and d uring naps. ABG reviewed Continue insulin drip per CABG protocol, also th e patient is diabetic, needs tight glucose control. Hyperlipidemia, plan is to continue Lipitor. Atrial fibrillation, monitor him closely, status post ILAA CABG orders were written. Continue Amicar drip per protocol Has chest tubes #[address], continue to monitor chest tube output. Hypokalemia, replete potassium now. Trend lactic acid Case discussed with thoracic surgery and anesthe violette. Critical care time 53 minutes Electronically Signed by Ramin Sanchez MD n 12/23/20 at 1635 RPT #:[id number] END OF REPORT 2020-12-23 13:27:00-00:00 [id number] [place] [address] PATIENT NAME: SONYA MINAYA ADMIT DATE: ACCOUNT NO: [id number] ROOM NO: G.3363 AGE: 65 REPORT TYPE: eELECTROCARDIOGRAM REPORT SEX: M ADMITTING PHYSICIAN:Jae Jaffe MD ATTENDING PHYSICIAN:Jae Jaffe MD Order: [id number] Test Reason : S/P CABG Test Date/Time Stamp: SunDec 23 2020 13:27:36 Blood Pressure : / mmHG Vent. Rate : 079 BPM Atrial Rate : 079 BPM P-R Int : 242 ms QRS Dur : 086 ms QT Int : 448 ms P-R-T Axes : 092 001 051 degree s QTc Int : 513 ms Sinus rhythm with 1st degree AV block Low voltage QRS Prolonged QT Abnormal ECG No previous ECGs available Confirmed by MD BERNA, IAN ([id number]) on 6:06:51 PM Referred By: Zara Kumari Confirmed by:SHANTELL CORONEL MD Electronically Signed by Ian Coronel MD on 11/14 at 1807 PATIENT NAME: SONYA MINAYA 0927 2020-12-23 12:58:00-00:00 [id number] [place] [id number] PATIENT NAME: SONYA MINAYA ADMIT DATE: 1 ACCOUNT NO: [id number] ROOM NO: G.3363 AGE: 65 REPORT TYPE: OPERATIVE REPORT SEX: M ADMITTING PHYSICIAN:Jae Jaffe MD ATTENDING PHYSICIAN:Jae Jaffe MD OPERATION DATE: 12/23/2020 PREOPERATIVE DIAGNOSES: 1. Coronary artery disease. 2. Paroxysmal atrial fibrillation. POSTOPERATIVE DIAGNOSES: 1. Coronary artery disease. 2. Paroxysmal atrial fibrillation. PROCEDURES: 1. Coronary artery bypass graft surgery x4 (GAMING to LAD, saphenous vein to diagonal, saphenous vein to marginal, saphenous vein to PDA). 2. Pulmonary vein isolation. 3. Isolation of left atrial appendage. 4. Endoscopic vein harvesting (right greater sap henous vein). SURGEON: Paresh Hernadez MD FLIGHT TEST DATA ACQUISITION TECHNICIAN: Tereso Zapata. ANESTHESIOLOGIST: Dr. Mann. ANESTHESIA: General endotracheal anesthesia. ESTIMATED BLOOD LOSS: 100 mL. INDICATIONS: Mr. Minaya is a 65-year-old gentlem an, who has been experiencing exertional chest discomfort during the stay and found to have severe triple vessel coronary artery disease involving the lef t mainstem. After due preop counseling, he was brought to the operating room today for coronary artery bypass graft surgery, pulmonary vein isolation, and isolation of left atrial appendage. FINDINGS: 1. Vein was harvested from the right leg using e ndoscopic vein harvest technique. Vein was of satisfactory quality, rosmery suring about 4 mm in size. 2. Normal sternum. 3. Good quality GAMING, measuring 2 mm in size wit h excellent flow. 4. Normal pericardium without any intrapericardi al adhesion, minimal intrapericardial fluid. 5. LAD, 2 mm, good quality artery. 6. Diagonal, 1.75 mm, good quality artery. PATIENT NAME: SONYA MINAYA 0927 7. Marginal, 1.5 mm, thin walled artery. 8. PDA, 1.5 mm, diseased artery. 9. Pulmonary vein isolation was performed by cre ating a box lesion around the pulmonary veins using AtriCure device. 10. Isolation of left atrial appendage was perfo rmed by placing 2 concentric pursestring sutures at the b ase of the left atrial appendage using pledgeted 4-0 Prolene suture. PROCEDURE IN DETAIL: Mr. Bearden son was identified in the preoperative holding area and brought to the operating room and placed sup ine on the operating table. After induction of general endotracheal anesthes ia; Duran catheter, radial arterial line, and antibiotics were placed. The patient's anterior torso and both lower extremities were prepped and draped i n standard surgical fashion. The vein was harvested from the right leg using endoscopic vein harvest technique. Following harvesting of vein, subcuta neous tissue was closed with 2-0 Vicryl and skin with 4-0 Vicryl. Simultaneou sly, median sternotomy was performed. Left internal mammary artery was harv ested. The patient was heparinized. Pericardium was opened longitudinal ly and a pericardial well was created. Cardiopulmonary bypass was instituted u sing ascending aorta and 3-stage cannula in the right atrium. The patient was cooled to 34 degrees centigrade. Dissection was performed around the right superior and inferior pulmonary vein. A red rubber catheter was then p assed around the right-sided pulmonary vein. This was used to guide the AtriC ure device and lesion set x2 was created. Next, dissection was performed arou nd the left superior and inferior pulmonary vein. The ligament of Marshal l was cauterized. Next, a red rubber catheter was passed around the left-sided vein, which was then used to guide the AtriCure device and lesion set x2 was created. Next, Crossclamp was applied and the heart was arrested with 1.5 L of antegrade cold blood cardioplegia. Cardioplegia was repeated at inter rashad of 10 minutes all throughout duration of cross-clamp. We began by exploring the PDA. This was 1.5 mm in size, diseased artery. Arterio kenyetta was performed with a [place] blade and extended with Valdovinos scissors. A segment of p reviously harvested reverse saphenous vein was anastomosed in end-to -side manner using 7-0 Prolene suture. The vein graft to the PDA was brought along the right side of the heart and sized. An aortotomy was performed on the right a spect of the aorta using 4-mm punch. Proximal anastomosis of the PDA graft was then performed using running 6-0 Prolene suture. Next, the marginal was expl ored. This was thin walled vessel measuring about 1.75 mm in size. An arter iotomy was performed with a [place] blade and extended with Valdovinos scissors. A segment of previously harvested reverse saphenous vein was anastomosed in end-to-side manner using 7-0 Prolene suture. The vein graft to the ma rginal was brought along the left side of the heart and sized. An aortotomy was perform ed on the left aspect of the aorta using 4-mm punch. Proximal anastomosis of the marginal graft was then performed using running 6-0 Prolene suture. Next , two concentric 4-0 Prolene sutures were placed at the base of the left atri al appendage. Rewarming was commenced at this stage. Next, the diagonal was explored. This was measuring about 1.75 mm in size. An arteriotomy was perfor med with a [place] blade and extended with Valdovinos scissors. A segment of previ ously harvested reverse saphenous vein was anastomosed in end-to -side manner using 7-0 Prolene suture. Vein graft to the diagonal was brought along the left side of the heart and sized. An aortotomy was performed on the left as pect of the aorta using 4-mm punch. Proximal anastomosis of diagonal graft was then performed using running 6-0 Prolene suture. Finally, LAD was exp lored. This was a good quality artery, measuring 2 mm in size. An arteriotomy was perfo rmed with a [place] blade and PATIENT NAME: SONYA MINAYA 0927 extended with Valdovinos scissors. GAMING was a nastomosed in end-to-side manner using running 8-0 Prolene suture. GAMING pedicle was tac ked to epicardium using interrupted 6-0 Prolene suture. A slit w as made in the pericardium on the left aspect, so as to accommodate the GAMING. Careful deaeration was performed and the cross-clamp was released. One ventricular wire w as placed. A 28-Rwandan chest tube was placed in the mediastinum and 28-angled chest tube was placed in the left pleural space. Once the patient was at temp erature, he was weaned off cardiopulmonary bypass with minimal inotropic bahena pport. Heparin was reversed with protamine. Decannulation was uneventful. Af ter confirming hemostasis, chest was closed in layers using stainless steel wires for the sternum, #1 Vicryl for the fascia, 2-0 Vicryl for subcutaneo us tissue, and 4-0 Vicryl for the skin. The patient was tr ansferred to the intensive care unit, intubated, in stable condition. Dictated By: Paresh Hernadez MD WT: OP:LUIS/NORBERTO/NTS Conf#: [id number]/DID#: [id number] Authenticated and Edited by Carrie Hernadez MD On 12/27/20 1:59:55 PM at 1402 PATIENT NAME: SONYA MINAYA 0927 2020-12-23 12:49:00-00:00 [facility] ([facility]) Brief Op Note REPORT#:[id number] REPORT STATUS: Signed DATE:12/23/20 TIME: 124 PATIENT: SONYA MINAYA UNIT #: [id number] ROOM/BED: [place] [address] : 53 AGE: 65 SEX: M ATTEND: Jae Jaffe MD [facility] AUTHOR: Paresh Hernadez MD * ALL edits or amendments must be made on the [employer]/computer document * Op/Inv Proc Note - Brief Pre-procedure diagnosis: CAD PAF Post-procedure diagnosis: same as pre procedure dx Procedures performed: CABG x 4 (GAMING-LAD, SVG-Gabbi, SVG-OM, SVG-PDA) ILAA PVI EVH (RGSV) Primary Surgeon: Maricarmen [employer] Inspector(s): Tereso Zapata Findings: LAD-2mm Complications: none Estimated blood loss in ml's: 100 cc Specimens removed/altered: none at 1252 RPT #:[id number] END OF REPORT 2020-12-22 19:49:00-00:00 [facility] ([facility]) Clinical Note REPORT#:[id number] REPORT STATUS: Signed DATE:12/22/20 TIME: 1948 PATIENT: SONYA MINAYA UNIT #: [id number] ROOM/BED: [place] [address] : 53 AGE: 65 SEX: M ATTEND: Jae Jaffe MD ADM AUTHOR: Kevin Hinkle NP * ALL edits or amendments must be made on the [employer] document * Clinical Note Note: CABG( DM, HTN, sleep apnea, obesity, LAD disease , ) Risk of Mortality: 0.974% Renal Failure: 1.428% Permanent Stroke: 0.650% Prolonged Ventilation: 6.686% DSW Infection: 0.415% Reoperation: 1.578% Morbidity or Mortality: 10.509% Short Length of Stay: 40.122% Long Length of Stay: 4.097% Electronically Signed by Kevin Hinkle NP on at 1950 at 0028 RPT #:[id number] END OF REPORT 2020-12-22 19:49:00-00:00 [facility] ([facility]) Clinical Note REPORT#:[id number] REPORT STATUS: Signed DATE:12/22/20 TIME: 1948 PATIENT: SONYA MINAYA UNIT #: [id number] ROOM/BED: [place] [address] : 53 AGE: 65 SEX: M ATTEND: Jae Jaffe MD ADM AUTHOR: Kevin Hinkle NP * ALL edits or amendments must be made on the [employer] document * Clinical Note Note: CABG( DM, HTN, sleep apnea, obesity, LAD disease , ) Risk of Mortality: 0.974% Renal Failure: 1.428% Permanent Stroke: 0.650% Prolonged Ventilation: 6.686% DSW Infection: 0.415% Reoperation: 1.578% Morbidity or Mortality: 10.509% Short Length of Stay: 40.122% Long Length of Stay: 4.097% Electronically Signed by Kevin Hinkle NP on at 1950 RPT #:[id number] END OF REPORT 2020-12-22 18:55:00-00:00 [facility] ([facility]) History Physical - Adult REPORT#:[id number] REPORT STATUS: Signed DATE:12/22/20 TIME: 1854 PATIENT: SONYA MINAYA UNIT #: [id number] ROOM/BED: [facility] [place] : 53 AGE: 65 SEX: M ATTEND: Jae Christianson MD ADM AUTHOR: Junie Yu MEDICINE ASSISTANT * ALL edits or amendments must be made on the [employer]/computer document * Junie Yu 12/22/201854: History of Present Illness HPI Chief complaint: Chest pain/dyspnea on exertion/status post left heart catheter revealing multivessel coronary artery disease HPI: 65-year-old male with past m edical history of coronary artery disease, diabetes mellitus type 2, hypertension, A. fib on Xarelto , obstructive sleep apnea was admitted for elective coronary angiogram which r evealed Multivessel coronary artery disease requiring cardiovascular surgery evaluation for possible CABG. Patient currently undergoing preop work- up for possible CABG. Patient notes he is symptoms that led to left heart cath intermit tent chest pain, and dyspnea with minimal exertion. Currently denies any of t he above symptoms. Vital signs are stable Patient has temperature of 99.3 History Additional medical history: Adam artery disease, hypertension, diabetes uriel itus type 2, dyslipidemia, morbid obesity Additional family history: Coronary artery disease, stroke, cancer, Alcohol use: Alcohol use Drug use: Denies recreational drugs Smoking status: Smoking status for patients 13 years old or old er: Never Smoker Medication/Allergy-Vaccine Hx Allergies: Coded Allergies: NSAIDS (Non-Steroidal Anti-Inflamma (Severe, PEPITO PHYLAXIS 12/22/20) aspirin (Severe, ANAPHYLAXIS 12/21/20) Review of Systems Constitutional: Denies: chills, fever. ENT: Denies: earache, nasal congestion, sore throat. Respiratory: Reports: FREEMAN (dyspnea on exe rtion). Denies: hemoptysis, parox nocturnal dyspnea , pleurisy, pleuritic pain, pneumonia, wheezing. Cardiovascular: Reports: chest pain, FREEMAN (dyspnea on exertion). Denies: palpitations. GI: Denies: abdominal pain, nausea, vomiting. : Denies: flank pain, frequency, hematuria. Musculoskeletal: Arthritis: Reports: right upper. Denies: left upper, left lower, right lower. Neuro: Denies: change in LOC, confusion, dizziness, foc al weakness, gait problem, headache, lightheaded, numbness, seizure, slurre d speech, spinning sensation, syncope, unable to speak, vision change. Psych: Denies: agitation, anxiety, auditory hallucinati on, change in mental status, confusion, delusional, depre ssion, homicidal ideation, hostile, insomnia, stress , suicidal ideation, visual hallucination. Physical Exam VS/I O Vital Signs: Date Time Temp Pulse Resp B/P B/P Pulse O2 O2 F low FiO2 Mean Ox Delivery Rate 12/22 1549 37.4 62 17 142/77 98.6 96 Room air 12/22 0938 37.0 68 18 134/70 98 24 hour I O ending at 0700: 12/22 0700 12/21 1900 Intake Total Output Total Balance Patient 133.9 kg Weight Weight Standing scale Measurement Method PATIENT WEIGHT: Weight (lb): 300 Weight (oz): 10.1 Weight (kg): 136.364 General appearance: alert, awake, pleasant, conv ersational Head/Eyes: atraumatic, EOMI, normocephalic Neck: non-tender, no JVD Cardiovascular: regular rate rhythm Respiratory: clear to auscultation, no distress Abdomen/GI: active bowel sounds, soft, non-tende r, no guarding, no rebound Extremities: decreased range of motion, moves al l 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, oriented X 3 Skin: dry, intact Psychiatry: normal judgment/insight Results Findings/Data: Laboratory Tests: 12/22 12/22 1543 0959 Chemistry POC Glucose (70 - 110 MG/DL) 166 H 134 H Radiology data: Recent Impressions: ULTRASOUND - DUP VEIN BUCK 12/22 1741 Report Impression - Status: SIGNED Entered: 12/22/2020 190 IMPRESSION: 1. The greater saphenous veins are patent bilate rally from the ankles to the saphenofemoral junctions. 2. Vein mapping as described above. SL: SG-H Impression By: [email or web address] - Kenyon Chapman M.D. ULTRASOUND - DUP EXTRACRANIAL BUCK 12/22 1745 Report Impression - Status: SIGNED Entered: 12/22/2020 1759 IMPRESSION: 1. RIGHT: Carotid artery stenosis estimated at l ess than 50% 2. LEFT: Carotid artery stenosis estimated at l ess than 50% End Impression Consensus panel Doppler US criteria for diagnosi s of ICA stenosis. Stenosis (%) ICA PSV (cm/sec) ICA/CCA ratio <50 <125 <2.0 50-69 125-230 2.0-4.0 >70 but less than >230 >4.0 near occlusion Near occlusion High, low, or undetectable Variab le SL: SG-H Impression By: [email or web address] - Kenyon Chapman M.D. Diagnosis, Assessment Plan Free Text DxA P Notes Free Text DxA P Notes: Assessment: 65-year-old male with past medical history as de scribed above presented for elective left heart catheterization. Patient und erwent the procedure well but needing coronary artery bypass graft due to mult iple vessel disease. 1. Status post left heart cath revealing multive ssel coronary artery disease 2. Chest pain/dyspnea on exertion 3. Hypertension 4. Diabetes mellitus type 2 5. Dyslipidemia statin 6. Morbid obesity Plan of care: Patient is being evaluated by cardiothoracic satya gical team Keep on telemetry Reconcile home medications DVT prophylaxis SCDs Repeat labs Keep on telemetry Glycemic control Pain control Preop work-up as per cardiothoracic surgical tea m Plan of care discussed with the patient, patient 's nurse, and Dr. Underwood. We thank Dr. Coronel allowing us to participate in the care of Mr. Marimar UnderwoodJae 12/27/20 7219: Attestations Physician Attestation Agree w/findings plan: I agree with the findings and plan as documented by DOROTEO Yu. Plan of care coordinated with DOROTEO Yu. Pertinent labs, Imaging, and behavioral consultant evaluations reviewed. 65-year-old male presented for elective left hea rt catheterization. He underwent the procedure well, but needing jamil ry artery bypass graft due to multiple vessel disease. He is being evaluated by cardiothoracic surgical team. We will keep him on telemetry. We will reconcil e home medications. We will order DVT prophylaxis with SCDs, repeat labs, gl ycemic control, and pain control. We will continue with preop work-up as per cardiothoracic surgical team. Electronically Signed by Junie Yu NP on 0 12/23/20 at 0305 RPT #:[id number] END OF REPORT 2020-12-22 18:55:00-00:00 [facility] ([facility]) History Physical - Adult REPORT#:[id number] REPORT STATUS: Signed DATE:12/22/20 TIME: 1854 PATIENT: SONYA MINAYA UNIT #: [id number] ROOM/BED: [place] [address] : 53 AGE: 65 SEX: M ATTEND: Jae Jaffe MD ADM AUTHOR: Junie Yu NP * ALL edits or amendments must be made on the [employer]/computer document * Junie Yu 12/22/20 1855: History of Present Illness HPI Chief complaint: Chest pain/dyspnea on exertion/status post left heart catheter revealing multivessel coronary artery disease HPI: 65-year-old male with past m edical history of coronary artery disease, diabetes mellitus type 2, hypertension, A. fib on Xarelto , obstructive sleep apnea was admitted for elective coronary angiogram which r evealed Multivessel coronary artery disease requiring cardiovascular surgery evaluation for possible CABG. Patient currently undergoing preop work- up for possible CABG. Patient notes he is symptoms that led to left heart cath intermit tent chest pain, and dyspnea with minimal exertion. Currently denies any of t he above symptoms. Vital signs are stable Patient has temperature of 99.3 History Additional medical history: Adam artery disease, hypertension, diabetes uriel itus type 2, dyslipidemia, morbid obesity Additional family history: Coronary artery disease, stroke, cancer, Alcohol use: Alcohol use Drug use: Denies recreational drugs Smoking status: Smoking status for patients 13 years old or old er: Never Smoker Medication/Allergy-Vaccine Hx Allergies: Coded Allergies: NSAIDS (Non-Steroidal Anti-Inflamma (Severe, PEPITO PHYLAXIS 12/22/20) aspirin (Severe, ANAPHYLAXIS 12/21/20) Review of Systems Constitutional: Denies: chills, fever. ENT: Denies: earache, nasal congestion, sore throat. Respiratory: Reports: FREEMAN (dyspnea on exe rtion). Denies: hemoptysis, parox nocturnal dyspnea , pleurisy, pleuritic pain, pneumonia, wheezing. Cardiovascular: Reports: chest pain, FREEMAN (dyspnea on exertion). Denies: palpitations. GI: Denies: abdominal pain, nausea, vomiting. : Denies: flank pain, frequency, hematuria. Musculoskeletal: Arthritis: Reports: right upper. Denies: left upper, left lower, right lower. Neuro: Denies: change in LOC, confusion, dizziness, foc al weakness, gait problem, headache, lightheaded, numbness, seizure, slurre d speech, spinning sensation, syncope, unable to speak, vision change. Psych: Denies: agitation, anxiety, auditory hallucinati on, change in mental status, confusion, delusional, depre ssion, homicidal ideation, hostile, insomnia, stress , suicidal ideation, visual hallucination. Physical Exam VS/I O Vital Signs: Date Time Temp Pulse Resp B/P B/P Pulse O2 O2 F low FiO2 Mean Ox Delivery Rate 12/22 1549 37.4 62 17 142/77 98.6 96 Room air 12/22 0938 37.0 68 18 134/70 98 24 hour I O ending at 0700: 12/22 0700 12/21 1900 Intake Total Output Total Balance Patient 133.9 kg Weight Weight Standing scale Measurement Method PATIENT WEIGHT: Weight (lb): 300 Weight (oz): 10.1 Weight (kg): 136.364 General appearance: alert, awake, pleasant, conv ersational Head/Eyes: atraumatic, EOMI, normocephalic Neck: non-tender, no JVD Cardiovascular: regular rate rhythm Respiratory: clear to auscultation, no distress Abdomen/GI: active bowel sounds, soft, non-tende r, no guarding, no rebound Extremities: decreased range of motion, moves al l 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, oriented X 3 Skin: dry, intact Psychiatry: normal judgment/insight Results Findings/Data: Laboratory Tests: 12/22 12/22 1543 0959 Chemistry POC Glucose (70 - 110 MG/DL) 166 H 134 H Radiology data: Recent Impressions: ULTRASOUND - DUP VEIN BUCK 12/22 1741 Report Impression - Status: SIGNED Entered: 12/22/2020 174 IMPRESSION: 1. The greater saphenous veins are patent bilate rally from the ankles to the saphenofemoral junctions. 2. Vein mapping as described above. SL: SG-H Impression By: Solo Chapman M.D. ULTRASOUND - DUP EXTRACRANIAL BUCK 12/22 1745 Report Impression - Status: SIGNED Entered: 12/22/2020 175 IMPRESSION: 1. RIGHT: Carotid artery stenosis estimated at l ess than 50% 2. LEFT: Carotid artery stenosis estimated at le ss than 50% End Impression Consensus panel Doppler US criteria for diagnosi s of ICA stenosis. Stenosis (%) ICA PSV (cm/sec) ICA/CCA ratio <50 <125 <2.0 50-69 125-230 2.0-4.0 >70 but less than >230 >4.0 near occlusion Near occlusion High, low, or undetectable Variab le SL: SG-H Impression By: Solo Chapman M.D. Diagnosis, Assessment Plan Free Text DxA P Notes Free Text DxA P Notes: Assessment: 65-year-old male with past medical history as de scribed above presented for elective left heart catheterization. Patient und erwent the procedure well but needing coronary artery bypass graft due to mult iple vessel disease. 1. Status post left heart cath revealing multive ssel coronary artery disease 2. Chest pain/dyspnea on exertion 3. Hypertension 4. Diabetes mellitus type 2 5. Dyslipidemia statin 6. Morbid obesity Plan of care: Patient is being evaluated by cardiothoracic satya gical team Keep on telemetry Reconcile home medications DVT prophylaxis SCDs Repeat labs Keep on telemetry Glycemic control Pain control Preop work-up as per cardiothoracic surgical tea m Plan of care discussed with the patient, patient 's nurse, and Dr. Underwood. We thank Dr. Coronel allowing us to participate in the care of Mr. Marimar UnderwoodJae 12/27/20 1965: Attestations Physician Attestation Agree w/findings plan: I agree with the findings and plan as documented by DOROTEO Yu. Plan of care coordinated with DOROTEO Yu. Pertinent labs, Imaging, and behavioral consultant evaluations reviewed. 65-year-old male presented for elective left hea rt catheterization. He underwent the procedure well, but needing jamil ry artery bypass graft due to multiple vessel disease. He is being evaluated by cardiothoracic surgical team. We will keep him on telemetry. We will reconcil e home medications. We will order DVT prophylaxis with SCDs, repeat labs, gl ycemic control, and pain control. We will continue with preop work-up as per cardiothoracic surgical team. Electronically Signed by Junie Yu NP on 0 12/23/20 at 0305 Electronically Signed by Jae Jaffe MD o n 12/27/20 at 2318 RPT #:[id number] END OF REPORT 2020-12-22 18:55:00-00:00 [facility] ([facility]) History Physical - Adult REPORT#:[id number] REPORT STATUS: Signed DATE:12/22/20 TIME: 1854 PATIENT: SONYA MINAYA UNIT #: [id number] ROOM/BED: [place] [address] : 53 AGE: 65 SEX: M ATTEND: Jae Jaffe MD ADM AUTHOR: Junie Yu MEDICINE ASSISTANT * ALL edits or amendments must be made on the [employer]/computer document * History of Present Illness HPI Chief complaint: Chest pain/dyspnea on exertion/status post left heart catheter revealing multivessel coronary artery disease HPI: 65-year-old male with past m edical history of coronary artery disease, diabetes mellitus type 2, hypertension, A. fib on Xarelto , obstructive sleep apnea was admitted for elective coronary angiogram which r evealed Multivessel coronary artery disease requiring cardiovascular surgery evaluation for possible CABG. Patient currently undergoing preop work- up for possible CABG. Patient notes he is symptoms that led to left heart cath intermit tent chest pain, and dyspnea with minimal exertion. Currently denies any of t he above symptoms. Vital signs are stable Patient has temperature of 99.3 History Additional medical history: Adam artery disease, hypertension, diabetes uriel itus type 2, dyslipidemia, morbid obesity Additional family history: Coronary artery disease, stroke, cancer, Alcohol use: Alcohol use Drug use: Denies recreational drugs Smoking status: Smoking status for patients 13 years old or old er: Never Smoker Medication/Allergy-Vaccine Hx Allergies: Coded Allergies: NSAIDS (Non-Steroidal Anti-Inflamma (Severe, PEPITO PHYLAXIS 12/22/20) aspirin (Severe, ANAPHYLAXIS 12/21/20) Review of Systems Constitutional: Denies: chills, fever. ENT: Denies: earache, nasal congestion, sore throat. Respiratory: Reports: FREEMAN (dyspnea on exe rtion). Denies: hemoptysis, parox nocturnal dyspnea , pleurisy, pleuritic pain, pneumonia, wheezing. Cardiovascular: Reports: chest pain, FREEMAN (dyspnea on exertion). Denies: palpitations. GI: Denies: abdominal pain, nausea, vomiting. : Denies: flank pain, frequency, hematuria. Musculoskeletal: Arthritis: Reports: right upper. Denies: left upper, left lower, right lower. Neuro: Denies: change in LOC, confusion, dizziness, foc al weakness, gait problem, headache, lightheaded, numbness, seizure, slurre d speech, spinning sensation, syncope, unable to speak, vision change. Psych: Denies: agitation, anxiety, auditory hallucinati on, change in mental status, confusion, delusional, depre ssion, homicidal ideation, hostile, insomnia, stress , suicidal ideation, visual hallucination. Physical Exam VS/I O Vital Signs: Date Time Temp Pulse Resp B/P B/P Pulse O2 O2 F low FiO2 Mean Ox Delivery Rate 12/22 1549 37.4 62 17 142/77 98.6 96 Room air 12/22 0938 37.0 68 18 134/70 98 24 hour I O ending at 0700: 12/22 0700 12/21 1900 Intake Total Output Total Balance Patient 133.9 kg Weight Weight Standing scale Measurement Method PATIENT WEIGHT: Weight (lb): 300 Weight (oz): 10.1 Weight (kg): 136.364 General appearance: alert, awake, pleasant, conv ersational Head/Eyes: atraumatic, EOMI, normocephalic Neck: non-tender, no JVD Cardiovascular: regular rate rhythm Respiratory: clear to auscultation, no distress Abdomen/GI: active bowel sounds, soft, non-tende r, no guarding, no rebound Extremities: decreased range of motion, moves al l 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, oriented X 3 Skin: dry, intact Psychiatry: normal judgment/insight Results Findings/Data: Laboratory Tests: 12/22 12/22 1543 0959 Chemistry POC Glucose (70 - 110 MG/DL) 166 H 134 H Radiology data: Recent Impressions: ULTRASOUND - DUP VEIN BUCK 12/22 1741 Report Impression - Status: SIGNED Entered: 12/22/2020 1747 IMPRESSION: 1. The greater saphenous veins are patent bilate rally from the ankles to the saphenofemoral junctions. 2. Vein mapping as described above. SL: SG-H Impression By: Solo Chapman M.D. ULTRASOUND - DUP EXTRACRANIAL BUCK 12/22 1745 Report Impression - Status: SIGNED Entered: 12/22/2020 4721 IMPRESSION: 1. RIGHT: Carotid artery stenosis estimated at l ess than 50% 2. LEFT: Carotid artery stenosis estimated at le ss than 50% End Impression Consensus panel Doppler US criteria for diagnosi s of ICA stenosis. Stenosis (%) ICA PSV (cm/sec) ICA/CCA ratio <50 <125 <2.0 50-69 125-230 2.0-4.0 >70 but less than >230 >4.0 near occlusion Near occlusion High, low, or undetectable Variab le SL: SG-H Impression By: Solo Chapman M.D. Diagnosis, Assessment Plan Free Text DxA P Notes Free Text DxA P Notes: Assessment: 65-year-old male with past medical history as de scribed above presented for elective left heart catheterization. Patient und erwent the procedure well but needing coronary artery bypass graft due to mult iple vessel disease. 1. Status post left heart cath revealing multive ssel coronary artery disease 2. Chest pain/dyspnea on exertion 3. Hypertension 4. Diabetes mellitus type 2 5. Dyslipidemia statin 6. Morbid obesity Plan of care: Patient is being evaluated by cardiothoracic satya gical team Keep on telemetry Reconcile home medications DVT prophylaxis SCDs Repeat labs Keep on telemetry Glycemic control Pain control Preop work-up as per cardiothoracic surgical tea m Plan of care discussed with the patient, patient 's nurse, and Dr. Underwood. We thank Dr. Coronel allowing us to participate in the care of Mr. Minaya Electronically Signed by Junie Yu MEDICINE ASSISTANT on 0 12/23/20 at 0305 RPT #:[id number] END OF REPORT 2020-12-22 18:04:00-00:00 [id number] [place] [address] PATIENT NAME: SONYA MINAYA ADMIT DATE: 1 ACCOUNT NO: [id number] ROOM NO: [facility] [place] AGE: 65 REPORT TYPE: CONSULTATION REPORT SEX: M ADMITTING PHYSICIAN:Jae Jaffe MD ATTENDING PHYSICIAN:Jae Jaffe MD CONSULTATION DATE: 12/22/2020 CONSULTING PHYSICIAN: Ian Coronel MD CARDIOLOGY CONSULTATION REQUESTING PHYSICIAN: Jae Worthington MD HISTORY OF PRESENT ILLNESS: Mr. Minaya is a 65-year-old pleasant gentleman with morbid obesity, history of s leep apnea, hypercholesterolemia, diabetes mellitus and hypertension, who was consulted after he und erwent heart catheterization revealed significant left ma in stenosis and 3-vessel disease. The patient is to undergo coronary artery bypass surgery by Dr. Roque vázquez. PAST MEDICAL HISTORY: Otherwise as above. The justino miranda was seen by me in the office for worsening new onset exertional angina and we decided not to do a stress test. We did an echoc ardiogram ____ and scheduled him for a direct heart cardiac catheterization with results of which sh own above. PAST MEDICAL HISTORY: Otherwise as above. SOCIAL HISTORY: He is a nonsmoker. FAMILY HISTORY: Positive for premature coronary artery disease. MEDICATIONS: As charted. PHYSICAL EXAMINATION: VITAL SIGNS: Blood pressure is 142/77; heart rat e is 60 beats per minute, regular; respiratory rate is 18; and temperature 98.6. HEENT: No jugular venous distention. CHEST: Decreased breath in all lung peterson. CARDIOVASCULAR: Apical impulse not palpable. S1 and S2 normal. ABDOMEN: Benign. EXTREMITIES: Show no edema. DIAGNOSTIC STUDIES: EKG shows normal sinus with nonspecific ST changes. SIGNIFICANT LABORATORY TESTS: Troponin I was neg ative. IMPRESSION: 1. Chest pain: Unstable angina, worsening in int ensity and severity. 2. Left main and 3-vessel disease, needs bypass. PATIENT NAME: SONYA MINAYA 0927 3. Hypertension, well controlled. 4. Obstructive sleep apnea. 5. Morbid obesity. 6. Diabetes mellitus. RECOMMENDATIONS: 1. Okay to proceed with surgery. 2. As per Dr. Hernadez regarding when to do the b ypass. 3. We will hold off on the Xarelto for now. Dictated By: Ian Coronel MD WT: CON:LUIS/MOE/SUSY Conf#: [id number]/DID#: [id number] Authenticated by Ian Coronel MD On 12/23/2020 0 4:51:43 PM Electronically Signed by Ian Coronel MD on 10/14 at 1652 PATIENT NAME: SONYA MINAYA 0927 2020-12-22 15:50:00-00:00 [facility] Clinical Note REPORT#:[id number] REPORT STATUS: Signed DATE:12/22/20 TIME: 1550 PATIENT: SONYA MINAYA UNIT #: [id number] ROOM/BED: 3342-1 : 53 AGE: 65 SEX: M ATTEND: Jae Jaffe MD ADM AUTHOR: Junie Yu MEDICINE ASSISTANT * ALL edits or amendments must be made on the [employer] document * Clinical Note Note: clinical data reviewed Electronically Signed by Junie Yu NP on 0 12/22/20 at 1551 RPT #:[id number] END OF REPORT 2020-12-22 15:23:00-00:00 [facility] ([facility]) Cardiothoracic Surgery Consult REPORT#:[id number] REPORT STATUS: Signed DATE:12/22/20 TIME: 152 PATIENT: SONYA MINAYA UNIT #: [id number] ROOM/BED: [place] [address] : 53 AGE: 65 SEX: M ATTEND: Jae Jaffe MD ADM AUTHOR: Kevin Hinkle NP * ALL edits or amendments must be made on the [employer] document * Kevin Hinkle 12/22/20 1523: History of Present Illness HPI Chief complaint: Shortness of breath Tachycardia Chest pain PCP: PCP: Avel Banerjee MD Requesting Clinician HPI: Mr. Sonya Minaya is a 65-year-old ma le with past medical history significant for diabetes, hypertension, CAD, A. fib(Xarelto), and sleep apnea who has been experiencing shortness of breath an d increased heart rate while walking only short distances. Patient also has b een having intermittent chest pain with one severe episode that woke him from sleep. 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 Cardiac work-up includ ed an echocardiogram which revealed EF 55 and mild TR. Patient underwent cardiac cathet erization today which demonstrated multivessel cor onary artery disease. CV surgery has been consulted to evaluate the need for CABG Informant/Historian: Patient Previous records History Additional Medical History: Diabetes Hypertension CAD A. fib Sleep apnea Additional Family History Noncontributory Alcohol Use Denies EtOH use Drug Use Denies recreational drugs Smoking status: Smoking status for patients 13 years old or old er: Former Smoker Other Social History Good social support Allergies: Coded Allergies: NSAIDS (Non-Steroidal Anti-Inflamma (Severe, PEPITO PHYLAXIS 12/22/20) aspirin (Severe, ANAPHYLAXIS 12/21/20) Occupation Retired Ambulatory Status Independent Review of Systems Review of Systems Constitutional: Denies: chills, fatigue, fever. Skin: Denies: rash, swelling. Eyes: Denies: redness, discharge. ENT: Denies: earache, sore throat. Respiratory: Denies: SOB, wheezing. Cardiovascular: Denies: chest pain, FREEMAN (dyspnea on exertion). GI: Denies: diarrhea, nausea, vomiting. : Denies: dysuria, hematuria. Musculoskeletal: Denies: extremity pain, extremity swelling. Objective Physical Exam VS/I O: Last Documented: Result Date Time Pulse Ox 96 12/22 154 B/P 142/77 12/22 1549 B/P Mean 98.6 12/22 1549 O2 Delivery Room air 12/22 1548 Temp 99.3 12/22 154 Pulse 62 12/22 1549 Resp 17 12/22 154 24 hour I O ending at 0700: 12/22 0700 12/21 1900 Intake Total Output Total Balance Patient 295 lb Weight Weight Standing scale Measurement Method PATIENT WEIGHT: Weight (lb): 300 Weight (oz): 10.1 Weight (kg): 136.364 General appearance: alert, awake, oriented HEENT: pupils reactive to light, sclera clear Cardiovascular: normal heart sounds, regular rat e rhythm Respiratory: aerating well, clear to auscultatio n Abdomen: soft, non-tender Extremities: dry, moves all Musculoskeletal: full range of motion 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, oriented X 3 Skin: dry, intact Diagnosis, Assessment Plan Free Text A P: Mr. Sonya Minaya is a 65-year-old ma le with past medical history significant for diabetes, hypertension, CAD, A. fib(Xarelto), and sleep apnea who has been experiencing shortness of breath an d increased heart rate while walking only short distances. Patient also has b een having intermittent chest pain with one severe episode that woke him from sleep. 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 Cardiac work-up includ ed an echocardiogram which revealed EF 55 and mild TR. Patient underwent cardiac cathet erization today which demonstrated multivessel cor onary artery disease. CV surgery has been consulted to evaluate the need for CABG Patient seen and examined by Dr. Hernadez. Angio films reviewed. Findings of the angio were explained in detail to the patien t, including diagram. Patient will benefit from surgical revascularization. Th e logistics of the surgery including all risks (STS), benefits, alt ernatives, and potential complications were discussed at length with patient and his wi fe. He acknowledges understanding and would like to proceed with satya matta. Patient was on Xarelto with last dose taken on Wednesday 12/20. Preoperativ e diagnostics have been initiated in preparation for surgery tomorrow 12/23. Plan Noncontrast CT chest Carotid ultrasound Vein mapping and marking UA, MRSA Calculate STS (see clinical note) Preop for surgery Paresh Hernadez 01/09/21 1343: Attestations Physician Attestation Agree w/findings plan: I have seen and examined Mr. Minaya. I agree wit h the findings and plan as documented by [DAIN Parry. Briefly, 65-year-old gentleman with severe tripl e-vessel coronary artery disease. Patient will benefit from surgical jose rafael scularization. I had a long chat with the patient, explained to him the antoine ogram finding and need for surgical revascularization. I have discussed wit h him the procedure the risk involved, benefits, alternatives, and STS risk s core. Patient has agreed for surgery, I am making arrangement for Mr. Minaya to have coronary artery bypass graft surgery in the near future Electronically Signed by Kevin Hinkle NP on at 1923 RPT #:[id number] END OF REPORT 2020-12-22 15:23:00-00:00 [facility] Cardiothoracic Surgery Consult REPORT#:[id number] REPORT STATUS: Signed DATE:12/22/20 TIME: 1522 PATIENT: SONYA MINAYA UNIT #: [id number] ROOM/BED: [place] [address] : 53 AGE: 65 SEX: M ATTEND: Jae Jaffe MD ADM AUTHOR: Kevin Hinkle NP * ALL edits or amendments must be made on the [employer]/computer document * Kevin Hinkle 12/22/20 1523: History of Present Illness HPI Chief complaint: Shortness of breath Tachycardia Chest pain PCP: PCP: Avel Banerjee MD Requesting Clinician HPI: Mr. Sonya Minaya is a 65-year-old ma le with past medical history significant for diabetes, hypertension, CAD, A. fib(Xarelto), and sleep apnea who has been experiencing shortness of breath an d increased heart rate while walking only short distances. Patient also has b een having intermittent chest pain with one severe episode that woke him from sleep. 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 Cardiac work-up includ ed an echocardiogram which revealed EF 55 and mild TR. Patient underwent cardiac cathet erization today which demonstrated multivessel cor onary artery disease. CV surgery has been consulted to evaluate the need for CABG Informant/Historian: Patient Previous records History Additional Medical History: Diabetes Hypertension CAD A. fib Sleep apnea Additional Family History Noncontributory Alcohol Use Denies EtOH use Drug Use Denies recreational drugs Smoking status: Smoking status for patients 13 years old or old er: Former Smoker Other Social History Good social support Allergies: Coded Allergies: NSAIDS (Non-Steroidal Anti-Inflamma (Severe, PEPITO PHYLAXIS 12/22/20) aspirin (Severe, ANAPHYLAXIS 12/21/20) Occupation Retired Ambulatory Status Independent Review of Systems Review of Systems Constitutional: Denies: chills, fatigue, fever. Skin: Denies: rash, swelling. Eyes: Denies: redness, discharge. ENT: Denies: earache, sore throat. Respiratory: Denies: SOB, wheezing. Cardiovascular: Denies: chest pain, FREEMAN (dyspnea on exertion). GI: Denies: diarrhea, nausea, vomiting. : Denies: dysuria, hematuria. Musculoskeletal: Denies: extremity pain, extremity swelling. Objective Physical Exam VS/I O: Last Documented: Result Date Time Pulse Ox 96 12/22 1549 B/P 142/77 12/22 1549 B/P Mean 98.6 12/22 1549 O2 Delivery Room air 12/22 154 Temp 99.3 12/22 1549 Pulse 62 12/22 1549 Resp 17 12/22 1549 24 hour I O ending at 0700: 12/22 0700 12/21 1900 Intake Total Output Total Balance Patient 295 lb Weight Weight Standing scale Measurement Method PATIENT WEIGHT: Weight (lb): 300 Weight (oz): 10.1 Weight (kg): 136.364 General appearance: alert, awake, oriented HEENT: pupils reactive to light, sclera clear Cardiovascular: normal heart sounds, regular rat e rhythm Respiratory: aerating well, clear to auscultatio n Abdomen: soft, non-tender Extremities: dry, moves all Musculoskeletal: full range of motion 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, oriented X 3 Skin: dry, intact Diagnosis, Assessment Plan Free Text A P: Mr. Sonya Minaya is a 65-year-old ma le with past medical history significant for diabetes, hypertension, CAD, A. fib(Xarelto), and sleep apnea who has been experiencing shortness of breath an d increased heart rate while walking only short distances. Patient also has b een having intermittent chest pain with one severe episode that woke him from sleep. 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 Cardiac work-up includ ed an echocardiogram which revealed EF 55 and mild TR. Patient underwent cardiac cathet erization today which demonstrated multivessel cor onary artery disease. CV surgery has been consulted to evaluate the need for CABG Patient seen and examined by Dr. Hernadez. Angio films reviewed. Findings of the angio were explained in detail to the patien t, including diagram. Patient will benefit from surgical revascularization. Th e logistics of the surgery including all risks (STS), benefits, alt ernatives, and potential complications were discussed at length with patient and his wi fe. He acknowledges understanding and would like to proceed with satya matta. Patient was on Xarelto with last dose taken on Wednesday 12/20. Preoperativ e diagnostics have been initiated in preparation for surgery tomorrow 12/23. Plan Noncontrast CT chest Carotid ultrasound Vein mapping and marking UA, MRSA Calculate STS (see clinical note) Preop for surgery Paresh Hernadez 01/09/21 1343: Attestations Physician Attestation Agree w/findings plan: I have seen and examined Mr. Minaya. I agree wit h the findings and plan as documented by [Kevin Hinkle, LULP. Briefly, 65-year-old gentleman with severe tripl e-vessel coronary artery disease. Patient will benefit from surgical jose rafael scularization. I had a long chat with the patient, explained to him the antoine ogram finding and need for surgical revascularization. I have discussed wit h him the procedure the risk involved, benefits, alternatives, and STS risk s core. Patient has agreed for surgery, I am making arrangement for Mr. Minaya to have coronary artery bypass graft surgery in the near future Electronically Signed by Kevin Hinkle NP on at 1923 at 1400 RPT #:[id number] END OF REPORT 2020-12-22 15:23:00-00:00 [facility] ([facility]) Cardiothoracic Surgery Consult REPORT#:[id number] REPORT STATUS: Signed DATE:12/22/20 TIME: 1523 PATIENT: SONYA MINAYA UNIT #: [id number] ROOM/BED: [place] [address] : 53 AGE: 65 SEX: M ATTEND: Jae Jaffe MD ADM AUTHOR: Keivn Hinkle NP * ALL edits or amendments must be made on the [employer]/computer document * History of Present Illness HPI Chief complaint: Shortness of breath Tachycardia Chest pain PCP: PCP: Avel Banerjee MD Requesting Clinician HPI: Mr. Sonya Minaya is a 65-year-old ma le with past medical history significant for diabetes, hypertension, CAD, A. fib(Xarelto), and sleep apnea who has been experiencing shortness of breath an d increased heart rate while walking only short distances. Patient also has b een having intermittent chest pain with one severe episode that woke him from sleep. 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 Cardiac work-up includ ed an echocardiogram which revealed EF 55 and mild TR. Patient underwent cardiac cathet erization today which demonstrated multivessel cor onary artery disease. CV surgery has been consulted to evaluate the need for CABG Informant/Historian: Patient Previous records History Additional Medical History: Diabetes Hypertension CAD A. fib Sleep apnea Additional Family History Noncontributory Alcohol Use Denies EtOH use Drug Use Denies recreational drugs Smoking status: Smoking status for patients 13 years old or old er: Former Smoker Other Social History Good social support Allergies: Coded Allergies: NSAIDS (Non-Steroidal Anti-Inflamma (Severe, PEPITO PHYLAXIS 12/22/20) aspirin (Severe, ANAPHYLAXIS 12/21/20) Occupation Retired Ambulatory Status Independent Review of Systems Review of Systems Constitutional: Denies: chills, fatigue, fever. Skin: Denies: rash, swelling. Eyes: Denies: redness, discharge. ENT: Denies: earache, sore throat. Respiratory: Denies: SOB, wheezing. Cardiovascular: Denies: chest pain, FREEMAN (dyspnea on exertion). GI: Denies: diarrhea, nausea, vomiting. : Denies: dysuria, hematuria. Musculoskeletal: Denies: extremity pain, extremity swelling. Objective Physical Exam VS/I O: Last Documented: Result Date Time Pulse Ox 96 12/22 154 B/P 142/77 12/22 1549 B/P Mean 98.6 12/22 154 O2 Delivery Room air 12/22 1548 Temp 99.3 12/22 154 Pulse 62 12/22 1549 Resp 17 12/22 154 24 hour I O ending at 0700: 12/22 0700 12/21 1900 Intake Total Output Total Balance Patient 295 lb Weight Weight Standing scale Measurement Method PATIENT WEIGHT: Weight (lb): 300 Weight (oz): 10.1 Weight (kg): 136.364 General appearance: alert, awake, oriented HEENT: pupils reactive to light, sclera clear Cardiovascular: normal heart sounds, regular rat e rhythm Respiratory: aerating well, clear to auscultatio n Abdomen: soft, non-tender Extremities: dry, moves all Musculoskeletal: full range of motion 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, oriented X 3 Skin: dry, intact Diagnosis, Assessment Plan Free Text A P: Mr. Sonya Minaya is a 65-year-old ma le with past medical history significant for diabetes, hypertension, CAD, A. fib(Xarelto), and sleep apnea who has been experiencing shortness of breath an d increased heart rate while walking only short distances. Patient also has b een having intermittent chest pain with one severe episode that woke him from sleep. 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 Cardiac work-up includ ed an echocardiogram which revealed EF 55 and mild TR. Patient underwent cardiac cathet erization today which demonstrated multivessel cor onary artery disease. CV surgery has been consulted to evaluate the need for CABG Patient seen and examined by Dr. Hernadez. Angio films reviewed. Findings of the angio were explained in detail to the patien t, including diagram. Patient will benefit from surgical revascularization. Th e logistics of the surgery including all risks (STS), benefits, alt ernatives, and potential complications were discussed at length with patient and his wi fe. He acknowledges understanding and would like to proceed with satya matta. Patient was on Xarelto with last dose taken on Wednesday 12/20. Preoperativ e diagnostics have been initiated in preparation for surgery tomorrow 12/23. Plan Noncontrast CT chest Carotid ultrasound Vein mapping and marking UA, MRSA Calculate STS (see clinical note) Preop for surgery Electronically Signed by Kevin Hinkle MEDICINE ASSISTANT on at 1923 RPT #:[id number] END OF REPORT 2020-12-22 12:57:00-00:00 [id number] [place] [address] PATIENT NAME: SONYA MINAYA ADMIT DATE: 1 ACCOUNT NO: [id number] ROOM NO: [facility] [place] AGE: 65 REPORT TYPE: CARDIAC CATHETERIZATION REPORT SEX: M ADMITTING PHYSICIAN:Jae Jaffe MD ATTENDING PHYSICIAN:Jae Jaffe MD PROCEDURE DATE: 12/22/2020 INDICATION: Unstable angina. CLINICAL HISTORY: A 65-year-old male patient, wh o has progressive angina. He has obesity, strong family history of premature coronary artery disease. The patient was offered the option of coronary angio graphy and possible PCI. He understood the risks, indications, and b enefits as well as alternatives of the procedure including, but not limited to risk of , [place], CVA, vascular and renal injury, and was willing to proceed. PROCEDURES: 1. A 6-Rwandan right radial access. 2. Selective left coronary angiography. 3. Selective right coronary angiography. COMPLICATIONS: None. ESTIMATED BLOOD LOSS: Minimal. ANESTHESIA: Local anesthesia with conscious clay tion. DESCRIPTION OF PROCEDURE: Right groin was preppe d and draped in usual sterile fashion. Local anesthesia was administered and 6 -Rwandan sheath was placed in right radial artery. Radial cocktail was given, 2.5 mg of verapamil and 5000 international units of heparin. TIG catheter was advanced, did selective left coronary angiography and right coronary angiogra phy. No complications. Findings as below. Right coronary artery is a m edium-sized codominant vessel, has multiple areas of 90% to 95% stenosis. Left main: There is an area of bifurcational, fo arvin severe distal stenosis about 70% with haziness right at the takeoff of the LAD and diagonal. LAD has just mild disease. Diagonal 1 has 50% stenosis. Left circumflex, large codominant vessel with just mild stenosis. IMPRESSION: Three-vessel coronary artery disease with a tight hazy distal left main. PLAN: Cardiothoracic surgical evaluation for pos sible ____. Dictated By: Zara Kumari MD PATIENT NAME: SONYA MINAYA 0927 WT: CATH:TATO/MARC./NTS Conf#: [id number]/DID#: [id number] Authenticated by Zara Kumari MD On 09/2020 11:40:04 AM at 1140 PATIENT NAME: SONYA MINAYA 0927 2020-12-22 11:17:00-00:00 [facility]L [facility]) Cath Post Proc-Full REPORT#:[id number] REPORT STATUS: Signed DATE:12/22/20 TIME: 1117 PATIENT: SONYA MINAYA UNIT #: [id number] ROOM/BED: [place] [address] : 53 AGE: 65 SEX: M ATTEND: Trevon Kumari MD ADM AUTHOR: Jacy Hernandez NP * ALL edits or amendments must be made on the [employer]/computer document * Pre-Procedure Presentation 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 Cath Procedure Cath Procedure Start date: 12/22/20 Start time: 1115 Pre-procedure diagnosis: Angina Post-procedure diagnosis: CAD Procedure performed: diag coronary angiography, left heart cath Performed by: Dr Zara Kumari Railroad Wheels And Axles Inspector(s): none Procedure details: Left heart cath/Coronary angiogram performed Cor Angio: LM 70% distal RCA 90% Impression: Multivessel CAD Plan: Consult CTS for CABG Carotid doppler Ultrasound duplex for vein mapping CT chest w/o contrast Findings: Left heart cath/Coronary angiogram performed--Mu ltivessel CAD Complications: none Anesthesia type: local, moderate sedation Mod. sedation provided by me: yes Independent trained observer present monitored p t's resp. to the sedation no Estimated blood loss in ml's: 5 Access site closure: TR band Disposition: cardiac recovery unit Specimens removed/altered: none Implants: none at 1147 RPT #:[id number] END OF REPORT 2020-12-22 11:17:00-00:00 [facility] ([facility]) Cath Post Proc-Full REPORT#:[id number] REPORT STATUS: Signed DATE:12/22/20 TIME: 111 PATIENT: SONYA MINAYA UNIT #: [id number] ROOM/BED: [place] [address] : 53 AGE: 65 SEX: M ATTEND: Jae Jaffe MD ADM AUTHOR: Jacy Hernandez NP * ALL edits or amendments must be made on the [employer]/computer document * Pre-Procedure Presentation 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 Cath Procedure Cath Procedure Start date: 12/22/20 Start time: 111 Pre-procedure diagnosis: Angina Post-procedure diagnosis: CAD Procedure performed: diag coronary angiography, left heart cath Performed by: Dr Zara Kumari Railroad Wheels And Axles Inspector(s): none Procedure details: Left heart cath/Coronary angiogram performed Cor Angio: LM 70% distal RCA 90% Impression: Multivessel CAD Plan: Consult CTS for CABG Carotid doppler Ultrasound duplex for vein mapping CT chest w/o contrast Findings: Left heart cath/Coronary angiogram performed--Mu ltivessel CAD Complications: none Anesthesia type: local, moderate sedation Mod. sedation provided by me: yes Independent trained observer present monitored p t's resp. to the sedation no Estimated blood loss in ml's: 5 Access site closure: TR band Disposition: cardiac recovery unit Specimens removed/altered: none Implants: none at 1147 at 1159 RPT #:[id number] END OF REPORT
[2023-02-25] MEDS ORDERED: ACETAMINOPHEN 500 MG TAB ONE (08:59)
[2023-02-25 09:04] LABS: Specific Gravity 1.013 (1.005-1.030); Urine Bacteria >50 /HPF (<20); Urine Bilirubin NEGATIVE (Negative); Urine Blood Trace (Negative); Urine Clarity Clear (Clear); Urine Color Colorless (Yellow); Urine Glucose 4+ (Over) (Negative); Urine Protein NEGATIVE (Negative); Urine Urobilinogen Normal (Normal)
[2023-02-25 09:38] LABS: Absolute Lymphocytes (CBC) 0.3 K/uL (0.7-4.9); Hematocrit 37.8 % (39.6-49.0); Lymphocytes % 3.7 % (15.3-44.8); MCV 83.4 fL (80-100); MPV 8.4 fL (7.6-11.3); RBC Red Blood Cell Count 4.53 M/uL (4.33-5.43)
[2023-02-25 09:41] LABS: Protime INR 1.15
[2023-02-25 09:53] LABS: Albumin 3.1 g/dL (3.4-5.0); Bilirubin Total 0.7 mg/dL (0.2-1.0); Potassium 2.8 mEq/L (3.5-5.1); Protein, Total 6.9 g/dL (6.4-8.2)
[2023-02-25 10:00] LABS: Blood Morphology Comment NOT SEEN (NOT SEEN); Platelet Estimate ADEQ; White Blood Cell Scan OK (OK)
--- NOTE | 2023-02-25 10:00 | RAD REPORT ---
EXAM DESCRIPTION: Pia Single View02/25/2023 9:00 am CLINICAL HISTORY: FEVER COMPARISON: No comparisons TECHNIQUE: Portable AP view of the chest. FINDINGS: Decreased inspiratory effort limits evaluation. Retrocardiac airspace opacification, could be related to atelectasis, early airspace disease, or prominent epicardial fat pad. No pneumothorax or effusion. The cardiomediastinal contours are unremarkable. IMPRESSION: Retrocardiac airspace opacification, could be related to atelectasis, early airspace dis ease, or prominent epicardial fat pad.
[2023-02-25] MEDS ORDERED: CEFTRIAXONE 1000 MG/VIAL ONE (10:03)
[2023-02-25] MEDS ORDERED: POTASSIUM 25 MEQ EFFERV TAB ONE (10:15)
[2023-02-25] MEDS ORDERED: NA CHLORIDE 0.9% 500 ML ONE (10:15)
[2023-02-25] MEDS ORDERED: KCL 20 MEQ/100 mL IVPB 100 ML IV ONE (10:20)
--- NOTE | 2023-02-25 10:22 | EDPHYS ---
Physician Documentation [facility] Name: Truong Thompson Jr Age: 67 yrs Sex: Male : 1955 Arrival Date: 02/25/2023 Time: 08:15 Bed 4 Private MD: ED Physician Chapincito Wright HPI: 02/25 08:22 This 67 yrs old Male presents to ER via EMS with complaints of Altered Mental Status, jh7 Urinary Frequency, Fever. 08:22 The patient presents with confusion. jh7 08:22 Onset: The symptoms/episode began/occurred this morning. Possible causes: sepsis, the jh7 patient has had a history of a fever, reportedly as high as 103 degrees Fahrenheit, Urinary frequency, low O2 sat. Associated signs and symptoms: Pertinent positives: confusion, weakness, fever, Pertinent negatives: abdominal pain, chest pain, diarrhea, headache, numbness, shortness of breath, tingling, vomiting. 67-year-old male presents with fever of 103, weakness, altered mental status, and urinary frequency. EMS reports O2 sat of 90% on room air and 96% on 4 L of oxygen. Reports that patient is oriented to person and situation. He has a history of hypertension, diabetes, and cardiac bypass 2 years ago.. Historical: - Allergies: 08:22 No Known Allergies; ll3 - PMHx: 08:22 Hypertensive disorder; Diabetes mellitus; ll3 - Immunization history:: Adult Immunizations up to date. - Social history:: Smoking status: Patient/guardian denies using tobacco, the patient reports quitting approximately 15 years ago. ROS: 08:22 Eyes: Negative for injury, pain, redness, and discharge, ENT: Negative for injury, jh7 pain, and discharge, Neck: Negative for injury, pain, and swelling, Cardiovascular: Negative for chest pain, palpitations, and edema, Respiratory: Negative for shortness of breath, cough, wheezing, and pleuritic chest pain, Abdomen/GI: Negative for abdominal pain, nausea, vomiting, diarrhea, and constipation, Back: Negative for injury and pain, MS/Extremity: Negative for injury and deformity, Skin: Negative for injury, rash, and discoloration. 08:22 Constitutional: Positive for fatigue, fever. 08:22 : Positive for urinary frequency, Negative for injury or acute deformity. 08:22 Neuro: Positive for altered mental status, weakness, Negative for headache, seizure activity, speech changes, syncope, visual changes. 08:22 All other systems are negative. Exam: 08:22 Constitutional: This is a well developed, well nourished patient who is awake, alert, jh7 and in no acute distress. Head/Face: Normocephalic, atraumatic. Eyes: Pupils equal round and reactive to light, extra-ocular motions intact. Lids and lashes normal. Conjunctiva and sclera are non-icteric and not injected. Cornea within normal limits. Periorbital areas with no swelling, redness, or edema. Neck: Trachea midline, no thyromegaly or masses palpated, and no cervical lymphadenopathy. Supple, full range of motion without nuchal rigidity, or vertebral point tenderness. No Meningismus. Cardiovascular: Regular rate and rhythm with a normal S1 and S2. No gallops, murmurs, or rubs. Normal PMI, no JVD. No pulse deficits. Abdomen/GI: Soft, non-tender, with normal bowel sounds. No distension or tympany. No guarding or rebound. No evidence of tenderness throughout. Back: No spinal tenderness. No costovertebral tenderness. Full range of motion. MS/ Extremity: Pulses equal, no cyanosis. Neurovascular intact. Full, normal range of motion. 08:22 Respiratory: the patient does not display signs of respiratory distress, Respirations: normal, Breath sounds: decreased breath sounds, that are mild, are scattered. 08:22 Neuro: Orientation: Not oriented to place, time, Mentation: is normal, Memory: immediate memory is intact, Motor: is normal, Sensation: is normal. Vital Signs: 08:20 BP 134 / 70; Pulse 94; Resp 20; Temp 103.1; Pulse Ox 97% on R/A; ll3 10:30 BP 118 / 63; Pulse 84; Resp 18; Temp 98.5(O); Pulse Ox 98% on R/A; ld1 NIH Stroke Scale Scores: 08:22 NIHSS Score: 0 jh7 MDM: 08:[address] [facility] 10:22 Differential Diagnosis: electrolyte abnormality, hypoglycemia, pneumonia, sepsis, UTI, jh7 volume depletion. Data reviewed: vital signs, nurses notes, lab test result(s), EKG, radiologic studies, plain films. Consideration of Admission/Observation Patient was admitted/placed on observation. Management of patient was discussed with the following: Hospitalist: Dr. Mcguire. I considered the following discharge prescriptions or medication management in the emergency department Medications were administered in the Emergency Department. See MAR. Independent interpretation of the following test(s) in the Emergency Department EKG: See my EKG interpretation above. Historians other than the Patient: Spouse/Significant Other: . Care significantly affected by the following chronic conditions: Diabetes, Hypertension. Post IV fluid administration reassessment for Sepsis: Client not prescribed the 30 mL/kg IVF due to: concern for heart failure. Amount of IVF prescribed: 1000. Counseling: I had a detailed discussion with the patient and/or guardian regarding: the historical points, exam findings, and any diagnostic results supporting the discharge/admit diagnosis, the need for further work-up and treatment in the hospital. Response to treatment: the patient's symptoms have mildly improved after treatment. 02/25 08:19 Order name: Blood Culture Adult (2) [facility] 02/25 08:19 Order name: CBC with Diff; Complete Time: 10:07 [facility] 02/25 08:19 Order name: CMP; Complete Time: 09:55 [facility] 02/25 08:19 Order name: Lactate w/ 2H reflex if indic.; Complete Time: 09:55 [facility] 02/25 08:19 Order name: Protime (+inr); Complete Time: 09:44 [facility] 02/25 08:19 Order name: Ptt, Activated; Complete Time: 09:44 [facility] 02/25 08:19 Order name: Urinalysis w/ reflexes; Complete Time: 09:44 [facility] 02/25 08:20 Order name: Troponin High Sensitivity; Complete Time: 09:55 [facility] 02/25 08:20 Order name: PROBNP; Complete Time: 09:55 [facility] 02/25 09:11 Order name: Urine Culture [facility] 02/25 10:00 Order name: CBC Smear Scan; Complete Time: 10:07 [facility] 02/25 11:06 Order name: CBC with Automated Diff [facility] 02/25 11:06 Order name: CBC with Automated Diff [facility] 02/25 11:06 Order name: Comprehensive Metabolic Panel [facility] 02/25 11:06 Order name: Comprehensive Metabolic Panel [facility] 02/25 08:19 Order name: Chest Single View XRAY; Complete Time: 10:07 [facility] 02/25 08:19 Order name: EKG; Complete Time: 08:20 7 02/25 11:06 Order name: Regular [facility] 02/25 08:19 Order name: Accucheck; Complete Time: 08:45 7 02/25 08:19 Order name: Cardiac monitoring; Complete Time: 08:45 7 02/25 08:19 Order name: EKG - Nurse/Tech; Complete Time: 08:32 7 02/25 08:19 Order name: IV Saline Lock - Large Bore; Complete Time: 08:45 7 02/25 08:19 Order name: Labs collected and sent; Complete Time: 08:45 7 02/25 08:19 Order name: O2 Per Protocol; Complete Time: 08:20 7 02/25 08:19 Order name: O2 Sat Monitoring; Complete Time: 08:20 7 02/25 08:19 Order name: Vital Signs; Complete Time: 08:45 [facility] 04 10:22 Order name: Recheck Vital Signs; Complete Time: 10:31 jh7 EC:35 Rate is 90 beats/min. Rhythm is regular. QRS [place] is Normal. MO interval is prolonged jh7 at 244 msec. QRS interval is normal at 98 msec. QT interval is normal at 370 msec. No Q waves. T waves are Inverted in leads V1, V2. No ST changes noted. Clinical impression: NSR w/ Non-specific ST/T Changes. Administered Medications: 08:45 Drug: NS 0.9% IV 500 ml Route: IV; Rate: bolus; Site: left hand; 1 13:04 Follow up: IV Status: Completed infusion; IV Intake: 500ml 1 08:54 Drug: Acetaminophen PO 1000 mg Route: PO; ll1 13:05 Follow up: Response: No adverse reaction 1 09:55 Not Given (Physician Discretion): NS 0.9% IV 1000 ml IV at 1 bolus Per protocol; 1000 jh7 mL bolus 10:01 Drug: Rocephin IV 1 grams Route: IV; Rate: 1 calculated rate; Site: left hand; ll1 13:05 Follow up: Response: No adverse reaction; IV Status: Completed infusion; IV Intake: [id number] 10:17 Drug: Potassium Chloride IV 10 mEq Route: IV; Rate: 1 calculated rate; Site: right hand;ld1 13:05 Follow up: Response: No adverse reaction; IV Status: Completed infusion; IV Intake: [id number] 10:17 Drug: NS 0.9% IV 500 ml Route: IV; Rate: bolus; Site: right hand; ld1 13:05 Follow up: Response: No adverse reaction; IV Status: Completed infusion; IV Intake: ll1 500ml 10:18 Drug: Potassium PO Effervescent Tablet 50 mEq Route: PO; ld1 13:05 Follow up: Response: No adverse reaction ll1 Disposition Summary: 02/25/23 10:21 Hospitalization Ordered Hospitalization Status: Inpatient Admission [facility] Provider: Pedrito Mcguire [facility] Location: Telemetry/MedSurg (Inpatient) [facility] Condition: Stable [facility] Problem: [facility] Symptoms: are unchanged [facility] Bed/Room Type: Standard [facility] Room Assignment: 408(02/25/23 11:18) [facility] Diagnosis - UTI/ Urinary tract infection, site not specified [facility] - Severe sepsis without septic shock [facility] Forms: - Medication Reconciliation Form [facility] - SBAR form [facility] NIH Stroke Scale - NIH Stroke Score Date: 02/25/2023 Time: 08:22 Total Score = 0 10. Dysarthria (speech clarity - read or repeat words) - 0(Normal) 11. Extinction and Inattention (visual/tactile/auditory/spatial/personal) - 0(No abnormality) 1a. Level of Consciousness (LOC) - 0(Alert) 1b. Level of Consciousness (LOC) (Month \T\ Age) - 0(Both) 1c. LOC Commands (Open \T\ Closes Eyes/Physician Industrial) - 0(Both) 2. Best Gaze (Lateral Gaze Paresis) - 0(Normal) 3. Visual Field Loss - 0(No visual loss) 4. Facial Palsy - 0(Normal) 5a. Left Arm: Motor (10-second hold) - 0(No drift) 5b. Right Arm: Motor (10-second hold) - 0(No drift) 6a. Left Leg: Motor (5-second hold - always test supine) - 0(No drift) 6b. Right Leg: Motor (5-second hold - always test supine) - 0(No drift) 7. Limb Ataxia (finger/nose \T\ heel/engel - test with eyes open) - 0(Absent) 8. Sensory Loss (pinprick arms/legs/face) - 0(Normal) 9. Best Language: Aphasia (description/naming/reading) - 0(No aphasia) Initials: [facility] Signatures: Dispatcher [employer] Sonia Dhillon RN RN jl7 Yolanda Peraza RN RN ll1 Lauren Miller RN RN ld1 Markell Werner RN RN ll3 Tisha Feliciano FNP [place] [address] Corrections: (The following items were deleted from the chart) 08:40 08:22 The patient presents with confusion, [place] [address] 11:18 10:21 [place] [id number]
--- NOTE | 2023-02-25 10:22 | ER ---
Nurse's Notes [facility] Name: Truong Thompson Jr Age: 67 yrs Sex: Male : 1955 Arrival Date: 02/25/2023 Time: 08:15 Bed 4 Private MD: Diagnosis: UTI/ Urinary tract infection, site not specified;Severe sepsis without septic shock Presentation: 02/25 08:20 Chief complaint: Patient states: Fever, confusion, urinary frequency EMS states: Temp ll3 103. 20 G L arm. Coronavirus screen: Client denies travel out of the [place] in the last 14 days. chills, cough unrelated to allergies, fatigue, fever, Client presents with at least one sign or symptom that may indicate coronavirus-19. Standard/surgical mask placed on the client. Ebola Screen: Patient denies travel to an Ebola-affected area in the 21 days before illness onset. Initial Sepsis Screen: Does the patient meet any 2 criteria? HR > 90 bpm. No. Patient's initial sepsis screen is negative. Does the patient have a suspected source of infection? Yes: Dysuria/Frequency/Urgency/UTI. Risk Assessment: Do you want to hurt yourself or someone else? Patient reports no desire to harm self or others. Onset of symptoms is unknown. 08:20 Method Of Arrival: EMS: [facility] ll3 08:20 Acuity: NICKI 2 ll3 Triage Assessment: 08:22 General: Appears in no apparent distress. Behavior is calm, cooperative, appropriate ll3 for age. General: Reports fever for feeling ill for fatigue for. Neuro: Reports weakness. : Reports urinary frequency. Historical: - Allergies: 08:22 No Known Allergies; ll3 - PMHx: 08:22 Hypertensive disorder; Diabetes mellitus; ll3 - Immunization history:: Adult Immunizations up to date. - Social history:: Smoking status: Patient/guardian denies using tobacco, the patient reports quitting approximately 15 years ago. Screenin:06 [facility] ED Fall Risk Assessment (Adult) Score/Fall Risk Level 0 - 2 = Low Risk. Abuse ll1 screen: Denies threats or abuse. Nutritional screening: No deficits noted. Tuberculosis screening: No symptoms or risk factors identified. Assessment: 09:18 Reassessment: No changes from previously documented assessment. Patient and/or family ll1 updated on plan of care and expected duration. Pain level reassessed. Patient is alert, 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, equal unlabored respirations, skin warm/dry/pink. 10:52 Reassessment: No changes from previously documented assessment. Patient and/or family ll1 updated on plan of care and expected duration. Pain level reassessed. Vital Signs: 08:20 BP 134 / 70; Pulse 94; Resp 20; Temp 103.1; Pulse Ox 97% on R/A; ll3 10:30 BP 118 / 63; Pulse 84; Resp 18; Temp 98.5(O); Pulse Ox 98% on R/A; ld1 NIH Stroke Scale Scores: 08:22 NIHSS Score: 0 [facility] er ED Course: 08:17 Patient arrived in ED. eb 08:18 [facility] 7 08:18 Chapincito Wright MD is Attending Physician. 7 08:19 Lauren Miller, RN is Primary Nurse. ld1 08:22 Triage completed. ll3 08:23 Arm band placed on Patient placed in an exam room, on a stretcher. ll3 08:32 EKG done, by ED staff. tm3 09:02 Chest Single View XRAY In Process Unspecified. EDMS 10:21 Pedrito Mcguire MD is Hospitalizing Provider. 7 14:00 Patient has correct armband on for positive identification. Placed in gown. Bed in low ld1 position. Call light in reach. Side rails up X2. Pulse ox on. NIBP on. Door closed. Noise minimized. Warm blanket given. 14:00 No provider procedures requiring assistance completed. Patient admitted, IV remains in ld1 place. Administered Medications: 08:45 Drug: NS 0.9% IV 500 ml Route: IV; Rate: bolus; Site: left hand; ld1 13:04 Follow up: IV Status: Completed infusion; IV Intake: 500ml ll1 08:54 Drug: Acetaminophen PO 1000 mg Route: PO; 1 13:05 Follow up: Response: No adverse reaction ll1 09:55 Not Given (Physician Discretion): NS 0.9% IV 1000 ml IV at 1 bolus Per protocol; 1000 jh7 mL bolus 10:01 Drug: Rocephin IV 1 grams Route: IV; Rate: 1 calculated rate; Site: left hand; ll1 13:05 Follow up: Response: No adverse reaction; IV Status: Completed infusion; IV Intake: [id number] 10:17 Drug: Potassium Chloride IV 10 mEq Route: IV; Rate: 1 calculated rate; Site: right hand;ld1 13:05 Follow up: Response: No adverse reaction; IV Status: Completed infusion; IV Intake: [id number] 10:17 Drug: NS 0.9% IV 500 ml Route: IV; Rate: bolus; Site: right hand; ld1 13:05 Follow up: Response: No adverse reaction; IV Status: Completed infusion; IV Intake: ll1 500ml 10:18 Drug: Potassium PO Effervescent Tablet 50 mEq Route: PO; ld1 13:05 Follow up: Response: No adverse reaction ll1 Medication: 14:00 VIS not applicable for this client. ld1 Intake: 13:04 IV: 500ml; Total: 500ml. ll1 13:05 IV: 10ml; Total: 510ml. ll1 13:05 IV: 25ml; Total: 535ml. ll1 13:05 IV: 500ml; Total: 1035ml. ll1 Outcome: 10:21 Decision to Hospitalize by Provider. deborah 14:00 Admitted to Med/surg accompanied by tech, via wheelchair, room 409, with chart, Report ld1 called to MELANY Caruso 14:00 Condition: stable 14:00 Instructed on the need for admit. 14:00 Patient left the ED. ld1 NIH Stroke Scale - NIH Stroke Score Date: 02/25/2023 Time: 08:22 Total Score = 0 10. Dysarthria (speech clarity - read or repeat words) - 0(Normal) 11. Extinction and Inattention (visual/tactile/auditory/spatial/personal) - 0(No abnormality) 1a. Level of Consciousness (LOC) - 0(Alert) 1b. Level of Consciousness (LOC) (Month \T\ Age) - 0(Both) 1c. LOC Commands (Open \T\ Closes Eyes/Log Driver) - 0(Both) 2. Best Gaze (Lateral Gaze Paresis) - 0(Normal) 3. Visual Field Loss - 0(No visual loss) 4. Facial Palsy - 0(Normal) 5a. Left Arm: Motor (10-second hold) - 0(No drift) 5b. Right Arm: Motor (10-second hold) - 0(No drift) 6a. Left Leg: Motor (5-second hold - always test supine) - 0(No drift) 6b. Right Leg: Motor (5-second hold - always test supine) - 0(No drift) 7. Limb Ataxia (finger/nose \T\ heel/engel - test with eyes open) - 0(Absent) 8. Sensory Loss (pinprick arms/legs/face) - 0(Normal) 9. Best Language: Aphasia (description/naming/reading) - 0(No aphasia) Initials: [facility] er Signatures: Dispatcher [employer] EDMS Balbir Barron tm3 Kavitha Toscano Lynsay RN RN ll1 Lauren Miller RN RN ld1 Markell Werner RN RN ll3 Tisha Feliciano, POWER TRANSFORMER ASSEMBLER POWER TRANSFORMER ASSEMBLER [facility] er
[2023-02-25] MEDS: POTASSIUM 25 MEQ EFFERV TAB PO SCH ×2 (11:09→20:17)
--- NOTE | 2023-02-25 11:09 | P.HP ---
Certification for Inpatient Patient admitted to: Observation With expected LOS: <2 Midnights Patient will require the following post-hospital care: None Practitioner: I am a practitioner with admitting privileges, knowledge of patient current condition, hospital course, and medical plan of care. Services: Services provided to patient in accordance with Admission requirements found in Title 42 Section 412.3 of the Code of Federal Regulations Patient History Date of Service: 02/25/23 Reason for admission: Urosepsis History of Present Illness: Patient is 67 years of age she he woke up at 3 AM developed severe chills and was having experiencing urinary frequency at the bedside felt very weak he has been having problems for the past week here in vacation in the living [place] patient was became unresponsive very weak admitted to the hospital with urosepsis - Past Medical/Surgical History -: Diabetes -: Hypertension -: Hyperlipidemia -: Coronary artery disease -: S/p CABG - Social History Smoking Status: Former smoker Review of Systems 10-point ROS is otherwise unremarkable Physical Examination - Vital Signs Temperature: 103.1 F Blood Pressure: 134/70 Pulse: 94 Respirations: 20 Pulse Ox (%): 97 - Physical Exam General: Alert, Oriented x3 HEENT: Atraumatic Neck: Supple Respiratory: Clear to auscultation bilaterally, Friction rub Cardiovascular: Regular rate/rhythm, Normal S1 S2 Gastrointestinal: Normal bowel sounds, Soft and benign Musculoskeletal: No clubbing Integumentary: No rashes, No significant lesion Lymphatics: No axilla or inguinal lymphadenopathy External genitalia: No edema, No masses - Studies Laboratory Data (last 24 hrs) 02/25/23 09:15: PT 12.6 H, INR 1.15, APTT 24.6 02/25/23 09:15: Sodium 137, Potassium 2.8 L, BUN 16, Creatinine 1.08, Glucose 171 H, Total Bilirubin 0.7, AST 11 L, ALT 20, Alkaline Phosphatase 81 02/25/23 09:15: WBC 7.30, Hgb 12.7 L, Hct 37.8 L, Plt Count 210 Assessment and Plan - Problems (Diagnosis) (1) UTI (urinary tract infection) Current Visit: Yes Status: Acute Plan: Patient is 67 years of age admitted with urosepsis mated with fever chills mildly anemic hypokalemia tach acid is elevated urinalysis positive for infection has been sick for a week was here vacationing from [place] Profound weakness at the bedside will admit with IV antibiotics IV fluids cultures pending correct electrolyte abnormality Qualifiers: Urinary tract infection type: acute cystitis - Advance Directives Does patient have a Living Will: No Does patient have a Durable POA for Healthcare: No
[2023-02-25] MEDS: INSULIN -REGULAR HUMAN 50 UNIT/0.5 ML ML SQ SCH ×3 (11:30→20:19)
[2023-02-25 14:33] VITALS: O2SAT 98
[2023-02-25 14:47] VITALS: BMI 42.2
[2023-02-25] MEDS: NA CHLORIDE 0.9% 1,000 ML IV SCH ×2 (15:13→22:00)
[2023-02-25] MEDS: INSULIN GLARGINE 100 UNIT/ML SQ SCH (21:00)
[2023-02-25] MEDS ORDERED: LOSARTAN/HCTZ 50-12.5 PO SCH (21:00)
[2023-02-25] MEDS ORDERED: HOME MED 1 EA UNK (Insulin Aspart [Novolog Flexpen] 100 UNIT/ML Insuln.Pen) SQ SCH (21:00)
[2023-02-25] MEDS: TAMSULOSIN 0.4 MG SR CAP PO SCH (21:04)
[2023-02-25] MEDS: BUPROPION HCL XL 150 MG TAB PO SCH (21:04)
[2023-02-25] MEDS: PANTOPRAZOLE 40MG TABLET PO SCH (21:05)
[2023-02-25] MEDS: ATORVASTATIN 40 MG TAB PO SCH (21:05)
[2023-02-25] MEDS: METOPROLOL XL 50 MG TAB PO SCH (21:05)
[2023-02-25] MEDS: ACETAMINOPHEN 500 MG TAB PO PRN (21:14)
[2023-02-25 21:25] LABS: Potassium 3.3 mEq/L (3.5-5.1)
[2023-02-26] MEDS: NA CHLORIDE 0.9% 1,000 ML IV SCH ×2 (02:24→13:07)
[2023-02-26 06:15] LABS: Absolute Lymphocytes (CBC) 0.9 K/uL (0.7-4.9); Hematocrit 35.6 % (39.6-49.0); Lymphocytes % 9.2 % (15.3-44.8); MCV 83.9 fL (80-100); MPV 8.8 fL (7.6-11.3); RBC Red Blood Cell Count 4.25 M/uL (4.33-5.43)
[2023-02-26 06:29] LABS: Albumin 2.7 g/dL (3.4-5.0); Bilirubin Total 0.8 mg/dL (0.2-1.0); Potassium 2.9 mEq/L (3.5-5.1); Protein, Total 6.2 g/dL (6.4-8.2)
[2023-02-26] MEDS: INSULIN -REGULAR HUMAN 50 UNIT/0.5 ML ML SQ SCH ×4 (07:30→21:00)
[2023-02-26] MEDS: POTASSIUM 25 MEQ EFFERV TAB PO SCH ×2 (08:28→21:07)
[2023-02-26] MEDS: CEFTRIAXONE 1,000 MG in NA CHLORIDE 0.9% 50 ML IVPB SCH (08:28)
[2023-02-26] MEDS: ACETAMINOPHEN 500 MG TAB PO PRN (08:28)
[2023-02-26] MEDS: INSULIN GLARGINE 100 UNIT/ML SQ SCH ×2 (08:29→21:00)
[2023-02-26] MEDS ORDERED: LOSARTAN POTASSIUM 50 MG TABLET PO SCH (09:00)
--- NOTE | 2023-02-26 10:16 | EKG ---
Test Date: 2023-02-25 Test Time: 08:30:28 Rail Switchman: YRIS MEASUREMENT RESULTS: Intervals: Rate: 90 [place]: 244 QRSD: 98 QT: 370 QTc: 452 [place]: P: 58 [place]: 244 QRS: 18 T: 83 INTERPRETIVE STATEMENTS: Sinus rhythm with 1st degree AV block Otherwise normal ECG No previous ECG available for comparison Electronically Signed On 02-26-23 10:13:52 CDT by Félix Brown
--- NOTE | 2023-02-26 14:45 | RAD REPORT ---
EXAM DESCRIPTION: US - Renal Ultrasound-Complete - 02/26/2023 2:38 pm CLINICAL HISTORY: urosepsis Flank pain COMPARISON: No comparisons FINDINGS: Both kidneys are normal in size, shape and echotexture. The right kidney measures 12.0 x 5.1 x 4.9 cm. No hydronephrosis, focal mass or perinephric fluid. The left kidney measures 11.8 x 5.7 x 4.8 cm. No hydronephrosis, focal mass or perinephric fluid. 4.2 x 3.7 cm exophytic cyst. The urinary bladder is incompletely distended without gross abnormality seen. Gallstones incidentally noted. IMPRESSION: 4.2 cm benign-appearing left renal cyst. Otherwise no suspicious renal finding. Incidental cholelithiasis.
--- NOTE | 2023-02-26 17:31 | P.PN ---
Subjective Date of Service: 02/26/23 Chief Complaint: Urosepsis No acute events overnight. Per his family, he came in to the hospital very confused. He does not remember the events of yesterday. Today, his mental status has improved significantly and is back to baseline per his family. He denies any chest pain, palpitations, or shortness of breath. Review of Systems 10-point ROS is otherwise unremarkable Physical Examination - Vital Signs Temperature: 98.4 F Blood Pressure: 122/64 Pulse: 72 Respirations: 18 Pulse Ox (%): 95 - Physical Exam General: Alert, In no apparent distress, Oriented x3 HEENT: Atraumatic, Sclerae nonicteric Neck: JVD not distended, No Thyromegaly Respiratory: Clear to auscultation bilaterally, Normal air movement Cardiovascular: No edema, Regular rate/rhythm, Normal S1 S2, No gallops, No rubs, No murmurs Gastrointestinal: Normal bowel sounds, Soft and benign, Non-distended, No tenderness, No rebound, No guarding Musculoskeletal: No clubbing Integumentary: No rashes Neurological: Normal speech, Normal affect Assessment And Plan - Plan # Severe Sepsis secondary to Gram-Negative Urinary Tract Infection - POA # Acute Toxic Metabolic Encephalopathy secondary to above - resolved He met sepsis criteria based on temperature > 100.9 F and HR > 90 bpm, and the suspected source is urinary. Severe sepsis is suspected due to concern for tissue hypoperfusion/organ dysfunction based on lactic acid > 2 mmol/L. - Sepsis order set was initiated - Chest x-ray = "retrocardiac airspace opacification, could be related to atelectasis, early airspace disease, or prominent epicardial fat pad." - UA = 4+ glucose, trace blood, 2+ nitrite, 250 leukocyte esterase, 11-20 RBCs, 10-20 WBCs, >50 bacteria - Lactate trend: 2.7 -> 3.5 -> 2.5 -> 1.5 - Urine culture = gram-negative rods - Blood cultures drawn before antibiotics were given - Broad spectrum antibiotics started: Ceftriaxone - In regards to fluids: - 30 mL/kg of IV fluids was not administered given SBP > 90, MAP > 65, lactic acid < 4 # Coronary Artery Disease s/p CABG # Hypertension # Hyperlipideia - Continue home atorvastatin, metoprolol, losartan - Not on aspirin due to allergy # Type II Diabetes Mellitus - Continue insulin - Hold home empagliflozin as this may precipitate UTIs # Benign Prostatic Hyperplasia - Continue home tamsulosin # Left Renal Cyst (4.2 cm) # Cholelithiasis - Renal ultrasound = "4.2 cm benign-appearing left renal cyst. Otherwise no suspicious renal finding. Incidental cholelithiasis." - Follow-up with PCP for further evaluation Cash Davies M.D.
[2023-02-26 20:17] LABS: Magnesium 1.6 mg/dL (1.6-2.4); Potassium 3.3 mEq/L (3.5-5.1)
[2023-02-26] MEDS: PANTOPRAZOLE 40MG TABLET PO SCH (21:07)
[2023-02-26] MEDS: METOPROLOL XL 50 MG TAB PO SCH (21:07)
[2023-02-26] MEDS: ATORVASTATIN 40 MG TAB PO SCH (21:08)
[2023-02-26] MEDS: TAMSULOSIN 0.4 MG SR CAP PO SCH (21:08)
[2023-02-26] MEDS: BUPROPION HCL XL 150 MG TAB PO SCH (21:13)
[2023-02-27 06:03] LABS: Absolute Lymphocytes (CBC) 1.1 K/uL (0.7-4.9); Hematocrit 33.9 % (39.6-49.0); Lymphocytes % 15.3 % (15.3-44.8); MCV 82.6 fL (80-100); MPV 8.8 fL (7.6-11.3)
[2023-02-27 06:21] LABS: Potassium 3.1 mEq/L (3.5-5.1)
[2023-02-27] MEDS: INSULIN -REGULAR HUMAN 50 UNIT/0.5 ML ML SQ SCH (07:30)
--- NOTE | 2023-02-27 08:07 | P.DS ---
Admission Date: 02/25/23 Discharge Date: 02/27/23 Disposition: ROUTINE DISCHARGE Discharge Condition: GOOD Reason for Admission: Urosepsis Hospital Course: DIAGNOSES: # Severe Sepsis secondary to Escherichia Coli Urinary Tract Infection - POA # Acute Toxic Metabolic Encephalopathy secondary to above - resolved # Coronary Artery Disease s/p CABG # Hypertension # Hyperlipidemia # Type II Diabetes Mellitus # Benign Prostatic Hyperplasia # Left Renal Cyst (4.2 cm) # Cholelithiasis HOSPITAL COURSE: Mr. Truong Thompson is a pleasant 67 year old male with a past medical history significant for coronary artery disease s/p CABG, hypertension, hyperlipidemia, type 2 diabetes mellitus, and benign prostatic hyperplasia who was admitted to the [facility] on 02/25/2023 for fever and altered mental status. He was admitted to the Medicine service. Upon further evaluation, he was found to have severe sepsis and acute toxic metabolic encephalopathy secondary to an Escherichia Coli urinary tract infection. He was treated with IV antibiotics and, over the course of his hospitalization, his mental status and fever improved. This morning, he stated that he felt significantly better and would like to be discharged home. It was thought that his urinary tract infection may have been precipitated by his SGLT-2 inhibitor, so he was advised to discontinue empagliflozin on discharge. During his evaluation, he was noted to have microscopic hematuria. Although this may have been secondary to his urinary tract infection, he was advised that this can be a sign of an underlying urologic malignancy. He was advised to follow up with his PCP for further evaluation. Additionally, his renal ultrasound revealed, "4.2 cm benign-appearing left renal cyst. Otherwise no suspicious renal finding. Incidental cholelithiasis." He was informed of these findings and advised to schedule a follow-up with his PCP. He verbalized understanding and agreed to make this appointment. On 02/27/2023, he was seen on rounds and deemed medically stable for discharge. He was discharged with instructions to schedule follow-up appointments with his PCP (JUSTINO Barcenas). His losartan-hydrochlorothiazide was switched to losartan only due to his persistent hypokalemia. He was provided prescriptions for cefdinir and losartan. He and his were given the opportunity to ask questions and reported no further questions. Furthermore, all questions were answered to the best of my ability. Today, I personally spent 25 minutes on his case, of which greater than 50% of the time was spent in patient education, counseling, and coordination of care as described above. Vital Signs/Physical Exam: Temp Pulse Resp BP Pulse Ox 97.4 F 74 16 133/66 97 02/27/23 04:00 02/27/23 04:00 02/27/23 04:00 02/27/23 04:00 02/27/23 04:00 Laboratory Data at Discharge: WBC 6.90 thou/uL (4.3-10.9) 02/27/23 05:14 Hgb 11.3 g/dL (13.6-17.9) L 02/27/23 05:14 Hct 33.9 % (39.6-49.0) L 02/27/23 05:14 Plt Count 205 thou/uL (152-406) 02/27/23 05:14 PT 12.6 SECONDS (9.5-12.5) H 02/25/23 09:15 INR 1.15 02/25/23 09:15 APTT 24.6 SECONDS (24.3-36.9) 02/25/23 09:15 Sodium 139 mEq/L (136-145) 02/27/23 05:14 Potassium 3.1 mEq/L (3.5-5.1) L 02/27/23 05:14 BUN 13 mg/dL (7-18) 02/27/23 05:14 Creatinine 0.93 mg/dL (0.70-1.30) 02/27/23 05:14 Glucose 136 mg/dL (74-106) H 02/27/23 05:14 Magnesium 1.6 mg/dL (1.6-2.4) 02/26/23 19:39 Total Bilirubin 0.8 mg/dL (0.2-1.0) 02/26/23 05:32 AST 17 U/L (15-37) 02/26/23 05:32 ALT 19 U/L (16-61) 02/26/23 05:32 Alkaline Phosphatase 60 U/L (45-117) D 02/26/23 05:32 Home Medications: Atorvastatin Calcium 40 mg PO BEDTIME 02/25/23 Bupropion *Xl* [Wellbutrin XL*] 150 mg PO BEDTIME 02/25/23 Dulaglutide [Trulicity] 3 mg SQ EVERY 7TH DAY 02/25/23 Insulin Aspart [Novolog Flexpen] 3 - 15 unit SQ ACHS 02/25/23 Insulin Glargine,Hum.rec.anlog [Basaglar Kwikpen U-100] 21 unit SQ BID 02/25/23 Metoprolol Succinate [Toprol Xl*] 50 mg PO BEDTIME 02/25/23 PARoxetine HCL [Paxil Cr] 37.5 mg PO BEDTIME 02/25/23 Pantoprazole Sodium [Protonix] 40 mg PO BEDTIME 02/25/23 Tamsulosin HCl [Flomax] 0.4 mg PO BEDTIME 02/25/23 Cefdinir [Cefdinir*] 300 mg PO BID 7 Days #14 cap 02/27/23 Losartan Potassium 100 mg PO DAILY #30 tab 02/27/23 New Medications: Cefdinir [Cefdinir*] 300 mg PO BID 7 Days #14 cap Losartan Potassium 100 mg PO DAILY #30 tab Physician Discharge Instructions: 1. Please call and schedule a follow-up appointment with your PCP (JUSTINO Gill) in 3-5 days - Please have your potassium level rechecked at this appointment. - You were found to have a spot on your kidney (suspected cyst) and gallbladder stones - please discuss with your PCP - As we discussed, your chest x-ray revealed haziness of unclear clinical significance. Clinically, you do not appear to have pneumonia - please review x- ray results with your PCP - There was a small amount of blood in your urine. Although this can be seen in a urinary tract infection, bladder/kidney cancer must be excluded. Please have your PCP repeat your urine study once your infection has healed. - We have discontinued your empagliflozin (Jardiance) as this can increase your risk for urinary tract infections, please discuss other diabetes medication options with your PCP - We have switched your combination pill (losartan-hydrochlorothiazide) to losartan only because your potassium levels were low Diet: ADA Activity: Ad ino Followup: NONE,NONE [Primary Care Provider] - Time spent managing pt's care (in minutes): 25
[2023-02-27] MEDS ORDERED: POTASSIUM 25 MEQ EFFERV TAB PO ONE (08:18)
[2023-02-27] MEDS: CEFTRIAXONE 1,000 MG in NA CHLORIDE 0.9% 50 ML IVPB SCH (09:00)
[2023-02-27] MEDS ORDERED: LOSARTAN POTASSIUM 50 MG TABLET PO SCH (09:00)
[2023-02-27] MEDS: POTASSIUM 25 MEQ EFFERV TAB PO SCH (09:01)
[2023-02-27] MEDS: ACETAMINOPHEN 500 MG TAB PO PRN (09:01)
[2023-02-27] MEDS: INSULIN GLARGINE 100 UNIT/ML SQ SCH (09:01)
[2023-02-27 09:10] VITALS: BP 114/67; TEMP 97.8
== END 2023-02-27 10:30 | disposition home or self-care (01) ==
LOC: ER 08:15 → ERHOLD 11:02 → 4TH 13:23
PROVIDERS: ADMIT Internal Medicine; ATTEND Internal Medicine
DX: N39.0 Urinary tract infection, site not specified (principal); B96.20 Unspecified Escherichia coli [E. coli] as the cause of diseases classified elsewhere; R65.20 Severe sepsis without septic shock; R31.29 Other microscopic hematuria; G92.8 Other toxic encephalopathy; I25.10 Atherosclerotic heart disease of native coronary artery without angina pectoris; I10 Essential (primary) hypertension; E78.5 Hyperlipidemia, unspecified; E11.9 Type 2 diabetes mellitus without complications; N40.0 Benign prostatic hyperplasia without lower urinary tract symptoms; N28.1 Cyst of kidney, acquired; K80.20 Calculus of gallbladder without cholecystitis without obstruction; Z95.1 Presence of aortocoronary bypass graft
CPT/HCPCS: 93005; 87040 ×2; 87088; 85025 ×3; 81001; 87086; 80048 ×3; 36415 ×2; 83735; 85610; 82947 ×9; 83605 ×4; 85730; 87077; 87186; 84484; 80053 ×2; 83880; 71045; 76770; 99285; J1815 ×2; J3480; J7040; J7030 ×4; J0696 ×3; G0378 ×5